=== PATIENT | male | born 1945 | race Caucasian/White ===

== ENCOUNTER → 2017-06-30 11:15 | Outpatient (CLI) | payer MEDICARE, SELFPAY ==
[2017-06-30 11:55] LABS: Absolute Lymphocyte Count 1.87 X10^3/ul (0.83-4.51); Absolute Neutrophil Count 5.7 X10^3/uL (2.0-7.7); Basophil# 0.01 X10^3/uL; Basophil% 0.1 % (0-1); Eosinophil# 0.14 X10^3/uL; Eosinophils% 1.7 % (0-5); Hematocrit 53.6 % (40-54); Lymphocyte # 1.87 X10^3/ul (4.0); Lymphocyte % 22.7 % (19-41); Mean Corp Hgb Conc 33.8 g/gl (32-36); Mean Corpuscular Hgb 33.3 pg (27.0-32.0); Mean Corpuscular Volume 98.7 fL (80-94); Mean Platelet Vol. 10.6 fl (6.2-12.0); Monocyte% 6.1 % (0-10); Neutrophil # 5.71 X10^3/uL (2.7-7.7); Neutrophil % 69.2 % (47-70); Platelet Count 126 K/mm3 (150-450); RBC Distribution Width CV 14.5 % (11.6-14.6); RBC Distribution Width SD 52.6 fl (35.1-43.9); Red Blood Count 5.43 M/mm3 (4.6-6.2); White Blood Count 8.3 K/mm3 (4.4-11.0)
[2017-06-30 11:57] LABS: POSITIVE COUNT NO; POSITIVE DIFFERENTIAL NO; POSITIVE MORPHOLOGY NO
[2017-06-30 11:58] LABS: Hemoglobin 18.1 g/dl (13.0-16.5)
[2017-06-30 12:37] LABS: ALB/GLOB Ratio 0.8 RATIO (0.9-2.4); AST(SGOT) 22 U/L (15-37); Alanine Aminotransfer ALT/SGPT 29 U/L (16-61); Albumin, Serum 3.2 g/dL (3.2-5.0); Alkaline Phosphatase 65 U/L (45-117); Anion Gap 7 (5-15); BUN 33 mg/dL (7-18); BUN/Creat Ratio 16.9 RATIO (10-20); Calcium,Total 8.4 mg/dL (8.5-10.1); Chloride 104 mmol/L (98-107); Cholesterol 112 mg/dL (200); Creatinine, Serum 1.95 mg/dL (0.70-1.30); EST Glomerular Filtration Rate 36 mL/min (>60); Est Glom Filt Rate - Afr Amer 44 mL/min (>60); Globulin 3.9 g/dL (2.2-4.2); Glucose 236 mg/dL (74-106); High Density Lipoprotein 37 mg/dL; Iron 81 ug/dL (65-175); PSA,Total - Annual Screen 0.87 ng/mL (0.00-4.00); Potassium 4.7 mmol/L (3.5-5.1); Protein, Total 7.1 g/dL (6.4-8.2); Sodium Level 138 mmol/L (136-145); Thyroid Stim Hormone (TSH) 3.93 uIU/mL (0.358-3.74); Triglycerides 117 mg/dL; Very Low Density Lipoprotein 23 mg/dL (5-40)
[2017-07-01 09:00] LABS: Vitamin D,25 Hydroxy 15.7 ng/mL (29.95-100.01)
== END ==
PROVIDERS: Family Medicine; Family Provider Family Medicine; PCP Family Medicine; Visit Provider Family Medicine
DX: E11.49 Type 2 diabetes mellitus with other diabetic neurological complication (principal); E11.65 Type 2 diabetes mellitus with hyperglycemia; I50.812 Chronic right heart failure; R39.12 Poor urinary stream; Z12.5 Encounter for screening for malignant neoplasm of prostate
CPT/HCPCS: 36415; 80053; 80061; 82306; 83540; 84153; 84443; 85025; G0103

== ENCOUNTER → 2017-08-11 09:40 | Outpatient (CLI) | payer MEDICARE, SELFPAY ==
[2017-08-12 08:42] LABS: Vitamin B12 576 pg/mL (211-911)
[2017-08-13 09:25] LABS: PSA, Free 0.17 ng/mL; PSA, Free % 24.3 % (.); PSA, Total Ultrasensitive 0.7 ng/mL (0.0-4.0)
== END ==
PROVIDERS: Family Provider Family Medicine; PCP Family Medicine; Visit Provider Family Medicine
DX: D53.1 Other megaloblastic anemias, not elsewhere classified (principal); R68.82 Decreased libido
CPT/HCPCS: 36415; 82607; 82746; 84153; 84154; 84403

== ENCOUNTER → 2017-09-18 07:10 | Outpatient (CLI) | payer MEDICARE, SELFPAY ==
--- NOTE | 2017-09-19 06:16 | PFTCOMP ---
COMPLETE PULMONARY FUNCTION TEST INTERPRETATION Brief HPI: Patient is a 71 year old male, currently under the care of Dr. Molina, who presents to [facility] for complete pulmonary function tests secondary to diagnosis of high-risk med use. Respiratory therapist reports good effort and reproducible results. Interpretation: Forced expiration spirometry shows no large airways obstructive ventilatory defect with an FEV1 of 75% predicted. There is no significant bronchodilator response by ATS criteria. Spirograms are of good quality and plateau slowly, indicating slowly emptying areas of the lungs. The respiratory flow volume loop shows decreased expiratory flow rates at high lung volumes consistent with small airways obstruction. Lung volumes by body plethysmography show a decreased total lung capacity at 5.88 L, 84% predicted. All other lung volumes are reduced symmetrically. Diffusion capacity by carbon monoxide is decreased at 59% predicted. The airway resistance is elevated. Compared to previous pulmonary function tests from 01/31/2016, there has been a significant reduction in DLCO by 23%. Impression: Mild restrictive ventilatory defect with a reduction diffusing capacity. There has been significant worsening in diffusing capacity compared to previous study. Consider high-resolution CT of the chest to evaluate for amiodarone toxicity versus possible fluid overload
== END ==
PROVIDERS: Family Provider Family Medicine; PCP Family Medicine; Visit Provider Internal Medicine Cardiovascular Disease
DX: I25.10 Atherosclerotic heart disease of native coronary artery without angina pectoris (principal); F17.200 Nicotine dependence, unspecified, uncomplicated; I25.5 Ischemic cardiomyopathy; I25.2 Old myocardial infarction; E78.5 Hyperlipidemia, unspecified; I10 Essential (primary) hypertension; E66.9 Obesity, unspecified; Z95.810 Presence of automatic (implantable) cardiac defibrillator
CPT/HCPCS: 94060; 94726; 94729

== ENCOUNTER 2018-01-02 07:40 | Emergency (ER) | payer MEDICARE, SELFPAY ==
[2018-01-02 07:41] VITALS: BP 137/76; PULSE 66; RESP 14; TEMP 36.8; O2SAT 95; BMI 32.3
--- NOTE | 2018-01-02 08:16 | VDLE_ITS ---
Reason For Study: LEG PAIN RIGHT LEFT GSV is normal. GSV is normal. CFV is compressible, spontaneous, phasic, CFV is compressible, spontaneous, phasic, competent and demonstrates normal competent, and demonstrates normal augmentation. augmentation. FV is compressible, spontaneous, phasic, FV is compressible, spontaneous, phasic, competent and demonstrates normal competent and demonstrates normal augmentation. augmentation. POP V is compressible, spontaneous, phasic, POP V is compressible, spontaneous, phasic, competent and demonstrates normal competent and demonstrates normal augmentation. augmentation. T/P Trunk is compressible. T/P Trunk is compressible. PTV is compressible. PTV is compressible. RT PerV is compressible. LT PerV is compressible. Procedure Exam performed portable in ED. A preliminary report was called and/or faxed to Dr. Christine. Interpretation Summary Deep veins of the lower extremities are bilaterally patent and compressible segmentally. There is no evidence of deep vein thrombosis on either side. Valvular competence appears intact within the proximal deep venous systems bilaterally. The greater saphenous veins appear bilaterally patent and compressible segmentally. Ordering Physician: Noris Christine Referring Physician: Nathen Chang MD Performed By: Mary Morrison RVT
--- NOTE | 2018-01-02 08:20 | ED.DCSUM_ITS ---
- ER Visit Summary Date of Service: 01/02/18 Chief Complaint: Bilateral lower extremity pain History of Present Illness: The patient is a 72 M with history of diabetic neuropathy who presents for worsening lower extremity pain. Patient states he was on his feet a lot yesterday. He got up during the night to use the bathroom and can barely put weight on his lower extremities secondary to pain. His normal diabetic neuropathy is just numbness on the bottom of his feet. Now he is having pain on the dorsum of the feet and up the calves to his knees, especially on the left. Patient denies any fever, chest pain, shortness of breath. No history of DVT or PE. No history of recent travel or surgery. Jovanna bennett has a pacemaker/defibrillator but is not on any blood thinners other than baby aspirin. Physical Examination: Vital signs: afebrile, hemodynamically stable, no hypoxia on room air General: well nourished, well developed, in no distress Skin: warm, dry, no rash, no pallor HEENT: normocephalic and atraumatic; PERRL, EOMI, moist mucous membranes Cardiovascular: regular rate and rhythm without murmurs, no peripheral edema, 2+ pulses all distal extremities Respiratory: No increased work of breathing, lungs are clear to auscultation bilaterally, no rales, rhonchi or wheezing Abdominal: Abdomen is soft, nontender with normoactive bowel sounds, no guarding or rebound, no masses MSK: Moves all extremities, no deformities, normal strength, tenderness to palpation of the dorsum of the feet, tenderness to palpation of the left posterior calf, no asymmetry or overt swelling to the calves, no palpable cords. Pain with flexion and extension of the left knee. Neuro: Awake and alert, oriented ?4. No facial droop, sensation and motor function intact and symmetric Test Results: Medications Given Discontinued Medications Hydrocodone Bitart/Acetaminophen ([place] 5mg-325mg) 1 tablet PO X1 ONE Stop: 01/02/18 08:17 Last Admin: 01/02/18 08:22 Dose: 1 tablet Emergency Department Course and Treatment: Patient was given a dose of [place] for his pain. He has a solitary kidney and thus cannot take NSAIDs. Patient specifically asked about Lyrica for his neuropathy, and we discussed that this is a medication best prescribed by his primary care doctor after weighing risks and benefits of the medication. Because of the acute change in patient's neuropathic pain, other causes of pain were considered in addition to worsening neuropathy. Patient's lower extremities are warm with good strong distal pulses, making vascular insufficiency unlikely. Ultrasound performed of bilateral lower extremities to rule out DVT. Ultrasound negative. Patient had no joint swelling or erythema, and had multiple joints involved, making septic joint unlikely. He has no fever or other systemic symptoms. Patient does have a history of gout in his left great toe, however his current complaint does not seem consistent with pain secondary to gout flare. On reevaluation, patient was feeling better after the pain medication. Patient was given a prescription for [place] to use for severe pain and was encouraged to use regular Tylenol for mild to moderate pain. He will not exceed 3000 mg of Tylenol in 24 hours. He will follow-up with his family doctor on Thursday, especially if he continues to have symptoms. Return precautions given. Patient discharged home in improved condition with his driving. Treatment Plan: [] Disposition: [] Impression: Bilateral lower extremity pain, history of diabetic neuropathy This note was generated with [employer] dictation software. It may contain incorrect words, spelling, and punctuation that were not noted in review of the chart prior to signing ED Disposition - Plan for ED Patient: Disposition: Home or Assisted Living Chief Complaint: Other, Pain/Inj Instructions: ED Joint Pain, ED Neuropathy Peripheral Prescriptions: Hydrocodone Bitart/Apap 5-325 [[place] 5MG-325MG] 1 tab PO Q6H PRN PRN 5 Days #15 tab PRN Reason: Pain Referrals: Nathen Chang MD [Primary Care Provider] - 3-5 Days Additional Instructions: Use Tylenol as needed for mild to moderate pain, and use the [place] for severe pain. Be very cautious when using the [place], as it may make you sleepy or make you feel loopy. Follow-up with your doctor on Thursday, especially if you are not having improvement. If at any time you have worsening of your condition, such as development of fever, severe worsening pain, or any other new symptoms, return immediately to the emergency department for another evaluation.
[2018-01-02] MEDS: HYDROcodone Bitartrate/Apap 5/325 Tablet PO (08:22)
[2018-01-02 10:05] VITALS: BP 151/70; PULSE 65; RESP 14; O2SAT 96
--- NOTE | 2018-01-02 10:18 | ED.DEP ---
ED Disposition - Plan for ED Patient: Disposition: Home or Assisted Living Chief Complaint: Other, Pain/Inj Instructions: ED Joint Pain, ED Neuropathy Peripheral Prescriptions: Hydrocodone Bitart/Apap 5-325 [[place] 5MG-325MG] 1 tab PO Q6H PRN PRN 5 Days #15 tab PRN Reason: Pain Referrals: Nathen Chang MD [Primary Care Provider] - 3-5 Days Additional Instructions: Use Tylenol as needed for mild to moderate pain, and use the [place] for severe pain. Be very cautious when using the [place], as it may make you sleepy or make you feel loopy. Follow-up with your doctor on Thursday, especially if you are not having improvement. If at any time you have worsening of your condition, such as development of fever, severe worsening pain, or any other new symptoms, return immediately to the emergency department for another evaluation.
== END 2018-01-02 10:27 | disposition home or self-care (01) ==
PROVIDERS: Emergency Provider Emergency Medicine; Family Provider Family Medicine; PCP Family Medicine
DX: M79.662 Pain in left lower leg (principal); M79.661 Pain in right lower leg; E11.42 Type 2 diabetes mellitus with diabetic polyneuropathy; I25.10 Atherosclerotic heart disease of native coronary artery without angina pectoris; I25.2 Old myocardial infarction; Z79.4 Long term (current) use of insulin; Z79.82 Long term (current) use of aspirin; Z79.899 Other long term (current) drug therapy; Z95.810 Presence of automatic (implantable) cardiac defibrillator
CPT/HCPCS: 93970; 99284

== ENCOUNTER → 2018-01-13 12:17 | Outpatient (CLI) | payer MEDICARE, SELFPAY ==
--- NOTE | 2018-01-13 12:21 | RAD_ITS ---
STUDY: X-RAY - LEFT FOOT CLINICAL: Male, 72 years old. Pain TECHNIQUE: 3 view(s) of the foot. COMPARISON: None. FINDINGS: Normal talus, calcaneus, and tarsal bones. Normal visualized subtalar, talonavicular, calcaneocuboid, tarsal and tarsometatarsal articulations. Normal metatarsi. There is degenerative arthrosis of the metatarsophalangeal joint of the hallux . Normal tibial and fibular sesamoid bones. Normal interphalangeal joint of the great toe. Normal phalanges of the great toe. Normal second through fifth metatarsophalangeal joints. Normal interphalangeal joints and phalanges of the lesser toes. The soft tissue structures are unremarkable. RAD/Foot min 3 Views IMPRESSION: There is NO fracture or malalignment. 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 Electronically Signed: Marty Bentley MD at 7:43 EDT , Service support ,
--- NOTE | 2018-01-13 12:28 | RAD_ITS ---
STUDY: X-RAY - RIGHT FOOT CLINICAL: Male, 72 years old. Bilateral foot pain TECHNIQUE: 3 view(s) of the foot. COMPARISON: None. FINDINGS: Normal talus, calcaneus, and tarsal bones. Normal visualized subtalar, talonavicular, calcaneocuboid, tarsal and tarsometatarsal articulations. Normal metatarsi. There is degenerative arthrosis of the metatarsophalangeal joint of the hallux . Normal tibial and fibular sesamoid bones. Normal interphalangeal joint of the great toe. Normal phalanges of the great toe. Normal second through fifth metatarsophalangeal joints. Normal interphalangeal joints and phalanges of the lesser toes. The soft tissue structures are unremarkable. 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 No erosive arthropathy. Electronically Signed: Judah Herrera MD at 8:12 EDT , Service support ,
== END ==
PROVIDERS: Family Provider Family Medicine; PCP Family Medicine; Referring Provider Family Medicine; Visit Provider Family Medicine
DX: M77.42 Metatarsalgia, left foot (principal)
CPT/HCPCS: 73630

== ENCOUNTER → 2018-02-22 14:42 | Outpatient (CLI) | payer MEDICARE, SELFPAY ==
[2018-02-22 16:14] LABS: Absolute Lymphocyte Count 1.82 X10^3/ul (0.83-4.51); Absolute Neutrophil Count 4.6 X10^3/uL (2.0-7.7); Basophil# 0.02 X10^3/uL; Basophil% 0.3 % (0-1); Eosinophils% 1.4 % (0-5); Hematocrit 48.7 % (40-54); Hemoglobin 16.8 g/dl (13.0-16.5); Lymphocyte # 1.82 X10^3/ul (4.0); Lymphocyte % 25.4 % (19-41); Mean Corp Hgb Conc 34.5 g/gl (32-36); Mean Corpuscular Hgb 33.4 pg (27.0-32.0); Mean Corpuscular Volume 96.8 fL (80-94); Monocyte# 0.58 X10^3/uL; Monocyte% 8.1 % (0-10); Neutrophil # 4.61 X10^3/uL (2.7-7.7); Neutrophil % 64.4 % (47-70); Platelet Count 152 K/mm3 (150-450); RBC Distribution Width CV 14.1 % (11.6-14.6); RBC Distribution Width SD 49.3 fl (35.1-43.9); Red Blood Count 5.03 M/mm3 (4.6-6.2); White Blood Count 7.2 K/mm3 (4.4-11.0)
[2018-02-22 16:23] LABS: POSITIVE COUNT NO; POSITIVE DIFFERENTIAL NO; POSITIVE MORPHOLOGY NO
[2018-02-22 16:25] LABS: Hemoglobin A1c 8.3 % (4.2-6.3)
[2018-02-22 16:36] LABS: AST(SGOT) 17 U/L (15-37); Alanine Aminotransfer ALT/SGPT 25 U/L (16-61); Albumin, Serum 3.4 g/dL (3.2-5.0); Alkaline Phosphatase 68 U/L (45-117); Anion Gap 9 (5-15); BUN 33 mg/dL (7-18); BUN/Creat Ratio 17.6 RATIO (10-20); Calcium,Total 8.8 mg/dL (8.5-10.1); Chloride 101 mmol/L (98-107); Creatinine, Serum 1.88 mg/dL (0.70-1.30); EST Glomerular Filtration Rate 38 mL/min (>60); Est Glom Filt Rate - Afr Amer 46 mL/min (>60); Globulin 3.4 g/dL (2.2-4.2); Glucose 310 mg/dL (74-106); Potassium 4.4 mmol/L (3.5-5.1); Protein, Total 6.8 g/dL (6.4-8.2); Sodium Level 139 mmol/L (136-145); Thyroid Stim Hormone (TSH) 0.86 uIU/mL (0.358-3.74)
[2018-02-22 17:12] LABS: Microalbumin:Creatinine Ratio 103.8 mg/g CRE (<30 mg/g CRE)
== END ==
PROVIDERS: Family Provider Family Medicine; PCP Family Medicine; Visit Provider Family Medicine
DX: J44.1 Chronic obstructive pulmonary disease with (acute) exacerbation (principal); E11.49 Type 2 diabetes mellitus with other diabetic neurological complication
CPT/HCPCS: 36415; 80053; 82043; 82570; 83036; 84443; 85025

== ENCOUNTER 2018-06-03 02:01 | Emergency (ER) | payer MEDICARE, SELFPAY ==
[2018-03-12 11:21] VITALS: BMI 32.3
[2018-06-03] VITALS (7 sets, daily range): BP systolic 95–138; BP diastolic 58–116; PULSE 153–155; RESP 19–25; TEMP 36.5; O2SAT 93–97; BMI 33.6
--- NOTE | 2018-06-03 02:20 | RAD_ITS ---
STUDY: X-RAY CHEST REASON FOR EXAM: Male, 72 years old. Heartburn and diaphoresis TECHNIQUE: Single AP portable view of the chest. COMPARISON: 07/03/2016 FINDINGS: Mild patchy airspace infiltration at bilateral medial lung bases, slightly more prominent compared to prior imaging . No pleural effusion or pneumothorax. Borderline cardiomegaly. Left subclavian pacemaker in place. Normal mediastinum and duke. Normal visualized pulmonary arteries. There is atherosclerotic calcification of the aortic arch. Normal visualized thoracic spine. Normal visualized ribs, clavicles, and shoulders. There is no demonstrated abnormality of the visualized soft tissue structures of the upper abdomen. RAD/Chest 1 View (Portable) IMPRESSION: Bilateral medial lung base atelectasis versus infiltrate Electronically Signed: Vineet Conley MD at 2:36 EST Tel , Service support ,
--- NOTE | 2018-06-03 02:20 | EKG12_ITS ---
Test Reason : CP Blood Pressure : / mmHG Vent. Rate : 154 BPM Atrial Rate : 122 BPM P-R Int : 000 ms QRS Dur : 120 ms QT Int : 326 ms P-R-T Axes : 000 250 056 degrees QTc Int : 522 ms Probably V Tachycardia Right bundle branch block Possible Lateral infarct , age undetermined Abnormal ECG Confirmed by RICK ARCE, VIKKI ([id number]), editor in chief GONZALO WEEKS ([id number] on 06/03/2018 3:38:22 PM Referred By: JOSE Confirmed By:VIKKI CABRERA MD
[2018-06-03 02:30] LABS: Absolute Lymphocyte Count 2.47 X10^3/ul (0.83-4.51); Absolute Neutrophil Count 6.2 X10^3/uL (2.0-7.7); Basophil# 0.02 X10^3/uL; Basophil% 0.2 % (0-1); Eosinophil# 0.24 X10^3/uL; Eosinophils% 2.4 % (0-5); Hematocrit 50.7 % (40-54); Hemoglobin 17.5 g/dl (13.0-16.5); Lymphocyte # 2.47 X10^3/ul (4.0); Lymphocyte % 24.9 % (19-41); Mean Corp Hgb Conc 34.5 g/gl (32-36); Mean Corpuscular Hgb 33.5 pg (27.0-32.0); Mean Corpuscular Volume 96.9 fL (80-94); Mean Platelet Vol. 10.4 fl (6.2-12.0); Monocyte# 0.97 X10^3/uL; Monocyte% 9.8 % (0-10); Neutrophil # 6.19 X10^3/uL (2.7-7.7); Neutrophil % 62.5 % (47-70); Platelet Count 156 K/mm3 (150-450); RBC Distribution Width CV 13.5 % (11.6-14.6); RBC Distribution Width SD 48.3 fl (35.1-43.9); Red Blood Count 5.23 M/mm3 (4.6-6.2); White Blood Count 9.9 K/mm3 (4.4-11.0)
[2018-06-03] MEDS: dilTIAZem 25 MG/5 ML Vial 15 MG IV BOLUS (02:31)
[2018-06-03] MEDS: Aspirin 81 MG TAB.CHEW 324 MG PO (02:31)
[2018-06-03] MEDS: 0.9% Normal Saline 1,000 ML 150 ML IV (02:34)
[2018-06-03 02:35] LABS: Partial Thromboplast Time 37.2 Seconds (24.1-36.2)
[2018-06-03 02:36] LABS: POSITIVE COUNT NO; POSITIVE DIFFERENTIAL NO; POSITIVE MORPHOLOGY NO
--- NOTE | 2018-06-03 02:36 | ED.VIS.GEN ---
History of Present Illness Chief Complaint: Chest Pain Informant: Patient, Cnp Onset: Hours - 1-2 Context: Sudden Onset - awoke him from sleep Timing: Intermittent, Lasts - several minutes Quality: burning Location: substernal. no radiation. Current Severity: gone Maximum Severity: Moderate Worsened by: nothing Relieved by: nothing Associated Symptoms: sweating. no palpitations, racing HB, sob, lightheadedness. Narrative: Other than feeling malaised/a little weak now, patient feels fine. EMS transmitted to prehospital EKGs, both the same, showing a wide complex tachycardia without acute injury. Patient states he woke up suddenly, covered in sweat. He states this happened the last time he was diagnosed with a heart attack. 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 He has not driven a truck since. He denies any recent long travel or hospitalizations or recent illnesses, no leg pain or swelling. 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 Paternal Family History: Reports: - - colon cancer. Review of Systems General: Reports: Malaise, Sweats. Denies: Chills, Fever Eyes: Denies: Visual changes - bilaterally, Diplopia ENT: Denies: Rhinorrhea, Sore throat Cardiovascular: Reports: Chest pain. Denies: Palpitations, Heart racing Respiratory: Denies: Dyspnea, Cough, Dyspnea on exertion Gastrointestinal: Denies: Abdominal pain, Nausea, Vomiting, Diarrhea, Melena, Hematochezia Genitourinary: Denies: Dysuria, Hematuria, Frequency Musculoskeletal: Denies: Back pain, Extremity Pain Skin: Denies: Rash, Wounds Neurological: Denies: Headache, Weakness, Numbness Physical Exam Vital Signs/Narrative: Vital Signs Temp Pulse Resp BP Pulse Ox 06/03/18 02:30 153 H 19 H 108/61 94 06/03/18 02:03 97.7 F L 154 H 24 H 138/77 H 95 Inital Vital Signs reviewed: Yes General: Well nourished, Well developed, No Acute Distress Head: Normocephalic, Atraumatic Eyes: Perrl, EOMI ENT: Moist mucous membranes, No rhinorrhea Neck: Supple, Nontender, No JVD Cardiovascular: Regular rate, Regular rhythm, No murmurs, Tachycardia Respiratory: No distress, Chest nontender, Wheezing - slight expiratory bilat Abdomen: Soft, Nontender, Nondistended, Normal bowel sounds Back: Nontender, Normal Inspection Extremities: Nontender, No edema. Negative for: Calf Tenderness Skin: Normal color, No rash Neurological: Alert, Oriented x3, Cranial nerves II-XII grossly intact, Normal Strength, Normal Sensation Psychological: Normal affect, Normal Mood Diagnostic/Tx/Re-eval Impressions Chest X-Ray 06/03/18 02:20 IMPRESSION: Bilateral medial lung base atelectasis versus infiltrate Electronically Signed: Vineet Conley MD at 2:36 EST Tel , Service support , 06/03/18 02:20 Chest 1 View (Portable) [RAD] Stat Laboratory Results 06/03/18 06/03/18 06/03/18 02:09 02:09 02:09 WBC 9.9 RBC 5.23 Hgb 17.5 H Hct 50.7 MCV 96.9 H MCH 33.5 H MCHC 34.5 RDW 13.5 RDW Differential 48.3 H Plt Count 156 MPV 10.4 Immature Gran % (Auto) 0.200 Neut % (Auto) 62.5 Lymph % (Auto) 24.9 Gilmer % (Auto) 9.8 Eos % (Auto) 2.4 Baso % (Auto) 0.2 Absolute Neuts (auto) 6.2 Absolute Lymphs (auto) 2.47 Total Counted Not Reportable APTT 37.2 H Sodium 136 Potassium 4.2 Chloride 104 Carbon Dioxide 25.0 Anion Gap 7 BUN 32 H Creatinine 1.79 H Estim Creat Clear Calc 40.94 Est GFR (MDRD) Af Amer 48 L Est GFR (MDRD) Non-Af 40 L BUN/Creatinine Ratio 17.9 Glucose 263 H Calcium 9.1 Troponin I < 0.015 - Rhythm Strip Rhythm Strip: tachycardia Rate: 150 Ectopy: None - EKG Initial EKG Interpretation: No Acute Injury Pattern, S-T Depression - V1-2, 1-2mm w/o recip chgs, - - wide complex tachycardia at around 150 Prior: Changed - Narrow complex rhythm - Medical Decision Making Patient initially was given IV fluids, aspirin, along with a dose of IV Cardizem. It did not change his rate or rhythm at all, it temporarily dropped his blood pressure, he then responded to some fluid bolusing, he was never symptomatic with that although he did develop some chest discomfort that was relatively mild. No dyspnea or lightheadedness. He has an allergy to amiodarone, he does not know what happened when he was on it, and it is not well documented except for the fact that he was removed from it because of his allergy. I discussed with cardiology Dr. Simms, given his history he recommends sedating him and performing cardioversion, indicating that if he is in ventricular tachycardia and it is slow because of his Coreg, it may not be fast enough to trigger his AICD, which has not got off this morning. We did this, and it did not break his rhythm. Dr. Simms also recommends transfer to a center that has electrophysical cardiology capability. I discussed this with the patient and he chooses [facility], since that was the EP frame expander Dr. Armijo that he saw before. Discussed with the defect cutter who advised that he be sent to the ER. Discussed with Dr. Ibarra in the emergency department who accepts him. - Critical Care Time Critical care time (excluding procedures): 30-74 minutes - 35 min, Including time spent:, Discussing w/Patient &/or Family/Return Checker, Discussing w/Consultants, Arranging Admission or Transfer, Performing Direct Patient Care at Bedside - not including procedures Procedures Procedure(s): Procedural sedation -- patient given fentanyl 50 mcg followed by etomidate 10 mg. No complications. Recovered uneventfully. Electric cardioversion -- under moderate sedation, patient initially shocked with 200 J biphasic, he had some pacemaker spikes during ventricular pause, but then continued with wide-complex tachycardia. This was repeated with 300 J and 360 J, all biphasic, with the same result. Blood pressure remained stable. ED Disposition - Plan for ED Patient: Disposition: [facility] Diagnosis: Chest pain, unspecified, Wide-complex tachycardia, History of coronary artery disease Referrals: Nathen Chang MD [Primary Care Provider] -
--- NOTE | 2018-06-03 02:40 | ED.DCSUM_ITS ---
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 no radiation. Current Severity: gone Maximum Severity: Moderate Worsened by: nothing Relieved by: nothing Associated Symptoms: sweating. no palpitations, racing HB, sob, lightheadedness. Narrative: Other than feeling malaised/a little weak now, patient feels fine. EMS transmitted to prehospital EKGs, both the same, showing a wide complex tachycardia without acute injury. Patient states he woke up suddenly, covered in sweat. He states this happened the last time he was diagnosed with a heart attack. 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 He has not driven a truck since. He denies any rece nt long travel or hospitalizations or recent illnesses, no leg pain or swelling. 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 Paternal Family History: Reports: - - colon cancer. Review of Systems General: Reports: Malaise, Sweats. Denies: Chills, Fever Eyes: Denies: Visual changes - bilaterally, Diplopia ENT: Denies: Rhinorrhea, Sore throat Cardiovascular: Reports: Chest pain. Denies: Palpitations, Heart racing Respiratory: Denies: Dyspnea, Cough, Dyspnea on exertion Gastrointestinal: Denies: Abdominal pain, Nausea, Vomiting, Diarrhea, Melena, Hematochezia Genitourinary: Denies: Dysuria, Hematuria, Frequency Musculoskeletal: Denies: Back pain, Extremity Pain Skin: Denies: Rash, Wounds Neurological: Denies: Headache, Weakness, Numbness Physical Exam Vital Signs/Narrative: Vital Signs Temp Pulse Resp BP Pulse Ox 06/03/18 02:30 153 H 19 H 108/61 94 06/03/18 02:03 97.7 F L 154 H 24 H 138/77 H 95 Inital Vital Signs reviewed: Yes General: Well nourished, Well developed, No Acute Distress Head: Normocephalic, Atraumatic Eyes: Perrl, EOMI ENT: Moist mucous membranes, No rhinorrhea Neck: Supple, Nontender, No JVD Cardiovascular: Regular rate, Regular rhythm, No murmurs, Tachycardia Respiratory: No distress, Chest nontender, Wheezing - slight expiratory bilat Abdomen: Soft, Nontender, Nondistended, Normal bowel sounds Back: Nontender, Normal Inspection Extremities: Nontender, No edema. Negative for: Calf Tenderness Skin: Normal color, No rash Neurological: Alert, Oriented x3, Cranial nerves II-XII grossly intact, Normal Strength, Normal Sensation Psychological: Normal affect, Normal Mood Diagnostic/Tx/Re-eval Impressions Chest X-Ray 06/03/18 02:20 IMPRESSION: Bilateral medial lung base atelectasis versus infiltrate Electronically Signed: Vineet Conley MD at 2:36 EST Tel , Service support , 06/03/18 02:20 Chest 1 View (Portable) [RAD] Stat Laboratory Results 06/03/18 06/03/18 06/03/18 02:09 02:09 02:09 WBC 9.9 RBC 5.23 Hgb 17.5 H Hct 50.7 MCV 96.9 H MCH 33.5 H MCHC 34.5 RDW 13.5 RDW Differential 48.3 H Plt Count 156 MPV 10.4 Immature Gran % (Auto) 0.200 Neut % (Auto) 62.5 Lymph % (Auto) 24.9 [place] % (Auto) 9.8 Eos % (Auto) 2.4 Baso % (Auto) 0.2 Absolute Neuts (auto) 6.2 Absolute Lymphs (auto) 2.47 Total Counted Not Reportable APTT 37.2 H Sodium 136 Potassium 4.2 Chloride 104 Carbon Dioxide 25.0 Anion Gap 7 BUN 32 H Creatinine 1.79 H Estim Creat Clear Calc 40.94 Est GFR (MDRD) Af Amer 48 L Est GFR (MDRD) Non-Af 40 L BUN/Creatinine Ratio 17.9 Glucose 263 H Calcium 9.1 Troponin I < 0.015 - Rhythm Strip Rhythm Strip: tachycardia Rate: 150 Ectopy: None - EKG Initial EKG Interpretation: No Acute Injury Pattern, S-T Depression - V1-2, 1-2mm w/o recip chgs, - - wide complex tachycardia at around 150 Prior: Changed - Narrow complex rhythm - Medical Decision Making Patient initially was given IV fluids, aspirin, along with a dose of IV Cardizem. It did not change his rate or rhythm at all, it temporarily dropped his blood pressure, he then responded to some fluid bolusing, he was never symptomatic with that although he did develop some chest discomfort that was relatively mild. No dyspnea or lightheadedness. He has an allergy to amiodarone, he does not know what happened when he was on it, and it is not well documented except for the fact that he was removed from it because of his allergy. I discussed with cardiology Dr. Simms, given his history he recommends sedating him and performing cardioversion, indicating that if he is in ventricular tachycardia and it is slow because of his Coreg, it may not be fast enough to trigger his AICD, which has not got off this morning. We did this, and it did not break his rhythm. Dr. Simms also recommends transfer to a center that has electrophysical cardiology capability. 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 Discussed with the form setter supervisor who advised that he be sent to the ER. Discussed with Dr. Ibarra in the emergency department who accepts him. - Critical Care Time Critical care time (excluding procedures): 30-74 minutes - 35 min, Including time spent:, Discussing w/Patient &/or Family/Dental Surgery Doctor, Discussing w/Consultants, Arranging Admission or Transfer, Performing Direct Patient Care at Bedside - not including procedures Procedures Procedure(s): Procedural sedation -- patient given fentanyl 50 mcg followed by etomidate 10 mg. No complications. Recovered uneventfully. Electric cardioversion -- under moderate sedation, patient initially shocked with 200 J biphasic, he had some pacemaker spikes during ventricular pause, but then continued with wide-complex tachycardia. This was repeated with 300 J and 360 J, all biphasic, with the same result. Blood pressure remained stable. ED Disposition - Plan for ED Patient: Disposition: [facility] Diagnosis: Chest pain, unspecified, Wide-complex tachycardia, History of coronary artery disease Referrals: Nathen Cahng MD [Primary Care Provider] -
[2018-06-03 02:44] LABS: Anion Gap 7 (5-15); BUN 32 mg/dL (7-18); BUN/Creat Ratio 17.9 RATIO (10-20); Calcium,Total 9.1 mg/dL (8.5-10.1); Chloride 104 mmol/L (98-107); Creatinine, Serum 1.79 mg/dL (0.70-1.30); EST Glomerular Filtration Rate 40 mL/min (>60); Est Glom Filt Rate - Afr Amer 48 mL/min (>60); Estimated Creatinine Clearance 40.94 ml/min; Glucose 263 mg/dL (74-106); Potassium 4.2 mmol/L (3.5-5.1); Sodium Level 136 mmol/L (136-145)
[2018-06-03] MEDS: fentaNYL 100 MCG/2 ML Ampul 50 MCG IV (03:39)
== END 2018-06-03 05:01 | disposition short-term general hospital (02) ==
PROVIDERS: Emergency Provider Emergency Medicine; Family Provider Family Medicine; PCP Family Medicine
DX: R07.9 Chest pain, unspecified (principal); R00.0 Tachycardia, unspecified; I25.10 Atherosclerotic heart disease of native coronary artery without angina pectoris; F17.200 Nicotine dependence, unspecified, uncomplicated; I10 Essential (primary) hypertension; E78.5 Hyperlipidemia, unspecified; I25.2 Old myocardial infarction; Z95.810 Presence of automatic (implantable) cardiac defibrillator; Z79.4 Long term (current) use of insulin; Z79.82 Long term (current) use of aspirin; Z79.899 Other long term (current) drug therapy
CPT/HCPCS: 71045; 80048; 84484; 85025; 85730; 92960; 93005; 96361; 96374; 96375; 99285; J7030; A4216

== ENCOUNTER → 2018-08-20 | Outpatient (CLI) | payer MEDICARE, SELFPAY ==
[2018-08-16 13:15] VITALS: BMI 31.7
[2018-08-20 09:50] LABS: AST(SGOT) 19 U/L (15-37); Alanine Aminotransfer ALT/SGPT 22 U/L (16-61); Albumin, Serum 3.3 g/dL (3.2-5.0); Alkaline Phosphatase 68 U/L (45-117); Bilirubin, Direct 0.15 mg/dL (0.00-0.30); Cholesterol 130 mg/dL (200); Globulin 3.9 g/dL (2.2-4.2); High Density Lipoprotein 29 mg/dL; Protein, Total 7.2 g/dL (6.4-8.2); Triglycerides 328 mg/dL; Very Low Density Lipoprotein 66 mg/dL (5-40)
== END | disposition home or self-care (01) ==
LOC: LAB 08:42
PROVIDERS: Family Provider Family Medicine; PCP Family Medicine; Referring Provider Internal Medicine Cardiovascular Disease; Visit Provider Internal Medicine Cardiovascular Disease
DX: E78.5 Hyperlipidemia, unspecified (principal); I25.10 Atherosclerotic heart disease of native coronary artery without angina pectoris
CPT/HCPCS: 36415; 80061; 80076

== ENCOUNTER 2018-09-12 12:39 | Emergency (ER) | payer MEDICARE, SELFPAY ==
[2018-08-27 10:01] VITALS: BMI 31.7
[2018-09-12 12:40] VITALS: BP 155/84; PULSE 66; RESP 18; TEMP 36.6; O2SAT 96; BMI 32.0
--- NOTE | 2018-09-12 13:08 | RAD_ITS ---
STUDY: X-RAY - ACUTE ABDOMINAL SERIES REASON FOR EXAM: Male, 72 years old. Abdominal pain TECHNIQUE: Single view of the chest. Supine, 4 view(s) of the abdomen were obtained. COMPARISON: None. FINDINGS: There is a left-sided pacemaker. The lungs are clear and expanded. Normal size heart. Normal mediastinum and duke. Normal visualized pulmonary arteries. Mildly calcified visualized aortic arch and descending thoracic aorta. There is a mild ileus pattern. The soft tissue structures of the abdomen and pelvis are unremarkable. Degenerative vertebral changes and slight scoliosis. RAD/Acute Abdomen Inc Chest IMPRESSION: Mild small bowel ileus. Electronically Signed: Yung Gabmle DO at 14:08 EDT Tel [phone], Service support ,
[2018-09-12] MEDS: 0.9% Normal Saline 1,000 ML 150 ML IV (13:20)
[2018-09-12 13:36] LABS: Absolute Lymphocyte Count 1.14 X10^3/ul (0.83-4.51); Absolute Neutrophil Count 7.4 X10^3/uL (2.0-7.7); Basophil# 0.01 X10^3/uL; Basophil% 0.1 % (0-1); Eosinophil# 0.07 X10^3/uL; Eosinophils% 0.7 % (0-5); Hematocrit 47.4 % (40-54); Hemoglobin 16.6 g/dl (13.0-16.5); Lymphocyte # 1.14 X10^3/ul (4.0); Lymphocyte % 11.9 % (19-41); Mean Corpuscular Hgb 32.2 pg (27.0-32.0); Mean Corpuscular Volume 91.9 fL (80-94); Mean Platelet Vol. 10.4 fl (6.2-12.0); Monocyte# 0.92 X10^3/uL; Monocyte% 9.6 % (0-10); Neutrophil # 7.44 X10^3/uL (2.7-7.7); Neutrophil % 77.4 % (47-70); Platelet Count 141 K/mm3 (150-450); RBC Distribution Width CV 13.9 % (11.6-14.6); Red Blood Count 5.16 M/mm3 (4.6-6.2); White Blood Count 9.6 K/mm3 (4.4-11.0)
[2018-09-12 13:44] LABS: AST(SGOT) 14 U/L (15-37); Alanine Aminotransfer ALT/SGPT 17 U/L (16-61); Albumin, Serum 3.4 g/dL (3.2-5.0); Alkaline Phosphatase 73 U/L (45-117); Anion Gap 9 (5-15); BUN 23 mg/dL (7-18); BUN/Creat Ratio 13.9 RATIO (10-20); Bilirubin, Direct 0.29 mg/dL (0.00-0.30); Calcium,Total 9.3 mg/dL (8.5-10.1); Chloride 98 mmol/L (98-107); Creatinine, Serum 1.65 mg/dL (0.70-1.30); EST Glomerular Filtration Rate 44 mL/min (>60); Est Glom Filt Rate - Afr Amer 53 mL/min (>60); Estimated Creatinine Clearance 44.42 ml/min; Glucose 364 mg/dL (74-106); Lipase 79 U/L (73-393); POSITIVE COUNT NO; POSITIVE DIFFERENTIAL NO; POSITIVE MORPHOLOGY NO; Potassium 4.7 mmol/L (3.5-5.1); Protein, Total 7.4 g/dL (6.4-8.2); Sodium Level 135 mmol/L (136-145)
--- NOTE | 2018-09-12 14:53 | ED.VISSUMM ---
- ER Visit Summary Date of Service: 09/12/18 Chief Complaint: Abdominal cramping History of Present Illness: The patient is a 72 M who is scheduled to have a colonoscopy tomorrow. He started his clear liquid diet yesterday. He developed severe abdominal cramping that kept him up all night. He denies any prior abdominal surgeries. He has had decreased flatus but did have passage of gas prior to arrival to the emergency room. Physical Examination: Vital signs unremarkable. Exam of the room patient is sleeping comfortably. I did physically shake his arm to wake him. Head neck examination is unremarkable. Heart is regular rate and rhythm. Lung sounds are clear. Abdomen is soft with very minimal mid abdominal tenderness. No guarding or rebound. Bowel sounds are present. Test Results: CBC was a hemoglobin of 16.6 which is consistent with his baseline. Platelet count is 141 which again is consistent with his previous. Chemistry studies reveal glucose of 364. BUN is 23 and creatinine is 1.65. This is consistent with his prior renal function. LFTs and lipase are normal. Acute abdominal series reveals a mild small bowel ileus. Emergency Department Course and Treatment: Patient was given IV fluids. I spoke with Dr. Earl, on-call for Dr. Cardona who is scheduled to do the patient's colonoscopy. She reviewed patient's imaging studies as well. At this time we will cancel his colonoscopy and reschedule when he is feeling better. He may resume diet, recommend starting with bland diet and advancing as tolerated. He is given Bentyl for abdominal cramping. Treatment Plan: [] Disposition: Discharge Impression: Mild ileus This note was generated with [employer] dictation software. It may contain incorrect words, spelling, and punctuation that were not noted in review of the chart prior to signing ED Disposition - Plan for ED Patient: Disposition: Home or Assisted Living Instructions: ED Abdominal Pain Unkn Cause Male Prescriptions: Dicyclomine HCl [Bentyl] 20 mg PO TIDAC #20 capsule Referrals: Nathen Chang MD [Primary Care Provider] - Christiano Cardona MD [STAFF PHYSICIAN] - 1-2 Weeks Additional Instructions: As discussed, your imaging studies revealed a mild ileus. Your colonoscopy for tomorrow has been cancelled and will be rescheduled when you are feeling better. Please follow a bland diet. Ambulate as possible. This will help your bowels move. Please be sure you are passing gas. Return for worsening symptoms or concerns.
[2018-09-12] MEDS: Dicyclomine 10 MG Capsule 20 MG PO (15:06)
[2018-09-12 15:14] VITALS: BP 147/82; PULSE 83; RESP 14; O2SAT 99
== END 2018-09-12 15:14 | disposition home or self-care (01) ==
PROVIDERS: Emergency Provider Emergency Medicine; Family Provider Family Medicine; PCP Family Medicine
DX: K56.7 Ileus, unspecified (principal); I25.10 Atherosclerotic heart disease of native coronary artery without angina pectoris; E11.9 Type 2 diabetes mellitus without complications; I10 Essential (primary) hypertension; Z72.0 Tobacco use
CPT/HCPCS: 74022; 80048; 80076; 83690; 85025; 96360; 96361; 99283

== ENCOUNTER → 2018-10-11 | Outpatient (CLI) | payer MEDICARE, SELFPAY ==
[2018-09-20 14:51] VITALS: BMI 32.0
[2018-10-11 17:27] LABS: Absolute Neutrophil Count 4.1 X10^3/uL (2.0-7.7); Basophil# 0.02 X10^3/uL; Basophil% 0.3 % (0-1); Eosinophil# 0.18 X10^3/uL; Eosinophils% 2.7 % (0-5); Hematocrit 47.3 % (40-54); Hemoglobin 15.8 g/dl (13.0-16.5); Lymphocyte % 26.7 % (19-41); Mean Corp Hgb Conc 33.4 g/gl (32-36); Mean Corpuscular Hgb 31.3 pg (27.0-32.0); Mean Corpuscular Volume 93.8 fL (80-94); Mean Platelet Vol. 10.5 fl (6.2-12.0); Monocyte# 0.59 X10^3/uL; Monocyte% 8.8 % (0-10); Neutrophil # 4.11 X10^3/uL (2.7-7.7); Neutrophil % 61.1 % (47-70); Platelet Count 152 K/mm3 (150-450); RBC Distribution Width CV 14.2 % (11.6-14.6); RBC Distribution Width SD 46.9 fl (35.1-43.9); Red Blood Count 5.04 M/mm3 (4.6-6.2); White Blood Count 6.7 K/mm3 (4.4-11.0)
[2018-10-11 17:33] LABS: POSITIVE COUNT NO; POSITIVE DIFFERENTIAL NO; POSITIVE MORPHOLOGY NO
[2018-10-11 17:53] LABS: Hemoglobin A1c 8.3 % (4.2-6.3)
[2018-10-11 18:02] LABS: ALB/GLOB Ratio 0.8 RATIO (0.9-2.4); AST(SGOT) 16 U/L (15-37); Alanine Aminotransfer ALT/SGPT 22 U/L (16-61); Albumin, Serum 3.3 g/dL (3.2-5.0); Alkaline Phosphatase 72 U/L (45-117); Anion Gap 7 (5-15); BUN 35 mg/dL (7-18); BUN/Creat Ratio 18.7 RATIO (10-20); Chloride 103 mmol/L (98-107); Creatinine, Serum 1.87 mg/dL (0.70-1.30); EST Glomerular Filtration Rate 38 mL/min (>60); Est Glom Filt Rate - Afr Amer 46 mL/min (>60); Globulin 4.1 g/dL (2.2-4.2); Glucose 335 mg/dL (74-106); Protein, Total 7.4 g/dL (6.4-8.2); Sodium Level 137 mmol/L (136-145); Thyroid Stim Hormone (TSH) 0.76 uIU/mL (0.358-3.74); Vitamin B12 380 pg/mL (211-911)
[2018-10-11 18:11] LABS: Uric Acid 9.2 mg/dL (3.5-7.2)
== END | disposition home or self-care (01) ==
LOC: MFPLAB 15:49
PROVIDERS: Nurse Practitioner Family; Family Provider Family Medicine; PCP Family Medicine; Visit Provider Family Medicine
DX: E11.49 Type 2 diabetes mellitus with other diabetic neurological complication (principal); M25.471 Effusion, right ankle
CPT/HCPCS: 36415; 80053; 82607; 82746; 83036; 84443; 84550; 85025

== ENCOUNTER → 2018-10-18 | Outpatient (CLI) | payer MEDICARE, SELFPAY ==
[2018-09-20 14:51] VITALS: BMI 32.0
--- NOTE | 2018-10-18 15:32 | RAD_ITS ---
STUDY: X-RAY - RIGHT FOOT CLINICAL: Male, 72 years old. Lateral foot pain TECHNIQUE: 3 view(s) of the foot. COMPARISON: None. FINDINGS: Normal talus, calcaneus, and tarsal bones. Normal visualized subtalar, talonavicular, calcaneocuboid, tarsal and tarsometatarsal articulations. Normal metatarsi. Normal metatarsophalangeal joint of the great toe. Normal tibial and fibular sesamoid bones. Normal interphalangeal joint of the great toe. Normal phalanges of the great toe. Normal second through fifth metatarsophalangeal joints. Normal interphalangeal joints and phalanges of the lesser toes. The soft tissue structures are unremarkable. RAD/Foot min 3 Views IMPRESSION: Normal x-ray examination of the foot. Electronically Signed: Guevara Crowder MD at 16:22 EDT , Service support ,
== END | disposition home or self-care (01) ==
LOC: MTRAD 15:31
PROVIDERS: Family Provider Family Medicine; PCP Family Medicine; Referring Provider Family Medicine; Visit Provider Family Medicine
DX: M79.671 Pain in right foot (principal)
CPT/HCPCS: 73630

== ENCOUNTER 2018-10-25 05:40 | Day surgery (SDC) | payer MEDICARE, SELFPAY ==
--- NOTE | 2018-08-16 01:52 | HP_ITS ---
HPI HPI History of Present Illness Surgical H&P: No Details: HPI Chief Complaint: Routine f/u Details: Mr. Sousa is a very pleasant 72-year-old diabetic gentleman with a history of hypertension, hypercholesterolemia, coronary artery disease status post previous inferior wall myocardial infarction. Patient had been seen at [facility] by Dr. Fagan for ventricular tachycardia and ventricular fibrillation in April 2012. That time he presented with cardiac arrest requiring several shocks. He was emergently transferred [facility] where he underwent emergent heart catheterization which demonstrated an occluded right coronary artery and a 50% stenosis of his left circumflex. That time his EF was found to be 35% and he underwent AICD placement. Patient underwent unsuccessful angioplasty of his occluded RCA. No attempts were made to correct his left circumflex. Patient had repeat presentation in August 2012 with recurrent AICD shocks. He was admitted to [facility] for sotalol loading, and was then subsequently taken off of sotalol. In October 2012 the patient had an EP study for recurrent ventricular tachycardia but this was noninducible. At that time his sotalol was discontinued. Patient was recently admitted to [facility] on 01/21/16 with symptomatic nonsustained ventricular tachycardia. He was started on amiodarone drip and underwent a repeat left heart catheterization by myself. This demonstrated previously noted occluded RCA with adequate left to right collaterals. He had nonobstructive disease of his LAD and left circumflex and no invention was recommended at that time. Patient was transitioned off of IV amiodarone and switched to by mouth amiodarone and is now here for follow-up. His EKG demonstrated normal sinus rhythm with old inferior/posterior wall myocardial infarction. He has had no subsequent V. tach or defibrillator discharges since his discharge. About a year ago the patient developed shortness of breath and worsening lower extremity edema. His PCP increase his Lasix from 20 mg a day to 40 mg by mouth twice a day. He did not provide supplementation for potassium and ordered a repeat his BMP according to the patient. Since then his edema has gotten better and his shortness of breath has completely resolved. In addition we have taken him off his amiodarone as he had an allergy to it. He is now here in follow-up. The notes to me, on 06/05/2018 the patient was brought to [facility] ER for tachycardia diaphoresis, numbness in his left arm. He was found to be in a wide-complex tachycardia at a rate around 156 bpm and unfortunately failed 3 DC cardioversions, immediately returning to monomorphic ventricular tachycardia. Patient was transferred [facility] where his V. tach was confirmed by pacemaker/defibrillator interrogation. He was given a single 100 mg bolus of lidocaine which terminated his wide-complex tachycardia. According to the patient he underwent another attempted ablation but they were unable to induce his ventricular tachycardia. His Coreg was increased, and he was subsequently sent home. An echocardiogram dated 06/03/2018 showed an EF of 47% with inferior basal posterior hypokinesis. According the patient he underwent a left heart catheterization as well however I do not have those reports. In any case no additional stents were performed. From a cardiac standpoint he denies any exertional angina, chest pain, shortness of breath or dyspnea on exertion. Unfortunately he continues to smoke about one pack cigarettes per day. He is taking and tolerating his medicines well. He denies any defibrillator discharges, lower extremity edema, chest pain or angina. He denies any palpitations or diaphoresis. In our office today his blood pressure is 124/60 and pulse is 68 and regular. Physical exam demonstrates clear lungs bilaterally, regular rate and rhythm, normal S1/S2. No S3 or S4. He has no edema. His lipids as of 01/21/16 showed an HDL of 34 and LDL of 52. Lipids from 06/30/17 showed LDL of 52 and HDL 37. EKG previously demonstrates normal sinus rhythm, old inferior/posterior wall myocardial infarction, QT corrected 430 milliseconds. Echocardiogram dated 01/21/16 demonstrates an EF of 50-55% with old inferior/posterior wall hypokinesis. PFTs dated 01/31/16 are essentially normal. TSH from 06/30/17 is 3.93 and free T4 is 1.03. His lipids from 06/30/17 show an LDL of 52 and HDL of 37. 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: No Is patient in pain?: No Allergies amiodarone Adverse Reaction (Severe, Verified 08/16/18 13:36) significant effect on lung function per PFT 09/19/17 Medications Aspirin [Adult Low Dose Aspirin EC] 81 mg PO DAILY 01/20/16 [History Confirmed 07/26/18] Losartan Potassium [Cozaar] 25 mg PO DAILY 01/20/16 [History Confirmed 07/26/18] Magnesium Oxide [Mag-Ox 400] 400 mg PO DAILY 01/20/16 [History Confirmed 07/26/18] P-Ephed HCl/Fexofenadine HCl [Jacquelin-D 24 Hour Tablet] 1 tab.sr PO DAILY 01/20/16 [History Confirmed 08/16/18] Pravastatin [Pravachol] 80 mg PO QHS 01/20/16 [History Confirmed 07/26/18] levothyroxine 100 mcg capsule 100 mcg PO QDAY 08/20/17 [History Confirmed 07/26/18] liraglutide 0.6 mg/0.1 mL (18 mg/3 mL) subcutaneous pen injector 1.8 mg SC QDAY 08/20/17 [History Confirmed 07/26/18] pioglitazone 15 mg tablet 15 mg PO QDAY 08/20/17 [History Confirmed 07/26/18] fluticasone propionate 50 mcg/actuation nasal spray,suspension 2 spray INTRANASAL DAILY 03/12/18 [History Confirmed 07/26/18] Insulin Aspart [Novolog Flexpen (BKC)] 50 units SUBCUT TIDCM 06/03/18 [History Confirmed 07/26/18] carvedilol 12.5 mg tablet 12.5 mg PO BID 07/26/18 [History Confirmed 07/26/18] furosemide 40 mg tablet 40 mg PO DAILY tab 07/26/18 [History Confirmed 07/26/18] insulin glargine (U- 100) 100 unit/mL subcutaneous solution 32 unit SC BID ml 07/26/18 [History Confirmed 07/26/18] [facility] Medical History Atherosclerosis of coronary artery of [place] heart without angina pectoris (Chronic) Nicotine dependence (Chronic) Ischemic cardiomyopathy (Chronic) Old myocardial infarction (Chronic) Hyperlipidemia (Chronic) Hypertension (Chronic) Obesity (Chronic) Hypothyroidism (Chronic) Left ventricular aneurysm (Chronic) Non-sustained ventricular tachycardia (Chronic) Solitary kidney (Chronic) Type 2 diabetes mellitus without complications (Chronic) Ventricular fibrillation (Resolved) Surgical History Presence of automatic implantable cardioverter-defibrillator (Chronic) History of electrophysiologic study (Chronic ~10/2012) History of left heart catheterization (Chronic ~01/21/16) Social History Smoking Status: Current every day smoker ROS Const Const: Positive for other (In flown to [place] for tachy, DCCV didn't work: had lidocaine. ); negative for fatigue, weakness, body ache, fever(s), headache(s), chills, frequent falls, night sweats, daytime sleepiness, difficulty sleeping, excessive sweating, weight gain, weight loss, increased appetite, poor appetite or anorexia Eyes Eyes: Negative for blind spots, loss of peripheral vision, transient loss of vision, blurry vision, change in vision, double vision, floaters, tunnel vision or other ENT ENT: Negative for headache(s), dizziness, hearing loss, tinnitus, Nosebleed/epistaxis, balance problems, post nasal drip, lip swelling, tongue swelling, bleeding gums, hoarseness, neck pain, dry mouth or other Cardio Chest Pain: No Palpitations: No (No tachycardia since hospitalized in May. Coreg was increased to 12.5 bid.) Edema: None Muscle aches with walking: None Resp Respiratory: Positive for Cough (productive yellow sputum.) and other (Has had a URI since out of hospital); negative for SOB with activity, SOB at rest, SOB orthopnea\SOB lying down, Coughing up blood/hemoptysis, chest congestion, pain on inspiration, snoring, stridor, wheezing, crackles or paroxysmal nocturnal dyspnea GI GI: Negative nausea, vomiting, heartburn, constipation, belching, bloating, cramping, vomiting blood/hematemesis, bright, red blood in stools, black,tarry stools, loose stools, Difficulty Swallowing or other : Negative for hematuria, frequent nighttime urination/ nocturia, erectile dysfunction or abnormal vaginal bleeding Musc Musc: Negative for muscle aches/ myalgia, muscle weakness, joint pain or balance problems Skin Skin: Negative redness, non-healing lesions, rash, unusual bruising, skin ulcer, wounds, jaundice or other Neuro Neuro: Negative for dizziness, lightheadedness, near syncope, syncope, orthostatic symptoms, frequent falls, headache(s), weakness, confusion, memory loss, restless legs, blurry vision, double vision, vertigo, seizures, lack of coordination or other Fran Hematologic/Lymphatic: Negative for easy bleeding, easy bruising, enlarged lymph nodes or other Endo Endo: Negative for fatigue, cold intolerance, heat intolerance, excessive sweating, flushing, increased thirst/drinking, increased hunger, hair loss, hair growth or other Psych Psych: Negative for anxiety, depression, thoughts of harming anyone, thoughts of harming yourself, visual hallucinations, panic attacks or audible hallucinations Allergy Allergy/Immunology: Negative for throat swelling, Negative for tongue swelling, Negative for hives, Negative for rash, Negative for lip swelling Cardiology Exam Const Appearance: cooperative, healthy appearing and no acute distress Nutritional Appearance: well nourished Orientation: alert, oriented x3 and oriented to person Head Head: normal to inspection, normocephalic and atraumatic Nose: external nose normal Face and Sinus: face symmetric Mouth: oral mucosae normal Eyes General: appearance normal, both eyes and all related structures Eyelids: eyelids normal Conjunctivae: conjunctivae normal Pupils: PERRL and normal by confrontation EOM: EOM intact bilaterally Neck Neck: normal visual inspection and full ROM Carotids: normal carotid upstroke Chest Chest inspection: normal inspection of the chest Auscultation: Bilateral: Clear to Auscultation Cardio Palpation: normal PMI Rate: regular rate Rhythm: regular rhythm Heart sounds: S1 normal and S2 normal GI GI: normal to inspection, no hepatosplenomegaly and bowel sounds present Neuro General: alert, awake, oriented x3, CN's II-XI intact bilaterally and moves all extremities Skin Skin: no rashes or lesions noted Extremities Pulses: Normal: Right Femoral Pulse, Left Femoral Pulse, Right Dorsalis Pedis Pulse, Left Dorsalis Pedis Pulse, Right Posterior Tibial Pulse, Left Posterior Tibial Pulse, Right Radial Pulse, Left Radial Pulse Lower Extremity Edema: None: Bilateral Psych Psychological: normal affect Assessment & Plan 1. Atherosclerosis of coronary artery of [place] heart without angina pectoris I25.10 Plan 1. Coronary artery disease: No exertional anginal symptoms at this time. Patient repeat hardly had a left heart catheterization in May 2018 followed by an attempted V. tach ablation by Dr. Herrera, but I do not have the results of of the catheterization report, if he indeed had one at all. We will request those records from [facility]. In the meantime he is asymptomatic and denies any chest pain or angina. He will continue baby aspirin, Coreg, Lasix, losartan. Orders Orders: Lipid Profile Today Liver Profile Today 2. Ischemic cardiomyopathy I25.5 Plan 2. Ischemic cardia myopathy: The patient is status post AICD placement. I had a long and thorough discussion regarding monitoring of his arrhythmias, and he wishes to proceed with returning back to for monitoring of his AICD. Should the patient have any recurrent arrhythmias that require more aggressive therapy, I would have a low threshold for referral back to Dr. Joseph or Dr. Mariee. 3. Nicotine dependence F17.200 Plan 3. Tobacco abuse: I had a long and thorough discussion regarding tobacco abuse, and strongly recommended that he discontinue all tobacco products. The patient is trying to cut down and has had some success since his last ablation procedure 4. Hyperlipidemia E78.5 Plan 4. Hyperlipidemia: His LDL and HDL cholesterol are at goal. Continue Pravachol. 5. Return office in 6 months. This note was generated using a voice recognition system and there may be incorrect words, spelling or punctuation that were not noted when reviewing the office note prior to saving. Orders Orders: Lipid Profile Today Liver Profile Today Plan Detail Follow Up 6M (Molina) Coding Level of Care Code Off vis,est,level 3 Diagnoses Atherosclerosis of coronary artery of [place] heart without angina pectoris I25.10 Ischemic cardiomyopathy I25.5 Nicotine dependence F17.200 Hyperlipidemia E78.5 Coding Level of Care Code Off vis,est,level 3 Diagnoses Atherosclerosis of coronary artery of [place] heart without angina pectoris I25.10 Ischemic cardiomyopathy I25.5 Nicotine dependence F17.200 Hyperlipidemia E78.5 Supplemental Info Supplemental Information Labs LDL Cholesterol 52 mg/dL (0-130) 06/30/17 HDL Cholesterol 37 mg/dL (40-) L 06/30/17 Triglycerides 117 mg/dL (-199) 06/30/17 VLDL Cholesterol 23 mg/dL (5-40) 06/30/17 Diagnostics Electrocardiogram 06/03/18 Echocardiogram 01/30/14 Pacemaker Check 06/02/18 Cardiac Catheterization 01/21/16 Chest X-Ray 06/03/18 Venous Doppler Study 01/02/18 Pulmonary Pulmonary Function Test 09/19/17 08/16/18 0412 <Electronically signed by Christiano Molina MD> Date Christiano Molina MD
[2018-08-27 10:01] VITALS: BMI 31.7
[2018-09-20 14:51] VITALS: BMI 32.0
[2018-10-25] VITALS (7 sets, daily range): BP systolic 71–121; BP diastolic 31–68; PULSE 65–70; RESP 14–16; TEMP 36.2–36.4; O2SAT 92–96; BMI 30.3
--- NOTE | 2018-10-25 07:00 | COLBX_PTH ---
PATIENT: PARK MARISCAL LOC: EN U#:[id number] AGE/SX: 72/M ROOM: RE10/25/[address]: Dr. Christiano Cardona MD : 1945 BED: DIS: 10/25/2018 SPEC #: [id number] RECD: 10/25/18 13:14 STATUS: ANDRÉS MARLON #: [id number] ADAM: 10/25/18 07:[address]: Christiano Cardona DEPT: SURGICAL PATHOLOGY RECD BY: Vipin Acuna ENTERED: 10/25/18 13:38 SP TYPE: COLON BX OTHR DR: Dr. Nathen Chang MD Tissues: Sigmoid colon biopsy Procedures: Surgery Specimen Level IV HEADER OPERATION: Colonoscopy PRE-OP DIAGNOSIS: Screening colonoscopy, family history of colon cancer TISSUE SUBMITTED: Sigmoid colon polyp MICROSCOPIC DIAGNOSIS Sigmoid colon polyp, polyp: Submucosal leiomyoma. SJ:marline 10/26/18 COMMENT Case has been reviewed in consultation with Dr. Gerber who concurs with the above diagnosis. IDC:AM MICROSCOPIC DESCRIPTION Slides are reviewed. GROSS DESCRIPTION Received in fixative is one container labeled with the patient's name and designated sigmoid colon polyp. The specimen consists of one irregular fragment of light multani soft tissue that measures 0.3 x 0.3 x 0.2 cm. The specimen is totally submitted in one cassette. / SJ:marline 10/25/18 TC:1 CPT: 13002
--- NOTE | 2018-10-25 07:39 | HP.PCM_ITS ---
History and Physical Date of Admission: 10/25/18 [facility] [address] [place] [address] OFFICE VISIT MR#: [id number] Acct: [id number] Name: PARK MARISCAL Rep #: [id number] : 1945 Provider: Christiano beauchamp MD Age/Sex: 72/M Location: [facility] Status: Signed Intake Vital Signs 09/20/18 Body Mass Index (BMI) 32.0 09/20/18 Height 6 ft 09/20/18 Weight: 235 lb 09/20/18 Body Mass Index (BMI) 31.8 09/20/18 Blood Pressure 119/76 09/20/18 Blood Pressure Location Rt brachial 09/20/18 Blood Pressure Position Sitting 09/20/18 Respiratory Rate 14 09/20/18 Pulse Rate 75 09/20/18 Pulse Source Monitor 09/20/18 Temperature 98.2 F 09/20/18 Temperature Source Oral 09/20/18 Pulse Ox 94 09/20/18 Oxygen Delivery Method room air Intake Visit Reasons: update H&P, discuss er visit prior to cscope Chief Complaint: Routine 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 Is patient in pain?: No Allergies amiodarone Adverse Reaction (Severe, Verified 09/20/18 14:50) significant effect on lung function per PFT 09/19/17 Medications Aspirin [Adult Low Dose Aspirin EC] 81 mg PO DAILY 01/20/16 [History Confirmed 09/20/18] Losartan Potassium [Cozaar] 25 mg PO DAILY 01/20/16 [History Confirmed 09/20/18] Magnesium Oxide [Mag-Ox 400] 400 mg PO DAILY 01/20/16 [History Confirmed 09/20/18] P-Ephed HCl/Fexofenadine HCl [Jacquelin-D 24 Hour Tablet] 1 tab.sr PO DAILY 01/20/16 [History Confirmed 09/20/18] Pravastatin [Pravachol] 80 mg PO QHS 01/20/16 [History Confirmed 09/20/18] levothyroxine 100 mcg capsule 100 mcg PO QDAY 08/20/17 [History Confirmed 09/20/18] liraglutide 0.6 mg/0.1 mL (18 mg/3 mL) subcutaneous pen injector 1.8 mg SC QDAY 08/20/17 [History Confirmed 09/20/18] pioglitazone 15 mg tablet 15 mg PO QDAY 08/20/17 [History Confirmed 09/20/18] Insulin Aspart [Novolog Flexpen (BKC)] 50 units SUBCUT TIDCM 06/03/18 [History Confirmed 09/20/18] carvedilol 12.5 mg tablet 12.5 mg PO BID 07/26/18 [History Confirmed 09/20/18] furosemide 40 mg tablet 40 mg PO DAILY tab 07/26/18 [History Confirmed 0 09/20/18] insulin glargine (U- 100) 100 unit/mL subcutaneous solution 32 unit SC BID ml 07/26/18 [History Confirmed 09/20/18] peg 3350-electrolytes 236 gram-22.74 gram-6.74 gram-5.86 gram solution 4,000 ml PO ONCE #4000 ml 09/20/18 [Rx Confirmed 09/20/18] PFSH Medical History Diabetes mellitus, type II (Chronic) Atherosclerosis of coronary artery of [place] heart without angina pectoris (Chronic) Nicotine dependence (Chronic) Ischemic cardiomyopathy (Chronic) Old myocardial infarction (Chronic) Hyperlipidemia (Chronic) Hypertension (Chronic) Obesity (Chronic) Hypothyroidism (Chronic) Left ventricular aneurysm (Chronic) Non-sustained ventricular tachycardia (Chronic) Solitary kidney (Chronic) Type 2 diabetes mellitus without complications (Chronic) Ventricular fibrillation (Resolved) Surgical History Presence of automatic implantable cardioverter-defibrillator (Chronic) History of electrophysiologic study (Chronic ~10/2012) History of left heart catheterization (Chronic ~01/21/16) Family History Father Colon cancer Social History (Updated 09/28/18 @ 12:45 by Christiano Cardona MD) Smoking Status: Current every day smoker HPI HPI HPI: PARK MARISCAL, is a 72 M who presents to the office today for HPI HPI Surgical H&P: Yes HPI: PARK MARISCAL, is a 72 M who presents to the office today for for follow- up from having his colonoscopy canceled secondary to severe abdominal cramping's. Was seen in the emergency department on 09/12/2018. He was actually scheduled to have his colonoscopy the next day and he was started on his clear liquids. He developed severe abdominal cramps that kept him up all night. He did not start his bowel prep secondary to the abdominal discomfort. He was given some Bentyl for his abdominal cramping and it subsequently went away without difficulty. X-rays show that he has small bowel ileus he was noted to have no white count his electrolytes are within normal order. He represents today for an H&P for his colonoscopy. ROS General General: No weight change, appetite, fatigue, colon cancer, breast cancer or weakness HEENT HEENT: No difficulty swallowing, eye injury, eye surgery, swollen glands or hoarseness Endo Endocrine: Yes diabetes mellitus; no thyroid disease, thyroid cancer, Hair loss, heat intolerance or cold intolerance Skin Skin: No rash or changing moles Breast Breast: No left breast lump, right breast lump, nipple discharge, breast pain, abnormal mammogram, abnormal US or breast enlargement Musc Musculoskeletal: No back problems, arthritis, rheumatoid arthritis, gout or joint pain Cardio Cardiovascular: Yes pacemaker, heart disease, high blood pressure and heart attack; no murmur, atrial fibrillation, heart stent, palpitations, shortness of breat with exertion or chest pain Psych Psychiatric: No depression, anxiety or hearing voices Resp Respiratory: No shortness of breath, No sleep apnea, Yes cough, No COPD, No asthma, No emphysema, No wheezing Gastro Gastrointestinal: No abdominal pain, No nausea or vomiting, No diarrhea, No constipation, No blood in stool, No acid reflux, Yes hemorrhoids, No ulcers, No gallbladder problem, No black,tarry stools Fran Hematologic: No blood thinners, No blood disorders, No bleeding, No anemia, No blood clots Neuro Neurologic: No weakness Exam Const General: no acute distress, well developed, well hydrated Orientation: oriented to person, oriented to place, oriented to time [facility] Head: normocephalic, atraumatic Ears: external ears normal Mouth: moist mucous membranes Eyes Sclera: sclerae normal Pupils: normal by confrontation Neck Neck: no lymphadenopathy noted Neck mass: No Thyroid: thyroid normal, symmetrical Chest Chest palpation & inspection: normal inspection of the chest Breast Palpation: No nipple discharge Resp Effort & Inspection: normal respiratory effort Auscultation: clear to auscultation bilaterally Percussion: percussion normal Cardio Rate: regular rate Rhythm: regular rhythm Heart Sounds: no murmurs GI Palpation: soft, no hepatosplenomegaly, no masses, nontender Rectal Exam: other Other: Rectal exam deferred. Extrem General: normal to inspection, no clubbing, cyanosis or edema Assessment & Plan Problems 1. Family history of colon cancer in father Z80.0 Plan I have discussed the above with the patient. I have offered the patient colonoscopy for evaluation. I have explained the risks/benefits of the procedure and described the procedure. I have discussed the risks with the patient, including but not limited to: infection, bleeding, perforation of the GI tract requiring emergency surgery, inability to complete the procedure, injury to any internal organs, complications of anesthesia, etc. - the patient understands and agrees to proceed. I have answered all the patient's questions to the patient's satisfaction and the patient has no further questions. The patient has been given instructions for the colon cleansing preparation. Medications New: peg 3350-electrolytes 236-22.74-6.74 -5.86 gram until fecal effluent is clear; do not exceed a total volume of 4000 mL 4,000 mL PO ONCE 4,000 mL 0RF Coding Level of Care Code Off vis,est,level 2 Diagnoses Family history of colon cancer in father Z80.0 09/28/18 [id number] <Electronically signed by Christiano brandt MD> Date _ Christiano Cardona MD Cosigner Signature: Date (if applicable) CC: ~
[2018-10-25 08:01] LABS: Bedside Glucose 261 mg/dL (70-110)
--- NOTE | 2018-10-25 08:02 | OP.ENDO_ITS ---
Patient Name: Tate Sousa Procedure Date: 10/25/2018 7:34 AM Date of : 1945 Age: 72 Procedure: Colonoscopy Indications: Screening in patient at increased risk: Family history of 1st-degree relative with colorectal cancer Providers: Christiano Cardona MD Medicines: See the Anesthesia note for documentation of the administered medications Patient Profile: This is a 72 year old male. Refer to note in patient chart for documentation of history and physical. Last Colonoscopy: 5 years ago. Complications: No immediate complications. Procedure: Pre-Anesthesia Assessment: - Prior to the procedure, a History and Physical was performed, and patient medications and allergies were reviewed. The patient's tolerance of previous anesthesia was also reviewed. The risks and benefits of the procedure and the sedation options and risks were discussed with the patient. All questions were answered, and informed consent was obtained. Prior Anticoagulants: The patient has taken aspirin, last dose was 7 days prior to procedure. ASA Grade Assessment: II - A patient with mild systemic disease. After reviewing the risks and benefits, the patient was deemed in satisfactory condition to undergo the procedure. After I obtained informed consent, the scope was passed under direct vision. Throughout the procedure, the patient's blood pressure, pulse, and oxygen saturations were monitored continuously. The colonoscope was introduced through the anus and advanced to the cecum, identified by appendiceal orifice and ileocecal valve. The colonoscopy was performed without difficulty. The patient tolerated the procedure well. The quality of the bowel preparation was good. Scope In: 7:42:49 AM Scope Withdrawal Time 0 hours 7 minutes 56 seconds Scope Out: 7:52:39 AM Total Procedure Duration Time 0 hours 9 minutes 50 seconds Findings: A 5 mm polyp was found in the sigmoid colon. The polyp was sessile. The polyp was removed with a hot snare. Resection and retrieval were complete. Verification of patient identification for the specimen was done by the nurse. A few small-mouthed diverticula were found in the sigmoid colon. Non-bleeding internal hemorrhoids were found during retroflexion. The hemorrhoids were mild and small. The exam was otherwise without abnormality. Impression: - One 5 mm polyp in the sigmoid colon, removed with a hot snare. Resected and retrieved. - Diverticulosis in the sigmoid colon. - Non-bleeding internal hemorrhoids. - The examination was otherwise normal. Recommendation: - Await pathology results. - Repeat colonoscopy in 3 years for surveillance. - Return to my office in 1 week. - Continue present medications. Procedure Code(s): --- Professional --- 38163, Colonoscopy, flexible; with removal of tumor(s), polyp(s), or other lesion(s) by snare technique Diagnosis Code(s): --- Professional --- Z80.0, Family history of malignant neoplasm of digestive organs D12.5, Benign neoplasm of sigmoid colon K64.8, Other hemorrhoids K57.30, Diverticulosis of large intestine without perforation or abscess without bleeding CPT copyright 2017 [employer]. All rights reserved. The codes documented in this report are preliminary and upon bowling alley floors installer review may be revised to meet current compliance requirements. MD Christiano Goetz MD 10/25/2018 8:01:35 AM This report has been signed electronically. Number of Addenda: 0 Note Initiated On: 10/25/2018 7:34 AM
== END 2018-10-25 08:52 | disposition home or self-care (01) ==
LOC: EN 05:41 → AC 05:42
PROVIDERS: Family Provider Family Medicine; PCP Family Medicine; Referring Provider Family Medicine; Visit Provider Surgery
PROC: 0DJD8ZZ Inspection of Lower Intestinal Tract, Via Natural or Artificial Opening Endoscopic (ICD-10-PCS; CPT 45378; principal; 2018-10-25 06:55)
DX: Z12.11 Encounter for screening for malignant neoplasm of colon (principal); D12.5 Benign neoplasm of sigmoid colon; K57.30 Diverticulosis of large intestine without perforation or abscess without bleeding; K64.8 Other hemorrhoids; E11.9 Type 2 diabetes mellitus without complications; I25.10 Atherosclerotic heart disease of native coronary artery without angina pectoris; I25.2 Old myocardial infarction; E78.5 Hyperlipidemia, unspecified; I10 Essential (primary) hypertension; E66.9 Obesity, unspecified; E03.9 Hypothyroidism, unspecified; F17.200 Nicotine dependence, unspecified, uncomplicated; Z68.32 Body mass index [BMI] 32.0-32.9, adult; Z80.0 Family history of malignant neoplasm of digestive organs; Z95.810 Presence of automatic (implantable) cardiac defibrillator; Z79.4 Long term (current) use of insulin; Z79.82 Long term (current) use of aspirin; Z79.899 Other long term (current) drug therapy
CPT/HCPCS: 45380; 82962; 88305; J7120

== ENCOUNTER → 2019-03-11 13:53 | Outpatient (CLI) | payer MEDICARE, SELFPAY ==
[2019-03-11 13:23] VITALS: BMI 30.6
[2019-03-11 16:33] LABS: AST(SGOT) 36 U/L (15-37); Alanine Aminotransfer ALT/SGPT 48 U/L (16-61); Albumin, Serum 3.4 g/dL (3.2-5.0); Alkaline Phosphatase 68 U/L (45-117); Bilirubin, Direct 0.14 mg/dL (0.00-0.30); Cholesterol 129 mg/dL (200); Globulin 3.9 g/dL (2.2-4.2); High Density Lipoprotein 20 mg/dL; Protein, Total 7.3 g/dL (6.4-8.2); Triglycerides 326 mg/dL; Very Low Density Lipoprotein 65 mg/dL (5-40)
== END ==
PROVIDERS: Family Provider Family Medicine; PCP Family Medicine; Referring Provider Internal Medicine Cardiovascular Disease; Visit Provider Internal Medicine Cardiovascular Disease
DX: E78.5 Hyperlipidemia, unspecified (principal); I25.10 Atherosclerotic heart disease of native coronary artery without angina pectoris
CPT/HCPCS: 36415; 80061; 80076

== ENCOUNTER → 2019-05-09 | Outpatient (CLI) | payer MEDICARE, SELFPAY ==
[2019-03-11 13:23] VITALS: BMI 30.6
[2019-05-09 12:35] LABS: Vitamin D,25 Hydroxy 11.9 ng/mL (29.95-100.01)
[2019-05-09 12:42] LABS: ALB/GLOB Ratio 0.9 RATIO (0.9-2.4); AST(SGOT) 20 U/L (15-37); Alanine Aminotransfer ALT/SGPT 23 U/L (16-61); Albumin, Serum 3.5 g/dL (3.2-5.0); Alkaline Phosphatase 63 U/L (45-117); Anion Gap 2 (5-15); BUN 30 mg/dL (7-18); BUN/Creat Ratio 16.1 RATIO (10-20); Calcium,Total 9.1 mg/dL (8.5-10.1); Chloride 107 mmol/L (98-107); Creatinine, Serum 1.86 mg/dL (0.70-1.30); EST Glomerular Filtration Rate 38 mL/min (>60); Est Glom Filt Rate - Afr Amer 46 mL/min (>60); Globulin 3.8 g/dL (2.2-4.2); Glucose 241 mg/dL (74-106); Potassium 4.6 mmol/L (3.5-5.1); Protein, Total 7.3 g/dL (6.4-8.2); Sodium Level 137 mmol/L (136-145); Thyroid Stim Hormone (TSH) 1.02 uIU/mL (0.358-3.74); Uric Acid 10.2 mg/dL (3.5-7.2)
== END | disposition home or self-care (01) ==
LOC: MFPLAB 10:11
PROVIDERS: PCP Family Medicine; Referring Provider Family Medicine; Visit Provider Family Medicine
DX: E11.49 Type 2 diabetes mellitus with other diabetic neurological complication (principal); E11.22 Type 2 diabetes mellitus with diabetic chronic kidney disease; N18.3 Chronic kidney disease, stage 3 (moderate); E79.0 Hyperuricemia without signs of inflammatory arthritis and tophaceous disease
CPT/HCPCS: 36415; 80053; 82306; 84443; 84550

== ENCOUNTER → 2019-08-15 | Outpatient (CLI) | payer MEDICARE, SELFPAY ==
[2019-03-11 13:23] VITALS: BMI 30.6
[2019-08-15 12:14] LABS: Absolute Lymphocyte Count 1.78 X10^3/uL (0.83-4.51); Absolute Neutrophil Count 5.9 X10^3/uL (2.0-7.7); Basophil# 0.04 X10^3/uL; Basophil% 0.5 % (0-1); Eosinophil# 0.18 X10^3/uL; Eosinophils% 2.1 % (0-5); Hematocrit 48.4 % (40-54); Hemoglobin 16.4 g/dL (13.0-16.5); Lymphocyte # 1.78 X10^3/ul (4.0); Lymphocyte % 20.6 % (19-41); Mean Corp Hgb Conc 33.9 g/dL (32-36); Mean Corpuscular Hgb 32.2 pg (27.0-32.0); Mean Corpuscular Volume 95.1 fL (80-94); Mean Platelet Vol. 10.7 fl (6.2-12.0); Monocyte# 0.66 X10^3/uL; Monocyte% 7.6 % (0-10); NRBC Flagged by Analyzer 0 % (0-5); Neutrophil # 5.91 X10^3/uL (2.7-7.7); Neutrophil % 68.5 % (47-70); Platelet Count 153 K/mm3 (150-450); RBC Distribution Width CV 13.6 % (11.6-14.6); RBC Distribution Width SD 47.8 fl (35.1-43.9); Red Blood Count 5.09 M/mm3 (4.6-6.2); White Blood Count 8.6 K/mm3 (4.4-11.0)
[2019-08-15 12:33] LABS: Vitamin D,25 Hydroxy 41.3 ng/mL
[2019-08-15 12:36] LABS: ALB/GLOB Ratio 0.9 RATIO (0.9-2.4); AST(SGOT) 16 U/L (15-37); Alanine Aminotransfer ALT/SGPT 23 U/L (16-61); Albumin, Serum 3.3 g/dL (3.2-5.0); Alkaline Phosphatase 71 U/L (45-117); Anion Gap 6 (5-15); BUN 38 mg/dL (7-18); BUN/Creat Ratio 20.7 RATIO (10-20); Calcium,Total 9.2 mg/dL (8.5-10.1); Chloride 106 mmol/L (98-107); Creatinine, Serum 1.84 mg/dL (0.70-1.30); EST Glomerular Filtration Rate 38 mL/min (>60); Est Glom Filt Rate - Afr Amer 47 mL/min (>60); Globulin 3.8 g/dL (2.2-4.2); Glucose 277 mg/dL (74-106); Potassium 4.3 mmol/L (3.5-5.1); Protein, Total 7.1 g/dL (6.4-8.2); Sodium Level 136 mmol/L (136-145); Thyroid Stim Hormone (TSH) 0.71 uIU/mL (0.358-3.74)
[2019-08-16 21:28] LABS: C-Peptide 2.8 ng/mL (1.1-4.4)
== END | disposition home or self-care (01) ==
LOC: MFPLAB 10:29
PROVIDERS: PCP Family Medicine; Visit Provider Family Medicine
DX: D53.1 Other megaloblastic anemias, not elsewhere classified (principal); E11.49 Type 2 diabetes mellitus with other diabetic neurological complication; E11.22 Type 2 diabetes mellitus with diabetic chronic kidney disease; N18.3 Chronic kidney disease, stage 3 (moderate)
CPT/HCPCS: 36415; 80053; 82306; 84443; 84681; 85025

== ENCOUNTER → 2019-11-14 10:33 | Outpatient (CLI) | payer MEDICARE, SELFPAY ==
[2019-03-11 13:23] VITALS: BMI 30.6
[2019-11-14 12:55] LABS: Absolute Neutrophil Count 5.2 X10^3/uL (2.0-7.7); Basophil# 0.03 X10^3/uL; Basophil% 0.4 % (0-1); Eosinophil# 0.14 X10^3/uL; Eosinophils% 1.8 % (0-5); Hematocrit 49.7 % (40-54); Hemoglobin 16.5 g/dL (13.0-16.5); Lymphocyte % 22.1 % (19-41); Mean Corp Hgb Conc 33.2 g/dL (32-36); Mean Corpuscular Hgb 32.2 pg (27.0-32.0); Mean Corpuscular Volume 96.9 fL (80-94); Mean Platelet Vol. 10.8 fl (6.2-12.0); Monocyte% 7.8 % (0-10); NRBC Flagged by Analyzer 0 % (0-5); Neutrophil # 5.17 X10^3/uL (2.7-7.7); Neutrophil % 67.2 % (47-70); Platelet Count 146 K/mm3 (150-450); RBC Distribution Width CV 13.7 % (11.6-14.6); RBC Distribution Width SD 49.9 fl (35.1-43.9); Red Blood Count 5.13 M/mm3 (4.6-6.2); White Blood Count 7.7 K/mm3 (4.4-11.0)
[2019-11-14 13:12] LABS: ALB/GLOB Ratio 0.9 RATIO (0.9-2.4); AST(SGOT) 16 U/L (15-37); Alanine Aminotransfer ALT/SGPT 22 U/L (16-61); Albumin, Serum 3.3 g/dL (3.2-5.0); Alkaline Phosphatase 71 U/L (45-117); Anion Gap 6 (5-15); BUN 43 mg/dL (7-18); BUN/Creat Ratio 22.1 RATIO (10-20); Calcium,Total 9.1 mg/dL (8.5-10.1); Chloride 99 mmol/L (98-107); Cholesterol 144 mg/dL (200); Creatinine, Serum 1.95 mg/dL (0.70-1.30); EST Glomerular Filtration Rate 36 mL/min (>60); Est Glom Filt Rate - Afr Amer 44 mL/min (>60); Globulin 3.8 g/dL (2.2-4.2); Glucose 426 mg/dL (74-106); High Density Lipoprotein 39 mg/dL; Potassium 5.1 mmol/L (3.5-5.1); Protein, Total 7.1 g/dL (6.4-8.2); Sodium Level 133 mmol/L (136-145); Thyroid Stim Hormone (TSH) 0.92 uIU/mL (0.358-3.74); Triglycerides 195 mg/dL; Very Low Density Lipoprotein 39 mg/dL (5-40); Vitamin D,25 Hydroxy 44.6 ng/mL
== END ==
PROVIDERS: PCP Family Medicine; Visit Provider Family Medicine
DX: E03.9 Hypothyroidism, unspecified (principal); J44.9 Chronic obstructive pulmonary disease, unspecified; D53.1 Other megaloblastic anemias, not elsewhere classified; E11.65 Type 2 diabetes mellitus with hyperglycemia; E11.49 Type 2 diabetes mellitus with other diabetic neurological complication
CPT/HCPCS: 36415; 80053; 80061; 82306; 82746; 84443; 85025

== ENCOUNTER → 2019-12-14 | Outpatient (CLI) | payer MEDICARE, SELFPAY ==
[2019-12-06 10:18] VITALS: BMI 31.7
== END | disposition home or self-care (01) ==
LOC: MTDU 11:06
PROVIDERS: PCP Family Medicine; Referring Provider Nurse Practitioner Family; Visit Provider Nurse Practitioner Family
DX: Z45.02 Encounter for adjustment and management of automatic implantable cardiac defibrillator (principal); I25.5 Ischemic cardiomyopathy; I47.2 Ventricular tachycardia; I49.01 Ventricular fibrillation; Z95.810 Presence of automatic (implantable) cardiac defibrillator
CPT/HCPCS: 87635; C9803; U0003

== ENCOUNTER 2019-12-22 09:12 | Day surgery (SDC) | payer MEDICARE, SELFPAY ==
[2019-03-11 13:23] VITALS: BMI 30.6
[2019-12-06 10:18] VITALS: BMI 31.7
[2019-12-06 11:09] LABS: Bacteria 0 SEEN /hpf (None Seen); Mucous, Urine 0 SEEN /hpf (<or=2+); Red Blood Cells-Urine 0 SEEN /hpf (0-5); Squamous Epithelial Cells - UA 0 SEEN /hpf (0-5); White Blood Cells 0 SEEN /hpf (0-5)
--- NOTE | 2019-12-06 11:15 | HP_ITS ---
HPI HPI History of Present Illness Surgical H&P: Yes Details: This is a 73-year-old male who presents to the office today for a cardiovascular outpatient follow-up. He has a history of ventricular tachycardia and ventricular fibrillation in April 2012, status post AICD placement in April 2012, hypertension, hyperlipidemia, coronary artery disease status post inferior wall myocardial infarction with unsuccessful angioplasty of his occluded RCA in April 2012. He has continued to have multiple ventricular tachycardia episodes since ICD placement. Patient presents today for an updated H&P as he will be undergoing generator change with Dr. Gillespie on 12/22/2019. Pt denies chest, arm, jaw, or neck discomfort. His exercise tolerance is stable. Pt denies symptoms of CHF, palpitations, lightheadedness, dizziness, near syncopal or syncopal episodes. Pt denies edema or claudication issues. Pt. denies orthopnea, PND, fever, chills, chronic cough, blood in urine, blood in stool, myalgia, or unexplainable fatigue. He denies urinary symptoms to suggest UTI. Intake Vital Signs 12/06/19 Height 6 ft 12/06/19 Weight: 234 lb 12/06/19 BMI 31.7 12/06/19 BP 111/70 12/06/19 Blood Pressure Location Lt brachial 12/06/19 Position Sitting 12/06/19 Respiration 18 12/06/19 Pulse 70 12/06/19 Pulse Source Monitor 12/06/19 Pulse Oximetry (%) 93 Intake Visit Reasons: UPDATE H&P, TITO 12-21 (WAQAS 10:00) Home Security Alarm Installer Required: No Accompanied by: none Is patient in pain?: No Allergies amiodarone Adverse Reaction (Severe, Verified 12/06/19 10:19) significant effect on lung function per PFT 09/19/17 Medications Aspirin [Adult Low Dose Aspirin EC] 81 mg PO DAILY 01/20/16 [History Confirmed 12/06/19] Losartan Potassium [Cozaar] 25 mg PO DAILY 01/20/16 [History Confirmed 12/06/19] Magnesium Oxide [Mag-Ox 400] 400 mg PO DAILY 01/20/16 [History Confirmed 12/06/19] P-Ephed HCl/Fexofenadine HCl [Jacquelin-D 24 Hour Tablet] 1 tab.sr PO DAILY 01/20/16 [History Confirmed 12/06/19] Pravastatin [Pravachol] 80 mg PO QHS 01/20/16 [History Confirmed 12/06/19] levothyroxine 100 mcg capsule 100 mcg PO QDAY 08/20/17 [History Confirmed 12/06/19] liraglutide 0.6 mg/0.1 mL (18 mg/3 mL) subcutaneous pen injector 1.8 mg SC QDAY 08/20/17 [History Confirmed 12/06/19] pioglitazone 15 mg tablet 15 mg PO QDAY 08/20/17 [History Confirmed 12/06/19] Insulin Aspart [Novolog Flexpen ([facility])] 50 units SUBCUT TIDCM 06/03/18 [History Confirmed 12/06/19] carvedilol 12.5 mg tablet 12.5 mg PO BID 07/26/18 [History Confirmed 12/06/19] furosemide 40 mg tablet 40 mg PO DAILY tab 07/26/18 [History Confirmed 12/06/19] Insulin Glargine [Lantus ([facility])] 26 units SUBCUT BID 10/20/18 [History Confirmed 12/06/19] [facility] Medical History (Updated 12/06/19 @ 11:14 by NP. Dequan Nettles, [employer]-C) Implantable cardioverter-defibrillator (ICD) at end of battery life (Chronic) Non-sustained ventricular tachycardia (Chronic) Left ventricular aneurysm (Chronic) Ventricular fibrillation (Resolved) Type 2 diabetes mellitus without complications (Chronic) Hypothyroidism (Chronic) Solitary kidney (Chronic) Diabetes mellitus, type II (Chronic) Atherosclerosis of coronary artery of [place] heart without angina pectoris (Chronic) Nicotine dependence (Chronic) Ischemic cardiomyopathy (Chronic) Old myocardial infarction (Chronic) Hyperlipidemia (Chronic) Hypertension (Chronic) Obesity (Chronic) Surgical History Hx of colonoscopy (Acute) History of left heart catheterization (Chronic ~01/21/16) History of electrophysiologic study (Chronic ~10/2012) Presence of automatic implantable cardioverter-defibrillator (Chronic) Social History (Updated 12/06/19 @ 11:15 by NP. Dequan Nettles, CHILO-C) Smoking Status: Current every day smoker ROS Const Const: Negative for fatigue, weakness, body ache, fever(s) or chills ENT ENT: Negative for dizziness Cardio Chest Pain: No Palpitations: No Edema: None Muscle aches with walking: None Resp Respiratory: Negative for SOB with activity, SOB at rest, SOB orthopnea\SOB lying down or paroxysmal nocturnal dyspnea GI GI: Negative nausea, vomiting blood/hematemesis, bright, red blood in stools or black,tarry stools : Negative for hematuria or frequent nighttime urination/ nocturia Musc Musc: Negative for muscle aches/ myalgia Skin Skin: Negative non-healing lesions or rash Neuro Neuro: Negative for dizziness, lightheadedness, near syncope, syncope, orthostatic symptoms or weakness Endo Endo: Negative for fatigue Allergy Allergy/Immunology: Negative for rash Cardiology Exam Const Appearance: cooperative, healthy appearing, comfortable and no acute distress Nutritional Appearance: well nourished and obese Orientation: alert, awake and oriented x3 Head Head: normal to inspection Ears: hearing grossly normal bilaterally Nose: external nose normal Face and Sinus: face symmetric Mouth: oral mucosae normal Eyes General: appearance normal, both eyes and all related structures Eyelids: eyelids normal EOM: EOM intact bilaterally Neck Neck: normal visual inspection and no JVD Carotids: normal carotid upstroke Chest Chest inspection: normal inspection of the chest, symmetric chest movement and normal respiratory effort; negative cough Auscultation: Bilateral: Clear to Auscultation Cardio Palpation: normal PMI Rate: regular rate Rhythm: regular rhythm Heart sounds: S1 normal and S2 normal; negative rub, gallop or murmur GI GI: normal to inspection and obese Neuro General: alert, awake, oriented x3 and CN's II-XI intact bilaterally Skin Skin: no rashes or lesions noted Extremities Pulses: Normal: Right Posterior Tibial Pulse, Left Posterior Tibial Pulse, Right Radial Pulse, Left Radial Pulse Lower Extremity Edema: None: Bilateral Psych Psychological: normal affect Assessment & Plan 1. Implantable cardioverter-defibrillator (ICD) at end of battery life Z45.02 Plan Remote dual-chamber ICD evaluation from 10/26/2019 showed no VT/VF episodes and no AT/AF episodes since 06/29/2019. Ventricular paced less than 1%. Atrial paced 25%. Estimate battery life 3.4 months. Patient was asked undergo laboratory and microbiology evaluation. He will proceed with generator change with Dr. An. He will present to pacemaker clinic on 01/03/2020 to evaluate further. Orders Orders: 12 Lead EKG performed by [facility] Today Basic Metabolic Profile (BMP) Today CBC-Complete Blood Cnt No Diff Today CORONAVIRUS 19, LEANNE SENDOUT Today Urinalysis, Complete Today 2. Non-sustained ventricular tachycardia I47.2 Plan His most recent pacemaker evaluation from October did not reveal any VT or VF episodes. He denies any defibrillator discharges. At this time, he will continue current medical therapy, which includes carvedilol. We will continue to monitor. Orders Orders: Basic Metabolic Profile (BMP) Today CBC-Complete Blood Cnt No Diff Today CORONAVIRUS 19, LEANNE SENDOUT Today Prothrombin Time w/INR Today Urinalysis, Complete Today 3. Atherosclerosis of [place] coronary artery of [place] heart without angina pectoris I25.10 Plan As noted above, patient did have unsuccessful treatment to occluded RCA in 2012. His last stress test in 2016 was negative for ischemia. It was recommended after last office visit to repeat echocardiogram and stress echocardiogram. However, due to financial concerns, he did not proceed with such test. He denies any exertional symptoms today. At this time, he will continue current medical therapy and we will continue to monitor. He will continue risk factor and lifestyle modification. 4. Ischemic cardiomyopathy I25.5 Plan His most recent echocardiogram on 06/03/2018 showed an ejection fraction of 47%. He appears to be in [place] Heart Association functional class I. He denies any symptoms of congestive heart failure. He has not appear to be in an overt fluid volume overload state. He will continue current medical therapy which includes carvedilol, Lasix, and losartan. We will continue to monitor. Orders Orders: Basic Metabolic Profile (BMP) Today CBC-Complete Blood Cnt No Diff Today CORONAVIRUS 19, LEANNE SENDOUT Today Prothrombin Time w/INR Today Urinalysis, Complete Today 5. Essential hypertension I10 Plan Patient's blood pressure is well-controlled. We will continue to monitor. We will not make any medication regimen changes. 6. Hyperlipidemia, unspecified hyperlipidemia type E78.5 Plan Lipid panel from 11/14/2019 showed cholesterol: 144, HDL: 39, LDL: 66, and triglycerides: 195. He will continue current statin medication. Plan Detail Other Orders Orders: Basic Metabolic Profile (BMP) Today I49.01, Z95.810, Z98.890 CBC-Complete Blood Cnt No Diff Today I49.01, Z95.810, Z98.890 CORONAVIRUS 19, LEANNE SENDOUT Today I49.01, Z95.810 Prothrombin Time w/INR Today I49.01, Z95.810, Z98.890 Urinalysis, Complete Today I49.01, Z95.810, Z98.890 Additional Comments Thank you for allowing us to participate in the patients plan of care, if you have any questions please do not hesitate to call. This note was generated using a voice recognition system and there may be incorrect words, spelling or punctuation that were not noted when reviewing the office note prior to saving. Follow Up 6 Months ([employer]/PA) 12 Months (MEDICAL TRANSCRIPTION RADIOLOGY ([facility] Pt)) Coding Level of Care Code Off vis,est,level 3 Diagnoses Implantable cardioverter-defibrillator (ICD) at end of battery life Z45.02 Non-sustained ventricular tachycardia I47.2 Atherosclerosis of [place] coronary artery of [place] heart without angina pectoris I25.10 ??Coronary Disease-Associated Artery/Lesion type: [place] artery Ischemic cardiomyopathy I25.5 Essential hypertension I10 ??Hypertension type: essential hypertension Hyperlipidemia, unspecified hyperlipidemia type E78.5 ??Hyperlipidemia type: unspecified Coding Level of Care Code Off vis,est,level 3 Diagnoses Implantable cardioverter-defibrillator (ICD) at end of battery life Z45.02 Non-sustained ventricular tachycardia I47.2 Atherosclerosis of [place] coronary artery of [place] heart without angina pectoris I25.10 ??Coronary Disease-Associated Artery/Lesion type: [place] artery Ischemic cardiomyopathy I25.5 Essential hypertension I10 ??Hypertension type: essential hypertension Hyperlipidemia, unspecified hyperlipidemia type E78.5 ??Hyperlipidemia type: unspecified Supplemental Info Supplemental Information Echocardiogram from 06/03/2018: Conclusions Summary: 1. Left ventricle: The cavity size is near upper normal. Wall thickness is moderately increased. Systolic function is mildly decreased by the biplane method of disks. The estimated ejection fraction is 47%. Akinesis with wall thinning of the basal inferolateral (posterior) myocardium; appears aneurysmal. Akinesis and thinning of the basal inferior myocardium; appears aneurysmal. Doppler parameters are consistent with abnormal left ventricular relaxation (grade 1 diastolic dysfunction). 2. No significant valve disease. Stress echocardiogram from 03/04/2017: Interpretation The estimated ejection fraction is 50%. Normal adequate dobutamine echocardiogram. Negative for ischemia by EKG and echocardiographic criteria. Rare PVC noted during infusion. No anginal symptoms noted during infusion. Patient had baseline inferior posterior aneurysm but had excellent contractility of all other jenkins during infusion. Patient telemetry procedure well. Appropriate blood pressure response to infusion of dobutamine. Decrease sensitivity due to poor echo windows and need for Definity contrast. Labs LDL Cholesterol 66 mg/dL (0-130) 11/14/19 HDL Cholesterol 39 mg/dL (40-) L 11/14/19 Triglycerides 195 mg/dL (-199) 11/14/19 VLDL Cholesterol 39 mg/dL (5-40) 11/14/19 Diagnostics Electrocardiogram 12/06/19 Echocardiogram 01/30/14 Pacemaker Check 12/01/19 Cardiac Catheterization 01/21/16 Chest X-Ray 06/03/18 Venous Doppler Study 01/02/18 Pulmonary Pulmonary Function Test 09/19/17 COVID (Procedure Consent) Procedure Criteria Procedure Criteria: Yes Elective The surgeon/proceduralist and patient have discussed in detail the risk of exposure to and/or potential harm posed by the COVID-19 virus with having a surgery/procedure at this time versus the risk of? delaying the surgery/procedure. It is not possible to know either the risk of delaying the surgery or procedure or chance of getting an infection with perfect accuracy, but a joint decision was made between the patient and the surgeon/proceduralist ?to proceed at this time with the scheduled surgery/procedure as indicated on the consent form. 12/06/19 1115 <Electronically signed by Dequan King> Date _ Dequan PARRA
[2019-12-06 11:37] LABS: Color, Urine Yellow (Yellow); Glucose, Dipstick 250 mg/dl (Normal); Hematocrit 51.4 % (40-54); Hemoglobin 16.9 g/dL (13.0-16.5); Ketone-Dipstick Negative (Negative); Leukocyte Esterase-Dipstick Negative /ul (Negative); Mean Corp Hgb Conc 32.9 g/dL (32-36); Mean Corpuscular Hgb 32.1 pg (27.0-32.0); Mean Corpuscular Volume 97.5 fL (80-94); Mean Platelet Vol. 10.7 fl (6.2-12.0); Nitrite-Dipstick Negative (Negative); Occult Blood-Urine Negative /ul (Negative); Platelet Count 155 K/mm3 (150-450); Protein-Dipstick 15 mg/dl (Negative); RBC Distribution Width CV 13.8 % (11.6-14.6); RBC Distribution Width SD 50.1 fl (35.1-43.9); Red Blood Count 5.27 M/mm3 (4.6-6.2); Specific Gravity, Urine 1.015 (1.002-1.030); Urine Bilirubin Dipstick Negative (Negative); Urine Clarity Clear (Clear); Urine Urobilinogen Normal (Normal); White Blood Count 7.4 K/mm3 (4.4-11.0)
[2019-12-06 11:48] LABS: Prothrombin Time (Protime)PT. 12.5 SECONDS (11.7-14.9)
[2019-12-06 12:31] LABS: Anion Gap 6 (5-15); BUN 44 mg/dL (7-18); BUN/Creat Ratio 20.2 RATIO (10-20); Chloride 99 mmol/L (98-107); Creatinine, Serum 2.18 mg/dL (0.70-1.30); EST Glomerular Filtration Rate 32 mL/min (>60); Est Glom Filt Rate - Afr Amer 38 mL/min (>60); Glucose 371 mg/dL (74-106); Potassium 4.9 mmol/L (3.5-5.1); Sodium Level 133 mmol/L (136-145)
--- NOTE | 2019-12-20 08:45 | HP.PCM_ITS ---
History and Physical Date of Admission: 12/22/19 Details: This is a 73-year-old male who presents to the [employer] [facility] today for an ICD Generator change. He has a history of ventricular tachycardia and ventricular fibrillation in April 2012, status post AICD placement in April 2012, hypertension, hyperlipidemia, coronary artery disease status post inferior wall myocardial infarction with unsuccessful angioplasty of his occluded RCA in April 2012. He has continued to have multiple ventricular tachycardia episodes since ICD placement. Patient presents today for generator change with Dr. Gillespie. Pt denies chest, arm, jaw, or neck discomfort. His exercise tolerance is stable. Pt denies symptoms of CHF, palpitations, lightheadedness, dizziness, near syncopal or syncopal episodes. Pt denies edema or claudication issues. Pt. denies orthopnea, PND, fever, chills, chronic cough, blood in urine, blood in stool, myalgia, or unexplainable fatigue. Intake Vital Signs: See EMR Intake Visit Reasons: ICD Generator change Interactive Media Marketing Strategist Required: No Accompanied by: none Is patient in pain?: No Allergies amiodarone Adverse Reaction (Severe, Verified 12/06/19 10:19) significant effect on lung function per PFT 09/19/17 Medications Aspirin [Adult Low Dose Aspirin EC] 81 mg PO DAILY 01/20/16 [History Confirmed 12/06/19] Losartan Potassium [Cozaar] 25 mg PO DAILY 01/20/16 [History Confirmed 12/06/19] Magnesium Oxide [Mag-Ox 400] 400 mg PO DAILY 01/20/16 [History Confirmed 12/06/19] P-Ephed HCl/Fexofenadine HCl [Jacquelin-D 24 Hour Tablet] 1 tab.sr PO DAILY 01/20/16 [History Confirmed 12/06/19] Pravastatin [Pravachol] 80 mg PO QHS 01/20/16 [History Confirmed 12/06/19] levothyroxine 100 mcg capsule 100 mcg PO QDAY 08/20/17 [History Confirmed 12/06/19] liraglutide 0.6 mg/0.1 mL (18 mg/3 mL) subcutaneous pen injector 1.8 mg SC QDAY 08/20/17 [History Confirmed 12/06/19] pioglitazone 15 mg tablet 15 mg PO QDAY 08/20/17 [History Confirmed 12/06/19] Insulin Aspart [Novolog Flexpen ([facility])] 50 units SUBCUT TIDCM 06/03/18 [History Confirmed 12/06/19] carvedilol 12.5 mg tablet 12.5 mg PO BID 07/26/18 [History Confirmed 12/06/19] furosemide 40 mg tablet 40 mg PO DAILY tab 07/26/18 [History Confirmed 12/06/19] Insulin Glargine [Lantus ([facility])] 26 units SUBCUT BID 10/20/18 [History Confirmed 12/06/19] [facility] Medical History (Updated 12/06/19 @ 11:14 by NP. Dequan Nettles, JOSE EC) Implantable cardioverter-defibrillator (ICD) at end of battery life (Chronic) Non-sustained ventricular tachycardia (Chronic) Left ventricular aneurysm (Chronic) Ventricular fibrillation (Resolved) Type 2 diabetes mellitus without complications (Chronic) Hypothyroidism (Chronic) Solitary kidney (Chronic) Diabetes mellitus, type II (Chronic) Atherosclerosis of coronary artery of [place] heart without angina pectoris (Chronic) Nicotine dependence (Chronic) Ischemic cardiomyopathy (Chronic) Old myocardial infarction (Chronic) Hyperlipidemia (Chronic) Hypertension (Chronic) Obesity (Chronic) Surgical History Hx of colonoscopy (Acute) History of left heart catheterization (Chronic ~01/21/16) History of electrophysiologic study (Chronic ~10/2012) Presence of automatic implantable cardioverter-defibrillator (Chronic) Social History (Updated 12/06/19 @ 11:15 by NP. Dequan Nettles, JOSE EC) Smoking Status: Current every day smoker ROS Const Const: Negative for fatigue, weakness, body ache, fever(s) or chills ENT ENT: Negative for dizziness Cardio Chest Pain: No Palpitations: No Edema: None Muscle aches with walking: None Resp Respiratory: Negative for SOB with activity, SOB at rest, SOB orthopnea\SOB lying down or paroxysmal nocturnal dyspnea GI GI: Negative nausea, vomiting blood/hematemesis, bright, red blood in stools or black,tarry stools : Negative for hematuria or frequent nighttime urination/ nocturia Musc Musc: Negative for muscle aches/ myalgia Skin Skin: Negative non-healing lesions or rash Neuro Neuro: Negative for dizziness, lightheadedness, near syncope, syncope, orthostatic symptoms or weakness Endo Endo: Negative for fatigue Allergy Allergy/Immunology: Negative for rash Cardiology Exam Const Appearance: cooperative, healthy appearing, comfortable and no acute distress Nutritional Appearance: well nourished and obese Orientation: alert, awake and oriented x3 Head Head: normal to inspection Ears: hearing grossly normal bilaterally Nose: external nose normal Face and Sinus: face symmetric Mouth: oral mucosae normal Eyes General: appearance normal, both eyes and all related structures Eyelids: eyelids normal EOM: EOM intact bilaterally Neck Neck: normal visual inspection and no JVD Carotids: normal carotid upstroke Chest Chest inspection: normal inspection of the chest, symmetric chest movement and normal respiratory effort; negative cough Auscultation: Bilateral: Clear to Auscultation Cardio Palpation: normal PMI Rate: regular rate Rhythm: regular rhythm Heart sounds: S1 normal and S2 normal; negative rub, gallop or murmur GI GI: normal to inspection and obese Neuro General: alert, awake, oriented x3 and CN's II-XI intact bilaterally Skin Skin: no rashes or lesions noted Extremities Pulses: Normal: Right Posterior Tibial Pulse, Left Posterior Tibial Pulse, Right Radial Pulse, Left Radial Pulse Lower Extremity Edema: None: Bilateral Psych Psychological: normal affect Assessment & Plan 1. Implantable cardioverter-defibrillator (ICD) at end of battery life Z45.02 Plan Remote dual-chamber ICD evaluation from 10/26/2019 showed no VT/VF episodes and no AT/AF episodes since 06/29/2019. Ventricular paced less than 1%. Atrial paced 25%. Estimate battery life 3.4 months. He underwent remote dual-chamber ICD evaluation on 12/01/2019 that showed no VT/VF episodes and no AT/AF episodes since 10/26/2019. Ventricular paced 1%. Atrial paced 38%. Estimated battery life 2.7 months. He underwent laboratory and microbiology evaluation. There were no noted concerns. He does have history of chronic kidney disease. He will proceed with ICD generator change with Dr. Gillespie. 2. Non-sustained ventricular tachycardia I47.2 Plan His most recent pacemaker evaluation from November 2019 did not reveal any VT or VF episodes. He denies any defibrillator discharges. At this time, he will continue current medical therapy, which includes carvedilol. We will continue to monitor. 3. Atherosclerosis of [place] coronary artery of [place] heart without angina pectoris I25.10 Plan As noted above, patient did have unsuccessful treatment to occluded RCA in 2012. His last stress test in 2017 was negative for ischemia. It was recommended after last office visit to repeat echocardiogram and stress echocardiogram. However, due to financial concerns, he did not proceed with such test. He denies any exertional symptoms today. At this time, he will continue current medical therapy and we will continue to monitor. He will continue risk factor and lifestyle modification. 4. Ischemic cardiomyopathy I25.5 Plan His most recent echocardiogram on 06/03/2018 showed an ejection fraction of 47%. He appears to be in [place] [employer] functional class I. He denies any symptoms of congestive heart failure. He has not appear to be in an overt fluid volume overload state. He will continue current medical therapy which includes carvedilol, Lasix, and losartan. We will continue to monitor. 5. Essential hypertension I10 Plan Patient's blood pressure is well-controlled. We will continue to monitor. We will not make any medication regimen changes. 6. Hyperlipidemia, unspecified hyperlipidemia type E78.5 Plan Lipid panel from 11/14/2019 showed cholesterol: 144, HDL: 39, LDL: 66, and triglycerides: 195. He will continue current statin medication. Additional Comments Thank you for allowing us to participate in the patients plan of care, if you have any questions please do not hesitate to call. This note was generated using a voice recognition system and there may be incorrect words, spelling or punctuation that were not noted when reviewing the office note prior to saving. Supplemental Info Supplemental Information Echocardiogram from 06/03/2018: Conclusions Summary: 1. Left ventricle: The cavity size is near upper normal. Wall thickness is moderately increased. Systolic function is mildly decreased by the biplane method of disks. The estimated ejection fraction is 47%. Akinesis with wall thinning of the basal inferolateral (posterior) myocardium; appears aneurysmal. Akinesis and thinning of the basal inferior myocardium; appears aneurysmal. Doppler parameters are consistent with abnormal left ventricular relaxation (grade 1 diastolic dysfunction). 2. No significant valve disease. Stress echocardiogram from 03/04/2017: Interpretation The estimated ejection fraction is 50%. Normal adequate dobutamine echocardiogram. Negative for ischemia by EKG and echocardiographic criteria. Rare PVC noted during infusion. No anginal symptoms noted during infusion. Patient had baseline inferior posterior aneurysm but had excellent contractility of all other jenkins during infusion. Patient telemetry procedure well. Appropriate blood pressure response to infusion of dobutamine. Decrease sensitivity due to poor echo windows and need for Definity contrast. Labs LDL Cholesterol 66 mg/dL (0-130) 11/14/19 HDL Cholesterol 39 mg/dL (40-) L 11/14/19 Triglycerides 195 mg/dL (-199) 11/14/19 VLDL Cholesterol 39 mg/dL (5-40) 11/14/19 Diagnostics Electrocardiogram 12/06/19 Echocardiogram 01/30/14 Pacemaker Check 12/01/19 Cardiac Catheterization 01/21/16 Chest X-Ray 06/03/18 Venous Doppler Study 01/02/18 Pulmonary Pulmonary Function Test 09/19/17 COVID (Procedure Consent) Procedure Criteria Procedure Criteria: Yes Elective The surgeon/proceduralist and patient have discussed in detail the risk of exposure to and/or potential harm posed by the COVID-19 virus with having a surgery/procedure at this time versus the risk of delaying the surgery/procedure. It is not possible to know either the risk of delaying the surgery or procedure or chance of getting an infection with perfect accuracy, but a joint decision was made between the patient and the surgeo n/proceduralist to proceed at this time with the scheduled surgery/procedure as indicated on the consent form. Addendum 12/22/2019: Patient seen prior procedure there were no changes noted compared to office visit. He will proceed as planned.
[2019-12-21 09:39] VITALS: BMI 31.7
--- NOTE | 2019-12-22 11:39 | OP.PCM_ITS ---
Report of Operation Date of Procedure: 12/22/19 Description of Procedure: Diagnosis: ischemic Cardiomyopathy with NYHA Class ii. ICD for secondaRY prevention. Device generator replacement for normal battery depletion Preoperative diagnosis is device at end of life for normal battery depletion. Postoperative diagnosis same as above. After informed consent and IV antibiotics the patient was brought to the [place] [facility] laboratory and the skin over the device was prepped and draped in the usual sterile manner. Intermittent boluses of Versed, and fentanyl were used for sedation and analgesia as well as 1% subcutaneous lidocaine. An incision was made over the pre-existing device. Using blunt and Bovie dissection the pocket was opened and the device was removed. Careful attention was paid not to injure the pre-existing leads. The leads were removed from the device header and they were interrogated. There is normal lead function. Hemostasis was obtained. The pocket was flushed with antibiotic solution. The sponge and needle count were correct. The new device was brought to the field. The leads were placed in the appropriate position in the header and secured by the set screw. The leads and the device were then placed in the pocket. The pocket was closed with a deep layer of running 2-0 Vicryl, a superficial layer of running 4-0 Vicryl, skin with Steri-Strips which were covered with a rolled 4 x 4 and Tegaderm. Patient left the room with the device programmed to proper pa rameters and there were no complications. The device is a DUAL CHAMBER chamber ICD GUARDADO generator. All lead parameters were tested and found to be functionally normal. Lead and device serial and model numbers are available in the chart documents provided by the device company financial services representative procedure summary.
== END 2019-12-22 12:45 | disposition home or self-care (01) ==
LOC: CLSP 09:14
PROVIDERS: Nurse Practitioner Family; PCP Family Medicine; Referring Provider Internal Medicine Cardiovascular Disease; Visit Provider Internal Medicine Cardiovascular Disease
DX: I47.2 Ventricular tachycardia (principal); Z45.02 Encounter for adjustment and management of automatic implantable cardiac defibrillator; E78.5 Hyperlipidemia, unspecified; I25.10 Atherosclerotic heart disease of native coronary artery without angina pectoris; I25.2 Old myocardial infarction; E03.9 Hypothyroidism, unspecified; I25.5 Ischemic cardiomyopathy; F17.200 Nicotine dependence, unspecified, uncomplicated; I12.9 Hypertensive chronic kidney disease with stage 1 through stage 4 chronic kidney disease, or unspecified chronic kidney disease; E11.22 Type 2 diabetes mellitus with diabetic chronic kidney disease; N18.9 Chronic kidney disease, unspecified; Z95.810 Presence of automatic (implantable) cardiac defibrillator; Z79.82 Long term (current) use of aspirin; Z79.4 Long term (current) use of insulin; Z79.899 Other long term (current) drug therapy
CPT/HCPCS: 33263; 36415; 80048; 81001; 85027; 85610; 93641; 99152; 99153; J7040; J7050

== ENCOUNTER → 2020-02-14 10:09 | Outpatient (CLI) | payer MEDICARE, SELFPAY ==
[2019-12-21 09:39] VITALS: BMI 31.7
[2020-02-14 12:23] LABS: Absolute Lymphocyte Count 1.48 X10^3/uL (0.83-4.51); Absolute Neutrophil Count 5.1 X10^3/uL (2.0-7.7); Basophil# 0.03 X10^3/uL; Basophil% 0.4 % (0-1); Eosinophil# 0.13 X10^3/uL; Eosinophils% 1.8 % (0-5); Hematocrit 47.9 % (40-54); Hemoglobin 15.8 g/dL (13.0-16.5); Lymphocyte # 1.48 X10^3/ul (4.0); Lymphocyte % 20.1 % (19-41); Mean Corpuscular Hgb 31.9 pg (27.0-32.0); Mean Corpuscular Volume 96.6 fL (80-94); Mean Platelet Vol. 11.1 fl (6.2-12.0); Monocyte# 0.58 X10^3/uL; Monocyte% 7.9 % (0-10); NRBC Flagged by Analyzer 0 % (0-5); Platelet Count 144 K/mm3 (150-450); RBC Distribution Width CV 13.9 % (11.6-14.6); RBC Distribution Width SD 49.3 fl (35.1-43.9); Red Blood Count 4.96 M/mm3 (4.6-6.2); White Blood Count 7.4 K/mm3 (4.4-11.0)
[2020-02-14 12:44] LABS: Hemoglobin A1c 11.2 % (3.8-5.6)
[2020-02-14 12:45] LABS: Vitamin D,25 Hydroxy 34.9 ng/mL
[2020-02-14 12:59] LABS: ALB/GLOB Ratio 0.8 RATIO (0.9-2.4); AST(SGOT) 21 U/L (15-37); Alanine Aminotransfer ALT/SGPT 28 U/L (16-61); Albumin, Serum 3.2 g/dL (3.2-5.0); Alkaline Phosphatase 72 U/L (45-117); Anion Gap 7 (5-15); BUN 43 mg/dL (7-18); BUN/Creat Ratio 19.4 RATIO (10-20); Calcium,Total 8.5 mg/dL (8.5-10.1); Chloride 98 mmol/L (98-107); Creatinine, Serum 2.22 mg/dL (0.70-1.30); EST Glomerular Filtration Rate 31 mL/min (>60); Est Glom Filt Rate - Afr Amer 37 mL/min (>60); Globulin 3.8 g/dL (2.2-4.2); Glucose 533 mg/dL (74-106); Potassium 5.1 mmol/L (3.5-5.1); Sodium Level 131 mmol/L (136-145); Thyroid Stim Hormone (TSH) 1.07 uIU/mL (0.358-3.74)
[2020-02-16 08:06] LABS: SARS-COV-2 TOTAL ABS Nonreactive (Nonreactive)
== END ==
PROVIDERS: PCP Family Medicine; Referring Provider Family Medicine; Visit Provider Family Medicine
DX: E11.49 Type 2 diabetes mellitus with other diabetic neurological complication (principal); J44.9 Chronic obstructive pulmonary disease, unspecified; Z20.828 Contact with and (suspected) exposure to other viral communicable diseases; E11.22 Type 2 diabetes mellitus with diabetic chronic kidney disease; N18.30 Chronic kidney disease, stage 3 unspecified
CPT/HCPCS: 36415; 80053; 82306; 83036; 84443; 85025; 86769

== ENCOUNTER → 2020-05-11 08:34 | Outpatient (CLI) | payer MEDICARE, SELFPAY ==
[2020-02-24 08:08] VITALS: BMI 31.6
--- NOTE | 2020-05-11 10:51 | NEURO_ITS ---
NCS and/or EMG Patient Report Ordering Doctor: Nathen Chang DATE OF SERVICE: 05/11/20 Indication: Numbness and tingling of both feet. Coldness in both lower extremities. History of diabetes mellitus (HbA1c 11%). No significant low back or radicular pain. Evaluate for peripheral polyneuropathy. Findings: Nerve conduction studies were performed in the right lower extremity. Examination of the other limbs was deferred at the request of the patient. The right peroneal motor study recording the extensor digitorum brevis showed a reduced amplitude, normal distal latency and slowed conduction velocity. No conduction block or focal slowing was present across the fibular neck. The right tibial motor study recording the abductor hallucis brevis showed a reduced amplitude, normal distal latency and mildly slowed conduction velocity. Right sural sensory response showed a normal amplitude and borderline conduction velocity. Right superficial peroneal sensory response was absent. Right medial plantar sensory response showed a normal amplitude and mildly slowed conduction velocity. Right lateral plantar sensory response showed a normal amplitude and mildly slowed conduction velocity. Needle EMG of the right lower extremity muscles was performed. Examination of the other limbs was deferred at the request of the patient. No denervation was present in any muscle. Motor units in the tibialis anterior were slightly large amplitude and long duration. Motor units in the extensor hallucis longus were large amplitude, long duration and polyphasic with reduced recruitment. Motor unit sin the tensor fascia latae were large amplitude, long duration and polyphasic with normal recruitment. Other examined muscles demonstrated normal motor unit morphology, activation, and recruitment patterns. Impression: This is an abnormal, but limited study (see explanation above). There is electrophysiologic evidence of a chronic L5 radiculopathy. This may also account for the absent superficial peroneal sensory response being absent. In some cases the dorsal root ganglion is intraspinal at this level resulting in Wallerian degeneration following mechanical impingement. There is no active denervation to suggest ongoing motor axonal loss. In addition, there is no definitive electrophysiologic evidence of peripheral n europathy. Though, the diffusely slowed conduction velocities are suggestive. Please note: routine nerve conduction studies and needle EMG assess the larger, myelinated motor and sensory fibers. Thus, routine electrodiagnostic studies may be insensitive in detecting a peripheral neuropathy restricted to small fibers alone (i.e., pain, temperature and autonomic fibers). However, most peripheral neuropathies with predominantly small fiber large dysfunction will also involve large fibers to a lesser extent, and will demonstrate abnormalities on electrodiagnostic studies. Thus, clinical correlation is required in the interpretation of this negative electrodiagnostic study if an isolated small fiber neuropathy is considered. Pepe Sinha D.O.
== END ==
PROVIDERS: PCP Family Medicine; Referring Provider Family Medicine; Visit Provider Family Medicine
DX: R20.0 Anesthesia of skin (principal); R20.2 Paresthesia of skin; R60.0 Localized edema
CPT/HCPCS: 95886; 95909

== ENCOUNTER → 2020-06-05 09:00 | Outpatient (CLI) | payer MEDICARE, SELFPAY ==
[2020-02-24 08:08] VITALS: BMI 31.6
[2020-06-05 10:06] LABS: Absolute Neutrophil Count 6.2 X10^3/uL (2.0-7.7); Basophil# 0.05 X10^3/uL; Basophil% 0.6 % (0-1); Eosinophil# 0.16 X10^3/uL; Eosinophils% 1.9 % (0-5); Hematocrit 51.2 % (40-54); Hemoglobin 17.5 g/dL (13.0-16.5); Lymphocyte % 17.4 % (19-41); Mean Corp Hgb Conc 34.2 g/dL (32-36); Mean Corpuscular Hgb 32.4 pg (27.0-32.0); Mean Corpuscular Volume 94.8 fL (80-94); Mean Platelet Vol. 10.7 fl (6.2-12.0); Monocyte# 0.72 X10^3/uL; Monocyte% 8.3 % (0-10); NRBC Flagged by Analyzer 0 % (0-5); Neutrophil # 6.15 X10^3/uL (2.7-7.7); Neutrophil % 71.2 % (47-70); Platelet Count 154 K/mm3 (150-450); RBC Distribution Width CV 13.3 % (11.6-14.6); White Blood Count 8.6 K/mm3 (4.4-11.0)
[2020-06-05 10:35] LABS: Hemoglobin A1c 11.5 % (3.8-5.6)
[2020-06-05 10:49] LABS: ALB/GLOB Ratio 0.9 RATIO (0.9-2.4); AST(SGOT) 22 U/L (15-37); Alanine Aminotransfer ALT/SGPT 29 U/L (16-61); Albumin, Serum 3.3 g/dL (3.2-5.0); Alkaline Phosphatase 75 U/L (45-117); Anion Gap 9 (5-15); BUN 34 mg/dL (7-18); BUN/Creat Ratio 17.5 RATIO (10-20); Calcium,Total 9.4 mg/dL (8.5-10.1); Chloride 98 mmol/L (98-107); Creatinine, Serum 1.94 mg/dL (0.70-1.30); EST Glomerular Filtration Rate 36 mL/min (>60); Est Glom Filt Rate - Afr Amer 44 mL/min (>60); Globulin 3.7 g/dL (2.2-4.2); Glucose 388 mg/dL (74-106); Potassium 4.5 mmol/L (3.5-5.1); Sodium Level 134 mmol/L (136-145); Thyroid Stim Hormone (TSH) 1.27 uIU/mL (0.358-3.74)
== END ==
PROVIDERS: PCP Family Medicine; Referring Provider Family Medicine; Visit Provider Family Medicine
DX: I50.812 Chronic right heart failure (principal); E11.39 Type 2 diabetes mellitus with other diabetic ophthalmic complication
CPT/HCPCS: 36415; 80053; 82043; 82570; 83036; 84443; 85025

== ENCOUNTER → 2020-08-13 08:45 | Outpatient (CLI) | payer MEDICARE, SELFPAY ==
[2020-06-18 09:56] VITALS: BMI 31.7
[2020-08-13 10:04] LABS: Absolute Lymphocyte Count 1.56 X10^3/uL (0.83-4.51); Absolute Neutrophil Count 5.3 X10^3/uL (2.0-7.7); Basophil# 0.03 X10^3/uL; Basophil% 0.4 % (0-1); Eosinophil# 0.15 X10^3/uL; Hematocrit 50.9 % (40-54); Hemoglobin 17.3 g/dL (13.0-16.5); Lymphocyte # 1.56 X10^3/ul (0.83-4.51); Lymphocyte % 20.4 % (19-41); Mean Corpuscular Hgb 32.1 pg (27.0-32.0); Mean Corpuscular Volume 94.4 fL (80-94); Mean Platelet Vol. 10.7 fl (6.2-12.0); Monocyte# 0.59 X10^3/uL; Monocyte% 7.7 % (0-10); NRBC Flagged by Analyzer 0 % (0-5); Neutrophil # 5.25 X10^3/uL (2.7-7.7); Neutrophil % 68.8 % (47-70); Platelet Count 143 K/mm3 (150-450); RBC Distribution Width CV 13.9 % (11.6-14.6); RBC Distribution Width SD 48.8 fl (35.1-43.9); Red Blood Count 5.39 M/mm3 (4.6-6.2); White Blood Count 7.6 K/mm3 (4.4-11.0)
[2020-08-13 10:23] LABS: ALB/GLOB Ratio 0.8 RATIO (0.9-2.4); AST(SGOT) 30 U/L (15-37); Alanine Aminotransfer ALT/SGPT 35 U/L (16-61); Albumin, Serum 3.2 g/dL (3.2-5.0); Alkaline Phosphatase 67 U/L (45-117); Anion Gap 6 (5-15); BUN 47 mg/dL (7-18); BUN/Creat Ratio 23.6 RATIO (10-20); Calcium,Total 9.3 mg/dL (8.5-10.1); Chloride 101 mmol/L (98-107); Creatinine, Serum 1.99 mg/dL (0.70-1.30); EST Glomerular Filtration Rate 35 mL/min (>60); Est Glom Filt Rate - Afr Amer 42 mL/min (>60); Globulin 3.8 g/dL (2.2-4.2); Glucose 309 mg/dL (74-106); Potassium 5.2 mmol/L (3.5-5.1); Sodium Level 131 mmol/L (136-145)
[2020-08-13 10:58] LABS: Hepatitis C Antibody Non-Reactive (Nonreactive); Vitamin B12 499 pg/mL (211-911)
== END ==
PROVIDERS: PCP Family Medicine; Referring Provider Family Medicine; Visit Provider Family Medicine
DX: J44.9 Chronic obstructive pulmonary disease, unspecified (principal); E11.39 Type 2 diabetes mellitus with other diabetic ophthalmic complication; D53.1 Other megaloblastic anemias, not elsewhere classified; Z11.59 Encounter for screening for other viral diseases
CPT/HCPCS: 36415; 80053; 82607; 85025; 86803

== ENCOUNTER 2021-05-21 10:43 | Outpatient (CLI) | payer MEDICARE, SELFPAY ==
[2021-05-21 12:22] LABS: Absolute Lymphocyte Count 1.41 X10^3/uL (0.83-4.51); Basophil# 0.05 X10^3/uL; Basophil% 0.7 % (0-1); Eosinophil# 0.19 X10^3/uL; Eosinophils% 2.6 % (0-5); Hematocrit 42.7 % (40-54); Hemoglobin 14.3 g/dL (13.0-16.5); Lymphocyte # 1.41 X10^3/ul (0.83-4.51); Mean Corp Hgb Conc 33.5 g/dL (32-36); Mean Corpuscular Hgb 30.7 pg (27.0-32.0); Mean Corpuscular Volume 91.6 fL (80-94); Mean Platelet Vol. 10.6 fl (6.2-12.0); Monocyte# 0.66 X10^3/uL; Monocyte% 8.9 % (0-10); NRBC Flagged by Analyzer 0 % (0-5); Neutrophil # 5.04 X10^3/uL (2.7-7.7); Platelet Count 162 K/mm3 (150-450); RBC Distribution Width CV 13.5 % (11.6-14.6); Red Blood Count 4.66 M/mm3 (4.6-6.2); White Blood Count 7.4 K/mm3 (4.4-11.0)
[2021-05-21 12:45] LABS: Hemoglobin A1c 13.1 % (3.8-5.6)
[2021-05-21 12:54] LABS: Microalbumin,Random Urine 92.4 mg/L (NO RANGE EST.); Microalbumin:Creatinine Ratio 238.1 mg/g CRE (<30 mg/g CRE)
[2021-05-21 12:56] LABS: ALB/GLOB Ratio 0.9 RATIO (0.9-2.4); AST(SGOT) 25 U/L (15-37); Alanine Aminotransfer ALT/SGPT 33 U/L (16-61); Albumin, Serum 3.2 g/dL (3.2-5.0); Alkaline Phosphatase 69 U/L (45-117); Anion Gap 6 (5-15); BUN 42 mg/dL (7-18); BUN/Creat Ratio 19.4 RATIO (10-20); Calcium,Total 9.5 mg/dL (8.5-10.1); Chloride 95 mmol/L (98-107); Creatinine, Serum 2.16 mg/dL (0.70-1.30); EST Glomerular Filtration Rate 32 mL/min (>60); Est Glom Filt Rate - Afr Amer 39 mL/min (>60); Globulin 3.6 g/dL (2.2-4.2); Glucose 686 mg/dL (74-106); Potassium 5.8 mmol/L (3.5-5.1); Protein, Total 6.8 g/dL (6.4-8.2); Sodium Level 127 mmol/L (136-145)
[2021-05-21 13:12] LABS: Vitamin B12 615 pg/mL (211-911)
== END 2021-05-21 23:59 | disposition home or self-care (01) ==
LOC: MFPLAB 10:44
PROVIDERS: PCP Family Medicine; Referring Provider Family Medicine; Visit Provider Family Medicine
DX: D51.9 Vitamin B12 deficiency anemia, unspecified (principal); E11.39 Type 2 diabetes mellitus with other diabetic ophthalmic complication; F17.201 Nicotine dependence, unspecified, in remission
CPT/HCPCS: 36415; 80053; 82043; 82570; 82607; 82746; 83036; 85025

== ENCOUNTER 2021-05-28 12:23 | Outpatient (CLI) | payer MEDICARE, SELFPAY ==
[2021-05-28 15:54] LABS: Anion Gap 7 (5-15); BUN 27 mg/dL (7-18); BUN/Creat Ratio 16.9 RATIO (10-20); Calcium,Total 9.4 mg/dL (8.5-10.1); Chloride 104 mmol/L (98-107); EST Glomerular Filtration Rate 45 mL/min (>60); Est Glom Filt Rate - Afr Amer 54 mL/min (>60); Glucose 129 mg/dL (74-106); Potassium 4.4 mmol/L (3.5-5.1); Sodium Level 138 mmol/L (136-145)
== END 2021-05-28 23:59 | disposition home or self-care (01) ==
LOC: MFPLAB 12:24
PROVIDERS: PCP Family Medicine; Referring Provider Family Medicine; Visit Provider Family Medicine
DX: E11.39 Type 2 diabetes mellitus with other diabetic ophthalmic complication (principal)
CPT/HCPCS: 36415; 80048

== ENCOUNTER → 2021-09-05 | Outpatient (CLI) | payer MEDICARE, SELFPAY ==
[2021-09-05 12:26] LABS: Absolute Lymphocyte Count 1.34 X10^3/uL (0.83-4.51); Absolute Neutrophil Count 5.4 X10^3/uL (2.0-7.7); Basophil# 0.05 X10^3/uL; Basophil% 0.7 % (0-1); Eosinophil# 0.16 X10^3/uL; Eosinophils% 2.1 % (0-5); Hematocrit 42.7 % (40-54); Hemoglobin 14.3 g/dL (13.0-16.5); Lymphocyte # 1.34 X10^3/ul (0.83-4.51); Lymphocyte % 17.6 % (19-41); Mean Corp Hgb Conc 33.5 g/dL (32-36); Mean Corpuscular Hgb 30.7 pg (27.0-32.0); Mean Corpuscular Volume 91.6 fL (80-94); Mean Platelet Vol. 10.7 fl (6.2-12.0); Monocyte# 0.61 X10^3/uL; NRBC Flagged by Analyzer 0 % (0-5); Neutrophil # 5.39 X10^3/uL (2.7-7.7); Neutrophil % 70.9 % (47-70); Platelet Count 150 K/mm3 (150-450); RBC Distribution Width SD 43.6 fl (35.1-43.9); Red Blood Count 4.66 M/mm3 (4.6-6.2); White Blood Count 7.6 K/mm3 (4.4-11.0)
[2021-09-05 14:03] LABS: Hemoglobin A1c 11.6 % (3.8-5.6)
[2021-09-05 14:17] LABS: ALB/GLOB Ratio 0.8 RATIO (0.9-2.4); AST(SGOT) 20 U/L (15-37); Alanine Aminotransfer ALT/SGPT 27 U/L (16-61); Albumin, Serum 3.3 g/dL (3.2-5.0); Alkaline Phosphatase 71 U/L (45-117); Anion Gap 7 (5-15); BUN 52 mg/dL (7-18); BUN/Creat Ratio 22.4 RATIO (10-20); Calcium,Total 9.3 mg/dL (8.5-10.1); Chloride 98 mmol/L (98-107); Creatinine, Serum 2.32 mg/dL (0.70-1.30); EST Glomerular Filtration Rate 29 mL/min (>60); Est Glom Filt Rate - Afr Amer 35 mL/min (>60); Globulin 3.9 g/dL (2.2-4.2); Glucose 455 mg/dL (74-106); Potassium 5.9 mmol/L (3.5-5.1); Protein, Total 7.2 g/dL (6.4-8.2); Sodium Level 130 mmol/L (136-145); Thyroid Stim Hormone (TSH) 0.71 uIU/mL (0.358-3.74)
== END | disposition home or self-care (01) ==
LOC: MFPLAB 09:39
PROVIDERS: PCP Family Medicine; Visit Provider Family Medicine
DX: E11.39 Type 2 diabetes mellitus with other diabetic ophthalmic complication (principal); E03.9 Hypothyroidism, unspecified
CPT/HCPCS: 36415; 80053; 83036; 84443; 85025

== ENCOUNTER 2021-10-22 18:25 | Emergency (ER) | payer MEDICARE, SELFPAY ==
[2021-10-22 18:25] VITALS: BP 81/68; PULSE 73; RESP 18; TEMP 36.6; O2SAT 93; BMI 31.2
--- NOTE | 2021-10-22 18:47 | EKG12_ITS ---
Test Reason : pain Blood Pressure : / mmHG Vent. Rate : 071 BPM Atrial Rate : 071 BPM P-R Int : 176 ms QRS Dur : 114 ms QT Int : 422 ms P-R-T Axes : 041 -25 008 degrees QTc Int : 458 ms Normal sinus rhythm Right bundle branch block Inferior infarct , age undetermined Abnormal ECG Confirmed by RICK ARCE, VIKKI ([id number]), art editor SO CARDENAS ([id number]) on 10/24/2021 2:13:36 PM Referred By: Suasn Confirmed By:VIKKI CABRERA MD
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
[2021-10-22] MEDS: 0.9% Normal Saline 1,000 ML 1000 ML IV (18:57)
[2021-10-22 18:58] LABS: Absolute Lymphocyte Count 2.16 X10^3/uL (0.83-4.51); Absolute Neutrophil Count 4.2 X10^3/uL (2.0-7.7); Basophil# 0.04 X10^3/uL; Basophil% 0.5 % (0-1); Eosinophil# 0.17 X10^3/uL; Eosinophils% 2.3 % (0-5); Hematocrit 42.5 % (40-54); Hemoglobin 14.5 g/dL (13.0-16.5); Lymphocyte # 2.16 X10^3/ul (0.83-4.51); Mean Corp Hgb Conc 34.1 g/dL (32-36); Mean Corpuscular Hgb 30.5 pg (27.0-32.0); Mean Corpuscular Volume 89.5 fL (80-94); Mean Platelet Vol. 10.4 fl (6.2-12.0); Monocyte% 10.8 % (0-10); NRBC Flagged by Analyzer 0 % (0-5); Neutrophil # 4.22 X10^3/uL (2.7-7.7); Neutrophil % 56.7 % (47-70); Platelet Count 185 K/mm3 (150-450); RBC Distribution Width CV 13.1 % (11.6-14.6); RBC Distribution Width SD 42.7 fl (35.1-43.9); Red Blood Count 4.75 M/mm3 (4.6-6.2); White Blood Count 7.4 K/mm3 (4.4-11.0)
[2021-10-22] MEDS: 0.9% Normal Saline 1,000 ML 150 ML IV (19:05)
[2021-10-22 19:10] LABS: Anion Gap 11 (5-15); BUN 60 mg/dL (7-18); BUN/Creat Ratio 19.1 RATIO (10-20); Calcium,Total 10.1 mg/dL (8.5-10.1); Chloride 95 mmol/L (98-107); Creatinine, Serum 3.14 mg/dL (0.70-1.30); EST Glomerular Filtration Rate 21 mL/min (>60); Est Glom Filt Rate - Afr Amer 25 mL/min (>60); Estimated Creatinine Clearance 22.31 ml/min; Glucose 108 mg/dL (74-106); Magnesium 3.1 mg/dL (1.6-2.6); Potassium 3.8 mmol/L (3.5-5.1); Sodium Level 136 mmol/L (136-145)
[2021-10-22 19:35] VITALS: BP 127/61; PULSE 66; RESP 16; O2SAT 92
[2021-10-22 20:30] VITALS: BP 137/71; PULSE 67; RESP 25; O2SAT 94
[2021-10-22] MEDS: fentaNYL 100 MCG/2 ML Ampul 25 MCG IV (20:32)
[2021-10-22 21:23] VITALS: BP 124/64; PULSE 74; RESP 16; O2SAT 94
[2021-10-22 23:02] VITALS: BP 127/71; PULSE 78; RESP 16; O2SAT 94
== END 2021-10-22 23:52 | disposition home or self-care (01) ==
PROVIDERS: Emergency Provider Emergency Medicine; PCP Family Medicine; Visit Provider Emergency Medicine
DX: E86.0 Dehydration (principal); M62.838 Other muscle spasm; I25.10 Atherosclerotic heart disease of native coronary artery without angina pectoris; I95.9 Hypotension, unspecified; M25.572 Pain in left ankle and joints of left foot; M25.571 Pain in right ankle and joints of right foot; I10 Essential (primary) hypertension; E78.5 Hyperlipidemia, unspecified; Z79.82 Long term (current) use of aspirin; Z79.899 Other long term (current) drug therapy; Z87.891 Personal history of nicotine dependence
CPT/HCPCS: 80048; 83735; 85025; 93005; 96361; 96374; 99285; J7030

== ENCOUNTER → 2021-10-25 | Outpatient (CLI) | payer MEDICARE, SELFPAY ==
[2021-10-25 10:31] LABS: Anion Gap 5 (5-15); BUN 47 mg/dL (7-18); BUN/Creat Ratio 18.6 RATIO (10-20); Calcium,Total 10.1 mg/dL (8.5-10.1); Chloride 94 mmol/L (98-107); Creatinine, Serum 2.53 mg/dL (0.70-1.30); EST Glomerular Filtration Rate 27 mL/min (>60); Est Glom Filt Rate - Afr Amer 32 mL/min (>60); Glucose 555 mg/dL (74-106); Magnesium 2.5 mg/dL (1.6-2.6); Potassium 4.8 mmol/L (3.5-5.1); Sodium Level 130 mmol/L (136-145)
== END | disposition home or self-care (01) ==
LOC: MFPLAB 08:27
PROVIDERS: PCP Family Medicine; Referring Provider Family Medicine; Visit Provider Family Medicine
DX: N28.9 Disorder of kidney and ureter, unspecified (principal)
CPT/HCPCS: 36415; 80048; 83735

== ENCOUNTER 2021-11-06 22:48 | Emergency (ER) | payer MEDICARE, SELFPAY ==
[2021-11-06 22:49] VITALS: BP 155/82; PULSE 63; RESP 22; TEMP 36.2; O2SAT 94; BMI 32.8
[2021-11-06 23:15] LABS: Bedside Glucose 67 mg/dL (74-106)
[2021-11-06 23:30] LABS: Absolute Lymphocyte Count 1.11 X10^3/uL (0.83-4.51); Absolute Neutrophil Count 6.5 X10^3/uL (2.0-7.7); Basophil# 0.02 X10^3/uL; Basophil% 0.2 % (0-1); Eosinophil# 0.15 X10^3/uL; Eosinophils% 1.7 % (0-5); Hematocrit 39.1 % (40-54); Hemoglobin 13.4 g/dL (13.0-16.5); Lymphocyte # 1.11 X10^3/ul (0.83-4.51); Lymphocyte % 12.6 % (19-41); Mean Corp Hgb Conc 34.3 g/dL (32-36); Mean Corpuscular Hgb 31.3 pg (27.0-32.0); Mean Corpuscular Volume 91.4 fL (80-94); Mean Platelet Vol. 9.8 fl (6.2-12.0); Monocyte# 0.97 X10^3/uL; NRBC Flagged by Analyzer 0 % (0-5); Neutrophil # 6.45 X10^3/uL (2.7-7.7); Neutrophil % 73.3 % (47-70); Platelet Count 158 K/mm3 (150-450); RBC Distribution Width CV 14.2 % (11.6-14.6); RBC Distribution Width SD 47.9 fl (35.1-43.9); Red Blood Count 4.28 M/mm3 (4.6-6.2); White Blood Count 8.8 K/mm3 (4.4-11.0)
[2021-11-06 23:38] LABS: AST(SGOT) 36 U/L (15-37); Alanine Aminotransfer ALT/SGPT 32 U/L (16-61); Albumin, Serum 3.1 g/dL (3.2-5.0); Alkaline Phosphatase 52 U/L (45-117); Anion Gap 5 (5-15); BUN 32 mg/dL (7-18); BUN/Creat Ratio 22.1 RATIO (10-20); Bilirubin, Direct 0.12 mg/dL (0.00-0.30); Calcium,Total 9.1 mg/dL (8.5-10.1); Chloride 114 mmol/L (98-107); Creatinine, Serum 1.45 mg/dL (0.70-1.30); EST Glomerular Filtration Rate 50 mL/min (>60); Est Glom Filt Rate - Afr Amer 61 mL/min (>60); Estimated Creatinine Clearance 48.31 ml/min; Globulin 3.4 g/dL (2.2-4.2); Glucose 67 mg/dL (74-106); Magnesium 1.9 mg/dL (1.6-2.6); Potassium 4.1 mmol/L (3.5-5.1); Protein, Total 6.5 g/dL (6.4-8.2); Sodium Level 143 mmol/L (136-145)
[2021-11-07 00:11] LABS: Bedside Glucose 124 mg/dL (74-106)
--- NOTE | 2021-11-07 00:56 | EDS_ITS ---
HPI History of Present Illness Chief Complaint: Hypoglycemia Narrative Narrative: Patient is a 75-year-old male with past medical history of hypertension hyperlipidemia chronic kidney disease and status post pacemaker/ICD placement. Patient is to take Lantus NovoLog and insulin aspartate. Reported this evening after taking his insulin he then began to have depressed mental status and secondary to his called EMS. EMS states when they arrived to check his blood sugar and it was low and therefore they started him on D10. On arrival to the ER he is awake alert and oriented and his blood sugar is approximately 65. The patient states that he believes he took his normal medication without a accidental overdose or injection of the wrong drug. 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) Solitary kidney Sustained ventricular tachycardia Ventricular fibrillation Home Medications aspirin 81 mg tablet,delayed release 81 mg PO DAILY 01/20/16 [History Last Taken Unknown] fexofenadine-pseudoephedrine ER 180 mg-240 mg tablet,ext.release 24 hr 1 tab.sr PO DAILY 01/20/16 [History Last Taken Unknown] pravastatin 80 mg tablet 80 mg PO QHS 01/20/16 [History Last Taken Unknown] levothyroxine 100 mcg capsule 100 mcg PO QDAY 08/20/17 [History Last Taken 12/22/19] insulin aspart U-100 100 unit/mL (3 mL) subcutaneous pen See Rx Instructions subcut TIDCM 02/24/20 [History Last Taken Unknown] insulin glargine 100 unit/mL (3 mL) subcutaneous pen 36 unit subcut DAILY 02/24/20 [History Last Taken Unknown] carvedilol 25 mg tablet 25 mg PO BID #180 tabs 01/15/21 [Rx Last Taken Unknown] cholecalciferol (vitamin D3) 125 mcg (5,000 unit) capsule 125 mcg PO DAILY 01/15/21 [History Last Taken Unknown] acetaminophen 500 mg tablet (Tylenol Extra Strength) 1,000 mg PO Q6H PRN pain #20 tabs 10/22/21 [Rx Last Taken Unknown] insulin glargine 100 unit/mL (3 mL) subcutaneous pen 36 unit subcut QPM 10/22/21 [History Last Taken Unknown] Allergy/AdvReac Type Severity Reaction Status Date / Time amiodarone AdvReac Severe significant Verified 10/22/21 18:28 effect on lung function per PFT 09/19/17 Family History Father Colon cancer Surgical History History of electrophysiologic study (10/21/12) History of implantable cardiac defibrillator (ICD) (04/12/12) History of left heart catheterization (01/21/16) Hx of colonoscopy Social History Smoking Status: Former smoker ROS ROS ED Constitutional Constitutional ED: Denies chills or fever(s) ENT ENT ED: Denies sore throat Cardiovascular Cardiovascular: Denies chest pain Respiratory/Chest Respiratory/Chest: Denies cough or dyspnea Gastrointestinal Gastrointestinal: Reports diarrhea; Denies abdominal pain, nausea or vomiting Genitourinary Genitourinary ED: Denies dysuria Musculoskeletal Musculoskeletal: Denies myalgias Integumentary Denies rash Neurologic Neurologic: Reports weakness; Denies headache(s) Hematologic/Lymphatic Hematologic/Lymphatic: Denies easy bleeding or easy bruising EXAM Physical Exam Const Vital Signs: 11/06/21 22:49 11/06/21 22:54 11/07/21 01:13 Temperature 97.2 F L Temperature Source Temporal Pulse Rate 63 74 Respiratory Rate 22 H 16 Respiratory Effort Normal Non-Labored Respiratory Pattern Normal Blood Pressure 155/82 H 148/72 H Blood Pressure Mean 106 97 Pulse Ox 94 95 Oxygen Delivery Method Room Air 11/07/21 01:13 Temperature Temperature Source Pulse Rate 74 Respiratory Rate 16 Respiratory Effort Respiratory Pattern Blood Pressure 148/72 H Blood Pressure Mean Pulse Ox 95 Oxygen Delivery Method Positive well nourished, well developed and obese General Appearance ED: well developed Nutritional Appearance: obese HEENT Reports moist mucous membranes Eyes PERRL and EOMs intact bilaterally Neck supple Resp normal respiratory effort and clear to auscultation bilaterally Cardio regular rate and regular rhythm Rate: other Other Details: Radial pulses are plus 2 out of 4 bilaterally are equal and symmetric GI normal to inspection, nondistended, normoactive bowel sounds, non-tender and non-distended GI Narrative: No voluntary guarding or rigidity no pulsatile mass Auscultation: normoactive bowel sounds Palpation: soft Extremity normal to inspection Neuro oriented x3 and CN's II-XII intact bilaterally Sensorium / Orientation: alert Psych mental status grossly normal Skin no rashes or lesions noted MDM MDM MDM Narrative Medical decision making narrative: Patient presented to the ER awake and alert with a nonfocal exam. He is unsure if he took a different type of insulin other than his long-acting nighttime or an inadvertent overdose. Secondary to this I did elect to perform basic laboratory studies. Blood work revealed no clinically significant findings with an improvement of his creatinine from his last visit and no severe electrolyte derangement changes. After the D10 patient's blood sugar did improve to approximately 125. He was watched in the ER for a little over 2 hours and with concern this could be fast acting NovoLog or insulin aspartate which would have a peak duration of 1 to 3-hour his total evaluation from injection time to ER visit does overlap this 3-hour window. As his blood sugar has maintained its stability and his work-up is negative and his abdomen remains soft and nonsurgical I do not feel there is need for further work-up and patient is otherwise safe for discharge. Lab Data Attestation: I reviewed the patient's lab results. Labs: Laboratory Results - last 24 hr 11/06/21 11/06/21 11/06/21 22:52 22:54 22:54 WBC 8.8 RBC 4.28 L Hgb 13.4 Hct 39.1 L MCV 91.4 MCH 31.3 MCHC 34.3 RDW Std Deviation 47.9 H RDW Coeff of Peggy 14.2 Plt Count 158 MPV 9.8 Immature Gran % (Auto) 1.200 H Neut % (Auto) 73.3 H Lymph % (Auto) 12.6 L [place] % (Auto) 11.0 H Eos % (Auto) 1.7 Baso % (Auto) 0.2 Absolute Neuts (auto) 6.5 Absolute Lymphs (auto) 1.11 Nucleated RBC % 0 Sodium 143 Potassium 4.1 Chloride 114 H Carbon Dioxide 24.0 Anion Gap 5 BUN 32 H Creatinine 1.45 H Estim Creat Clear Calc 48.31 Est GFR (MDRD) Af Amer 61 Est GFR (MDRD) Non-Af 50 L BUN/Creatinine Ratio 22.1 H Glucose 67 L Calcium 9.1 Magnesium 1.9 Total Bilirubin 0.30 Direct Bilirubin 0.12 AST 36 ALT 32 Alkaline Phosphatase 52 Total Protein 6.5 Albumin 3.1 L Globulin 3.4 POC Glucose 67 L 11/06/21 11/07/21 23:48 00:47 WBC RBC Hgb Hct MCV MCH MCHC RDW Std Deviation RDW Coeff of Peggy Plt Count MPV Immature Gran % (Auto) Neut % (Auto) Lymph % (Auto) [place] % (Auto) Eos % (Auto) Baso % (Auto) Absolute Neuts (auto) Absolute Lymphs (auto) Nucleated RBC % Sodium Potassium Chloride Carbon Dioxide Anion Gap BUN Creatinine Estim Creat Clear Calc Est GFR (MDRD) Af Amer Est GFR (MDRD) Non-Af BUN/Creatinine Ratio Glucose Calcium Magnesium Total Bilirubin Direct Bilirubin AST ALT Alkaline Phosphatase Total Protein Albumin Globulin POC Glucose 124 H 172 H Discharge Plan Triage Chief Complaint: Hypoglycemia ED Provider: Yassine Lopez Dx/Rx/DC Orders Clinical Impression: Hypoglycemia, Diabetes, Essential hypertension Instructions: Hypoglycemia (Low Blood Sugar), ED Diabetic Insulin Reaction Prescriptions: No Action levothyroxine 100 mcg capsule 100 mcg capsule 100 mcg PO QDAY insulin glargine 100 unit/mL (3 mL) insulin pen 36 unit SC DAILY insulin aspart U-100 100 unit/mL (3 mL) insulin pen See Rx Instructions SC TIDCM Rx Instructions: 30 units with meal plus SSI subcut 3 times daily with meals; cholecalciferol (vitamin D3) 125 mcg (5,000 unit) capsule 125 mcg PO DAILY carvedilol 25 mg tablet 25 mg PO BID Qty: 180 3RF aspirin 81 MG tablet,delayed release (DR/EC) 81 mg PO DAILY Label Comments: BLOOD THINNER pravastatin 80 MG tablet 80 mg PO QHS Label Comments: CHOLESTEROL fexofenadine-pseudoephedrine 1 TAB.SR tablet extended release 24 hr 1 tab.sr PO DAILY Label Comments: DIRECTED insulin glargine 100 unit/mL (3 mL) Insulin Pen 36 unit SUBCUT QPM acetaminophen [Tylenol Extra Strength] 500 mg tablet 1,000 mg PO Q6H PRN (Reason: pain) Qty: 20 0RF Primary Care Provider: Nathen Chang Referrals: Nathen Chang MD [Primary Care Provider] - Activity Restrictions/Additional Instructions: Please return to the ER should he have any further concerns Disposition Disposition: Home, Self Care Discharge Date/Time: 11/07/21 01:15
[2021-11-07 01:06] LABS: Bedside Glucose 172 mg/dL (74-106)
[2021-11-07 01:13] VITALS: BP 148/72; PULSE 74; RESP 16; O2SAT 95
== END 2021-11-07 01:15 | disposition home or self-care (01) ==
PROVIDERS: Emergency Provider Emergency Medicine; PCP Family Medicine; Visit Provider Emergency Medicine
DX: E11.649 Type 2 diabetes mellitus with hypoglycemia without coma (principal); E11.22 Type 2 diabetes mellitus with diabetic chronic kidney disease; Z79.4 Long term (current) use of insulin; E78.5 Hyperlipidemia, unspecified; I12.9 Hypertensive chronic kidney disease with stage 1 through stage 4 chronic kidney disease, or unspecified chronic kidney disease; F32.A Depression, unspecified; E66.9 Obesity, unspecified; I25.10 Atherosclerotic heart disease of native coronary artery without angina pectoris; N18.9 Chronic kidney disease, unspecified; Z79.82 Long term (current) use of aspirin; Z79.899 Other long term (current) drug therapy; Z87.891 Personal history of nicotine dependence; Z95.0 Presence of cardiac pacemaker
CPT/HCPCS: 80048; 80076; 82962; 83735; 85025; 87428; 99284; A4216

== ENCOUNTER 2022-02-02 22:30 | Observation (INO) | payer MEDICARE, SELFPAY ==
[2022-02-02] VITALS (7 sets, daily range): BP systolic 147–177; BP diastolic 79–107; PULSE 63–83; RESP 16–21; TEMP 36.6–36.8; O2SAT 93–95; BMI 31.0; BMI 24.0
--- NOTE | 2022-02-02 22:31 | CT_ITS ---
EXAM: CT brain without IV contrast. HISTORY: Neuro deficit, acute, stroke suspected TECHNIQUE: No intravenous contrast. A radiation dose optimization technique was used for this scan. COMPARISON: None. LIMITATIONS: None. BRAIN: Mild involutional change. Moderate low attenuation bilaterally within the deep white matter, likely secondary to chronic microvascular ischemia. VENTRICLES: No hydrocephalus. EXTRA-AXIAL SPACES: No acute hemorrhage. CALVARIUM/SKULL BASE: No acute fracture. FACE/SINUSES: The left maxillary sinus is opacified. SOFT TISSUES: Normal. OTHER: None. CONCLUSION: No acute intracranial abnormality. N.B. : The above Results were Read Back by Haresh Forbes MD to Fernandez Dukes MD, and understanding confirmed on 02/02/2022 22:46:22 (ET). Electronically Signed: Haresh Forbes MD at 22:46 EDT , CT/STROKE Brain/Head without Cont IMPRESSION: undefined
--- NOTE | 2022-02-02 22:31 | EKG12_ITS ---
Test Reason : STROKE Blood Pressure : / mmHG Vent. Rate : 064 BPM Atrial Rate : 064 BPM P-R Int : 148 ms QRS Dur : 118 ms QT Int : 456 ms P-R-T Axes : -04 -53 -18 degrees QTc Int : 470 ms Normal sinus rhythm Right bundle branch block Left anterior fascicular block Bifascicular block Inferior infarct , age undetermined Abnormal ECG Confirmed by JUANCHO ARCE, JAMES ([id number]), editor at large ADÁN CHANCE ([id number]) on 02/04/2022 1:08:25 PM Referred By: TAVARES Confirmed By:JAMES DAWKINS MD
--- NOTE | 2022-02-02 22:31 | RAD_ITS ---
INDICATION: Neuro deficit, acute, stroke suspected EXAMINATION: Frontal view of the chest COMPARISON: Chest x-ray from September 22, 2018. FINDINGS: Frontal view of the chest was obtained. Suboptimal inspiration. A pacing device projects over the left hemithorax. The cardiac silhouette is not enlarged. No confluent airspace disease. No pneumothorax. RAD/Chest 1 View IMPRESSION: No acute pulmonary disease. Electronically Signed: Haresh Forbes MD at 0:01 EDT ,
--- NOTE | 2022-02-02 22:32 | CT_ITS ---
EXAM: CT angiogram brain. HISTORY: Neuro deficit, acute, stroke suspected TECHNIQUE: CTA Head and Neck W/ Contrast Injection (and W/O Contrast Images if performed). Multiplanar reconstructions were obtained. A radiation dose optimization technique was used for this scan. COMPARISON: None. LIMITATIONS: None. DISTAL CAROTID ARTERIES: No significant stenosis. ANTERIOR CEREBRAL ARTERIES: No significant stenosis. MIDDLE CEREBRAL ARTERIES: No significant stenosis. POSTERIOR CEREBRAL ARTERIES: No significant stenosis. BASILAR ARTERY: No significant stenosis. OTHER: None. CONCLUSION: No aneurysm or significant stenosis. EXAM: CT angiogram neck. HISTORY: Neuro deficit, acute, stroke suspected TECHNIQUE: CTA Head and Neck W/ Contrast Injection (and W/O Contrast Images if performed). Multiplanar reconstructions were obtained. A radiation dose optimization technique was used for this scan. COMPARISON: None. LIMITATIONS: Motion artifact. CAROTID ARTERIES: Atherosclerotic calcification of the carotid bulbs bilaterally. No significant stenosis. VERTEBRAL ARTERIES: No significant stenosis. BONES/SOFT TISSUES: No acute fracture. OTHER: None. CONCLUSION: No significant stenosis. N.B. : The above Results were Read Back by Haresh Forbes MD to Fernandez Dukes MD, and understanding confirmed on 02/02/2022 23:10:07 (ET). Electronically Signed: Haresh Forbes MD at 23:10 EDT , CT/STROKE CTA Head AND Neck W/Con IMPRESSION: undefined
--- NOTE | 2022-02-02 22:32 | EDS_ITS ---
HPI History of Present Illness Chief Complaint: Neuro S/Sx Detail of Chief Complaint: Mental status change and difficulty with speech Informant: patient, family and EMS Narrative Narrative: Patient presents the emergency department via EMS with complaints of possible stroke. Approximately 45 minutes prior to arrival in the emergency department significant other noted that patient was confused and could not speak. Per EMS patient could not repeat phrases and did not know the year or the president and as they were coming to the ER he became more alert. Patient denies recent illness. He denies headache. He denies chest pain. Patient denies focal weakness currently. He denies paresthesias. 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) Solitary kidney Sustained ventricular tachycardia Ventricular fibrillation Home Medications aspirin 81 mg tablet,delayed release 81 mg PO DAILY 01/20/16 [History Last Taken Unknown] fexofenadine-pseudoephedrine ER 180 mg-240 mg tablet,ext.release 24 hr 1 tab.sr PO DAILY 01/20/16 [History Last Taken Unknown] pravastatin 80 mg tablet 80 mg PO QHS 01/20/16 [History Last Taken Unknown] levothyroxine 100 mcg capsule 100 mcg PO QDAY 08/20/17 [History Last Taken 12/22/19] insulin aspart U-100 100 unit/mL (3 mL) subcutaneous pen See Rx Instructions subcut TIDCM 02/24/20 [History Last Taken Unknown] insulin glargine 100 unit/mL (3 mL) subcutaneous pen 36 unit subcut DAILY 02/24/20 [History Last Taken Unknown] cholecalciferol (vitamin D3) 125 mcg (5,000 unit) capsule 125 mcg PO DAILY 01/15/21 [History Last Taken Unknown] acetaminophen 500 mg tablet (Tylenol Extra Strength) 1,000 mg PO Q6H PRN pain #20 tabs 10/22/21 [Rx Last Taken Unknown] insulin glargine 100 unit/mL (3 mL) subcutaneous pen 36 unit subcut QPM 10/22/21 [History Last Taken Unknown] carvedilol 25 mg tablet 25 mg PO BID #180 tabs 11/27/21 [Rx Last Taken Unknown] Allergy/AdvReac Type Severity Reaction Status Date / Time amiodarone AdvReac Severe significant Verified 10/22/21 18:28 effect on lung function per PFT 09/19/17 Family History Father Colon cancer Surgical History History of electrophysiologic study (10/21/12) History of implantable cardiac defibrillator (ICD) (04/12/12) History of left heart catheterization (01/21/16) Hx of colonoscopy Social History Smoking Status: Former smoker ROS ROS ED Review of Systems ROS Unobtainable: other Constitutional Constitutional ED: Reports lethargy; Denies chills, fever(s), sweats or weight loss Eyes Eyes: Denies blurry vision, change in vision or diplopia ENT ENT ED: Denies rhinorrhea or sore throat Cardiovascular Cardiovascular: Denies chest pain, orthopnea or racing heartbeat Respiratory/Chest Respiratory/Chest: Denies cough, dyspnea, dyspnea on exertion, orthopnea or sputum Gastrointestinal Gastrointestinal: Denies abdominal pain, diarrhea, nausea or vomiting Genitourinary Genitourinary ED: Denies dysuria, hematuria or urinary frequency Musculoskeletal Musculoskeletal: Denies arthralgias, back pain, myalgias or neck pain Integumentary Denies abscess, Abrasions or rash Neurologic Neurologic: Reports other Details: Confusion, difficulty with speech ; Denies headache(s) or weakness Psychiatric Psychiatric: Denies anxiety, depression or suicidal thoughts Endocrine Endocrinology: Denies polydipsia, polyphagia or polyuria Hematologic/Lymphatic Hematologic/Lymphatic: Denies easy bleeding, easy bruising or lymphadenopathy Allergic/Immunologic Allergic/Immunologic ED: Denies mouth swelling, tongue swelling or urticaria EXAM Physical Exam Const Vital Signs: 02/02/22 22:43 02/02/22 22:51 02/02/22 22:51 Temperature 97.8 F 97.8 F Temperature Source Temporal Temporal Pulse Rate 70 63 Respiratory Rate 16 18 Blood Pressure 177/106 H 170/79 H Blood Pressure Mean 129 109 Pulse Ox 95 95 Oxygen Delivery Method Room Air Room Air Room Air 02/02/22 22:30 02/02/22 23:01 Temperature 97.8 F Temperature Source Temporal Pulse Rate 79 83 Respiratory Rate 16 19 H Blood Pressure 177/107 H 157/83 H Blood Pressure Mean 130 107 Pulse Ox 93 93 Oxygen Delivery Method Room Air Room Air Positive well nourished and well developed General Appearance ED: well developed and NAD HEENT Reports TM's clear and moist mucous membranes normocephalic and atraumatic; Negative for trauma or tenderness Tympanic Membrane ED: Yes TM's clear Eyes PERRL and EOMs intact bilaterally General Eye ED: Negative for pale conjunctiva or scleral icterus Neck no lymphadenopathy, supple and no JVD General: Negative for tenderness Chest Wall inspection of chest normal and palpation of chest normal Chest: Negative for tenderness Resp normal respiratory effort and clear to auscultation bilaterally Effort and Inspection: Negative for respiratory distress or pain with movement Auscultation: Negative for rhonchi, wheezes or diminished lung sounds Cardio regular rate, regular rhythm, S1 normal heart sound, S2 normal heart sound and no murmurs Peripheral Pulses: pulses 2+ throughout GI normal to inspection, nondistended, normoactive bowel sounds, soft to palpation, non-tender, non-distended and no masses Back/Spine no CVA tenderness and no thoracic nor lumbar tenderness Extremity normal to inspection General Extremety ED: Negative for edema General Extremity: Negative for edema Neuro oriented x3, CN's II-XII intact bilaterally, no sensory deficits noted and gait normal Neuro Narrative: NIH stroke scale on arrival 0. No obvious focal deficits noted. Sensorium / Orientation: awake, alert, oriented to person, oriented to place and oriented to time Motor Exam: strength 5/5 throughout and strength abnormal Psych mental status grossly normal Skin no rashes or lesions noted and no wounds MDM MDM MDM Narrative Medical decision making narrative: Patient had a stroke team called prior to arrival in the emergency department. Patient was initially evaluated on the cot and sent to the CT scanner. On arrival most of his symptoms resolved and his NIH was 0. Patient was seen by the stroke neurologist and I was asked to treat patient as a TIA work-up. CT brain was unremarkable and CTA head and neck essentially unremarkable. Lab work-up was unremarkable. Case discussed with hospitalist will evaluate patient for admission. Lab Data Labs: Laboratory Results - last 24 hr 02/02/22 02/02/22 02/02/22 22:25 22:25 22:25 WBC 7.5 RBC 5.30 Hgb 16.1 Hct 46.2 MCV 87.2 MCH 30.4 MCHC 34.8 RDW Std Deviation 39.6 RDW Coeff of Peggy 12.5 Plt Count 176 MPV 10.3 Immature Gran % (Auto) 0.500 Neut % (Auto) 57.2 Lymph % (Auto) 28.6 [place] % (Auto) 10.9 H Eos % (Auto) 2.0 Baso % (Auto) 0.8 Absolute Neuts (auto) 4.3 Absolute Lymphs (auto) 2.14 Nucleated RBC % 0 PT 13.6 INR 1.1 APTT 32.2 Sodium 137 Potassium 3.9 Chloride 100 Carbon Dioxide 28.0 Anion Gap 9 BUN 30 H Creatinine 2.19 H Estim Creat Clear Calc 31.50 Est GFR (MDRD) Af Amer 38 L Est GFR (MDRD) Non-Af 31 L BUN/Creatinine Ratio 13.7 Glucose 131 H Calcium 10.4 H Troponin I High Sens 35 Radiography Diagnostic Testing: Clinical Impression(s) from Imaging Studies Brain CT 02/02/22 22:31 IMPRESSION: undefined ADDENDUM: 02/02/22 2253 IMPRESSION: undefined Head/Neck CTA 02/02/22 22:32 IMPRESSION: undefined ADDENDUM: 02/02/227 IMPRESSION: undefined EKG Initial EKG: Attestation: I personally reviewed and interpreted this EKG as follows: Comments: Sinus rhythm with rate 64 bpm with right bundle branch block and left anterior fascicular block. Patient also with old inferior infarct noted. Discharge Plan Triage Chief Complaint: Neuro S/Sx ED Provider: Fernandez Dukes Dx/Rx/DC Orders Clinical Impression: Brain TIA, History of hypertension, Chronic kidney disease, History of diabetes mellitus Prescriptions: No Action levothyroxine 100 mcg capsule 100 mcg capsule 100 mcg PO QDAY insulin glargine 100 unit/mL (3 mL) insulin pen 36 unit SC DAILY insulin aspart U-100 100 unit/mL (3 mL) insulin pen See Rx Instructions SC TIDCM Rx Instructions: 30 units with meal plus SSI subcut 3 times daily with meals; cholecalciferol (vitamin D3) 125 mcg (5,000 unit) capsule 125 mcg PO DAILY aspirin 81 MG tablet,delayed release (DR/EC) 81 mg PO DAILY Label Comments: BLOOD THINNER pravastatin 80 MG tablet 80 mg PO QHS Label Comments: CHOLESTEROL fexofenadine-pseudoephedrine 1 TAB.SR tablet extended release 24 hr 1 tab.sr PO DAILY Label Comments: DIRECTED insulin glargine 100 unit/mL (3 mL) Insulin Pen 36 unit SUBCUT QPM acetaminophen [Tylenol Extra Strength] 500 mg tablet 1,000 mg PO Q6H PRN (Reason: pain) Qty: 20 0RF carvedilol 25 mg tablet 25 mg PO BID Qty: 180 3RF Primary Care Provider: Nathen Chang Referrals: Nathen Chang MD [Primary Care Provider] - Disposition Disposition: Acute Care Hospital [facility]
[2022-02-02 22:45] LABS: Absolute Lymphocyte Count 2.14 X10^3/uL (0.83-4.51); Absolute Neutrophil Count 4.3 X10^3/uL (2.0-7.7); Basophil# 0.06 X10^3/uL; Basophil% 0.8 % (0-1); Eosinophil# 0.15 X10^3/uL; Hematocrit 46.2 % (40-54); Hemoglobin 16.1 g/dL (13.0-16.5); Lymphocyte # 2.14 X10^3/ul (0.83-4.51); Lymphocyte % 28.6 % (19-41); Mean Corp Hgb Conc 34.8 g/dL (32-36); Mean Corpuscular Hgb 30.4 pg (27.0-32.0); Mean Corpuscular Volume 87.2 fL (80-94); Mean Platelet Vol. 10.3 fl (6.2-12.0); Monocyte# 0.82 X10^3/uL; Monocyte% 10.9 % (0-10); NRBC Flagged by Analyzer 0 % (0-5); Neutrophil # 4.28 X10^3/uL (2.7-7.7); Neutrophil % 57.2 % (47-70); Platelet Count 176 K/mm3 (150-450); RBC Distribution Width CV 12.5 % (11.6-14.6); RBC Distribution Width SD 39.6 fl (35.1-43.9); White Blood Count 7.5 K/mm3 (4.4-11.0)
[2022-02-02 22:58] LABS: International Normalized Ratio 1.1; Prothrombin Time (Protime)PT. 13.6 SECONDS (11.7-14.9)
[2022-02-02 22:59] LABS: Partial Thromboplast Time 32.2 Seconds (24.1-36.2)
[2022-02-02 23:03] LABS: Anion Gap 9 (5-15); BUN 30 mg/dL (7-18); BUN/Creat Ratio 13.7 RATIO (10-20); Calcium,Total 10.4 mg/dL (8.5-10.1); Chloride 100 mmol/L (98-107); Creatinine, Serum 2.19 mg/dL (0.70-1.30); EST Glomerular Filtration Rate 31 mL/min (>60); Est Glom Filt Rate - Afr Amer 38 mL/min (>60); Glucose 131 mg/dL (74-106); Potassium 3.9 mmol/L (3.5-5.1); Sodium Level 137 mmol/L (136-145); Troponin-I HS 35 pg/mL (3.0-78.0)
--- NOTE | 2022-02-02 23:30 | HP.PCM.HOS_ITS ---
HPI - General General Date of Service: 02/02/22 Chief Complaint: confusion HPI Narrative PARK MARISCAL, is a 76 M who presents with confusion and difficulty speaking. Patient did not know the year and the president was but once he got to the emergency room he became more coherent. Patient had a head CT and CTA of the head neck and was evaluated by [facility] teleneurology, they recommended an MRI of his pacemaker defibrillator is compatible and a TTE.'s in the prior he was having a cramping in his legs but that is since resolved. Patient is no longer had any further confusion or difficulty speaking. 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) Solitary kidney Sustained ventricular tachycardia Ventricular fibrillation Home Medications aspirin 81 mg tablet,delayed release 81 mg PO DAILY 01/20/16 [History Last Taken Unknown] fexofenadine-pseudoephedrine ER 180 mg-240 mg tablet,ext.release 24 hr 1 tab.sr PO DAILY 01/20/16 [History Last Taken Unknown] pravastatin 80 mg tablet 80 mg PO QHS 01/20/16 [History Last Taken Unknown] levothyroxine 100 mcg capsule 100 mcg PO QDAY 08/20/17 [History Last Taken 12/22/19] insulin aspart U-100 100 unit/mL (3 mL) subcutaneous pen See Rx Instructions subcut TIDCM 02/24/20 [History Last Taken Unknown] insulin glargine 100 unit/mL (3 mL) subcutaneous pen 36 unit subcut DAILY 02/24/20 [History Last Taken Unknown] cholecalciferol (vitamin D3) 125 mcg (5,000 unit) capsule 125 mcg PO DAILY 01/15/21 [History Last Taken Unknown] acetaminophen 500 mg tablet (Tylenol Extra Strength) 1,000 mg PO Q6H PRN pain #20 tabs 10/22/21 [Rx Last Taken Unknown] insulin glargine 100 unit/mL (3 mL) subcutaneous pen 36 unit subcut QPM 10/22/21 [History Last Taken Unknown] carvedilol 25 mg tablet 25 mg PO BID #180 tabs 11/27/21 [Rx Last Taken Unknown] Allergy/AdvReac Type Severity Reaction Status Date / Time amiodarone AdvReac Severe significant Verified 10/22/21 18:28 effect on lung function per PFT 09/19/17 Family History Father Colon cancer Surgical History History of electrophysiologic study (10/21/12) History of implantable cardiac defibrillator (ICD) (04/12/12) History of left heart catheterization (01/21/16) Hx of colonoscopy Social History Smoking Status: Former smoker ROS ROS Narrative All review of systems were negative except as mentioned above in the history of present illness and the other review of systems. Vital Signs Vital Signs Vital Signs: 02/02/22 22:43 02/02/22 22:51 02/02/22 22:51 Temperature 36.6 C 36.6 C Temperature Source Temporal Temporal Pulse Rate 70 63 Respiratory Rate 16 18 Blood Pressure 177/106 H 170/79 H Blood Pressure Mean 129 109 Pulse Ox 95 95 Oxygen Delivery Method Room Air Room Air Room Air 02/02/22 22:30 02/02/22 23:01 02/02/22 23:25 Temperature 36.6 C 36.8 C Temperature Source Temporal Temporal Pulse Rate 79 83 64 Respiratory Rate 16 19 H 17 Blood Pressure 177/107 H 157/83 H 147/89 H Blood Pressure Mean 130 107 108 Pulse Ox 93 93 93 Oxygen Delivery Method Room Air Room Air Room Air Weight Weight: 103.8 kg Body Mass Index (BMI) 31.0 Physical Exam Const alert, no apparent distress and average body habitus HEENT normocephalic, head/scalp atraumatic, hearing grossly normal bilaterally and moist oral mucous membranes Eyes PERRL and EOMs intact bilaterally Neck no lymphadenopathy and supple Resp normal respiratory effort, no retractions, no use of accessory muscles and clear to auscultation bilaterally Cardio regular rate, regular rhythm, S1 normal heart sound and S2 normal heart sound GI normal to inspection, nondistended, normoactive bowel sounds, soft to palpation, non-tender and non-distended Extremity normal to inspection and no clubbing, cyanosis or edema Neuro oriented x3, CN's II-XII intact bilaterally, moves all extremities and no focal motor deficits Sensorium / Orientation: awake, alert, oriented to person, oriented to place and oriented to time Coordination / Balance: [id number] test normal Speech: speech normal Psych affect normal Results Lab / Micro Data Attestation: I reviewed the patient's lab results. Result Diagrams: 02/02/22 22:25 02/02/22 22:25 Labs: Laboratory Results - last 24 hr 02/02/22 22:25: WBC 7.5, RBC 5.30, Hgb 16.1, Hct 46.2, MCV 87.2, MCH 30.4, MCHC 34.8, RDW Std Deviation 39.6, RDW Coeff of Peggy 12.5, Plt Count 176, MPV 10.3, Immature Gran % (Auto) 0.500, Neut % (Auto) 57.2, Lymph % (Auto) 28.6, [place] % (Auto) 10.9 H, Eos % (Auto) 2.0, Baso % (Auto) 0.8, Absolute Neuts (auto) 4.3, Absolute Lymphs (auto) 2.14, Nucleated RBC % 0 02/02/22 22:25: PT 13.6, INR 1.1, APTT 32.2 02/02/22 22:25: Sodium 137, Potassium 3.9, Chloride 100, Carbon Dioxide 28.0, Anion Gap 9, BUN 30 H, Creatinine 2.19 H, Estim Creat Clear Calc 31.50, Est GFR (MDRD) Af Amer 38 L, Est GFR (MDRD) Non-Af 31 L, BUN/Creatinine Ratio 13.7, Glucose 131 H, Calcium 10.4 H, Troponin I High Sens 35 EKG Initial EKG: Attestation: I personally reviewed and interpreted this EKG as follows: Prior EKG tracings: available for review EKG Rhythm Intrepretation: Sinus Rhythm (Right bundle branch block. No change from October 2021.) Radiology Impression Brain CT 02/02/22 22:31 IMPRESSION: undefined ADDENDUM: 02/02/222252 IMPRESSION: undefined Head/Neck CTA 02/02/22 22:32 IMPRESSION: undefined ADDENDUM: 02/02/227 IMPRESSION: undefined Assessment & Plan Assessment/Plan (1) Brain TIA: PLAN: Symptoms adequately resolved. Patient already on aspirin and will continue. Patient has a pacemaker/defibrillator placed in 2012. He has not had an MRI since then but it is unclear if this is an MRI compatible device. He does not have his card on him. I advised the patient to have someone bring that in to see if it is a device that is compatible with MRI. If not then the plan would be to have a follow-up CAT scan. Check echocardiogram PLAN: Plan Chronic conditions * Cardiomyopathy: EF of 47% from 2D echocardiogram from June 03, 2018. Continue with carvedilol * Hypothyroidism: Continue levothyroxine * Hyperlipidemia: Continue with pravastatin * Diabetes mellitus type 2: Insulin-dependent. Continue with insulin glargine, scheduled log and sliding scale insulin. VTE prophylaxis: Not indicated given current observation status. CODE STATUS: Addressed with the patient. Patient wishes to be DNR Comfort Care arrest. Charges/Coding Visit Charges OBSV E&M: 88189 Initial observation care L3
--- NOTE | 2022-02-02 23:53 | ECHOD_ITS ---
Version 2 Reason For Study: TIA/CVA Procedure This was a 2D Doppler, Color Flow transthoracic echocardiogram. Exam performed portable in patient room. Left Ventricle Normal LV size. The estimated ejection fraction is 55 %. Mild segmental systolic dysfunction (see wall motion). Infero-Basal: Aneurysmal. Posterior-Basal: Aneurysmal. Mid-Posterior: Hypokinetic. Mid-Inferior: Hypokinetic. The rest of the wall segments are normal. Right Ventricle Normal RV size. ICD or pacer leads identified within the right ventricle. Normal systolic function. Atria The left atrium is mildly enlarged. Normal right atrium. Bubble contrast study negative for right to left interatrial shunt. Mitral Valve Normal mitral valve. Tricuspid Valve Normal tricuspid valve. Aortic Valve Normal aortic valve. Trisinus/trileaflet aortic valve. Pulmonic Valve Normal pulmonic valve. Great Vessels Normal aortic root. The pulmonary artery is normal size. Normal inferior vena cava. Pericardium/Pleural No pericardial effusion. Medication Performed a rapid injection of agitated mix of 9 cc saline and 1cc air to assess for atrial septal defect. MMode/2D Measurements & Calculations LVIDd: 5.6 cm IVSd: 1.6 cm Ao root diam: 3.8 cm LVIDs: 4.7 cm LVPWd: 0.65 cm FS: 15.5 % LAV(MOD-bp): 77.0 ml LA A4 area: 25.8 cm2 LA dimension(2D): 4.7 cm LAV(MOD-bp) Indexed: 38.1 ml/m2 LAV(MOD-sp2): 63.8 ml LAV(MOD-sp4): 91.5 ml Time Measurements MV dec time: 0.42 sec Doppler Measurements & Calculations MV E max tony: 41.4 cm/sec Lat Peak E' Tony: 4.0 cm/sec Med Peak E' Tony: 5.0 cm/sec MV A max tony: 103.6 cm/sec E/E' lat: 10.4 E/E' med: 8.2 MV E/A: 0.40 MV dec slope: 158.9 cm/sec2 Ao V2 max: 127.6 cm/sec LV V1 max: 101.0 cm/sec Ao max P.6 mmHg LV V1 max P.1 mmHg Ao V2 mean: 92.2 cm/sec Ao mean P.9 mmHg Ao V2 VTI: 29.1 cm PA V2 max: 123.4 cm/sec ECHO/Echo Complete Interpretation Summary Normal LV size. The estimated ejection fraction is 55 %. Mild segmental systolic dysfunction (see wall motion). The left atrium is mildly enlarged. Trisinus/trileaflet aortic valve. Bubble contrast study negative for right to left interatrial shunt. Compared to previous study, the left ventricular systolic function is the same. . Ordering Physician: Nathen Yen Referring Physician: Nathen Chang Performed By: Megha Interiano, VENUS, RVT
[2022-02-03] VITALS (12 sets, daily range): BP systolic 149–160; BP diastolic 73–78; PULSE 61–79; RESP 15–18; TEMP 36.2–37.1; O2SAT 92–96; BMI 24.0
[2022-02-03] LABS: Troponin-I HS 34 pg/mL (3.0-78.0)
[2022-02-03] MEDS: Levothyroxine 100 MCG Tablet PO (05:44)
[2022-02-03 07:18] LABS: Anion Gap 9 (5-15); BUN 30 mg/dL (7-18); BUN/Creat Ratio 15.9 RATIO (10-20); Calcium,Total 9.2 mg/dL (8.5-10.1); Chloride 98 mmol/L (98-107); Cholesterol 135 mg/dL (200); Creatinine, Serum 1.89 mg/dL (0.70-1.30); EST Glomerular Filtration Rate 37 mL/min (>60); Est Glom Filt Rate - Afr Amer 45 mL/min (>60); Glucose 354 mg/dL (74-106); High Density Lipoprotein 39 mg/dL; Potassium 4.2 mmol/L (3.5-5.1); Sodium Level 132 mmol/L (136-145); Thyroid Stim Hormone (TSH) 0.74 uIU/mL (0.358-3.74); Triglycerides 247 mg/dL; Very Low Density Lipoprotein 49 mg/dL (5-40)
--- NOTE | 2022-02-03 08:46 | PN.HOSP_ITS ---
Objective Data Objective Data Vital Signs: Vital Signs Temp Pulse Resp BP Pulse Ox O2 Del Method 97.4 F L 62 18 157/77 H 96 Room Air 02/03/22 08:15 02/03/22 08:15 02/03/22 08:15 02/03/22 08:15 02/03/22 08:15 02/03/22 08:39 Oxygen Delivery Method Room Air Weight: 177 lb Body Mass Index (BMI) 24.0 Intake & Output: Intake and Output for Last 24 Hours 02/01/22 02/02/22 02/03/22 23:59 23:59 23:59 Output Total 0 / 0 Balance 0 / 0 Lab / Micro Data Result Diagrams: 02/02/22 22:25 02/03/22 04:44 Labs: Laboratory Results - last 24 hr 02/02/22 22:25: WBC 7.5, RBC 5.30, Hgb 16.1, Hct 46.2, MCV 87.2, MCH 30.4, MCHC 34.8, RDW Std Deviation 39.6, RDW Coeff of Peggy 12.5, Plt Count 176, MPV 10.3, Immature Gran % (Auto) 0.500, Neut % (Auto) 57.2, Lymph % (Auto) 28.6, [place] % (Auto) 10.9 H, Eos % (Auto) 2.0, Baso % (Auto) 0.8, Absolute Neuts (auto) 4.3, Absolute Lymphs (auto) 2.14, Nucleated RBC % 0 02/02/22 22:25: PT 13.6, INR 1.1, APTT 32.2 02/02/22 22:25: Sodium 137, Potassium 3.9, Chloride 100, Carbon Dioxide 28.0, Anion Gap 9, BUN 30 H, Creatinine 2.19 H, Estim Creat Clear Calc 31.50, Est GFR (MDRD) Af Amer 38 L, Est GFR (MDRD) Non-Af 31 L, BUN/Creatinine Ratio 13.7, Glucose 131 H, Calcium 10.4 H, Troponin I High Sens 35 02/02/22 23:34: Troponin I High Sens 34 02/03/22 04:44: Sodium 132 L, Potassium 4.2, Chloride 98, Carbon Dioxide 25.0, Anion Gap 9, BUN 30 H, Creatinine 1.89 H, Estim Creat Clear Calc 36.50, Est GFR (MDRD) Af Amer 45 L, Est GFR (MDRD) Non-Af 37 L, BUN/Creatinine Ratio 15.9, Glucose 354 H, Calcium 9.2, Triglycerides 247 H, Cholesterol 135, LDL Cholesterol 47, VLDL Cholesterol 49 H, HDL Cholesterol 39 L, TSH 0.74 Radiography Diagnostic Testing: Radiology Impression Brain CT 02/02/22 22:31 IMPRESSION: undefined ADDENDUM: 02/02/223 IMPRESSION: undefined Chest X-Ray 02/02/22 22:31 IMPRESSION: No acute pulmonary disease. Electronically Signed: Haresh Forbes MD at 0:01 EDT , Head/Neck CTA 02/02/22 22:32 IMPRESSION: undefined ADDENDUM: 02/02/222316 IMPRESSION: undefined Physical Exam Narrative Patient was admitted with confusion and difficulty speaking. Patient did not know the year and the president. Followed by the time patient came to ED. CT and CTA head was evaluated by [facility] neurologist recommended MRI brain if compatible with pacemaker defibrillator and TTE. Assessment & Plan Assessment/Plan (1) Brain TIA: PLAN: Symptoms adequately resolved. Patient already on aspirin and will continue. Patient has a pacemaker/defibrillator placed in 2012. He has not had an MRI s jessica then but it is unclear if this is an MRI compatible device. He does not have his card on him. I advised the patient to have someone bring that in to see if it is a device that is compatible with MRI. If not then the plan would be to have a follow-up CAT scan. Check echocardiogram PLAN: Plan Chronic conditions * Coronary artery disease, ischemic cardiomyopathy: EF of 47% from 2D echocardiogram from June 03, 2018. Continue with carvedilol * Hypothyroidism: Continue levothyroxine * Hyperlipidemia: Continue with pravastatin * Diabetes mellitus type 2: Insulin-dependent. Continue with insulin glargine, scheduled log and sliding scale insulin. VTE prophylaxis: Not indicated given current observation status. CODE STATUS: Addressed with the patient. Patient wishes to be DNR Comfort Care arrest.
[2022-02-03 09:00] LABS: Bedside Glucose 386 mg/dL (74-106)
[2022-02-03] MEDS: Insulin Lispro 100 UNIT/ML INSULN.PEN 30 UNIT SC ×2 (09:46→12:29)
[2022-02-03] MEDS: Insulin Lispro 100 UNIT/ML INSULN.PEN SC ×2 (09:46→12:30)
[2022-02-03] MEDS: Carvedilol 25 MG Tablet PO (09:48)
[2022-02-03] MEDS: Cholecalciferol (Vit D3) 125 MCG CAPSULE (5,000 UNITS) PO (09:48)
[2022-02-03] MEDS: Aspirin E.C. 81 MG Tablet PO (09:48)
[2022-02-03] MEDS: Insulin Glargine-YFGN 100 UNIT/ML Pen 36 UNIT SC (09:49)
--- NOTE | 2022-02-03 11:42 | DCINST_ITS ---
Discharge Instructions Diet Discharge Diet: Low fat / Low cholesterol, 1800 Calorie Control Diet and 2000 mg Sodium Diet Activity Discharge Activity: Return to Normal Activity Weight Bearing Status: Weight bearing as tolerated Dressing / Incision Call your doctor if you observe: Fever of 101 or Higher, Coldness, Increased Pain, Numbness or Tingling, Change in Color, Inability to urinate, Inability to have a bowel movement, Shortness of breath, Dizziness, Fainting spells, Swelling in the ankles, Chest pain, Prolonged hiccupping, Increased palpitations (irregular heartbeat), Calf discomfort and Uncontrolled pain Follow Up Care Test Results: Test results from this visit will be discussed in further detail at your follow- up appointment, if applicable. Discharge Plan Admission Admit Date/Time: 02/02/22 23:25 Primary Reason for Your Visit: TIA like symtoms, mild language deficit Attending Provider: Eren Mendez Primary Care Provider: Nathen Chang Consulting Providers: Nathen Yen Discharge Orders/Prescriptions Prescriptions: New insulin lispro [Humalog KwikPen Insulin] 100 unit/mL Insulin Pen 30 unit subcut TIDAC Qty: 0 0RF rosuvastatin 20 mg tablet 20 mg PO DAILY Qty: 30 2RF Continued levothyroxine 100 mcg capsule 100 mcg capsule 100 mcg PO QDAY insulin aspart U-100 100 unit/mL (3 mL) insulin pen See Rx Instructions SC TIDCM Rx Instructions: 30 units with meal plus SSI subcut 3 times daily with meals; cholecalciferol (vitamin D3) 125 mcg (5,000 unit) capsule 125 mcg PO DAILY aspirin 81 MG tablet,delayed release (DR/EC) 81 mg PO DAILY Label Comments: BLOOD THINNER insulin glargine 100 unit/mL (3 mL) Insulin Pen 36 unit SUBCUT QPM acetaminophen [Tylenol Extra Strength] 500 mg tablet 1,000 mg PO Q6H PRN (Reason: pain) Qty: 20 0RF carvedilol 25 mg tablet 25 mg PO BID Qty: 180 3RF Changed insulin glargine 100 unit/mL (3 mL) insulin pen 45 unit SC DAILY Qty: 15 0RF Held fexofenadine-pseudoephedrine 1 TAB.SR tablet extended release 24 hr 1 tab.sr PO DAILY Hold Instructions: Advised to take it as needed for nasal congestion, cold symptoms/allergic rhinitis Label Comments: DIRECTED Discontinued pravastatin 80 MG tablet 80 mg PO QHS Label Comments: CHOLESTEROL Referrals / Follow Up: Nathen Chang MD [Primary Care Provider] - Disposition Disposition (needs filled in before D/C Order can be placed): Home, Self Care
[2022-02-03 12:05] LABS: Bedside Glucose 486 mg/dL (74-106)
--- NOTE | 2022-02-03 13:13 | CT_ITS ---
STUDY: CT BRAIN WITHOUT CONTRAST REASON FOR EXAM: Male, 76 years old. stroke RADIATION DOSAGE (If Supplied By Facility): CTDIvol = ( 44.99 ) mGy, DLP = ( 796.11 ) mGycm TECHNIQUE: Transaxial CT imaging of the brain was performed without administration of intravenous contrast material. Individualized dose optimization techniques were used for this CT. COMPARISON: 02/03/2020 FINDINGS: Normal soft tissue structures. Normal calvarium. There is mild cerebral atrophy with widening of the extra-axial spaces and ventricular dilatation. There are areas of decreased attenuation within the white matter tracts of the supratentorial brain, consistent with microvascular disease changes. Normal basal ganglia and thalami. Normal brainstem. Normal cerebellum. There is no intracranial hemorrhage. There are no findings of an acute ischemic infarction. Complete opacification of the left maxillary sinus consistent with sinusitis. CT/Brain/Head without Contrast IMPRESSION: Chronic involutional changes of the brain. Electronically Signed: Tate Chand MD at 14:10 EDT ,
--- NOTE | 2022-02-03 14:50 | DS.PCM_ITS ---
Providers Date of Admission: 02/02/22 Date of Discharge: 02/03/22 Primary Care Physician: Dr. Nathen Chang MD Reason For Visit: TIA Diagnosis Discharge Diagnosis (1) Brain TIA: Status: Acute Code(s): G45.9 - Transient cerebral ischemic attack, unspecified Medications at Discharge Home Medications aspirin 81 mg tablet,delayed release 81 mg PO DAILY heart health 01/20/16 fexofenadine-pseudoephedrine ER 180 mg-240 mg tablet,ext.release 24 hr 1 tab.sr PO DAILY allergies 01/20/16 levothyroxine 100 mcg capsule 100 mcg PO QDAY thyroid 08/20/17 insulin aspart U-100 100 unit/mL (3 mL) subcutaneous pen See Rx Instructions subcut TIDCM diabetes 02/24/20 cholecalciferol (vitamin D3) 125 mcg (5,000 unit) capsule 125 mcg PO DAILY vitamin 01/15/21 acetaminophen 500 mg tablet (Tylenol Extra Strength) 1,000 mg PO Q6H PRN pain #20 tabs 10/22/21 insulin glargine 100 unit/mL (3 mL) subcutaneous pen 36 unit subcut QPM diabetes 10/22/21 carvedilol 25 mg tablet 25 mg PO BID #180 tabs 11/27/21 insulin glargine 100 unit/mL (3 mL) subcutaneous pen 45 unit (0.45 mL) subcut DAILY #15 mL 02/03/22 insulin lispro 100 unit/mL subcutaneous pen (Humalog KwikPen (U-100) Insulin) 30 unit (0.3 mL) subcut TIDAC #0 mL 02/03/22 rosuvastatin 20 mg tablet 20 mg PO DAILY #30 tabs 02/03/22 Hospital Course Summary of Care Provided Hospital Course: 76-year-old male was admitted with confusion and difficulty finding words to explain himself. As per the , he just speech and sentences did not make sense. His verbal output was good. [facility] consult was done at that time of admission and advised MRI. CT head and neck does not show LVO or hemodynamically significant lesion. 1. Suspected brain TIA: Patient was admitted in PCU. Symptoms got resolved. Patient back to baseline. Patient on aspirin and pravastatin at home. Fasting profile shows increased triglyceride 247, VLDL 49, low HDL but LDL normal 47. Pravastatin 80 mg changed to rosuvastatin 20 mg daily. Patient has a pacemaker/defibrillator placed in 2012. cathodic protection technician did not find compatible with AICD wire/lead. Repeat CT head was done which did not show acute stroke. Patient performed normal on physical strength, 5/5 at major joints. No sensory deficit. No acute visual field deficit. Speech normal. Echo 55% with bubble contrast study negative. At time of discharge, patient had mild confusion and some trouble with word as reported by nurse. As patient cannot have MRI and CT head twice was negative, recommended outpatient follow-up with neurologist. Patient is on aspirin and high intensity statin as mentioned above. Wide fluctuation in glucose may be cause for confusion or trouble finding words. * Coronary artery disease, ischemic cardiomyopathy: EF of 47% from 2D echocardiogram from June 03, 2018. Continue with carvedilol. Repeat echo EF 55%. * Hypothyroidism: Continue levothyroxine * Hyperlipidemia: Changed to rosuvastatin * Diabetes mellitus type 2: Insulin-dependent. Patient blood sugar fluctuations as mentioned by . Glucose profile shows high and low glucose. Dose of long-acting insulin changed. Advised follow-up PCP CODE STATUS: Addressed with the patient. Patient wishes to be DNR Comfort Care arrest. Discharge medication reconciliation done. Discharge follow-up instructions completed. Discharge process discussed with the patient and all questions were answered to patient's satisfaction. Total time spent, exact 35 minutes on discharge meds reconciliation, examinat ion, coordination of care with nurses and ancillary staff, review of imaging and blood test and discussion with the patient on follow-up instructions. Clinical Impression(s) from Imaging Studies Brain CT 02/02/22 22:31 IMPRESSION: undefined ADDENDUM: 02/02/22 2253 IMPRESSION: undefined Chest X-Ray 02/02/22 22:31 IMPRESSION: No acute pulmonary disease. Head/Neck CTA 02/02/22 22:32 IMPRESSION: undefined ADDENDUM: 02/02/22 2317 IMPRESSION: undefined Echocardiogram 02/02/22 23:53 Interpretation Summary Normal LV size. The estimated ejection fraction is 55 %. Mild segmental systolic dysfunction (see wall motion). The left atrium is mildly enlarged. Trisinus/trileaflet aortic valve. Bubble contrast study negative for right to left interatrial shunt. Compared to previous study, the left ventricular systolic function is the same.. Ordering Physician: Nathen Yen Referring Physician: Nathen Chang Performed By: Megha Interiano, VENUS, RVT Brain CT 02/03/22 13:13 IMPRESSION: Chronic involutional changes of the brain. Electronically Signed: Tate Chand MD at 14:10 EDT , Weight / BMI Weight Weight: 177 lb Body Mass Index (BMI) 24.0 ABG / Lab / Microbiology Data Result Diagrams: 02/02/22 22:25 02/03/22 04:44 Laboratory: Laboratory Results - last 24 hr 02/02/22 22:25: WBC 7.5, RBC 5.30, Hgb 16.1, Hct 46.2, MCV 87.2, MCH 30.4, MCHC 34.8, RDW Std Deviation 39.6, RDW Coeff of Peggy 12.5, Plt Count 176, MPV 10.3, Immature Gran % (Auto) 0.500, Neut % (Auto) 57.2, Lymph % (Auto) 28.6, Owen % (Auto) 10.9 H, Eos % (Auto) 2.0, Baso % (Auto) 0.8, Absolute Neuts (auto) 4.3, Absolute Lymphs (auto) 2.14, Nucleated RBC % 0 02/02/22 22:25: PT 13.6, INR 1.1, APTT 32.2 02/02/22 22:25: Sodium 137, Potassium 3.9, Chloride 100, Carbon Dioxide 28.0, Anion Gap 9, BUN 30 H, Creatinine 2.19 H, Estim Creat Clear Calc 31.50, Est GFR (MDRD) Af Amer 38 L, Est GFR (MDRD) Non-Af 31 L, BUN/Creatinine Ratio 13.7, Glucose 131 H, Calcium 10.4 H, Troponin I High Sens 35 02/02/22 23:34: Troponin I High Sens 34 02/03/22 04:44: Sodium 132 L, Potassium 4.2, Chloride 98, Carbon Dioxide 25.0, Anion Gap 9, BUN 30 H, Creatinine 1.89 H, Estim Creat Clear Calc 36.50, Est GFR (MDRD) Af Amer 45 L, Est GFR (MDRD) Non-Af 37 L, BUN/Creatinine Ratio 15.9, Glucose 354 H, Calcium 9.2, Triglycerides 247 H, Cholesterol 135, LDL Cholesterol 47, VLDL Cholesterol 49 H, HDL Cholesterol 39 L, TSH 0.74 02/03/22 08:35: POC Glucose 386 H 02/03/22 11:15: POC Glucose 486 H* Radiography Diagnostic Testing: Radiology Impression Brain CT 02/02/22 22:31 IMPRESSION: undefined ADDENDUM: 02/02/222252 IMPRESSION: undefined Chest X-Ray 02/02/22 22:31 IMPRESSION: No acute pulmonary disease. Electronically Signed: Haresh Forbes MD at 0:01 EDT , Head/Neck CTA 02/02/22 22:32 IMPRESSION: undefined ADDENDUM: 02/02/222316 IMPRESSION: undefined Echocardiogram 02/02/22 23:53 Interpretation Summary Normal LV size. The estimated ejection fraction is 55 %. Mild segmental systolic dysfunction (see wall motion). The left atrium is mildly enlarged. Trisinus/trileaflet aortic valve. Bubble contrast study negative for right to left interatrial shunt. Compared to previous study, the left ventricular systolic function is the same.. Ordering Physician: Nathen Yen Referring Physician: Nathen Chang Performed By: Megha Interiano, RDCS, RVT Brain CT 02/03/22 13:13 IMPRESSION: Chronic involutional changes of the brain. Electronically Signed: Tate Chand MD at 14:10 EDT , D/C Instructions Discharge Diet: Low fat / Low cholesterol, 1800 Calorie Control Diet and 2000 mg Sodium Diet Weight Bearing Status: Weight bearing as tolerated Call your doctor if you observe: Fever of 101 or Higher, Coldness, Increased Willis n, Numbness or Tingling, Change in Color, Inability to urinate, Inability to have a bowel movement, Shortness of breath, Dizziness, Fainting spells, Swelling in the ankles, Chest pain, Prolonged hiccupping, Increased palpitations (irregular heartbeat), Calf discomfort and Uncontrolled pain Meaningful Use Info Meaningful Use Diagnoses (Choose all that apply): None applicable Discharge Plan Admission Admit Date/Time: 02/02/22 23:25 Primary Reason for Your Visit: TIA like symtoms, mild language deficit Attending Provider: Eren Mendez Primary Care Provider: Nathen Chang Consulting Providers: Nathen Yen Discharge Orders/Prescriptions Prescriptions: New insulin lispro [Humalog KwikPen Insulin] 100 unit/mL Insulin Pen 30 unit subcut TIDAC Qty: 0 0RF rosuvastatin 20 mg tablet 20 mg PO DAILY Qty: 30 2RF Continued levothyroxine 100 mcg capsule 100 mcg capsule 100 mcg PO QDAY insulin aspart U-100 100 unit/mL (3 mL) insulin pen See Rx Instructions SC TIDCM Rx Instructions: 30 units with meal plus SSI subcut 3 times daily with meals; cholecalciferol (vitamin D3) 125 mcg (5,000 unit) capsule 125 mcg PO DAILY aspirin 81 MG tablet,delayed release (DR/EC) 81 mg PO DAILY Label Comments: BLOOD THINNER insulin glargine 100 unit/mL (3 mL) Insulin Pen 36 unit SUBCUT QPM acetaminophen [Tylenol Extra Strength] 500 mg tablet 1,000 mg PO Q6H PRN (Reason: pain) Qty: 20 0RF carvedilol 25 mg tablet 25 mg PO BID Qty: 180 3RF Changed insulin glargine 100 unit/mL (3 mL) insulin pen 45 unit SC DAILY Qty: 15 0RF Held fexofenadine-pseudoephedrine 1 TAB.SR tablet extended release 24 hr 1 tab.sr PO DAILY Hold Instructions: Advised to take it as needed for nasal congestion, cold symptoms/allergic rhinitis Label Comments: DIRECTED Discontinued pravastatin 80 MG tablet 80 mg PO QHS Label Comments: CHOLESTEROL Referrals / Follow Up: Nathen Chang MD [Primary Care Provider] - Burak Hunt MD [Non-Staff -Ordering Privileges] - Within 1 Month (concern of TIA, Confusion) Disposition Disposition (needs filled in before D/C Order can be placed): Home, Self Care Charges/Coding Visit Charges OBSV E&M: 95563 Observation care discharge
--- NOTE | 2022-02-03 15:23 | CASEMGMT ---
Addendum entered by Payal Hess 02/03/22 16:14: Pt provided a WW by [facility] for discharge. Heather KENYON CM Addendum entered by Payal Hess 02/03/22 15:46: Speech therapy is recommending OP speech and pt provided with script for same. Pt voices no further questions/concerns/needs. Heather KENYON CM Original Note: Per therapy, pt would benefit from a WW and therapy at discharge. Pt is agreeable to WW and states no preference for DME but declines further therapy at discharge. WW order obtained and sent to [facility] via [employer]. Serina, [facility] rep, aware of order. Heather KENYON CM
--- NOTE | 2022-02-03 15:49 | CASEMGMT ---
Social Work Consult: PHQ-9 assessment due to possible stroke, likely due to Dr. Mendez. Referral source: Self referral See attached assessment for completed details. Patient with PHQ-9 score. Patient reports no concerns on returning to home at time of discharge. No further services requested or indicated. Marcy JOHNSON, GLORIA
[2022-02-04 08:10] LABS: Bedside Glucose 195 mg/dL (74-106)
== END 2022-02-03 14:49 | disposition home or self-care (01) ==
LOC: ED 23:28 → PCU 23:38
PROVIDERS: Emergency Provider Emergency Medicine; PCP Family Medicine; Visit Provider Internal Medicine
DX: G45.9 Transient cerebral ischemic attack, unspecified (principal); E11.22 Type 2 diabetes mellitus with diabetic chronic kidney disease; Z79.4 Long term (current) use of insulin; N18.9 Chronic kidney disease, unspecified; I12.9 Hypertensive chronic kidney disease with stage 1 through stage 4 chronic kidney disease, or unspecified chronic kidney disease; Z87.891 Personal history of nicotine dependence; Z95.810 Presence of automatic (implantable) cardiac defibrillator; R47.9 Unspecified speech disturbances; I25.5 Ischemic cardiomyopathy; I25.10 Atherosclerotic heart disease of native coronary artery without angina pectoris; E78.5 Hyperlipidemia, unspecified; Z79.82 Long term (current) use of aspirin; Z79.899 Other long term (current) drug therapy; I25.2 Old myocardial infarction; E03.9 Hypothyroidism, unspecified; Z79.890 Hormone replacement therapy; Z86.74 Personal history of sudden cardiac arrest; I45.2 Bifascicular block; R47.81 Slurred speech; E66.9 Obesity, unspecified; Z68.31 Body mass index [BMI] 31.0-31.9, adult; Z66 Do not resuscitate
CPT/HCPCS: 36415; 70450; 70496; 70498; 71045; 80048; 80061; 82962; 84443; 84484; 85025; 85610; 85730; 92526; 93005; 93306; 94762; 97162; 97166; 99218; 99285; 99406; Q9967; A4216; G0378

== ENCOUNTER → 2022-02-24 | Outpatient (CLI) | payer MEDICARE, SELFPAY ==
--- NOTE | 2022-02-24 09:52 | CDU_ITS ---
Reason For Study: TIA Rt. Velocities/BP Lt. Velocities/BP Prox CCA 62/8 cm/sec. Prox CCA 64/13 cm/sec. Mid CCA 64/8 cm/sec. Mid CCA 64/11 cm/sec. Dist CCA 56/10 cm/sec. Dist CCA 70/11 cm/sec. Prox ICA 44/12 cm/sec. Prox ICA 89/18 cm/sec. Mid ICA 55/16 cm/sec. Mid ICA 81/26 cm/sec. Dist ICA 62/20 cm/sec. Dist ICA 75/20 cm/sec. Rt. ICA/CCA = 1.0. Lt. ICA/CCA = 1.4. Prox ECA 90/6 cm/sec. Prox ECA 56/5 cm/sec. Rt. Vert. 42/10 cm/sec. Lt. Vert. 30/7 cm/sec. Right Extracranial There is heterogeneous, irregular atherosclerotic plaque noted in the right common carotid artery. There is heterogeneous, irregular atherosclerotic plaque noted in the right internal carotid artery. There is heterogeneous, irregular atherosclerotic plaque noted in the right external carotid artery. Antegrade flow is noted in the right vertebral artery. Left Extracranial There is heterogeneous, irregular atherosclerotic plaque noted in the left common carotid artery. There is heterogeneous, irregular atherosclerotic plaque noted in the left internal carotid artery. There is heterogeneous, irregular atherosclerotic plaque noted in the left external carotid artery. Antegrade flow is noted in the left vertebral artery. Procedure Carotid Duplex [id number]. This is a Carotid Duplex examination using B-mode, color flow and specral Doppler. Exam performed in department. VL/Carotid Duplex Ultrasound Interpretation Summary Irregular calcific plaque with shadowing at the proximal right internal carotid artery with less than 50% stenosis. Less than 50% stenosis right external carotid artery Irregular calcific plaque with shadowing at the proximal left internal carotid artery with less than 50% stenosis Less than 50% stenosis left external carotid artery Patent antegrade vertebral arteries bilaterally Ordering Physician: Nathen Chang Referring Physician: Nathen Chang Performed By: Alexsandra Nettles RDCS, RVT
== END | disposition home or self-care (01) ==
LOC: CVS 09:52
PROVIDERS: PCP Family Medicine; Referring Provider Family Medicine; Visit Provider Family Medicine
DX: I65.23 Occlusion and stenosis of bilateral carotid arteries (principal); G45.8 Other transient cerebral ischemic attacks and related syndromes
CPT/HCPCS: 93880

== ENCOUNTER → 2022-04-29 | Outpatient (CLI) | payer MEDICARE, SELFPAY ==
[2022-04-29 18:55] LABS: Albumin, Serum 3.2 g/dL (3.2-5.0); BUN 19 mg/dL (7-18); BUN/Creat Ratio 11.1 RATIO (10-20); Calcium,Total 9.2 mg/dL (8.5-10.1); Chloride 105 mmol/L (98-107); Creatinine, Serum 1.71 mg/dL (0.70-1.30); EST Glomerular Filtration Rate 42 mL/min (>60); Est Glom Filt Rate - Afr Amer 50 mL/min (>60); Glucose 205 mg/dL (74-106); Phosphorus 3.3 mg/dL (2.5-4.9); Potassium 5.1 mmol/L (3.5-5.1); Sodium Level 139 mmol/L (136-145)
[2022-04-29 19:00] LABS: Vitamin D,25 Hydroxy 38.6 ng/mL
[2022-04-30 08:28] LABS: PTHIN 43.1 pg/mL (18.4-80.1)
== END | disposition home or self-care (01) ==
LOC: MFPLAB 15:19
PROVIDERS: PCP Family Medicine; Referring Provider Family Medicine; Visit Provider Family Medicine
DX: N18.30 Chronic kidney disease, stage 3 unspecified (principal)
CPT/HCPCS: 36415; 80069; 82306; 83970

== ENCOUNTER → 2022-07-08 | Outpatient (CLI) | payer MEDICARE, SELFPAY ==
--- NOTE | 2022-07-08 14:47 | ART_ITS ---
Reason For Study: decreased pedal pulses Procedure A bilateral lower extremity continuous wave Doppler with analog waveform analysis,segmental pressures,and ankle brachial indexes without exercise. Unable to exercise PT due to arrival in a wheel chair and ambulating from chair to exam bed with a cane. Left Segmental Pressures Left brachial= 160mmHg. Left posterior tibial artery = 205mmHg. Left dorsalis pedis artery = 196mmHg. Left digit = 179 mmHg. The left posterior tibial artery waveforms are triphasic. The left dorsalis pedis waveforms are triphasic. Right Segmental Pressures Right brachial= 176mmHg. Right posterior tibial artery = 206mmHg. Right dorsalis pedis artery = 185mmHg. Right digit = 167 mmHg. The right posterior tibial artery waveforms are triphasic. The right dorsalis pedis waveforms are triphasic. Indices The right resting ankle brachial index is 1.17. The right ankle brachial index by the posterior tibial artery is 1.17. The right ankle brachial index by the dorsalis pedis is 1.05. The right digital-brachial index is 0.95. The left resting ankle brachial index is 1.16. The left ankle brachial index by the posterior tibial artery is 1.16. The left ankle brachial index by the dorsalis pedis is 1.11. The left digital-brachial index is 1.16. VL/Lower Ext Art Exam w/o Exercis Interpretation Summary Right GARRETT 1.17, normal. TBI and Doppler/PVR waveforms of the right leg normal a t rest. Left GARRETT 1.16, normal. TBI and Doppler/PVR waveforms of the left leg normal at rest. Ordering Physician: Nathen Chang Referring Physician: NATHEN CHANG MD Performed By: Megha Interiano RVT, RDCS
== END | disposition home or self-care (01) ==
LOC: CVS 14:47
PROVIDERS: PCP Family Medicine; Visit Provider Family Medicine
DX: I73.9 Peripheral vascular disease, unspecified (principal)
CPT/HCPCS: 93923

== ENCOUNTER 2022-07-20 01:01 | Emergency (ER) | payer MEDICARE, SELFPAY ==
[2022-07-20] VITALS (7 sets, daily range): BP systolic 123–156; BP diastolic 65–79; PULSE 65–72; RESP 16–23; TEMP 36.4–36.8; O2SAT 92–93; BMI 31.4
[2022-07-20 01:21] LABS: Absolute Neutrophil Count 4.4 X10^3/uL (2.0-7.7); Basophil# 0.02 X10^3/uL; Basophil% 0.4 % (0-1); Eosinophil# 0.05 X10^3/uL; Eosinophils% 0.9 % (0-5); Hematocrit 41.8 % (40-54); Hemoglobin 14.5 g/dL (13.0-16.5); Lymphocyte % 9.1 % (19-41); Mean Corp Hgb Conc 34.7 g/dL (32-36); Mean Corpuscular Hgb 30.2 pg (27.0-32.0); Mean Corpuscular Volume 87.1 fL (80-94); Mean Platelet Vol. 10.3 fl (6.2-12.0); Monocyte# 0.45 X10^3/uL; Monocyte% 8.2 % (0-10); NRBC Flagged by Analyzer 0 % (0-5); Neutrophil # 4.39 X10^3/uL (2.7-7.7); Neutrophil % 80.3 % (47-70); POSITIVE DIFFERENTIAL YES; Platelet Count 146 K/mm3 (150-450); RBC Distribution Width CV 13.3 % (11.6-14.6); RBC Distribution Width SD 41.8 fl (35.1-43.9); White Blood Count 5.5 K/mm3 (4.4-11.0)
[2022-07-20 01:23] LABS: Differential Indicated SCAN CRITERIA MET
[2022-07-20 01:40] LABS: Bedside Glucose 382 mg/dL (74-106)
[2022-07-20 01:47] LABS: Differential Comment SCANNED
[2022-07-20 01:52] LABS: Anion Gap 8 (5-15); BUN 40 mg/dL (7-18); BUN/Creat Ratio 16.6 RATIO (10-20); Chloride 102 mmol/L (98-107); Creatinine, Serum 2.41 mg/dL (0.70-1.30); EST Glomerular Filtration Rate 28 mL/min (>60); Est Glom Filt Rate - Afr Amer 34 mL/min (>60); Estimated Creatinine Clearance 28.62 ml/min; Glucose 354 mg/dL (74-106); Potassium 4.4 mmol/L (3.5-5.1); Sodium Level 132 mmol/L (136-145)
--- NOTE | 2022-07-20 03:05 | EKG12_ITS ---
Test Reason : Blood Pressure : / mmHG Vent. 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
[2022-07-20] MEDS: 0.9% Normal Saline 1,000 ML 999 ML IV (03:17)
--- NOTE | 2022-07-20 03:18 | CT_ITS ---
EXAM: CT HEAD WITHOUT INTRAVENOUS CONTRAST CLINICAL INDICATION: weakness TECHNIQUE: Multiple axial images were obtained of the head without intravenous contrast. This CT exam was performed using one or more of the following dose reduction techniques: automated exposure control, adjustment of the mA and/or kV according to patient size, and/or use of iterative reconstruction technique. This report was created using [employer] report generation technology. COMPARISON: 02/03/2022 FINDINGS: BRAIN AND EXTRA-AXIAL SPACES: Diffuse cerebral volume loss. Periventricular small vessel ischemic changes. No intra- or extra-axial hemorrhage. No intracranial mass or mass effect. Posterior fossa structures are unremarkable. No hydrocephalus. Basal cisterns are patent. BONES/JOINTS: Unremarkable. No discrete lytic or blastic abnormalities. VASCULATURE: Vascular calcifications. SINUSES: Chronic left maxillary sinus disease. MASTOID AIR CELLS: Unremarkable. Clear. ORBITS: Visualized globes, extraocular muscles, optic nerves and retrobulbar fat appear unremarkable. CT/Brain/Head without Contrast IMPRESSION: 1. No acute intracranial abnormalities. 2. Age-related changes. 3. Chronic left maxillary sinus disease. Electronically Signed: Haroldo Parmar MD at 4:00 EDT ,
[2022-07-20 03:39] LABS: Bacteria 0 SEEN /hpf (None Seen); Mucous, Urine 0 SEEN /hpf (<or=2+); Squamous Epithelial Cells - UA 0 SEEN /hpf (0-5); White Blood Cells 0 SEEN /hpf (0-5)
[2022-07-20 03:41] LABS: Color, Urine Yellow (Yellow); Glucose, Dipstick 1000 mg/dl (Normal); Ketone-Dipstick 5 mg/dl (Negative); Leukocyte Esterase-Dipstick Negative /ul (Negative); Nitrite-Dipstick Negative (Negative); Occult Blood-Urine 10 /ul (Negative); Protein-Dipstick 500 mg/dl (Negative); Specific Gravity, Urine 1.025 (1.002-1.030); Urine Bilirubin Dipstick Negative (Negative); Urine Clarity Clear (Clear); Urine Urobilinogen Normal (Normal)
[2022-07-20 03:48] LABS: Hyaline Cast 0-5 SEEN /lpf (0-5); Red Blood Cells-Urine 0-5 SEEN /hpf (0-5)
[2022-07-20 05:36] LABS: Bedside Glucose 386 mg/dL (74-106)
--- NOTE | 2022-07-20 06:00 | EX.ED.DYSGE1 ---
HPI History of Present Illness Chief Complaint: Hyperglycemia Informant: patient Narrative Narrative: Patient is a 76-year-old male with history of type 1 diabetes mellitus with neuropathy, CKD 3, hypothyroid, hypertension and ischemic cardiomyopathy presenting with generalized weakness. Family states he is really been weak today. He laid in bed. He had nausea and an episode of diarrhea. Patient denies any abdominal pain. Family states has not been taking his Lantus and did take 42 units of NovoLog this afternoon after eating lunch. At home his blood sugars in the 500s. Patient states he had a mild cough but this is not abnormal for him. Family brought him in for further evaluation. Patient denies any recent falls or head injuries. He did have a fall about 3 to 4 weeks ago. Is not on any blood thinners but is on Plavix and aspirin. Patient is no other complaints at this time. Patient ambulates with walker or cane at baseline. 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) Solitary kidney Sustained ventricular tachycardia Ventricular fibrillation Home Medications aspirin 81 mg tablet,delayed release 81 mg PO DAILY heart health 01/20/16 [History Last Taken Unknown] fexofenadine-pseudoephedrine ER 180 mg-240 mg tablet,ext.release 24 hr 1 tab.sr PO DAILY allergies 01/20/16 [History Last Taken Unknown] levothyroxine 100 mcg capsule 100 mcg PO QDAY thyroid 08/20/17 [History Last Taken 12/22/19] cholecalciferol (vitamin D3) 125 mcg (5,000 unit) capsule 125 mcg PO DAILY vitamin 01/15/21 [History Last Taken Unknown] acetaminophen 500 mg tablet (Tylenol Extra Strength) 1,000 mg PO Q6H PRN pain #20 tabs 10/22/21 [Rx Last Taken Unknown] insulin glargine 100 unit/mL (3 mL) subcutaneous pen 63 unit subcut QPM diabetes 10/22/21 [History Last Taken Unknown] carvedilol 25 mg tablet 25 mg PO BID #180 tabs 11/27/21 [Rx Last Taken Unknown] rosuvastatin 20 mg tablet 20 mg PO DAILY #30 tabs 02/03/22 [Rx Last Taken Unknown] clopidogrel 75 mg tablet 75 mg PO DAILY 07/20/22 [History Last Taken Unknown] insulin lispro 100 unit/mL subcutaneous pen (Humalog KwikPen (U-100) Insulin) 50 unit subcut TIDAC 07/20/22 [History Last Taken Unknown] Allergy/AdvReac Type Severity Reaction Status Date / Time amiodarone AdvReac Severe significant Verified 10/22/21 18:28 effect on lung function per PFT 09/19/17 Family History Father Colon cancer Surgical History History of electrophysiologic study (10/21/12) History of implantable cardiac defibrillator (ICD) (04/12/12) History of left heart catheterization (01/21/16) Hx of colonoscopy Social History Smoking Status: Former smoker ROS ROS ED Constitutional Constitutional ED: Reports other Details: fatigue ; Denies chills or fever(s) Eyes Eyes: Denies blurry vision or change in vision ENT ENT ED: Denies sore throat Cardiovascular Cardiovascular: Denies chest pain or palpitations Respiratory/Chest Respiratory/Chest: Reports cough; Denies dyspnea or dyspnea on exertion Gastrointestinal Gastrointestinal: Reports diarrhea and nausea; Denies abdominal pain or vomiting Genitourinary Genitourinary ED: Denies dysuria or hematuria Musculoskeletal Musculoskeletal: Denies arthralgias or myalgias Integumentary Denies rash Neurologic Neurologic: Reports weakness; Denies headache(s) Hematologic/Lymphatic Hematologic/Lymphatic: Denies easy bleeding or easy bruising EXAM Physical Exam Const Vital Signs: 07/20/22 01:02 07/20/22 02:34 07/20/22 03:15 Temperature 98.3 F 98.1 F 97.9 F Temperature Source Oral Oral Temporal Pulse Rate 72 68 69 Respiratory Rate 16 23 H 18 Blood Pressure 123/65 H 137/68 H 132/68 H Blood Pressure Mean 84 91 89 Pulse Ox 92 92 Oxygen Delivery Method Room Air Room Air Room Air 07/20/22 04:00 07/20/22 05:00 07/20/22 05:59 Temperature 97.8 F 97.8 F 97.6 F L Temperature Source Temporal Temporal Pulse Rate 67 66 65 Respiratory Rate 18 16 16 Blood Pressure 141/79 H 156/76 H 156/76 H Blood Pressure Mean 99 102 Pulse Ox 93 93 93 Oxygen Delivery Method Room Air Room Air Positive well nourished and well developed General Appearance ED: well developed and NAD HEENT Reports TM's clear and dry mucous membranes Negative for trauma or tenderness Tympanic Membrane ED: Yes TM's clear Mouth ED: Yes dry mucous membranes Mouth: dry mucous membranes Eyes PERRL and EOMs intact bilaterally Neck supple and no JVD Chest Wall inspection of chest normal and palpation of chest normal Resp normal respiratory effort and clear to auscultation bilaterally Cardio regular rate and regular rhythm GI normal to inspection, nondistended, normoactive bowel sounds and non-tender Extremity normal to inspection General Extremety ED: Negative for edema or tenderness General Extremity: Negative for edema Neuro oriented x3 Neuro Narrative: No focal deficits appreciated Sensorium / Orientation: alert Motor Exam: general weakness Psych mental status grossly normal Skin no rashes or lesions noted and no wounds MDM MDM MDM Narrative Medical decision making narrative: Patient evaluate for generalized weakness and hyperglycemia. Patient is resting comfortably on my evaluation. Appears nontoxic in no acute distress. Work-up looking for cause of weakness including infection as well as cardiac and electrolyte abnormalities is performed. Patient's EKG does not show any acute ischemic changes. He denies any chest pain I do not think troponins are indicated at this time. Patient has a normal CBC with no signs of anemia or leukocytosis. His CMP does show hyperglycemia with a glucose of 354 and relative hyponatremia of 132. Kidney function is near his baseline with a BUN of 40 and a creatinine of 2.41. Suspect patient is mildly dehydrated is given IV fluids in the ER. Chart review shows that patient's kidney function oscillates between 1.7 and 2.5 as I do not think he meets criteria for [place]. Urinalysis is not consistent with infection. After IV fluids patient's blood sugar is 382. Patient is ambulated on room air and family feels that he is at his baseline with his ambulation. He does not desaturate. He is asymptomatic at this time. Is given 8 units of subcu insulin and will be discharged home. Patient and family agreeable this plan of care. He is given return precautions. Patient feels comfortable going home and does not think he requires admission. Admission is considered given the patient's age and generalized weakness but he feels that he would be fine at home. History & Record Review Discussion w/independent historian: Patient and Family Additional record(s) reviewed:: Prior labs Lab Data Labs: Laboratory Results - last 24 hr 07/20/22 07/20/22 07/20/22 00:45 00:45 01:19 WBC 5.5 RBC 4.80 Hgb 14.5 Hct 41.8 MCV 87.1 MCH 30.2 MCHC 34.7 RDW Std Deviation 41.8 RDW Coeff of Peggy 13.3 Plt Count 146 L MPV 10.3 Immature Gran % (Auto) 1.100 H Neut % (Auto) 80.3 H Lymph % (Auto) 9.1 L [place] % (Auto) 8.2 Eos % (Auto) 0.9 Baso % (Auto) 0.4 Absolute Neuts (auto) 4.4 Absolute Lymphs (auto) 0.50 L Nucleated RBC % 0 Differential Comment SCANNED Sodium 132 L Potassium 4.4 Chloride 102 Carbon Dioxide 22.0 Anion Gap 8 BUN 40 H Creatinine 2.41 H Estim Creat Clear Calc 28.62 Est GFR (MDRD) Af Amer 34 L Est GFR (MDRD) Non-Af 28 L BUN/Creatinine Ratio 16.6 Glucose 354 H Calcium 9.0 Urine Color Urine Clarity Urine pH Ur Specific [place] Urine Protein Urine Glucose (UA) Urine Ketones Urine Occult Blood Urine Nitrite Urine Bilirubin Urine Urobilinogen Ur Leukocyte Esterase Urine RBC Urine WBC Ur Squamous Epith Cells Urine Bacteria Hyaline Casts Urine Mucus POC Glucose 382 H 07/20/22 07/20/22 03:30 05:08 WBC RBC Hgb Hct MCV MCH MCHC RDW Std Deviation RDW Coeff of Peggy Plt Count MPV Immature Gran % (Auto) Neut % (Auto) Lymph % (Auto) [place] % (Auto) Eos % (Auto) Baso % (Auto) Absolute Neuts (auto) Absolute Lymphs (auto) Nucleated RBC % Differential Comment Sodium Potassium Chloride Carbon Dioxide Anion Gap BUN Creatinine Estim Creat Clear Calc Est GFR (MDRD) Af Amer Est GFR (MDRD) Non-Af BUN/Creatinine Ratio Glucose Calcium Urine Color Yellow Urine Clarity Clear Urine pH 5.0 Ur Specific [place] 1.025 Urine Protein 500 H Urine Glucose (UA) 1000 H Urine Ketones 5 H Urine Occult Blood 10 H Urine Nitrite Negative Urine Bilirubin Negative Urine Urobilinogen Normal Ur Leukocyte Esterase Negative Urine RBC 0-5 SEEN Urine WBC 0 SEEN Ur Squamous Epith Cells 0 SEEN Urine Bacteria 0 SEEN Hyaline Casts 0-5 SEEN Urine Mucus 0 SEEN POC Glucose 386 H Radiography Diagnostic Testing: Clinical Impression(s) from Imaging Studies Brain CT 07/20/22 03:18 IMPRESSION: 1. No acute intracranial abnormalities. 2. Age-related changes. 3. Chronic left maxillary sinus disease. Electronically Signed: Haroldo Parmar MD at 4:00 EDT , Rhythm Strip Rhythm Strip: Sinus Rhythm Rate: 65 Ectopy: None EKG Initial EKG: Attestation: I personally reviewed and interpreted this EKG as follows: Interpretation: Sinus Rhythm Comments: Normal sinus rhythm rate of 65 bpm Right bundle branch block with left anterior fascicular block T wave inversions in inferior leads as well as V4 through V6 Compared to prior EKG on 02/02/2022, no acute changes Discharge Plan Triage Chief Complaint: Hyperglycemia ED Provider: Candelaria Salazar Dx/Rx/DC Orders Clinical Impression: Hyperglycemia due to diabetes mellitus, Stage 3 chronic kidney disease due to type 1 diabetes mellitus, Generalized weakness Instructions: ED Diabetic Hyperglycemia, ED Weakness (Uncertain Cause) Prescriptions: No Action levothyroxine 100 mcg capsule 100 mcg capsule 100 mcg PO QDAY cholecalciferol (vitamin D3) 125 mcg (5,000 unit) capsule 125 mcg PO DAILY aspirin 81 MG tablet,delayed release (DR/EC) 81 mg PO DAILY Label Comments: BLOOD THINNER fexofenadine-pseudoephedrine 1 TAB.SR tablet extended release 24 hr 1 tab.sr PO DAILY Hold Instructions: Advised to take it as needed for nasal congestion, cold symptoms/allergic rhinitis Label Comments: DIRECTED insulin glargine 100 unit/mL (3 mL) Insulin Pen 63 unit SUBCUT QPM acetaminophen [Tylenol Extra Strength] 500 mg tablet 1,000 mg PO Q6H PRN (Reason: pain) Qty: 20 0RF rosuvastatin 20 mg tablet 20 mg PO DAILY Qty: 30 2RF clopidogrel 75 mg tablet 75 mg PO DAILY insulin lispro [Humalog KwikPen Insulin] 100 unit/mL insulin pen 50 unit subcut TIDAC carvedilol 25 mg tablet 25 mg PO BID Qty: 180 3RF Primary Care Provider: Nathen Chang Referrals: Nathen Chang MD [Primary Care Provider] - Activity Restrictions/Additional Instructions: His lab work and imaging did not show any severe abnormalities. He has renal insufficiency which appears to be chronic. I do encourage him to drink more fluids. His blood sugar is elevated but does not meet criteria for DKA or other diabetic crisis. It is important that he takes his insulin as prescribed. There is no sign of infection on his work-up today. I would recommend return to the ER if he has any further weakness, falls or progression of his symptoms. Otherwise he should be fine to follow-up with his primary care doctor. Disposition Disposition: Home, Self Care Discharge Date/Time: 07/20/22 06:26
[2022-07-20] MEDS: Insulin Lispro 100 UNIT/ML INSULN.PEN 8 UNIT SC (06:07)
== END 2022-07-20 06:26 | disposition home or self-care (01) ==
PROVIDERS: Emergency Provider Emergency Medicine; PCP Family Medicine; Visit Provider Emergency Medicine
DX: E10.65 Type 1 diabetes mellitus with hyperglycemia (principal); I50.9 Heart failure, unspecified; I13.0 Hypertensive heart and chronic kidney disease with heart failure and stage 1 through stage 4 chronic kidney disease, or unspecified chronic kidney disease; E10.22 Type 1 diabetes mellitus with diabetic chronic kidney disease; N18.30 Chronic kidney disease, stage 3 unspecified; E78.5 Hyperlipidemia, unspecified; Z87.891 Personal history of nicotine dependence; E87.1 Hypo-osmolality and hyponatremia; I25.10 Atherosclerotic heart disease of native coronary artery without angina pectoris
CPT/HCPCS: 70450; 80048; 81001; 82962; 85025; 93005; 96360; 99284; J7030

== ENCOUNTER → 2022-08-01 | Outpatient (CLI) | payer MEDICARE, SELFPAY ==
[2022-08-01 17:57] LABS: Absolute Lymphocyte Count 1.28 X10^3/uL (0.83-4.51); Absolute Neutrophil Count 5.9 X10^3/uL (2.0-7.7); Basophil# 0.06 X10^3/uL; Basophil% 0.7 % (0-1); Eosinophil# 0.15 X10^3/uL; Eosinophils% 1.8 % (0-5); Hematocrit 44.7 % (40-54); Lymphocyte # 1.28 X10^3/ul (0.83-4.51); Lymphocyte % 15.3 % (19-41); Mean Corp Hgb Conc 31.3 g/dL (32-36); Mean Corpuscular Hgb 29.4 pg (27.0-32.0); Mean Corpuscular Volume 93.9 fL (80-94); Mean Platelet Vol. 9.9 fl (6.2-12.0); Monocyte# 0.96 X10^3/uL; Monocyte% 11.4 % (0-10); NRBC Flagged by Analyzer 0 % (0-5); Neutrophil % 70.3 % (47-70); Platelet Count 185 K/mm3 (150-450); RBC Distribution Width CV 13.8 % (11.6-14.6); RBC Distribution Width SD 48.1 fl (35.1-43.9); Red Blood Count 4.76 M/mm3 (4.6-6.2); White Blood Count 8.4 K/mm3 (4.4-11.0)
[2022-08-01 18:10] LABS: Vitamin B12 253 pg/mL (211-911)
[2022-08-01 18:28] LABS: ALB/GLOB Ratio 0.7 RATIO (0.9-2.4); AST(SGOT) 26 U/L (15-37); Alanine Aminotransfer ALT/SGPT 30 U/L (16-61); Albumin, Serum 2.9 g/dL (3.2-5.0); Alkaline Phosphatase 62 U/L (45-117); Anion Gap 4 (5-15); BUN 25 mg/dL (7-18); BUN/Creat Ratio 13.2 RATIO (10-20); Calcium,Total 9.5 mg/dL (8.5-10.1); Chloride 106 mmol/L (98-107); EST Glomerular Filtration Rate 37 mL/min (>60); Est Glom Filt Rate - Afr Amer 45 mL/min (>60); Globulin 4.1 g/dL (2.2-4.2); Glucose 174 mg/dL (74-106); Potassium 4.6 mmol/L (3.5-5.1); Sodium Level 137 mmol/L (136-145); Thyroid Stim Hormone (TSH) 1.62 uIU/mL (0.358-3.74)
== END | disposition home or self-care (01) ==
LOC: MFPLAB 14:42
PROVIDERS: PCP Family Medicine; Visit Provider Family Medicine
DX: R20.2 Paresthesia of skin (principal)
CPT/HCPCS: 36415; 80053; 82607; 82746; 84443; 85025

== ENCOUNTER → 2022-10-21 | Outpatient (CLI) | payer MEDICARE, SELFPAY ==
--- NOTE | 2022-10-22 16:45 | STRESSREP ---
Stress Test Report Pharmacologic myocardial perfusion stress test. 76-year-old man with a history of nonsustained ventricular tachycardia previous ID Resting EKG demonstrates sinus rhythm with a rate of 62 bpm. Resting blood pressure is 158/82 mmHg. 0.4 mg of regadenoson was infused per usual protocol followed by rapid intravenous saline flush injection. Continuous EKG monitoring was performed. The maximum heart rate was 72 bpm which was 50% of max impacted heart rate the maximum workload was 1 metabolic equivalent. At rest there were no ST or T wave changes noted to suggest ischemia and at peak infusion nonspecific ST changes were noted which did not meet the criteria for ischemia. No clinical angina is noted. The final blood pressure was 122/74 mmHg. Myocardial perfusion protocol. 14.8 mCi of technetium 99m sestamibi was injected at rest. 0.4 mg of regadenoson was infused per usual protocol. At peak infusion 44.5 mCi of technetium 99m sestamibi was injected stress images were obtained stress and rest images were reconstructed and compared in the short axis vertical long and horizontal long axis. Gated images were also obtained. Perfusion SPECT analysis: Review of the stress images demonstrate normal uptake of tracer noted in all areas of the myocardium except for a medium size portion demonstrating a defect in the mid inferior and inferior basal wall extending to the basal lateral wall.. The resting images similar demonstrated normal uptake of tracer noted in all areas of the myocardium except for the aforementioned areas. The above is suggestive of a previous infarct involving the basal, mid, and basal inferolateral jenkins. No reversibility is noted. Gated SPECT analysis: The gated ejection fraction is 44%. Conclusion: Abnormal pharmacologic myocardial perfusion stress test. Reduce ejection fraction. Basal inferior, mid inferior and basal inferolateral infarct. No ischemia noted.
== END | disposition home or self-care (01) ==
LOC: CVS 06:13
PROVIDERS: PCP Family Medicine; Referring Provider Nurse Practitioner Family; Visit Provider Nurse Practitioner Family
DX: I47.29 Other ventricular tachycardia (principal); E10.65 Type 1 diabetes mellitus with hyperglycemia; I25.10 Atherosclerotic heart disease of native coronary artery without angina pectoris; I25.5 Ischemic cardiomyopathy; I10 Essential (primary) hypertension; E78.5 Hyperlipidemia, unspecified; Z95.810 Presence of automatic (implantable) cardiac defibrillator
CPT/HCPCS: 78452; 93017; A9500; A4216; J2785

== ENCOUNTER → 2022-10-27 | Outpatient (CLI) | payer MEDICARE, SELFPAY ==
[2022-10-27 17:47] LABS: Absolute Lymphocyte Count 1.65 X10^3/uL (0.83-4.51); Absolute Neutrophil Count 3.8 X10^3/uL (2.0-7.7); Basophil# 0.06 X10^3/uL; Eosinophil# 0.17 X10^3/uL; Eosinophils% 2.7 % (0-5); Hematocrit 44.5 % (40-54); Hemoglobin 14.4 g/dL (13.0-16.5); Lymphocyte # 1.65 X10^3/ul (0.83-4.51); Lymphocyte % 26.4 % (19-41); Mean Corp Hgb Conc 32.4 g/dL (32-36); Mean Corpuscular Hgb 29.7 pg (27.0-32.0); Mean Corpuscular Volume 91.8 fL (80-94); Mean Platelet Vol. 10.4 fl (6.2-12.0); Monocyte# 0.59 X10^3/uL; Monocyte% 9.4 % (0-10); NRBC Flagged by Analyzer 0 % (0-5); Neutrophil # 3.76 X10^3/uL (2.7-7.7); Platelet Count 165 K/mm3 (150-450); RBC Distribution Width CV 13.7 % (11.6-14.6); RBC Distribution Width SD 46.3 fl (35.1-43.9); Red Blood Count 4.85 M/mm3 (4.6-6.2); White Blood Count 6.3 K/mm3 (4.4-11.0)
[2022-10-27 18:12] LABS: ALB/GLOB Ratio 0.8 RATIO (0.9-2.4); AST(SGOT) 25 U/L (15-37); Alanine Aminotransfer ALT/SGPT 40 U/L (16-61); Alkaline Phosphatase 61 U/L (45-117); Anion Gap 5 (5-15); BUN 27 mg/dL (7-18); BUN/Creat Ratio 13.7 RATIO (10-20); Calcium,Total 8.9 mg/dL (8.5-10.1); Chloride 106 mmol/L (98-107); Creatinine, Serum 1.97 mg/dL (0.70-1.30); EST Glomerular Filtration Rate 35 mL/min (>60); Est Glom Filt Rate - Afr Amer 43 mL/min (>60); Globulin 3.8 g/dL (2.2-4.2); Glucose 181 mg/dL (74-106); Potassium 3.9 mmol/L (3.5-5.1); Protein, Total 6.8 g/dL (6.4-8.2); Sodium Level 139 mmol/L (136-145)
[2022-10-27 18:45] LABS: Hepatitis C Antibody Non-Reactive (Nonreactive)
[2022-10-28 08:09] LABS: PTHIN 50.5 pg/mL (18.4-80.1)
== END | disposition home or self-care (01) ==
LOC: MFPLAB 15:08
PROVIDERS: PCP Family Medicine; Visit Provider Family Medicine
DX: D53.1 Other megaloblastic anemias, not elsewhere classified (principal); E11.39 Type 2 diabetes mellitus with other diabetic ophthalmic complication; E66.01 Morbid (severe) obesity due to excess calories; Z68.35 Body mass index [BMI] 35.0-35.9, adult; Z11.59 Encounter for screening for other viral diseases
CPT/HCPCS: 36415; 80053; 83970; 84443; 85025; 86803

== ENCOUNTER 2022-12-27 16:51 | Inpatient (IN) | payer MEDICARE, SELFPAY ==
[2022-12-27] VITALS (10 sets, daily range): BP systolic 145–221; BP diastolic 67–100; PULSE 75–85; RESP 19–21; TEMP 36.9–38.2; O2SAT 91–96; BMI 31.8; BMI 32.3
--- NOTE | 2022-12-27 16:59 | EKG12_ITS ---
Test Reason : SOB Blood Pressure : / mmHG Vent. Rate : 080 BPM Atrial Rate : 080 BPM P-R Int : 138 ms QRS Dur : 112 ms QT Int : 406 ms P-R-T Axes : 005 -74 060 degrees QTc Int : 468 ms Normal sinus rhythm Possible Left atrial enlargement Left anterior fascicular block Abnormal ECG Confirmed by JENIFER ARCE, DOMO ([id number]), pictures editor SO CARDENAS ([id number]) on 12/30/2022 10:38:17 AM Referred By: Confirmed By:RIO BURGESS MD
--- NOTE | 2022-12-27 17:04 | RAD_ITS ---
STUDY: X-RAY CHEST REASON FOR EXAM: Male, 77 years old. COVID +, cough, general illness x 3 days TECHNIQUE: AP COMPARISON: None. FINDINGS: Two lead cardiac conduction device is seen via the left subclavian vein with lead tips projecting over the right atrium and right ventricle, respectively. EKG leads project over the chest. The lungs are clear and expanded. There is no demonstrated pleural abnormality. Normal size heart. Normal mediastinum and duke. Normal visualized pulmonary arteries. There is atherosclerotic calcification of the aortic arch with tortuosity. Normal visualized thoracic spine. Normal visualized ribs, clavicles, and shoulders. There is no demonstrated abnormality of the visualized soft tissue structures of the upper abdomen. RAD/Chest 1 View (Portable) IMPRESSION: Nonacute portable x-ray examination of the chest. Electronically Signed: Judah Herrera MD ([place]) at 18:12 EDT ,
--- NOTE | 2022-12-27 17:05 | EX.ED.DYSGE1 ---
HPI <AIDA Kuhn - Last Filed: 12/27/22 19:01> History of Present Illness Chief Complaint: Shortness of Breath Narrative Narrative: Patient is a 77-year-old male with history of diabetes, CAD, PA with a pacemaker, obesity hypothyroidism who presents to the emergency department for 3 days of generalized fatigue, difficulty performing daily activities, more short of breath. Patient took an at home COVID test on Thursday of this last week, it was positive. Patient was hypoxic for the squad at 88%. Patient states he also has had diarrhea and feels very weak. Fever and chills at home. 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) Solitary kidney Sustained ventricular tachycardia Ventricular fibrillation Home Medications aspirin 81 mg tablet,delayed release 81 mg PO DAILY heart health 01/20/16 [History Last Taken Unknown] fexofenadine-pseudoephedrine ER 180 mg-240 mg tablet,ext.release 24 hr 1 tab.sr PO DAILY allergies 01/20/16 [History Last Taken Unknown] levothyroxine 100 mcg capsule 100 mcg PO QDAY thyroid 08/20/17 [History Last Taken 12/22/19] cholecalciferol (vitamin D3) 125 mcg (5,000 unit) capsule 125 mcg PO DAILY vitamin 01/15/21 [History Last Taken Unknown] acetaminophen 500 mg tablet (Tylenol Extra Strength) 1,000 mg (2 x 500 mg) PO Q6H PRN pain #20 tabs 10/22/21 [Rx Last Taken Unknown] insulin glargine 100 unit/mL (3 mL) subcutaneous pen 63 unit subcut QPM diabetes 10/22/21 [History Last Taken Unknown] carvedilol 25 mg tablet 25 mg PO BID #180 tabs 11/27/21 [Rx Last Taken Unknown] rosuvastatin 20 mg tablet 20 mg PO DAILY #30 tabs 02/03/22 [Rx Last Taken Unknown] clopidogrel 75 mg tablet 75 mg PO DAILY 07/20/22 [History Last Taken Unknown] insulin lispro 100 unit/mL subcutaneous pen (Humalog KwikPen (U-100) Insulin) 50 unit subcut TIDAC 07/20/22 [History Last Taken Unknown] magnesium oxide 400 mg PO QHS 12/27/22 [History Last Taken Unknown] pyridoxine (vitamin B6) 50 mg tablet 50 mg PO TID 12/27/22 [History Last Taken Unknown] Allergy/AdvReac Type Severity Reaction Status Date / Time amiodarone AdvReac Severe significant Verified 12/27/22 16:52 effect on lung function per PFT 09/19/17 Family History (Updated 12/27/22 @ 17:[address] Gela Salinas MD) Father Colon cancer Mother No problems noted. Surgical History History of electrophysiologic study (10/21/12) History of implantable cardiac defibrillator (ICD) (04/12/12) History of left heart catheterization (01/21/16) Hx of colonoscopy Social History (Updated 12/27/22 @ 17:[address] Gela Salinas MD) household members: significant other Smoking Status: Former smoker alcohol intake: never substance use type: does not use ROS <AIDA Kuhn - Last Filed: 12/27/22 19:01> ROS ED ROS Narrative Constitutional: Negative for weight loss, weakness. Positive for fever and chills Eyes: Negative for vision loss, vision change, double vision ENT: Negative for any sore throat, ear pain, congestion Cardiovascular: Negative for any chest pain, tightness, palpitations Respiratory: Negative for any sputum production, hemoptysis, orthopnea. Positive dyspnea, dyspnea on exertion, cough Gastrointestinal: Negative for any abdominal pain, nausea, vomiting, diarrhea, constipation, blood in stool, blood in vomit : Negative for any urinary frequency, dysuria, retention, blood in urine Muscle skeletal: Negative for any muscle joint pain, stiffness, arthralgias, neck pain, back pain. Positive for muscle aches Neurological: Negative for any headache, syncope, numbness or tingling, dizziness Skin: Negative for any rashes, lumps, itching, abrasions, lacerations Psychiatric: Negative for any depression, anxiety, stress, suicidal ideation, homicidal ideation Hematologic: Negative for any easy bruising, excessive bruising, easy bleeding Allergies: Negative for any eczema, hives, rash EXAM <Elmo SchreiberAIDA - Last Filed: 12/27/22 19:01> Physical Exam Narrative Exam Narrative: Vital signs reviewed. Patient is slight lethargic on initial examination. Patient pulse oxygenation on my examination at rest was 90 to 91%. Patient was febrile here at 100.8. HEET: Head normocephalic atraumatic, TMs clear bilaterally. Posterior pharynx is clear, dry mucous membranes. Nares clear bilaterally. Neck: Supple with no lymphadenopathy or tenderness. No signs of meningismus, negative jolt sign. Cardiac: Regular rate and rhythm no murmurs gallops or rubs, equal peripheral pulses bilaterally. Respiratory: Diminished lung sounds to the lower bases.. No chest tenderness. Abdomen: Soft, nontender, nondistended. No abdominal bruit or pulsatile masses. No hepatosplenomegaly Extremities: No peripheral edema, no signs of gross trauma or deformity. Active full range of motion of all extremities. Neuro: Cranial nerves II through XII intact, no focal neurological deficits. Skin: Clean dry and intact with no rash, purpura, petechiae, vesicles or pustules. Backs/flank: No CVA tenderness, no midline spinal tenderness, no deformity. Psych: Normal mood and affect. No SI, HI or acute psychosis. Const Vital Signs: 12/27/22 16:52 12/27/22 16:56 12/27/22 17:33 Temperature 98.5 F 100.8 F H Temperature Source Temporal Oral Pulse Rate 79 Respiratory Rate 19 H Respiratory Effort Short of Breath Respiratory Depth Deep Respiratory Pattern Tachypnea Blood Pressure 211/89 H Blood Pressure Mean 129 Pulse Ox 93 Oxygen Delivery Method Room Air Room Air 12/27/22 17:34 12/27/22 17:56 12/27/22 18:00 Temperature 100.3 F H 100.3 F H Temperature Source Oral Oral Pulse Rate 76 75 77 Respiratory Rate 21 H 20 H 21 H Respiratory Effort Respiratory Depth Respiratory Pattern Blood Pressure 204/100 H 221/95 H 221/95 H Blood Pressure Mean 134 137 137 Pulse Ox 92 92 92 Oxygen Delivery Method Room Air Room Air Room Air Positive well nourished and well developed General Appearance ED: well developed <Dr. Solomon Griffiths MD - Last Filed: 12/27/22 18:31> Physical Exam Const Vital Signs: 12/27/22 16:52 12/27/22 16:56 12/27/22 17:33 Temperature 98.5 F 100.8 F H Temperature Source Temporal Oral Pulse Rate 79 Respiratory Rate 19 H Respiratory Effort Short of Breath Respiratory Depth Deep Respiratory Pattern Tachypnea Blood Pressure 211/89 H Blood Pressure Mean 129 Pulse Ox 93 Oxygen Delivery Method Room Air Room Air 12/27/22 17:34 12/27/22 17:56 12/27/22 18:00 Temperature 100.3 F H 100.3 F H Temperature Source Oral Oral Pulse Rate 76 75 77 Respiratory Rate 21 H 20 H 21 H Respiratory Effort Respiratory Depth Respiratory Pattern Blood Pressure 204/100 H 221/95 H 221/95 H Blood Pressure Mean 134 137 137 Pulse Ox 92 92 92 Oxygen Delivery Method Room Air Room Air Room Air MDM <AIDA Kuhn - Last Filed: 12/27/22 19:01> MDM Lab Data Labs: Laboratory Results - last 24 hr 12/27/22 17:08 WBC 5.3 RBC 5.00 Hgb 14.9 Hct 45.6 MCV 91.2 MCH 29.8 MCHC 32.7 RDW Std Deviation 45.7 H RDW Coeff of Peggy 13.6 Plt Count 123 L MPV 10.7 Immature Gran % (Auto) 0.400 Neut % (Auto) 72.4 H Lymph % (Auto) 12.7 L [place] % (Auto) 13.1 H Eos % (Auto) 0.8 Baso % (Auto) 0.6 Absolute Neuts (auto) 3.8 Absolute Lymphs (auto) 0.67 L Nucleated RBC % 0 Sodium 132 L Potassium 4.5 Chloride 99 Carbon Dioxide 26.0 Anion Gap 7 BUN 26 H Creatinine 2.25 H Estim Creat Clear Calc 30.18 Est GFR (MDRD) Af Amer 37 L Est GFR (MDRD) Non-Af 30 L BUN/Creatinine Ratio 11.6 Glucose 414 H Calcium 9.0 Radiography Diagnostic Testing: Clinical Impression(s) from Imaging Studies Chest X-Ray 12/27/22 17:04 IMPRESSION: Nonacute portable x-ray examination of the chest. Electronically Signed: Judah Herrera MD ([place]) at 18:12 EDT , EKG Initial EKG: Attestation: I personally reviewed and interpreted this EKG as follows: Comments: EKG shows a normal sinus rhythm, rate of 80 bpm, VA 138 ms, QRS duration of 12 ms, no acute ST elevation, no acute infarct noted. Treatment and Re-Evaluation :: Patient on initial evaluation was febrile, patient pulse oxygenation was between 90 and 91%. Patient did have an 88% pulse ox with the squad. Patient has positive for COVID-19 since Thursday which was 3 days ago. Patient is having trouble maintaining at home secondary to weakness, patient also has diarrhea. Patient received basic laboratory values, as well as IV fluids. After speak with the patient, I do believe the patient might need to be admitted to the hospital secondary to COVID-19, failure to thrive, weakness. On reassessment, patient's blood pressure remained elevated, I did give him his carvedilol dose is what he takes at home. Patient given 2 L of normal saline as well as insulin. Spoke with hospitalist, he will be admitted to the hospital. Patient will be admitted for failure to thrive, COVID-19, hypoxia, hyperglycemia, weakness. <Dr. Solomon Griffiths MD - Last Filed: 12/27/22 18:31> [facility] Narrative Medical decision making narrative: I have personally performed a face to face assessment of the patient and have reviewed the MAHAD Note. I performed a substantive portion of the visit including all aspects of the following. My hurtado findings include: History is 70-year-old diabetic male with cardiac history. Has not felt well for last several days. He tested COVID-positive at home. He said he is so weak he is having difficulty getting around the house. He has had fever and chills. Shortness of breath. Exam is [seven 77-year-old male vital signs stable blood pressure elevated 221/95. Temperature 100.3. Pulse ox 93% on room air no hypoxia. HEENT exam atraumatic. Dry mucous membranes. Neck nontender. Lungs clear to auscultation. Heart regular rhythm rate about 75. Chest wall nontender. Abdomen soft nontender. Moving all 4 extremities. Generally he looks weak. Patient is awake and alert. Answering questions and following commands.] Medical Decision Making [70-year-old male with significant past medical history is COVID-positive plan generalized weakness. Screening labs are obtained. Show chronic renal insufficiency. Diabetic hyperglycemia with a blood sugar 414. We treated with IV fluids. Subcu insulin. We will speak to the hospitalist about admission.] Other additions or changes: [None] Lab Data Labs: Laboratory Results - last 24 hr 12/27/22 17:08 WBC 5.3 RBC 5.00 Hgb 14.9 Hct 45.6 MCV 91.2 MCH 29.8 MCHC 32.7 RDW Std Deviation 45.7 H RDW Coeff of Peggy 13.6 Plt Count 123 L MPV 10.7 Immature Gran % (Auto) 0.400 Neut % (Auto) 72.4 H Lymph % (Auto) 12.7 L [place] % (Auto) 13.1 H Eos % (Auto) 0.8 Baso % (Auto) 0.6 Absolute Neuts (auto) 3.8 Absolute Lymphs (auto) 0.67 L Nucleated RBC % 0 Sodium 132 L Potassium 4.5 Chloride 99 Carbon Dioxide 26.0 Anion Gap 7 BUN 26 H Creatinine 2.25 H Estim Creat Clear Calc 30.18 Est GFR (MDRD) Af Amer 37 L Est GFR (MDRD) Non-Af 30 L BUN/Creatinine Ratio 11.6 Glucose 414 H Calcium 9.0 Radiography Diagnostic Testing: Clinical Impression(s) from Imaging Studies Chest X-Ray 12/27/22 17:04 IMPRESSION: Nonacute portable x-ray examination of the chest. Electronically Signed: Judah Herrera MD ([place]) at 18:12 EDT , Discharge Plan Dx/Rx/DC Orders Clinical Impression: COVID-19, Weakness, Acute dehydration, Hyperglycemia due to diabetes mellitus, Chronic hypertension, Adult failure to thrive Disposition Disposition: [facility]
[2022-12-27 17:14] LABS: Absolute Lymphocyte Count 0.67 X10^3/uL (0.83-4.51); Absolute Neutrophil Count 3.8 X10^3/uL (2.0-7.7); Basophil# 0.03 X10^3/uL; Basophil% 0.6 % (0-1); Eosinophil# 0.04 X10^3/uL; Eosinophils% 0.8 % (0-5); Hematocrit 45.6 % (40-54); Hemoglobin 14.9 g/dL (13.0-16.5); Lymphocyte # 0.67 X10^3/ul (0.83-4.51); Lymphocyte % 12.7 % (19-41); Mean Corp Hgb Conc 32.7 g/dL (32-36); Mean Corpuscular Hgb 29.8 pg (27.0-32.0); Mean Corpuscular Volume 91.2 fL (80-94); Mean Platelet Vol. 10.7 fl (6.2-12.0); Monocyte# 0.69 X10^3/uL; Monocyte% 13.1 % (0-10); NRBC Flagged by Analyzer 0 % (0-5); Neutrophil # 3.81 X10^3/uL (2.7-7.7); Neutrophil % 72.4 % (47-70); Platelet Count 123 K/mm3 (150-450); RBC Distribution Width CV 13.6 % (11.6-14.6); RBC Distribution Width SD 45.7 fl (35.1-43.9); White Blood Count 5.3 K/mm3 (4.4-11.0)
[2022-12-27 17:32] LABS: Anion Gap 7 (5-15); BUN 26 mg/dL (7-18); BUN/Creat Ratio 11.6 RATIO (10-20); Chloride 99 mmol/L (98-107); Creatinine, Serum 2.25 mg/dL (0.70-1.30); EST Glomerular Filtration Rate 30 mL/min (>60); Est Glom Filt Rate - Afr Amer 37 mL/min (>60); Estimated Creatinine Clearance 30.18 ml/min; Glucose 414 mg/dL (74-106); Potassium 4.5 mmol/L (3.5-5.1); Sodium Level 132 mmol/L (136-145)
[2022-12-27] MEDS: 0.9% Normal Saline (1000mL) 1,000 ML 1000 ML IV (17:34)
--- NOTE | 2022-12-27 18:30 | HP.PCM.HOS_ITS ---
HPI - General General Date of Admission: 12/27/22 Date of Service: 12/27/22 Chief Complaint: Dyspnea, cough, diarrhea, fatigued, + outside COVID testing. HPI Narrative The patient is a 77 y/o M w/ PMHx: CKD stage III unclear subtype, CAD, Hx VF Cardiac arrest s/p pacer/AICD, HFpEF/Ischemic cardiomyopathy, Obesity, Tobacco use, HTN, HLD, Hypothyroidism, Allergic rhintis who presents to the [facility] ED on 12/27/22 with history of several days of increased fatigue, malaise, difficulty even performing tasks with dyspnea worse with exertion with poor appetite, nausea, emesis, diarrhea, body aches, congestion, sore throat with home COVID test on Thursday noted to be positive when patient worsened with concurrent fevers and chills at home prompting eventual EMS call with noted hypoxia for squad of 88% on room air prompting transition to the ED for evaluation. Patient significant is present and she has had similar symptoms and did a home test that was negative but discussed if he is truly COVID-positive she certainly has COVID as well. From discussion with patient significant and him he was vaccinated with Murphy and Pfizer only. Work-up in the ED included Tmax in the ED 100.8, heart rate 79, BP initially 211/89, respiratory rate 19, 93% on room air, CBC with WBC 5.3, hemoglobin 14.9, MCV 91.2, platelet 123 with lymphopenia, BMP with sodium 132, BUN/creatinine 26/2.25, glucose 414, chest x-ray with no acute cardiopulmonary findings, EKG with sinus rhythm with no acute evidence of ischemia. In the ED patient administered 1 L normal saline. Ordered confirmatory COVID, PCR given timeline to be cautious and will administer hyd ralazine 20 mg IV x 1 as well as IV decadron 6 mg x 1 given lengthy weight times for transition to in-house bed. 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) Solitary kidney Sustained ventricular tachycardia Ventricular fibrillation Home Medications aspirin 81 mg tablet,delayed release 81 mg PO DAILY heart health 01/20/16 [History Last Taken Unknown] fexofenadine-pseudoephedrine ER 180 mg-240 mg tablet,ext.release 24 hr 1 tab.sr PO DAILY allergies 01/20/16 [History Last Taken Unknown] levothyroxine 100 mcg capsule 100 mcg PO QDAY thyroid 08/20/17 [History Last [place] 12/22/19] cholecalciferol (vitamin D3) 125 mcg (5,000 unit) capsule 125 mcg PO DAILY vitamin 01/15/21 [History Last Taken Unknown] acetaminophen 500 mg tablet (Tylenol Extra Strength) 1,000 mg (2 x 500 mg) PO Q6H PRN pain #20 tabs 10/22/21 [Rx Last Taken Unknown] insulin glargine 100 unit/mL (3 mL) subcutaneous pen 63 unit subcut QPM diabetes 10/22/21 [History Last Taken Unknown] carvedilol 25 mg tablet 25 mg PO BID #180 tabs 11/27/21 [Rx Last Taken Unknown] rosuvastatin 20 mg tablet 20 mg PO DAILY #30 tabs 02/03/22 [Rx Last Taken Unknown] clopidogrel 75 mg tablet 75 mg PO DAILY 07/20/22 [History Last Taken Unknown] insulin lispro 100 unit/mL subcutaneous pen (Humalog KwikPen (U-100) Insulin) 50 unit subcut TIDAC 07/20/22 [History Last Taken Unknown] magnesium oxide 400 mg PO QHS 12/27/22 [History Last Taken Unknown] pyridoxine (vitamin B6) 50 mg tablet 50 mg PO TID 12/27/22 [History Last Taken Unknown] Allergy/AdvReac Type Severity Reaction Status Date / Time amiodarone AdvReac Severe significant Verified 12/27/22 16:52 effect on lung function per PFT 09/19/17 Family History (Updated 12/27/22 @ 17:[address] Gela Salinas MD) Father Colon cancer Mother No problems noted. Surgical History History of electrophysiologic study (10/21/12) History of implantable cardiac defibrillator (ICD) (04/12/12) History of left heart catheterization (01/21/16) Hx of colonoscopy Social History (Updated 12/27/22 @ 18:[address] Gela Salinas MD) household members: significant other Smoking Status: Former smoker alcohol intake: never substance use type: does not use ROS ROS Narrative Admission Review of Systems: CONSTITUTIONAL: No weight loss, + fever, chills, weakness or fatigue. HEENT: + Congestion, sore throat. Eyes: No visual loss, blurred vision, double vision or yellow sclerae. Ears, Nose, Throat: No hearing loss, sneezing. SKIN: No rash or itching, lesions, wounds except + occasional staged ecchymoses. CARDIOVASCULAR: No chest pain, chest pressure or chest discomfort, palpitations, edema, orthopnea, syncopal events. RESPIRATORY: + shortness of breath, cough without marked sputum, worse with exertion. No wheezing, hemoptysis. GASTROINTESTINAL: + anorexia, nausea, vomiting, diarrhea. No abdominal pain, melena, BRBPR. GENITOURINARY: No dysuria, frequency, urgency or retention. NEUROLOGICAL: No headache, dizziness, syncope, paralysis, ataxia, numbness or tingling in the extremities, focal weakness, change in bowel or bladder control, seizure. MUSCULOSKELETAL: + muscle, back pain, joint pain or stiffness. HEMATOLOGIC: + Easy bleeding or bruising. LYMPHATICS: No enlarged nodes. No history of splenectomy. PSYCHIATRIC: No history of depression or anxiety. ENDOCRINOLOGIC: + reports of sweating, cold or heat intolerance. No polyuria or polydipsia. ALLERGIES: + history of rhinitis. Vital Signs Vital Signs Vital Signs: 12/27/22 16:52 12/27/22 16:56 12/27/22 17:33 Temperature 98.5 F 100.8 F H Temperature Source Temporal Oral Pulse Rate 79 Respiratory Rate 19 H Respiratory Effort Short of Breath Respiratory Depth Deep Respiratory Pattern Tachypnea Blood Pressure 211/89 H Blood Pressure Mean 129 Pulse Ox 93 Oxygen Delivery Method Room Air Room Air 12/27/22 17:34 12/27/22 17:56 12/27/22 18:00 Temperature 100.3 F H 100.3 F H Temperature Source Oral Oral Pulse Rate 76 75 77 Respiratory Rate 21 H 20 H 21 H Respiratory Effort Respiratory Depth Respiratory Pattern Blood Pressure 204/100 H 221/95 H 221/95 H Blood Pressure Mean 134 137 137 Pulse Ox 92 92 92 Oxygen Delivery Method Room Air Room Air Room Air Weight Weight: 234 lb 9.149 oz Body Mass Index (BMI) 31.8 Physical Exam Narrative Physical Examination: General: Awake, alert, oriented x 3 and cooperative, seated upright in the ED b ed, fatigued and ill-appearing, congested, mildly hoarse voice from coughing. Skin: Normal color, normal turgor, no icterus, no cyanosis except occasional staged ecchymoses. HEENT: AT/NC, EOMI, PERRLA, dry MM, no carotid bruits or JVD noted. Lungs: Diffusely diminished, greater bases, proper effort, no evidence of any distress, no rales, ronchi or wheezing. Heart: Currently regular rate and rhythm; no gallop, rub audible. Abdomen: Soft, obese, NTTP, mildly hyperactive BS, difficult to discern d istention and HSM given habitus. Extremities: No cyanosis, no clubbing, mild ankle not markedly pitting edema. Neurological: Patient awake, alert, oriented as noted, cognitive function intact; pupils equally reactive to light and accommodation, cranial nerves II- XII grossly normal, moving all 4 extremities, no focal deficits, strength severely global decrease secondary to acute presentation. Psychiatric: Affect appears flat, fatigued, ill-appearing, no acute evidence of depressive or anxiety feelings. Results Lab / Micro Data 12/27/22 17:08 12/27/22 17:08 Labs: Laboratory Results - last 24 hr 12/27/22 17:08: WBC 5.3, RBC 5.00, Hgb 14.9, Hct 45.6, MCV 91.2, MCH 29.8, MCHC 32.7, RDW Std Deviation 45.7 H, RDW Coeff of Peggy 13.6, Plt Count 123 L, MPV 10.7, Immature Gran % (Auto) 0.400, Neut % (Auto) 72.4 H, Lymph % (Auto) 12.7 L, [place] % (Auto) 13.1 H, Eos % (Auto) 0.8, Baso % (Auto) 0.6, Absolute Neuts (auto) 3.8, Absolute Lymphs (auto) 0.67 L, Nucleated RBC % 0, Sodium 132 L, Potassium 4.5, Chloride 99, Carbon Dioxide 26.0, Anion Gap 7, BUN 26 H, Creatinine 2.25 H, Estim Creat Clear Calc 30.18, Est GFR (MDRD) Af Amer 37 L, Est GFR (MDRD) Non-Af 30 L, BUN/Creatinine Ratio 11.6, Glucose 414 H, Calcium 9.0 Radiology Impression Chest X-Ray 12/27/22 17:04 IMPRESSION: Nonacute portable x-ray examination of the chest. Electronically Signed: Judah Herrera MD (Brooks) at 18:12 EDT , Assessment & Plan Assessment/Plan (1) COVID-19: PLAN: Plan The patient is a 77 y/o M w/ PMHx: CKD stage III unclear subtype, CAD, Hx VF Cardiac arrest s/p pacer/AICD, HFpEF/Ischemic cardiomyopathy, Obesity, Tobacco use, HTN, HLD, Hypothyroidism, Allergic rhintis who presents to the [facility] ED on 12/27/22 with history of several days of increased fatigue, malaise, difficulty even performing tasks with dyspnea worse with exertion with poor appetite and diarrhea with home COVID test on Thursday noted to be positive when patient worsened with concurrent fevers and chills at home prompting eventual EMS call with noted hypoxia for squad of 88% on room air prompting transition to the ED for evaluation. #1. Acute Hypoxia (decreased to 88%on RA, improved with rest) secondary to Acute Viral Syndrome, COVID-19 with resulting Adult Failure to Thrive: Will admit to the [facility] telemetry, maintain on COVID precautions, will maintain on oxygen with wean as tolerated to room air, PRN albuterol, HOB, IS parameters w/ pending sputum cultures, respiratory viral panel and urine antigens, will obtain liver profile, D-dimer, procalcitonin, CRP, CPK, Ferritin, LDH, trop and BNP, continue supportive, will initiate and continue IV decadron x 10 doses, currently presentation with oxygenation </= 94% and not requiring oxygen supplementation but clinically would be high risk given medical history, thus will continue with administration of given IV remdesivir with currently CrCl >/= 30 but will closely monitor CMP daily to assure creatinine clearance remains >/= 30, PT/OT/CM consultations for discharge planning. #2. CAD with history of V-fib cardiac arrest: Status post pacer/AICD placement, will continue aspirin, Plavix, statin, Coreg home regimen, not on GRETCHEN inhibitors or ARB per review of current list. Of note recent 10/22/2022 stress testing noted to be abnormal with reduced EF with basal inferior, mid inferior and basal inferior lateral infarct but no ischemia noted suspected likely with prior insults with arrest. Last interrogation noted 10/10/2022. Will continue aspirin, Plavix, Coreg, statin therapy, not on GRETCHEN inhibitor/ARB nor diuretic therapy. #3. HFpEF/Ischemic cardiomyopathy: 02/02/2022 echocardiogram with normal LV size, EF 55%, mild segmental systolic dysfunction, LA mildly enlarged, try sinus/trileaflet aortic valve, but bubble contrast study negative compared to previous ventricular function similar. Given history we will very cautiously hy drate as needed, continue aspirin, Plavix, Coreg, statin therapy, not on GRETCHEN inhibitor/ARB nor diuretic therapy. Given COVID certainly could pulse dose IV Lasix if necessary if becomes fluid overloaded. #4. Chronic Kidney Disease Stage III, unclear subtype with solitary kidney: Admission BUN/Cr 26/2.25, baseline renal function primarily 1.8-2.4 although most recently 10/27/2022 creatinine 1.97, repeat CMP in AM. #5. Diabetes mellitus type II with hyperglycemia, poorly controlled: Hold oral home regimen, continue home insulin regimen, ADA diet if able to tolerate otherwise with acute presentation may de-escalate to clears and advance slowly as tolerated, may need to adjust insulin regimen given planned steroid usage as noted #1, maintain on overlapping accu checks w/ ISS. Most recently reviewed HgbA1c 09/05/21 11.6%, will repeat at this time as expect notable hyperglycemia with steroid usage also. #6. Hypertension, uncontrolled: BP significantly elevated upon ED arrival, potentially related with acute presentation as noted #1, will for now continue home regimen including Coreg with additional oral regimen pending response to treatment of acute presentation but in the interim we will have PRN hydralazine with dose x1 to be administered in the ED now. #7. Hyperlipidemia: We will continue patient on statin therapy. #8. Hypothyroidism: Continue home synthroid regimen. #9. Obesity: Weight loss and lifestyle changes encouraged. #10. Tobacco Abuse: Encouraged continued tobacco cessation. #11. Allergic rhinitis: We will verify patient allergy regimen as from current list taking fexofenadine with pseudoephedrine and would prefer avoidance of taking this frequently. #12. DVT prophylaxis: Lovenox 30 mg SC BID per COVID order set based on BMI and renal function. #13. CODE status: Patient HCPMELLO is his significant who is present and also his son and living will is reportedly in place. Discussed CODE status at length including difference between FULL code, DNR-CCA and DNR-CC status. Following discussions about the differences in these status, requested Full Code status. Amenable to BIPAP/airvo/antiviral regimen per discussions. Advanced Care Planning Face to Face Time: 16 minutes. Charges/Coding Visit Charges Inpatient E&M: 58584 Init Hosp L3 Procedures Hospitalists Procedures: 26351 Advncd Care Plan 30 Min
[2022-12-27] MEDS: Carvedilol 25 MG Tablet PO ×2 (18:38→23:05)
[2022-12-27] MEDS: 0.9% Normal Saline (1000mL) 1,000 ML 999 ML IV (18:40)
[2022-12-27] MEDS: Insulin Lispro 100 UNIT/ML INSULN.PEN 12 UNIT SC (18:41)
[2022-12-27] MEDS: dexAMETHasone 10 MG/ML Vial 6 MG IV (18:55)
[2022-12-27] MEDS: hydrALAZINE 20 MG/ML Vial IV (18:56)
[2022-12-27 19:04] LABS: D-Dimer Quantitative (DVT/PE) 0.99 FEU/ug/m (0.27-0.49)
[2022-12-27 19:10] LABS: AST(SGOT) 32 U/L (15-37); Alanine Aminotransfer ALT/SGPT 38 U/L (16-61); Alkaline Phosphatase 66 U/L (45-117); Bilirubin, Direct 0.14 mg/dL (0.00-0.30); CPK Total, Creatine Kinase 170 U/L (39-308); Ferritin 328 ng/mL (26-388); Globulin 4.3 g/dL (2.2-4.2); LDH 272 U/L (87-241); Protein, Total 7.3 g/dL (6.4-8.2); Troponin-I HS 46 pg/mL (3.0-78.0)
[2022-12-27 19:21] LABS: BNP,B-Type NATRIURETIC PEPTIDE 365.7 pg/mL (0-100)
[2022-12-27 19:51] LABS: Procalcitonin 0.24 ng/mL (0.00-0.09)
[2022-12-27] MEDS: Insulin Lispro 100 UNIT/ML INSULN.PEN SC (22:38)
[2022-12-27 23:02] LABS: Bedside Glucose 415 mg/dL (74-106)
[2022-12-27] MEDS: Magnesium Chloride 64 MG Delay Rel.Tablet 128 MG PO (23:05)
[2022-12-27] MEDS: Atorvastatin Calcium 40 MG Tablet PO (23:05)
[2022-12-27] MEDS: 0.9% Normal Saline (1000mL) 1,000 ML 100 ML IV (23:05)
[2022-12-27] MEDS: Menthol/Lanolin/Calamine/Znox 113 GM Tube 1 APPLIC TOPICAL (23:06)
[2022-12-27] MEDS: Pyridoxine HCl 50 MG Tablet PO (23:06)
[2022-12-27] MEDS: Enoxaparin 30 MG/0.3 ML Syringe SC (23:06)
[2022-12-27] MEDS: Remdesivir 200 MG in 0.9% Normal Saline (250mL Bag) 210 ML 250 MG IV (23:07)
[2022-12-28] VITALS (8 sets, daily range): BP systolic 144–164; BP diastolic 72–83; PULSE 64–69; RESP 18–20; TEMP 36.4–37.2; O2SAT 91–96
[2022-12-28] MEDS: Pyridoxine HCl 50 MG Tablet PO ×3 (06:00→22:39)
[2022-12-28] MEDS: Levothyroxine 100 MCG Tablet PO ×3 (06:00→11:30)
[2022-12-28] MEDS: Insulin Lispro 100 UNIT/ML INSULN.PEN SC ×4 (06:01→22:43)
[2022-12-28 06:23] LABS: Bedside Glucose 364 mg/dL (74-106)
[2022-12-28 06:27] LABS: Absolute Lymphocyte Count 0.66 X10^3/uL (0.83-4.51); Absolute Neutrophil Count 5.8 X10^3/uL (2.0-7.7); Basophil# 0.01 X10^3/uL; Basophil% 0.1 % (0-1); Hematocrit 41.6 % (40-54); Hemoglobin 13.5 g/dL (13.0-16.5); Lymphocyte # 0.66 X10^3/ul (0.83-4.51); Lymphocyte % 9.7 % (19-41); Mean Corp Hgb Conc 32.5 g/dL (32-36); Mean Corpuscular Hgb 29.9 pg (27.0-32.0); Mean Platelet Vol. 10.5 fl (6.2-12.0); Monocyte# 0.37 X10^3/uL; Monocyte% 5.4 % (0-10); NRBC Flagged by Analyzer 0 % (0-5); Neutrophil # 5.77 X10^3/uL (2.7-7.7); Neutrophil % 84.7 % (47-70); Platelet Count 113 K/mm3 (150-450); RBC Distribution Width CV 13.4 % (11.6-14.6); RBC Distribution Width SD 45.5 fl (35.1-43.9); Red Blood Count 4.52 M/mm3 (4.6-6.2); White Blood Count 6.8 K/mm3 (4.4-11.0)
[2022-12-28 07:00] LABS: ALB/GLOB Ratio 0.6 RATIO (0.9-2.4); AST(SGOT) 22 U/L (15-37); Alanine Aminotransfer ALT/SGPT 27 U/L (16-61); Albumin, Serum 2.3 g/dL (3.2-5.0); Alkaline Phosphatase 55 U/L (45-117); Anion Gap 8 (5-15); BUN 27 mg/dL (7-18); BUN/Creat Ratio 14.1 RATIO (10-20); Calcium,Total 8.5 mg/dL (8.5-10.1); Chloride 103 mmol/L (98-107); Creatinine, Serum 1.91 mg/dL (0.70-1.30); EST Glomerular Filtration Rate 37 mL/min (>60); Est Glom Filt Rate - Afr Amer 44 mL/min (>60); Estimated Creatinine Clearance 35.55 ml/min; Glucose 405 mg/dL (74-106); Potassium 4.6 mmol/L (3.5-5.1); Protein, Total 6.3 g/dL (6.4-8.2); Sodium Level 132 mmol/L (136-145)
[2022-12-28] MEDS: Carvedilol 25 MG Tablet PO ×2 (08:11→17:02)
[2022-12-28] MEDS: Insulin Lispro 100 UNIT/ML INSULN.PEN 50 UNIT SC ×3 (08:11→16:57)
[2022-12-28 08:49] LABS: Hemoglobin A1c 11.5 % (3.8-5.6)
--- NOTE | 2022-12-28 09:55 | VDLE_ITS ---
Reason For Study: Elevated D Dimer RIGHT LEFT GSV is normal. GSV is normal. CFV is patent and compressible. CFV is patent and compressible. FV is patent and compressible FV is patent and compressible POP V is patent and compressible. POP V is patent and compressible. T/P Trunk is compressible. T/P Trunk is compressible. PTV is compressible. PTV is compressible. RT PerV is compressible. LT PerV is compressible. Procedure This is a venous duplex using B-mode, color flow and spectral Doppler. Exam performed portable in patient room. The exam was abbreviated due to the COVID 19 protocol. The exam was diagnostic. A preliminary report was called and/or faxed to M/S 3 RN. VL/Venous Duplex US - [place] Extrem Interpretation Summary Deep veins of the bilateral lower extremities are patent and compressible segme ntally. There is no evidence of bilateral lower extremity deep vein thrombosis. The bilateral great saphenous veins appear patent and compressible segmentally. Ordering Physician: Amanda Wick Referring Physician: Nathen Chang MD Performed By: Xu Bose RVT
[2022-12-28] MEDS: 0.9% Saline Lock 10 ML Syringe IV (11:28)
[2022-12-28] MEDS: dexAMETHasone 4 MG/ML Vial 6 MG IV (11:28)
[2022-12-28] MEDS: Enoxaparin 30 MG/0.3 ML Syringe SC ×2 (11:28→22:39)
[2022-12-28] MEDS: Clopidogrel Bisulfate 75 MG Tablet PO (11:33)
[2022-12-28] MEDS: Aspirin E.C. 81 MG Tablet PO (11:33)
[2022-12-28 12:05] LABS: Bedside Glucose 287 mg/dL (74-106)
[2022-12-28] MEDS: Menthol/Lanolin/Calamine/Znox 113 GM Tube 1 APPLIC TOPICAL ×3 (13:35→22:46)
--- NOTE | 2022-12-28 13:52 | PN_ITS ---
Subjective Subjective Patient seen and examined. He had no active complaints and feels much better. He is on room air. He denies any fever, chills, cough, chest pain, palpitations, dizziness, nausea, vomiting or any other complaints. Review of systems is otherwise negative. He has remained hemodynamically stable. Objective Data Objective Data Vital Signs: Vital Signs Temp Pulse Resp BP Pulse Ox O2 Del Method 98.2 F 65 20 H 150/81 H 96 Room Air 12/28/22 08:13 12/28/22 08:13 12/28/22 10:00 12/28/22 08:13 12/28/22 08:25 12/28/22 10:00 Oxygen Delivery Method Room Air Weight: 238 lb 8.642 oz Body Mass Index (BMI) 32.3 Intake & Output: Intake and Output for Last 24 Hours 12/26/22 12/27/22 12/28/22 23:59 23:59 23:59 Intake Total 1999 1510 / 1510 Output Total 870 / 870 Balance 1999 640 / 640 Lab / Micro Data 12/28/22 06:19 12/28/22 06:19 Labs: Laboratory Results - last 24 hr 12/27/22 17:08: WBC 5.3, RBC 5.00, Hgb 14.9, Hct 45.6, MCV 91.2, MCH 29.8, MCHC 32.7, RDW Std Deviation 45.7 H, RDW Coeff of Peggy 13.6, Plt Count 123 L, MPV 10.7, Immature Gran % (Auto) 0.400, Neut % (Auto) 72.4 H, Lymph % (Auto) 12.7 L, [place] % (Auto) 13.1 H, Eos % (Auto) 0.8, Baso % (Auto) 0.6, Absolute Neuts (auto) 3.8, Absolute Lymphs (auto) 0.67 L, Nucleated RBC % 0, D-Dimer Quant (PE/DVT) 0.99 H*, Sodium 132 L, Potassium 4.5, Chloride 99, Carbon Dioxide 26.0, Anion Gap 7, BUN 26 H, Creatinine 2.25 H, Estim Creat Clear Calc 30.18, Est GFR (MDRD) Af Amer 37 L, Est GFR (MDRD) Non-Af 30 L, BUN/Creatinine Ratio 11.6, Glucose 414 H, Calcium 9.0, Ferritin 328, Total Bilirubin 0.40, Direct Bilirubin 0.14, AST 32, ALT 38, Alkaline Phosphatase 66, Lactate Dehydrogenase 272 H, Total Creatine Kinase 170, Troponin I High Sens 46, C-React Prot Ext Range 70.20 H, B- Natriuretic Peptide 365.7 H, Total Protein 7.3, Albumin 3.0 L, Globulin 4.3 H 12/27/22 18:59: Procalcitonin 0.24 H 12/27/22 22:37: POC Glucose 415 H 12/28/22 05:59: POC Glucose 364 H 12/28/22 06:19: WBC 6.8, RBC 4.52 L, Hgb 13.5, Hct 41.6, MCV 92.0, MCH 29.9, MCHC 32.5, RDW Std Deviation 45.5 H, RDW Coeff of Peggy 13.4, Plt Count 113 L, MPV 10.5, Immature Gran % (Auto) 0.100, Neut % (Auto) 84.7 H, Lymph % (Auto) 9.7 L, [place] % (Auto) 5.4, Eos % (Auto) 0.0, Baso % (Auto) 0.1, Absolute Neuts (auto) 5.8, Absolute Lymphs (auto) 0.66 L, Nucleated RBC % 0, Sodium 132 L, Potassium 4.6, Chloride 103, Carbon Dioxide 21.0, Anion Gap 8, BUN 27 H, Creatinine 1.91 H , Estim Creat Clear Calc 35.55, Est GFR (MDRD) Af Amer 44 L, Est GFR (MDRD) Non- Af 37 L, BUN/Creatinine Ratio 14.1, Glucose 405 H, Hemoglobin A1c 11.5 H, Calcium 8.5, Total Bilirubin 0.40, AST 22, ALT 27, Alkaline Phosphatase 55, Total Protein 6.3 L, Albumin 2.3 L, Globulin 4.0, Albumin/Globulin Ratio 0.6 L 12/28/22 11:26: POC Glucose 287 H Micro: Microbiology 12/27/22 18:38 Mucosa - Nasopharyngeal Coronavirus COVID-19 PCR - Final SARS-CoV-2 (COVID 19) 12/28/22 03:30 Urine, Clean Catch Streptococcus pneumoniae Antigen (M - Final 12/28/22 03:30 Urine, Clean Catch Legionella Antigen - Final 12/27/22 14:00 Mucosa - Nasopharyngeal Respiratory Panel (PCR) - Final Radiography Diagnostic Testing: Radiology Impression Chest X-Ray 12/27/22 17:04 IMPRESSION: Nonacute portable x-ray examination of the chest. Electronically Signed: Judah Herrera MD (Brooks) at 18:12 EDT Reading Location ID and State: [facility] / [place] , Service support , Physical Exam Const alert, oriented x3 and no apparent distress HEENT normocephalic and head/scalp atraumatic Mouth: dry mucous membranes Neck no lymphadenopathy and supple Lymph Lymphatic: no lymphadenopathy noted and no lymphedema noted Resp Resp Narrative: mildly diminished breath sounds bibasally, no wheezes or crackles. On room air. Cardio regular rate, regular rhythm, S1 normal heart sound and S2 normal heart sound GI normal to inspection, nondistended, normoactive bowel sounds, soft to palpation, non-tender and non-distended Extremity normal capillary refill, no clubbing, cyanosis or edema and no calf tenderness General Extremity: no tenderness to palpation of joints or extremities Skin General Skin Exam: no breakdown Neuro CN's II-XII intact bilaterally, no focal motor deficits and no sensory deficits noted Motor Exam: strength 5/5 throughout and general weakness Psych thought process normal, cooperative and affect normal Appearance: appropriate Assessment & Plan Assessment/Plan (1) Adult failure to thrive: (2) COVID-19: PLAN: Plan #Hypoxia due to COVID 19 infection * now on room air * covid test was positive * on IV remdesivir * breathing treatment with bronchodilators * give oxygen as needed and titrate to maintain sats >90% * on remdesivir and decadron. * #CAD * has a history of ventricular fibrillation and is s/p ICD insertion. * had abnormal stress test in October 2022 which showed reduced EF with basal and mid inferior as well as laeral infarct, but no ischemia. * on aspirin, plavix, coreg, statin. Not on GRETCHEN or ARB. * #HFpEF: has known EF of 55% On aspirin, plaix and coreg #CKD III: creatinine is at baseline. Will monitor #TYpe 2 diabetes mellitus * on lantus. ISS. Accuchecks ACHS * #Hyprtension; was elevated on admission. on carvedilol #Hyperlipidemia: on statin #Hypothyroidism: on synthroid #Obesity: complicates acute care, expected recovery adn prognosis #Nicotine dependence: counseled to quit. DVT prophylaxis: lovenox Charges/Coding Visit Charges Inpatient E&M: 76749 Subs Hosp L2
[2022-12-28 17:35] LABS: Bedside Glucose 277 mg/dL (74-106)
[2022-12-28] MEDS: Remdesivir 100 MG in 0.9% Normal Saline (250mL Bag) 230 ML 250 MG IV (22:38)
[2022-12-28] MEDS: Atorvastatin Calcium 40 MG Tablet PO (22:39)
[2022-12-28] MEDS: Magnesium Chloride 64 MG Delay Rel.Tablet 128 MG PO (22:39)
[2022-12-28] MEDS: Insulin Glargine-YFGN 100 UNIT/ML Pen 63 UNIT SC (22:48)
--- NOTE | 2022-12-28 23:00 | NURSING ---
Patient refused 63 units of glargine insulin at hs. only would take 20units. Made Aware.Blood sugar 163
[2022-12-28 23:17] LABS: Bedside Glucose 163 mg/dL (74-106)
[2022-12-29 03:30] VITALS: BP 158/81; PULSE 62; RESP 18; TEMP 36.5; O2SAT 95
[2022-12-29 05:42] VITALS: BMI 32.8
[2022-12-29 06:00] VITALS: BMI 32.8
[2022-12-29 07:10] VITALS: O2SAT 95
[2022-12-29] MEDS: Pyridoxine HCl 50 MG Tablet PO ×2 (08:23→15:27)
[2022-12-29] MEDS: Carvedilol 25 MG Tablet PO (08:23)
[2022-12-29] MEDS: Clopidogrel Bisulfate 75 MG Tablet PO (08:23)
[2022-12-29] MEDS: Aspirin E.C. 81 MG Tablet PO (08:23)
[2022-12-29] MEDS: Insulin Lispro 100 UNIT/ML INSULN.PEN SC ×3 (08:24→12:16)
[2022-12-29] MEDS: Insulin Lispro 100 UNIT/ML INSULN.PEN 50 UNIT SC ×2 (08:24→11:39)
[2022-12-29 08:49] LABS: Bedside Glucose 436 mg/dL (74-106)
[2022-12-29 09:00] VITALS: BP 144/78; PULSE 72; RESP 18; TEMP 36.7; O2SAT 93
[2022-12-29] MEDS: Enoxaparin 30 MG/0.3 ML Syringe SC (11:37)
[2022-12-29] MEDS: Menthol/Lanolin/Calamine/Znox 113 GM Tube 1 APPLIC TOPICAL (11:38)
[2022-12-29 12:04] LABS: Bedside Glucose 492 mg/dL (74-106)
--- NOTE | 2022-12-29 12:04 | NURSING ---
pt blood glucose 492, scheduled insulin given, paged about sliding scale
--- NOTE | 2022-12-29 13:30 | CASEMGMT ---
KOSTAS NEELY Face to Face with patient for initial transition planning/care coordination assessment. RN CHIN introduced self and role at [facility]. Patient lying in bed, alert and oriented on RA. Patient willing to participate in assessment and is able to answer all questions appropriately. Care providers, pharmacy, and demographics verified. Patient wishes to discharge home, denies need for home health at this time. Patient states he has no further needs or concerns at this time. CM to follow for discharge planning needs that may arise. PCP:Bernardo Specialists:GWEN, cardio Preferred Pharmacy:[facility] Insurance:[employer] [facility] Prescription Benefit: yes LNOK:Clark Sousa, son; Mabel Pate, sig other Living Arrangements:Pt lives in a single story home with 3-4 steps to enter with a rail with his sig other. He reports being I in ADL's and denies concerns at home. Pt states he is stronger now than when he first came in. Transportation: Pt drives self and denies concerns with transportation. DME:Pt has a cane that he mostly uses, FWW, BGM with sufficient supplies of strips and lancets. Pt has insulin and sufficient supplies. HHC:None SNF:None Disposition Plan:Home
--- NOTE | 2022-12-29 14:28 | DCINST_ITS ---
Discharge Instructions Diet Discharge Diet: 1800 Calorie Control Diet and - (Carbohydrate consistent) Activity Discharge Activity: Return to Normal Activity Follow Up Care Test Results: Test results from this visit will be discussed in further detail at your follow- up appointment, if applicable. Discharge Plan Admission Admit Date/Time: 12/27/22 18:32 Primary Reason for Your Visit: Shortness of breath and COVID Attending Provider: Cecy Antunez Primary Care Provider: Nathen Chang Consulting Providers: Gela Salinas; Amanda Wick Instructions Patient Instructions: Disinfecting Your Home of COVID-19, How COVID-19 Spreads Additional Instructions / Restrictions: DISCHARGE INSTRUCTIONS PLEASE READ *Please take this with you to your next doctors appointment* -You will take 7 additional doses of Decadron with next dose 12/30 -You will need to isolate for 5 days after your positive for COVID and then mask for an additional 5 days -It will be important that you monitor your glucose closely as steroids are known to increase blood sugars and your hemoglobin A1c was 11.5, would recommend following up closely with your physician for further monitoring and management of this -Please call your primary care provider's office upon discharge to schedule a hospital follow up within 1 week. -For any concerning signs or symptoms please call 911 or proceed to the nearest emergency department Discharge Orders/Prescriptions Prescriptions: New dexamethasone 6 mg tablet 6 mg PO DAILY 7 Days Qty: 7 0RF Continued levothyroxine 100 mcg capsule 100 mcg capsule 100 mcg PO QDAY cholecalciferol (vitamin D3) 125 mcg (5,000 unit) capsule 125 mcg PO DAILY aspirin 81 MG tablet,delayed release (DR/EC) 81 mg PO DAILY Patient Comments: BLOOD THINNER fexofenadine-pseudoephedrine 1 TAB.SR tablet extended release 24 hr 1 tab.sr PO DAILY Hold Instructions: Advised to take it as needed for nasal congestion, cold symptoms/allergic rhinitis Patient Comments: DIRECTED insulin glargine 100 unit/mL (3 mL) Insulin Pen 63 unit SUBCUT QPM acetaminophen [Tylenol Extra Strength] 500 mg tablet 1,000 mg PO Q6H PRN (Reason: pain) Qty: 20 0RF rosuvastatin 20 mg tablet 20 mg PO DAILY Qty: 30 2RF clopidogrel 75 mg tablet 75 mg PO DAILY insulin lispro [Humalog KwikPen Insulin] 100 unit/mL insulin pen 50 unit subcut TIDAC pyridoxine (vitamin B6) 50 mg tablet 50 mg PO TID Patient Comments: 1 (one) Tablet three times daily with meals magnesium oxide 400 mg magnesium tablet 400 mg PO QHS Patient Comments: TAKE 1 TABLET BY MOUTH AT BEDTIME carvedilol 25 mg tablet 25 mg PO BID Qty: 180 3RF Referrals / Follow Up: Nathen Chang MD [Primary Care Provider] - Within 1 Week Disposition Disposition (needs filled in before D/C Order can be placed): Home, Self Care
[2022-12-29 14:30] VITALS: O2SAT 92; O2SAT 95
--- NOTE | 2022-12-29 14:33 | PCM.DC.SUM ---
Providers Date of Admission: 12/27/22 Date of Discharge: 12/29/22 Primary Care Physician: Dr. Nathen Chang MD Reason For Visit: HYPOXIA, COVID-19 Diagnosis Discharge Diagnosis (1) Adult failure to thrive: Status: Acute Code(s): R62.7 - Adult failure to thrive (2) COVID-19: Status: Acute Code(s): U07.1 - COVID-19 Plan #COVID 19 #DMII #Hx AICD #Hypothyroid #HTN #CKDIII and solitary kidney Medications at Discharge Home Medications aspirin 81 mg tablet,delayed release 81 mg PO DAILY heart health 01/20/16 fexofenadine-pseudoephedrine ER 180 mg-240 mg tablet,ext.release 24 hr 1 tab.sr PO DAILY allergies 01/20/16 levothyroxine 100 mcg capsule 100 mcg PO QDAY thyroid 08/20/17 cholecalciferol (vitamin D3) 125 mcg (5,000 unit) capsule 125 mcg PO DAILY vitamin 01/15/21 acetaminophen 500 mg tablet (Tylenol Extra Strength) 1,000 mg (2 x 500 mg) PO Q6H PRN pain #20 tabs 10/22/21 insulin glargine 100 unit/mL (3 mL) subcutaneous pen 63 unit subcut QPM diabetes 10/22/21 carvedilol 25 mg tablet 25 mg PO BID #180 tabs 11/27/21 rosuvastatin 20 mg tablet 20 mg PO DAILY #30 tabs 02/03/22 clopidogrel 75 mg tablet 75 mg PO DAILY 07/20/22 insulin lispro 100 unit/mL subcutaneous pen (Humalog KwikPen (U-100) Insulin) 50 unit subcut TIDAC 07/20/22 magnesium oxide 400 mg PO QHS 12/27/22 pyridoxine (vitamin B6) 50 mg tablet 50 mg PO TID 12/27/22 dexamethasone 6 mg tablet 6 mg PO DAILY 7 days #7 tabs 12/29/22 Hospital Course Summary of Care Provided Minutes Spent on Discharge: 36 Hospital Course: The patient is a 77 y/o M w/ PMHx: CKD stage III unclear subtype, CAD, Hx VF Cardiac arrest s/p pacer/AICD, HFpEF/Ischemic cardiomyopathy, Obesity, Tobacco use, HTN, HLD, Hypothyroidism, Allergic rhintis who presents to the [facility] ED on 12/27/22 with history of several days of increased fatigue, malaise, sore throat, dyspnea on exertion and positive home COVID test on Thursday. Given worsening EMS was called and patient was 88% on room air and transition to the ED. He was admitted and started on dexamethasone and remdesivir. Patient improved significantly, given he is on room air and respiratory status improving did not think patient needed to remain in house for continued remdesivir and patient stable for discharge outpatient with continuation of dexamethasone. Of note patient had elevated glucoses- the night prior to discharge patient refused to 63 units of glargine and only took 20 and patient had elevated glucoses the next day, A1c indicates uncontrolled glucose with an A1c of 11.3, strongly advise close monitoring of his diabetes and close follow-up with physician, advised patient continue his home regimen, suspect glucose significantly elevated due to patient refusing full doses of insulin, continue to encourage compliance. On day of discharge patient reports still feeling overall not very well but better than presentation. He did not qualify for home O2. Physical Exam Narrative General: Alert, oriented, no apparent distress HEENT: Atraumatic, normocephalic Eyes: Anicteric, normal conjunctiva, extraocular movements grossly intact Neck: Supple Respiratory: Somewhat diminished at the bases, will cough when taking deep breaths so difficult to fully assess his breath sounds, normal respiratory effort Cardiovascular: Regular rate and rhythm GI: Soft, nontender, nondistended Extremities: No edema Musculoskeletal: Moving all extremities Neuro: No overt focal neurological deficits Skin: No rashes appreciated Psych: Cooperative Weight / BMI Weight Weight: 109.8 kg Body Mass Index (BMI) 32.8 ABG / Lab / Microbiology Data 12/28/22 06:19 12/28/22 06:19 Laboratory: Laboratory Results - last 24 hr 12/28/22 16:52: POC Glucose 277 H 12/28/22 22:41: POC Glucose 163 H 12/29/22 08:20: POC Glucose 436 H 12/29/22 11:36: POC Glucose 492 H* Microbiology: Microbiology 12/27/22 18:38 Mucosa - Nasopharyngeal Coronavirus COVID-19 PCR - Final SARS-CoV-2 (COVID 19) 12/28/22 03:30 Urine, Clean Catch Streptococcus pneumoniae Antigen (M - Final 12/28/22 03:30 Urine, Clean Catch Legionella Antigen - Final 12/27/22 14:00 Mucosa - Nasopharyngeal Respiratory Panel (PCR) - Final Radiography Diagnostic Testing: Radiology Impression Venous Doppler Study 12/28/22 09:55 Interpretation Summary Deep veins of the bilateral lower extremities are patent and compressible segmentally. There is no evidence of bilateral lower extremity deep vein thrombosis. The bilateral great saphenous veins appear patent and compressible segmentally. Ordering Physician: Amanda Wick Referring Physician: Nathen Chang MD Performed By: Xu Bose RVT D/C Instructions Discharge Diet: 1800 Calorie Control Diet and - (Carbohydrate consistent) Meaningful Use Info Meaningful Use Diagnoses (Choose all that apply): None applicable Discharge Plan Admission Admit Date/Time: 12/27/22 18:32 Primary Reason for Your Visit: Shortness of breath and COVID Attending Provider: Cecy Antunez Primary Care Provider: Nathen Chang Consulting Providers: Gela Salinas; Amanda Wick Instructions Patient Instructions: Disinfecting Your Home of COVID-19, How COVID-19 Spreads Additional Instructions / Restrictions: DISCHARGE INSTRUCTIONS PLEASE READ *Please take this with you to your next doctors appointment* -You will take 7 additional doses of Decadron with next dose 12/30 -You will need to isolate for 5 days after your positive for COVID and then mask for an additional 5 days -It will be important that you monitor your glucose closely as steroids are known to increase blood sugars and your hemoglobin A1c was 11.5, would recommend following up closely with your physician for further monitoring and management of this -Please call your primary care provider's office upon discharge to schedule a hospital follow up within 1 week. -For any concerning signs or symptoms please call 911 or proceed to the nearest emergency department Discharge Orders/Prescriptions Prescriptions: New dexamethasone 6 mg tablet 6 mg PO DAILY 7 Days Qty: 7 0RF Continued levothyroxine 100 mcg capsule 100 mcg capsule 100 mcg PO QDAY cholecalciferol (vitamin D3) 125 mcg (5,000 unit) capsule 125 mcg PO DAILY aspirin 81 MG tablet,delayed release (DR/EC) 81 mg PO DAILY Patient Comments: BLOOD THINNER fexofenadine-pseudoephedrine 1 TAB.SR tablet extended release 24 hr 1 tab.sr PO DAILY Hold Instructions: Advised to take it as needed for nasal congestion, cold symptoms/allergic rhinitis Patient Comments: DIRECTED insulin glargine 100 unit/mL (3 mL) Insulin Pen 63 unit SUBCUT QPM acetaminophen [Tylenol Extra Strength] 500 mg tablet 1,000 mg PO Q6H PRN (Reason: pain) Qty: 20 0RF rosuvastatin 20 mg tablet 20 mg PO DAILY Qty: 30 2RF clopidogrel 75 mg tablet 75 mg PO DAILY insulin lispro [Humalog KwikPen Insulin] 100 unit/mL insulin pen 50 unit subcut TIDAC pyridoxine (vitamin B6) 50 mg tablet 50 mg PO TID Patient Comments: 1 (one) Tablet three times daily with meals magnesium oxide 400 mg magnesium tablet 400 mg PO QHS Patient Comments: TAKE 1 TABLET BY MOUTH AT BEDTIME carvedilol 25 mg tablet 25 mg PO BID Qty: 180 3RF Referrals / Follow Up: Nathen Chang MD [Primary Care Provider] - Within 1 Week Disposition Disposition (needs filled in before D/C Order can be placed): Home, Self Care Charges/Coding Visit Charges Inpatient E&M: 16182 Disch Hosp >30min
--- NOTE | 2022-12-29 14:57 | PHA.DC.MR.R ---
Pharmacy [place] Med Reconciliation Pharmacy Service has performed discharge medication reconciliation for this patient. The patient's discharge medication list was reviewed for discrepancies and discrepancies were resolved. Medications at Discharge Home Medications aspirin 81 mg tablet,delayed release 81 mg PO DAILY heart health 01/20/16 fexofenadine-pseudoephedrine ER 180 mg-240 mg tablet,ext.release 24 hr 1 tab.sr PO DAILY allergies 01/20/16 levothyroxine 100 mcg capsule 100 mcg PO QDAY thyroid 08/20/17 cholecalciferol (vitamin D3) 125 mcg (5,000 unit) capsule 125 mcg PO DAILY vitamin 01/15/21 acetaminophen 500 mg tablet (Tylenol Extra Strength) 1,000 mg (2 x 500 mg) PO Q6H PRN pain #20 tabs 10/22/21 insulin glargine 100 unit/mL (3 mL) subcutaneous pen 63 unit subcut QPM diabetes 10/22/21 carvedilol 25 mg tablet 25 mg PO BID #180 tabs 11/27/21 rosuvastatin 20 mg tablet 20 mg PO DAILY #30 tabs 02/03/22 clopidogrel 75 mg tablet 75 mg PO DAILY 07/20/22 insulin lispro 100 unit/mL subcutaneous pen (Humalog KwikPen (U-100) Insulin) 50 unit subcut TIDAC 07/20/22 magnesium oxide 400 mg PO QHS 12/27/22 pyridoxine (vitamin B6) 50 mg tablet 50 mg PO TID 12/27/22 dexamethasone 6 mg tablet 6 mg PO DAILY 7 days #7 tabs 12/29/22
[2022-12-29 15:00] VITALS: BP 150/80; PULSE 76; RESP 18; TEMP 36.7; O2SAT 95
--- NOTE | 2022-12-29 15:21 | CASEMGMT ---
Pt does not qualify for home oxygen.
== END 2022-12-29 16:27 | disposition home or self-care (01) | DRG 178 ==
LOC: ED 18:42 → MS3 19:31
PROVIDERS: Nurse Practitioner; Student in an Organized Health Care Education/Training Program; Admitting Provider Family Medicine; Emergency Provider Emergency Medicine; PCP Family Medicine; Visit Provider Internal Medicine
DX: U07.1 COVID-19 (principal); I13.0 Hypertensive heart and chronic kidney disease with heart failure and stage 1 through stage 4 chronic kidney disease, or unspecified chronic kidney disease; I50.32 Chronic diastolic (congestive) heart failure; Q60.0 Renal agenesis, unilateral; E11.22 Type 2 diabetes mellitus with diabetic chronic kidney disease; N18.30 Chronic kidney disease, stage 3 unspecified; E11.65 Type 2 diabetes mellitus with hyperglycemia; Z79.4 Long term (current) use of insulin; E03.9 Hypothyroidism, unspecified; E78.5 Hyperlipidemia, unspecified; I25.10 Atherosclerotic heart disease of native coronary artery without angina pectoris; I25.5 Ischemic cardiomyopathy; J30.9 Allergic rhinitis, unspecified; E86.0 Dehydration; I25.2 Old myocardial infarction; R19.7 Diarrhea, unspecified; E66.9 Obesity, unspecified; R62.7 Adult failure to thrive; R09.02 Hypoxemia; T38.3X6A Underdosing of insulin and oral hypoglycemic [antidiabetic] drugs, initial encounter; Y63.6 Underdosing and nonadministration of necessary drug, medicament or biological substance; Z91.128 Patient's intentional underdosing of medication regimen for other reason; Y92.239 Unspecified place in hospital as the place of occurrence of the external cause; Z79.02 Long term (current) use of antithrombotics/antiplatelets; Z79.82 Long term (current) use of aspirin; Z87.891 Personal history of nicotine dependence; Z79.899 Other long term (current) drug therapy; Z95.810 Presence of automatic (implantable) cardiac defibrillator; Z68.32 Body mass index [BMI] 32.0-32.9, adult
CPT/HCPCS: 36415; 71045; 80048; 80053; 80076; 82550; 82728; 82962; 83036; 83615; 83880; 84145; 84484; 85025; 85379; 86140; 87449; 87633; 87635; 93005; 93970; 94668; 99285; J7030; J7050; A4216; J0248

== ENCOUNTER → 2023-01-05 | Outpatient (CLI) | payer MEDICARE, SELFPAY ==
[2023-01-05 15:20] LABS: Hemoglobin 15.5 g/dL (13.0-16.5); Mean Corp Hgb Conc 32.3 g/dL (32-36); Mean Corpuscular Hgb 29.9 pg (27.0-32.0); Mean Corpuscular Volume 92.7 fL (80-94); Mean Platelet Vol. 10.7 fl (6.2-12.0); POSITIVE COUNT YES; POSITIVE MORPHOLOGY YES; Platelet Count 193 K/mm3 (150-450); RBC Distribution Width CV 13.7 % (11.6-14.6); RBC Distribution Width SD 46.8 fl (35.1-43.9); Red Blood Count 5.18 M/mm3 (4.6-6.2); White Blood Count 12.4 K/mm3 (4.4-11.0)
[2023-01-05 15:37] LABS: Differential Indicated MANUAL DIFF
[2023-01-05 16:04] LABS: Lymphocyte 12 % (19-41); Monocyte 2 % (0-10); Myelocyte 2 % (0-0); Neutrophil-Band 1 % (0-5); Neutrophil-Segmented 83 % (47-70); Platelet Estimate ADEQUATE (ADEQ); Red Cell Morphology NORM C+C NORMAL (NORM C&C); Total Cells Counted 100 (MANUAL DIFF)
[2023-01-05 16:05] LABS: Absolute Lymphocyte Count 1.49 X10^3/uL (0.83-4.51); Absolute Neutrophil Count 10.4 X10^3/uL (2.0-7.7)
[2023-01-05 16:16] LABS: ALB/GLOB Ratio 0.7 RATIO (0.9-2.4); AST(SGOT) 71 U/L (15-37); Alanine Aminotransfer ALT/SGPT 112 U/L (16-61); Albumin, Serum 2.5 g/dL (3.2-5.0); Alkaline Phosphatase 54 U/L (45-117); Anion Gap 2 (5-15); BUN 37 mg/dL (7-18); BUN/Creat Ratio 19.8 RATIO (10-20); CRP < 2.90 mg/L (0.0-3.0); Calcium,Total 8.7 mg/dL (8.5-10.1); Chloride 101 mmol/L (98-107); Creatinine, Serum 1.87 mg/dL (0.70-1.30); EST Glomerular Filtration Rate 37 mL/min (>60); Est Glom Filt Rate - Afr Amer 45 mL/min (>60); Globulin 3.4 g/dL (2.2-4.2); Glucose 211 mg/dL (74-106); Potassium 5.1 mmol/L (3.5-5.1); Protein, Total 5.9 g/dL (6.4-8.2); Sodium Level 134 mmol/L (136-145)
[2023-01-05 18:36] LABS: Osmolality, Serum 302 mOsm/KG (280-301)
[2023-01-06 13:26] LABS: Pathologist Review Reviewed
== END | disposition home or self-care (01) ==
LOC: MFPLAB 12:11
PROVIDERS: PCP Family Medicine; Visit Provider Family Medicine
DX: U07.1 COVID-19 (principal); E11.39 Type 2 diabetes mellitus with other diabetic ophthalmic complication; E87.1 Hypo-osmolality and hyponatremia
CPT/HCPCS: 36415; 80053; 83036; 83930; 85025; 86140

== ENCOUNTER → 2023-05-29 | Outpatient (CLI) | payer MEDICARE, SELFPAY ==
--- OUTSIDE RECORDS SUMMARY | 2023-05-29 08:20 | XMS RPT_ITS | CCD ---
Author Name Unknown Address [address] [place] [address] Organization [facility] Care Team Providers Care Kettle Chipper Name Role Phone Roof SOLAR PV INSTALLER, Dequan Choe Unavailable Priscilla KENYON, Oralia Baltazar Unavailable Unavailable Nathen Chang Referring Unavailable Nathen Chang Primary Care Unavailable Kannan Da Silva Attending Unavailable Allergies Allergy Classification Reported Allergen(s) Allergy Type Date of Onset Reaction(s) Facility (2 sources) clopidogrel Drug Allergy 01-24-2016 low platelets [facility] Work Phone: [phone] (4 sources) NKDA; Translations: [NKDA] allergy to substance 01-24-2016 [facility] Work Phone: Medications Completed/Discontinued Medications Medication Drug Class(es) Dates Sig (Normalized) Sig (Original) amiodarone hydrochloride 200 mg oral tablet (2 sources) Antiarrhythmic Start: 01-24-2016 take 1 tablet by mouth once daily AMIODARONE HCL 200 MG TABS One tablet by mouth daily AMIODARONE HCL [id number] Christiano Molina MD aspirin 81 mg delayed release oral tablet (2 sources) Nonsteroidal Anti-inflammatory Drug Start: 01-24-2016 take 1 tablet by mouth once daily ASPIRIN EC 81 MG TBEC One tablet by mouth daily ASPIRIN [id number] Gretchen Marshall RN carvedilol 6.25 mg oral tablet (2 sources) alpha-Adrenergic Carol, beta-Adrenergic Carol Start: 01-24-2016 take 1 tablet by mouth twice daily COREG 6.25 MG TABS One tablet by mouth twice daily CARVEDILOL [id number] Gretchen Marshall RN fexofenadine hydrochloride 180 mg oral tablet (2 sources) Histamine-1 Receptor Antagonist Start: 02-11-2016 take 1 tablet by mouth once daily STACEY 180 MG TABS One tablet by mouth daily FEXOFENADINE HCL Christiano Molina MD furosemide 40 mg oral tablet (2 sources) Loop Diuretic Start: 08-11-2016 take 1 tablet by mouth twice daily LASIX 40 MG TABS One tablet by mouth twice daily FUROSEMIDE [id number] Christiano Molina MD insulin glargine 100 unt/ml injectable solution (2 sources) Insulin Analogue Start: 01-24-2016 LANTUS 100 UNIT/ML SOLN as directed INSULIN GLARGINE [id number] Gretchen Marshall RN insulin lispro 100 unt/ml injectable solution (2 sources) Insulin Analogue Start: 01-24-2016 HUMALOG 100 UNIT/ML SOLN as directed INSULIN LISPRO (HUMAN) [id number] Gretchen Marshall RN losartan potassium 25 mg oral tablet (2 sources) Angiotensin 2 Receptor Carol Start: 01-24-2016 take 1 tablet by mouth once daily COZAAR 25 MG TABS One tablet by mouth daily LOSARTAN POTASSIUM [id number] Gretchen Marshall RN magnesium oxide 400 mg oral capsule (2 sources) Start: 01-24-2016 take 1 tablet by mouth once daily MAGNESIUM OXIDE 400 MG CAPS One tablet by mouth daily MAGNESIUM OXIDE [id number] Gretchen Marshall RN pravastatin sodium 80 mg oral tablet (2 sources) HMG-CoA Reductase Inhibitor Start: 01-24-2016 take 1 tablet by mouth at bedtime PRAVACHOL 80 MG TABS One tablet by mouth at bedtime. 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] Onset: 01-24-2016 01-24-2016 Chronic Cardiac dysrhythmias (6 sources) Ventricular tachycardia; Translations: [Nonsustained ventricular tachycardia ] Onset: 01-24-2016 01-24-2016 Chronic Conduction disorders (4 sources) Presence of automatic (implantable) cardiac defibrillator; Translations: [Presence of automatic (implantable) cardiac defibrillator] Onset: 01-24-2016 01-24-2016 Chronic Congestive heart failure; nonhypertensive (2 sources) Unspecified systolic (congestive) heart failure; Translations: [Unspecified systolic (congestive) heart failure] Onset: 06-03-2018 Chronic Coronary atherosclerosis and other heart disease (12 sources) Atherosclerotic heart disease of [place] coronary artery without angina pectoris; Translations: [Generalized ischemic myocardial dysfunction] Onset: 01-24-2016 01-24-2016 Chronic Diabetes mellitus without complication (2 sources) Type 2 diabetes mellitus without complications; Translations: [Type 2 diabetes mellitus without complications] Onset: 06-03-2018 Chronic Disorders of lipid metabolism (4 sources) Hyperlipidemia; Translations: [Hyperlipidemia, unspecified] Onset: 01-24-2016 01-24-2016 Chronic Essential hypertension (4 sources) Hypertensive disorder; Translations: [Essential (primary) hypertension] Onset: 01-24-2016 01-24-2016 Chronic Other aftercare (2 sources) FDC (current) use of insulin; Translations: [termite exterminator helper (current) use of insulin] Onset: 06-03-2018 Episodic Other aftercare (2 sources) FDC (current) use of aspirin; Translations: [FDC (current) use of aspirin] Onset: 06-03-2018 Episodic Other and ill-defined heart disease (2 sources) Aneurysm of heart; Translations: [Aneurysm of heart] Onset: 01-24-2016 01-24-2016 Chronic Other nutritional; endocrine; and metabolic disorders (2 sources) Obesity, unspecified; Translations: [Obesity, unspecified] Onset: 06-03-2018 Chronic Other nutritional; endocrine; and metabolic disorders (2 sources) Body mass index (BMI) 32.0-32.9, adult; Translations: [Body mass index (BMI) 32.0-32.9, adult] Onset: 06-03-2018 Chronic Substance-related disorders (4 sources) Nicotine dependence; Translations: [Nicotine dependence, cigarettes, uncomplicated] Onset: 01-24-2016 01-24-2016 Chronic Thyroid disorders (2 sources) Hypothyroidism, unspecified; Translations: [Hypothyroidism, unspecified] Onset: 06-03-2018 Chronic Unclassified (4 sources) Body mass index (BMI) 34.0-34.9, adult; Translations: [Body mass index (BMI) 33.0-33.9, adult] Onset: 01-24-2016 02-11-2016 Chronic Unclassified (2 sources) Long-term drug therapy; Translations: [Other usp (current) drug therapy] Onset: 01-24-2016 01-24-2016 Past or Other Problems Problem Classification Problem Date Documented Da te Episodic/Chronic Unclassified (2 sources) Raised TSH level; Translations: [Abnormal results of thyroid function studies] Onset: 08-12-2016 08-12-2016 Episodic Results Test Name Value Interpretation Reference Range Facil ity Vital Signs Date Time Vital Sign Value Performing Clinician Chalo frazier 08-11-2016 12:34-0400 BMI (Body Mass Index) 35.53 kg/m2 [facility] Work Phone: 08-11-2016 12:34-0400 BP Diastolic 60 mm[Hg] [facility] Work Phone: 08-11-2016 12:34-0400 BP Systolic 118 mm[Hg] Oralia Wells RN [facility] Work Phone: 08-11-2016 12:34-0400 Height 182.88 cm Oralia Wells RN [facility] Work Phone: 08-11-2016 12:34-0400 Pulse (Heart Rate) 70 /min Oralia Wells RN [facility] Work Phone: 08-11-2016 12:34-0400 Respiratory Rate 18 /min [facility] Work Phone: 08-11-2016 12:34-0400 Weight 118.84 kg Oralia Wells RN [facility] Work Phone: 02-11-2016 09:03-0500 BSA (Body Surface Area) 2.35 m2 [facility] Work Phone: Encounters Encounter Date Encounter Type Care Provider Facility Start: 06-03-2018 Evaluation and manag ement of inpatient [facility] Procedures Date Procedure Procedure Detail Performing Clinician Start: 02-11-2017 End: 02-11-2017 *Hepatic Function Panel Christiano Molina MD Work Phone: Start: 12-09-2016 End: 02-04-2017 Follow Up Appt 3 months Christiano Molina MD Work Phone: Start: 12-09-2016 End: 12-12-2016 Interrogation eval remote 90 d 1/2/semi conductor assembler ld dfb Christiano Molina MD Work Phone: Start: 12-09-2016 End: 02-04-2017 Pac[facility] Clinic Christiano Molina MD Work Phone: Start: 08-29-2016 End: 02-04-2017 Follow Up Appt 3 months Elmo Maloney MD Start: 08-29-2016 End: 08-29-2016 Interrogation eval remote 90 d 1/2/semi conductor assembler ld dfb Elmo Maloney MD Start: 08-29-2016 End: 02-04-2017 Pacer Clinic Elmo Maloney MD Start: 08-11-2016 End: 08-12-2016 *BMP Christiano Molina MD Work Phone: Start: 08-11-2016 End: 08-12-2016 *Hepatic Function Panel Christiano Molina MD Work Phone: Start: 08-11-2016 End: 02-04-2017 DJN Christiano Molina MD Work Phone: Start: 08-11-2016 End: 02-04-2017 Follow Up Appt 6 months Christiano Molina MD Work Phone: Start: 08-11-2016 End: 08-12-2016 Lipid 1996 panel - Serum or Plasma Christiano Molina MD Work Phone: Start: 08-11-2016 End: 08-12-2016 Magnesium [Mass/volume] in Serum or Plasma Christiano Molina MD Work Phone: Start: 08-11-2016 End: 08-12-2016 Thyrotropin [Units/volume] in Serum or Plasma Christiano Molina MD Work Phone: Start: 08-11-2016 End: 08-12-2016 Thyroxine (T4) [Mass/volume] in Serum or Plasma Christiano Molina MD Work Phone: Start: 05-21-2016 End: 08-04-2016 Follow Up Appt 3 months Stefany dunham PA-C Work Phone: Start: 05-21-2016 End: 08-04-2016 Pacer Clinic Stefany West PA-C Work Phone: Start: 05-21-2016 End: 05-21-2016 Prgrmg eval implantable in prsn dual lead dfb Stefany West PA-C Work Phone: Start: 03-24-2016 End: 08-12-2016 *Hepatic Function Panel Christiano Molina MD Work Phone: Start: 03-24-2016 End: 08-12-2016 Lipid 1996 panel - Serum or Plasma Christiano Molina MD Work Phone: Start: 03-24-2016 End: 08-12-2016 Thyrotropin [Units/volume] in Serum or Plasma Christiano Molina MD Work Phone: Start: 03-24-2016 End: 08-12-2016 Thyroxine (T4) [Mass/volume] in Serum or Plasma Christiano Molina MD Work Phone: Start: 02-11-2016 End: 02-11-2016 DJN Christiano Molina MD Work Phone: Start: 02-11-2016 End: 02-11-2016 Ecg routine ecg w/least 12 lds w/i&r Christiano Molina MD Work Phone: Start: 02-11-2016 End: 02-11-2016 Follow Up Appt 6 months Christiano Molina MD Work Phone: Plan of Treatment Date Care Activity Detail Author Start: 03-17-2017 End: 03-17-2017 Appointment Appointment [facility] Work Phone: Start: 02-12-2017 End: 02-12-2017 Appointment Appointment [facility] Work Phone: Start: 02-11-2017 End: 02-11-2017 *Hepatic Function Panel *Hepatic Function Panel [facility] Work Phone: Start: 02-11-2017 End: 08-23-2016 Lipid panel [AGGREGATE] *Lipid Profile CC PCP [facility] Work Phone: Start: 12-09-2016 End: 02-04-2017 Follow Up Appt 3 months Follow Up Appt 3 months [facility] Work Phone: Start: 12-09-2016 End: 02-04-2017 Pacer Clinic [facility] Work Phone: Start: 08-29-2016 End: 02-04-2017 Follow Up Appt 3 months Follow Up Appt 3 months [facility] Work Phone: Start: 08-29-2016 End: 02-04-2017 Pacer Clinic [facility] Work Phone: Start: 08-11-2016 End: 08-12-2016 *BMP *BMP [facility] Work Phone: Start: 08-11-2016 End: 08-12-2016 *Hepatic Function Panel *Hepatic Function Panel [facility] Work Phone: Start: 08-11-2016 End: 02-04-2017 DJN DJN [facility] Work Phone: Start: 08-11-2016 End: 02-04-2017 Follow Up Appt 6 months Follow Up Appt 6 months [facility] Work Phone: Start: 08-11-2016 End: 08-12-2016 Lipid panel [AGGREGATE] *Lipid Profile CC PCP [facility] Work Phone: Start: 08-11-2016 End: 08-12-2016 Magnesium *Magnesium [facility] Work Phone: Start: 08-11-2016 End: 08-11-2016 Pulmonary Function Test - complete Pulmonary Function Test - complete [facility] Work Phone: Start: 08-11-2016 End: 08-12-2016 Thyroid stimulating hormone (TSH) *TSH [facility] Work Phone: Start: 08-11-2016 End: 08-12-2016 Thyroxine (T4) *T4 (Total) [facility] Work Phone: Start: 05-21-2016 End: 08-04-2016 Follow Up Appt 3 months Follow Up Appt 3 months [facility] Work Phone: Start: 05-21-2016 End: 08-04-2016 Pacer Clinic [facility] Work Phone: Start: 03-24-2016 End: 08-12-2016 *Hepatic Function Panel *Hepatic Function Panel [facility] Work Phone: Start: 03-24-2016 End: 08-12-2016 Lipid panel [AGGREGATE] *Lipid Profile CC PCP [facility] Work Phone: Start: 03-24-2016 End: 08-12-2016 Thyroid stimulating hormone (TSH) *TSH [facility] Work Phone: Start: 03-24-2016 End: 08-12-2016 Thyroxine (T4) *T4 (Total) [facility] Work Phone: Start: 02-11-2016 End: 02-11-2016 DJN DJN [facility] Work Phone: Start: 02-11-2016 End: 02-11-2016 Ecg routine ecg w/least 12 lds w/i&r EKG (In office) [facility] Work Phone: Start: 02-11-2016 End: 02-11-2016 Follow Up Appt 6 months Follow Up Appt 6 months [facility] Work Phone: Patient Education [id number] [facility] Work Phone: Payers Date Payer Category Payer Unknown [id number] Medicare Private Health Insurance Summary Purpose Family History No Family History Records FoundNo Family History Records Found Advance Directives No Advanced Directives Records FoundNo Advanced Directives Records Found Additional Source Comments (unrecognized sect ion and content) No Status Records FoundNo Status Records Found INFORMATION SOURCE (unrecogn ized section and content) DATE CREATED AUTHOR AUTHOR'S ORGANIZ ATION 06/15/2018 [facility] FOR RECORDS PERTAINING TO PATIENTS WHO ARE OR HAVE BEEN ENROLLED IN A CHEMICAL DEPENDENCY/SUBSTANCEABUSE PROGRAM, SOME INFORMATION MAY BE OMITTED. This clinical summary was aggregated from multiple sources. Caution should be exercised in using it in the provision of clinical care. This summary normalizes information from multiple sources, and as a consequence, information in this document may materially change the coding, format and clinical context of patient data. In addition, data may be omitted in some cases. CLINICAL DECISIONS SHOULD BE BASED ON THE PRIMARY CLINICAL RECORDS. [facility]. provides no warranty or guarantee of the accuracy or completeness of information in this document.
== END | disposition home or self-care (01) ==
LOC: MFPLAB 08:15
PROVIDERS: PCP Family Medicine; Visit Provider Family Medicine
DX: Z00.00 Encounter for general adult medical examination without abnormal findings (principal)

== ENCOUNTER 2023-08-06 20:25 | Observation (INO) | payer MEDICARE, SELFPAY ==
[2023-08-06] VITALS (7 sets, daily range): BP systolic 167–186; BP diastolic 76–121; PULSE 69–74; RESP 22–32; TEMP 36.4–36.8; O2SAT 92–98; BMI 33.4; BMI 33.0
--- NOTE | 2023-08-06 20:45 | EX.ED.DYSGE1 ---
HPI <RUTH ANN Fritz - Last Filed: 08/06/23 21:57> History of Present Illness Chief Complaint: Cough Narrative Narrative: Patient presenting today with cold-like symptoms that started 3 days ago. He reports that he has had headache, chills, nonproductive cough, and sneezing. His girlfriend is sick with similar symptoms. He laid down to rest and was unable to get out of bed due to feeling weak, prompting his girlfriend to call EMS. EMS noticed that his blood glucose was 500. Patient reports that he does have a history of T1DM, it is not unusual for him to have hyperglycemia and is working with his doctor to get this under control. He does take insulin daily and has had all of his normal doses today. He has not had much to eat today due to not feeling well. He denies any fevers, abdominal pain, nausea, vomiting, chest pain, and shortness of breath. 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) Solitary kidney Sustained ventricular tachycardia Ventricular fibrillation Home Medications fexofenadine-pseudoephedrine ER 180 mg-240 mg tablet,ext.release 24 hr 1 tab.sr PO DAILY allergies 01/20/16 [History Last Taken Unknown] levothyroxine 100 mcg capsule 100 mcg PO QDAY thyroid 08/20/17 [History Last Taken 12/22/19] cholecalciferol (vitamin D3) 125 mcg (5,000 unit) capsule 125 mcg PO DAILY vitamin 01/15/21 [History Last Taken Unknown] acetaminophen 500 mg tablet (Tylenol Extra Strength) 1,000 mg (2 x 500 mg) PO Q6H PRN pain #20 tabs 10/22/21 [Rx Last Taken Unknown] insulin glargine 100 unit/mL (3 mL) subcutaneous pen 63 unit subcut QPM diabetes 10/22/21 [History Last Taken Unknown] rosuvastatin 20 mg tablet 20 mg PO DAILY #30 tabs 02/03/22 [Rx Last Taken Unknown] insulin lispro 100 unit/mL subcutaneous pen (Humalog KwikPen (U-100) Insulin) 50 unit subcut TIDAC 07/20/22 [History Last Taken Unknown] magnesium oxide 400 mg PO QHS 12/27/22 [History Last Taken Unknown] pyridoxine (vitamin B6) 50 mg tablet 50 mg PO TID 12/27/22 [History Last Taken Unknown] dexamethasone 6 mg tablet 6 mg PO DAILY 7 days #7 tabs 12/29/22 [Rx Last Taken Unknown] carvedilol 25 mg tablet 25 mg PO BID #180 tabs 01/13/23 [Rx Last Taken Unknown] apixaban 5 mg tablet (Eliquis) 5 mg PO BID #180 tabs 04/09/23 [Rx Last Taken Unknown] Allergy/AdvReac Type Severity Reaction Status Date / Time amiodarone AdvReac Severe significant Verified 12/27/22 16:52 effect on lung function per PFT 09/19/17 Family History Father Colon cancer Mother No problems noted. Surgical History History of electrophysiologic study (10/21/12) History of implantable cardiac defibrillator (ICD) (04/12/12) History of left heart catheterization (01/21/16) Hx of colonoscopy Social History household members: significant other Smoking Status: Former smoker alcohol intake: never substance use type: does not use ROS <RUTH ANN Fritz - Last Filed: 08/06/23 21:57> ROS ED Constitutional Constitutional ED: Reports chills; Denies fever(s) Cardiovascular Cardiovascular: Denies chest pain or palpitations Respiratory/Chest Respiratory/Chest: Reports cough; Denies dyspnea Gastrointestinal Gastrointestinal: Denies abdominal pain, diarrhea, nausea or vomiting Musculoskeletal Musculoskeletal: Denies arthralgias or myalgias Integumentary Denies rash Neurologic Neurologic: Reports weakness EXAM <RUTH ANN Fritz - Last Filed: 08/06/23 21:57> Physical Exam Const Vital Signs: 08/06/23 20:27 08/06/23 20:27 08/06/23 20:31 Temperature 97.5 F L 97.9 F Temperature Source Temporal Temporal Pulse Rate 70 73 Respiratory Rate 32 H 30 H Respiratory Effort Short of Breath Respiratory Depth Normal Respiratory Pattern Tachypnea Blood Pressure 167/76 H 167/76 H Blood Pressure Mean 106 106 Pulse Ox 93 93 Oxygen Delivery Method Room Air Room Air Room Air 08/06/23 21:31 Temperature 98.2 F Temperature Source Temporal Pulse Rate 69 Respiratory Rate 26 H Respiratory Effort Respiratory Depth Respiratory Pattern Blood Pressure 180/121 H Blood Pressure Mean 140 Pulse Ox 98 Oxygen Delivery Method Room Air Positive well nourished, well developed and no apparent distress General Appearance ED: well developed HEENT Reports normocephalic and head/scalp atraumatic Mouth ED: Yes moist mucous membranes normal Eyes PERRL and EOMs intact bilaterally Neck full ROM and supple Chest Wall inspection of chest normal Resp normal respiratory effort Resp Narrative: Faint expiratory wheezes at the lung bases bilaterally Cardio regular rate and regular rhythm GI soft to palpation, non-tender, non-distended and no masses Back/Spine normal ROM and normal to inspection Extremity normal to inspection and full ROM Neuro oriented x3, CN's II-XII intact bilaterally, moves all extremities, no focal motor deficits and no sensory deficits noted Sensorium / Orientation: awake and alert Psych mental status grossly normal and thought process normal Skin no rashes or lesions noted and no wounds <Dr. Solomon Griffiths MD - Last Filed: 08/06/23 22:03> Physical Exam Const Vital Signs: 08/06/23 20:27 08/06/23 20:27 08/06/23 20:31 Temperature 97.5 F L 97.9 F Temperature Source Temporal Temporal Pulse Rate 70 73 Respiratory Rate 32 H 30 H Respiratory Effort Short of Breath Respiratory Depth Normal Respiratory Pattern Tachypnea Blood Pressure 167/76 H 167/76 H Blood Pressure Mean 106 106 Pulse Ox 93 93 Oxygen Delivery Method Room Air Room Air Room Air 08/06/23 21:31 Temperature 98.2 F Temperature Source Temporal Pulse Rate 69 Respiratory Rate 26 H Respiratory Effort Respiratory Depth Respiratory Pattern Blood Pressure 180/121 H Blood Pressure Mean 140 Pulse Ox 98 Oxygen Delivery Method Room Air MDM <RUTH ANN Fritz - Last Filed: 08/06/23 21:57> MDM MDM Narrative Medical decision making narrative: Patient presenting with cold-like symptoms that started 3 days ago. He is well-appearing and in no acute distress. He denies any chest pain or shortness of breath. EMS noticed he was hyperglycemic at 500, he will be given IV fluids. He does have a history of type 1 diabetes mellitus and does take insulin at home. Labs to be obtained to rule out DKA, COVID, influenza, and RSV swabs will be obtained. Chest x-ray will be obtained to rule out pneumonia and is negative for acute findings. He will be given breathing treatments. COVID and influenza negative. Patient is not in DKA, hyperglycemia is improving. Patient feels that he is too weak to go home, he was unable to get out of his bed which is why EMS was called. I do think he would benefit from admission to the hospital. Will speak with the hospitalist. I have personally performed a face to face assessment of the patient and have reviewed the MAHAD Note. I performed a substantive portion of the visit including all aspects of the following. My hurtado findings include: History is 77-year-old male URI symptoms last 3 to 4 days. has been sick for about a week with similar symptoms. He denies any vomiting or diarrhea. No fever. Nonproductive cough. He has been having some wheezing. She states he is generally weak he could not even get around the house today he was so weak. Had trouble walking due to generalized weakness. No fall. No trauma. No chest pain. He is on both Eliquis and Plavix. Exam is [77-year-old male vital signs stable afebrile. Pulse ox 93% on room air no signs hypoxia. HEENT exam mild dry mucous membranes. Neck nontender no lymphadenopathy. Lungs currently are clear to auscultation bilaterally. Initially physician's respiratory care assistant said he was wheezing and has had aerosols as wheezing is resolved. Heart regular rhythm rate about 70 no murmur. Abdomen soft nontender. Moving all 4 extremities. Nontender no edema. Neurologically is awake and alert. No focal motor deficits.] Medical Decision Making [77-year-old male URI symptoms. Differential would include pneumonia versus COVID versus flu versus other viral syndromes. Chest x-ray and labs and respiratory panel be obtained. Will be treated with DuoNeb and albuterol aerosols for his bronchospasm. He will need to be admitted for his generalized weakness.] Other additions or changes: [None] Lab Data Attestation: I reviewed the patient's lab results. Lab results narrative: Platelet count 125, BUN 27, creatinine 2.28, glucose 344 Labs: Laboratory Results - last 24 hr 08/06/23 08/06/23 20:30 20:50 WBC 5.5 RBC 4.52 L Hgb 13.4 Hct 40.5 MCV 89.6 MCH 29.6 MCHC 33.1 RDW Std Deviation 45.4 H RDW Coeff of Peggy 14.1 Plt Count 125 L MPV 10.8 Immature Gran % (Auto) 0.500 Neut % (Auto) 67.9 Lymph % (Auto) 14.8 L Bee % (Auto) 13.7 H Eos % (Auto) 2.6 Baso % (Auto) 0.5 Absolute Neuts (auto) 3.7 Absolute Lymphs (auto) 0.81 L Nucleated RBC % 0 Sodium 137 Potassium 4.3 Chloride 104 Carbon Dioxide 27.0 Anion Gap 6 BUN 27 H Creatinine 2.28 H Estim Creat Clear Calc 35.02 Est GFR (MDRD) Af Amer 36 L Est GFR (MDRD) Non-Af 30 L BUN/Creatinine Ratio 11.8 Glucose 344 H Calcium 8.7 Acetone Level NEGATIVE Radiography X-Ray: Read by ED Physician Diagnostic Testing: Clinical Impression(s) from Imaging Studies Chest X-Ray 08/06/23 21:05 IMPRESSION: Mild nonspecific bibasilar interstitial thickening of uncertain chronicity more pronounced on the left. Cannot exclude inflammatory changes. Clinical correlation is recommended as well as comparison with prior studies when available assessed for interval changes Electronically Signed: Guevara Crowder MD at 21:31 EDT , <Dr. Solomon Griffiths MD - Last Filed: 08/06/23 22:03> [facility] Narrative Medical decision making narrative: Patient presenting with cold-like symptoms that started 3 days ago. He is well-appearing and in no acute distress. He denies any chest pain or shortness of breath. EMS noticed he was hyperglycemic at 500, he will be given IV fluids. He does have a history of type 1 diabetes mellitus and does take insulin at home. Labs to be obtained to rule out DKA, COVID, influenza, and RSV swabs will be obtained. Chest x-ray will be obtained to rule out pneumonia. He will be given breathing treatments. I have personally performed a face to face assessment of the patient and have reviewed the MAHAD Note. I performed a substantive portion of the visit including all aspects of the following. My hurtado findings include: History is 77-year-old male URI symptoms last 3 to 4 days. has been sick for about a week with similar symptoms. He denies any vomiting or diarrhea. No fever. Nonproductive cough. He has been having some wheezing. She states he is generally weak he could not even get around the house today he was so weak. Had trouble walking due to generalized weakness. No fall. No trauma. No chest pain. He is on both Eliquis and Plavix. Exam is [77-year-old male vital signs stable afebrile. Pulse ox 93% on room air no signs hypoxia. HEENT exam mild dry mucous membranes. Neck nontender no lymphadenopathy. Lungs currently are clear to auscultation bilaterally. Initially physician's respiratory care assistant said he was wheezing and has had aerosols as wheezing is resolved. Heart regular rhythm rate about 70 no murmur. Abdomen soft nontender. Moving all 4 extremities. Nontender no edema. Neurologically is awake and alert. No focal motor deficits.] Medical Decision Making [77-year-old male URI symptoms. Differential would include pneumonia versus COVID versus flu versus other viral syndromes. Chest x-ray and labs and respiratory panel be obtained. Will be treated with DuoNeb and albuterol aerosols for his bronchospasm. He will need to be admitted for his generalized weakness.] Other additions or changes: [None] History & Record Review Discussion w/independent historian: Patient Additional record(s) reviewed:: Prior inpatient record, Prior outpatient record, Prior ED visit, Prior labs and No prior records Lab Data Attestation: I reviewed the patient's lab results. Lab results narrative: CBC white count of 5. H&H 13 and 40. Platelets 125,000. Electrolytes show gap of 6. BUN 27 creatinine 2.28 which is consistent with his baseline renal insufficiency and chronic kidney disease. Glucose 344 he is diabetic but is not in DKA. His acetone is negative and his gap is normal. Chest x-ray shows chronic changes. No obvious pneumonia. There is some bibasilar atelectasis. COVID, flu and RSV are negative. Labs: Laboratory Results - last 24 hr 08/06/23 08/06/23 20:30 20:50 WBC 5.5 RBC 4.52 L Hgb 13.4 Hct 40.5 MCV 89.6 MCH 29.6 MCHC 33.1 RDW Std Deviation 45.4 H RDW Coeff of Peggy 14.1 Plt Count 125 L MPV 10.8 Immature Gran % (Auto) 0.500 Neut % (Auto) 67.9 Lymph % (Auto) 14.8 L Bee % (Auto) 13.7 H Eos % (Auto) 2.6 Baso % (Auto) 0.5 Absolute Neuts (auto) 3.7 Absolute Lymphs (auto) 0.81 L Nucleated RBC % 0 Sodium 137 Potassium 4.3 Chloride 104 Carbon Dioxide 27.0 Anion Gap 6 BUN 27 H Creatinine 2.28 H Estim Creat Clear Calc 35.02 Est GFR (MDRD) Af Amer 36 L Est GFR (MDRD) Non-Af 30 L BUN/Creatinine Ratio 11.8 Glucose 344 H Calcium 8.7 Acetone Level NEGATIVE Radiography Chest X-Ray - ED: 1 View, Read by ED Physician, Read by Radiologist, Normal, Heart, Lungs, Mediastinum, Bony Structures, No Acute Disease and Chronic Changes Diagnostic Testing: Clinical Impression(s) from Imaging Studies Chest X-Ray 08/06/23 21:05 IMPRESSION: Mild nonspecific bibasilar interstitial thickening of uncertain chronicity more pronounced on the left. Cannot exclude inflammatory changes. Clinical correlation is recommended as well as comparison with prior studies when available assessed for interval changes Electronically Signed: Guevara Crowder MD at 21:31 EDT , Chest x-ray, 2 views, AP and lateral, interpreted both by myself and the radiologist. There is chronic changes. Bibasilar atelectasis. No obvious pneumonia. No effusion. Left-sided pacemaker. Discharge Plan Dx/Rx/DC Orders Clinical Impression: Viral syndrome, Hyperglycemia due to diabetes mellitus, Generalized weakness, Unable to ambulate, Chronic kidney disease, Chronic anticoagulation Disposition Disposition: Acute Care Hospital [facility]
[2023-08-06] MEDS: 0.9% Normal Saline (1000mL) 1,000 ML 999 ML IV (20:54)
[2023-08-06 20:57] LABS: Absolute Lymphocyte Count 0.81 X10^3/uL (0.83-4.51); Absolute Neutrophil Count 3.7 X10^3/uL (2.0-7.7); Basophil# 0.03 X10^3/uL; Basophil% 0.5 % (0-1); Eosinophil# 0.14 X10^3/uL; Eosinophils% 2.6 % (0-5); Hematocrit 40.5 % (40-54); Hemoglobin 13.4 g/dL (13.0-16.5); Lymphocyte # 0.81 X10^3/ul (0.83-4.51); Lymphocyte % 14.8 % (19-41); Mean Corp Hgb Conc 33.1 g/dL (32-36); Mean Corpuscular Hgb 29.6 pg (27.0-32.0); Mean Corpuscular Volume 89.6 fL (80-94); Mean Platelet Vol. 10.8 fl (6.2-12.0); Monocyte# 0.75 X10^3/uL; Monocyte% 13.7 % (0-10); NRBC Flagged by Analyzer 0 % (0-5); Neutrophil # 3.73 X10^3/uL (2.7-7.7); Neutrophil % 67.9 % (47-70); Platelet Count 125 K/mm3 (150-450); RBC Distribution Width CV 14.1 % (11.6-14.6); RBC Distribution Width SD 45.4 fl (35.1-43.9); Red Blood Count 4.52 M/mm3 (4.6-6.2); White Blood Count 5.5 K/mm3 (4.4-11.0)
--- NOTE | 2023-08-06 21:05 | RAD_ITS ---
STUDY: X-RAY CHEST REASON FOR EXAM: Male, 77 years old. cough TECHNIQUE: PA and lateral COMPARISON: None. FINDINGS: Mild nonspecific interstitial thickening in the lower lobes of uncertain chronicity more pronounced on the left. Possibility of inflammatory disease not excluded. There is no demonstrated pleural abnormality. Normal size heart. Normal mediastinum and duke. Normal visualized pulmonary arteries. Normal visualized aortic arch and descending thoracic aorta. Pacemaker is noted on the left with electrodes in satisfactory position Normal visualized thoracic spine. Normal visualized ribs, clavicles, and shoulders. There is no demonstrated abnormality of the visualized soft tissue structures of the upper abdomen. RAD/Chest PA and Lateral IMPRESSION: Mild nonspecific bibasilar interstitial thickening of uncertain chronicity more pronounced on the left. Cannot exclude inflammatory changes. Clinical correlation is recommended as well as comparison with prior studies when available assessed for interval changes Electronically Signed: Guevara Crowder MD at 21:31 EDT Reading Location ID and State: [id number] / RUTH ANN Tel , Service support ,
[2023-08-06 21:13] LABS: Anion Gap 6 (5-15); BUN 27 mg/dL (7-18); BUN/Creat Ratio 11.8 RATIO (10-20); Calcium,Total 8.7 mg/dL (8.5-10.1); Chloride 104 mmol/L (98-107); Creatinine, Serum 2.28 mg/dL (0.70-1.30); EST Glomerular Filtration Rate 30 mL/min (>60); Est Glom Filt Rate - Afr Amer 36 mL/min (>60); Estimated Creatinine Clearance 35.02 ml/min; Glucose 344 mg/dL (74-106); Potassium 4.3 mmol/L (3.5-5.1); Sodium Level 137 mmol/L (136-145)
[2023-08-06] MEDS: Ipratropium/Albuterol Sulfate 3 ML AMPUL.NEB INHALATION (21:28)
[2023-08-06] MEDS: Albuterol 2.5 MG/3 ML VIAL.NEB. INHALATION (21:28)
--- NOTE | 2023-08-06 22:04 | CPS ---
x1 Albuterol given to pt. in ER as well
--- NOTE | 2023-08-06 22:27 | HP.PCM.HOS_ITS ---
HPI - General General Date of Admission: 08/06/23 Date of Service: 08/06/23 Chief Complaint: Cough, congestion, dyspnea, worsening. HPI Narrative The patient is a 77 y/o M w/ PMHx: Suspected PAF, Obesity, Presumed HFpEF, CAD/Ischemic cardiomyopathy s/p AICD/pacemaker, HTN, HLD, Diabetes mellitus type II, Hx VF Cardiac arrest, Former tobacco use, CKD stage III unclear subtype with solitary kidney, Hypothyroidism who presents to the [facility] ED on 08/06/23 with history of cold-like symptoms starting over the last 3 days with mild headache, congestion, rhinorrhea, sore throat, chills, nonproductive cough, increased sneezing with mild dyspnea worse with exertion not improving with his girlfriend having similar symptoms although she seems to have improved but on day of presentation he had significant increased weakness and debility having di fficulty even getting up prompting EMS call. He has noted that he is been having elevated blood sugars with poor oral intake recently. Workup in the ED included T97.5, heart rate 70, BP 167/76, respiratory rate 32, 93% on room air, CBC with WBC 5.5, hemoglobin 13.4, platelet 125 with lymphopenia, BMP with BUN/creatinine 27/2.28, glucose 344, acetone negative, chest x-ray with nonspecific mild bibasilar interstitial thickening of uncertain chronicity more pronounced on the left possibly inflammatory changes, rapid SARS COVID/influenza/RSV negative. In the ED patient ministered 1 L normal saline as well as albuterol and DuoNeb therapy. 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) Solitary kidney Sustained ventricular tachycardia Ventricular fibrillation Home Medications fexofenadine-pseudoephedrine ER 180 mg-240 mg tablet,ext.release 24 hr 1 tab.sr PO DAILY allergies 01/20/16 [History Last Taken Unknown] levothyroxine 100 mcg capsule 100 mcg PO QDAY thyroid 08/20/17 [History Last Taken 12/22/19] cholecalciferol (vitamin D3) 125 mcg (5,000 unit) capsule 125 mcg PO DAILY vitamin 01/15/21 [History Last Taken Unknown] acetaminophen 500 mg tablet (Tylenol Extra Strength) 1,000 mg (2 x 500 mg) PO Q6H PRN pain #20 tabs 10/22/21 [Rx Last Taken Unknown] insulin glargine 100 unit/mL (3 mL) subcutaneous pen 63 unit subcut QPM diabetes 10/22/21 [History Last Taken Unknown] rosuvastatin 20 mg tablet 20 mg PO DAILY #30 tabs 02/03/22 [Rx Last Taken Unknown] insulin lispro 100 unit/mL subcutaneous pen (Humalog KwikPen (U-100) Insulin) 50 unit subcut TIDAC 07/20/22 [History Last Taken Unknown] magnesium oxide 400 mg PO QHS 12/27/22 [History Last Taken Unknown] pyridoxine (vitamin B6) 50 mg tablet 50 mg PO TID 12/27/22 [History Last Taken Unknown] dexamethasone 6 mg tablet 6 mg PO DAILY 7 days #7 tabs 12/29/22 [Rx Last Taken Unknown] carvedilol 25 mg tablet 25 mg PO BID #180 tabs 01/13/23 [Rx Last Taken Unknown] apixaban 5 mg tablet (Eliquis) 5 mg PO BID #180 tabs 04/09/23 [Rx Last Taken Unknown] clopidogrel 75 mg tablet 75 mg PO DAILY 08/06/23 [History Last Taken Unknown] Allergy/AdvReac Type Severity Reaction Status Date / Time amiodarone AdvReac Severe significant Verified 12/27/22 16:52 effect on lung function per PFT 09/19/17 Family History Father Colon cancer Mother No problems noted. Surgical History History of electrophysiologic study (10/21/12) History of implantable cardiac defibrillator (ICD) (04/12/12) History of left heart catheterization (01/21/16) Hx of colonoscopy Social History household members: significant other Smoking Status: Former smoker alcohol intake: never substance use type: does not use ROS ROS Narrative Admission Review of Systems: CONSTITUTIONAL: No weight loss, fever, chills, +weakness or fatigue. HEENT: + Congestion, rhinorrhea, sore throat, sneezing, headache. Eyes: No visual loss, blurred vision, double vision or yellow sclerae. Ears, Nose, Throat: No hearing loss. SKIN: No rash or itching, lesions, wounds except + occasional staged ecchymoses. CARDIOVASCULAR: No chest pain, chest pressure or chest discomfort, palpitations, edema, orthopnea, syncopal events. RESPIRATORY: + shortness of breath, cough without marked sputum, worse with exertion. No wheezing, hemoptysis. GASTROINTESTINAL: + anorexia. No nausea, vomiting, diarrhea, abdominal pain, melena, BRBPR. GENITOURINARY: No dysuria, frequency, urgency or retention. NEUROLOGICAL: + Headache. No dizziness, syncope, paralysis, ataxia, numbness or tingling in the extremities, focal weakness, change in bowel or bladder control, seizure. MUSCULOSKELETAL: + muscle, back pain, joint pain or stiffness. HEMATOLOGIC: + Easy bleeding or bruising. LYMPHATICS: No enlarged nodes. No history of splenectomy. PSYCHIATRIC: No history of depression or anxiety. ENDOCRINOLOGIC: + reports of sweating, cold or heat intolerance. No polyuria or polydipsia. ALLERGIES: + history of rhinitis. Vital Signs Vital Signs Vital Signs: 08/06/23 20:27 08/06/23 20:27 08/06/23 20:31 Temperature 97.5 F L 97.9 F Temperature Source Temporal Temporal Pulse Rate 70 73 Respiratory Rate 32 H 30 H Respiratory Effort Short of Breath Respiratory Depth Normal Respiratory Pattern Tachypnea Blood Pressure 167/76 H 167/76 H Blood Pressure Mean 106 106 Pulse Ox 93 93 Oxygen Delivery Method Room Air Room Air Room Air 08/06/23 21:31 08/06/23 21:28 08/06/23 22:00 Temperature 98.2 F 97.8 F Temperature Source Temporal Temporal Pulse Rate 69 71 69 Respiratory Rate 26 H 22 H 26 H Respiratory Effort Respiratory Depth Respiratory Pattern Tachypnea Blood Pressure 180/121 H 170/101 H Blood Pressure Mean 140 124 Pulse Ox 98 94 Oxygen Delivery Method Room Air Room Air Weight Weight: 246 lb 4.101 oz Body Mass Index (BMI) 33.4 Physical Exam Narrative Physical Examination: General: Awake, alert, oriented x 3 and cooperative, seated upright in the ED bed, fatigued, congested, mildly hoarse voice from coughing, coughing during evaluation but appears dry/non-moist in nature. Skin: Normal color, normal turgor, no icterus, no cyanosis except occasional staged ecchymoses. HEENT: AT/NC, EOMI, PERRLA, dry MM, no carotid bruits, difficult to assess JVD given thickened neck. Lungs: Diffusely diminished, greater bases, proper effort, no evidence of any distress, occasional end expiratory wheeze. No rales, ronchi. Heart: Currently regular rate and rhythm; no gallop, rub audible. Abdomen: Soft, obese, NTTP, mildly hyperactive BS, difficult to discern distention and HSM given habitus. Extremities: No cyanosis, no clubbing, mild ankle not markedly pitting edema. Neurological: Patient awake, alert, oriented as noted, cognitive function intact; pupils equally reactive to light and accommodation, cranial nerves II- XII grossly normal, moving all 4 extremities, no focal deficits, strength moderately to severely global decrease secondary to acute presentation. Psychiatric: Affect appears fatigued, no acute evidence of depressive or anxiety feelings. Results Lab / Micro Data 08/06/23 20:30 08/06/23 20:30 Labs: Laboratory Results - last 24 hr 08/06/23 20:30: WBC 5.5, RBC 4.52 L, Hgb 13.4, Hct 40.5, MCV 89.6, MCH 29.6, MCHC 33.1, RDW Std Deviation 45.4 H, RDW Coeff of Peggy 14.1, Plt Count 125 L, MPV 10.8, Immature Gran % (Auto) 0.500, Neut % (Auto) 67.9, Lymph % (Auto) 14.8 L, [place] % (Auto) 13.7 H, Eos % (Auto) 2.6, Baso % (Auto) 0.5, Absolute Neuts (auto) 3.7, Absolute Lymphs (auto) 0.81 L, Nucleated RBC % 0, Sodium 137, Potassium 4.3, Chloride 104, Carbon Dioxide 27.0, Anion Gap 6, BUN 27 H, Creatinine 2.28 H , Estim Creat Clear Calc 35.02, Est GFR (MDRD) Af Amer 36 L, Est GFR (MDRD) Non- Af 30 L, BUN/Creatinine Ratio 11.8, Glucose 344 H, Calcium 8.7 08/06/23 20:50: Acetone Level NEGATIVE Micro: Microbiology 08/06/23 20:50 Mucosa - Nose SARS-CoV-2, Influenza & RSV (PCR) - Final Imaging Radiology Impression Chest X-Ray 08/06/23 21:05 IMPRESSION: Mild nonspecific bibasilar interstitial thickening of uncertain chronicity more pronounced on the left. Cannot exclude inflammatory changes. Clinical correlation is recommended as well as comparison with prior studies when available assessed for interval changes Electronically Signed: Guevara Crowder MD at 21:31 EDT , Assessment & Plan Assessment/Plan (1) Viral syndrome: (2) Adult failure to thrive: PLAN: Plan The patient is a 77 y/o M w/ PMHx: Suspected PAF, Obesity, Presumed HFpEF, CAD/Ischemic cardiomyopathy s/p AICD/pacemaker, HTN, HLD, Diabetes mellitus type II, Hx VF Cardiac arrest, Former tobacco use, CKD stage III unclear subtype with solitary kidney, Hypothyroidism who presents to the [facility] ED on 08/06/23 with history of cold-like symptoms starting over the last 3 days with mild headache, congestion, rhinorrhea, sore throat, chills, nonproductive cough, increased sneezing with mild dyspnea worse with exertion not improving with his girlfriend having similar symptoms although she seems to have improved but on day of presentation he had significant increased weakness and debility having difficulty even getting up prompting EMS call. He has noted that he is been having elevated blood sugars with poor oral intake recently. #1. Adult FTT, Debility secondary to Suspected Acute Viral Syndrome: Given significant debility will admit to medical surgical floor, maintain on fall precautions, maintain on ATC budesonide therapy, PRN albuterol, HOB, IS parameters, if able obtain sputum Cx, obtain full respiratory viral panel, procalcitonin, monitor for development of super imposed bacterial pneumonia, IVFs overnight with repeat AM CXR, encourage OOB, PT/OT/CM consultation for discharge planning. #2. Acute thrombocytopenia: Suspect reactive given acute viral syndrome, admission platelet 125, baseline previously primarily normal range but has occasionally been thrombocytopenic in the past but unclear circumstances, continue to closely trend CBC. #3. Suspected PAF: Patient is uncertain why he has been started on Eliquis, will continue Coreg and although uncertain suspect likely underlying A-fib as he denies any clot including DVT or PE history. #4. Diabetes mellitus type II with hyperglycemia: Will continue home insulin regimen, ADA diet, accu checks w/ ISS. #5. Presumed HFpEF/Ischemic cardiomyopathy: 02/02/2022 echocardiogram with normal LV size, EF 55%, mild segmental systolic dysfunction, mildly enlarged LA, try sinus/trileaflet aortic valve, bubble contrast AT negative for shunt but patient is status post AICD placement thus EF could have certainly been reduced previously, continue patient Plavix, Eliquis, Coreg and statin therapy. #6. CAD with history of V-fib cardiac arrest: We will continue patient apixaban and Plavix, continue Coreg and statin therapy, not on GRETCHEN or/ARB possibly secondary to renal disease. #7. Chronic Kidney Disease Stage III, unclear subtype with solitary kidney: Admission BUN/Cr 27/2.28, GFR upon current presentation 30, baseline renal function primarily 1.7-2.4 with GFR primarily 30-40 range, repeat BMP in AM. #8. Hypertension: Continue home regimen including Coreg, PRN hydralazine. #9. Diabetes mellitus type II: Hold oral home regimen, continue home insulin regimen, ADA diet, accu checks w/ ISS. #10. Hypothyroidism: We will can patient home levothyroxine regimen. #11. Hyperlipidemia: We will continue patient home statin therapy. #12. Allergic rhinitis: Patient on chronic fexofenadine hydrochloride however it appears he also takes pseudoephedrine combination, strongly encourage this to be avoided chronically if able. #13. Obesity: Weight loss and lifestyle changes encouraged. #14. Former tobacco use: Encourage continued tobacco cessation. #15. DVT prophylaxis: We will continue patient on Eliquis regimen. #16. CODE status: Patient HCPOA and living will are not in place but he notes his significant other would be his decision-maker if necessary. Discussed CODE status at length including difference between FULL code, DNR-CCA and DNR-CC status. Following discussions about the differences in these status, requested Full Code status. Advanced Care Planning Face to Face Time: 16 minutes. Charges/Coding Visit Charges Inpatient E&M: 53058 Init Hosp L2 Procedures Hospitalists Procedures: 04419 Advncd Care Plan 30 Min
[2023-08-06] MEDS: 0.9% Normal Saline (1000mL) 1,000 ML 100 ML IV (23:50)
[2023-08-07] VITALS (14 sets, daily range): BP systolic 147–188; BP diastolic 54–88; PULSE 68–86; RESP 16–26; TEMP 36.5–37.7; O2SAT 92–98; BMI 33.0
[2023-08-07 00:34] LABS: Bedside Glucose 160 mg/dL (74-106)
[2023-08-07] MEDS: MELATONIN 3 MG TABLET PO (01:23)
[2023-08-07] MEDS: hydrALAZINE 20 MG/ML Vial 10 MG IV ×2 (01:23→06:13)
[2023-08-07] MEDS: guaiFENesin 10 ML UDC (200MG/10ML) 20 ML PO (01:24)
--- NOTE | 2023-08-07 02:51 | EKG12_ITS ---
Test Reason : CP Blood Pressure : / mmHG Vent. Rate : 077 BPM Atrial Rate : 077 BPM P-R Int : 150 ms QRS Dur : 118 ms QT Int : 426 ms P-R-T Axes : 004 -66 060 degrees QTc Int : 482 ms Sinus rhythm with occasional Premature ventricular complexes Right bundle branch block Left anterior fascicular block Bifascicular block Abnormal ECG When compared with ECG of 27-DEC-2022 17:06, Premature ventricular complexes are now Present Right bundle branch block is now Present Confirmed by RICK ARCE, VIKKI ([id number]), makeup editor SO CARDENAS ([id number]) on 08/10/2023 7:44:07 AM Referred By: Confirmed By:VIKKI CABRERA MD
[2023-08-07] MEDS: Albuterol 2.5 MG/3 ML VIAL.NEB. INHALATION (04:19)
--- NOTE | 2023-08-07 05:55 | RAD_ITS ---
STUDY: X-RAY CHEST REASON FOR EXAM: Male, 77 years old. Dyspnea, cough TECHNIQUE: Single AP portable view of the chest. COMPARISON: Comparison is made with prior examination August 06, 2023. FINDINGS: The lungs are clear and expanded. There is no demonstrated pleural abnormality. Normal size heart. A left-sided dual-chamber pacemaker is seen. Normal mediastinum and duke. Normal visualized pulmonary arteries. There is atherosclerotic calcification of the aortic arch with tortuosity. Normal visualized thoracic spine. Normal visualized ribs, clavicles, and shoulders. There is no demonstrated abnormality of the visualized soft tissue structures of the upper abdomen. RAD/Chest 1 View (Portable) IMPRESSION: No acute abnormality is seen. Electronically Signed: Juan Ramon Jack MD at 13:21 EDT ,
[2023-08-07] MEDS: Pyridoxine HCl 50 MG Tablet PO ×3 (06:13→21:40)
[2023-08-07] MEDS: Levothyroxine 100 MCG Tablet PO (06:13)
[2023-08-07] MEDS: Insulin Lispro 100 UNIT/ML INSULN.PEN SC ×4 (06:21→21:31)
[2023-08-07 06:48] LABS: Bedside Glucose 297 mg/dL (74-106)
[2023-08-07] MEDS: Budesonide Respules 0.5 MG/2 ML AMPUL.NEB. INHALATION ×2 (07:03→19:37)
[2023-08-07 07:11] LABS: Absolute Lymphocyte Count 0.79 X10^3/uL (0.83-4.51); Absolute Neutrophil Count 4.2 X10^3/uL (2.0-7.7); Basophil# 0.03 X10^3/uL; Basophil% 0.5 % (0-1); Eosinophil# 0.13 X10^3/uL; Eosinophils% 2.2 % (0-5); Hematocrit 40.2 % (40-54); Hemoglobin 12.9 g/dL (13.0-16.5); Lymphocyte # 0.79 X10^3/ul (0.83-4.51); Lymphocyte % 13.3 % (19-41); Mean Corp Hgb Conc 32.1 g/dL (32-36); Mean Corpuscular Hgb 29.1 pg (27.0-32.0); Mean Corpuscular Volume 90.5 fL (80-94); Mean Platelet Vol. 11.3 fl (6.2-12.0); Monocyte# 0.76 X10^3/uL; Monocyte% 12.8 % (0-10); NRBC Flagged by Analyzer 0 % (0-5); Neutrophil # 4.23 X10^3/uL (2.7-7.7); Neutrophil % 70.9 % (47-70); Platelet Count 110 K/mm3 (150-450); RBC Distribution Width CV 14.2 % (11.6-14.6); RBC Distribution Width SD 47.4 fl (35.1-43.9); Red Blood Count 4.44 M/mm3 (4.6-6.2)
[2023-08-07 08:22] LABS: ALB/GLOB Ratio 0.7 RATIO (0.9-2.4); AST(SGOT) 20 U/L (15-37); Alanine Aminotransfer ALT/SGPT 17 U/L (16-61); Albumin, Serum 2.5 g/dL (3.2-5.0); Alkaline Phosphatase 50 U/L (45-117); Anion Gap 9 (5-15); BUN 24 mg/dL (7-18); BUN/Creat Ratio 11.8 RATIO (10-20); Calcium,Total 8.5 mg/dL (8.5-10.1); Chloride 104 mmol/L (98-107); Creatinine, Serum 2.04 mg/dL (0.70-1.30); EST Glomerular Filtration Rate 34 mL/min (>60); Est Glom Filt Rate - Afr Amer 41 mL/min (>60); Estimated Creatinine Clearance 38.95 ml/min; Globulin 3.4 g/dL (2.2-4.2); Glucose 296 mg/dL (74-106); Potassium 4.4 mmol/L (3.5-5.1); Protein, Total 5.9 g/dL (6.4-8.2); Sodium Level 135 mmol/L (136-145)
[2023-08-07] MEDS: Clopidogrel Bisulfate 75 MG Tablet PO (10:01)
[2023-08-07] MEDS: Carvedilol 25 MG Tablet PO ×2 (10:01→16:33)
[2023-08-07] MEDS: APIXABAN 5 MG TABLET PO ×2 (10:01→21:29)
[2023-08-07] MEDS: Acetaminophen 325 MG Tablet 650 MG PO (11:21)
[2023-08-07 11:37] LABS: Bedside Glucose 351 mg/dL (74-106)
--- NOTE | 2023-08-07 13:55 | PN_ITS ---
Subjective Subjective Patient seen and examined. He still complained of feeling short of breath and complained of generalized malaise. He denied any fever or chills. He admitted to coughing and occasional shortness of breath as well as wheezing.. He denied any nausea or vomiting. Review of systems otherwise negative. Objective Data Objective Data Vital Signs: Vital Signs Temp Pulse Resp BP Pulse Ox O2 Del Method 97.7 F L 85 18 179/88 H 94 Room Air 08/07/23 10:16 08/07/23 10:16 08/07/23 10:16 08/07/23 10:16 08/07/23 10:16 08/07/23 10:16 Oxygen Delivery Method Room Air Weight: 243 lb 13.3 oz Body Mass Index (BMI) 33.0 Intake & Output: Intake and Output for Last 24 Hours 08/05/23 08/06/23 08/07/23 23:59 23:59 23:59 Intake Total 1400 / 1400 1000 / 1000 Output Total 250 / 250 Balance 1400 / 1150 750 / 750 Lab / Micro Data 08/07/23 05:30 08/07/23 05:30 Labs: Laboratory Results - last 24 hr 08/06/23 20:30: WBC 5.5, RBC 4.52 L, Hgb 13.4, Hct 40.5, MCV 89.6, MCH 29.6, MCHC 33.1, RDW Std Deviation 45.4 H, RDW Coeff of Peggy 14.1, Plt Count 125 L, MPV 10.8, Immature Gran % (Auto) 0.500, Neut % (Auto) 67.9, Lymph % (Auto) 14.8 L, [place] % (Auto) 13.7 H, Eos % (Auto) 2.6, Baso % (Auto) 0.5, Absolute Neuts (auto) 3.7, Absolute Lymphs (auto) 0.81 L, Nucleated RBC % 0, Sodium 137, Potassium 4.3, Chloride 104, Carbon Dioxide 27.0, Anion Gap 6, BUN 27 H, Creatinine 2.28 H , Estim Creat Clear Calc 35.02, Est GFR (MDRD) Af Amer 36 L, Est GFR (MDRD) Non- Af 30 L, BUN/Creatinine Ratio 11.8, Glucose 344 H, Calcium 8.7 08/06/23 20:50: Acetone Level NEGATIVE 08/06/23 23:58: POC Glucose 160 H 08/07/23 05:30: WBC 6.0, RBC 4.44 L, Hgb 12.9 L, Hct 40.2, MCV 90.5, MCH 29.1, MCHC 32.1, RDW Std Deviation 47.4 H, RDW Coeff of Peggy 14.2, Plt Count 110 L, MPV 11.3, Immature Gran % (Auto) 0.300, Neut % (Auto) 70.9 H, Lymph % (Auto) 13.3 L, [place] % (Auto) 12.8 H, Eos % (Auto) 2.2, Baso % (Auto) 0.5, Absolute Neuts (auto) 4.2, Absolute Lymphs (auto) 0.79 L, Nucleated RBC % 0, Sodium 135 L, Potassium 4.4, Chloride 104, Carbon Dioxide 22.0, Anion Gap 9, BUN 24 H, Creatinine 2.04 H , Estim Creat Clear Calc 38.95, Est GFR (MDRD) Af Amer 41 L, Est GFR (MDRD) Non- Af 34 L, BUN/Creatinine Ratio 11.8, Glucose 296 H, Calcium 8.5, Total Bilirubin 0.70, AST 20, ALT 17, Alkaline Phosphatase 50, Total Protein 5.9 L, Albumin 2.5 L, Globulin 3.4, Albumin/Globulin Ratio 0.7 L 08/07/23 06:11: POC Glucose 297 H 08/07/23 11:15: POC Glucose 351 H Micro: Microbiology 08/06/23 23:40 Mucosa - Nasopharyngeal Respiratory Panel (PCR) - Final Rhinovirus 08/06/23 23:58 Urine, Random Streptococcus pneumoniae Antigen (M - Final 08/06/23 23:58 Urine, Random Legionella Antigen - Final 08/06/23 20:50 Mucosa - Nose SARS-CoV-2, Influenza & RSV (PCR) - Final Radiography Diagnostic Testing: Radiology Impression Chest X-Ray 08/06/23 21:05 IMPRESSION: Mild nonspecific bibasilar interstitial thickening of uncertain chronicity more pronounced on the left. Cannot exclude inflammatory changes. Clinical correlation is recommended as well as comparison with prior studies when available assessed for interval changes Electronically Signed: Guevara Crowder MD at 21:31 EDT , Chest X-Ray 08/07/23 05:55 IMPRESSION: No acute abnormality is seen. Electronically Signed: Juan Ramon Jack MD at 13:21 EDT , Physical Exam Const alert, oriented x3 and no apparent distress HEENT normocephalic and head/scalp atraumatic Mouth: dry mucous membranes Eyes PERRL and EOMs intact bilaterally Neck no lymphadenopathy and supple Lymph Lymphatic: no lymphadenopathy noted and no lymphedema noted Resp Resp Narrative: Moderately diminished breath sounds bibasilarly, no wheezes or crackles. On room air. Cardio regular rate, regular rhythm, S1 normal heart sound, S2 normal heart sound and no murmurs GI normal to inspection, nondistended, normoactive bowel sounds, soft to palpation, non-tender and non-distended Extremity normal capillary refill, no clubbing, cyanosis or edema and no calf tenderness General Extremity: no tenderness to palpation of joints or extremities Skin General Skin Exam: no breakdown Neuro CN's II-XII intact bilaterally and no focal motor deficits Motor Exam: strength 5/5 throughout and general weakness Psych thought process normal and cooperative Appearance: appropriate Assessment & Plan Assessment/Plan (1) Viral syndrome: PLAN: Plan #Hypoxia due to acute viral URTI from rhinovirus infection * Patient now on room air. Still complains of wheezing and coughing. He had family members who have similar symptoms. Chest x-ray showed no evidence of superimposed pneumonia. Breathing treatments bronchodilators. Titrate oxygen to maintain saturation above 90%. * Respiratory panel positive for rhinovirus * Hydrate gently with IV fluids. * #Thrombocytopenia: Platelets at 110 today. Was 125 yesterday. May be due to acute viral infection. Will continue to monitor. #Paroxysmal A-fib: On Eliquis and Coreg. #Type 2 diabetes mellitus: On Lantus. Insulin sliding scale. Accu-Cheks ACHS. #Heart failure preserved ejection fraction: S/p ICD insertion. #History of CAD: Has history of cardiac arrest and is s/p ICD. On Plavix as well as Coreg and statin. #CKD stage III: Has a solitary kidney. Creatinine is 2.04 today, from 2.28 on admission. Baseline is around 1.7. Will monitor. #Hypertension: On Coreg. IV hydralazine as needed #Type 2 diabetes mellitus: On Lantus. Insulin sliding scale. Tactics ACHS. #Hypothyroidism: On Synthroid #Hyperlipidemia: On statin #DVT prophylaxis: on eliquis. Charges/Coding Visit Charges Inpatient E&M: 74141 Subs Hosp L2
--- NOTE | 2023-08-07 14:58 | CASEMGMT ---
KOSTAS NEELY into pt room, pt lying in bed on RA. Pt states he lives with his fiance and he is I at home. Pt does not typically use AD but has a walker available. Pt has a BGM with sufficient supply of strips and lancets. Pt does not feel he will need any services upon going home. KOSTAS NEELY to follow.
--- NOTE | 2023-08-07 15:11 | CASEMGMT ---
Met with?patient to complete FORBES form. FORBES form explained to patient who voiced understanding and signed form. Original form placed in pt?s chart and copy provided to?patient. Oralia Copeland, Discharge Planning Asst
[2023-08-07 16:51] LABS: Bedside Glucose 305 mg/dL (74-106)
[2023-08-07] MEDS: Magnesium Chloride 64 MG Delay Rel.Tablet 128 MG PO (21:29)
[2023-08-07] MEDS: Atorvastatin Calcium 40 MG Tablet PO (21:29)
[2023-08-07] MEDS: Insulin Glargine-YFGN 100 UNIT/ML Pen 63 UNIT SC (21:30)
[2023-08-07 22:04] LABS: Bedside Glucose 384 mg/dL (74-106)
[2023-08-07] MEDS: 0.9% Saline Lock 10 ML Syringe IV (23:08)
[2023-08-08] VITALS (10 sets, daily range): BP systolic 112–171; BP diastolic 70–82; PULSE 65–79; RESP 16–22; TEMP 36.6–37.5; O2SAT 77–97; BMI 33.0
[2023-08-08 06:25] LABS: Absolute Neutrophil Count 3.4 X10^3/uL (2.0-7.7); Basophil# 0.03 X10^3/uL; Basophil% 0.5 % (0-1); Eosinophil# 0.11 X10^3/uL; Eosinophils% 1.9 % (0-5); Hematocrit 38.4 % (40-54); Hemoglobin 12.2 g/dL (13.0-16.5); Lymphocyte % 22.6 % (19-41); Mean Corp Hgb Conc 31.8 g/dL (32-36); Mean Corpuscular Hgb 28.8 pg (27.0-32.0); Mean Corpuscular Volume 90.6 fL (80-94); Mean Platelet Vol. 10.5 fl (6.2-12.0); Monocyte# 0.93 X10^3/uL; Monocyte% 16.2 % (0-10); NRBC Flagged by Analyzer 0 % (0-5); Neutrophil # 3.35 X10^3/uL (2.7-7.7); Neutrophil % 58.5 % (47-70); Platelet Count 112 K/mm3 (150-450); RBC Distribution Width CV 14.2 % (11.6-14.6); Red Blood Count 4.24 M/mm3 (4.6-6.2); White Blood Count 5.7 K/mm3 (4.4-11.0)
[2023-08-08] MEDS: Levothyroxine 100 MCG Tablet PO (06:44)
[2023-08-08] MEDS: hydrALAZINE 20 MG/ML Vial 10 MG IV (06:44)
[2023-08-08] MEDS: Pyridoxine HCl 50 MG Tablet PO (06:44)
[2023-08-08] MEDS: Insulin Lispro 100 UNIT/ML INSULN.PEN SC ×2 (06:46→12:58)
[2023-08-08] MEDS: 0.9% Saline Lock 10 ML Syringe IV (06:51)
[2023-08-08 06:52] LABS: Anion Gap 5 (5-15); BUN 25 mg/dL (7-18); BUN/Creat Ratio 12.4 RATIO (10-20); Calcium,Total 8.8 mg/dL (8.5-10.1); Chloride 105 mmol/L (98-107); Creatinine, Serum 2.01 mg/dL (0.70-1.30); EST Glomerular Filtration Rate 34 mL/min (>60); Est Glom Filt Rate - Afr Amer 42 mL/min (>60); Estimated Creatinine Clearance 39.53 ml/min; Glucose 260 mg/dL (74-106); Potassium 3.8 mmol/L (3.5-5.1); Sodium Level 136 mmol/L (136-145)
[2023-08-08] MEDS: Budesonide Respules 0.5 MG/2 ML AMPUL.NEB. INHALATION (07:10)
[2023-08-08 07:14] LABS: Bedside Glucose 221 mg/dL (74-106)
[2023-08-08] MEDS: Carvedilol 25 MG Tablet PO (09:29)
[2023-08-08] MEDS: Clopidogrel Bisulfate 75 MG Tablet PO (09:36)
[2023-08-08] MEDS: APIXABAN 5 MG TABLET PO (09:36)
--- NOTE | 2023-08-08 12:18 | DCINST_ITS ---
Discharge Instructions Diet Discharge Diet: Low fat / Low cholesterol Activity Discharge Activity: Return to Normal Activity Weight Bearing Status: Weight bearing as tolerated Dressing / Incision Call your doctor if you observe: Fever of 101 or Higher, Shortness of breath, Dizziness and Chest pain Follow Up Care Test Results: Test results from this visit will be discussed in further detail at your follow- up appointment, if applicable. Discharge Plan Admission Admit Date/Time: 08/06/23 22:27 Primary Reason for Your Visit: URTI, rhinovirus Attending Provider: Amanda Wick Primary Care Provider: Nathen Chang Consulting Providers: Gela Salinas Instructions Patient Instructions: Understanding the Cold Virus Discharge Orders/Prescriptions Prescriptions: Continued levothyroxine 100 mcg capsule 100 mcg capsule 100 mcg PO QDAY cholecalciferol (vitamin D3) 125 mcg (5,000 unit) capsule 125 mcg PO DAILY fexofenadine-pseudoephedrine 1 TAB.SR tablet extended release 24 hr 1 tab.sr PO DAILY Hold Instructions: Advised to take it as needed for nasal congestion, cold symptoms/allergic rhinitis Patient Comments: DIRECTED insulin glargine 100 unit/mL (3 mL) Insulin Pen 63 unit SUBCUT QPM acetaminophen [Tylenol Extra Strength] 500 mg tablet 1,000 mg PO Q6H PRN (Reason: pain) Qty: 20 0RF rosuvastatin 20 mg tablet 20 mg PO DAILY Qty: 30 2RF insulin lispro [Humalog KwikPen Insulin] 100 unit/mL insulin pen 50 unit subcut TIDAC pyridoxine (vitamin B6) 50 mg tablet 50 mg PO TID Patient Comments: 1 (one) Tablet three times daily with meals magnesium oxide 400 mg magnesium tablet 400 mg PO QHS Patient Comments: TAKE 1 TABLET BY MOUTH AT BEDTIME clopidogrel 75 mg tablet 75 mg PO DAILY carvedilol 25 mg tablet 25 mg PO BID Qty: 180 3RF Eliquis 5 mg tablet 5 mg PO BID Qty: 180 3RF Discontinued dexamethasone 6 mg tablet 6 mg PO DAILY 7 Days Qty: 7 0RF Referrals / Follow Up: Nathen Chang MD [Primary Care Provider] - Within 2 Weeks Disposition Disposition (needs filled in before D/C Order can be placed): Home, Self Care
--- NOTE | 2023-08-08 12:22 | DS.PCM_ITS ---
Providers Date of Admission: 08/06/23 Date of Discharge: 08/08/23 Primary Care Physician: Dr. Nathen Chang MD Reason For Visit: VIRAL SYNDROME, ADULT FTT Diagnosis Discharge Diagnosis (1) Viral syndrome: Status: Acute Code(s): B34.9 - Viral infection, unspecified Plan #Hypoxia due to acute viral URTI from rhinovirus infection * Patient now on room air. Still complains of wheezing and coughing. He had family members who have similar symptoms. Chest x-ray showed no evidence of superimposed pneumonia. Breathing treatments bronchodilators. Titrate oxygen to maintain saturation above 90%. * Respiratory panel positive for rhinovirus * Hydrate gently with IV fluids. * #Thrombocytopenia: Platelets at 110 today. Was 125 yesterday. May be due to acute viral infection. Will continue to monitor. #Paroxysmal A-fib: On Eliquis and Coreg. #Type 2 diabetes mellitus: On Lantus. Insulin sliding scale. Accu-Cheks ACHS. #Heart failure preserved ejection fraction: S/p ICD insertion. #History of CAD: Has history of cardiac arrest and is s/p ICD. On Plavix as well as Coreg and statin. #CKD stage III: Has a solitary kidney. Creatinine is 2.04 today, from 2.28 on admission. Baseline is around 1.7. Will monitor. #Hypertension: On Coreg. IV hydralazine as needed #Type 2 diabetes mellitus: On Lantus. Insulin sliding scale. Tactics ACHS. #Hypothyroidism: On Synthroid #Hyperlipidemia: On statin #DVT prophylaxis: on eliquis. Medications at Discharge Home Medications fexofenadine-pseudoephedrine ER 180 mg-240 mg tablet,ext.release 24 hr 1 tab.sr PO DAILY allergies 01/20/16 levothyroxine 100 mcg capsule 100 mcg PO QDAY thyroid 08/20/17 cholecalciferol (vitamin D3) 125 mcg (5,000 unit) capsule 125 mcg PO DAILY vitamin 01/15/21 acetaminophen 500 mg tablet (Tylenol Extra Strength) 1,000 mg (2 x 500 mg) PO Q6H PRN pain #20 tabs 10/22/21 insulin glargine 100 unit/mL (3 mL) subcutaneous pen 63 unit subcut QPM diabetes 10/22/21 rosuvastatin 20 mg tablet 20 mg PO DAILY #30 tabs 02/03/22 insulin lispro 100 unit/mL subcutaneous pen (Humalog KwikPen (U-100) Insulin) 50 unit subcut TIDAC 07/20/22 magnesium oxide 400 mg PO QHS 12/27/22 pyridoxine (vitamin B6) 50 mg tablet 50 mg PO TID 12/27/22 carvedilol 25 mg tablet 25 mg PO BID #180 tabs 01/13/23 apixaban 5 mg tablet (Eliquis) 5 mg PO BID #180 tabs 04/09/23 clopidogrel 75 mg tablet 75 mg PO DAILY 08/06/23 Hospital Course Operations None Procedures None Summary of Care Provided Minutes Spent on Discharge: 45 Hospital Course: Patient is a 77-year-old male with a past medical history as outlined was admitted through the ED on 08/06/2023 with a complaint of cough, congestion and shortness of breath. His symptoms had started a few days prior to his coming and and he had assisted headache and rhinorrhea as well. His girlfriend and grandchildren had had similar complaints. His symptoms were not improving so he decided to come into the ED. He said he had not been eating and drinking well at home also. Chest x-ray showed nonspecific mild bibasilar interstitial thickening of uncertain chronicity. Respiratory panel was positive for rhinovirus and COVID as well as influenza and RSV screens were negative. He was admitted and managed for hypoxia due to upper respiratory tract infection from rhinovirus infection. Patient was hydrated with IV fluids and work with physical therapy. His symptoms did improve and he felt better. He was weaned off of oxygen. He remained stable and was discharged home on 08/08/2023. He had walking pulse ox which showed that he did not require any oxygen. Patient seen and examined prior to discharge. He had no complaints and had an uneventful review of systems otherwise negative. Labs and vitals reviewed. Home medication reviewed and reconciled. Physical Exam Const alert, oriented x3 and no apparent distress General Appearance: cooperative, comfortable and well kempt HEENT normocephalic, head/scalp atraumatic, hearing grossly normal bilaterally and moist oral mucous membranes Mouth: oral and palatal mucosa normal Eyes PERRL, EOMs intact bilaterally and conjunctivae normal Neck no lymphadenopathy and supple Lymph Lymphatic: no lymphadenopathy noted and no lymphedema noted Resp Resp Narrative: Moderately diminished breath sounds bibasilarly, no wheezes or crackles. On room air. Cardio regular rate, regular rhythm, S1 normal heart sound, S2 normal heart sound and no murmurs GI normal to inspection, nondistended, normoactive bowel sounds, soft to palpation, non-tender and non-distended Extremity normal to inspection, full ROM, normal capillary refill, no clubbing, cyanosis or edema and no calf tenderness General Extremity: no tenderness to palpation of joints or extremities Skin no rashes or lesions noted General Skin Exam: no breakdown Neuro oriented x3, CN's II-XII intact bilaterally, moves all extremities and no focal motor deficits Sensorium / Orientation: awake and alert Motor Exam: strength 5/5 throughout and general weakness Psych thought process normal and cooperative Appearance: appropriate Weight / BMI Weight Weight: 243 lb 13.3 oz Body Mass Index (BMI) 33.0 ABG / Lab / Microbiology Data 08/08/23 06:02 08/08/23 06:02 Laboratory: Laboratory Results - last 24 hr 08/07/23 16:29: POC Glucose 305 H 08/07/23 21:28: POC Glucose 384 H 08/08/23 06:02: WBC 5.7, RBC 4.24 L, Hgb 12.2 L, Hct 38.4 L, MCV 90.6, MCH 28.8, MCHC 31.8 L, RDW Std Deviation 47.0 H, RDW Coeff of Peggy 14.2, Plt Count 112 L, MPV 10.5, Immature Gran % (Auto) 0.300, Neut % (Auto) 58.5, Lymph % (Auto) 22.6, [place] % (Auto) 16.2 H, Eos % (Auto) 1.9, Baso % (Auto) 0.5, Absolute Neuts (auto) 3.4, Absolute Lymphs (auto) 1.30, Nucleated RBC % 0, Sodium 136, Potassium 3.8, Chloride 105, Carbon Dioxide 26.0, Anion Gap 5, BUN 25 H, Creatinine 2.01 H, Estim Creat Clear Calc 39.53, Est GFR (MDRD) Af Amer 42 L, Est GFR (MDRD) Non-Af 34 L, BUN/Creatinine Ratio 12.4, Glucose 260 H, Calcium 8.8 08/08/23 06:38: POC Glucose 221 H Microbiology: Microbiology 08/06/23 23:40 Mucosa - Nasopharyngeal Respiratory Panel (PCR) - Final Rhinovirus 08/06/23 23:58 Urine, Random Streptococcus pneumoniae Antigen (M - Final 08/06/23 23:58 Urine, Random Legionella Antigen - Final 08/06/23 20:50 Mucosa - Nose SARS-CoV-2, Influenza & RSV (PCR) - Final Radiography Diagnostic Testing: Radiology Impression Chest X-Ray 08/07/23 05:55 IMPRESSION: No acute abnormality is seen. Electronically Signed: Juan Ramon Jack MD at 13:21 EDT , D/C Instructions Discharge Diet: Low fat / Low cholesterol Discharge Activity: Return to Normal Activity Weight Bearing Status: Weight bearing as tolerated Call your doctor if you observe: Fever of 101 or Higher, Shortness of breath, Dizziness and Chest pain Meaningful Use Info Meaningful Use Meaningful Use Diagnoses (Choose all that apply): None applicable Ischemic Stroke Statin Dosing Therapy Reference: STATIN DOSE THERAPY REFERENCE: * Patients > 75 years receive moderate or high dose statin therapy. * Patients 75 years or YOUNGER should receive HIGH intensity statin dose unless contraindicated. You will be required to document reason for non-treatment if statin daily dose does not meet guidelines. HIGH DOSE STATIN THERAPY DAILY Atorvastatin > than or = to 40 mg Rosuvastatin > than or = to 20 mg Amlodipine + Atorvastatin > than or = to 2.5/40 mg Ezetimibe + Simvastatin 10/80 mg Simvastatin 80mg Discharge Plan Admission Admit Date/Time: 08/06/23 22:27 Primary Reason for Your Visit: URTI, rhinovirus Attending Provider: Amanda Wick Primary Care Provider: Nathen Chang Consulting Providers: Gela Salinas Instructions Patient Instructions: Understanding the Cold Virus Discharge Orders/Prescriptions Prescriptions: Continued levothyroxine 100 mcg capsule 100 mcg capsule 100 mcg PO QDAY cholecalciferol (vitamin D3) 125 mcg (5,000 unit) capsule 125 mcg PO DAILY fexofenadine-pseudoephedrine 1 TAB.SR tablet extended release 24 hr 1 tab.sr PO DAILY Hold Instructions: Advised to take it as needed for nasal congestion, cold symptoms/allergic rhinitis Patient Comments: DIRECTED insulin glargine 100 unit/mL (3 mL) Insulin Pen 63 unit SUBCUT QPM acetaminophen [Tylenol Extra Strength] 500 mg tablet 1,000 mg PO Q6H PRN (Reason: pain) Qty: 20 0RF rosuvastatin 20 mg tablet 20 mg PO DAILY Qty: 30 2RF insulin lispro [Humalog KwikPen Insulin] 100 unit/mL insulin pen 50 unit subcut TIDAC pyridoxine (vitamin B6) 50 mg tablet 50 mg PO TID Patient Comments: 1 (one) Tablet three times daily with meals magnesium oxide 400 mg magnesium tablet 400 mg PO QHS Patient Comments: TAKE 1 TABLET BY MOUTH AT BEDTIME clopidogrel 75 mg tablet 75 mg PO DAILY carvedilol 25 mg tablet 25 mg PO BID Qty: 180 3RF Eliquis 5 mg tablet 5 mg PO BID Qty: 180 3RF Discontinued dexamethasone 6 mg tablet 6 mg PO DAILY 7 Days Qty: 7 0RF Referrals / Follow Up: Nathen Chang MD [Primary Care Provider] - Within 2 Weeks Disposition Disposition (needs filled in before D/C Order can be placed): Home, Self Care Charges/Coding Visit Charges Inpatient E&M: 11930 Disch Hosp >30min
[2023-08-08 13:19] LABS: Bedside Glucose 314 mg/dL (74-106)
== END 2023-08-08 13:55 | disposition home or self-care (01) ==
LOC: ED 22:07 → MS3 22:54
PROVIDERS: Physician Assistant; Admitting Provider Family Medicine; Emergency Provider Emergency Medicine; PCP Family Medicine; Visit Provider Student in an Organized Health Care Education/Training Program
DX: J06.9 Acute upper respiratory infection, unspecified (principal); I50.32 Chronic diastolic (congestive) heart failure; I13.0 Hypertensive heart and chronic kidney disease with heart failure and stage 1 through stage 4 chronic kidney disease, or unspecified chronic kidney disease; I48.0 Paroxysmal atrial fibrillation; E10.65 Type 1 diabetes mellitus with hyperglycemia; E10.22 Type 1 diabetes mellitus with diabetic chronic kidney disease; Z79.4 Long term (current) use of insulin; N18.30 Chronic kidney disease, stage 3 unspecified; R09.02 Hypoxemia; R53.81 Other malaise; R62.7 Adult failure to thrive; Z87.891 Personal history of nicotine dependence; Z79.01 Long term (current) use of anticoagulants; I25.5 Ischemic cardiomyopathy; I25.10 Atherosclerotic heart disease of native coronary artery without angina pectoris; E78.5 Hyperlipidemia, unspecified; Z95.810 Presence of automatic (implantable) cardiac defibrillator; Z79.899 Other long term (current) drug therapy; Z86.74 Personal history of sudden cardiac arrest; E03.9 Hypothyroidism, unspecified; Z79.890 Hormone replacement therapy; E66.9 Obesity, unspecified; Z68.33 Body mass index [BMI] 33.0-33.9, adult; D69.6 Thrombocytopenia, unspecified; B97.89 Other viral agents as the cause of diseases classified elsewhere
CPT/HCPCS: 36415; 71045; 71046; 80048; 80053; 82009; 82962; 85025; 87449; 87631; 87633; 93005; 94640; 94668; 94762; 96361; 96374; 96376; 97162; 97165; 97530; 99221; 99283; J7030; A4216; G0378

== ENCOUNTER 2023-08-12 07:29 | Emergency (ER) | payer MEDICARE, SELFPAY ==
[2023-08-12] VITALS (9 sets, daily range): BP systolic 172–192; BP diastolic 77–90; PULSE 64–74; RESP 17–22; TEMP 36.4–36.7; O2SAT 88–96; BMI 34.2
--- NOTE | 2023-08-12 07:37 | EKG12_ITS ---
Test Reason : Blood Pressure : / mmHG Vent. Rate : 072 BPM Atrial Rate : 072 BPM P-R Int : 166 ms QRS Dur : 116 ms QT Int : 438 ms P-R-T Axes : 018 -69 055 degrees QTc Int : 479 ms Normal sinus rhythm Right bundle branch block Left anterior fascicular block Bifascicular block Abnormal ECG Confirmed by VIKKI CABRERA MD ([id number]), photography editor SO CARDENAS ([id number]) on 08/13/2023 10:13:14 AM Referred By: Confirmed By:VIKKI CABRERA MD
--- NOTE | 2023-08-12 07:38 | ED.VIS.DYS ---
HPI History of Present Illness Chief Complaint: Shortness of Breath Informant: patient Onset/Context/Timing Onset: Days Context: gradual Timing: Continuous Quality: Positive for Dyspnea on exertion Current Severity: Mild Maximum Severity: Mild Worsened by: Exertion and Coughing Associated Symptoms cough Chest Pain: Positive for None Narrative Narrative: 77-year-old male extensive past medical history including diabetes, CAD, pacemaker defibrillator, COPD without home O2, chronic kidney disease, cardiomyopathy with CHF. Patient is on the blood thinner Eliquis. States that he was hospitalized over a week ago for rhinovirus. She has not felt well since has been home. He has been coughing short of breath. He denies any vomiting or rectal bleeding. No fever. No chest pain or hemoptysis. Said he has chronic leg swelling is no worse. He denies any significant wheezing. PE Risk Factors: Negative for Cancer, OCP + Smoking + > 35, Prior DVT or PE, Recent surgery or Recent travel Prior similar symptoms: Yes Recent Illness/Hospitalization: Yes PFSH PFS Medical History Atherosclerosis of coronary artery of [place] heart without angina pectoris Cardiac arrest with ventricular fibrillation (04/07/12) Chronic kidney disease Congestive heart failure (CHF) COPD (chronic obstructive pulmonary disease) Essential hypertension Former smoker History of diabetes mellitus History of hypertension Hyperlipidemia Hypothyroidism ICD (implantable cardioverter-defibrillator) in place Ischemic cardiomyopathy Left ventricular aneurysm Myocardial infarct Nicotine dependence Obesity 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) Pacemaker Solitary kidney Sustained ventricular tachycardia Ventricular fibrillation Home Medications fexofenadine-pseudoephedrine ER 180 mg-240 mg tablet,ext.release 24 hr 1 tab PO DAILY PRN ALLERGIES 01/20/16 [History Last Taken Unknown] acetaminophen 500 mg tablet (Tylenol Extra Strength) 1,000 mg (2 x 500 mg) PO Q6H PRN PAIN #20 tabs 10/22/21 [Rx Last Taken Unknown] insulin glargine 100 unit/mL (3 mL) subcutaneous pen 63 unit subcut QPM DIABETES 10/22/21 [History Last Taken Unknown] rosuvastatin 20 mg tablet 20 mg PO DAILY CHOLESTEROL #30 tabs 02/03/22 [Rx Last Taken Unknown] insulin lispro 100 unit/mL subcutaneous pen (Humalog KwikPen (U-100) Insulin) 50 unit subcut TIDAC DIABETES 07/20/22 [History Last Taken Unknown] magnesium oxide 400 mg PO QHS SUPPLEMENT 12/27/22 [History Last Taken Unknown] pyridoxine (vitamin B6) 50 mg tablet 50 mg PO TIDCM SUPPLEMENT 12/27/22 [History Last Taken Unknown] carvedilol 25 mg tablet 25 mg PO BID HEART #180 tabs 01/13/23 [Rx Last Taken Unknown] apixaban 5 mg tablet (Eliquis) 5 mg PO BID BLOOD THINNER #180 tabs 04/09/23 [Rx Last Taken Unknown] clopidogrel 75 mg tablet 75 mg PO DAILY BLOOD THINNER 08/06/23 [History Last Taken Unknown] cholecalciferol (vitamin D3) 125 mcg (5,000 unit) tablet 125 mcg PO DAILY SUPPLEMENT 08/12/23 [History Last Taken Unknown] furosemide 20 mg tablet (Lasix) 20 mg PO DAILY 7 days #7 tabs 08/12/23 [Rx Last Taken Unknown] levothyroxine 100 mcg tablet 100 mcg PO DAILY THYROID 08/12/23 [History Last Taken Unknown] Allergy/AdvReac Type Severity Reaction Status Date / Time amiodarone AdvReac Severe significant Verified 12/27/22 16:52 effect on lung function per PFT 09/19/17 Family History Father Colon cancer Mother No problems noted. Surgical History History of electrophysiologic study (10/21/12) History of implantable cardiac defibrillator (ICD) (04/12/12) History of left heart catheterization (01/21/16) Hx of colonoscopy Social History household members: significant other Smoking Status: Former smoker alcohol intake: never substance use type: does not use ROS ROS ED ROS Narrative Shortness of breath. Coughing. Review of Systems ROS Unobtainable: Denies due to encephalopathy Constitutional Constitutional ED: Denies chills or fever(s) Eyes Eyes: Denies blurry vision ENT ENT ED: Denies ear pain Cardiovascular Cardiovascular: Denies chest pain Respiratory/Chest Respiratory/Chest: Reports cough, dyspnea and dyspnea on exertion; Denies sputum Gastrointestinal Gastrointestinal: Denies abdominal pain, diarrhea, nausea or vomiting Genitourinary Genitourinary ED: Denies dysuria or hematuria Musculoskeletal Musculoskeletal: Denies arthralgias Integumentary Denies abscess Neurologic Neurologic: Denies headache(s) Psychiatric Psychiatric: Denies anxiety Endocrine Endocrinology: Denies cold intolerance Hematologic/Lymphatic Hematologic/Lymphatic: Denies lymphadenopathy Allergic/Immunologic Allergic/Immunologic ED: Denies mouth swelling, tongue swelling or urticaria EXAM Physical Exam Narrative Exam Narrative: 77-year-old male no acute distress sitting upright in bed. Pulse ox 90% on room air no hypoxia. H EENT exam dry mucous membranes. Pupils round reactive light. Neck nontender no JVD. No lymphadenopathy. Lungs prolonged expiratory phase. Coarse breath sounds. No rhonchi nor wheezing. Heart regular rate in the 70s. No murmur. Chest wall ribs nontender. Abdomen soft nontender. Moving all 4 extremities. 5 out of 5 fundraising director strength. Dorsi and plantarflexion intact. 1+ pitting edema bilaterally which patient states is his baseline. Neurologically is awake and alert. Answering questions and following commands. No focal motor deficits. Const Vital Signs: 08/12/23 07:29 08/12/23 07:32 08/12/23 07:35 Temperature 98.1 F Temperature Source Temporal Pulse Rate 72 Respiratory Rate 22 H Respiratory Effort Respiratory Depth Respiratory Pattern Blood Pressure 192/90 H Blood Pressure Mean 124 Pulse Ox 92 88 92 Oxygen Delivery Method Room Air Nasal Cannula Oxygen Flow Rate (L/min) 2 08/12/23 07:43 08/12/23 07:44 08/12/23 07:56 Temperature Temperature Source Pulse Rate 74 Respiratory Rate 18 Respiratory Effort Short of Breath Respiratory Depth Shallow Respiratory Pattern Normal Blood Pressure Blood Pressure Mean Pulse Ox 96 Oxygen Delivery Method Nasal Cannula Oxygen Flow Rate (L/min) 2 08/12/23 09:29 08/12/23 10:44 Temperature Temperature Source Pulse Rate 67 64 Respiratory Rate 18 Respiratory Effort Respiratory Depth Respiratory Pattern Blood Pressure 182/77 H 182/77 H Blood Pressure Mean 112 112 Pulse Ox 92 Oxygen Delivery Method Room Air Oxygen Flow Rate (L/min) Positive well nourished and well developed; Negative for cachectic, contractures or unkempt General Appearance ED: well developed and NAD; Negative for unkempt, cachectic, contractures or pallor Nutritional Appearance: Negative for cachectic HEENT Reports dry mucous membranes; Denies moist mucous membranes atraumatic; Negative for trauma or tenderness Mouth ED: Yes dry mucous membranes Mouth: dry mucous membranes Eyes PERRL and EOMs intact bilaterally General Eye ED: Negative for pale conjunctiva or scleral icterus Neck no lymphadenopathy, supple, no meningeal signs and no JVD Lymph Lymphatic: Negative for other Chest Wall Chest: Negative for other Resp No normal respiratory effort and No clear to auscultation bilaterally Resp Narrative: Prolonged expiratory phase bilaterally. Auscultation: Negative for rales, rhonchi or wheezes Cardio regular rate, regular rhythm, S1 normal heart sound, S2 normal heart sound and no murmurs Rate: Negative for bradycardia or tachycardic Rhythm: Negative for abnormal rhythm GI non-tender, non-distended and no masses Inspection: Negative for other Auscultation: normoactive bowel sounds Palpation: soft; Negative for tender, guarding or rebound tenderness present Back/Spine no CVA tenderness and normal to inspection General Back: Negative for CVA tenderness or tenderness Extremity Negative for normal to inspection Extremity Narrative: 1+ pitting edema bilaterally. Baseline for patient. General Extremety ED: Yes edema; Negative for tenderness General Extremity: edema Neuro oriented x3 and CN's II-XII intact bilaterally Sensorium / Orientation: alert, oriented to person, oriented to place and oriented to time; Negative for orientation impaired, confused, lethargic or stuporous Speech: speech normal Motor Exam: strength 5/5 throughout Psych mental status grossly normal Appearance: Negative for unkempt Attitude: No agitated Mood & Affect: Negative for depressed, anxious or tearful Thought Process: normal thought process Skin no wounds and skin turgor normal General Skin Exam: Negative for jaundice or pallor Lesions: no lesions Rashes: no rashes Trauma: Negative for abrasion or laceration MDM MDM MDM Narrative Medical decision making narrative: 77-year-old male complicated past medical history was generalized fatigue, weakness and shortness of breath. Recent hospitalization for rhinovirus. This could be secondary to infection viral versus bacterial. Could be secondary to COPD. Versus CHF. Versus other etiologies. IV steroids. DuoNeb and albuterol aerosols. Repeat exam patient is doing well at 8:50 AM. I turned off his oxygen nurses again to walk him and check his pulse ox and little bit. His labs are not significantly remarkable other than his chronic renal insufficiency. His elevated BNP. Chest x-ray is unremarkable. I discussed all that with the patient. Patient doing well he walked well. At times his pulse ox dropped to 89-90% but he said he felt like urinating. He does not want to be admitted. Sitting in bed his pulse ox is in the 92-95 range. I believe this may be secondary to pulmonary edema. Patient will place on Lasix 20 mg a day for the next week. I spoke to his primary care physician Dr. Nathen Chang and seen him recently. He will ensure close follow-up. We need to watch the patient's kidney function because he has chronic kidney disease also. Patient is comfortable with the plan. To be given his first dose of Lasix p.o. here. Lab Data Attestation: I reviewed the patient's lab results. Lab results narrative: CBC normal. White count of 10. H&H 13 and 41. Platelets 171. Electrolytes show sodium 135 gap 4. BUN 26 creatinine 1.97 with a history of chronic kidney disease. Glucose 284. Troponin is normal at 36. BNP elevated at 552. COVID, flu and RSV negative. Labs: Laboratory Results - last 24 hr 08/12/23 07:41 WBC 10.0 RBC 4.59 L Hgb 13.4 Hct 41.4 MCV 90.2 MCH 29.2 MCHC 32.4 RDW Std Deviation 44.4 H RDW Coeff of Peggy 13.5 Plt Count 171 MPV 10.5 Immature Gran % (Auto) 0.400 Neut % (Auto) 79.6 H Lymph % (Auto) 9.0 L [place] % (Auto) 8.8 Eos % (Auto) 1.7 Baso % (Auto) 0.5 Absolute Neuts (auto) 8.0 H Absolute Lymphs (auto) 0.90 Nucleated RBC % 0 Sodium 135 L Potassium 4.5 Chloride 102 Carbon Dioxide 29.0 Anion Gap 4 L BUN 26 H Creatinine 1.97 H Estim Creat Clear Calc 41.02 Est GFR (MDRD) Af Amer 43 L Est GFR (MDRD) Non-Af 35 L BUN/Creatinine Ratio 13.2 Glucose 284 H Calcium 9.2 Troponin I High Sens 36 B-Natriuretic Peptide 552.0 H Radiography Chest X-Ray - ED: 2 View, Read by ED Physician, Heart, Lungs, Mediastinum, Bony Structures, No Acute Disease and Chronic Changes Diagnostic Testing: Clinical Impression(s) from Imaging Studies Chest X-Ray 08/12/23 08:15 IMPRESSION: Mild degree of increased markings at the lung bases slightly more prominent on the left side suggestive of bibasilar scarring. Electronically Signed: Juan Ramon Jack MD at 8:39 EDT , Chest x-ray, 2 views, AP and lateral, interpreted by myself shows no acute process. Normal cardiac silhouette. Left-sided defibrillator. No significant effusion. No pneumonia. Rhythm Strip Rhythm Strip: Sinus Rhythm Rate: 72 Ectopy: None EKG Initial EKG: Attestation: I personally reviewed and interpreted this EKG as follows: Interpretation: Sinus Rhythm and No Acute Injury Pattern Comments: Normal sinus rhythm rate of 72 no acute signs of AR or ischemia. Right bundle branch block. No acute signs of AR or ischemia. Discharge Plan Triage Chief Complaint: Shortness of Breath ED Provider: Solomon Griffiths Dx/Rx/DC Orders Clinical Impression: History of COPD, History of chronic kidney disease, Acute dyspnea, CHF (congestive heart failure), Peripheral edema Instructions: ED Dyspnea, ED Peripheral Edema, Bilateral Prescriptions: New furosemide [Lasix] 20 mg tablet 20 mg PO DAILY 7 Days Qty: 7 0RF No Action fexofenadine-pseudoephedrine 1 TAB.SR tablet extended release 24 hr 1 tab PO DAILY PRN (Reason: ALLERGIES ) Hold Instructions: Advised to take it as needed for nasal congestion, cold symptoms/allergic rhinitis insulin glargine 100 unit/mL (3 mL) Insulin Pen 63 unit SUBCUT QPM acetaminophen [Tylenol Extra Strength] 500 mg tablet 1,000 mg PO Q6H PRN (Reason: PAIN ) Qty: 20 0RF rosuvastatin 20 mg tablet 20 mg PO DAILY Qty: 30 2RF insulin lispro [Humalog KwikPen Insulin] 100 unit/mL insulin pen 50 unit subcut TIDAC pyridoxine (vitamin B6) 50 mg tablet 50 mg PO TIDCM magnesium oxide 400 mg magnesium tablet 400 mg PO QHS clopidogrel 75 mg tablet 75 mg PO DAILY levothyroxine 100 mcg tablet 100 mcg PO DAILY cholecalciferol (vitamin D3) 125 mcg (5,000 unit) tablet 125 mcg PO DAILY carvedilol 25 mg tablet 25 mg PO BID Qty: 180 3RF Eliquis 5 mg tablet 5 mg PO BID Qty: 180 3RF Primary Care Provider: Nathen Chang Referrals: Nathen Chang MD [Primary Care Provider] - As soon as possible Activity Restrictions/Additional Instructions: I think your shortness of breath is secondary to fluid buildup. You will be placed on Lasix 1 pill 20 mg once a day taken between breakfast and lunch every morning. It can make you pee a lot. Do not take it at night because you will be up all night urinating. This should help your shortness of breath. You need to have close follow-up with Dr. Nathen Chang who I spoke with today to make sure that you are doing well this is improving you are not affecting your kidney function. Return if feeling worse. Disposition Disposition: Home, Self Care
[2023-08-12 07:50] LABS: Basophil# 0.05 X10^3/uL; Basophil% 0.5 % (0-1); Eosinophil# 0.17 X10^3/uL; Eosinophils% 1.7 % (0-5); Hematocrit 41.4 % (40-54); Hemoglobin 13.4 g/dL (13.0-16.5); Mean Corp Hgb Conc 32.4 g/dL (32-36); Mean Corpuscular Hgb 29.2 pg (27.0-32.0); Mean Corpuscular Volume 90.2 fL (80-94); Mean Platelet Vol. 10.5 fl (6.2-12.0); Monocyte# 0.88 X10^3/uL; Monocyte% 8.8 % (0-10); NRBC Flagged by Analyzer 0 % (0-5); Neutrophil # 7.97 X10^3/uL (2.7-7.7); Neutrophil % 79.6 % (47-70); Platelet Count 171 K/mm3 (150-450); RBC Distribution Width CV 13.5 % (11.6-14.6); RBC Distribution Width SD 44.4 fl (35.1-43.9); Red Blood Count 4.59 M/mm3 (4.6-6.2)
[2023-08-12] MEDS: Albuterol 2.5 MG/3 ML VIAL.NEB. INHALATION (07:55)
[2023-08-12] MEDS: Ipratropium/Albuterol Sulfate 3 ML AMPUL.NEB INHALATION (07:55)
[2023-08-12 08:06] LABS: Anion Gap 4 (5-15); BUN 26 mg/dL (7-18); BUN/Creat Ratio 13.2 RATIO (10-20); Calcium,Total 9.2 mg/dL (8.5-10.1); Chloride 102 mmol/L (98-107); Creatinine, Serum 1.97 mg/dL (0.70-1.30); EST Glomerular Filtration Rate 35 mL/min (>60); Est Glom Filt Rate - Afr Amer 43 mL/min (>60); Estimated Creatinine Clearance 41.02 ml/min; Glucose 284 mg/dL (74-106); Potassium 4.5 mmol/L (3.5-5.1); Sodium Level 135 mmol/L (136-145); Troponin-I HS 36 pg/mL (3.0-78.0)
--- NOTE | 2023-08-12 08:15 | RAD_ITS ---
STUDY: X-RAY CHEST REASON FOR EXAM: Male, 77 years old. Dyspnea TECHNIQUE: PA and lateral views of the chest. COMPARISON: Comparison is made with prior study dated August 07, 2023. FINDINGS: Minimal increased markings at the lung bases suggestive of bibasilar scarring. Stable examination. Scattered calcified granulomas. There is no demonstrated pleural abnormality. Normal size heart. A left-sided dual-chamber pacemaker is seen. Normal mediastinum and duke. Normal visualized pulmonary arteries. There is atherosclerotic calcification of the aortic arch with tortuosity. There is demineralization of the osseous structures. Normal visualized ribs, clavicles, and shoulders. There is no demonstrated abnormality of the visualized soft tissue structures of the upper abdomen. RAD/Chest PA and Lateral IMPRESSION: Mild degree of increased markings at the lung bases slightly more prominent on the left side suggestive of bibasilar scarring. Electronically Signed: Juan Ramon Jcak MD at 8:39 EDT ,
[2023-08-12] MEDS: MethylPREDNISolone 125 MG/2 ML Vial IV (08:35)
[2023-08-12] MEDS: Furosemide 20 MG Tablet PO (12:12)
== END 2023-08-12 12:13 | disposition home or self-care (01) ==
PROVIDERS: Emergency Provider Emergency Medicine; PCP Family Medicine; Visit Provider Emergency Medicine
DX: R06.02 Shortness of breath (principal); I50.9 Heart failure, unspecified; I13.0 Hypertensive heart and chronic kidney disease with heart failure and stage 1 through stage 4 chronic kidney disease, or unspecified chronic kidney disease; J44.9 Chronic obstructive pulmonary disease, unspecified; E11.22 Type 2 diabetes mellitus with diabetic chronic kidney disease; N18.9 Chronic kidney disease, unspecified; Z87.891 Personal history of nicotine dependence; I25.10 Atherosclerotic heart disease of native coronary artery without angina pectoris; Z95.810 Presence of automatic (implantable) cardiac defibrillator; Z79.01 Long term (current) use of anticoagulants; E03.9 Hypothyroidism, unspecified; Z79.890 Hormone replacement therapy; R60.0 Localized edema
CPT/HCPCS: 96374; 99284; 71046; 80048; 83880; 84484; 85025; 87631; 93005; 94640; A4216

== ENCOUNTER 2023-08-13 23:41 | Inpatient (IN) | payer MEDICARE, SELFPAY ==
[2023-08-13 23:42] VITALS: BP 120/57; RESP 84; TEMP 36.4; O2SAT 90; BMI 33.7
[2023-08-13 23:50] VITALS: O2SAT 90
[2023-08-14] VITALS (13 sets, daily range): BP systolic 106–149; BP diastolic 50–103; PULSE 66–79; RESP 16–34; TEMP 36.3–36.9; O2SAT 90–94; BMI 32.7
[2023-08-14 00:11] LABS: Allen Test Positive; Base Excess -3 mmol/L (-2 to +2); Bicarbonate 22.5 mmol/L (22-26); Blood Gas Specimen Type ART; Mode Not entered; O2 Delivery Device Cannula; PO2 64 mmHG (75-100); SITE R Radial; SO2 92 % (95-99); Total Carbon Dioxide 24 mmol/L; pCO2 38.9 mmHg (35-45); pH 7.37 (7.35-7.45)
--- NOTE | 2023-08-14 00:12 | CT_ITS ---
INDICATION: ? pneumonia EXAMINATION: CT CHEST WITHOUT CONTRAST - CT Chest W/O Contrast Injection TECHNIQUE: Helically acquired images were obtained of the chest. A radiation dose optimization technique was used for this scan. IV Contrast dosage and agent: None. RADIATION DOSAGE (If Supplied By Facility): CTDIvol = ( 19.33 ) mGy, DLP = ( 653.25 ) mGycm COMPARISON: Chest x-ray 08/12/2023. FINDINGS: LUNGS: Large extensive area of consolidation essentially entire right lower lobe, with a more confluent rounded opacity posteriorly approximately 6 cm. Patchy groundglass opacity in the right upper lobe. LARGE AIRWAYS: Unremarkable. PLEURA: Small right pleural effusion. No pneumothorax. MEDIASTINUM: There are a few prominent lymph nodes in the mediastinum and hilar regions. HEART: Not enlarged. Pacemaker leads. CORONARY ARTERIES: Coronary artery calcification is seen. AORTA/VESSELS: No aortic aneurysm. ESOPHAGUS: Unremarkable. with UPPER ABDOMEN: No acute findings. BONES/SOFT TISSUES: No acute abnormality. OTHER/LINES: None. CT/Chest without Contrast IMPRESSION: Extensive consolidation right lower lobe and patchy airspace disease right upper lobe, with small right pleural effusion, most consistent with pneumonia. Masslike area in the right lower lobe is likely more confluent pneumonia. Recommend CT chest follow-up in 4-6 weeks after treatment to confirm resolution and rule out mass. Electronically Signed: Estefania Stern MD at 2:34 EDT ,
[2023-08-14] MEDS: Albuterol 2.5 MG/3 ML VIAL.NEB. INHALATION (00:22)
[2023-08-14] MEDS: Ipratropium/Albuterol Sulfate 3 ML AMPUL.NEB INHALATION (00:22)
[2023-08-14 01:10] LABS: Absolute Lymphocyte Count 0.75 X10^3/uL (0.83-4.51); Absolute Neutrophil Count 11.2 X10^3/uL (2.0-7.7); Basophil# 0.01 X10^3/uL; Basophil% 0.1 % (0-1); Eosinophil# 0.04 X10^3/uL; Eosinophils% 0.3 % (0-5); Hematocrit 45.2 % (40-54); Hemoglobin 14.8 g/dL (13.0-16.5); Lymphocyte # 0.75 X10^3/ul (0.83-4.51); Lymphocyte % 5.8 % (19-41); Mean Corp Hgb Conc 32.7 g/dL (32-36); Mean Corpuscular Hgb 29.6 pg (27.0-32.0); Mean Corpuscular Volume 90.4 fL (80-94); Monocyte# 0.57 X10^3/uL; Monocyte% 4.4 % (0-10); NRBC Flagged by Analyzer 0 % (0-5); Neutrophil % 86.6 % (47-70); POSITIVE MORPHOLOGY YES; Platelet Count 181 K/mm3 (150-450); White Blood Count 12.9 K/mm3 (4.4-11.0)
[2023-08-14] MEDS: MethylPREDNISolone 125 MG/2 ML Vial IV (01:14)
[2023-08-14 01:29] LABS: Anion Gap 6 (5-15); BUN 44 mg/dL (7-18); BUN/Creat Ratio 17.2 RATIO (10-20); Calcium,Total 8.9 mg/dL (8.5-10.1); Chloride 101 mmol/L (98-107); Creatinine, Serum 2.56 mg/dL (0.70-1.30); EST Glomerular Filtration Rate 26 mL/min (>60); Est Glom Filt Rate - Afr Amer 31 mL/min (>60); Estimated Creatinine Clearance 31.34 ml/min; Glucose 271 mg/dL (74-106); Magnesium 2.2 mg/dL (1.6-2.6); Sodium Level 133 mmol/L (136-145)
[2023-08-14 02:10] LABS: BNP,B-Type NATRIURETIC PEPTIDE 468.7 pg/mL (0-100)
[2023-08-14 02:24] LABS: Differential Indicated SCAN CRITERIA MET
[2023-08-14 02:25] LABS: Differential Comment SCANNED
--- NOTE | 2023-08-14 02:45 | HP.PCM.HOS_ITS ---
[facility] - General General Date of Admission: 08/14/23 Date of Service: 08/14/23 Chief Complaint: Worsening SOB. HPI Narrative PARK MARISCAL, is a 77 M with a past medical history of essential hypertension, hyperlipidemia, hypothyroidism, obesity; with BMI of 33.7 this admission, DM-1; of unknown control, diabetic polyneuropathy, CAD; s/p inferoposterior PR (2012), history of CHF, history of ischemic cardiomyopathy, history of VF cardiac arr est; s/p PPM/AICD (2012), history of LV aneurysm, history of SVT, history of PAF; on Eliquis and Coreg (with listed intolerance to amiodarone), history of CVA, solitary kidney; with CKD stage III, history of COVID-19 and recent admission here from August 06, 2023 to August 08, 2023 for Rhinovirus and Thromb ocytopenia with Adult [id number] who re-presents to [facility] ER complaining of worsening SOB. Mr. Mariscal reports he has continued to decline in spite of recent aggressive t reatment with wheezing and cough causing dyspnea on exertion that has now progressed to shortness of breath at rest. There was no report of fever, chills, nausea, vomiting, diarrhea or constipation at his ECF but he had multiple breathing treatments and supplemental oxygen without improvement so [facility] finally decided to activate EMS and have him sent in for further evaluation and treatment. In the ER he was noted to have CT scan of the chest positive for extensive consolidation of the right lower lobe and patchy airspace disease in the right upper lobe with a small right pleural effusion consistent with multifocal pneumonia of nosocomial origin likely representing bacterial superinfection after recent severe viral syndrome with a questionable 'masslike' area in the right lower lobe with corresponding leukocytosis of 12.9 present on admission complicated by clinical evidence of acute hypoxic respiratory insufficiency and laboratory evidence of elevated BNP of 468.7 pg/mL suggestive of superimposed acute exacerbation of chronic CHF and he was then admitted to the PCU for ongoing care for stay that is expected to be greater than 2 midnights. 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) Pacemaker Solitary kidney Sustained ventricular tachycardia Ventricular fibrillation Home Medications fexofenadine-pseudoephedrine ER 180 mg-240 mg tablet,ext.release 24 hr 1 tab PO DAILY PRN ALLERGIES 01/20/16 [History Last Taken Unknown] acetaminophen 500 mg tablet (Tylenol Extra Strength) 1,000 mg (2 x 500 mg) PO Q6H PRN PAIN #20 tabs 10/22/21 [Rx Last Taken Unknown] insulin glargine 100 unit/mL (3 mL) subcutaneous pen 63 unit subcut QPM DIABETES 10/22/21 [History Last Taken Unknown] rosuvastatin 20 mg tablet 20 mg PO DAILY CHOLESTEROL #30 tabs 02/03/22 [Rx Last Taken Unknown] insulin lispro 100 unit/mL subcutaneous pen (Humalog KwikPen (U-100) Insulin) 50 unit subcut TIDAC DIABETES 07/20/22 [History Last Taken Unknown] magnesium oxide 400 mg PO QHS SUPPLEMENT 12/27/22 [History Last Taken Unknown] pyridoxine (vitamin B6) 50 mg tablet 50 mg PO TIDCM SUPPLEMENT 12/27/22 [History Last Taken Unknown] carvedilol 25 mg tablet 25 mg PO BID HEART #180 tabs 01/13/23 [Rx Last Taken Unknown] apixaban 5 mg tablet (Eliquis) 5 mg PO BID BLOOD THINNER #180 tabs 04/09/23 [Rx Last Taken Unknown] clopidogrel 75 mg tablet 75 mg PO DAILY BLOOD THINNER 08/06/23 [History Last Taken Unknown] cholecalciferol (vitamin D3) 125 mcg (5,000 unit) tablet 125 mcg PO DAILY SUPPLEMENT 08/12/23 [History Last Taken Unknown] furosemide 20 mg tablet (Lasix) 20 mg PO DAILY 7 days #7 tabs 08/12/23 [Rx Last Taken Unknown] levothyroxine 100 mcg tablet 100 mcg PO DAILY THYROID 08/12/23 [History Last Taken Unknown] Allergy/AdvReac Type Severity Reaction Status Date / Time amiodarone AdvReac Severe significant Verified 08/13/23 23:50 effect on lung function per PFT 09/19/17 Family History Father Colon cancer Mother No problems noted. Surgical History History of electrophysiologic study (10/21/12) History of implantable cardiac defibrillator (ICD) (04/12/12) History of left heart catheterization (01/21/16) Hx of colonoscopy Social History household members: significant other Smoking Status: Former smoker alcohol intake: never substance use type: does not use ROS ROS Narrative Review of systems: General: Patient denies fever or chills HENT: Denies headache, denies stuffy nose, denies sore throat EYES: Denies changes in vision or discharge from eyes. Resp: Patient admits to severe shortness of breath wheezing or rhonchi in spite of aggressive treatment and frequent nebulizers. Cardiac: Denies chest pain, palpitations or heart racing. GI: Denies abdominal pain, denies changes in bowel, denies nausea or vomiting. : Denies changes in urination Extremity: Denies swelling Musculoskeletal: Feels somewhat generally weak and unwell but denies arthralgias or myalgias. Neuro: Patient denies headache, paresthesias or focal neurologic weakness. Heme: Denies any bleeding or bruising Skin: Denies rashes Psychiatric: No complaints voiced related to uncontrolled depression or anxiety. Endocrine: No polyuria, polydipsia or polyphagia. The rest of the 14 point ROS was negative except for positives in HPI. Vital Signs Vital Signs Vital Signs: 08/13/23 23:42 08/13/23 23:50 08/14/23 00:23 Temperature 97.5 F L Temperature Source Temporal Pulse Rate 78 Respiratory Rate 84 H 19 H Respiratory Effort Short of Breath Respiratory Pattern Tachypnea Blood Pressure 120/57 L Blood Pressure Mean 78 Pulse Ox 90 Oxygen Delivery Method Nasal Cannula Nasal Cannula Oxygen Flow Rate (L/min) 4 4 08/14/23 00:42 08/14/23 01:00 08/14/23 02:00 Temperature 98.2 F Temperature Source Oral Pulse Rate 79 79 78 Respiratory Rate 22 H 22 H 30 H Respiratory Effort Respiratory Pattern Blood Pressure 121/77 H 106/50 L 122/57 H Blood Pressure Mean 91 68 78 Pulse Ox 90 91 90 Oxygen Delivery Method Nasal Cannula Nasal Cannula Nasal Cannula Oxygen Flow Rate (L/min) 5 5 6 Weight Weight: 248 lb 10.903 oz Body Mass Index (BMI) 33.7 Physical Exam Const alert and oriented x3 Constitutional Narrative: Moderate respiratory distress noted with patient appearing acutely ill. General Appearance: cooperative Orientation / Consciousness: lethargic HEENT normocephalic, head/scalp atraumatic and hearing grossly normal bilaterally HEENT Narrative: Mucous membranes dry. Eyes PERRL and EOMs intact bilaterally Neck no lymphadenopathy and supple Resp Resp Narrative: Diminished breath sounds throughout with scattered rhonchi and faint wheezes. Auscultation: rhonchi and wheezes Cardio regular rate and regular rhythm GI normal to inspection, nondistended, normoactive bowel sounds, soft to palpation, non-tender and non-distended GI Narrative: Obese. Extremity normal to inspection, full ROM and no clubbing, cyanosis or edema Skin Skin Narrative: Patient has no evidence of jaundice, abscess or rash. Neuro oriented x3, CN's II-XII intact bilaterally, moves all extremities and no focal motor deficits Sensorium / Orientation: awake, alert, oriented to person, oriented to place and oriented to time Speech: speech normal Psych affect normal Psych Narrative: Patient is very fatigued. Results Medical Records Data Attestation: I reviewed the patient's medical records Lab / Micro Data Attestation: I reviewed the patient's lab results. 08/13/23 23:57 08/13/23 23:57 Labs: Laboratory Results - last 24 hr 08/13/23 23:57: WBC 12.9 H, RBC 5.00, Hgb 14.8, Hct 45.2, MCV 90.4, MCH 29.6, MCHC 32.7, RDW Std Deviation 46.0 H, RDW Coeff of Peggy 14.0, Plt Count 181, MPV 11.0, Immature Gran % (Auto) 2.800 H, Neut % (Auto) 86.6 H, Lymph % (Auto) 5.8 L , Prentiss % (Auto) 4.4, Eos % (Auto) 0.3, Baso % (Auto) 0.1, Absolute Neuts (auto) 11.2 H, Absolute Lymphs (auto) 0.75 L, Nucleated RBC % 0, Differential Comment SCANNED, Sodium 133 L, Potassium 5.0, Chloride 101, Carbon Dioxide 26.0, Anion Gap 6, BUN 44 H, Creatinine 2.56 H, Estim Creat Clear Calc 31.34, Est GFR (MDRD) Af Amer 31 L, Est GFR (MDRD) Non-Af 26 L, BUN/Creatinine Ratio 17.2, Glucose 271 H, Calcium 8.9, Magnesium 2.2, B-Natriuretic Peptide 468.7 H ABG Data ABG results: ABG 08/14/23 00:08 Specimen Type ART Sample Site R Radial pH 7.37 Bicarbonate Actual 22.5 Total CO2 24 Base Excess -3 L O2 Saturation 92 L O2 % 5.0 ABG pCO2 38.9 ABG pO2 64 L Zachary Test Positive O2 Delivery Device Cannula Vent Mode Not entered Imaging Radiology Impression Chest CT 08/14/23 00:12 IMPRESSION: Extensive consolidation right lower lobe and patchy airspace disease right upper lobe, with small right pleural effusion, most consistent with pneumonia. Masslike area in the right lower lobe is likely more confluent pneumonia. Recommend CT chest follow-up in 4-6 weeks after treatment to confirm resolution and rule out mass. Electronically Signed: Estefania Stern MD at 2:34 EDT , Assessment & Plan Assessment/Plan (1) Pneumonia: QUALIFIERS: Laterality: right Lung location: unspecified part of lung Pneumonia type: due to unspecified organism Qualified Code(s): J18.9 - Pneumonia, unspecified organism (2) Acute CHF (congestive heart failure): QUALIFIERS: Heart failure type: unspecified Qualified Code(s): I50.9 - Heart failure, unspecified (3) Acute respiratory insufficiency: (4) Viral syndrome: (5) Adult failure to thrive: (6) Weakness: PLAN: Plan 1. CT scan of the chest positive for extensive consolidation of the Right lower lobe and patchy airspace disease in the Right upper lobe with a small Right pleural effusion consistent with multifocal pneumonia of nosocomial origin likely representing bacterial superinfection after recent severe viral syndrome with a questionable 'masslike' area in the Right lower lobe with corresponding leukocytosis of 12.9 present on admission - Admit to PCU. Continue broad- spectrum antibiotics with IV Zyvox and IV Zosyn and await culture and sensitivity data. Continue IV Solu-Medrol plus give scheduled and as needed nebulizers. Start Mucinex 1200 mg p.o. twice daily. Give Tylenol as needed pain or fever. We will also initiate chest vest percussion therapy per protocol to help mobilize significant secretions evident on CT. Patient did not fulfill enough criteria to qualify for being diagnosed with sepsis on admission. 2. Elevated BNP of 468.7 pg/mL present on admission suggestive of superimposed acute exacerbation of chronic systolic CHF complicating #1 - Give Lasix IV plus supplemental potassium and magnesium. Recheck chest x-ray and BNP in the a.m. to follow trend and monitor response to treatment. Check echocardiogram to evaluate LVEF. 3. Acute hypoxic respiratory insufficiency arising from #1 & #2 - Wean supplemental oxygen as tolerated. 4. Recent admission here from August 06, 2023 to August 08, 2023 for Rhinovirus and Thrombocytopenia with Adult [id number] and subsequent failure to improve in spite of appropriate treatment - Noted. 5. History of PAF; on Eliquis and Coreg (with listed intolerance to amiodarone) - Continue Eliquis but hold Coreg at this time. 6. Essential hypertension - Hold scheduled antihypertensives until infection outlined #1 is controlled. Give IV hydralazine as needed for systolic blood pressure greater than 160 mmHg. 7. Hyperlipidemia - Resume statin. 8. Hypothyroidism - Continue Synthroid and check TSH in light of #4. 9. Obesity; with BMI of 33.7 this admission - Weight loss will be recommended. 10. DM-1; of unknown control with diabetic polyneuropathy - ADA diet. Fingerstick blood sugars before every meal and at bedtime plus lowest intensity sliding scale insulin. Check hemoglobin A1c to objectively evaluate quality of diabetic control. 11. CAD; s/p inferoposterior PR (2012) - Noted. 12. History of ischemic cardiomyopathy - Noted. 13. History of VF cardiac arrest; s/p PPM/AICD (2013) - Noted. 14. History of LV aneurysm - Noted. 15. History of SVT - Stable with no evidence of recurrence. 16. History of CVA - Noted. 17. Solitary kidney; with CKD stage III - Stable. Check daily BMP to ensure continued stability. 18. History of COVID-19 - Noted. 19. DVT prophylaxis - Patient is on Eliquis for #5 which will be continued. Total time: Approximately 85 minutes. Charges/Coding Visit Charges Inpatient E&M: 02103 Init Hosp L3
--- NOTE | 2023-08-14 02:51 | EDS_ITS ---
HPI History of Present Illness Chief Complaint: Shortness of Breath Informant: patient and EMS Narrative Narrative: Patient is a 77-year-old male with past medical history of hypertension and hyperlipidemia as well as congestive heart failure and chronic kidney disease. He also has a history of COPD but does not need supplemental oxygen at baseline. Patient was recently admitted to the hospital on August 05 secondary to failure to thrive and was found to have rhinovirus. He was in the hospital for multiple days and discharged home. After returning home he began to have increased shortness of breath and weakness and was seen in the ER on August 11. Initially he was mildly hypoxic at a value of 88 but after treatments his oxygen status improved and he could ambulate without any hypoxia. He was discharged home and states that in the last 24 hours his symptoms have returned and worsened. EMS states when they arrived his pulse ox was in the low 80s on room air. Patient denies any fevers or chills but states that he has generalized weakness and fatigue and with the persistent shortness of breath and worsening symptoms he has concern for infection and he was brought back in for evaluation 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) Pacemaker Solitary kidney Sustained ventricular tachycardia Ventricular fibrillation Home Medications fexofenadine-pseudoephedrine ER 180 mg-240 mg tablet,ext.release 24 hr 1 tab PO DAILY PRN ALLERGIES 01/20/16 [History Last Taken Unknown] acetaminophen 500 mg tablet (Tylenol Extra Strength) 1,000 mg (2 x 500 mg) PO Q6H PRN PAIN #20 tabs 10/22/21 [Rx Last Taken Unknown] insulin glargine 100 unit/mL (3 mL) subcutaneous pen 63 unit subcut QPM DIABETES 10/22/21 [History Last Taken Unknown] rosuvastatin 20 mg tablet 20 mg PO DAILY CHOLESTEROL #30 tabs 02/03/22 [Rx Last Taken Unknown] insulin lispro 100 unit/mL subcutaneous pen (Humalog KwikPen (U-100) Insulin) 50 unit subcut TIDAC DIABETES 07/20/22 [History Last Taken Unknown] magnesium oxide 400 mg PO QHS SUPPLEMENT 12/27/22 [History Last Taken Unknown] pyridoxine (vitamin B6) 50 mg tablet 50 mg PO TIDCM SUPPLEMENT 12/27/22 [History Last Taken Unknown] carvedilol 25 mg tablet 25 mg PO BID HEART #180 tabs 01/13/23 [Rx Last Taken Unknown] apixaban 5 mg tablet (Eliquis) 5 mg PO BID BLOOD THINNER #180 tabs 04/09/23 [Rx Last Taken Unknown] clopidogrel 75 mg tablet 75 mg PO DAILY BLOOD THINNER 08/06/23 [History Last Taken Unknown] cholecalciferol (vitamin D3) 125 mcg (5,000 unit) tablet 125 mcg PO DAILY SUPPLEMENT 08/12/23 [History Last Taken Unknown] furosemide 20 mg tablet (Lasix) 20 mg PO DAILY 7 days #7 tabs 08/12/23 [Rx Last Taken Unknown] levothyroxine 100 mcg tablet 100 mcg PO DAILY THYROID 08/12/23 [History Last Taken Unknown] Allergy/AdvReac Type Severity Reaction Status Date / Time amiodarone AdvReac Severe significant Verified 08/13/23 23:50 effect on lung function per PFT 09/19/17 Family History Father Colon cancer Mother No problems noted. Surgical History History of electrophysiologic study (10/21/12) History of implantable cardiac defibrillator (ICD) (04/12/12) History of left heart catheterization (01/21/16) Hx of colonoscopy Social History household members: significant other Smoking Status: Former smoker alcohol intake: never substance use type: does not use ROS ROS ED Constitutional Constitutional ED: Reports chills, fever(s) and subjective Eyes Eyes: Denies change in vision or diplopia ENT ENT ED: Reports rhinorrhea; Denies sore throat Cardiovascular Cardiovascular: Denies chest pain Respiratory/Chest Respiratory/Chest: Reports cough and dyspnea Gastrointestinal Gastrointestinal: Denies abdominal pain, diarrhea, nausea or vomiting Genitourinary Genitourinary ED: Denies dysuria Musculoskeletal Musculoskeletal: Reports myalgias Integumentary Denies rash Neurologic Neurologic: Reports weakness; Denies headache(s) Hematologic/Lymphatic Hematologic/Lymphatic: Denies easy bleeding or easy bruising EXAM Physical Exam Const Vital Signs: 08/13/23 23:42 08/13/23 23:50 08/14/23 00:23 Temperature 97.5 F L Temperature Source Temporal Pulse Rate 78 Respiratory Rate 84 H 19 H Respiratory Effort Short of Breath Respiratory Pattern Tachypnea Blood Pressure 120/57 L Blood Pressure Mean 78 Pulse Ox 90 Oxygen Delivery Method Nasal Cannula Nasal Cannula Oxygen Flow Rate (L/min) 4 4 08/14/23 00:42 08/14/23 01:00 08/14/23 02:00 Temperature 98.2 F Temperature Source Oral Pulse Rate 79 79 78 Respiratory Rate 22 H 22 H 30 H Respiratory Effort Respiratory Pattern Blood Pressure 121/77 H 106/50 L 122/57 H Blood Pressure Mean 91 68 78 Pulse Ox 90 91 90 Oxygen Delivery Method Nasal Cannula Nasal Cannula Nasal Cannula Oxygen Flow Rate (L/min) 5 5 6 08/14/23 03:00 08/14/23 03:07 Temperature 98.0 F 98.1 F Temperature Source Oral Pulse Rate 78 76 Respiratory Rate 34 H 19 H Respiratory Effort Respiratory Pattern Blood Pressure 125/55 H 125/55 H Blood Pressure Mean 78 78 Pulse Ox 92 92 Oxygen Delivery Method Nasal Cannula Oxygen Flow Rate (L/min) 6 Positive well nourished, well developed and obese General Appearance ED: well developed and pallor Nutritional Appearance: obese HEENT Reports dry mucous membranes HEENT Narrative: Mucous membranes are dry and tacky There is cobblestoning noted in the posterior pharynx consistent with sinus drainage without airway edema or compromise No secondary changes to suggest infection Mouth ED: Yes dry mucous membranes Mouth: dry mucous membranes Eyes PERRL and EOMs intact bilaterally General Eye ED: Negative for scleral icterus Neck supple and no JVD Neck Narrative: No nuchal rigidity or meningeal signs Chest Wall palpation of chest normal Resp Resp Narrative: Patient is tachypneic with diminished breath sounds throughout and diffuse rhonchi and faint expiratory wheeze in the bilateral lower lobes slightly greater on the right Cardio regular rate and regular rhythm GI non-tender, non-distended and no masses GI Narrative: Abdomen is soft nontender nondistended with hypoactive bowel sounds. No voluntary guarding or rigidity or pulsatile mass No fluid wave noted Auscultation: hypoactive bowel sounds Palpation: soft Extremity Extremity Narrative: +1 pitting edema to the bilateral lower extremities that is equal and symmetric Negative Homans' sign bilaterally Neuro oriented x3 and CN's II-XII intact bilaterally Neuro Narrative: Patient has generalized weakness without focal neurologic deficit Sensorium / Orientation: alert Psych mental status grossly normal Skin no rashes or lesions noted and No skin turgor normal Skin Narrative: Skin is pale in color but capillary refills less than 3 seconds Skin turgor is increased General Skin Exam: pallor; Negative for jaundice MDM MDM MDM Narrative Medical decision making narrative: Patient presented to the ER afebrile but was requiring 6 L of nasal cannula oxygen to keep his pulse ox at approximately 90%. He does not require supplemental oxygen at baseline and therefore there is concern for potential infection or CHF exacerbation causing his symptoms. The patient is on Eliquis and therefore concern for PE is low and I do not feel need for a CTA. As patient has recently had a chest x-ray 24 hours ago that did not show any obvious signs of fluid or infection I did elect to perform a noncontrast CT for more accurate picture. This showed a right upper and lower lobe pneumonia and small pleural effusion. This does correlate with the fact he is now hypoxic and requiring supplemental oxygen. He was recently diagnosed with rhinovirus but he does have a mild elevation to his white count and there is concern that he has a secondary bacterial infection so he had blood cultures obtained and was started on vancomycin and Zosyn because of his recent hospitalization. At this time he requires supplemental oxygen which he does not have available at home and therefore is not safe for discharge so medicine was contacted to admit the patient at this time History & Record Review Discussion w/independent historian: EMS personnel and Patient Lab Data Attestation: I reviewed the patient's lab results. Labs: Laboratory Results - last 24 hr 08/13/23 23:57 WBC 12.9 H RBC 5.00 Hgb 14.8 Hct 45.2 MCV 90.4 MCH 29.6 MCHC 32.7 RDW Std Deviation 46.0 H RDW Coeff of Peggy 14.0 Plt Count 181 MPV 11.0 Immature Gran % (Auto) 2.800 H Neut % (Auto) 86.6 H Lymph % (Auto) 5.8 L [place] % (Auto) 4.4 Eos % (Auto) 0.3 Baso % (Auto) 0.1 Absolute Neuts (auto) 11.2 H Absolute Lymphs (auto) 0.75 L Nucleated RBC % 0 Differential Comment SCANNED Sodium 133 L Potassium 5.0 Chloride 101 Carbon Dioxide 26.0 Anion Gap 6 BUN 44 H Creatinine 2.56 H Estim Creat Clear Calc 31.34 Est GFR (MDRD) Af Amer 31 L Est GFR (MDRD) Non-Af 26 L BUN/Creatinine Ratio 17.2 Glucose 271 H Calcium 8.9 Magnesium 2.2 B-Natriuretic Peptide 468.7 H ABG Data ABG results: ABG 08/14/23 00:08 Specimen Type ART Sample Site R Radial pH 7.37 Bicarbonate Actual 22.5 Total CO2 24 Base Excess -3 L O2 Saturation 92 L O2 % 5.0 ABG pCO2 38.9 ABG pO2 64 L Zachary Test Positive O2 Delivery Device Cannula Vent Mode Not entered Radiography Diagnostic Testing: Clinical Impression(s) from Imaging Studies Chest CT 08/14/23 00:12 IMPRESSION: Extensive consolidation right lower lobe and patchy airspace disease right upper lobe, with small right pleural effusion, most consistent with pneumonia. Masslike area in the right lower lobe is likely more confluent pneumonia. Recommend CT chest follow-up in 4-6 weeks after treatment to confirm resolution and rule out mass. Electronically Signed: Estefania Stern MD at 2:34 EDT Reading Location ID and State: [facility] / [place] Tel , Service support , Management Discussion w/another healthcare provider: Hospitalist Discharge Plan Dx/Rx/DC Orders Clinical Impression: Acute on chronic hypoxic respiratory failure, Chronic kidney disease, Congestive heart failure, Pneumonia, COPD (chronic obstructive pulmonary disease) Disposition Disposition: Acute Care Hospital [facility] Discharge Date/Time: 08/14/23 03:58
[2023-08-14] MEDS: Piperacil/Tazobactam 3.375 GM in 0.9% Normal Saline (50mL MB+) 50 ML IV ×3 (03:01→23:46)
[2023-08-14] MEDS: 0.9% Normal Saline (1000mL) 1,000 ML 30 ML IV (04:30)
[2023-08-14] MEDS: Vancomycin HCl 1,750 MG in 0.9% Normal Saline (500mL Bag) 500 ML 250 MG IV (04:30)
[2023-08-14] MEDS: Levothyroxine 100 MCG Tablet PO (04:31)
[2023-08-14] MEDS: Albumin Human 25% (50 mL) 12.5 GM/50 ML IV.SOLN IV (04:49)
[2023-08-14 06:16] LABS: Basophil# 0.05 X10^3/uL; Hematocrit 38.6 % (40-54); Hemoglobin 12.6 g/dL (13.0-16.5); Mean Corp Hgb Conc 32.6 g/dL (32-36); Mean Corpuscular Hgb 29.6 pg (27.0-32.0); Mean Corpuscular Volume 90.6 fL (80-94); Mean Platelet Vol. 10.5 fl (6.2-12.0); Monocyte# 0.59 X10^3/uL; NRBC Flagged by Analyzer 0 % (0-5); POSITIVE DIFFERENTIAL YES; POSITIVE MORPHOLOGY YES; Platelet Count 164 K/mm3 (150-450); RBC Distribution Width CV 13.9 % (11.6-14.6); RBC Distribution Width SD 45.9 fl (35.1-43.9); Red Blood Count 4.26 M/mm3 (4.6-6.2); White Blood Count 12.8 K/mm3 (4.4-11.0)
[2023-08-14 06:33] LABS: Bedside Glucose 319 mg/dL (74-106)
[2023-08-14 06:43] LABS: Differential Indicated SCAN CRITERIA MET
[2023-08-14 06:50] LABS: ALB/GLOB Ratio 0.6 RATIO (0.9-2.4); AST(SGOT) 14 U/L (15-37); Alanine Aminotransfer ALT/SGPT 15 U/L (16-61); Albumin, Serum 2.1 g/dL (3.2-5.0); Alkaline Phosphatase 48 U/L (45-117); Anion Gap 10 (5-15); BUN 45 mg/dL (7-18); BUN/Creat Ratio 17.9 RATIO (10-20); Calcium,Total 8.5 mg/dL (8.5-10.1); Chloride 100 mmol/L (98-107); Creatinine, Serum 2.52 mg/dL (0.70-1.30); EST Glomerular Filtration Rate 27 mL/min (>60); Est Glom Filt Rate - Afr Amer 32 mL/min (>60); Estimated Creatinine Clearance 31.36 ml/min; Globulin 3.5 g/dL (2.2-4.2); Glucose 336 mg/dL (74-106); Magnesium 1.9 mg/dL (1.6-2.6); Phosphorus 3.4 mg/dL (2.5-4.9); Potassium 4.7 mmol/L (3.5-5.1); Protein, Total 5.6 g/dL (6.4-8.2); Sodium Level 132 mmol/L (136-145); Thyroid Stim Hormone (TSH) 0.48 uIU/mL (0.358-3.74)
[2023-08-14 08:00] LABS: BNP,B-Type NATRIURETIC PEPTIDE 512.6 pg/mL (0-100)
[2023-08-14 08:09] LABS: Lymphocyte 8 % (19-41); Metamyelocyte 2 % (0-1); Monocyte 5 % (0-10); Myelocyte 1 % (0-0); Neutrophil-Band 23 % (0-5); Neutrophil-Segmented 60 % (47-70); Other WBC Type 1 %; Total Cells Counted 100 (MANUAL DIFF)
[2023-08-14 08:10] LABS: Platelet Estimate ADEQUATE (ADEQ); Red Cell Morphology NORM C+C NORMAL (NORM C&C); Scan Smear per Review Criteria MANUAL DIFF
[2023-08-14 08:13] LABS: Absolute Neutrophil Count 10.6 X10^3/uL (2.0-7.7); Neutrophil # 10.59 X10^3/uL (2.7-7.7)
[2023-08-14 08:14] LABS: Absolute Lymphocyte Count 1.02 X10^3/uL (0.83-4.51); Lymphocyte # 1.02 X10^3/ul (0.83-4.51)
--- NOTE | 2023-08-14 08:46 | PN.HOSP_ITS ---
Reason for Visit Reason for Visit: Diagnoses Viral infection, unspecified (08/14/23) Heart failure, unspecified (08/14/23) Pneumonia, unspecified organism (08/14/23) Other abnormalities of breathing (08/14/23) Weakness (08/14/23) Adult failure to thrive (08/14/23) Subjective Subjective Feeling somewhat better but still pretty wiped out. Stated has been sick for weeks. Cause been dry for the most part but did cough up some brown phlegm. Objective Data Objective Data Vital Signs: Vital Signs Temp Pulse Resp BP Pulse Ox O2 Del Method O2 Flow Rate 36.4 C L 75 19 H 128/53 H 93 High Flow 7 08/14/23 04:59 08/14/23 04:59 08/14/23 04:59 08/14/23 04:59 08/14/23 05:33 08/14/23 05:33 08/14/23 05:33 Oxygen Flow Rate (L/min) 7 Oxygen Delivery Method High Flow Weight: 109.4 kg Body Mass Index (BMI) 32.7 Intake & Output: Intake and Output for Last 24 Hours 08/12/23 08/13/23 08/14/23 23:59 23:59 23:59 Intake Total 635 / 635 Balance 635 / 635 Lab / Micro Data 08/14/23 05:14 08/14/23 05:14 Labs: Laboratory Results - last 24 hr 08/13/23 23:57: WBC 12.9 H, RBC 5.00, Hgb 14.8, Hct 45.2, MCV 90.4, MCH 29.6, MCHC 32.7, RDW Std Deviation 46.0 H, RDW Coeff of Peggy 14.0, Plt Count 181, MPV 11.0, Immature Gran % (Auto) 2.800 H, Neut % (Auto) 86.6 H, Lymph % (Auto) 5.8 L , [place] % (Auto) 4.4, Eos % (Auto) 0.3, Baso % (Auto) 0.1, Absolute Neuts (auto) 11.2 H, Absolute Lymphs (auto) 0.75 L, Nucleated RBC % 0, Differential Comment SCANNED, Sodium 133 L, Potassium 5.0, Chloride 101, Carbon Dioxide 26.0, Anion Gap 6, BUN 44 H, Creatinine 2.56 H, Estim Creat Clear Calc 31.34, Est GFR (MDRD) Af Amer 31 L, Est GFR (MDRD) Non-Af 26 L, BUN/Creatinine Ratio 17.2, Glucose 271 H, Calcium 8.9, Magnesium 2.2, B-Natriuretic Peptide 468.7 H 08/14/23 05:14: WBC 12.8 H, RBC 4.26 L, Hgb 12.6 L, Hct 38.6 L, MCV 90.6, MCH 29.6, MCHC 32.6, RDW Std Deviation 45.9 H, RDW Coeff of Peggy 13.9, Plt Count 164, MPV 10.5, Immature Gran % (Auto) STAFF RESEARCH ASSOCIATE, Neut % (Auto) STAFF RESEARCH ASSOCIATE, Lymph % (Auto) STAFF RESEARCH ASSOCIATE, [place] % (Auto) STAFF RESEARCH ASSOCIATE, Eos % (Auto) STAFF RESEARCH ASSOCIATE, Baso % (Auto) STAFF RESEARCH ASSOCIATE, Absolute Neuts (auto) 10.6 H, Absolute Lymphs (auto) 1.02, Total Counted 100, Neutrophils % (Manual) 60, Band Neutrophils % 23 H, Lymphocytes % (Manual) 8 L, Monocytes % (Manual) 5, Me tamyelocytes % 2 H, Myelocytes % 1 H, Other Cells % 1, Nucleated RBC % 0, Diff Path Review May foll, Platelet Estimate ADEQUATE, RBC Morphology NORM C+C, Sodium 132 L, Potassium 4.7, Chloride 100, Carbon Dioxide 22.0, Anion Gap 10, BUN 45 H, Creatinine 2.52 H, Estim Creat Clear Calc 31.36, Est GFR (MDRD) Af Amer 32 L, Est GFR (MDRD) Non-Af 27 L, BUN/Creatinine Ratio 17.9, Glucose 336 H, Calcium 8.5, Phosphorus 3.4, Magnesium 1.9, Total Bilirubin 0.70, AST 14 L, ALT 15 L, Alkaline Phosphatase 48, B-Natriuretic Peptide 512.6 H, Total Protein 5.6 L, Albumin 2.1 L, Globulin 3.5, Albumin/Globulin Ratio 0.6 L, TSH 0.48 08/14/23 05:53: POC Glucose 319 H Micro: Microbiology 08/14/23 01:05 Mucosa - Nose SARS-CoV-2, Influenza & RSV (PCR) - Final ABG Data ABG results: ABG 08/14/23 00:08 Specimen Type ART Sample Site R Radial pH 7.37 Bicarbonate Actual 22.5 Total CO2 24 Base Excess -3 L O2 Saturation 92 L O2 % 5.0 ABG pCO2 38.9 ABG pO2 64 L Zachary Test Positive O2 Delivery Device Cannula Vent Mode Not entered Radiography Diagnostic Testing: Radiology Impression Chest CT 08/14/23 00:12 IMPRESSION: Extensive consolidation right lower lobe and patchy airspace disease right upper lobe, with small right pleural effusion, most consistent with pneumonia. Masslike area in the right lower lobe is likely more confluent pneumonia. Recommend CT chest follow-up in 4-6 weeks after treatment to confirm resolution and rule out mass. Electronically Signed: Estefania Stern MD at 2:34 EDT , Physical Exam Const alert and no apparent distress Constitutional Narrative: Up in chair. No respiratory distress. No conversational dyspnea. Did cough up some brown phlegm. Resp normal respiratory effort and no retractions Resp Narrative: Crackles and diminished breath sounds in right lower lobe. Cardio regular rate, regular rhythm, S1 normal heart sound and S2 normal heart sound Extremity normal to inspection and full ROM Neuro Sensorium / Orientation: awake and alert Psych affect normal Assessment & Plan Assessment/Plan (1) Pneumonia: QUALIFIERS: Laterality: right Lung location: unspecified part of lung Pneumonia type: due to unspecified organism Qualified Code(s): J18.9 - Pneumonia, unspecified organism (2) Acute CHF (congestive heart failure): QUALIFIERS: Heart failure type: unspecified Qualified Code(s): I50.9 - Heart failure, unspecified (3) Acute respiratory insufficiency: (4) Viral syndrome: (5) Adult failure to thrive: (6) Weakness: PLAN: Plan Suspected gram negative pneumonia * RLL pneumonia with likely consolidation and pleural effusion. * Continue abx with pip/tazo and add linezolid * COVID 19, influenza and RSV negative. * Check sputum culture. Check antigens for Streptococcus Legionella. * Pulmonary toilet. Add guaifenesin. Pep therapy encouraged. * Consider vest therapy. If no improvement or certainly gets worse, consult pulmonary to see if bronchoscopy would indicated. Acute hypoxic respiratory failure * Present on admission, currently improving. * secondary to pneumonia * patient had low pO2 on ABG. Respiratory rate was up to 34 at 1 point. 84 this document I suspect was an accurate. Secondary to pneumonia. Currently on high flow oxygen. Wean as tolerated. Diabetes mellitus type 1 * A1c 10.2 * Suboptimal control * Continue with glargine 63 units at night and then lispro 50 units with meals. Add SSI. * Unclear what and if changes would be necessary. Monitor Chronic conditions * History of PAF: Continue apixaban and carvedilol * Essential hypertension -stable * Hyperlipidemia -continue statin. * Hypothyroidism - Continue levothyroxine Synthroid. TSH within normal limits. * Obesity class II: Complicates management and long-term care. * CAD; s/p inferoposterior [place] (2012) -stable * History of ischemic cardiomyopathy -monitor closely * History of VF cardiac arrest; s/p PPM/AICD (2013) * History of CVA -anticoagulated on apixaban VTE prophylaxis -not indicated as patient is anticoagulated Charges/Coding Procedures Hospitalists Procedures: Other Procedure - See Report (Nonbillable rounding as patient was admitted after midnight.)
[2023-08-14] MEDS: Insulin Lispro 100 UNIT/ML INSULN.PEN 50 UNIT SC ×3 (08:48→16:24)
[2023-08-14] MEDS: Ascorbic Acid 500 MG Tablet 1000 MG PO ×2 (08:49→16:26)
[2023-08-14] MEDS: Pyridoxine HCl 50 MG Tablet PO ×3 (08:49→16:26)
[2023-08-14] MEDS: Linezolid 600 MG 600 MG/300 ML BAG 200 MG IV ×2 (08:50→21:30)
[2023-08-14] MEDS: Famotidine 200 MG/20 ML MDV 20 MG in 0.9% Normal Saline (Pres. free 8 ML 300 MG IV (10:09)
[2023-08-14 10:10] LABS: Hemoglobin A1c 10.2 % (3.8-5.6)
[2023-08-14] MEDS: Carvedilol 25 MG Tablet PO ×2 (10:10→16:26)
[2023-08-14] MEDS: guaiFENesin 600 MG Tablet PO ×2 (10:10→21:30)
[2023-08-14 10:41] LABS: Bedside Glucose 448 mg/dL (74-106)
--- NOTE | 2023-08-14 11:15 | CASEMGMT ---
KOSTAS NEELY Face to Face with patient for initial transition planning/care coordination assessment. RN CM introduced self and role at [facility]. Patient lying in bed, alert and oriented. Patient willing to participate in assessment and is able to answer all questions appropriately. Care providers, pharmacy, and demographics verified. PCP: Bernardo Specialists: none Preferred Pharmacy: [facility] Insurance: [employer] [facility] Prescription Benefit: yes Living Will/HPOA: none LNOK: son, significant other Living Arrangements: Patient lives with significant other in a single story home with 3-4 steps and railing to enter the home. Patient states he is independent at home. Transportation: self, significant other DME/HHC: Patient has shower chair, cane, walker, and glucometer with supplies at home. Will monitor for home oxygen, prefers [employer]. No previous HHC or SNF Patient wishes to discharge home, will monitor progress with therapy for possible HHC vs SNF. Patient states he has no further needs or concerns at this time. CM to follow for discharge planning needs that may arise. Disposition Plan: TBD, anticipate HHC vs SNF pending progress with therapy, CM to follow Payal COUCH, RN, CM
[2023-08-14] MEDS: APIXABAN 5 MG TABLET PO ×2 (12:30→21:30)
[2023-08-14] MEDS: Furosemide 40 MG/4 ML Vial IV (12:31)
[2023-08-14] MEDS: Clopidogrel Bisulfate 75 MG Tablet PO (12:31)
[2023-08-14] MEDS: Lactobacillis Acidophilus 2 CAP PO (12:32)
[2023-08-14] MEDS: Zinc Sulfate 50 mg zinc (220 mg) ORAL capsule PO (12:32)
[2023-08-14] MEDS: Cholecalciferol (Vit D3) 125 MCG CAPSULE (5,000 UNITS) PO (12:32)
[2023-08-14] MEDS: Atorvastatin Calcium 40 MG Tablet PO (12:32)
[2023-08-14 12:56] LABS: Bedside Glucose 362 mg/dL (74-106)
--- NOTE | 2023-08-14 14:31 | CASEMGMT ---
Discharge Planning A list of?HH providers including quality and resource use data and consistent with the patient's preferred geographic region, medical needs, and insurance network was created in [employer] Guide.? This list was provided to the RN CHIN. Oralia Copeland, Discharge Planning Asst.
--- NOTE | 2023-08-14 15:13 | CASEMGMT ---
RN CM reviewed progress with therapy. Patient ambulated 130 contact guard. RN CM in to discuss HHC at discharge and list provided to patient. Patient to review list and provide preferences. CM will continue to follow this patient and plan for a safe discharge.
[2023-08-14] MEDS: Insulin Lispro 100 UNIT/ML INSULN.PEN SC (16:25)
[2023-08-14 16:44] LABS: Bedside Glucose 395 mg/dL (74-106)
[2023-08-14 21:22] LABS: Bedside Glucose 412 mg/dL (74-106)
[2023-08-14] MEDS: Insulin Glargine-YFGN 100 UNIT/ML Pen 63 UNIT SC (21:28)
[2023-08-14] MEDS: 0.9% Saline Lock 10 ML Syringe IV (21:30)
[2023-08-14] MEDS: Magnesium Chloride 64 MG Delay Rel.Tablet 128 MG PO (21:30)
[2023-08-15] VITALS (7 sets, daily range): BP systolic 119–156; BP diastolic 74–85; PULSE 64–94; RESP 18; TEMP 36–36.6; O2SAT 91–98; BMI 33.3
[2023-08-15] MEDS: Piperacil/Tazobactam 3.375 GM in 0.9% Normal Saline (50mL MB+) 50 ML IV ×3 (05:02→20:56)
[2023-08-15] MEDS: 0.9% Saline Lock 10 ML Syringe IV ×2 (05:03→09:12)
[2023-08-15] MEDS: Levothyroxine 100 MCG Tablet PO (05:03)
[2023-08-15 08:06] LABS: Absolute Neutrophil Count 17.4 X10^3/uL (2.0-7.7); Basophil# 0.12 X10^3/uL; Basophil% 0.6 % (0-1); Hematocrit 38.8 % (40-54); Hemoglobin 12.8 g/dL (13.0-16.5); Lymphocyte % 3.7 % (19-41); Mean Corpuscular Hgb 29.4 pg (27.0-32.0); Mean Platelet Vol. 10.5 fl (6.2-12.0); Monocyte# 0.73 X10^3/uL; Monocyte% 3.8 % (0-10); NRBC Flagged by Analyzer 0 % (0-5); Neutrophil % 91.2 % (47-70); POSITIVE MORPHOLOGY YES; Platelet Count 169 K/mm3 (150-450); RBC Distribution Width CV 13.7 % (11.6-14.6); RBC Distribution Width SD 44.8 fl (35.1-43.9); Red Blood Count 4.36 M/mm3 (4.6-6.2); White Blood Count 19.1 K/mm3 (4.4-11.0)
--- NOTE | 2023-08-15 08:17 | PN.HOSP_ITS ---
Reason for Visit Reason for Visit: Diagnoses Viral infection, unspecified (08/14/23) Heart failure, unspecified (08/14/23) Pneumonia, unspecified organism (08/14/23) Other abnormalities of breathing (08/14/23) Weakness (08/14/23) Adult failure to thrive (08/14/23) Subjective Subjective Still coughing up phlegm. Objective Data Objective Data Vital Signs: Vital Signs Temp Pulse Resp BP Pulse Ox O2 Del Method O2 Flow Rate 36.0 C L 64 18 156/74 H 94 Nasal Cannula 3 08/15/23 03:10 08/15/23 03:10 08/15/23 03:10 08/15/23 03:10 08/15/23 03:10 08/15/23 07:30 08/15/23 07:30 Oxygen Flow Rate (L/min) 3 Oxygen Delivery Method Nasal Cannula Weight: 111.6 kg Body Mass Index (BMI) 33.3 Intake & Output: Intake and Output for Last 24 Hours 08/13/23 08/14/23 08/15/23 23:59 23:59 23:59 Intake Total 2768.5 / 2768.5 383.5 / 383.5 Balance 2768.5 / 2768.5 383.5 / 383.5 Lab / Micro Data 08/15/23 07:06 08/15/23 07:06 Labs: Laboratory Results - last 24 hr 08/14/23 05:14: Hemoglobin A1c 10.2 H 08/14/23 10:05: POC Glucose 448 H 08/14/23 12:38: POC Glucose 362 H 08/14/23 16:22: POC Glucose 395 H 08/14/23 21:02: POC Glucose 412 H Micro: Microbiology 08/15/23 03:31 Urine, Clean Catch Legionella Antigen - Final 08/15/23 03:31 Urine, Clean Catch Streptococcus pneumoniae Antigen (M - Final 08/14/23 01:05 Mucosa - Nose SARS-CoV-2, Influenza & RSV (PCR) - Final Physical Exam Const alert and no apparent distress HEENT head/scalp atraumatic and moist oral mucous membranes Resp normal respiratory effort, no retractions, no use of accessory muscles and clear to auscultation bilaterally Cardio regular rate, regular rhythm, S1 normal heart sound and S2 normal heart sound GI normal to inspection, nondistended, normoactive bowel sounds, soft to palpation, non-tender and non-distended Extremity normal to inspection Neuro Sensorium / Orientation: awake and oriented to person Assessment & Plan Assessment/Plan (1) Pneumonia: QUALIFIERS: Laterality: right Lung location: unspecified part of lung Pneumonia type: due to unspecified organism Qualified Code(s): J18.9 - Pneumonia, unspecified organism (2) Acute CHF (congestive heart failure): QUALIFIERS: Heart failure type: unspecified Qualified Code(s): I50.9 - Heart failure, unspecified (3) Acute respiratory insufficiency: (4) Viral syndrome: (5) Adult failure to thrive: (6) Weakness: PLAN: Plan Suspected gram negative pneumonia * RLL pneumonia with likely consolidation and pleural effusion. * Continue abx with pip/tazo and add linezolid * COVID 19, influenza and RSV negative. * Check sputum culture. Antigens for Streptococcus Legionella negative * Pulmonary toilet. Guaifenesin. Pep therapy * Add vest therapy. If no improvement or certainly gets worse, consult pulmonary to see if bronchoscopy would indicated. Acute hypoxic respiratory failure * Present on admission, currently improving. * secondary to pneumonia * patient had low pO2 on ABG. Respiratory rate was up to 34 at 1 point. 84 this document I suspect was an accurate. Secondary to pneumonia. Currently on high flow oxygen. Wean as tolerated. Diabetes mellitus type 1 * A1c 10.2 * Uncontrolled * Change glargine from 63 units at night to 35 units BID (since pt received 63 units last night, will start this evening, but will given 20 units this AM). Continue lispro 50 units with meals. On SSI. * Unclear what and if changes would be necessary. Monitor Chronic conditions * History of PAF: Continue apixaban and carvedilol * Essential hypertension -stable * Hyperlipidemia -continue statin. * Hypothyroidism - Continue levothyroxine Synthroid. TSH within normal limits. * Obesity class II: Complicates management and long-term care. * CAD; s/p inferoposterior [place] (2012) -stable * History of ischemic cardiomyopathy -monitor closely * History of VF cardiac arrest; s/p PPM/AICD (2012) * History of CVA -anticoagulated on apixaban VTE prophylaxis -not indicated as patient is anticoagulated Charges/Coding Visit Charges Inpatient E&M: 79376 Subs Hosp L2
[2023-08-15 08:45] LABS: ALB/GLOB Ratio 0.5 RATIO (0.9-2.4); AST(SGOT) 18 U/L (15-37); Alanine Aminotransfer ALT/SGPT 15 U/L (16-61); Albumin, Serum 1.9 g/dL (3.2-5.0); Alkaline Phosphatase 55 U/L (45-117); Anion Gap 6 (5-15); BUN 52 mg/dL (7-18); BUN/Creat Ratio 21.5 RATIO (10-20); Calcium,Total 8.6 mg/dL (8.5-10.1); Chloride 103 mmol/L (98-107); Creatinine, Serum 2.42 mg/dL (0.70-1.30); EST Glomerular Filtration Rate 28 mL/min (>60); Est Glom Filt Rate - Afr Amer 34 mL/min (>60); Estimated Creatinine Clearance 32.98 ml/min; Globulin 4.1 g/dL (2.2-4.2); Glucose 185 mg/dL (74-106); Potassium 4.2 mmol/L (3.5-5.1); Sodium Level 132 mmol/L (136-145)
[2023-08-15] MEDS: Ascorbic Acid 500 MG Tablet 1000 MG PO ×2 (08:52→16:31)
[2023-08-15] MEDS: Pyridoxine HCl 50 MG Tablet PO ×3 (08:52→16:31)
[2023-08-15 08:58] LABS: Differential Indicated SCAN CRITERIA MET
[2023-08-15] MEDS: Insulin Lispro 100 UNIT/ML INSULN.PEN 50 UNIT SC ×3 (08:59→17:02)
[2023-08-15] MEDS: Insulin Lispro 100 UNIT/ML INSULN.PEN SC ×3 (09:00→17:03)
[2023-08-15] MEDS: Zinc Sulfate 50 mg zinc (220 mg) ORAL capsule PO (09:01)
[2023-08-15] MEDS: guaiFENesin 600 MG Tablet PO ×2 (09:01→20:55)
[2023-08-15] MEDS: Atorvastatin Calcium 40 MG Tablet PO (09:01)
[2023-08-15] MEDS: Clopidogrel Bisulfate 75 MG Tablet PO (09:01)
[2023-08-15] MEDS: APIXABAN 5 MG TABLET PO ×2 (09:01→20:56)
[2023-08-15] MEDS: Insulin Glargine-YFGN 100 UNIT/ML Pen 20 UNIT SC (09:02)
[2023-08-15] MEDS: Furosemide 40 MG/4 ML Vial IV (09:11)
[2023-08-15] MEDS: Linezolid 600 MG 600 MG/300 ML BAG 200 MG IV ×2 (09:13→20:56)
[2023-08-15] MEDS: Famotidine 200 MG/20 ML MDV 20 MG in 0.9% Normal Saline (Pres. free 8 ML 300 MG IV (09:13)
[2023-08-15] MEDS: Lactobacillis Acidophilus 2 CAP PO ×2 (09:16→20:56)
[2023-08-15] MEDS: Carvedilol 25 MG Tablet PO ×2 (09:16→16:31)
[2023-08-15] MEDS: Cholecalciferol (Vit D3) 125 MCG CAPSULE (5,000 UNITS) PO (09:16)
[2023-08-15 10:00] LABS: Differential Comment SCANNED
[2023-08-15 11:52] LABS: Bedside Glucose 286 mg/dL (74-106)
[2023-08-15 16:54] LABS: Bedside Glucose 226 mg/dL (74-106)
[2023-08-15] MEDS: 0.9% Normal Saline (1000mL) 1,000 ML 30 ML IV (18:51)
[2023-08-15] MEDS: Magnesium Chloride 64 MG Delay Rel.Tablet 128 MG PO (20:55)
[2023-08-15] MEDS: Insulin Glargine-YFGN 100 UNIT/ML Pen 35 UNIT SC (20:57)
[2023-08-15 21:46] LABS: Bedside Glucose 208 mg/dL (74-106)
[2023-08-16] VITALS (8 sets, daily range): BP systolic 135–149; BP diastolic 76–100; PULSE 76–96; RESP 16–24; TEMP 36.4–36.6; O2SAT 95–97; BMI 33.6
[2023-08-16] MEDS: Levothyroxine 100 MCG Tablet PO (05:46)
[2023-08-16] MEDS: Piperacil/Tazobactam 3.375 GM in 0.9% Normal Saline (50mL MB+) 50 ML IV ×3 (05:46→21:15)
[2023-08-16 06:06] LABS: Absolute Lymphocyte Count 0.53 X10^3/uL (0.83-4.51); Absolute Neutrophil Count 15.4 X10^3/uL (2.0-7.7); Basophil# 0.04 X10^3/uL; Basophil% 0.2 % (0-1); Hemoglobin 12.4 g/dL (13.0-16.5); Lymphocyte # 0.53 X10^3/ul (0.83-4.51); Lymphocyte % 3.2 % (19-41); Mean Corp Hgb Conc 32.6 g/dL (32-36); Mean Corpuscular Hgb 29.1 pg (27.0-32.0); Mean Corpuscular Volume 89.2 fL (80-94); Mean Platelet Vol. 10.6 fl (6.2-12.0); Monocyte# 0.52 X10^3/uL; Monocyte% 3.1 % (0-10); NRBC Flagged by Analyzer 0.1 % (0-5); Neutrophil % 92.4 % (47-70); POSITIVE DIFFERENTIAL YES; Platelet Count 197 K/mm3 (150-450); RBC Distribution Width CV 13.9 % (11.6-14.6); RBC Distribution Width SD 45.2 fl (35.1-43.9); Red Blood Count 4.26 M/mm3 (4.6-6.2); White Blood Count 16.7 K/mm3 (4.4-11.0)
[2023-08-16 06:27] LABS: Anion Gap 9 (5-15); BUN 60 mg/dL (7-18); BUN/Creat Ratio 24.6 RATIO (10-20); Calcium,Total 8.5 mg/dL (8.5-10.1); Chloride 103 mmol/L (98-107); Creatinine, Serum 2.44 mg/dL (0.70-1.30); EST Glomerular Filtration Rate 28 mL/min (>60); Est Glom Filt Rate - Afr Amer 33 mL/min (>60); Glucose 149 mg/dL (74-106); Sodium Level 135 mmol/L (136-145)
--- NOTE | 2023-08-16 08:21 | PN.HOSP_ITS ---
Reason for Visit Reason for Visit: Diagnoses Viral infection, unspecified (08/14/23) Heart failure, unspecified (08/14/23) Pneumonia, unspecified organism (08/14/23) Other abnormalities of breathing (08/14/23) Weakness (08/14/23) Adult failure to thrive (08/14/23) Objective Data Objective Data Vital Signs: Vital Signs Temp Pulse Resp BP Pulse Ox O2 Del Method O2 Flow Rate 97.6 F L 88 20 H 148/100 H 95 Nasal Cannula 2 08/16/23 04:02 08/16/23 04:02 08/16/23 04:02 08/16/23 04:02 08/16/23 04:02 08/16/23 04:02 08/16/23 04:02 Oxygen Flow Rate (L/min) 2 Oxygen Delivery Method Nasal Cannula Weight: 247 lb 12.793 oz Body Mass Index (BMI) 33.6 Intake & Output: Intake and Output for Last 24 Hours 08/14/23 08/15/23 08/16/23 23:59 23:59 23:59 Intake Total 2768.5 / 2768.5 1337.0 / 1577.0 410 / 410 Balance 2768.5 / 2768.5 1337.0 / 1577.0 410 / 410 Lab / Micro Data 08/16/23 05:33 08/16/23 05:33 Labs: Laboratory Results - last 24 hr 08/15/23 07:06: WBC 19.1 H, RBC 4.36 L, Hgb 12.8 L, Hct 38.8 L, MCV 89.0, MCH 29.4, MCHC 33.0, RDW Std Deviation 44.8 H, RDW Coeff of Peggy 13.7, Plt Count 169, MPV 10.5, Immature Gran % (Auto) 0.700, Neut % (Auto) 91.2 H, Lymph % (Auto) 3.7 L, [place] % (Auto) 3.8, Eos % (Auto) 0.0, Baso % (Auto) 0.6, Absolute Neuts (auto) 17.4 H, Absolute Lymphs (auto) 0.70 L, Nucleated RBC % 0, Differential Comment SCANNED, Sodium 132 L, Potassium 4.2, Chloride 103, Carbon Dioxide 23.0, Anion Gap 6, BUN 52 H, Creatinine 2.42 H, Estim Creat Clear Calc 32.98, Est GFR (MDRD) Af Amer 34 L, Est GFR (MDRD) Non-Af 28 L, BUN/Creatinine Ratio 21.5 H, Glucose 185 H, Calcium 8.6, Total Bilirubin 0.40, AST 18, ALT 15 L, Alkaline Phosphatase 55, Total Protein 6.0 L, Albumin 1.9 L, Globulin 4.1, Albumin/Globulin Ratio 0.5 L 08/15/23 11:26: POC Glucose 286 H 08/15/23 16:37: POC Glucose 226 H 08/15/23 20:54: POC Glucose 208 H 08/16/23 05:33: WBC 16.7 H, RBC 4.26 L, Hgb 12.4 L, Hct 38.0 L, MCV 89.2, MCH 29.1, MCHC 32.6, RDW Std Deviation 45.2 H, RDW Coeff of Peggy 13.9, Plt Count 197, MPV 10.6, Immature Gran % (Auto) 1.100 H, Neut % (Auto) 92.4 H, Lymph % (Auto) 3.2 L, [place] % (Auto) 3.1, Eos % (Auto) 0.0, Baso % (Auto) 0.2, Absolute Neuts (auto) 15.4 H, Absolute Lymphs (auto) 0.53 L, Nucleated RBC % 0.1, Sodium 135 L, Potassium 4.0, Chloride 103, Carbon Dioxide 23.0, Anion Gap 9, BUN 60 H, Creatinine 2.44 H, Estim Creat Clear Calc 32.70, Est GFR (MDRD) Af Amer 33 L, Est GFR (MDRD) Non-Af 28 L, BUN/Creatinine Ratio 24.6 H, Glucose 149 H, Calcium 8.5 Micro: Microbiology 08/15/23 03:31 Urine, Clean Catch Legionella Antigen - Final 08/15/23 03:31 Urine, Clean Catch Streptococcus pneumoniae Antigen (M - Final 08/14/23 01:05 Mucosa - Nose SARS-CoV-2, Influenza & RSV (PCR) - Final Physical Exam Narrative Seen and examined. Although hypoxia is improved but patient denies any improvement in shortness of breath/dyspnea. Dyspnea on mild exertion. On IV antibiotic for pneumonia. No fever. Complain of diarrhea 3-4 times even prior to admission. Physical exam General: Alert, Oriented x3, Cooperative. Obesity grade 1 BMI 33.6 kg/m? HEENT: Atraumatic, PERRLA, EOMI, Normocephalic Oral: Oral mucosa moist. No Gingival or Mucosal Lesions/ Ulcerations Neck: Supple, No JVD, Negative Carotid Bruits Chest wall/Lungs: Air entry diminished in bilateral lung bases. Mild lung base crepitation present Cardiovascular: AICD. Paced rhythm. Systolic murmur present. Abdomen: Bowel Sounds Present, Soft, Non Tender, Non-Distended : No dysuria. No renal angle tenderness. No suprapubic tenderness. Extremities: Mild subtle edema. Edema, Capillary Refill Less than 3 Seconds Skin: No rashes, No breakdown Musculoskeletal: No Tenderness to Palpation of Joints or Extremities. ROM restricted. Neurological: Cranial nerves II-XII grossly intact, DTR 2+/4. No acute focal neurological deficit. Psych/Mental Status: Normal Affect, Appropriate. Assessment & Plan Assessment/Plan (1) Pneumonia: QUALIFIERS: Laterality: right Lung location: unspecified part of lung Pneumonia type: due to unspecified organism Qualified Code(s): J18.9 - Pneumonia, unspecified organism (2) Acute CHF (congestive heart failure): QUALIFIERS: Heart failure type: unspecified Qualified Code(s): I50.9 - Heart failure, unspecified (3) Acute respiratory insufficiency: (4) Viral syndrome: (5) Adult failure to thrive: (6) Weakness: PLAN: Plan Acute multifocal, multilobular viral rhinovirus pneumonia with suspected secondary bacterial infection * RLL pneumonia with likely consolidation and pleural effusion. * Continue abx with pip/tazo and add linezolid * COVID 19, influenza and RSV negative. * Preliminary sputum culture does not show organisms but 2+ WBC. Antigens for Streptococcus Legionella negative * Pulmonary toilet. Guaifenesin. Pep therapy * Add vest therapy. If no improvement or certainly gets worse, consult pulmonary to see if bronchoscopy would indicated. 08/15: Patient is still has cough, not able to bring up phlegm. On incentive spirometry and chest physiotherapy. Pulmonary consulted as patient did not feel improvement in shortness of breath though hypoxia improved. Acute hypoxic respiratory failure * Present on admission, currently improving. * secondary to pneumonia * patient had low pO2 on ABG. Respiratory rate was up to 34 at 1 point. 84 this document I suspect was an accurate. Secondary to pneumonia. Currently on high flow oxygen. Wean as tolerated. 08/15 currently on 3 L of oxygen. Tachypnea has improved. Diabetes mellitus type 1 * A1c 10.2 * Uncontrolled * Change glargine from 63 units at night to 35 units BID (since pt received 63 u nits last night, will start this evening, but will given 20 units this AM). Continue lispro 50 units with meals. On SSI. * Glucose fasting 124. Premeal glucose is high in the range of 200 250. Chronic conditions * History of PAF: Continue apixaban and carvedilol * Essential hypertension -stable * Hyperlipidemia -continue statin. * Hypothyroidism - Continue levothyroxine Synthroid. TSH within normal limits. * Obesity class II: Complicates management and long-term care. * CAD; s/p inferoposterior [place] (2012) -stable * History of ischemic cardiomyopathy -monitor closely * History of VF cardiac arrest; s/p PPM/AICD (2012) * History of CVA -anticoagulated on apixaban VTE prophylaxis -not indicated as patient is anticoagulated Charges/Coding Visit Charges Inpatient E&M: 98861 Subs Hosp L2
--- NOTE | 2023-08-16 08:23 | CPS ---
ATTEMPTED TO DO PEP WITH PT BUT, PT SLEEPING. PEP THERAPY HELD
[2023-08-16] MEDS: Insulin Lispro 100 UNIT/ML INSULN.PEN 50 UNIT SC ×3 (08:40→18:09)
[2023-08-16] MEDS: Ascorbic Acid 500 MG Tablet 1000 MG PO ×2 (08:57→18:09)
[2023-08-16] MEDS: Carvedilol 25 MG Tablet PO ×2 (08:57→18:09)
[2023-08-16] MEDS: Pyridoxine HCl 50 MG Tablet PO ×3 (08:57→18:09)
[2023-08-16] MEDS: Insulin Glargine-YFGN 100 UNIT/ML Pen 35 UNIT SC ×2 (09:00→21:20)
[2023-08-16] MEDS: Clopidogrel Bisulfate 75 MG Tablet PO (09:01)
[2023-08-16] MEDS: Lactobacillis Acidophilus 2 CAP PO ×2 (09:01→21:16)
[2023-08-16 09:02] LABS: Bedside Glucose 124 mg/dL (74-106)
[2023-08-16] MEDS: Cholecalciferol (Vit D3) 125 MCG CAPSULE (5,000 UNITS) PO (09:02)
[2023-08-16] MEDS: APIXABAN 5 MG TABLET PO ×2 (09:02→21:15)
[2023-08-16] MEDS: guaiFENesin 600 MG Tablet PO ×2 (09:02→21:16)
[2023-08-16] MEDS: Zinc Sulfate 50 mg zinc (220 mg) ORAL capsule PO (09:02)
[2023-08-16] MEDS: Atorvastatin Calcium 40 MG Tablet PO (09:02)
[2023-08-16] MEDS: Famotidine 200 MG/20 ML MDV 20 MG in 0.9% Normal Saline (Pres. free 8 ML 300 MG IV (09:03)
[2023-08-16] MEDS: Furosemide 40 MG/4 ML Vial IV (09:03)
[2023-08-16] MEDS: Linezolid 600 MG 600 MG/300 ML BAG 200 MG IV ×2 (09:04→21:16)
--- NOTE | 2023-08-16 11:13 | CPS ---
Attempted to do Pep with pt but, therapy was held at this time. Pt was on phone.
[2023-08-16 11:28] LABS: Bedside Glucose 208 mg/dL (74-106)
--- NOTE | 2023-08-16 14:27 | PCMCONS.TICU ---
HPI Consult Data Date of Consult: 08/16/23 HPI Narrative Reason for Consultation: COPD exac HPI Narrative: 77M PMH including but not limited to COPD with extensive former smoking Hx (quit 2 years ago, 60 pack year Hx), HTN, DLD, hypothyroidism, obesity, DM with diabetic polyneuropathy, CAD s/p inferoposterior [place] (2012), history of CHF, history of ischemic cardiomyopathy, history of VF cardiac arrest; s/p PPM/AICD (2012), history of LV aneurysm, history of SVT, history of PAF; on Eliquis and Coreg (with listed intolerance to amiodarone), history of CVA, solitary kidney; with CKD stage III, history of COVID-19 and recent admission from August 06, 2023 to August 08, 2023 for Rhinovirus who was admitted on 08/13 with progressively worsening SOB. In the ER he was noted to have RLL PNA along with patchy airspace disease in the RUL plus with a small right pleural effusion consistent with multifocal pneumonia. He was admitted for treatment of PNA & COPD exacerbation but remains very dyspneic prompting pulmonary consult today. On my examination patient reports feeling better overall. Endorses chronic dyspnea worse with exertion and denies chronic cough. At present he feels nearly back to normal re: SOB and states he has an intermittently productive cough. No fevers/chills/chest pain/unintended weight loss. ROS + occasional choking/coughing while eating. He is on 2L for comfort but otherwise sats well on room air. He has no prior pulmonary evaluation and is not on home inhalers or oxygen. He also does not regularly have follow up with cardiology (patient is unsure why not). He has had multiple recent admissions for breathing issues. [facility] Medical History Atherosclerosis of coronary artery of [place] heart without angina pectoris Cardiac arrest with ventricular fibrillation (04/07/12) Chronic kidney disease Congestive heart failure (CHF) COPD (chronic obstructive pulmonary disease) Essential hypertension Former smoker History of diabetes mellitus History of hypertension Hyperlipidemia Hypothyroidism ICD (implantable cardioverter-defibrillator) in place Ischemic cardiomyopathy Left ventricular aneurysm Myocardial infarct Nicotine dependence Obesity 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) Pacemaker Solitary kidney Sustained ventricular tachycardia Ventricular fibrillation Home Medications fexofenadine-pseudoephedrine ER 180 mg-240 mg tablet,ext.release 24 hr 1 tab PO DAILY PRN ALLERGIES 01/20/16 [History Last Taken Unknown] acetaminophen 500 mg tablet (Tylenol Extra Strength) 1,000 mg (2 x 500 mg) PO Q6H PRN PAIN #20 tabs 10/22/21 [Rx Last Taken Unknown] insulin glargine 100 unit/mL (3 mL) subcutaneous pen 63 unit subcut QPM DIABETES 10/22/21 [History Last Taken Unknown] rosuvastatin 20 mg tablet 20 mg PO DAILY CHOLESTEROL #30 tabs 02/03/22 [Rx Last Taken Unknown] insulin lispro 100 unit/mL subcutaneous pen (Humalog KwikPen (U-100) Insulin) 50 unit subcut TIDAC DIABETES 07/20/22 [History Last Taken Unknown] magnesium oxide 400 mg PO QHS SUPPLEMENT 12/27/22 [History Last Taken Unknown] pyridoxine (vitamin B6) 50 mg tablet 50 mg PO TIDCM SUPPLEMENT 12/27/22 [History Last Taken Unknown] carvedilol 25 mg tablet 25 mg PO BID HEART #180 tabs 01/13/23 [Rx Last Taken Unknown] apixaban 5 mg tablet (Eliquis) 5 mg PO BID BLOOD THINNER #180 tabs 04/09/23 [Rx Last Taken Unknown] clopidogrel 75 mg tablet 75 mg PO DAILY BLOOD THINNER 08/06/23 [History Last Taken Unknown] cholecalciferol (vitamin D3) 125 mcg (5,000 unit) tablet 125 mcg PO DAILY SUPPLEMENT 08/12/23 [History Last Taken Unknown] furosemide 20 mg tablet (Lasix) 20 mg PO DAILY 7 days #7 tabs 08/12/23 [Rx Last Taken Unknown] levothyroxine 100 mcg tablet 100 mcg PO DAILY THYROID 08/12/23 [History Last Taken Unknown] Allergy/AdvReac Type Severity Reaction Status Date / Time amiodarone AdvReac Severe significant Verified 08/13/23 23:50 effect on lung function per PFT 09/19/17 Family History Father Colon cancer Mother No problems noted. Surgical History History of electrophysiologic study (10/21/12) History of implantable cardiac defibrillator (ICD) (04/12/12) History of left heart catheterization (01/21/16) Hx of colonoscopy Social History household members: significant other Smoking Status: Former smoker alcohol intake: never substance use type: does not use ROS ROS Narrative Full 12 point ROS completed and neg unless stated in HPI above Objective Data Objective Data Vital Signs: Vital Signs Last response Temperature 36.4 C L 08/16/23 09:30 Temperature Source Oral 08/16/23 09:30 Pulse Rate 96 08/16/23 09:30 Pulse Strength Normal (2+) 08/15/23 21:45 Respiratory Rate 18 08/16/23 09:30 Respiratory Effort Short of Breath 08/16/23 03:45 Respiratory Depth Normal 08/16/23 03:45 Respiratory Pattern Tachypnea 08/16/23 03:45 Blood Pressure 139/86 H 08/16/23 09:30 Blood Pressure Mean 103 08/16/23 09:30 Blood Pressure Source Monitor 08/16/23 09:30 Blood Pressure Position Supine 08/16/23 09:30 Blood Pressure Location Left Arm 08/16/23 09:30 Pulse Ox 97 08/16/23 12:26 Oxygen Delivery Method Nasal Cannula 08/16/23 10:00 Oxygen Flow Rate (L/min) 3 08/16/23 12:26 I&O: I&O Last 24 Hours 08/15/23 08/16/23 08/16/23 23:59 11:59 23:59 Intake Total 593.5 / 1577.0 770 / 770 Balance 593.5 / 1577.0 770 / 770 I&O: Total Stay 08/13/23 23:41 thru 08/16/23 10:34 Intake Total 4875.5 Balance 4875.5 Current Meds Ordered / Administered: Current meds ordered / Administered Generic Name Dose Route Start Last Admin Trade Name Freq PRN Reason Stop Dose Admin Acetaminophen 1,000 mg 08/14/23 04:11 Acetaminophen 500 Mg Tablet PO Q6H PRN Pain 1-10 or Fever Albuterol Sulfate 2.5 mg 08/14/23 04:11 Albuterol 2.5 Mg/3 Ml Vial.Neb. INHALATION Q2H PRN PRN SOB &/OR WHEEZING Apixaban 5 mg 08/14/23 10:00 08/16/23 09:02 Apixaban 5 Mg Tablet PO 5 mg BID CARMINE Administration Ascorbic Acid 1,000 mg 08/14/23 08:00 08/16/23 08:57 Ascorbic Acid 500 Mg Tablet PO 1,000 mg BID CARMINE Administration Atorvastatin Calcium 40 mg 08/14/23 10:00 08/16/23 09:02 Atorvastatin Calcium 40 Mg Tablet PO 40 mg DAILY CARMINE Administration Carvedilol 25 mg 08/14/23 10:00 08/16/23 08:57 Carvedilol 25 Mg Tablet PO 25 mg BIDCM CARMINE Administration Protocol Cholecalciferol 125 mcg 08/14/23 10:00 08/16/23 09:02 Cholecalciferol (Vit D3) 125 Mcg Capsule (5,000 Units) PO 125 mcg DAILY CARMINE Administration Clopidogrel Bisulfate 75 mg 08/14/23 10:00 08/16/23 09:01 Clopidogrel Bisulfate 75 Mg Tablet PO 75 mg DAILY CARMINE Administration Dextrose 0 gm 08/14/23 12:38 Dextrose 50%-Water 25 Gm/50 Ml Disp.Syrin IV X1 PRN Hypoglycemia Protocol Furosemide 40 mg 08/14/23 10:00 08/16/23 09:03 Furosemide 40 Mg/4 Ml Vial IV 40 mg DAILY CARMINE Administration Protocol Glucagon 1 mg 08/14/23 04:11 Glucagon 1 Mg/Ml Syringe IM X1 PRN HYPOGLYCEMIA Guaifenesin 600 mg 08/14/23 10:00 08/16/23 09:02 Guaifenesin 600 Mg Tablet PO 600 mg BID CARMINE Administration Piperacillin Sod/Tazobactam 50 mls @ 12.5 mls/hr 08/14/23 14:00 08/16/23 09:46 Sod 3.375 gm/ Sodium Chloride IV Infused Q8 [facility] Infusion Linezolid 600 mg in 300 mls @ 200 mls/hr 08/14/23 10:00 08/16/23 10:34 Zyvox 600mg IV Infused Q12 [facility] Infusion Famotidine 20 mg/ Sodium 10 mls @ 300 mls/hr 08/14/23 10:00 08/16/23 09:05 Chloride IV Infused Q24 [facility] Infusion Sodium Chloride 1,000 mls @ 30 mls/hr 08/14/23 04:11 08/16/23 02:51 IV Not Given .[id number] CARMINE Sodium Chloride 250 mls @ 15 mls/hr 08/14/23 04:15 IV .[id number] PRN Additional IVPB Infusion Sodium Chloride 250 mls @ 15 mls/hr 08/14/23 04:15 IV .[id number] PRN Saline Flush Insulin Glargine 35 unit 08/15/23 22:00 08/16/23 09:00 Insulin Glargine-Yfgn 100 Unit/Ml Pen SC 35 unit BID CARMINE Administration Insulin Human Lispro 50 unit 08/14/23 07:00 08/16/23 08:40 Insulin Lispro 100 Unit/Ml Insuln.Pen SC 50 u TIDAC [facility] Administration Insulin Human Lispro 0 unit 08/14/23 16:00 08/16/23 08:41 Insulin Lispro 100 Unit/Ml Insuln.Pen SC Not Given TIDAC [facility] Protocol Levothyroxine Sodium 100 mcg 08/14/23 06:00 08/16/23 05:46 Levothyroxine 100 Mcg Tablet PO 100 mcg DAILY@0600 CARMINE Administration Loratadine 10 mg 08/14/23 10:00 Loratadine 10 Mg Tablet PO DAILY PRN ALLERGIES Magnesium Chloride 128 mg 08/14/23 22:00 08/15/23 20:55 Magnesium Chloride 64 Mg Delay Rel.Tablet PO 128 mg QHS CARMINE Administration Melatonin 3 mg 08/14/23 04:11 Melatonin 3 Mg Tablet PO QHS PRN PRN INSOMNIA Methylprednisolone 40 mg 08/14/23 06:00 08/16/23 05:46 Methylprednisolone 40 Mg/Ml Vial IV 40 mg Q8 [facility]MINE Administration Ondansetron HCl 4 mg 08/14/23 04:11 Ondansetron 4 Mg/2 Ml Vial IV Q8H PRN PRN NAUSEA/VOMITING Pseudoephedrine HCl 60 mg 08/14/23 10:00 Pseudoephedrine 60 Mg Tablet PO 4X/DAY PRN ALLERGIES Pyridoxine HCl 50 mg 08/14/23 08:00 08/16/23 08:57 Pyridoxine Hcl 50 Mg Tablet PO 50 mg TIDCM CARMINE Administration Sodium Chloride 10 - 40 ml 08/14/23 04:15 08/15/23 09:12 0.9% Saline Lock 10 Ml Syringe IV 10 ml UD PRN Administration SALINE FLUSH Zinc Sulfate 50 mg 08/14/23 10:00 08/16/23 09:02 Zinc Sulfate 50 Mg Zinc (220 Mg) Oral Capsule PO 50 mg DAILY CARMINE Administration Lab / Micro Data 08/16/23 05:33 08/16/23 05:33 Labs: Laboratory Results - last 24 hr 08/15/23 16:37: POC Glucose 226 H 08/15/23 20:54: POC Glucose 208 H 08/16/23 05:33: WBC 16.7 H, RBC 4.26 L, Hgb 12.4 L, Hct 38.0 L, MCV 89.2, MCH 29.1, MCHC 32.6, RDW Std Deviation 45.2 H, RDW Coeff of Peggy 13.9, Plt Count 197, MPV 10.6, Immature Gran % (Auto) 1.100 H, Neut % (Auto) 92.4 H, Lymph % (Auto) 3.2 L, [place] % (Auto) 3.1, Eos % (Auto) 0.0, Baso % (Auto) 0.2, Absolute Neuts (auto) 15.4 H, Absolute Lymphs (auto) 0.53 L, Nucleated RBC % 0.1, Sodium 135 L, Potassium 4.0, Chloride 103, Carbon Dioxide 23.0, Anion Gap 9, BUN 60 H, Creatinine 2.44 H, Estim Creat Clear Calc 32.70, Est GFR (MDRD) Af Amer 33 L, Est GFR (MDRD) Non-Af 28 L, BUN/Creatinine Ratio 24.6 H, Glucose 149 H, Calcium 8.5 08/16/23 08:22: POC Glucose 124 H 08/16/23 11:09: POC Glucose 208 H Micro: Microbiology 08/13/23 23:57 Blood Culture (Wb) - Right Forearm Blood Culture - Preliminary No growth in 48 hours. 08/14/23 03:00 Blood Culture (Wb) - Right Forearm Blood Culture - Preliminary No growth in 48 hours. 08/15/23 12:33 Sputum, Expectorated/Coughed Gram Stain - Final Assessment and Plan . Assessment and plan: PE: General: Well developed, in no distress HEENT: anicteric Sclera, nl nose; supple neck, no masses Cardiovascular: S1/S2; No rubs, gallops; no displaced PM Respiratory: diminished; no crackles, wheezes, or rhonchi Abdominal: Non-tender; Non distended; hypoBS x 4; No Hepatosplenomegaly Extremities: Warm, well perfused; No clubbing, cyanosis; capillary refill < 2 sec Skin: intact, no rashes Neurological: no gross deficits appreciated A/P: #Acute on chronic respiratory failure #Multilobar PNA #AECOPD #CHF #CAD sp [place] #PAF on Eliquis #Ischemic cardiomyopathy sp AICD/PPM #Former heavy tobacco abuse #DM #Obesity #Hypertension -Pt is nearly at baseline per subjective report; he is also oxygenating well on room air but finds the flow improves his air hunger so remains on O2 for comfort -At this time I would add scheduled Duonebs to treat his underlying COPD & cont steroids but can wean quickly down to PO prednisone and complete a longer 2-3 week tapering course just due to recent recurrent admissions -Cont Zosyn, F/U Cx, can transition to oral meds to complete course as indicated -Given significant RLL involvement and Hx dysphagia would ask ST to eval further -Cont PT/OT given underlying deconditioning -On-going CHF management and diuresis given this is contributing as well He ultimately needs appropriate follow-up with outpatient pulmonary medicine to evaluate/treat underlying COPD, on discharge can go home on LAMA/LABA inhaler and I recommend referral to formal pulmonary rehab course within 3 weeks of discharge, he will also need F/U CT chest in 4-6 weeks to document clearance of PNA Will sign off but thank you for this consultation. The entirety of this encounter was done via Telemedicine
[2023-08-16] MEDS: Insulin Lispro 100 UNIT/ML INSULN.PEN SC ×2 (14:46→18:10)
[2023-08-16 16:32] LABS: Bedside Glucose 166 mg/dL (74-106)
[2023-08-16] MEDS: Ipratropium/Albuterol Sulfate 3 ML AMPUL.NEB INHALATION (19:50)
[2023-08-16] MEDS: Magnesium Chloride 64 MG Delay Rel.Tablet 128 MG PO (21:16)
[2023-08-16 21:53] LABS: Bedside Glucose 170 mg/dL (74-106)
[2023-08-17] MEDS: Dextrose 50%-Water 25 GM/50 ML DISP.SYRIN IV (03:01)
[2023-08-17 03:10] VITALS: BP 138/91; PULSE 80; RESP 18; TEMP 36.4; O2SAT 94
[2023-08-17 03:43] LABS: Bedside Glucose 136 mg/dL (74-106)
[2023-08-17 03:43] LABS: Bedside Glucose 49 mg/dL (74-106)
[2023-08-17 05:16] LABS: Bedside Glucose 94 mg/dL (74-106)
[2023-08-17] MEDS: 0.9% Normal Saline (1000mL) 1,000 ML 30 ML IV (05:18)
[2023-08-17] MEDS: Levothyroxine 100 MCG Tablet PO (05:26)
[2023-08-17] MEDS: Piperacil/Tazobactam 3.375 GM in 0.9% Normal Saline (50mL MB+) 50 ML IV ×3 (05:27→23:22)
[2023-08-17 05:59] VITALS: BMI 32.7
[2023-08-17 06:41] LABS: Absolute Lymphocyte Count 0.92 X10^3/uL (0.83-4.51); Absolute Neutrophil Count 14.7 X10^3/uL (2.0-7.7); Basophil# 0.08 X10^3/uL; Basophil% 0.5 % (0-1); Eosinophil# 0.06 X10^3/uL; Eosinophils% 0.4 % (0-5); Hematocrit 42.7 % (40-54); Hemoglobin 13.9 g/dL (13.0-16.5); Lymphocyte # 0.92 X10^3/ul (0.83-4.51); Lymphocyte % 5.5 % (19-41); Mean Corp Hgb Conc 32.6 g/dL (32-36); Mean Corpuscular Hgb 29.6 pg (27.0-32.0); Mean Platelet Vol. 10.3 fl (6.2-12.0); Monocyte# 0.47 X10^3/uL; Monocyte% 2.8 % (0-10); NRBC Flagged by Analyzer 0 % (0-5); Neutrophil % 87.9 % (47-70); Platelet Count 221 K/mm3 (150-450); RBC Distribution Width CV 14.2 % (11.6-14.6); RBC Distribution Width SD 47.6 fl (35.1-43.9); Red Blood Count 4.69 M/mm3 (4.6-6.2); White Blood Count 16.7 K/mm3 (4.4-11.0)
[2023-08-17 07:09] LABS: Anion Gap 9 (5-15); BUN 59 mg/dL (7-18); BUN/Creat Ratio 23.9 RATIO (10-20); Calcium,Total 8.6 mg/dL (8.5-10.1); Chloride 106 mmol/L (98-107); Creatinine, Serum 2.47 mg/dL (0.70-1.30); EST Glomerular Filtration Rate 27 mL/min (>60); Est Glom Filt Rate - Afr Amer 33 mL/min (>60); Glucose 96 mg/dL (74-106); Potassium 3.9 mmol/L (3.5-5.1); Sodium Level 136 mmol/L (136-145)
[2023-08-17 07:35] VITALS: PULSE 85; RESP 20; O2SAT 97
[2023-08-17] MEDS: Ipratropium/Albuterol Sulfate 3 ML AMPUL.NEB INHALATION ×2 (07:35→15:07)
[2023-08-17 08:42] VITALS: BP 148/83; PULSE 84; RESP 16; TEMP 36.4; O2SAT 97
[2023-08-17] MEDS: Linezolid 600 MG 600 MG/300 ML BAG 200 MG IV ×2 (09:02→23:06)
[2023-08-17] MEDS: Carvedilol 25 MG Tablet PO ×2 (09:03→18:52)
[2023-08-17] MEDS: Famotidine 200 MG/20 ML MDV 20 MG in 0.9% Normal Saline (Pres. free 8 ML 300 MG IV (09:03)
[2023-08-17] MEDS: Ascorbic Acid 500 MG Tablet 1000 MG PO ×2 (09:03→18:52)
[2023-08-17] MEDS: Cholecalciferol (Vit D3) 125 MCG CAPSULE (5,000 UNITS) PO (09:03)
[2023-08-17] MEDS: Pyridoxine HCl 50 MG Tablet PO ×3 (09:04→18:53)
[2023-08-17] MEDS: Atorvastatin Calcium 40 MG Tablet PO (09:04)
[2023-08-17] MEDS: Furosemide 40 MG/4 ML Vial IV (09:04)
[2023-08-17] MEDS: APIXABAN 5 MG TABLET PO ×2 (09:04→22:52)
[2023-08-17] MEDS: Lactobacillis Acidophilus 2 CAP PO ×2 (09:04→22:52)
[2023-08-17] MEDS: Clopidogrel Bisulfate 75 MG Tablet PO (09:04)
[2023-08-17 09:05] LABS: Bedside Glucose 115 mg/dL (74-106)
[2023-08-17] MEDS: Insulin Lispro 100 UNIT/ML INSULN.PEN SC ×2 (12:10→18:51)
[2023-08-17] MEDS: guaiFENesin/D-Methorphan TAB.SR.12H 2 TABLET PO ×2 (12:11→22:52)
[2023-08-17 12:15] LABS: Bedside Glucose 157 mg/dL (74-106)
[2023-08-17] MEDS: 0.9% Saline Lock 10 ML Syringe IV ×2 (13:53→22:57)
[2023-08-17 14:00] VITALS: BP 138/69; PULSE 88; RESP 18; TEMP 36.6; O2SAT 98
[2023-08-17 16:49] LABS: Bedside Glucose 363 mg/dL (74-106)
--- NOTE | 2023-08-17 17:19 | PCM.PN.HOSP ---
Reason for Visit Reason for Visit: Diagnoses Viral infection, unspecified (08/14/23) Heart failure, unspecified (08/14/23) Pneumonia, unspecified organism (08/14/23) Other abnormalities of breathing (08/14/23) Weakness (08/14/23) Adult failure to thrive (08/14/23) Objective Data Objective Data Vital Signs: Vital Signs Temp Pulse Resp BP Pulse Ox O2 Del Method O2 Flow Rate 97.8 F 88 18 138/69 H 98 Nasal Cannula 2 08/17/23 14:00 08/17/23 14:00 08/17/23 14:00 08/17/23 14:00 08/17/23 14:00 08/17/23 14:00 08/17/23 14:00 Oxygen Flow Rate (L/min) 2 Oxygen Delivery Method Nasal Cannula Weight: 241 lb 2.971 oz Body Mass Index (BMI) 32.7 Intake & Output: Intake and Output for Last 24 Hours 08/15/23 08/16/23 08/17/23 23:59 23:59 23:59 Intake Total 1337.0 / 1577.0 820 / 1060 2430 / 2430 Balance 1337.0 / 1577.0 820 / 1060 2430 / 2430 Lab / Micro Data 08/17/23 05:45 08/17/23 05:45 Labs: Laboratory Results - last 24 hr 08/16/23 21:20: POC Glucose 170 H 08/17/23 02:58: POC Glucose 49 L 08/17/23 03:22: POC Glucose 136 H 08/17/23 04:58: POC Glucose 94 08/17/23 05:45: WBC 16.7 H, RBC 4.69, Hgb 13.9, Hct 42.7, MCV 91.0, MCH 29.6, MCHC 32.6, RDW Std Deviation 47.6 H, RDW Coeff of Peggy 14.2, Plt Count 221, MPV 10.3, Immature Gran % (Auto) 2.900 H, Neut % (Auto) 87.9 H, Lymph % (Auto) 5.5 L, Jenkins % (Auto) 2.8, Eos % (Auto) 0.4, Baso % (Auto) 0.5, Absolute Neuts (auto) 14.7 H, Absolute Lymphs (auto) 0.92, Nucleated RBC % 0, Sodium 136, Potassium 3.9, Chloride 106, Carbon Dioxide 21.0, Anion Gap 9, BUN 59 H, Creatinine 2.47 H, Estim Creat Clear Calc 32.00, Est GFR (MDRD) Af Amer 33 L, Est GFR (MDRD) Non-Af 27 L, BUN/Creatinine Ratio 23.9 H, Glucose 96, Calcium 8.6 08/17/23 08:45: POC Glucose 115 H 08/17/23 11:58: POC Glucose 157 H 08/17/23 16:32: POC Glucose 363 H Micro: Microbiology 08/15/23 12:33 Sputum, Expectorated/Coughed Gram Stain - Final 08/15/23 12:33 Sputum, Expectorated/Coughed Respiratory Culture - Preliminary Yeast Like Organism 08/16/23 20:25 Stool Enteric Bacteriology - Final 08/16/23 14:27 Stool Clostridioides difficile (PCR) - Final 08/16/23 14:27 Stool Stool Lactoferrin - Final 08/16/23 14:27 Stool Stool Occult Blood (MALLORY) - Final 08/13/23 23:57 Blood Culture (Wb) - Right Forearm Blood Culture - Preliminary No growth in 48 hours. 08/14/23 03:00 Blood Culture (Wb) - Right Forearm Blood Culture - Preliminary No growth in 48 hours. 08/15/23 03:31 Urine, Clean Catch Legionella Antigen - Final 08/15/23 03:31 Urine, Clean Catch Streptococcus pneumoniae Antigen (M - Final 08/14/23 01:05 Mucosa - Nose SARS-CoV-2, Influenza & RSV (PCR) - Final Physical Exam Narrative Seen and examined. Patient on 2 L of oxygen. Patient was evaluated by tele senior data integration developer and recommended to continue bronchodilator and IV Solu-Medrol. No need for bronchoscopy. Although hypoxia is improved but patient denies any improvement in shortness of breath/dyspnea. Dyspnea on mild exertion. On IV antibiotic for pneumonia. No fever. Complain of diarrhea loose bowel movement. Physical exam General: Alert, Oriented x3, Cooperative. Obesity grade 1 BMI 33.6 kg/m? HEENT: Atraumatic, PERRLA, EOMI, Normocephalic Oral: Oral mucosa moist. No Gingival or Mucosal Lesions/ Ulcerations Neck: Supple, No JVD, Negative Carotid Bruits Chest wall/Lungs: Air entry diminished in bilateral lung bases. Mild crepitations Cardiovascular: AICD. Paced rhythm. Systolic murmur present. Abdomen: Bowel Sounds Present, Soft, Non Tender, Non-Distended : No dysuria. No renal angle tenderness. No suprapubic tenderness. Extremities: Mild subtle edema. Edema, Capillary Refill Less than 3 Seconds Skin: No rashes, No breakdown Musculoskeletal: No Tenderness to Palpation of Joints or Extremities. ROM restricted. Neurological: Cranial nerves II-XII grossly intact, DTR 2+/4. No acute focal neurological deficit. Psych/Mental Status: Normal Affect, Appropriate. Assessment & Plan Assessment/Plan (1) Pneumonia: QUALIFIERS: Pneumonia type: due to unspecified organism Laterality: right Lung location: unspecified part of lung Qualified Code(s): J18.9 - Pneumonia, unspecified organism (2) Acute CHF (congestive heart failure): QUALIFIERS: Heart failure type: unspecified Qualified Code(s): I50.9 - Heart failure, unspecified (3) Acute respiratory insufficiency: (4) Viral syndrome: (5) Adult failure to thrive: (6) Weakness: PLAN: Plan Acute multifocal, multilobular viral rhinovirus pneumonia with suspected secondary bacterial infection RLL pneumonia with likely consolidation and pleural effusion. Continue abx with pip/tazo and add linezolid COVID 19, influenza and RSV negative. Preliminary sputum culture does not show organisms but 2+ WBC. Antigens for Streptococcus Legionella negative Pulmonary toilet. Guaifenesin. Pep therapy Add vest therapy. If no improvement or certainly gets worse, consult pulmonary to see if bronchoscopy would indicated. 08/15: Patient is still has cough, not able to bring up phlegm. On incentive spirometry and chest physiotherapy. Pulmonary consulted as patient did not feel improvement in shortness of breath though hypoxia improved. 09/03 patient was evaluated by senior data integration developer. Recommended continue Zosyn. Speech therapy to evaluate for dysphagia/aspiration. Continue DuoNeb and Solu-Medrol and with long prednisone taper about 2 to 3 weeks. Continue diuresis. Acute hypoxic respiratory failure Present on admission, currently improving. secondary to pneumonia patient had low pO2 on ABG. Respiratory rate was up to 34 at 1 point. 84 this document I suspect was an accurate. Secondary to pneumonia. Currently on high flow oxygen. Wean as tolerated. 08/15 currently on 3 L of oxygen. Tachypnea has improved. Diabetes mellitus type 1 A1c 10.2 Uncontrolled Change glargine from 63 units at night to 35 units BID (since pt received 63 units last night, will start this evening, but will given 20 units this AM). Continue lispro 50 units with meals. On SSI. Glucose fasting 124. Premeal glucose is high in the range of 200 250. 08/16: Patient had hypoglycemic episode, glucose 49 and any BMP also glucose was 96. Scheduled insulin Humalog discontinued. Patient was on high dose of glargine insulin at home which is decreased with holding parameters. Patient had hypoglycemia protocol. Diarrhea most likely antibiotic associated: Stool for C. difficile and enteric bacteriology panel negative. Stool for leukocytes positive but occult blood negative. Probiotic added. Chronic conditions History of PAF: Continue apixaban and carvedilol Essential hypertension -stable Hyperlipidemia -continue statin. Hypothyroidism - Continue levothyroxine Synthroid. TSH within normal limits. Obesity class II: Complicates management and long-term care. CAD; s/p inferoposterior LA (2012) -stable History of ischemic cardiomyopathy -monitor closely History of VF cardiac arrest; s/p PPM/AICD (2012) History of CVA -anticoagulated on apixaban VTE prophylaxis -not indicated as patient is anticoagulated Charges/Coding Visit Charges Inpatient E&M: 90259 [facility] Hosp L2
[2023-08-17 22:28] VITALS: BP 144/90; PULSE 93; RESP 18; TEMP 36.7; O2SAT 95
[2023-08-17] MEDS: Magnesium Chloride 64 MG Delay Rel.Tablet 128 MG PO (22:52)
[2023-08-17] MEDS: MELATONIN 3 MG TABLET PO (22:53)
[2023-08-17] MEDS: Insulin Glargine-YFGN 100 UNIT/ML Pen 10 UNIT SC (23:07)
[2023-08-18 00:42] LABS: Bedside Glucose 419 mg/dL (74-106)
[2023-08-18 04:03] VITALS: BP 134/89; PULSE 88; RESP 18; TEMP 36.2; O2SAT 96
[2023-08-18 06:00] VITALS: BMI 32.5
[2023-08-18] MEDS: Levothyroxine 100 MCG Tablet PO (06:21)
[2023-08-18] MEDS: Piperacil/Tazobactam 3.375 GM in 0.9% Normal Saline (50mL MB+) 50 ML IV (06:26)
[2023-08-18] MEDS: Insulin Lispro 100 UNIT/ML INSULN.PEN SC ×2 (06:27→11:46)
[2023-08-18 06:59] LABS: Bedside Glucose 291 mg/dL (74-106)
[2023-08-18 07:20] VITALS: O2SAT 98
[2023-08-18 08:55] LABS: Absolute Lymphocyte Count 0.53 X10^3/uL (0.83-4.51); Absolute Neutrophil Count 10.5 X10^3/uL (2.0-7.7); Basophil# 0.09 X10^3/uL; Basophil% 0.8 % (0-1); Hematocrit 40.5 % (40-54); Hemoglobin 13.2 g/dL (13.0-16.5); Lymphocyte # 0.53 X10^3/ul (0.83-4.51); Lymphocyte % 4.4 % (19-41); Mean Corp Hgb Conc 32.6 g/dL (32-36); Mean Corpuscular Hgb 28.9 pg (27.0-32.0); Mean Corpuscular Volume 88.8 fL (80-94); Mean Platelet Vol. 9.7 fl (6.2-12.0); Monocyte# 0.34 X10^3/uL; Monocyte% 2.8 % (0-10); NRBC Flagged by Analyzer 0 % (0-5); Neutrophil # 10.49 X10^3/uL (2.7-7.7); Neutrophil % 87.7 % (47-70); POSITIVE DIFFERENTIAL YES; Platelet Count 201 K/mm3 (150-450); RBC Distribution Width CV 13.9 % (11.6-14.6); Red Blood Count 4.56 M/mm3 (4.6-6.2)
[2023-08-18 09:10] LABS: Anion Gap 8 (5-15); BUN 60 mg/dL (7-18); BUN/Creat Ratio 23.9 RATIO (10-20); Calcium,Total 7.8 mg/dL (8.5-10.1); Chloride 104 mmol/L (98-107); Creatinine, Serum 2.51 mg/dL (0.70-1.30); EST Glomerular Filtration Rate 27 mL/min (>60); Est Glom Filt Rate - Afr Amer 32 mL/min (>60); Glucose 300 mg/dL (74-106); Potassium 4.5 mmol/L (3.5-5.1); Sodium Level 134 mmol/L (136-145)
[2023-08-18 09:48] VITALS: BP 145/92; PULSE 92; RESP 18; TEMP 36.5; O2SAT 93
[2023-08-18] MEDS: Famotidine 200 MG/20 ML MDV 20 MG in 0.9% Normal Saline (Pres. free 8 ML 300 MG IV (10:05)
[2023-08-18] MEDS: Carvedilol 25 MG Tablet PO (10:06)
[2023-08-18] MEDS: 0.9% Saline Lock 10 ML Syringe IV (10:06)
[2023-08-18] MEDS: Zinc Sulfate 50 mg zinc (220 mg) ORAL capsule PO (10:06)
[2023-08-18] MEDS: Lactobacillis Acidophilus 2 CAP PO (10:07)
[2023-08-18] MEDS: guaiFENesin/D-Methorphan TAB.SR.12H 2 TABLET PO (10:07)
[2023-08-18] MEDS: Clopidogrel Bisulfate 75 MG Tablet PO (10:07)
[2023-08-18] MEDS: Pyridoxine HCl 50 MG Tablet PO (10:07)
[2023-08-18] MEDS: Ascorbic Acid 500 MG Tablet 1000 MG PO (10:07)
[2023-08-18] MEDS: APIXABAN 5 MG TABLET PO (10:07)
[2023-08-18] MEDS: Atorvastatin Calcium 40 MG Tablet PO (10:07)
[2023-08-18] MEDS: Cholecalciferol (Vit D3) 125 MCG CAPSULE (5,000 UNITS) PO (10:08)
[2023-08-18] MEDS: Furosemide 40 MG/4 ML Vial IV (10:11)
[2023-08-18] MEDS: Insulin Glargine-YFGN 100 UNIT/ML Pen 20 UNIT SC (10:14)
[2023-08-18] MEDS: Linezolid 600 MG 600 MG/300 ML BAG 200 MG IV (10:16)
[2023-08-18 10:34] LABS: Pathologist Review Reviewed
[2023-08-18] MEDS: Ipratropium/Albuterol Sulfate 3 ML AMPUL.NEB INHALATION (11:07)
[2023-08-18 11:09] VITALS: PULSE 90; RESP 16
[2023-08-18 11:49] VITALS: O2SAT 86; O2SAT 89; O2SAT 92
--- NOTE | 2023-08-18 11:59 | DCINST_ITS ---
Discharge Instructions Diet Discharge Diet: Low fat / Low cholesterol and 2000 mg Sodium Diet Activity Discharge Activity: Return to Normal Activity Weight Bearing Status: Weight bearing as tolerated Dressing / Incision Call your doctor if you observe: Fever of 101 or Higher, Coldness, Increased Pain, Numbness or Tingling, Change in Color, Inability to urinate, Inability to have a bowel movement, Shortness of breath, Dizziness, Fainting spells, Swelling in the ankles, Chest pain, Prolonged hiccupping, Increased palpitations (irregular heartbeat) and Calf discomfort Follow Up Care When: IN 2 WEEKS Test Results: Test results from this visit will be discussed in further detail at your follow- up appointment, if applicable. Discharge Plan Admission Admit Date/Time: 08/14/23 03:18 Primary Reason for Your Visit: Right lower lobe pneumonia Attending Provider: Eren Mendez Primary Care Provider: Nathen Chang Consulting Providers: Cedrick Valdez; Nathen Yen Discharge Orders/Prescriptions Prescriptions: No Action fexofenadine-pseudoephedrine 1 TAB.SR tablet extended release 24 hr 1 tab PO DAILY PRN (Reason: ALLERGIES ) insulin glargine 100 unit/mL (3 mL) Insulin Pen 63 unit SUBCUT QPM acetaminophen [Tylenol Extra Strength] 500 mg tablet 1,000 mg PO Q6H PRN (Reason: PAIN ) Qty: 20 0RF rosuvastatin 20 mg tablet 20 mg PO DAILY Qty: 30 2RF insulin lispro [Humalog KwikPen Insulin] 100 unit/mL insulin pen 50 unit subcut TIDAC pyridoxine (vitamin B6) 50 mg tablet 50 mg PO TIDCM magnesium oxide 400 mg magnesium tablet 400 mg PO QHS clopidogrel 75 mg tablet 75 mg PO DAILY levothyroxine 100 mcg tablet 100 mcg PO DAILY cholecalciferol (vitamin D3) 125 mcg (5,000 unit) tablet 125 mcg PO DAILY furosemide [Lasix] 20 mg tablet 20 mg PO DAILY 7 Days Qty: 7 0RF carvedilol 25 mg tablet 25 mg PO BID Qty: 180 3RF Eliquis 5 mg tablet 5 mg PO BID Qty: 180 3RF Referrals / Follow Up: Nathen Chang MD [Primary Care Provider] -
--- NOTE | 2023-08-18 11:59 | PCM.DC ---
Discharge Instructions Diet Discharge Diet: Low fat / Low cholesterol and 2000 mg Sodium Diet Activity Discharge Activity: Return to Normal Activity Weight Bearing Status: Weight bearing as tolerated Dressing / Incision Call your doctor if you observe: Fever of 101 or Higher, Coldness, Increased Pain, Numbness or Tingling, Change in Color, Inability to urinate, Inability to have a bowel movement, Shortness of breath, Dizziness, Fainting spells, Swelling in the ankles, Chest pain, Prolonged hiccupping, Increased palpitations (irregular heartbeat) and Calf discomfort Follow Up Care When: IN 2 WEEKS Test Results: Test results from this visit will be discussed in further detail at your follow-up appointment, if applicable. Discharge Plan Admission Admit Date/Time: 08/14/23 03:18 Primary Reason for Your Visit: Right lower lobe pneumonia Attending Provider: Eren Mendez Primary Care Provider: Nathen Chang Consulting Providers: Cedrick Valdez; Nathen Yen Instructions Additional Instructions / Restrictions: Follow-up CT chest in consultation with PCP in 6 weeks to document clearance of pneumonia. Discharge Orders/Prescriptions Prescriptions: [place],saliva-B.bif-S.therm 175 mg Capsule 1 cap PO BID Qty: 0 0RF Rx Instructions: Probiotic advised with [id number] Mucinex DM 30-600 mg Tablet Extended Release 12 Hr 2 tab PO BID 7 Days Qty: 28 0RF Combivent Respimat 20-100 mcg/actuation mist 2 puff inhalation Q6H PRN (Reason: shortness of breath or wheezing) Qty: 4 0RF amoxicillin-pot clavulanate [Augmentin] 500-125 mg tablet 1 tab PO BID 7 Days Qty: 14 0RF furosemide [Lasix] 40 mg tablet 40 mg PO DAILY 30 Days Qty: 30 0RF prednisone 10 mg tablet See Taper PO DAILY Qty: 30 0RF Taper: Prednisone Taper 50 mg WITH BREAKFAST for 5 Days and 0 Hour 40 mg WITH BREAKFAST for 5 Days and 0 Hour 30 mg WITH BREAKFAST for 5 Days and 0 Hour 20 mg WITH BREAKFAST for 5 Days and 0 Hour 10 mg WITH BREAKFAST for 5 Days and 0 Hour pantoprazole [Protonix] 40 mg tablet,delayed release (DR/EC) 40 mg PO DAILY 30 Days Qty: 30 0RF Continued fexofenadine-pseudoephedrine 1 TAB.SR tablet extended release 24 hr 1 tab PO DAILY PRN (Reason: ALLERGIES ) acetaminophen [Tylenol Extra Strength] 500 mg tablet 1,000 mg PO Q6H PRN (Reason: PAIN ) Qty: 20 0RF rosuvastatin 20 mg tablet 20 mg PO DAILY Qty: 30 2RF pyridoxine (vitamin B6) 50 mg tablet 50 mg PO TIDCM magnesium oxide 400 mg magnesium tablet 400 mg PO QHS clopidogrel 75 mg tablet 75 mg PO DAILY levothyroxine 100 mcg tablet 100 mcg PO DAILY cholecalciferol (vitamin D3) 125 mcg (5,000 unit) tablet 125 mcg PO DAILY carvedilol 25 mg tablet 25 mg PO BID Qty: 180 3RF Eliquis 5 mg tablet 5 mg PO BID Qty: 180 3RF Changed insulin glargine 100 unit/mL (3 mL) Insulin Pen 50 unit SUBCUT QPM 30 Days Qty: 0 0RF insulin lispro [Humalog KwikPen Insulin] 100 unit/mL insulin pen 30 unit subcut TIDAC 30 Days Qty: 0 0RF Rx Instructions: Hold if glucose less than 130 mg/dl Discontinued furosemide [Lasix] 20 mg tablet 20 mg PO DAILY 7 Days Qty: 7 0RF Referrals / Follow Up: Noble Pugh DO [Med Staff - Active Staff] - Within 1 Month Nathen Chang MD [Primary Care Provider] - Within 2 Weeks Disposition Disposition (needs filled in before D/C Order can be placed): Home, Self Care
[2023-08-18 12:06] LABS: Bedside Glucose 345 mg/dL (74-106)
--- NOTE | 2023-08-18 12:27 | DS.PCM_ITS ---
Providers Date of Admission: 08/14/23 Date of Discharge: 08/18/23 Primary Care Physician: Dr. Nathen Chang MD Consultations 08/16/23 10:21 Consult: Online Marketer / Pulmonary Medicine Routine Consulting Provider: Intensivists/Pulmonary Med Reason for Consult: SOB/RLL Pneumonia, not improving EMERGENT Consult: No MD Notified: Yes Date Notified: 08/16/23 Time Notified: 10:22 Method of Notification: Verbal Reason For Visit: MULTIFOCAL NOSOCOMIAL PNEUMONIA AFTER RECENT Diagnosis Discharge Diagnosis (1) Pneumonia: Status: Acute Code(s): J18.9 - Pneumonia, unspecified organism Qualifiers: Pneumonia type: due to unspecified organism Laterality: right Lung location: unspecified part of lung Qualified Code(s): J18.9 - Pneumonia, unspecified organism (2) Acute CHF (congestive heart failure): Status: Acute Code(s): I50.9 - Heart failure, unspecified Qualifiers: Heart failure type: unspecified Qualified Code(s): I50.9 - Heart failure, unspecified (3) Acute respiratory insufficiency: Status: Acute Code(s): R06.89 - Other abnormalities of breathing (4) Viral syndrome: Status: Inactive Code(s): B34.9 - Viral infection, unspecified (5) Adult failure to thrive: Status: Inactive Code(s): R62.7 - Adult failure to thrive (6) Weakness: Status: Acute Code(s): R53.1 - Weakness Plan Acute multifocal, multilobular viral rhinovirus pneumonia with suspected secondary bacterial infection * RLL pneumonia with likely consolidation and pleural effusion. * Continue abx with pip/tazo and add linezolid * COVID 19, influenza and RSV negative. * Preliminary sputum culture does not show organisms but 2+ WBC. Antigens for Streptococcus Legionella negative * Pulmonary toilet. Guaifenesin. Pep therapy * Add vest therapy. If no improvement or certainly gets worse, consult pulmonary to see if bronchoscopy would indicated. 08/15: Patient is still has cough, not able to bring up phlegm. On incentive spirometry and chest physiotherapy. Pulmonary consulted as patient did not feel improvement in shortness of breath though hypoxia improved. 08/16: Patient was evaluated by search strategist. Recommended continue Zosyn. Speech therapy to evaluate for dysphagia/aspiration. Continue DuoNeb and Solu- Medrol and with long prednisone taper about 2 to 3 weeks. Continue diuresis. 08/17: Prescription given for long taper of prednisone over 20 days, Combivent inhaler, prescription Augmentin, Mucinex DM and furosemide. Follow-up in pulmonary clinic in 1 week. Patient will need CT chest without contrast in 6 weeks to document clearance of pneumonia. Acute hypoxic respiratory failure * Present on admission, currently improving. * secondary to pneumonia * patient had low pO2 on ABG. Respiratory rate was up to 34 at 1 point. 84 this document I suspect was an accurate. Secondary to pneumonia. Currently on high flow oxygen. Wean as tolerated. 08/15 currently on 3 L of oxygen. Tachypnea has improved. 08/17: Patient 92% on room air, 86% ambulating on room air, 89% on 2 L of oxygen. I have reviewed the oxygen testing, and this patient qualifies for the home equipment and portability. The patient is mobile in the home and the community. Diabetes mellitus type 1 * A1c 10.2 * Uncontrolled * Change glargine from 63 units at night to 35 units BID (since pt received 63 units last night, will start this evening, but will given 20 units this AM). Continue lispro 50 units with meals. On SSI. * Glucose fasting 124. Premeal glucose is high in the range of 200 250. 08/16: Patient had hypoglycemic episode, glucose 49 and any BMP also glucose was 96. Scheduled insulin Humalog discontinued. Patient was on high dose of glargine insulin at home which is decreased with holding parameters. Patient had hypoglycemia protocol. Diarrhea most likely antibiotic associated: Stool for C. difficile and enteric bacteriology panel negative. Stool for leukocytes positive but occult blood negative. Probiotic added. Chronic conditions * History of PAF: Continue apixaban and carvedilol * Essential hypertension -stable * Hyperlipidemia -continue statin. * Hypothyroidism - Continue levothyroxine Synthroid. TSH within normal limits. * Obesity class II: Complicates management and long-term care. * CAD; s/p inferoposterior [place] (2012) -stable * History of ischemic cardiomyopathy -monitor closely * History of VF cardiac arrest; s/p PPM/AICD (2012) * History of CVA -anticoagulated on apixaban VTE prophylaxis -not indicated as patient is anticoagulated Medications at Discharge Home Medications fexofenadine-pseudoephedrine ER 180 mg-240 mg tablet,ext.release 24 hr 1 tab PO DAILY PRN ALLERGIES 01/20/16 acetaminophen 500 mg tablet (Tylenol Extra Strength) 1,000 mg (2 x 500 mg) PO Q6H PRN PAIN #20 tabs 10/22/21 rosuvastatin 20 mg tablet 20 mg PO DAILY CHOLESTEROL #30 tabs 02/03/22 magnesium oxide 400 mg PO QHS SUPPLEMENT 12/27/22 pyridoxine (vitamin B6) 50 mg tablet 50 mg PO TIDCM SUPPLEMENT 12/27/22 carvedilol 25 mg tablet 25 mg PO BID HEART #180 tabs 01/13/23 apixaban 5 mg tablet (Eliquis) 5 mg PO BID BLOOD THINNER #180 tabs 04/09/23 clopidogrel 75 mg tablet 75 mg PO DAILY BLOOD THINNER 08/06/23 cholecalciferol (vitamin D3) 125 mcg (5,000 unit) tablet 125 mcg PO DAILY SUPPLEMENT 08/12/23 levothyroxine 100 mcg tablet 100 mcg PO DAILY THYROID 08/12/23 L.acidophil,salivari-Bifido bifidum-Strep thermoph 175 mg capsule 1 cap PO BID #0 caps 08/18/23 amoxicillin 500 mg-potassium clavulanate 125 mg tablet (Augmentin) 1 tab PO BID 7 days #14 tabs 08/18/23 dextromethorphan-guaifenesin 30 mg-600 mg tablet extended [id number] hr (Mucinex DM) 2 tab PO BID 7 days #28 tabs 08/18/23 furosemide 40 mg tablet (Lasix) 40 mg PO DAILY 1 month #30 tabs 08/18/23 insulin glargine 100 unit/mL (3 mL) subcutaneous pen 50 unit (0.5 mL) subcut QPM DIABETES 30 days #0 mL 08/18/23 insulin lispro 100 unit/mL subcutaneous pen (Humalog KwikPen (U-100) Insulin) 30 unit (0.3 mL) subcut TIDAC DIABETES 30 days #0 mL 08/18/23 ipratropium 20 mcg-albuterol 100 mcg/actuation mist for inhalation (Combivent Respimat) 2 puff inhalation Q6H PRN shortness of breath or wheezing #4 grams 08/18/23 pantoprazole 40 mg tablet,delayed release (Protonix) 40 mg PO DAILY 1 month #30 tabs 08/18/23 prednisone 10 mg tablet See Taper PO DAILY #30 tabs 08/18/23 Physical Exam Narrative Seen and examined. Patient on room air. Requires oxygen on ambulation. Cough is better. Physical exam General: Alert, Oriented x3, Cooperative. Obesity grade 1 BMI 33.6 kg/m? HEENT: Atraumatic, PERRLA, EOMI, Normocephalic Oral: Oral mucosa moist. No Gingival or Mucosal Lesions/ Ulcerations Neck: Supple, No JVD, Negative Carotid Bruits Chest wall/Lungs: Air entry diminished in bilateral lung bases. No crepitations. Cardiovascular: AICD. Paced rhythm. Systolic murmur present. Abdomen: Bowel Sounds Present, Soft, Non Tender, Non-Distended : No dysuria. No renal angle tenderness. No suprapubic tenderness. Extremities: Mild subtle edema. Edema, Capillary Refill Less than 3 Seconds Skin: No rashes, No breakdown Musculoskeletal: No Tenderness to Palpation of Joints or Extremities. ROM restricted. Neurological: Cranial nerves II-XII grossly intact, DTR 2+/4. No acute focal neurological deficit. Psych/Mental Status: Normal Affect, Appropriate. Weight / BMI Weight Weight: 239 lb 13.807 oz Body Mass Index (BMI) 32.5 ABG / Lab / Microbiology Data 08/18/23 08:40 08/18/23 08:40 Laboratory: Laboratory Results - last 24 hr 08/14/23 05:14: Diff Path Review Reviewed 08/17/23 16:32: POC Glucose 363 H 08/17/23 22:34: POC Glucose 419 H 08/18/23 06:25: POC Glucose 291 H 08/18/23 08:40: WBC 12.0 H, RBC 4.56 L, Hgb 13.2, Hct 40.5, MCV 88.8, MCH 28.9, MCHC 32.6, RDW Std Deviation 45.0 H, RDW Coeff of Peggy 13.9, Plt Count 201, MPV 9.7, Immature Gran % (Auto) 4.300 H, Neut % (Auto) 87.7 H, Lymph % (Auto) 4.4 L, Taylor % (Auto) 2.8, Eos % (Auto) 0.0, Baso % (Auto) 0.8, Absolute Neuts (auto) 10.5 H, Absolute Lymphs (auto) 0.53 L, Nucleated RBC % 0, Sodium 134 L, Potassium 4.5, Chloride 104, Carbon Dioxide 22.0, Anion Gap 8, BUN 60 H, C reatinine 2.51 H, Estim Creat Clear Calc 31.40, Est GFR (MDRD) Af Amer 32 L, Est GFR (MDRD) Non-Af 27 L, BUN/Creatinine Ratio 23.9 H, Glucose 300 H, Calcium 7.8 L 08/18/23 11:45: POC Glucose 345 H Microbiology: Microbiology 08/15/23 12:33 Sputum, Expectorated/Coughed Gram Stain - Final 08/15/23 12:33 Sputum, Expectorated/Coughed Respiratory Culture - Preliminary Yeast Like Organism 08/16/23 20:25 Stool Enteric Bacteriology - Final 08/16/23 14:27 Stool Clostridioides difficile (PCR) - Final 08/16/23 14:27 Stool Stool Lactoferrin - Final 08/16/23 14:27 Stool Stool Occult Blood (MALLORY) - Final 08/13/23 23:57 Blood Culture (Wb) - Right Forearm Blood Culture - Preliminary No growth in 48 hours. 08/14/23 03:00 Blood Culture (Wb) - Right Forearm Blood Culture - Preliminary No growth in 48 hours. 08/15/23 03:31 Urine, Clean Catch Legionella Antigen - Final 08/15/23 03:31 Urine, Clean Catch Streptococcus pneumoniae Antigen (M - Final 08/14/23 01:05 Mucosa - Nose SARS-CoV-2, Influenza & RSV (PCR) - Final D/C Instructions Discharge Diet: Low fat / Low cholesterol and 2000 mg Sodium Diet Weight Bearing Status: Weight bearing as tolerated Call your doctor if you observe: Fever of 101 or Higher, Coldness, Increased Pain, Numbness or Tingling, Change in Color, Inability to urinate, Inability to have a bowel movement, Shortness of breath, Dizziness, Fainting spells, Swelling in the ankles, Chest pain, Prolonged hiccupping, Increased palpitations (irregular heartbeat) and Calf discomfort When: IN 2 WEEKS Meaningful Use Info Meaningful Use Meaningful Use Diagnoses (Choose all that apply): None applicable Ischemic Stroke Statin Dosing Therapy Reference: STATIN DOSE THERAPY REFERENCE: * Patients > 75 years receive moderate or high dose statin therapy. * Patients 75 years or YOUNGER should receive HIGH intensity statin dose unless contraindicated. You will be required to document reason for non-treatment if statin daily dose does not meet guidelines. HIGH DOSE STATIN THERAPY DAILY Atorvastatin > than or = to 40 mg Rosuvastatin > than or = to 20 mg Amlodipine + Atorvastatin > than or = to 2.5/40 mg Ezetimibe + Simvastatin 10/80 mg Simvastatin 80mg Discharge Plan Admission Admit Date/Time: 08/14/23 03:18 Primary Reason for Your Visit: Right lower lobe pneumonia Attending Provider: Eren Mendez Primary Care Provider: Nathen Chang Consulting Providers: Cedrick Valdez; Nathen Yen Instructions Additional Instructions / Restrictions: Follow-up CT chest in consultation with PCP in 6 weeks to document clearance of pneumonia. Discharge Orders/Prescriptions Prescriptions: Angelique Weberbif-S.therm 175 mg Capsule 1 cap PO BID Qty: 0 0RF Rx Instructions: Probiotic advised with [id number]-rbaxgbs Mucinex DM 30-600 mg Tablet Extended Release 12 Hr 2 tab PO BID 7 Days Qty: 28 0RF Combivent Respimat 20-100 mcg/actuation mist 2 puff inhalation Q6H PRN (Reason: shortness of breath or wheezing) Qty: 4 0RF amoxicillin-pot clavulanate [Augmentin] 500-125 mg tablet 1 tab PO BID 7 Days Qty: 14 0RF furosemide [Lasix] 40 mg tablet 40 mg PO DAILY 30 Days Qty: 30 0RF prednisone 10 mg tablet See Taper PO DAILY Qty: 30 0RF Taper: Prednisone Taper 50 mg WITH BREAKFAST for 5 Days and 0 Hour 40 mg WITH BREAKFAST for 5 Days and 0 Hour 30 mg WITH BREAKFAST for 5 Days and 0 Hour 20 mg WITH BREAKFAST for 5 Days and 0 Hour 10 mg WITH BREAKFAST for 5 Days and 0 Hour pantoprazole [Protonix] 40 mg tablet,delayed release (DR/EC) 40 mg PO DAILY 30 Days Qty: 30 0RF Continued fexofenadine-pseudoephedrine 1 TAB.SR tablet extended release 24 hr 1 tab PO DAILY PRN (Reason: ALLERGIES ) acetaminophen [Tylenol Extra Strength] 500 mg tablet 1,000 mg PO Q6H PRN (Reason: PAIN ) Qty: 20 0RF rosuvastatin 20 mg tablet 20 mg PO DAILY Qty: 30 2RF pyridoxine (vitamin B6) 50 mg tablet 50 mg PO TIDCM magnesium oxide 400 mg magnesium tablet 400 mg PO QHS clopidogrel 75 mg tablet 75 mg PO DAILY levothyroxine 100 mcg tablet 100 mcg PO DAILY cholecalciferol (vitamin D3) 125 mcg (5,000 unit) tablet 125 mcg PO DAILY carvedilol 25 mg tablet 25 mg PO BID Qty: 180 3RF Eliquis 5 mg tablet 5 mg PO BID Qty: 180 3RF Changed insulin glargine 100 unit/mL (3 mL) Insulin Pen 50 unit SUBCUT QPM 30 Days Qty: 0 0RF insulin lispro [Humalog KwikPen Insulin] 100 unit/mL insulin pen 30 unit subcut TIDAC 30 Days Qty: 0 0RF Rx Instructions: Hold if glucose less than 130 mg/dl Discontinued furosemide [Lasix] 20 mg tablet 20 mg PO DAILY 7 Days Qty: 7 0RF Referrals / Follow Up: Noble Pugh DO [Med Staff - Active Staff] - Within 1 Month Nathen Chang MD [Primary Care Provider] - Within 2 Weeks Disposition Disposition (needs filled in before D/C Order can be placed): Home, Self Care Charges/Coding Visit Charges Inpatient E&M: 44348 Disch Hosp >30min
--- NOTE | 2023-08-18 14:00 | CASEMGMT ---
Patient has order for discharge. Patient will need home oxygen at discharge. KOSTAS NEELY in to discuss needs at discharge. Patient states he would like [facility] at discharge. KOSTAS NEELY reviewed DME agencies with patient and would like [facility]. Patient denied further needs at discharge. KOSTAS NEELY received script for oxygen and referral sent to [facility] via [employer], tank provided from [facility] [employer]. KOSTAS NEELY called and made referral to [facility]. Patient accepted with start of care for tomorrow. KOSTAS NEELY updated discharge plan. KOSTAS NEELY updated patient regarding HHC acceptance. Patient had no further questions or concerns.
[2023-08-18 14:56] VITALS: BP 130/78; PULSE 99; RESP 16; TEMP 36.7; O2SAT 94
--- NOTE | 2023-08-18 16:32 | ST.MBS ---
Modified Barium Swallow Patient Information Study Date: 08/18/23 Study Time: 14:00 Direct Billable Minutes: 62 Total Minutes procedure & reportin Diagnosis: PNA J18.9, COPD J44.9 Referring Physician: Eren Mendez Reason for Referral: Objectively assess swallow function, assess risk for aspiration, and determine recommendations for least restrictive diet textures and compensatory strategies to improve safety of swallow. Medical History: Patient had recent admission from 08/06/23 to 08/08/23 for Rhinovirus. He re-presented to [facility] ED on 08/14/23 with progressively worsening SOB. In the ER he was noted to have RLL PNA along with patchy airspace disease in the RUL plus with a small right pleural effusion consistent with multifocal pneumonia. He was admitted for treatment of PNA & COPD exacerbation. He reported occasional choking/coughing while eating. He has had multiple recent admissions for breathing issues. He was referred for ST consult due to concerns for aspiration. During BSE 08/17/23, he was recommended for regular textures / thin liquids with plans for MBSS to further assess risk for aspiration given current RLL PNA and recurrent admissions for breathing difficulty. 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 Current Diet Ordered: Regular textures / Thin liquids Mental Status: WNL Respiratory Status: Oxygenating on Room Air Penetration-Aspiration Scale Penetration-Aspiration Scale: OBJECTIVE ASSESSMENT OF SWALLOW FUNCTION (QUANTITATIVE ? PER TRIAL): PENETRATION / ASPIRATION SCALE (LUU): 1 = does not enter airway 2 = enters airway/above vocal folds/ejected 3 = enters airway/above vocal folds/not ejected 4 = enters airway/contacts vocal folds/ejected 5 = enters airway/contacts vocal folds/not ejected 6 = enters airway/below vocal folds/ejected 7 = enters airway/below vocal folds/not ejected despite effort 8 = enters airway/below vocal folds/no effort VIDEOFLOROSCOPIC SCALE SCORE (LUU): Grade I = aspiration of material that has penetrated into the laryngeal vestibule, intact cough reflex Grade II = aspiration < 10 % of the bolus, intact cough reflex Grade III = aspiration of < 10 % of the bolus, reduced cough reflex or aspiration of > 10 % of the bolus, intact cough reflex Grade IV = aspiration of > 10 % of the bolus, reduced cough reflex Penetration-Aspiration Scale Score Thin Liquid via teaspoon: Result: 2= enter airway/above vocal folds/ejected Thin Liquid via teaspoon Trial 2: Result: 2= enter airway/above vocal folds/ejected Thin Liquid via large single sip: cup: Result: 1= does not enter airway [place] Thick Liquid via large single sip: cup: Result: 1= does not enter airway Pudding via teaspoon: Result: 1= does not enter airway Comment: Esophageal screen - mild retention of pudding in the mid esophagus. 1/2 Cookie: Result: 1= does not enter airway Thin Liquid via sequential sips:straw: Result: 2= enter airway/above vocal folds/ejected Comment: Esophageal screen - minimal retention in the lower esophagus. Oral Phase Labial Seal: Interlabial escape, no progression to anterior lip Tongue Control During Bolus Hold: Posterior escape of greater than half of bolus Bolus Preparation/Mastication: Slow prolonged chewing/mashing with complete recollection Bolus Transport/Lingual Motion: Slowed tongue motion Oral Residue: Trace residue lining oral structures Pharyngeal Phase Initiation of Pharyngeal Swallow: Bolus head in pyriforms Soft Palate Elevation: Trace column of contrast/air between soft palate and pharyngeal wall Laryngeal Elevation: Comp. Superior move thyroid cart w/comp. apprx arytenoid cart-epig pet Anterior Hyoid Excursion: Partial anterior movement Epiglottic Movement: Complete inversion Laryngeal Vestibule Closure at Height of Swallow: Incomplete; narrow column of air/contrast in laryngeal vestibule Pharyngoesophageal Segment Opening: Complete distension and complete duration; no obstruction of flow Tongue Base Retraction: Trace column of contrast between tongue base & post. pharyngeal wall Pharyngeal Residue: Trace residue within or on pharyngeal structures Esophageal Phase Esophageal Clearance: Esophageal retention Diagnosis/Impression Diagnosis: Mild oropharyngeal dysphagia R13.12 Impression: The oral phase is primarily marked by... -Decreased bolus control with premature posterior loss of >1/2 of thin liquid bolus prior to swallow onset, most notable with thin liquids via straw. -Slowed, but complete mastication. The pharyngeal phase is primarily marked by... -Delayed swallow onset. -Trace laryngeal penetration of thin liquids with full ejection after the swallow. No aspiration observed; however, cannot definitively rule out aspiration due to patient's body habitus. The esophageal phase is primarily marked by.. -Mild retention of barium pudding in the mid esophagus, which appeared to fully clear with thin liquid wash following pudding and cookie. Minimal retention of barium liquids in the lower esophagus. Recommendations Diet: Regular Textures and Thin Liquids Compensatory Strategies: Small Bites, Small Sips, Slow Rate, Alternate bites/solids and sips/liquids, Sitting upright and Remain sitting upright for 30 minutes after PO intake Recommend Repeat Modified Barium Swallow: No Need for Skilled Speech Therapy Services: Yes Comment: -Train the patient in use of strategies to decrease risk for aspiration. -Ongoing assessment of diet tolerance of recommended textures. -Train the patient oropharyngeal exercise program to improve bolus control and swallow onset (lingual resistance, Mirtha). Education Completed: 1. Described result of evaluation. and 2. Pt understands evaluation & agrees with goals and treatment plan. Status Active ST Patient: Active Contact Information [facility] Speech Therapy:: Ramya Ochoa M.A. CCC-CORPORATE EVENT PLANNER? Speech-Language Pathologist?? [facility] [address]?? [place] [address]?? [email or web address]?? [phone]
== END 2023-08-18 15:59 | disposition home health service (06) | DRG 177 ==
LOC: ED 08-14 02:56 → PCU 08-14 03:36
PROVIDERS: Admitting Provider Internal Medicine; Emergency Provider Emergency Medicine; PCP Family Medicine; Visit Provider Internal Medicine
DX: J15.69 Pneumonia due to other Gram-negative bacteria (principal); J96.21 Acute and chronic respiratory failure with hypoxia; I50.33 Acute on chronic diastolic (congestive) heart failure; K52.1 Toxic gastroenteritis and colitis; Q60.0 Renal agenesis, unilateral; J44.0 Chronic obstructive pulmonary disease with (acute) lower respiratory infection; I13.0 Hypertensive heart and chronic kidney disease with heart failure and stage 1 through stage 4 chronic kidney disease, or unspecified chronic kidney disease; R62.7 Adult failure to thrive; E10.22 Type 1 diabetes mellitus with diabetic chronic kidney disease; N18.30 Chronic kidney disease, stage 3 unspecified; Z79.4 Long term (current) use of insulin; I48.0 Paroxysmal atrial fibrillation; E03.9 Hypothyroidism, unspecified; J12.89 Other viral pneumonia; I25.10 Atherosclerotic heart disease of native coronary artery without angina pectoris; E78.5 Hyperlipidemia, unspecified; I25.5 Ischemic cardiomyopathy; Z68.33 Body mass index [BMI] 33.0-33.9, adult; Z87.891 Personal history of nicotine dependence; E66.9 Obesity, unspecified; R06.02 Shortness of breath; R60.0 Localized edema; Z79.890 Hormone replacement therapy; Z79.01 Long term (current) use of anticoagulants; Z95.810 Presence of automatic (implantable) cardiac defibrillator; Z79.899 Other long term (current) drug therapy; Z86.74 Personal history of sudden cardiac arrest; T36.95XA Adverse effect of unspecified systemic antibiotic, initial encounter
CPT/HCPCS: 36415; 36600; 71046; 71250; 74230; 80048; 80053; 82274; 82803; 82962; 83036; 83630; 83735; 83880; 84100; 84443; 84484; 85025; 87040; 87070; 87205; 87449; 87493; 87506; 87631; 92610; 92611; 93005; 94640; 94668; 96374; 97116; 97161; 97166; 97530; 97535; 99252; 99283; 99284; J2020; J7030; J7040; J7050; P9047; A4216; G0463; J1940; J3490

== ENCOUNTER → 2023-08-27 | Outpatient (CLI) | payer MEDICARE, SELFPAY ==
[2023-08-27 16:08] LABS: Anion Gap 7 (5-15); BUN 61 mg/dL (7-18); BUN/Creat Ratio 24.8 RATIO (10-20); Calcium,Total 9.5 mg/dL (8.5-10.1); Chloride 101 mmol/L (98-107); Creatinine, Serum 2.46 mg/dL (0.70-1.30); EST Glomerular Filtration Rate 27 mL/min (>60); Est Glom Filt Rate - Afr Amer 33 mL/min (>60); Glucose 172 mg/dL (74-106); Potassium 5.2 mmol/L (3.5-5.1); Sodium Level 136 mmol/L (136-145)
== END | disposition home or self-care (01) ==
LOC: MFPLAB 12:07
PROVIDERS: Nurse Practitioner Family; PCP Family Medicine; Visit Provider Family Medicine
DX: I50.812 Chronic right heart failure (principal)
CPT/HCPCS: 36415; 80048

== ENCOUNTER → 2023-09-08 | Outpatient (CLI) | payer MEDICARE, SELFPAY ==
[2023-09-08 12:29] LABS: Anion Gap 5 (5-15); BUN 48 mg/dL (7-18); BUN/Creat Ratio 20.7 RATIO (10-20); Calcium,Total 8.6 mg/dL (8.5-10.1); Chloride 104 mmol/L (98-107); Creatinine, Serum 2.32 mg/dL (0.70-1.30); EST Glomerular Filtration Rate 29 mL/min (>60); Est Glom Filt Rate - Afr Amer 35 mL/min (>60); Glucose 320 mg/dL (74-106); Potassium 5.2 mmol/L (3.5-5.1); Sodium Level 137 mmol/L (136-145)
== END | disposition home or self-care (01) ==
LOC: MFPLAB 09:40
PROVIDERS: Nurse Practitioner Family; PCP Family Medicine; Visit Provider Family Medicine
DX: E11.22 Type 2 diabetes mellitus with diabetic chronic kidney disease (principal); N18.9 Chronic kidney disease, unspecified
CPT/HCPCS: 36415; 80048

== ENCOUNTER → 2023-09-17 | Outpatient (CLI) | payer MEDICARE, SELFPAY ==
[2023-09-17 18:15] LABS: BNP,B-Type NATRIURETIC PEPTIDE 438.1 pg/mL (0-100)
[2023-09-17 18:36] LABS: ALB/GLOB Ratio 0.7 RATIO (0.9-2.4); AST(SGOT) 34 U/L (15-37); Alanine Aminotransfer ALT/SGPT 48 U/L (16-61); Albumin, Serum 2.6 g/dL (3.2-5.0); Alkaline Phosphatase 62 U/L (45-117); Anion Gap 6 (5-15); BUN 44 mg/dL (7-18); BUN/Creat Ratio 17.3 RATIO (10-20); Chloride 107 mmol/L (98-107); Creatinine, Serum 2.55 mg/dL (0.70-1.30); EST Glomerular Filtration Rate 26 mL/min (>60); Est Glom Filt Rate - Afr Amer 32 mL/min (>60); Globulin 3.5 g/dL (2.2-4.2); Glucose 138 mg/dL (74-106); Potassium 4.9 mmol/L (3.5-5.1); Protein, Total 6.1 g/dL (6.4-8.2); Sodium Level 141 mmol/L (136-145); Thyroid Stim Hormone (TSH) 2.69 uIU/mL (0.358-3.74)
== END | disposition home or self-care (01) ==
LOC: MFPLAB 16:40
PROVIDERS: PCP Family Medicine; Visit Provider Family Medicine
DX: L03.115 Cellulitis of right lower limb (principal); I50.812 Chronic right heart failure; E11.39 Type 2 diabetes mellitus with other diabetic ophthalmic complication
CPT/HCPCS: 36415; 80053; 83036; 83880; 84443; 86140

== ENCOUNTER 2023-10-06 09:43 | Outpatient (RCR) | payer MEDICARE, MEDICAID, SELFPAY ==
--- NOTE | 2024-04-14 11:42 | HP.OTEVAL_ITS ---
Patient's Visit Information Visit Information Visit Information: PARK MARISCAL is a 78 year old M, referred to Occupational Therapy by Dr. Nathen Chang MD, with a diagnosis of LE edema. Date of Evaluation: 10/06/23 Occupational Therapist: Stefany Currie, MICHELAR/Jaimie, CHT Subjective Subjective: This 77 year old male was seen for OT eval with dx of BLE lymphedema. pt also has hx of CHF, PVD. pt states DM among all other issues from pneumonia- Hospitalized 5 days about 6-8 or more weeks ago due to pneumonia. pt did go home with O2. as well as home health. pt using O2 at night for 2-3 hours- pts states she feels she has noticed swelling but with water pills does decrease edema- pt and pts states she does have a pair compression socks but they both can not get them on. ( copper fit) Lymphedema (Circumferential Measure) Mid-foot: right 22cm left 23cm Ankle: right 28cm left 30cm Lower calf: right 30cm left 31cm Largest calf: right 40cm left 40cm Below knee: right 37cm left 37cm Lower Limb Functional Index Lower Extremity Functional Score: 25 Goals Goal: Patient will demonstrate a 20% reduction in edema by discharge: Yes Goal: Patient will demonstrate adequate knowledge of self-massage by the end of the second week.: Yes Goal: Patient will demonstrate adequate knowledge of skin care and precautions by the end of the first week.: Yes Goal: Patient will demonstrate adequate knowledge of therapeutic exercises by discharge.: Yes Goal: Patient will select an appropriate compression garment and demonstrate adequate knowledge of correct donning technique, care and wearing schedule by discharge.: Yes Goal: Patient will voice understanding of need to replace compression garment e very four to six months by discharge.: Yes Rehabilitation General Assessment: pt dem with bilateral LE edema that limits pts with ambulation and driving. Pt would benefit from skilled OT services 3-4 visits to ed. pt on mtg. of LE edema/lymphedema. Pt with today and both were ed. on lymph stimulation ex. initiation at neck and working down to legs- pt and demo understand- therapist also ed, pt on skin care- avoiding sitting for long periods of time ( ed. to get up and move every hour for 15 min) pt and pts receptive- did bring shay compression socks with them- therapist did ed. them on using thick rubber gloves to assist in donning the socks- was receptive and feels she will be able to get them on. Therapist ed. pt and on compression class of 20-30mmHg for medical grade and insurance to possibly cover garment- ( therapist also ed. pt and insurance does not always pay for compression socks) pt and demo understanding. therapist ed. on skin care and precautions. Rehabilitation Potential: Questionable Anticipated Interventions Anticipated Interventions: Education re assistive Equipment, Education re Diagnosis, Education re Life-long lymphedema Management, Education re Skin Care and Precautions, Education re Self Massage Techniques, Education re Correct Donning Tech,Care&Wearing Sched Comp Garments, Caregiver Training and Home Program Other Interventions: velcro closure compression alternatives Visit Plan TEXT: Thank you for the opportunity to evaluate your patient. For Medicare and Medicare HMO plans, please review the plan of care and approve it. It will need to be FAXED BACK to us at [phone] for Medicare purposes. Please let me know if there are questions or concerns regarding this plan of care. Physician Signature: Date:
--- NOTE | 2024-04-14 11:43 | HP.OT.NRP ---
Patient Information Patient Information: PARK MARISCAL was seen in my office for initial evaluation on 10/06/23. The following Plan of Care was established for this patient: Anticipated Interventions Anticipated Interventions: Education re assistive Equipment, Education re Diagnosis, Education re Life-long lymphedema Management, Education re Skin Care and Precautions, Education re Self Massage Techniques, Education re Correct Donning Tech,Care&Wearing Sched Comp Garments, Caregiver Training and Home Program Other Interventions: velcro closure compression alternatives Last Seen Last Seen: This patient was last seen in our office for inital eval on 10/06/23 . Pertinent comments regarding their Occupational therapy will appear below: no further apts scheduled and due to time lapse in services pt is d/c At this point I will be discontinuing this patient from occupational therapy. I would be happy to see this patient again in the future if found appropriate by the physician. Thank you! Stefany Currie, OTR/L, CHT
== END 2023-10-06 19:00 | disposition home or self-care (01) ==
LOC: OT 09:43
PROVIDERS: PCP Family Medicine; Referring Provider Family Medicine; Visit Provider Family Medicine
DX: I89.0 Lymphedema, not elsewhere classified (principal); I50.9 Heart failure, unspecified; I73.9 Peripheral vascular disease, unspecified; G62.9 Polyneuropathy, unspecified
CPT/HCPCS: 97166

== ENCOUNTER → 2023-10-15 | Outpatient (CLI) | payer MEDICARE, MEDICAID, SELFPAY ==
[2023-10-15 15:24] LABS: Absolute Lymphocyte Count 1.34 X10^3/uL (0.83-4.51); Absolute Neutrophil Count 4.7 X10^3/uL (2.0-7.7); Basophil# 0.04 X10^3/uL; Basophil% 0.6 % (0-1); Eosinophil# 0.24 X10^3/uL; Eosinophils% 3.4 % (0-5); Hematocrit 43.1 % (40-54); Hemoglobin 13.7 g/dL (13.0-16.5); Lymphocyte # 1.34 X10^3/ul (0.83-4.51); Lymphocyte % 18.8 % (19-41); Mean Corp Hgb Conc 31.8 g/dL (32-36); Mean Corpuscular Hgb 28.9 pg (27.0-32.0); Mean Corpuscular Volume 90.9 fL (80-94); Monocyte# 0.78 X10^3/uL; NRBC Flagged by Analyzer 0 % (0-5); Neutrophil # 4.67 X10^3/uL (2.7-7.7); Neutrophil % 65.6 % (47-70); Platelet Count 182 K/mm3 (150-450); RBC Distribution Width CV 14.4 % (11.6-14.6); RBC Distribution Width SD 47.9 fl (35.1-43.9); Red Blood Count 4.74 M/mm3 (4.6-6.2); White Blood Count 7.1 K/mm3 (4.4-11.0)
[2023-10-15 15:46] LABS: ALB/GLOB Ratio 0.8 RATIO (0.9-2.4); AST(SGOT) 25 U/L (15-37); Alanine Aminotransfer ALT/SGPT 21 U/L (16-61); Alkaline Phosphatase 62 U/L (45-117); Anion Gap 6 (5-15); BUN 44 mg/dL (7-18); Calcium,Total 9.6 mg/dL (8.5-10.1); Chloride 100 mmol/L (98-107); Creatinine, Serum 2.45 mg/dL (0.70-1.30); EST Glomerular Filtration Rate 27 mL/min (>60); Est Glom Filt Rate - Afr Amer 33 mL/min (>60); Glucose 240 mg/dL (74-106); Potassium 4.5 mmol/L (3.5-5.1); Sodium Level 135 mmol/L (136-145)
== END | disposition home or self-care (01) ==
LOC: MFPLAB 11:58
PROVIDERS: PCP Family Medicine; Visit Provider Family Medicine
DX: I50.30 Unspecified diastolic (congestive) heart failure (principal); E11.22 Type 2 diabetes mellitus with diabetic chronic kidney disease; E11.39 Type 2 diabetes mellitus with other diabetic ophthalmic complication; N18.30 Chronic kidney disease, stage 3 unspecified
CPT/HCPCS: 36415; 80053; 82306; 83036; 85025

== ENCOUNTER → 2024-02-16 | Outpatient (CLI) | payer MEDICARE, MEDICAID, SELFPAY ==
--- NOTE | 2024-02-16 11:45 | RAD_ITS ---
INDICATION: Injury EXAMINATION/TECHNIQUE: X-RAY - RIGHT FOOT XR Toes 3 VIEWS COMPARISON: FINDINGS: SOFT TISSUES: No soft tissue swelling or gas. No radiopaque foreign body. BONES/JOINTS: Probable nondisplaced fracture of the base of the distal phalanx of the first toe. Normal alignment. Preservation of the joint space.. No sclerotic or destructive changes observed. RAD/Toe(s) Min 2 Views IMPRESSION: Probable nondisplaced fracture of the base of the distal phalanx of the first toe. Electronically Signed: Yung Gamble DO at 9:48 EST Reading Location ID and State: [facility] / [place] Tel [phone], Service support ,
== END | disposition home or self-care (01) ==
PROVIDERS: PCP Family Medicine; Referring Provider Family Medicine; Visit Provider Family Medicine
DX: M79.676 Pain in unspecified toe(s) (principal)
CPT/HCPCS: 73660

== ENCOUNTER → 2024-06-06 | Outpatient (CLI) | payer MEDICARE, MEDICAID, SELFPAY ==
[2024-06-06 08:45] LABS: Absolute Lymphocyte Count 1.23 X10^3/uL (0.83-4.51); Basophil# 0.04 X10^3/uL; Basophil% 0.4 % (0-1); Eosinophil# 0.04 X10^3/uL; Eosinophils% 0.4 % (0-5); Hematocrit 42.6 % (40-54); Hemoglobin 13.9 g/dL (13.0-16.5); Lymphocyte # 1.23 X10^3/ul (0.83-4.51); Lymphocyte % 11.5 % (19-41); Mean Corp Hgb Conc 32.6 g/dL (32-36); Mean Corpuscular Volume 88.9 fL (80-94); Monocyte# 0.35 X10^3/uL; Monocyte% 3.3 % (0-10); NRBC Flagged by Analyzer 0 % (0-5); Neutrophil # 8.98 X10^3/uL (2.7-7.7); Neutrophil % 83.6 % (47-70); Platelet Count 232 K/mm3 (150-450); RBC Distribution Width CV 12.8 % (11.6-14.6); RBC Distribution Width SD 41.2 fl (35.1-43.9); Red Blood Count 4.79 M/mm3 (4.6-6.2); White Blood Count 10.7 K/mm3 (4.4-11.0)
[2024-06-06 09:37] LABS: CORTISOL AM 1.84 ug/dL (6.02-18.40)
[2024-06-06 10:24] LABS: ALB/GLOB Ratio 1.1 RATIO (0.9-2.4); AST(SGOT) 28 U/L (<=37); Alanine Aminotransfer ALT/SGPT 18 U/L (<=46); Albumin, Serum 3.5 g/dL (3.4-4.8); Alkaline Phosphatase 63 U/L (40-129); Anion Gap 14 (5-15); BUN 50 mg/dL (4-19); Calcium 9.3 mg/dL (7.6-11.0); Carbon Dioxide 21.4 mmol/L (22.0-29.0); Chloride 99 mmol/L (96-108); Creatinine, Serum 2.79 mg/dL (0.70-1.20); EST Glomerular Filtration Rate 22 (>60); Globulin 3.2 g/dL (2.2-4.2); Potassium 6.4 mmol/L (3.3-5.1); Protein, Total 6.6 g/dL (5.9-8.4); Sodium Level 134 mmol/L (133-145); Total Bilirubin 0.24 mg/dL (0.00-1.30)
[2024-06-06 10:31] LABS: Microalbumin:Creatinine Ratio 24475.3 mg/g CRE
[2024-06-07 05:33] LABS: Glucose 505 mg/dL (70-99)
[2024-06-07 15:08] LABS: Adrenocorticotropic Hormone 10.9 pg/mL (7.2-63.3)
== END | disposition home or self-care (01) ==
PROVIDERS: PCP Family Medicine; Referring Provider Family Medicine; Visit Provider Family Medicine
DX: J44.9 Chronic obstructive pulmonary disease, unspecified (principal); E11.39 Type 2 diabetes mellitus with other diabetic ophthalmic complication
CPT/HCPCS: 36415; 80053; 82024; 82043; 82533; 82570; 85025

== ENCOUNTER → 2024-06-08 | Outpatient (CLI) | payer MEDICARE, MEDICAID, SELFPAY ==
[2024-06-08 10:09] LABS: Absolute Lymphocyte Count 1.39 X10^3/uL (0.83-4.51); Absolute Neutrophil Count 5.2 X10^3/uL (2.0-7.7); Basophil# 0.06 X10^3/uL; Basophil% 0.8 % (0-1); Eosinophils% 2.7 % (0-5); Hematocrit 41.6 % (40-54); Hemoglobin 13.6 g/dL (13.0-16.5); Lymphocyte # 1.39 X10^3/ul (0.83-4.51); Lymphocyte % 18.7 % (19-41); Mean Corp Hgb Conc 32.7 g/dL (32-36); Mean Corpuscular Hgb 29.4 pg (27.0-32.0); Mean Corpuscular Volume 89.8 fL (80-94); Mean Platelet Vol. 10.4 fl (6.2-12.0); Monocyte# 0.58 X10^3/uL; Monocyte% 7.8 % (0-10); NRBC Flagged by Analyzer 0 % (0-5); Neutrophil # 5.16 X10^3/uL (2.7-7.7); Neutrophil % 69.3 % (47-70); Platelet Count 242 K/mm3 (150-450); RBC Distribution Width CV 13.2 % (11.6-14.6); RBC Distribution Width SD 42.7 fl (35.1-43.9); Red Blood Count 4.63 M/mm3 (4.6-6.2); White Blood Count 7.4 K/mm3 (4.4-11.0)
[2024-06-08 11:59] LABS: ALB/GLOB Ratio 1.9 RATIO (0.9-2.4); AST(SGOT) 22 U/L (<=37); Alanine Aminotransfer ALT/SGPT 17 U/L (<=46); Albumin, Serum 3.1 g/dL (3.4-4.8); Alkaline Phosphatase 56 U/L (40-129); Anion Gap 14 (5-15); BUN 41 mg/dL (4-19); BUN/Creat Ratio 14.8 RATIO (10-20); Calcium,Total 8.8 mg/dL (7.6-11.0); Carbon Dioxide 23.1 mmol/L (21.0-32.0); Chloride 97 mmol/L (98-108); Creatinine, Serum 2.77 mg/dL (0.70-1.20); EST Glomerular Filtration Rate 23 (>60); Globulin 1.6 g/dL (2.2-4.2); Glucose 384 mg/dL (70-99); Potassium 5.4 mmol/L (3.3-5.1); Protein, Total 4.8 g/dL (5.9-8.4); Sodium Level 134 mmol/L (133-145); Total Bilirubin 0.25 mg/dL (0.00-1.30)
[2024-06-09 14:08] LABS: Adrenocorticotropic Hormone 39.5 pg/mL (7.2-63.3)
== END | disposition home or self-care (01) ==
LOC: MFPLAB 08:48
PROVIDERS: PCP Family Medicine; Referring Provider Family Medicine; Visit Provider Family Medicine
DX: E24.9 Cushing's syndrome, unspecified (principal)
CPT/HCPCS: 36415; 80053; 82024; 82533; 85025

== ENCOUNTER → 2024-06-13 | Outpatient (CLI) | payer MEDICARE, MEDICAID, SELFPAY ==
[2024-06-13 13:56] LABS: Anion Gap 11 (5-15); BUN 42 mg/dL (4-19); BUN/Creat Ratio 17.4 RATIO (10-20); Calcium,Total 9.5 mg/dL (7.6-11.0); Carbon Dioxide 25.6 mmol/L (21.0-32.0); Chloride 101 mmol/L (98-108); Creatinine, Serum 2.44 mg/dL (0.70-1.20); EST Glomerular Filtration Rate 26 (>60); Glucose 336 mg/dL (70-99); Potassium 5.3 mmol/L (3.3-5.1); Sodium Level 137 mmol/L (133-145)
== END | disposition home or self-care (01) ==
LOC: MFPLAB 08:51
PROVIDERS: PCP Family Medicine; Visit Provider Family Medicine
DX: E87.6 Hypokalemia (principal)
CPT/HCPCS: 36415; 80048

== ENCOUNTER → 2024-07-05 | Outpatient (CLI) | payer MEDICAID, MEDICARE, SELFPAY ==
[2024-07-05 12:46] LABS: ALB/GLOB Ratio 1.3 RATIO (0.9-2.4); AST(SGOT) 36 U/L (<=37); Alanine Aminotransfer ALT/SGPT 24 U/L (<=46); Albumin, Serum 3.8 g/dL (3.4-4.8); Alkaline Phosphatase 65 U/L (40-129); Anion Gap 11 (5-15); BUN 40 mg/dL (4-19); BUN/Creat Ratio 14.6 RATIO (10-20); Calcium,Total 9.4 mg/dL (7.6-11.0); Carbon Dioxide 26.3 mmol/L (21.0-32.0); Chloride 100 mmol/L (98-108); Creatinine, Serum 2.77 mg/dL (0.70-1.20); EST Glomerular Filtration Rate 23 (>60); Globulin 3.1 g/dL (2.2-4.2); Glucose 348 mg/dL (70-99); Magnesium 2.3 mg/dL (1.5-2.2); Potassium 5.5 mmol/L (3.3-5.1); Protein, Total 6.9 g/dL (5.9-8.4); Sodium Level 137 mmol/L (133-145); Total Bilirubin 0.31 mg/dL (0.00-1.30)
== END | disposition home or self-care (01) ==
LOC: MTLAB 10:52
PROVIDERS: PCP Family Medicine; Referring Provider Family Medicine; Visit Provider Family Medicine
DX: E11.40 Type 2 diabetes mellitus with diabetic neuropathy, unspecified (principal)
CPT/HCPCS: 36415; 80053; 83735

== ENCOUNTER → 2024-08-05 | Outpatient (CLI) | payer MEDICARE, MEDICAID, SELFPAY ==
--- NOTE | 2024-08-05 10:10 | RAD_ITS ---
PROCEDURE: CHEST PA AND LATERAL 08/05/2024 REASON FOR EXAM: BRONCHITIS TECHNIQUE: Frontal and lateral views of the chest. COMPARISON: 08/12/2023 FINDINGS: The lungs appear clear. Pulmonary vascularity appears within limits. No pleural effusion. The cardiac and mediastinal contours appear within limits. Atherosclerotic change at the aortic arch again noted. lead level designer AICD again noted. The visualized osseous structures appear within limits. RAD/Chest PA and Lateral IMPRESSION: No evidence of acute disease. Reading Location: [id number]
== END | disposition home or self-care (01) ==
LOC: MTRAD 10:08
PROVIDERS: PCP Family Medicine
DX: J40 Bronchitis, not specified as acute or chronic (principal)
CPT/HCPCS: 71046

== ENCOUNTER → 2024-08-30 | Outpatient (CLI) | payer MEDICARE, MEDICAID, SELFPAY ==
[2024-08-30 12:48] LABS: ALB/GLOB Ratio 1.2 RATIO (0.9-2.4); AST(SGOT) 28 U/L (<=37); Alanine Aminotransfer ALT/SGPT 24 U/L (<=46); Albumin, Serum 3.4 g/dL (3.4-4.8); Alkaline Phosphatase 51 U/L (40-129); Anion Gap 11 (5-15); BUN 34 mg/dL (4-19); BUN/Creat Ratio 13.5 RATIO (10-20); Calcium,Total 9.3 mg/dL (7.6-11.0); Chloride 101 mmol/L (98-108); Creatinine, Serum 2.49 mg/dL (0.70-1.20); EST Glomerular Filtration Rate 26 (>60); Globulin 2.9 g/dL (2.2-4.2); Glucose 318 mg/dL (70-99); Magnesium 2.3 mg/dL (1.5-2.2); Potassium 5.1 mmol/L (3.3-5.1); Protein, Total 6.4 g/dL (5.9-8.4); Sodium Level 136 mmol/L (133-145); Total Bilirubin 0.29 mg/dL (0.00-1.30)
== END | disposition home or self-care (01) ==
LOC: MFPLAB 10:46
PROVIDERS: PCP Family Medicine; Referring Provider Family Medicine; Visit Provider Family Medicine
DX: E24.9 Cushing's syndrome, unspecified (principal)
CPT/HCPCS: 36415; 80053; 83735

== ENCOUNTER → 2024-09-09 | Outpatient (CLI) | payer MEDICARE, MEDICAID, SELFPAY ==
[2024-09-09 13:06] LABS: Anion Gap 12 (5-15); BUN 36 mg/dL (4-19); BUN/Creat Ratio 13.8 RATIO (10-20); Calcium,Total 9.5 mg/dL (7.6-11.0); Carbon Dioxide 23.8 mmol/L (21.0-32.0); Chloride 102 mmol/L (98-108); Creatinine, Serum 2.61 mg/dL (0.70-1.20); EST Glomerular Filtration Rate 24 (>60); Glucose 268 mg/dL (70-99); Potassium 4.4 mmol/L (3.3-5.1); Sodium Level 138 mmol/L (133-145)
== END | disposition home or self-care (01) ==
LOC: MFPLAB 09:42
PROVIDERS: PCP Family Medicine; Referring Provider Family Medicine; Visit Provider Family Medicine
DX: E24.9 Cushing's syndrome, unspecified (principal)
CPT/HCPCS: 36415; 80048

== ENCOUNTER → 2024-09-12 | Outpatient (CLI) | payer MEDICARE, MEDICAID, SELFPAY ==
[2024-09-12 15:54] LABS: Anion Gap 13 (5-15); BUN 36 mg/dL (4-19); Calcium,Total 9.6 mg/dL (7.6-11.0); Carbon Dioxide 25.3 mmol/L (21.0-32.0); Chloride 102 mmol/L (98-108); Creatinine, Serum 2.96 mg/dL (0.70-1.20); EST Glomerular Filtration Rate 21 (>60); Glucose 285 mg/dL (70-99); Potassium 4.6 mmol/L (3.3-5.1); Sodium Level 140 mmol/L (133-145)
== END | disposition home or self-care (01) ==
LOC: MFPLAB 13:36
PROVIDERS: PCP Family Medicine; Referring Provider Family Medicine; Visit Provider Family Medicine
DX: E11.9 Type 2 diabetes mellitus without complications (principal)
CPT/HCPCS: 36415; 80048

== ENCOUNTER → 2024-09-19 | Outpatient (CLI) | payer MEDICARE, MEDICAID, SELFPAY ==
--- OUTSIDE RECORDS SUMMARY | 2024-09-19 22:21 | XMS RPT_ITS | CCD ---
Author Organization [facility] Care Team Providers Care Core Dropper Name Role Phone Roof WIRELESS SALES EXPERT, Dequan Choe Unavailable Priscilla RN, Oralia Baltazar Unavailable Unavailable Nathen Chang Referring Unavailable Nathen Chang Primary Care Unavailable Kannan Da Silva Attending Unavailable Dr. Nathen Chang Primary Care Provider Dr. Nathen Chang Referring Provider Ashlee Harper Attending Provider Unavailable Dr. Nathen Chang Primary Care Provider Dr. Nathen Chang Referring Provider Dr. Chano Simms Attending Provider Dr. Fernandez Dukes Emergency Provider Dr. Nathen Yen Admit Provider Dr. Nathen Yen Attending Provider Dr. Nathen Yen Other Provider Dr. Nathen Chang Primary Care Provider Dr. Nathen Chang Referring Provider [phone] Dr. Chano Simms Attending Provider Dr. Fernandez Dukes Emergency Provider Dr. Nathen Yen Admit Provider Dr. Nathen Yen Attending Provider Dr. Nathen Yen Other Provider Dr. Eren Mendez Attending Provider Dr. Eren Mendez Other Provider Ashlee Harper Attending Provider Unavailable Dr. Alexys Sharif Attending Provider Dr. Nathen Chang Primary Care Provider Dr. Chano Simms Attending Provider [phone] Chano Simms Referring Provider 1([facility])-[phone] Nathen Del Castillo Attending Provider Dr. Nathen Chang Referring Provider 1([facility])[phone] Ashlee Harper Attending Provider Unavailable Dr. Nathen Chang Primary Care Provider 1([facility])[phone] Dr. Nathen Chang Referring Provider Dr. Chano Simms Attending Provider 1([facility])-[phone] Chano Simms Referring Provider 1([facility])-[phone] Roof WIRELESS SALES EXPERT, WIRELESS SALES EXPERT-C Dequan H Referring Provider Roof WIRELESS SALES EXPERT, WIRELESS SALES EXPERT-C Dequan H Other Provider Roof WIRELESS SALES EXPERT, WIRELESS SALES EXPERT-C Dequan H Attending Provider 1([facility])[phone] Dr. Nathen Chang Primary Care Provider 1([facility])[phone] Dr. Solomon Griffiths Emergency Provider 1([facility])[phone] Gela Salinas Attending Provider 1([facility])[phone] Dr. Nathen Chang Primary Care Provider 1([facility])[phone] Dr. Chano Simms Attending Provider 1([facility])-[phone] Chano Simms Referring Provider 1([facility])-[phone]. Nathen Chang Primary Care Provider 1([facility])[phone] Dr. Chano Simms Attending Provider 1([facility])-[phone] Chano Simms Referring Provider 1([facility])-[phone]. Nathen Chang Primary Care Provider Dr. Chano Simms Attending Provider 1([facility])[phone] Solomon Griffiths Emergency Provider 1([facility])[phone] Gela Salinas Admit Provider Dr. Gela Salinas Other Provider Dr. Amanda Wick Attending Provider 1([facility])[phone] Dr. Amanda Wick Other Provider 1([facility])[phone] Bernardo ARCE, Dr. Sena Primary Care Provider [phone] Demi ARCE, Dr. Madden Attending Provider Demi ARCE, Dr. Madden Referring Provider Bernardo ARCE, Dr. Sena Attending Provider [phone] Bernardo ARCE, Dr. Sena Referring Provider [facility] WIRELESS SALES EXPERT-C, Parvez Attending Provider [facility] WIRELESS SALES EXPERT-C, Parvez Referring Provider Bernardo ARCE, Dr. Sena Primary Care Provider Chang, Nathen Primary Care Unavailable Chang, Nathen Referring Unavailable Chang, Nathen Attending Unavailable Chang, Nathen Primary Care Unavailable Hcang, Nathen Attending Unavailable Chang, Nathen Referring Unavailable Chang, Nathen Primary Care Unavailable Chang, Nathen Attending Unavailable [place] WIRELESS SALES EXPERT, Parvez Referring Unavailable [place] WIRELESS SALES EXPERT, Parvez Attending Unavailable Chang, Nathen Primary Care Unavailable Chang, Nathen Referring Unavailable Chang, Nathen Primary Care Unavailable Chang, Nathen Attending Unavailable Chang, Nathen Attending Unavailable Chang, Nathen Referring Unavailable Chang, Nathen Primary Care Unavailable Chang, Nathen Attending Unavailable Chang, Nathen Primary Care Unavailable Chang, Nathen Referring Unavailable Chang, Nathen Primary Care Unavailable Demi, [place] Attending Unavailable Demi, Chano Referring Unavailable Chang, Nathen Primary Care Unavailable Demi, [place] Referring Unavailable Demi, Chano Attending Unavailable Chang, Nathen Primary Care Unavailable Chang, Nathen Referring Unavailable Chang, Nathen Attending Unavailable Chang, Nathen Primary Care Unavailable Ryan, Chalon Referring Unavailable Ryan, Chalon Attending Unavailable Chang, Nathen Primary Care Unavailable Chang, Nathen Referring Unavailable Chang, Nathen Attending Unavailable Chang, Nathen Primary Care Unavailable Demi, [place] Referring Unavailable Demi, [place] Attending Unavailable Chang, Nathen Primary Care Unavailable Chang, Nathen Referring Unavailable Andrea Farris Attending Unavailable Chang, Nathen Primary Care Unavailable Chang, Nathen Attending Unavailable Allergies Allergy Classification Reported Allergen(s) Allergy Type Date of Onset Reaction(s) Facility (2 sources) clopidogrel Drug Allergy 6 low platelets [facility] Work Phone: (4 sources) NKDA; Translations: [NKDA] allergy to substance 6 [facility] Work Phone: (20 sources) Amiodarone Drug Allergy 2 significant effect on lung function per PFT 09/19/17 [facility] (1 source) Amiodarone Drug Allergy 4 [facility] Repository Medications Current Medications Medication Drug Class(es) Dates Sig (Normalized) Sig (Original) acetaminophen 500 mg oral tablet (20 sources) Start: 10-22-2021 take 2 tablets by mouth every six hours as needed for pain Acetaminophen (Tylenol Extra Strength) 500 mg tablet Active 1000 mg PO EVERY 6 HOURS as needed for PAIN October 22, 2021 12:00am 120 actuat albuterol 0.1 mg/actuat / ipratropium bromide 0.02 mg/actuat inhalation spray (8 sources) Anticholinergic, beta2-Adrenergic Agonist Start: 08-18-2023 take 20-100 ug by inhalation every six hours as needed Ipratropium-Albute rol (Combivent Respimat) 20-100 mcg/actuation mist Active 2 NMA INHALATION EVERY 6 HOURS as needed for shortness of breath or wheezing August 18, 2023 12:12pm allopurinol 100 mg oral tablet (2 sources) Xanthine Oxidase Inhibitor Start: 01-15-2021 take 100 mg by mouth twice daily Allopurinol Active 100 MG PO TWICE A DAY January 15, 2021 12:00am amoxicillin 500 mg / clavulanate 125 mg oral tablet (20 sources) Penicillin-class Antibacterial Start: 08-18-2023 Amoxicillin-Pot Clavulanate (Augmentin) 500-125 mg tablet Active 1 {tbl} PO TWICE A DAY 17 10August 18, 2023 12:00am Start: 09-03-2020 End: 09-13-2020 Amoxicillin-Pot Clavulanate (Augmentin) 875-125 mg tablet Discontinued 1 {tbl} PO Q12H 23 01September 03, 2020 12:00am September 12, 2020 12:00am September 13, 2020 12:01am apixaban 2.5 mg oral tablet (20 sources) Factor Xa Inhibitor Start: 07-29-2024 End: 08-02-2024 take 1 tablet by mouth twice daily Apixaban (Eliquis) 2.5 mg tablet Active 2.5 mg PO TWICE A DAY 180 August 02, 2024 11:42am Start: 04-09-2023 End: 07-29-2024 take 1 tablet by mouth twice daily Apixaban (Eliquis) 5 mg tablet Discontinued 5 mg PO TWICE A DAY 180 April 28, 2024 9:05am July 29, 2024 6:27pm cholecalciferol 0.125 mg oral tablet (20 sources) Vitamin D Start: 08-12-2023 take 1 tablet by mouth once daily Cholecalciferol (Vitamin D3) 125 mcg (5,000 unit) tablet Active 125 ug PO DAILY August 12, 2023 12:00am Start: 01-15-2021 End: 08-12-2023 take 1 capsule by mouth once daily Cholecalciferol (Vitamin D3) 125 mcg (5,000 unit) capsule Discontinued 125 ug PO DAILY January 15, 2021 12:00am August 12, 2023 10:41am clopidogrel 75 mg oral tablet (20 sources) [id number] Platelet Inhibitor Start: 08-06-2023 take 1 tablet by mouth once daily Clopidogrel 75 mg tablet Active 75 mg PO DAILY August 06, 2023 12:00am Start: 07-20-2022 End: 04-09-2023 take 1 tablet by mouth once daily Clopidogrel 75 mg tablet Discontinued 75 mg PO DAILY July 20, 2022 12:00am April 09, 2023 5:46pm 12 hr dextromethorphan hydrobromide 30 mg / guaiFENesin 600 mg extended release oral tablet (8 sources) Uncompetitive X-oxgchq-Z-aspartate Receptor Antagonist, Sigma-1 Agonist Start: 08-18-2023 Dextromethorphan-Guaifenesin (Mucinex Dm) 30-600 mg Tablet Extended Release 12 Hr Active 2 {tbl} PO TWICE A DAY 28 August 18, 2023 12:00am fexofenadine / Pseudoephedrine (16 sources) alpha-Adrenergic Agonist, Histamine-1 Receptor Antagonist Start: 01-20-2016 take 1 tablet by mouth once daily Fexofenadine-Pseudoephedrine Active 1 TABLET PO DAILY January 20, 2016 12:00am Start: 01-20-2016 take 1 tablet by love once daily Fexofenadine-Pseudoephedrine Active 1 TA B.SR PO DAILY January 19, 2016 11:00pm Start: 01-20-2016 take 1 tablet by love th once daily Fexofenadine-Pseudoephedrine Active 1 TA B.SR PO DAILY January 20, 2016 12:00am Fexofenadine-Pseudoephedrine 1 TAB.SR tablet extended release 24 hr (8 sources) Start: 01-20-2016 take 1 tablet by mouth every twenty-four hours as needed Fexofenadine-Pseudoephedrine 1 TAB.SR tablet extended release 24 hr Active 1 {tbl} PO DAILY as needed for ALLERGIES January 20, 2016 12:00am furosemide 40 mg oral tablet (20 sources) Loop Diur etic Start: 08-18-2023 take 1 tablet by mouth once daily Furosemide (Lasix) 40 mg tablet Active 40 mg PO DAILY August 18, 2023 12:00am Start: 08-12-2023 End: 08-18-2023 take 1 tablet by mouth once daily Furosemide (Lasix) 20 mg tablet Discontinued 20 mg PO DAILY 10 10August 12, 2023 12:00am August 18, 2023 12:10pm Start: 10-22-2021 take 40 mg by mouth twice gustavo y Furosemide Active 40 MG PO TWICE A DAY October 22, 2021 7:34pm Start: 01-15-2021 End: 01-15-2021 take 1 tablet by mouth twice daily Furosemide 40 mg tablet Discontinued 40 mg PO TWICE A DAY January 15, 2021 3:49pm January 15, 2021 3:59pm Start: 07-26-2018 End: 10-22-2021 take 1 tablet by mouth once daily Furosemide 40 mg tablet Discontinued 40 mg PO DAILY January 15, 2021 3:59pm October 22, 2021 7:35pm Start: 08-19-2017 End: 07-26-2018 take 1 tablet by mouth twice daily Furosemide 40 mg tablet Discontinued 40 mg PO TWICE A DAY August 19, 2017 12:00am July 26, 2018 2:42pm Start: 08-11-2016 take 1 tablet by love th twice daily LASIX 40 MG TABS One tablet by mouth twice daily FUROSEMIDE [id number] Christiano Molina MD Start: 01-20-2016 End: 08-19-2017 take 1 tablet by mouth once daily Furosemide 20 MG tablet Discontinued 20 mg PO DAILY January 20, 2016 12:00am August 19, 2017 8:10pm 3 ml insulin aspart, human 100 unt/ml pen injector (20 sources) Insulin Analog Start: 02-24-2020 inject 30 [IU] by subcutaneous injection three times daily at mealtime Insulin Aspart U-100 Active 0 SC 3 TIMES DAILY WITH MEALS February 24, 2020 9:46am 30 units with meal plus SSI subcut 3 times daily with meals; Start: 06-03-2018 End: 02-24-2020 Insulin Aspart U-100 100 UNI TS/ML insulin pen Discontinued 50 U SC 3 TIMES DAILY WITH MEALS June 03, 2018 1:00am February 24, 2020 9:47am Start: 06-03-2018 End: 02-24-2020 Insulin Aspart U-100 Discont inued 50 UNITS SC 3 TIMES DAILY WITH MEALS June 03, 2018 1:00am February 24, 2020 9:47am 3 ml insulin glargine 100 unt/ml pen injector (20 sources) Insulin Analogue Start: 08-18-2023 Insulin Glarg ine 100 unit/mL (3 mL) Insulin Pen Active 50 U SC EVERY EVENING 0 30 August 18, 2023 12:17pm Start: 02-03-2022 Insulin Glargi ne Active 45 UNIT SC DAILY February 03, 2022 2:48pm Start: 10-22-2021 End: 08-18-2023 Insulin Glargine 100 unit/mL (3 mL) Insulin Pen Discontinued 63 U SC EVERY EVENING October 22, 2021 12:00am August 18, 2023 12:17pm Start: 02-24-2020 End: 02-03-2022 Insulin Glargine 100 unit/mL (3 mL) insulin pen Discontinued 36 U SC DAILY February 24, 2020 9:45am February 03, 2022 2:49pm Start: 02-24-2020 End: 02-24-2020 Insulin Glargine 100 unit/mL (3 mL) insulin pen Discontinued 46 U SC TWICE A DAY February 24, 2020 9:12am February 24, 2020 9:47am Start: 10-20-2018 End: 02-24-2020 Insulin Glargine 100 UNITS/M L insulin pen Discontinued 26 U SC TWICE A DAY October 20, 2018 12:00am February 24, 2020 9:13am Start: 10-20-2018 End: 02-24-2020 Insulin Glargine Discontinue d 26 UNITS SC TWICE A DAY October 20, 2018 12:00am February 24, 2020 9:13am Start: 03-12-2018 End: 07-26-2018 Insulin Glargine 100 unit/mL solution Discontinued 26 U SC TWICE A DAY March 12, 2018 12:25pm July 26, 2018 2:42pm Start: 01-24-2016 LANTUS 100 UNI T/ML SOLN as directed INSULIN GLARGINE [id number] Gretchen Marshall RN Start: 01-20-2016 End: 03-12-2018 inject 52 [IU] by subcutaneous injection at bedtime Insulin Glargine 100 UNIT/ML solution Discontinued 52 U SQ AT BEDTIME January 20, 2016 12:00am March 12, 2018 12:27pm 3 ml insulin lispro 100 unt/ml pen injector (20 sources) Insulin Analogue Start: 08-18-2023 Insulin Lispr o (Humalog Kwikpen Insulin) 100 unit/mL insulin pen Active 30 U SC THREE TIMES DAILY BEFORE MEALS 0 August 18, 2023 12:24pm Hold if glucose less than 130 mg/dl Start: 07-20-2022 End: 08-18-2023 Insulin Lispro (Humalog Kwik pen Insulin) 100 unit/mL insulin pen Discontinued 50 U SC THREE TIMES DAILY BEFORE MEALS July 20, 2022 1:13am August 18, 2023 12:24pm Start: 02-03-2022 End: 07-20-2022 Insulin Lispro (Humalog Kwik pen Insulin) 100 unit/mL Insulin Pen Discontinued 30 U SC THREE TIMES DAILY BEFORE MEALS 0 February 03, 2022 12:00am July 20, 2022 1:13am Start: 01-24-2016 HUMALOG 100 UN IT/ML SOLN as directed INSULIN LISPRO (HUMAN) [id number] KOSTAS ResendizSaliva-B.Bif-S.The rm 175 mg Capsule (8 sources) Start: 08-18-2023 take 1 capsule by mouth twice daily SaadSaliva-B.Bif-S.Therm 175 mg Capsule Active 1 NMA PO TWICE A DAY 0 May 14th, 2024 12:00am Probiotic advised with jpfr-yll-siloiej losartan potassium 25 mg ora l tablet (4 sources) Ofelia oten sin 2 Rece ptor Bloc ker Start: 01-20-2016 take 25 mg by mouth once daily Losartan Active 25 MG PO DAILY January 20, 2016 12:00am magnesium oxide 400 mg oral tablet (18 sources) Start: 12-27-2022 take 1 tablet by mouth at bedtime Magnesium Oxide 400 mg magnesium tablet Active 400 mg PO AT BEDTIME December 27, 2022 12:00am Start: 01-24-2016 take 1 tablet by love th once daily MAGNESIUM OXIDE 400 MG CAPS One tablet by mouth daily MAGNESIUM OXIDE [id number] Gretchen Marshall RN Start: 01-20-2016 take 400 mg by mouth once gustavo y Magnesium Oxide Active 400 MG PO DAILY January 20, 2016 12:00am pantoprazole 40 mg delayed release oral tablet (8 sources) Proton Pump Inhibitor Start: 08-18-2023 take 1 tablet by mouth once daily Pantoprazole (Protonix) 40 mg tablet,delayed release (DR/EC) Active 40 mg PO DAILY August 18, 2023 12:00am predniSONE 10 mg oral tablet (8 sources) Start: 08-18-2023 Prednisone 10 mg tablet Active 0 mg PO DAILY August 18, 2023 12:00am Please contact the information source for Taper Schedule details. pyridoxine (11 sources) Start: 12-27-2022 take 1 tablet by mouth three times daily at mealtime Pyridoxine (Vitamin B6) 50 mg tablet Active 50 mg PO 3 TIMES DAILY WITH MEALS December 27, 2022 12:00am Start: 12-27-2022 take 50 mg by mouth three times daily at mealtime Pyridoxine (Vitamin B6) Active 50 MG PO 3 TIMES DAILY WITH MEALS December 27, 2022 12:00am Start: 12-27-2022 take 50 mg by mouth three times daily Pyridoxine (Vitamin B6) Active 50 MG PO THREE TIMES A DAY December 27, 2022 12:00am rosuvastatin calcium 20 mg oral tablet (20 sources) HMG-CoA Reductase Inhibitor Start: 02-03-2022 take 1 tablet by mouth once daily Rosuvastatin 20 mg tablet Active 20 mg PO DAILY February 03, 2022 12:00am levothyroxine sodium 0.1 mg oral tablet (20 sources) l-Thyroxine Start: 08-12-2023 take 1 tablet by mouth once daily Levothyroxine 100 mcg tablet Active 100 ug PO DAILY August 12, 2023 12:00am Start: 08-20-2017 End: 08-12-2023 take 1 capsule by mouth once daily Levothyroxine 100 mcg capsule Discontinued 100 ug PO daily August 20, 2017 12:00am August 12, 2023 10:41am Start: 01-20-2016 End: 08-20-2017 take 1 tablet by mouth once daily Levothyroxine 50 MCG tablet Discontinued 50 ug PO DAILY January 20, 2016 12:00am August 20, 2017 2:57pm vitamin b6 50 mg oral tablet (3 sources) Start: 12-27-2022 take 50 mg by mouth three times daily Pyridoxine (Vitamin B6) Active 50 MG PO THREE TIMES A DAY December 27, 2022 12:00am Completed/Discontinued Medications Medication Drug Class(es) Dates Sig (Normalized) Sig (Original) acetaminophen 325 mg / HYDROcodone bitartrate 5 mg oral tablet (20 sources) Opioid Agonist Start: 01-02-2018 End: 01-07-2018 Hydrocodone-Acetami nophen 1 TABLET tablet Discontinued 1 {tbl} PO EVERY 6 HOURS NEEDED as needed for Pain 18 08January 02, 2018 12:00am January 06, 2018 12:00am January 07, 2018 12:07am Start: 01-02-2018 End: 01-07-2018 take 1 tablet by mouth every six hours as needed Hydrocodone-Acetaminophen Discontinued 1 TABLET PO EVERY 6 HOURS NEEDED 15 January 02, 2018 12:00am January 07, 2018 12:07am amiodarone hydrochloride 200 mg oral tablet (20 sources) Antiarrhythmic Start: 01-22-2016 End: 09-28-2017 take 1 tablet by mouth once daily Amiodarone 200 MG tablet Discontinued 200 mg PO DAILY January 22, 2016 12:00am September 28, 2017 6:29pm aspirin 81 mg delayed release oral tablet (20 sources) Nonsteroidal Anti-inflammatory Drug Start: 01-20-2016 End: 05-04-2023 take 1 tablet by mouth once daily Aspirin 81 MG tablet,delayed release (DR/EC) Discontinued 81 mg PO DAILY January 20, 2016 12:00am May 04, 2023 3:36pm carvedilol 25 mg oral tablet (20 sources) alpha-Adrenergic Carol, beta-Adrenergic Carol Start: 01-15-2021 End: 02-08-2024 take 1 tablet by mouth twice daily Carvedilol 25 mg tablet Discontinued 25 mg PO TWICE A DAY 180 January 28, 2024 12:01pm February 08, 2024 10:55am Start: 07-26-2018 End: 01-15-2021 take 1 tablet by mouth twice daily Carvedilol 12.5 mg tablet Discontinued 12.5 mg PO TWICE A DAY July 26, 2018 12:00am January 15, 2021 3:59pm Start: 01-20-2016 End: 07-26-2018 take 1 tablet by mouth twice daily Carvedilol 6.25 MG tablet Discontinued 6.25 mg PO TWICE A DAY January 20, 2016 12:00am July 26, 2018 2:40pm dexamethasone 6 mg oral tablet (13 sources) Corticosteroid Start: 12-29-2022 End: 08-08-2023 take 1 tablet by mouth once daily Dexamethasone 6 mg tablet Discontinued 6 mg PO DAILY 7 December 29, 2022 12:00am August 08, 2023 12:15pm dicyclomine hydrochloride 10 mg oral capsule (20 sources) Anticholinergic Start: 09-12-2018 End: 09-20-2018 take 2 capsules by mouth three times daily before mealtime Dicyclomine 10 MG capsule Discontinued 20 mg PO THREE TIMES DAILY BEFORE MEALS September 12, 2018 12:00am September 20, 2018 2:51pm Start: 09-12-2018 End: 09-20-2018 take 20 mg by mouth three times daily before mealtime Dicyclomine Discontinued 20 MG PO THREE TIMES DAILY BEFORE MEALS September 12, 2018 12:00am September 20, 2018 2:51pm empagliflozin 10 mg oral tablet (20 sources) Sodium-Glucose Cotransporter 2 Inhibitor Start: 03-13-2017 End: 08-20-2017 take 1 tablet by mouth once daily Empagliflozin (Jardiance) 10 mg tablet Discontinued 10 mg PO daily March 13, 2017 1:00am August 20, 2017 2:54pm fexofenadine hydrochloride 180 mg oral tablet (2 sources) Histamine-1 Receptor Antagonist Start: 02-11-2016 take 1 tablet by mouth once daily STACEY 180 MG TABS One tablet by mouth daily FEXOFENADINE HCL Christiano Molina MD hydrocortisone 10 mg/ml / neomycin 3.5 mg/ml / polymyxin b [id number] unt/ml otic suspension (20 sources) Aminoglycoside Antibacterial, Polymyxin-class Antibacterial, Corticosteroid Start: 09-03-2020 End: 09-13-2020 Neomycin-Polymyxin -Hc 3.5-10,000-1 mg/mL-unit/mL-% drops,suspension Discontinued 3 NMA OTIC Q4H 10 September 03, 2020 12:00am September 12, 2020 12:00am September 13, 2020 12:01am apply to (cotton) wick; replace wick every 24 hours Start: 09-03-2020 End: 09-13-2020 Lyosxsid-Yeobdaorh-Hq Discon tinued 3 DRP OTIC Q4H 10 September 03, 2020 12:00am September 13, 2020 12:01am apply to (cotton) wick; replace wick every 24 hours 3 ml liraglutide 6 mg/ml pen injector (20 sources) GLP-1 Receptor Agonist Start: 08-20-2017 End: 02-24-2020 Liraglutide (Victoza 2-Ryan) 0.6 mg/0.1 mL (18 mg/3 mL) pen injector Discontinued 1.8 mg SC daily August 20, 2017 12:00am February 24, 2020 9:46am pioglitazone 15 mg oral tablet (20 sources) Peroxisome Proliferator Receptor alpha Agonist, Peroxisome Proliferator Receptor gamma Agonist, Thiazolidinedione Start: 08-20-2017 End: 02-24-2020 take 1 tablet by mouth once daily Pioglitazone 15 mg tablet Discontinued 15 mg PO daily August 20, 2017 12:00am February 24, 2020 9:46am polyethylene glycol [id number] [id number] mg / potassium chloride 2970 mg / sodium bicarbonate 6740 mg / sodium chloride 5860 mg / sodium sulfate 27348 mg powder for oral solution (20 sources) Osmotic Laxative Start: 09-02-2018 End: 09-02-2018 take 4000 mL by mouth once Peg 3350-Electrolytes 236-22.74-6.74 -5.86 gram recon soln Discontinued 4000 mL PO ONCE 4000 September 02, 2018 12:00am September 02, 2018 5:01pm until fecal effluent is clear; do not exceed a total volume of 4000 mL Start: 09-02-2018 End: 09-02-2018 take 4000 mL by mouth once Peg 3350-Electrolytes Disco ntinued 4000 ML PO ONCE 4000 September 02, 2018 12:00am September 02, 2018 5:01pm until fecal effluent is clear; do not exceed a total volume of 4000 mL pravastatin sodium 80 mg oral tablet (20 sources) HMG-CoA Reductase Inhibitor Start: 01-20-2016 End: 02-03-2022 take 1 tablet by mouth at bedtime Pravastatin 80 MG tablet Discontinued 80 mg PO AT BEDTIME January 20, 2016 12:00am February 03, 2022 2:47pm Problems Active Problems Problem Classification Problem Date Documented Date Episodic/Chronic Cardiac arrest and ventricular fibrillation (20 sources) Ventricular fibrillation; Translations: [Ventricular fibrillation] Onset: 01-24-2016 01-24-2016 Chronic Cardiac dysrhythmias (20 sources) Ventricular tachycardia; Translations: [Nonsustained ventricular tachycardia ] Onset: 01-24-2016 01-24-2016 Chronic Comment on above: 10/2012, 2015, 2018 Cardiac dysrhythmias (20 sources) Tachycardia; Translations: [Tachycardia, unspecified] 06-04-2018 Episodic Chronic kidney disease (20 sources) Chronic kidney disease; Translations: [Chronic kidney disease, unspecified] Chronic Chronic obstructive pulmonary disease and bronchiectasis (9 sources) Chronic obstructive lung disease; Translations: [Chronic obstructive pulmonary disease, unspecified] Onset: 07-12-2024 08-14-2023 Chronic Chronic obstructive pulmonary disease and bronchiectasis (1 source) Bronchitis, not specified as acute or chronic; Translations: [Bronchitis, not specified as acute or chronic] Onset: 08-11-2024 Episodic Conduction disorders (20 sources) Presence of automatic (implantable) cardiac defibrillator; Translations: [Implantable cardioverter battery end of life] Onset: 04-12-2012 01-24-2016 Chronic Comment on above: [facility] prevention Congestive heart failure; nonhypertensive (20 sources) Unspecified systolic (congestive) heart failure; Translations: [Congestive heart failure] Onset: 06-03-2018 08-12-2023 Chronic Coronary atherosclerosis and other heart disease (20 sources) Atherosclerotic heart disease of [place] coronary artery without angina pectoris; Translations: [Generalized ischemic myocardial dysfunction] Onset: 04-07-2012 01-24-2016 Chronic Diabetes mellitus with complications (20 sources) Polyneuropathy due to type 1 diabetes mellitus; Translations: [Type 1 diabetes mellitus with diabetic polyneuropathy] Onset: 07-11-2024 02-24-2020 Chronic Diabetes mellitus without complication (20 sources) Type 2 diabetes mellitus without complications; Translations: [Diabetes mellitus] Onset: 06-03-2018 11-07-2021 Chronic Disorders of lipid metabolism (20 sources) Hyperlipidemia; Translations: [Hyperlipidemia, unspecified] Onset: 01-24-2016 01-24-2016 Chronic Essential hypertension (20 sources) Hypertensive disorder; Translations: [Essential (primary) hypertension] Onset: 01-24-2016 01-24-2016 Chronic Fluid and electrolyte disorders (20 sources) Dehydration; Translations: [Dehydration] Onset: 06-23-2024 10-30-2021 Episodic Genitourinary congenital anomalies (20 sources) Renal agenesis; 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, 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 Genitourinary symptoms and ill-defined conditions (10 sources) History of chronic renal impairment; Translations: [Personal history of other diseases of urinary system] 08-12-2023 Episodic Malaise and fatigue (20 sources) Asthenia; Translations: [Weakness] 07-20-2022 Episodic Nonspecific chest pain (20 sources) Chest pain; Translations: [Chest pain, unspecified] 06-04-2018 Episodic Other aftercare (2 sources) prison (current) use of insulin; Translations: [intermodal dispatcher (current) use of insulin] Onset: 06-03-2018 Episodic Other aftercare (2 sources) intermodal dispatcher (current) use of aspirin; Translations: [intermodal dispatcher (current) use of aspirin] Onset: 06-03-2018 Episodic Other aftercare (12 sources) Long-term current use of anticoagulant; Translations: [intermodal dispatcher (current) use of anticoagulants] 08-06-2023 Episodic Other aftercare (4 sources) intermodal dispatcher (current) use of anticoagulants; Translations: [Long-term (current) use of anticoagulants] 08-06-2023 Episodic Other and ill-defined heart disease (20 sources) Aneurysm of heart; 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] Onset: 01-24-2016 01-24-2016 Chronic Other circulatory disease (20 sources) H/O: heart disorder; Translations: [Personal history of other diseases of the circulatory system] 06-04-2018 Episodic Other circulatory disease (20 sources) H/O: hypertension; Translations: [Personal history of other diseases of the circulatory system] 02-11-2022 Episodic Other circulatory disease (1 source) Personal history of other diseases of the circulatory system; Translations: [Personal history of other diseases of circulatory system] Episodic Other connective tissue disease (20 sources) Spasm; Translations: [Other muscle spasm] 10-30-2021 Episodic Other diseases of veins and lymphatics (1 source) Lymphedema, not elsewhere classified; Translations: [Lymphedema, not elsewhere classified] Onset: 04-14-2024 Chronic Other ear and sense organ disorders (20 sources) Acute actinic otitis externa; Translations: [Acute actinic otitis externa, left ear] 01-10-2021 Episodic Other ear and sense organ disorders (8 sources) Impacted cerumen; Translations: [Impacted cerumen, bilateral] 01-16-2024 Episodic Other endocrine disorders (20 sources) Hypoglycemia; Translations: [Hypoglycemia, unspecified] 11-15-2021 Chronic Other endocrine disorders (1 source) Denison's syndrome, unspecified; 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, unspecified] Onset: 09-15-2024 Chronic Other lower respiratory disease (10 sources) History of chronic obstructive airway disease; Translations: [Personal history of other diseases of the respiratory system] 08-12-2023 Episodic Other lower respiratory disease (10 sources) Dyspnea; Translations: [Dyspnea, unspecified] 08-12-2023 Episodic Other lower respiratory disease (9 sources) Respiratory insufficiency; Translations: [Other abnormalities of breathing] 08-14-2023 Episodic Other lower respiratory disease (1 source) Other abnormalities of breathing; Translations: [Other pulmonary insufficiency, not elsewhere classified] 08-14-2023 Episodic Other nervous system disorders (12 sources) Unable to walk; Translations: [Difficulty in walking, not elsewhere classified] 08-06-2023 Chronic Other nervous system disorders (4 sources) Difficulty in walking, not elsewhere classified; Translations: [Difficulty in walking] 08-06-2023 Chronic Other nutritional; endocrine; and metabolic disorders (2 sources) Obesity, unspecified; Translations: [Obesity, unspecified] Onset: 06-03-2018 Chronic Other nutritional; endocrine; and metabolic disorders (2 sources) Body mass index (BMI) 32.0-32.9, adult; Translations: [Body mass index (BMI) 32.0-32.9, adult] Onset: 06-03-2018 Chronic Other nutritional; endocrine; and metabolic disorders (20 sources) Fat hypertrophy; Translations: [Localized adiposity] 02-24-2020 Chronic Other nutritional; endocrine; and metabolic disorders (20 sources) Obesity; Translations: [Obesity, unspecified] 02-24-2020 Chronic Other nutritional; endocrine; and metabolic disorders (20 sources) H/O: diabetes mellitus; Translations: [Personal history of other endocrine, nutritional and metabolic disease] 02-11-2022 Episodic Other nutritional; endocrine; and metabolic disorders (1 source) Personal history of other endocrine, nutritional and metabolic disease; Translations: [Personal history of other endocrine, metabolic, and immunity disorders] Episodic Other nutritional; endocrine; and metabolic disorders (13 sources) Adult failure to thrive syndrome; Translations: [Adult failure to thrive] 12-27-2022 Episodic Other nutritional; endocrine; and metabolic disorders (6 sources) Adult failure to thrive; Translations: [Adult failure to thrive] 12-27-2022 Episodic Pneumonia (except that caused by tuberculosis or sexually transmitted disease) (18 sources) Pneumonia; Translations: [Pneumonia, unspecified organism] 08-14-2023 Episodic Residual codes; unclassified (20 sources) History of colonoscopy; Translations: [Other specified postprocedural states] 01-10-2021 Episodic Comment on above: 10/25/18 Residual codes; unclassified (10 sources) Peripheral edema; Translations: [Localized edema] 08-12-2023 Episodic Respiratory failure; insufficiency; arrest (adult) (8 sources) Bdesc-bv-ijzodct respiratory failure; Translations: [Acute and chronic respiratory failure with hypoxia] 08-20-2023 Chronic Substance-related disorders (20 sources) Nicotine dependence; Translations: [Nicotine dependence, cigarettes, uncomplicated] Onset: 01-24-2016 01-24-2016 Chronic Thyroid disorders (20 sources) Hypothyroidism, unspecified; Translations: [Hypothyroidism] Onset: 06-03-2018 02-24-2020 Chronic Transient cerebral ischemia (20 sources) Transient cerebral ischemia; Translations: [Transient cerebral ischemic attack, unspecified] Chronic Unclassified (4 sources) Body mass index (BMI) 34.0-34.9, adult; Translations: [Body mass index (BMI) 33.0-33.9, adult] Onset: 01-24-2016 02-11-2016 Chronic Unclassified (2 sources) Long-term drug therapy; Translations: [Other joint terminal attack controller (current) drug therapy] Onset: 01-24-2016 01-24-2016 Viral infection (20 sources) Disease caused by 2019-nCoV; Translations: [COVID-19] 12-27-2022 Episodic Past or Other Problems Problem Classification Problem Date Documented Date Episodic/Chronic Other connective tissue disease (1 source) Pain in unspecified toe(s); Translations: [Pain in unspecified toe(s)] Onset: 03-15-2024 Episodic Residual codes; unclassified (20 sources) Past history of procedure; Translations: [Other specified postprocedural states] Onset: 10-21-2012 01-10-2021 Episodic Residual codes; unclassified (20 sources) History of cardiac catheterization; Translations: [Other specified postprocedural states] Onset: 01-21-2016 01-10-2021 Episodic Comment on above: Failed PCI-RCA // 013, 01/21/2016 Unclassified (2 sources) Raised TSH level; Translations: [Abnormal results of thyroid function studies] Onset: 08-12-2016 08-12-2016 Episodic Results Test Name Value Interpretation Reference Range Facility Anion gap in Serum or Plasma Ordered By: Nathen Chang on 09-12-2024 Anion gap [Moles/Vol] 13 mmol/L 08-18 [facility] BUN/creatinine ratioOrdered By: Nathen Chang on 09-12-2024 Urea nitrogen/Creatinine [Mass ratio] 12.0 mg/mg 01-23 [facility] Basic Metabolic Profile (BMP )on 09-12-2024 BUN/CRE 12.0 RATIO Normal 01-23 [facility] Comment on above: Order Comment: Order Date: 06/07/24 Order Info: 0667-1 - BMP Order Date: 05/31/24 Order Info: 0786-1 - CMP Performed By: #### L [id number], L3300.1000 #### [facility] [address] [place], [address] Calcium [Mass/Vol] 9.6 mg/dL Normal 7.6-11.0 [facility] Comment on above: Order Comment: Order Date: 06/07/24 Order Info: 0667-1 - BMP Order Date: 05/31/24 Order Info: 0786-1 - CMP Performed By: #### L [id number], [id number] #### [facility] [address] [place], [address] Chloride [Moles/Vol] 102 mmol/L Normal 98-108 [facility] Comment on above: Order Comment: Order Date: 06/07/24 Order Info: 0667- - BMP Order Date: 05/31/24 Order Info: 0786-1 - CMP Performed By: #### L [id number], [id number] #### [facility] [address] [place], [address] CO2 [Moles/Vol] 25.3 mmol/L Normal 21.0-32.0 [facility] Comment on above: Order Comment: Order Date: 06/07/24 Order Info: 0667-1 - BMP Order Date: 05/31/24 Order Info: 0786-1 - CMP Performed By: #### L [id number], [id number] #### [facility] [address] [place], [address] Creatinine [Mass/Vol] 2.96 mg/dL High 0.70-1.20 [facility] Comment on above: Order Comment: Order Date: 06/07/24 Order Info: 0667-1 - BMP Order Date: 05/31/24 Order Info: 0786-1 - CMP Performed By: #### L [id number], [id number] #### [facility] [address] [place], [address] GAP 13 Normal 5-15 [facility] Comment on above: Order Comment: Order Date: 06/07/24 Order Info: 0667-1 - BMP Order Date: 05/31/24 Order Info: 0786-1 - CMP Performed By: #### L [id number], [id number] #### [facility] [address] [place], [address] GFR/1.73 sq M.predicted among non-blacks MDRD (S/P/Bld) [Vol rate/Area] 21 mL/min/{1.73_m2} Low >60 [facility] Comment on above: Order Comment: Order Date: 06/07/24 Order Info: 0667-1 - BMP Order Date: 05/31/24 Order Info: 0786-1 - CMP Result Comment: mL/m in/1.73m2 CKD-EPI Creatinine Equation (2020) Performed By: #### L [id number], [id number] #### [facility] [address] [place], [address] Glucose [Mass/Vol] 285 mg/dL High 70-99 [facility] Comment on above: Order Comment: Order Date: 06/07/24 Order Info: 0667-1 - BMP Order Date: 05/31/24 Order Info: 0786-1 - CMP Performed By: #### L [id number], [id number] #### [facility] [address] [place], [address] Potassium [Moles/Vol] 4.6 mmol/L Normal 3.3-5.1 [facility] Comment on above: Order Comment: Order Date: 06/07/24 Order Info: 0667-1 - BMP Order Date: 05/31/24 Order Info: 0786-1 - CMP Performed By: #### L [id number], [id number] #### [facility] [address] [place], [address] Sodium [Moles/Vol] 140 mmol/L Normal 133-145 [facility] Comment on above: Order Comment: Order Date: 06/07/24 Order Info: 0667-1 - BMP Order Date: 05/31/24 Order Info: 0786-1 - CMP Performed By: #### L [id number], [id number] #### [facility] [address] [place], [place], [address] Urea nitrogen [Mass/Vol] 36 mg/dL High 4-19 [facility] Comment on above: Order Comment: Order Date: 06/07/24 Order Info: 0667-1 - BMP Order Date: 05/31/24 Order Info: 0786-1 - CMP Performed By: #### L [id number], [id number] #### [facility] [address] [place], [address] Carbon dioxide, total [Moles /volume] in Central venous bloodOrdered By: Nathen Chang on 09-12-2024 CO2 [Moles/Vol] 25.3 mmol/L 21.0-32.0 [facility] Chloride assayOrdered By: Rusty Chang on 09-12-2024 Chloride [Moles/Vol] 102 mmol/L 98-108 [facility] Glomerular filtration rate ( GFR) estimation/1.73 sq m using serum, plasma, or whole bOrdered By: Nathen Chang on 09-12-2024 GFR/1.73 sq M.predicted among non-blacks MDRD (S/P/Bld) [Vol rate/Area] 21 mL/min/{1.73_m2} Low >60 [facility] Comment on above: mL/min/1.73m2 CKD-EP I Creatinine Equation (2020) Potassium measurement (mass/ volume)Ordered By: Nathen Chang on 09-12-2024 Potassium (Unsp spec) [Mass/Vol] 4.6 mmol/L 3.3-5.1 [facility] Serum creatinine measurement (mass/volume)Ordered By: Nathen Chang on 09-12-2024 Creatinine [Mass/Vol] 2.96 mg/dL High 0.70-1.20 [facility] Serum glucose measurement (m ass/volume)Ordered By: Nathen Chang on 09-12-2024 Glucose [Mass/Vol] 285 mg/dL High 70-99 [facility] Serum or plasma calcium amadou urement (mass/volume)Ordered By: Nathen Chang on 09-12-2024 Calcium [Mass/Vol] 9.6 mg/dL 7.6-11.0 [facility] Serum or plasma urea nitroge n measurement (mass/volume)Ordered By: Nathen Chang on 09-12-2024 Urea nitrogen [Mass/Vol] 36 mg/dL High 4-19 [facility] Sodium levelOrdered By: Nathen Chang on 09-12-2024 Sodium [Moles/Vol] 140 mmol/L 133-145 [facility] Anion gap in Serum or Plasma Ordered By: Nathen Chang on 09-09-2024 Anion gap [Moles/Vol] 12 mmol/L - [facility] BUN/creatinine ratioOrdered By: Nathen Chang on 09-09-2024 Urea nitrogen/Creatinine [Mass ratio] 13.8 mg/mg 01-23 [facility] Basic Metabolic Profile (BMP )on 09-09-2024 BUN/CRE 13.8 RATIO Normal 01-23 [facility] Comment on above: Order Comment: Inter face Comments: standing order Order Date: 08/09/24 Order Info: 666-04 - BMP standing order Performed By: #### L 500.2500 #### [facility] [address] [facility] [address] (678) Calcium [Mass/Vol] 9.5 mg/dL Normal 7.6-11.0 [facility] Comment on above: Order Comment: Inter face Comments: standing order Order Date: 08/09/24 Order Info: 666-04 - BMP standing order Performed By: #### L 500.2500 #### [facility] [address] [place], [address] Chloride [Moles/Vol] 102 mmol/L Normal 98-108 [facility] Comment on above: Order Comment: Inter face Comments: standing order Order Date: 08/09/24 Order Info: 666-04 - BMP standing order Performed By: #### L 500.2500 #### [facility] [address] [place], [place], [address] CO2 [Moles/Vol] 23.8 mmol/L Normal 21.0-32.0 [facility] Comment on above: Order Comment: Inter face Comments: standing order Order Date: 08/09/24 Order Info: 0667- - BMP standing order Performed By: #### L 500.2500 #### [facility] [address] [place], [address] Creatinine [Mass/Vol] 2.61 mg/dL High 0.70-1.20 [facility] Comment on above: Order Comment: Inter face Comments: standing order Order Date: 08/09/24 Order Info: 666-04 - BMP standing order Performed By: #### L 500.2500 #### [facility] [address] [place], [place], [address] GAP 12 Normal 5-15 [facility] Comment on above: Order Comment: Inter face Comments: standing order Order Date: 08/09/24 Order Info: 666-04 - BMP standing order Performed By: #### L 500.2500 #### [facility] [address] [place], [address] GFR/1.73 sq M.predicted among non-blacks MDRD (S/P/Bld) [Vol rate/Area] 24 mL/min/{1.73_m2} Low >60 [facility] Comment on above: Order Comment: Inter face Comments: standing order Order Date: 08/09/24 Order Info: 0667- - BMP standing order Result Comment: mL/m in/1.73m2 CKD-EPI Creatinine Equation (2020) Performed By: #### L 500.2500 #### [facility] [address] [place], [place], [address] ([phone] Glucose [Mass/Vol] 268 mg/dL High 70-99 [facility] Comment on above: Order Comment: Inter face Comments: standing order Order Date: 08/09/24 Order Info: 06- - BMP standing order Performed By: #### L 500.2500 #### [facility] [address] [place], [place], [address] Potassium [Moles/Vol] 4.4 mmol/L Normal 3.3-5.1 [facility] Comment on above: Order Comment: Inter face Comments: standing order Order Date: 08/09/24 Order Info: 666-04 - [facility] standing order Performed By: #### L 500.2500 #### [facility] [address] [place], [place], [address] Sodium [Moles/Vol] 138 mmol/L Normal 133-145 [facility] Comment on above: Order Comment: Inter face Comments: standing order Order Date: 08/09/24 Order Info: 666-04 [facility] standing order Performed By: #### L 500.2500 #### [facility] [address] [place], [place], [address] Urea nitrogen [Mass/Vol] 36 mg/dL High 4-19 [facility] Comment on above: Order Comment: Inter face Comments: standing order Order Date: 08/09/24 Order Info: 666-04 [facility] standing order Performed By: #### L 500.2500 #### [facility] [address] [place], [place], [address] Carbon dioxide, total [Moles /volume] in Central venous bloodOrdered By: Nathen Chang on 09-09-2024 CO2 [Moles/Vol] 23.8 mmol/L 21.0-32.0 [facility] Chloride assayOrdered By: Rusty Chang on 09-09-2024 Chloride [Moles/Vol] 102 mmol/L 98-108 [facility] Glomerular filtration rate ( GFR) estimation/1.73 sq m using serum, plasma, or whole bOrdered By: Nathen Chang on 09-09-2024 GFR/1.73 sq M.predicted among non-blacks MDRD (S/P/Bld) [Vol rate/Area] 24 mL/min/{1.73_m2} Low >60 [facility] Comment on above: mL/min/1.73m2 CKD-EP I Creatinine Equation (2020) Potassium measurement (mass/ volume)Ordered By: Nathen Chang on 09-09-2024 Potassium (Unsp spec) [Mass/Vol] 4.4 mmol/L 3.3-5.1 [facility] Serum creatinine measurement (mass/volume)Ordered By: Nathen Chang on 09-09-2024 Creatinine [Mass/Vol] 2.61 mg/dL High 0.70-1.20 [facility] Serum glucose measurement (m ass/volume)Ordered By: Nathen Chang on 09-09-2024 Glucose [Mass/Vol] 268 mg/dL High 70-99 [facility] Serum or plasma calcium amadou urement (mass/volume)Ordered By: Nathen Chang on 09-09-2024 Calcium [Mass/Vol] 9.5 mg/dL 7.6-11.0 [facility] Serum or plasma urea nitroge n measurement (mass/volume)Ordered By: Nathen Chang on 09-09-2024 Urea nitrogen [Mass/Vol] 36 mg/dL High 4-19 [facility] Sodium levelOrdered By: Nathen Chang on 09-09-2024 Sodium [Moles/Vol] 138 mmol/L 133-145 [facility] Anion gap in Serum or Plasma Ordered By: Nathen Chang on 08-30-2024 Anion gap [Moles/Vol] 11 mmol/L 5-15 [facility] BUN/creatinine ratioOrdered By: Nathen Chang on 08-30-2024 Urea nitrogen/Creatinine [Mass ratio] 13.5 mg/mg 10-20 [facility] Bilirubin, totalOrdered By: Nathen Chang on 08-30-2024 Bilirubin [Mass/Vol] 0.29 mg/dL 0.00-1.30 [facility] Carbon dioxide, total [Moles /volume] in Central venous bloodOrdered By: Nathen Chang on 08-30-2024 CO2 [Moles/Vol] 24.0 mmol/L 21.0-32.0 [facility] Chloride assayOrdered By: Rusty Chang on 08-30-2024 Chloride [Moles/Vol] 101 mmol/L 98-108 [facility] Comprehensive Metabolic Prof ilon 08-30-2024 Albumin [Mass/Vol] 3.4 g/dL Normal 3.4-4.8 [facility] Comment on above: Performed By: #### L 500.4050, [id number] #### [facility] [address] [place], [address] Albumin/Globulin [Mass ratio] 1.2 {ratio} Normal 0.9-2.4 [facility] Comment on above: Performed By: #### L 500.4050, [id number] #### [facility] [address] [place], [address] ALK PHOS 51 U/L Normal 40-129 [facility] Comment on above: Performed By: #### L 500.4050, [id number] #### [facility] [address] [place], [address] ALT [Catalytic activity/Vol] 24 U/L Normal <=46 [facility] Comment on above: Performed By: #### L 500.4050, [id number] #### [facility] [address] [place], [address] AST [Catalytic activity/Vol] 28 U/L Normal <=37 [facility] Comment on above: Performed By: #### L 500.4050, [id number] #### [facility] [address] [place], [address] Bilirubin [Mass/Vol] 0.29 mg/dL Normal 0.00-1.30 [facility] Comment on above: Performed By: #### L 500.4050, [id number] #### [facility] [address] [place], [address] BUN/CRE 13.5 RATIO Normal 10-20 [facility] Comment on above: Performed By: #### L 500.4050, [id number] #### [facility] [address] [place], [address] Calcium [Mass/Vol] 9.3 mg/dL Normal 7.6-11.0 [facility] Comment on above: Performed By: #### L 500.4050, [id number] #### [facility] [address] [place], [address] Chloride [Moles/Vol] 101 mmol/L Normal 98-108 [facility] Comment on above: Performed By: #### L 500.4050, [id number] #### [facility] [address] [place], [address] CO2 [Moles/Vol] 24.0 mmol/L Normal 21.0-32.0 [facility] Comment on above: Performed By: #### L 500.4050, [id number] #### [facility] [address] [place], [address] Creatinine [Mass/Vol] 2.49 mg/dL High 0.70-1.20 [facility] Comment on above: Performed By: #### L 500.4050, [id number] #### [facility] [address] [place], [address] GAP 11 Normal 5-15 [facility] Comment on above: Performed By: #### L 500.4050, [id number] #### [facility] [address] [place], [address] GFR/1.73 sq M.predicted among non-blacks MDRD (S/P/Bld) [Vol rate/Area] 26 mL/min/{1.73_m2} Low >60 [facility] Comment on above: Result Comment: mL/m in/1.73m2 CKD-EPI Creatinine Equation (2020) Performed By: #### L 500.4050, [id number] #### [facility] [address] [place], [address] Globulin (S) [Mass/Vol] 2.9 g/dL Normal 2.2-4.2 [facility] Comment on above: Performed By: #### L 500.4050, [id number] #### [facility] [address] [place], [address] Glucose [Mass/Vol] 318 mg/dL High 70-99 [facility] Comment on above: Performed By: #### L 500.4050, [id number] #### [facility] [address] [place], [address] Potassium [Moles/Vol] 5.1 mmol/L Normal 3.3-5.1 [facility] Comment on above: Performed By: #### L 500.4050, [id number] #### [facility] [address] [place], [address] Sodium [Moles/Vol] 136 mmol/L Normal 133-145 [facility] Comment on above: Performed By: #### L 500.4050, [id number] #### [facility] [facility] [address] [place], [address] T PROT 6.4 g/dL Normal 5.9-8.4 [facility] Comment on above: Performed By: #### L 500.4050, L501.5200 #### [facility] [address] [place], [address] Urea nitrogen [Mass/Vol] 34 mg/dL High 4-19 [facility] Comment on above: Performed By: #### L 500.4050, L501.5200 #### [facility] [address] [place], [address] Glomerular filtration rate ( GFR) estimation/1.73 sq m using serum, plasma, or whole bOrdered By: Nathen Chang on 08-30-2024 GFR/1.73 sq M.predicted among non-blacks MDRD (S/P/Bld) [Vol rate/Area] 26 mL/min/{1.73_m2} Low >60 [facility] Comment on above: mL/min/1.73m2 CKD-EP I Creatinine Equation (2020) Laboratory - Chemistry and C hemistry - challengeOrdered By: Nathen Chang on 08-30-2024 AST [Catalytic activity/Vol] 28 U/L <38 [facility] Magnesiumon 08-30-2024 Magnesium [Mass/Vol] 2.3 mg/dL High 1.5-2.2 [facility] Comment on above: Performed By: #### L 500.4050, L501.5200 #### [facility] [place], [place], [address] Magnesium measurement (mass/ volume)Ordered By: Nathen Chang on 08-30-2024 Magnesium (Unsp spec) [Mass/Vol] 2.3 mg/dL High 1.5-2.2 [facility] Potassium measurement (mass/ volume)Ordered By: Nathen Chang on 08-30-2024 Potassium (Unsp spec) [Mass/Vol] 5.1 mmol/L 3.3-5.1 [facility] Serum creatinine measurement (mass/volume)Ordered By: Nathen Chang on 08-30-2024 Creatinine [Mass/Vol] 2.49 mg/dL High 0.70-1.20 [facility] Serum globulin measurementOr dered By: Nathen Chang on 08-30-2024 Globulin (S) [Mass/Vol] 2.9 g/dL 2.2-4.2 [facility] Serum glucose measurement (m ass/volume)Ordered By: Nathen Chang on 08-30-2024 Glucose [Mass/Vol] 318 mg/dL High 70-99 [facility] Serum or plasma alanine diaz otransferase (ALT) measurementOrdered By: Nathen Chang on 08-30-2024 ALT [Catalytic activity/Vol] 24 U/L <47 [facility] Serum or plasma albumin amadou urement (mass/volume)Ordered By: Nathen Chang on 08-30-2024 Albumin [Mass/Vol] 3.4 g/dL 3.4-4.8 [facility] Serum or plasma albumin/glob ulin mass ratioOrdered By: Nathen Chang on 08-30-2024 Albumin/Globulin [Mass ratio] 1.2 {ratio} 0.9-2.4 [facility] Serum or plasma alkaline esther sphatase measurementOrdered By: Nathen Chang on 08-30-2024 ALP [Catalytic activity/Vol] 51 U/L 40-129 [facility] Serum or plasma calcium amadou urement (mass/volume)Ordered By: Nathen Chang on 08-30-2024 Calcium [Mass/Vol] 9.3 mg/dL 7.6-11.0 [facility] Serum or plasma urea nitroge n measurement (mass/volume)Ordered By: Nathen Chang on 08-30-2024 Urea nitrogen [Mass/Vol] 34 mg/dL High 4-19 [facility] Sodium levelOrdered By: Nathen Chang on 08-30-2024 Sodium [Moles/Vol] 136 mmol/L 133-145 [facility] Total proteinOrdered By: Shani Chang on 08-30-2024 Protein [Mass/Vol] 6.4 g/dL 5.9-8.4 [facility] Chest PA and Lateralon 08-05 Chest PA and Lateral [facility] Services [address] [place] [address] [id number] Chest PA and Lateral MR#: [id number] Acct: [id number] Name: PARK [place]OUSA Rep #: [id number] : 1945 M 78 From: Alexys Miranda MD PCP: Dr. Nathen Chang MD Status: [facility] CLI Study: Chest PA and Lateral Date of Exam: 08/05/24 Exam# [id number] Ordering Dr: Parvez Biggs WIRELESS SALES EXPERT WIRELESS SALES EXPERT -C PROCEDURE: CHEST PA AND LATERAL 08/05/2024 REASON FOR EXAM: BRONCHITIS TECHNIQUE: Frontal and lateral views of the chest. COMPARISON: 08/12/2023 FINDINGS: The lungs appear clear. Pulmonary vascularity appears within limits. No pleural effusion. The cardiac and mediastinal contours appear within limits. Atherosclerotic change at the aortic arch again noted. lead principal technical architect AICD again noted. The visualized osseous structures appear within limits. RAD/Chest PA and Lateral IMPRESSION: No evidence of acute disease. Reading Location: [id number] CC: Parvez PARRA McMorrow; Dr. Nathen Chang MD [employer] Operator: Signed Normal [facility] Anion gap in Serum or Plasma Ordered By: Nathen Chang on 07-05-2024 Anion gap [Moles/Vol] 11 mmol/L 5-15 [facility] BUN/creatinine ratioOrdered By: Nathen Chang on 07-05-2024 Urea nitrogen/Creatinine [Mass ratio] 14.6 mg/mg 10-20 [facility] Bilirubin, totalOrdered By: Nathen Chang on 07-05-2024 Bilirubin [Mass/Vol] 0.31 mg/dL 0.00-1.30 [facility] Carbon dioxide, total [Moles /volume] in Central venous bloodOrdered By: Nathen Chang on 07-05-2024 CO2 [Moles/Vol] 26.3 mmol/L 21.0-32.0 [facility] Chloride assayOrdered By: Rusty Chang on 07-05-2024 Chloride [Moles/Vol] 100 mmol/L 98-108 [facility] Comprehensive Metabolic Prof ilon 07-05-2024 Albumin [Mass/Vol] 3.8 g/dL Normal 3.4-4.8 [facility] Comment on above: Order Comment: Order Date: 07/05/24 Order Info: 0786-1 - CMP Order Info: [id number] - MG Performed By: #### L 500.4050, L504.2020 #### [facility] [address] [place], [place], [address] Albumin/Globulin [Mass ratio] 1.3 {ratio} Normal 0.9-2.4 [facility] Comment on above: Order Comment: Order Date: 07/05/24 Order Info: 0786-1 - CMP Order Info: [id number] - MG Performed By: #### L 500.4050, [id number] #### [facility] [address] [place], [address] ALK PHOS 65 U/L Normal 40-129 [facility] Comment on above: Order Comment: Order Date: 07/05/24 Order Info: 0786-1 - CMP Order Info: [id number] - MG Performed By: #### L 500.4050, L501.5200 #### [facility] [address] [place], [address] ALT [Catalytic activity/Vol] 24 U/L Normal <=46 [facility] Comment on above: Order Comment: Order Date: 07/05/24 Order Info: 0786-1 - CMP Order Info: [id number] - MG Performed By: #### L 500.4050, L501.5200 #### [facility] [address] [place], [address] AST [Catalytic activity/Vol] 36 U/L Normal <=37 [facility] Comment on above: Order Comment: Order Date: 07/05/24 Order Info: 0786-1 - CMP Order Info: [id number] - MG Performed By: #### L 500.4050, L501.5200 #### [facility] [address] [place], [address] Bilirubin [Mass/Vol] 0.31 mg/dL Normal 0.00-1.30 [facility] Comment on above: Order Comment: Order Date: 07/05/24 Order Info: 0786-1 - CMP Order Info: [id number] - MG Performed By: #### L 500.4050, L501.5200 #### [facility] [address] [place], [address] BUN/CRE 14.6 RATIO Normal 10-20 [facility] Comment on above: Order Comment: Order Date: 07/05/24 Order Info: 0786-1 - CMP Order Info: [id number] - MG Performed By: #### L 500.4050, L501.5200 #### [facility] [address] [place], [address] Calcium [Mass/Vol] 9.4 mg/dL Normal 7.6-11.0 [facility] Comment on above: Order Comment: Order Date: 07/05/24 Order Info: 0786-1 - CMP Order Info: [id number] - MG Performed By: #### L 500.4050, L501.5200 #### [facility] [address] [place], [address] Chloride [Moles/Vol] 100 mmol/L Normal 98-108 [facility] Comment on above: Order Comment: Order Date: 07/05/24 Order Info: 0786-1 - CMP Order Info: [id number] - MG Performed By: #### L 500.4050, L501.5200 #### [facility] [address] [place], [address] CO2 [Moles/Vol] 26.3 mmol/L Normal 21.0-32.0 [facility] Comment on above: Order Comment: Order Date: 07/05/24 Order Info: 0786-1 - CMP Order Info: [id number] - MG Performed By: #### L 500.4050, L501.5200 #### [facility] [address] [place], [address] Creatinine [Mass/Vol] 2.77 mg/dL High 0.70-1.20 [facility] Comment on above: Order Comment: Order Date: 07/05/24 Order Info: 0786-1 - CMP Order Info: [id number] - MG Performed By: #### L 500.4050, L501.5200 #### [facility] [address] [place], [address] GAP 11 Normal 5-15 [facility] Comment on above: Order Comment: Order Date: 07/05/24 Order Info: 0786-1 - CMP Order Info: [id number] - MG Performed By: #### L 500.4050, L501.5200 #### [facility] [address] [place], [address] GFR/1.73 sq M.predicted among non-blacks MDRD (S/P/Bld) [Vol rate/Area] 23 mL/min/{1.73_m2} Low >60 [facility] Comment on above: Order Comment: Order Date: 07/05/24 Order Info: 0786-1 - CMP Order Info: [id number] - MG Result Comment: mL/m in/1.73m2 CKD-EPI Creatinine Equation (2020) Performed By: #### L 500.4050, L501.5200 #### [facility] [address] [place], [address] Globulin (S) [Mass/Vol] 3.1 g/dL Normal 2.2-4.2 [facility] Comment on above: Order Comment: Order Date: 07/05/24 Order Info: 0786-1 - CMP Order Info: [id number] - MG Performed By: #### L 500.4050, L501.5200 #### [facility] [address] [place], [address] Glucose [Mass/Vol] 348 mg/dL High 70-99 [facility] Comment on above: Order Comment: Order Date: 07/05/24 Order Info: 0786-1 - CMP Order Info: [id number] - MG Performed By: #### L 500.4050, L501.5200 #### [facility] [address] [place], [address] Potassium [Moles/Vol] 5.5 mmol/L High 3.3-5.1 [facility] Comment on above: Order Comment: Order Date: 07/05/24 Order Info: 0786-1 - CMP Order Info: [id number] - MG Performed By: #### L 500.4050, L501.5200 #### [facility] [address] [place], [address] Sodium [Moles/Vol] 137 mmol/L Normal 133-145 [facility] Comment on above: Order Comment: Order Date: 07/05/24 Order Info: 0786-1 - CMP Order Info: [id number] - MG Performed By: #### L 500.4050, L501.5200 #### [facility] [address] [place], [address] T PROT 6.9 g/dL Normal 5.9-8.4 [facility] Comment on above: Order Comment: Order Date: 07/05/24 Order Info: 0786-1 - CMP Order Info: [id number] - MG Performed By: #### L 500.4050, L501.5200 #### [facility] [address] [place], [address] Urea nitrogen [Mass/Vol] 40 mg/dL High 4-19 [facility] Comment on above: Order Comment: Order Date: 07/05/24 Order Info: 0786-1 - CMP Order Info: [id number] - MG Performed By: #### L 500.4050, L501.5200 #### [facility] [address] [place], [address] GFR/1.73 sq M.predicted gunnar g non-blacks MDRD (S/P/Bld) [Vol rate/Area]Ordered By: Nathen Chang on 07-05-2024 Estimated GFR (MDRD) Non-Af Amer 23 Low >60 [facility] Comment on above: mL/min/1.73m2 CKD-EP I Creatinine Equation (2020) Glomerular filtration rate ( GFR) estimation/1.73 sq m using serum, plasma, or whole bOrdered By: Nathen Chang on 07-05-2024 GFR/1.73 sq M.predicted among non-blacks MDRD (S/P/Bld) [Vol rate/Area] 23 mL/min/{1.73_m2} Low >60 [facility] Comment on above: mL/min/1.73m2 CKD-EP I Creatinine Equation (2020) Laboratory - Chemistry and C hemistry - challengeOrdered By: Nathen Chang on 07-05-2024 AST [Catalytic activity/Vol] 36 U/L <38 [facility] Magnesiumon 07-05-2024 Magnesium [Mass/Vol] 2.3 mg/dL High 1.5-2.2 [facility] Comment on above: Order Comment: Order Date: 07/05/24 Order Info: 0786-1 - CMP Order Info: [id number] - MG Performed By: #### L 500.4050, L501.5200 #### [facility] [address] [place], [address] Magnesium (Unsp spec) [Mass/ Vol]Ordered By: Nathen Chang on 07-05-2024 Magnesium [Mass/Vol] 2.3 mg/dL High 1.5-2.2 [facility] Magnesium measurement (mass/ volume)Ordered By: Nathen Chang on 07-05-2024 Magnesium (Unsp spec) [Mass/Vol] 2.3 mg/dL High 1.5-2.2 [facility] Potassium (Unsp spec) [Mass/ Vol]Ordered By: Nathen Chang on 07-05-2024 Potassium [Moles/Vol] 5.5 mmol/L High 3.3-5.1 [facility] Potassium measurement (mass/ volume)Ordered By: Nathen Chang on 07-05-2024 Potassium (Unsp spec) [Mass/Vol] 5.5 mmol/L High 3.3-5.1 [facility] Serum creatinine measurement (mass/volume)Ordered By: Nathen Chang on 07-05-2024 Creatinine [Mass/Vol] 2.77 mg/dL High 0.70-1.20 [facility] Serum globulin measurementOr dered By: Nathen Chang on 07-05-2024 Globulin (S) [Mass/Vol] 3.1 g/dL 2.2-4.2 [facility] Serum glucose measurement (m ass/volume)Ordered By: Nathen Chang on 07-05-2024 Glucose [Mass/Vol] 348 mg/dL High 70-99 [facility] Serum or plasma alanine diaz otransferase (ALT) measurementOrdered By: Nathen Chang on 07-05-2024 ALT [Catalytic activity/Vol] 24 U/L <47 [facility] Serum or plasma albumin amadou urement (mass/volume)Ordered By: Nathen Chang on 07-05-2024 Albumin [Mass/Vol] 3.8 g/dL 3.4-4.8 [facility] Serum or plasma albumin/glob ulin mass ratioOrdered By: Nathen Chang on 07-05-2024 Albumin/Globulin [Mass ratio] 1.3 {ratio} 0.9-2.4 [facility] Serum or plasma alkaline esther sphatase measurementOrdered By: Nathen Chang on 07-05-2024 ALP [Catalytic activity/Vol] 65 U/L 40-129 [facility] Serum or plasma calcium amadou urement (mass/volume)Ordered By: Nathen Chang on 07-05-2024 Calcium [Mass/Vol] 9.4 mg/dL 7.6-11.0 [facility] Serum or plasma urea nitroge n measurement (mass/volume)Ordered By: Nathen Chang on 07-05-2024 Urea nitrogen [Mass/Vol] 40 mg/dL High 4-19 [facility] Sodium levelOrdered By: Nathen Chang on 07-05-2024 Sodium [Moles/Vol] 137 mmol/L 133-145 [facility] Total proteinOrdered By: Shani Chang on 07-05-2024 Protein [Mass/Vol] 6.9 g/dL 5.9-8.4 [facility] L3410.9998on 06-24-2024 [facility] . [facility] Comment on above: Order Comment: Order Date: 06/07/24 Order Info: [id number] - BMP Order Date: 05/31/24 Order Info: 0786-1 - CMP Result Comment: Test Ordered: [id number] Cortisol Dexamethasone Reflex Cortisol, Serum LCMS 2.0 [H ] ug/dL ES Reference Range: . A serum cortisol level greater than 1.8 ug/dL after the single-dose overnight dexamethasone is considered a positive test. Refer to the [facility] Endocrinology Syllabus for more detail. This test was developed and its performance characteristics determined by [facility]. It has not been cleared or approved by the Food and Drug Administration. Reference Range: <1.8 Dexamethasone Reflex Comment ES Reference Range: . Dexamethasone testing added Dexamethasone, Serum 430 ng/dL ES Reference Range: . This test was developed and its performance characteristics determined by [facility]. It has not been cleared or approved by the Food and Drug Administration. Reference Range: Adults baseline: <30 8:00 AM following 1 mg dexamethasone previous evenin - 295 8:00 AM following 8 mg dexamethasone (4 x 2 mg doses) previous day: 1600 - 2850 Performed at: [facility] [address] [place] [id number] Pilates Coordinator: Sarabjit Kapadia MD, Phone: [phone] Performed at: [address] [id number] Pilates Coordinator: Mati Culp PhD, Phone: [phone] Performed By: #### L 500.4050, L3300.1000 #### [facility] [address] [place], [address] Anion gap in Serum or Plasma Ordered By: Nathen Chang on 06-13-2024 Anion gap [Moles/Vol] 11 mmol/L 08-18 [facility] BUN/creatinine ratioOrdered By: Nathen Chang on 06-13-2024 Urea nitrogen/Creatinine [Mass ratio] 17.4 mg/mg 01-23 [facility] Basic Metabolic Profile (BMP )on 06-13-2024 BUN/CRE 17.4 RATIO Normal 01-23 [facility] Comment on above: Order Comment: Order Date: 05/31/24 Order Info: 2140-0 - ACTH N Performed By: #### L 500.4050, L3300.1000 #### [facility] [address] [place], [address] Calcium [Mass/Vol] 9.5 mg/dL Normal 7.6-11.0 [facility] Comment on above: Order Comment: Order Date: 05/31/24 Order Info: 214-0 - ACTH N Performed By: #### L 500.4050, L3300.1000 #### [facility] [address] [place], [address] Chloride [Moles/Vol] 101 mmol/L Normal 98-108 [facility] Comment on above: Order Comment: Order Date: 05/31/24 Order Info: 2140-0 - ACTH N Performed By: #### L 500.4050, L3300.1000 #### [facility] [address] [place], [address] CO2 [Moles/Vol] 25.6 mmol/L Normal 21.0-32.0 [facility] Comment on above: Order Comment: Order Date: 05/31/24 Order Info: 2140-0 - ACTH N Performed By: #### L 500.4050, L3300.1000 #### [facility] [address] [place], [address] Creatinine [Mass/Vol] 2.44 mg/dL High 0.70-1.20 [facility] Comment on above: Order Comment: Order Date: 05/31/24 Order Info: 2140-0 - ACTH N Performed By: #### L 500.4050, L3300.1000 #### [facility] [address] [place], [address] GAP 11 Normal 5-15 [facility] Comment on above: Order Comment: Order Date: 05/31/24 Order Info: 2140-0 - ACTH N Performed By: #### L 500.4050, L3300.1000 #### [facility] [address] [place], [address] GFR/1.73 sq M.predicted among non-blacks MDRD (S/P/Bld) [Vol rate/Area] 26 mL/min/{1.73_m2} Low >60 [facility] Comment on above: Order Comment: Order Date: 05/31/24 Order Info: 214-0 - ACTH N Result Comment: mL/m in/1.73m2 CKD-EPI Creatinine Equation (2020) Performed By: #### L 500.4050, L3300.1000 #### [facility] [address] [place], [address] Glucose [Mass/Vol] 336 mg/dL High 70-99 [facility] Comment on above: Order Comment: Order Date: 05/31/24 Order Info: 2140-0 - ACTH N Performed By: #### L 500.4050, L3300.1000 #### [facility] [address] [place], [address] Potassium [Moles/Vol] 5.3 mmol/L High 3.3-5.1 [facility] Comment on above: Order Comment: Order Date: 05/31/24 Order Info: 2140-0 - ACTH N Performed By: #### L 500.4050, L3300.1000 #### [facility] [address] [place], [address] Sodium [Moles/Vol] 137 mmol/L Normal 133-145 [facility] Comment on above: Order Comment: Order Date: 05/31/24 Order Info: 2140-0 - ACTH N Performed By: #### L 500.4050, L3300.1000 #### [facility] [address] [place], [address] Urea nitrogen [Mass/Vol] 42 mg/dL High 4-19 [facility] Comment on above: Order Comment: Order Date: 05/31/24 Order Info: 2140-0 - ACTH N Performed By: #### L 500.4050, L3300.1000 #### [facility] [address] [place], [address] Carbon dioxide, total [Moles /volume] in Central venous bloodOrdered By: Nathen Chang on 06-13-2024 CO2 [Moles/Vol] 25.6 mmol/L 21.0-32.0 [facility] Chloride assayOrdered By: Rusty Chang on 06-13-2024 Chloride [Moles/Vol] 101 mmol/L 98-108 [facility] GFR/1.73 sq M.predicted gunnar g non-blacks MDRD (S/P/Bld) [Vol rate/Area]Ordered By: Nathen Chang on 06-13-2024 Estimated GFR (MDRD) Non-Af Amer 26 Low >60 [facility] Comment on above: mL/min/1.73m2 CKD-EP I Creatinine Equation (2020) Glomerular filtration rate ( GFR) estimation/1.73 sq m using serum, plasma, or whole bOrdered By: Nathen Chang on 06-13-2024 GFR/1.73 sq M.predicted among non-blacks MDRD (S/P/Bld) [Vol rate/Area] 26 mL/min/{1.73_m2} Low >60 [facility] Comment on above: mL/min/1.73m2 CKD-EP I Creatinine Equation (2020) Potassium (Unsp spec) [Mass/ Vol]Ordered By: Nathen Chang on 06-13-2024 Potassium [Moles/Vol] 5.3 mmol/L High 3.3-5.1 [facility] Potassium measurement (mass/ volume)Ordered By: Nathen Chang on 06-13-2024 Potassium (Unsp spec) [Mass/Vol] 5.3 mmol/L High 3.3-5.1 [facility] Serum creatinine measurement (mass/volume)Ordered By: Nathen Chang on 06-13-2024 Creatinine [Mass/Vol] 2.44 mg/dL High 0.70-1.20 [facility] Serum glucose measurement (m ass/volume)Ordered By: Nathen Chang on 06-13-2024 Glucose [Mass/Vol] 336 mg/dL High 70-99 [facility] Serum or plasma calcium amadou urement (mass/volume)Ordered By: Nathen Chang on 06-13-2024 Calcium [Mass/Vol] 9.5 mg/dL 7.6-11.0 [facility] Serum or plasma urea nitroge n measurement (mass/volume)Ordered By: Nathen Chang on 06-13-2024 Urea nitrogen [Mass/Vol] 42 mg/dL High 4-19 [facility] Sodium levelOrdered By: Nathen Chang on 06-13-2024 Sodium [Moles/Vol] 137 mmol/L 133-145 [facility] Adrenocorticotropic Hormoneo n 06-09-2024 ACTH 39.5 pg/mL Normal 7.2-63.3 [facility] Comment on above: Order Comment: Order Date: 05/31/24 Order Info: 2141-0 - ACTH N Result Comment: ACTH reference interval for samples collected between 7 and 10 AM. Performed at: [facility] [address] [place], [place] [id number] Pilates Coordinator: Mati Culp PhD, Phone: [phone] Performed By: #### L 500.4050, L3300.1000 #### [facility] [address] [place], [address] Absolute lymphocyte countOrd ered By: Nathen Chang on 06-08-2024 Lymphocytes Auto (Unsp spec) [#/Vol] 1.39 10*3/uL 0.83-4.51 [facility] Absolute neutrophil countOrd ered By: Nathen Chang on 06-08-2024 Neutrophils (Bld) [#/Vol] 5.2 10*3/uL 2.0-7.7 [facility] Adrenocorticotropic hormone (ACTH) measurementOrdered By: Nathen Chang on 06-08-2024 Adrenocorticotropic Hormone 39.5 pg/mL 7.2-63.3 [facility] Comment on above: ACTH reference inter miguel angel for samples collected between 7 and10 AM.Performed at: [facility] [place], [place] [id number] Director: Mati Culp PhD, Phone: [phone] Anion gap in Serum or Plasma Ordered By: Nathen Chang on 06-08-2024 Anion gap [Moles/Vol] 14 mmol/L 5-15 [facility] Automated lymphocyte count a s percentage of total leukocytesOrdered By: Nathen Chang on 06-08-2024 Lymphocytes/100 WBC Auto (Unsp spec) 18.7 % Low 19-41 [facility] BUN/creatinine ratioOrdered By: Nathen Chang on 06-08-2024 Urea nitrogen/Creatinine [Mass ratio] 14.8 mg/mg 10-20 [facility] Basophil percentageOrdered B y: Nathen Chang on 06-08-2024 Basophils/100 WBC (Bld) 0.8 % 0-1 [facility] Bilirubin, totalOrdered By: Nathen Chang on 06-08-2024 Bilirubin [Mass/Vol] 0.25 mg/dL 0.00-1.30 [facility] CBC W/Diff, Automatedon Absolute Lymph 1.39 X10 3/uL Normal 0.83-4.51 [facility] Comment on above: Performed By: #### L 100.0100, L509.6001 #### [facility] [address] [place], [address] Absolute Neut 5.2 X10 3/uL Normal 2.0-7.7 [facility] Comment on above: Performed By: #### L 100.0100, L509.6001 #### [facility] [address] [place], [address] Basophils/100 WBC (Bld) 0.8 % Normal 0-1 [facility] Comment on above: Performed By: #### L 100.0100, L509.6001 #### [facility] [address] [place], [address] Eosinophils/100 WBC (Bld) 2.7 % Normal 0-5 [facility] Comment on above: Performed By: #### L 100.0100, L509.6001 #### [facility] [address] [place], [address] Erythrocyte distribution width (RBC) [Ratio] 13.2 % Normal 11.6-14.6 [facility] Comment on above: Performed By: #### L 100.0100, L509.6001 #### [facility] [address] [place], [address] Hematocrit (Bld) [Volume fraction] 41.6 % Normal 40-54 [facility] Comment on above: Performed By: #### L 100.0100, L509.6001 #### [facility] [address] [place], [address] Hemoglobin (Bld) [Mass/Vol] 13.6 g/dL Normal 13.0-16.5 [facility] Comment on above: Performed By: #### L 100.0100, L509.6001 #### [facility] [address] [place], [address] IG% 0.700 Normal 0.0-0.9 [facility] Comment on above: Result Comment: IG% - Immature Granulocytes (promyelocytes, myelocytes and metamyelocytes) > 1% indicates that a LEFT SHIFT is Present. Performed By: #### L 100.0100, L509.6001 #### [facility] [address] [place], [address] Lymphocytes/100 WBC (Bld) 18.7 % Low 19-41 [facility] Comment on above: Performed By: #### L 100.0100, L509.6001 #### [facility] [address] [place], [address] MCH (RBC) [Entitic mass] 29.4 pg Normal 27.0-32.0 [facility] Comment on above: Performed By: #### L 100.0100, L509.6001 #### [facility] [address] [place], [address] MCHC (RBC) [Mass/Vol] 32.7 g/dL Normal 32-36 [facility] Comment on above: Performed By: #### L 100.0100, L509.6001 #### [facility] [address] [place], [address] MCV (RBC) [Entitic vol] 89.8 fL Normal 80-94 [facility] Comment on above: Performed By: #### L 100.0100, L509.6001 #### [facility] [address] [place], [address] Monocytes/100 WBC (Bld) 7.8 % Normal 0-10 [facility] Comment on above: Performed By: #### L 100.0100, L509.6001 #### [facility] [address] [place], [address] Neutrophils/100 WBC (Bld) 69.3 % Normal 47-70 [facility] Comment on above: Performed By: #### L 100.0100, L509.6001 #### [facility] [address] [place], [address] Nucleated RBC (Bld) [#/Vol] 0 10*3/uL Normal 0-5 [facility] Comment on above: Performed By: #### L 100.0100, L509.6001 #### [facility] [address] [place], [address] Platelet mean volume (Bld) [Entitic vol] 10.4 fL Normal 6.2-12.0 [facility] Comment on above: Performed By: #### L 100.0100, L509.6001 #### [facility] [address] [place], [address] Platelets (Bld) [#/Vol] 242 10*3/uL Normal 150-450 [facility] Comment on above: Performed By: #### L 100.0100, L509.6001 #### [facility] [address] [place], [address] RBC (Bld) [#/Vol] 4.63 10*6/uL Normal 4.6-6.2 [facility] Comment on above: Performed By: #### L 100.0100, L509.6001 #### [facility] [address] [place], [address] RDW SD 42.7 fl Normal 35.1-43.9 [facility] Comment on above: Performed By: #### L 100.0100, L509.6001 #### [facility] [address] [place], [address] WBC (Bld) [#/Vol] 7.4 10*3/uL Normal 4.4-11.0 [facility] Comment on above: Performed By: #### L 100.0100, L509.6001 #### [facility] [address] [place], [address] Carbon dioxide, total [Moles /volume] in Central venous bloodOrdered By: Nathen Chang on 06-08-2024 CO2 [Moles/Vol] 23.1 mmol/L 21.0-32.0 [facility] Chloride assayOrdered By: Rusty Chang on 06-08-2024 Chloride [Moles/Vol] 97 mmol/L Low 98-108 [facility] Comprehensive Metabolic Prof ilon 06-08-2024 Albumin [Mass/Vol] 3.1 g/dL Low 3.4-4.8 [facility] Comment on above: Order Comment: Order Date: 06/07/24 Order Info: 0667-1 - BMP Order Date: 05/31/24 Order Info: 0786-1 - CMP Performed By: #### L 500.4050, L3300.1000 #### [facility] [address] [place], [address] Albumin/Globulin [Mass ratio] 1.9 {ratio} Normal 0.9-2.4 [facility] Comment on above: Order Comment: Order Date: 06/07/24 Order Info: 0667-1 - BMP Order Date: 05/31/24 Order Info: 0786-1 - CMP Performed By: #### L 500.4050, [id number] #### [facility] [address] [place], [address] ALK PHOS 56 U/L Normal 40-129 [facility] Comment on above: Order Comment: Order Date: 06/07/24 Order Info: 0667-1 - BMP Order Date: 05/31/24 Order Info: 0786-1 - CMP Performed By: #### L 500.4050, L3300.1000 #### [place] [facility] [address] [place], [address] ALT [Catalytic activity/Vol] 17 U/L Normal <=46 [facility] Comment on above: Order Comment: Order Date: 06/07/24 Order Info: 0667-1 - BMP Order Date: 05/31/24 Order Info: 0786-1 - CMP Performed By: #### L 500.4050, [id number] #### [facility] [address] [place], [address] AST [Catalytic activity/Vol] 22 U/L Normal <=37 [facility] Comment on above: Order Comment: Order Date: 06/07/24 Order Info: 0667- - BMP Order Date: 05/31/24 Order Info: 0786-1 - CMP Performed By: #### L 500.4050, L3300.1000 #### [facility] [address] [place], [address] Bilirubin [Mass/Vol] 0.25 mg/dL Normal 0.00-1.30 [facility] Comment on above: Order Comment: Order Date: 06/07/24 Order Info: 0667- - BMP Order Date: 05/31/24 Order Info: 0786-1 - CMP Performed By: #### L 500.4050, L3300.1000 #### [facility] [address] [place], [address] BUN/CRE 14.8 RATIO Normal 10-20 [facility] Comment on above: Order Comment: Order Date: 06/07/24 Order Info: 0667-1 - BMP Order Date: 05/31/24 Order Info: 0786-1 - CMP Performed By: #### L 500.4050, L3300.1000 #### [facility] [address] [place], [address] Calcium [Mass/Vol] 8.8 mg/dL Normal 7.6-11.0 [facility] Comment on above: Order Comment: Order Date: 06/07/24 Order Info: 0667-1 - BMP Order Date: 05/31/24 Order Info: 0786-1 - CMP Performed By: #### L 500.4050, L3300.1000 #### [facility] [address] [place], [address] Chloride [Moles/Vol] 97 mmol/L Low 98-108 [facility] Comment on above: Order Comment: Order Date: 06/07/24 Order Info: 67- - BMP Order Date: 05/31/24 Order Info: 0786-1 - CMP Performed By: #### L 500.4050, L3300.1000 #### [facility] [address] [place], [address] CO2 [Moles/Vol] 23.1 mmol/L Normal 21.0-32.0 [facility] Comment on above: Order Comment: Order Date: 06/07/24 Order Info: 67- - BMP Order Date: 05/31/24 Order Info: 0786- - CMP Performed By: #### L 500.4050, L3300.1000 #### [facility] [address] [place], [address] Creatinine [Mass/Vol] 2.77 mg/dL High 0.70-1.20 [facility] Comment on above: Order Comment: Order Date: 06/07/24 Order Info: 0667- - BMP Order Date: 05/31/24 Order Info: 0786-1 - CMP Performed By: #### L 500.4050, [id number] #### [facility] [address] [place], [address] GAP 14 Normal 5-15 [facility] Comment on above: Order Comment: Order Date: 06/07/24 Order Info: 0667-1 - BMP Order Date: 05/31/24 Order Info: 0786-1 - CMP Performed By: #### L 500.4050, L3300.1000 #### [facility] [address] [place], [address] GFR/1.73 sq M.predicted among non-blacks MDRD (S/P/Bld) [Vol rate/Area] 23 mL/min/{1.73_m2} Low >60 [facility] Comment on above: Order Comment: Order Date: 06/07/24 Order Info: 0667-1 - BMP Order Date: 05/31/24 Order Info: 0786-1 - CMP Result Comment: mL/m in/1.73m2 CKD-EPI Creatinine Equation (2020) Performed By: #### L 500.4050, L3300.1000 #### [facility] [address] [place], [address] Globulin (S) [Mass/Vol] 1.6 g/dL Low 2.2-4.2 [facility] Comment on above: Order Comment: Order Date: 06/07/24 Order Info: 0667-1 - BMP Order Date: 05/31/24 Order Info: 0786- - CMP Performed By: #### L 500.4050, L3300.1000 #### [facility] [address] [place], [address] Glucose [Mass/Vol] 384 mg/dL High 70-99 [facility] Comment on above: Order Comment: Order Date: 06/07/24 Order Info: 0667-1 - BMP Order Date: 05/31/24 Order Info: 0786-1 - CMP Performed By: #### L 500.4050, L3300.1000 #### [facility] [address] [place], [address] Potassium [Moles/Vol] 5.4 mmol/L High 3.3-5.1 [facility] Comment on above: Order Comment: Order Date: 06/07/24 Order Info: 0667-1 - BMP Order Date: 05/31/24 Order Info: 0786-1 - CMP Performed By: #### L 500.4050, L3300.1000 #### [facility] [address] [place], [address] Sodium [Moles/Vol] 134 mmol/L Normal 133-145 [facility] Comment on above: Order Comment: Order Date: 06/07/24 Order Info: 0667-1 - BMP Order Date: 05/31/24 Order Info: 0786-1 - CMP Performed By: #### L 500.4050, L3300.1000 #### [facility] [address] [place], [address] T PROT 4.8 g/dL Low 5.9-8.4 [facility] Comment on above: Order Comment: Order Date: 06/07/24 Order Info: 0667-1 - BMP Order Date: 05/31/24 Order Info: 0786-1 - CMP Performed By: #### L 500.4050, L3300.1000 #### [facility] [address] [place], [address] Urea nitrogen [Mass/Vol] 41 mg/dL High 4-19 [facility] Comment on above: Order Comment: Order Date: 06/07/24 Order Info: 0667-1 - BMP Order Date: 05/31/24 Order Info: 0786-1 - CMP Performed By: #### L 500.4050, L3300.1000 #### [facility] [address] [place], [address] Eosinophil percentageOrdered By: Nathen Chang on 06-08-2024 Eosinophils/100 WBC (Bld) 2.7 % 0-5 [facility] Erythrocyte distribution wid th ratioOrdered By: Nathen Chang on 06-08-2024 Erythrocyte distribution width (RBC) [Ratio] 13.2 % 11.6-14.6 [facility] Erythrocyte distribution wid th standard deviationOrdered By: Nathen Chang on 06-08-2024 Erythrocyte distribution width (RBC) [Entitic vol] 42.7 fL 35.1-43.9 [facility] Erythrocyte distribution width (RBC) [Ratio] 42.7 fl 35.1-43.9 [facility] GFR/1.73 sq M.predicted gunnar g non-blacks MDRD (S/P/Bld) [Vol rate/Area]Ordered By: Nathen Chang on 06-08-2024 Estimated GFR (MDRD) Non-Af Amer 23 Low >60 [facility] Comment on above: mL/min/1.73m2 CKD-EP I Creatinine Equation (2020) Glomerular filtration rate ( GFR) estimation/1.73 sq m using serum, plasma, or whole bOrdered By: Nathen Chang on 06-08-2024 GFR/1.73 sq M.predicted among non-blacks MDRD (S/P/Bld) [Vol rate/Area] 23 mL/min/{1.73_m2} Low >60 [facility] Comment on above: mL/min/1.73m2 CKD-EP I Creatinine Equation (2020) Hematocrit Auto (Bld) [Volum e fraction]Ordered By: Nathen Chang on 06-08-2024 Hematocrit (Bld) [Volume fraction] 41.6 % 40-54 [facility] Hemoglobin measurementOrdere d By: Nathen Chang on 06-08-2024 Hemoglobin (Bld) [Mass/Vol] 13.6 g/dL 13.0-16.5 [facility] Immature granulocytes/100 WB C Auto (Bld)Ordered By: Nathen Chang on 06-08-2024 Immature granulocytes/100 WBC (Bld) 0.700 % 0.0-0.9 [facility] Comment on above: IG% - Immature Granu locytes (promyelocytes, myelocytes and metamyelocytes) > 1% indicates that a LEFT SHIFT is Present. L509.6001on 06-08-2024 CORTISOL 13.50 ug/dL Normal 6.02-18.40 [facility] Comment on above: Order Comment: Order Date: 06/07/24 Order Info: 0667-1 - BMP Order Date: 05/31/24 Order Info: 0786-1 - CMP Performed By: #### L 100.0100, L509.6001 #### [facility] [address] [place], [address] Laboratory - Chemistry and C hemistry - challengeOrdered By: Nathen Chang on 06-08-2024 AST [Catalytic activity/Vol] 22 U/L <38 [facility] Lymphocytes Auto (Unsp spec) [#/Vol]Ordered By: Nathen Chang on 06-08-2024 Lymphocytes (Bld) [#/Vol] 1.39 10*3/uL 0.83-4.51 [facility] Lymphocytes/100 WBC Auto (Un sp spec)Ordered By: Nathen Chang on 06-08-2024 Lymphocytes/100 WBC (Bld) 18.7 % Low 19-41 [facility] MCV (mean corpuscular volume ) determinationOrdered By: Nathen Chang on 06-08-2024 MCV (RBC) [Entitic vol] 89.8 fL 80-94 [facility] Mean corpuscular hemoglobin (MCH) determinationOrdered By: Nathen Chang on 06-08-2024 MCH (RBC) [Entitic mass] 29.4 pg 27.0-32.0 [facility] Mean corpuscular hemoglobin concentration (MCHC) determinationOrdered By: Nathen Chang on 06-08-2024 MCHC (RBC) [Mass/Vol] 32.7 g/dL 32-36 [facility] Mean platelet volume determi nationOrdered By: Nathen Chang on 06-08-2024 Platelet mean volume (Bld) [Entitic vol] 10.4 fL 6.2-12.0 [facility] Monocyte percentageOrdered B y: Nathen Chang on 06-08-2024 Monocytes/100 WBC (Bld) 7.8 % 0-10 [facility] Neutrophil percentageOrdered By: Nathen Chang on 06-08-2024 Neutrophils/100 WBC (Bld) 69.3 % 47-70 [facility] No Panel InformationOrdered By: Nathen Chang on 06-08-2024 Cortisol AM Sample 13.50 ug/dL 6.02-18.40 [facility] Nucleated red blood cell per centageOrdered By: Nathen Chang on 06-08-2024 Nucleated RBC/100 WBC (Bld) [Ratio] 0 % 0-5 [facility] Platelet countOrdered By: Rusty Chang on 06-08-2024 Platelets (Bld) [#/Vol] 242 10*3/uL 150-450 [facility] Potassium (Unsp spec) [Mass/ Vol]Ordered By: Nathen Chang on 06-08-2024 Potassium [Moles/Vol] 5.4 mmol/L High 3.3-5.1 [facility] Potassium measurement (mass/ volume)Ordered By: Nathen Chang on 06-08-2024 Potassium (Unsp spec) [Mass/Vol] 5.4 mmol/L High 3.3-5.1 [facility] RBC Auto (Bld) [#/Vol]Ordere d By: Nathen Chang on 06-08-2024 RBC (Bld) [#/Vol] 4.63 10*6/uL 4.6-6.2 [facility] Serum creatinine measurement (mass/volume)Ordered By: Nathen Chang on 06-08-2024 Creatinine [Mass/Vol] 2.77 mg/dL High 0.70-1.20 [facility] Serum globulin measurementOr dered By: Nathen Chang on 06-08-2024 Globulin (S) [Mass/Vol] 1.6 g/dL Low 2.2-4.2 [facility] Serum glucose measurement (m ass/volume)Ordered By: Nathen Chang on 06-08-2024 Glucose [Mass/Vol] 384 mg/dL High 70-99 [facility] Serum or plasma alanine diaz otransferase (ALT) measurementOrdered By: Nathen Chang on 06-08-2024 ALT [Catalytic activity/Vol] 17 U/L <47 [facility] Serum or plasma albumin amadou urement (mass/volume)Ordered By: Nathen Chang on 06-08-2024 Albumin [Mass/Vol] 3.1 g/dL Low 3.4-4.8 [facility] Serum or plasma albumin/glob ulin mass ratioOrdered By: Nathen Chang on 06-08-2024 Albumin/Globulin [Mass ratio] 1.9 {ratio} 0.9-2.4 [facility] Serum or plasma alkaline esther sphatase measurementOrdered By: Nathen Chang on 06-08-2024 ALP [Catalytic activity/Vol] 56 U/L 40-129 [facility] Serum or plasma calcium amadou urement (mass/volume)Ordered By: Nathen Chang on 06-08-2024 Calcium [Mass/Vol] 8.8 mg/dL 7.6-11.0 [facility] Serum or plasma urea nitroge n measurement (mass/volume)Ordered By: Nathen Chang on 06-08-2024 Urea nitrogen [Mass/Vol] 41 mg/dL High 4-19 [facility] Sodium levelOrdered By: Nathen Chang on 06-08-2024 Sodium [Moles/Vol] 134 mmol/L 133-145 [facility] Total proteinOrdered By: Shani Chang on 06-08-2024 Protein [Mass/Vol] 4.8 g/dL Low 5.9-8.4 [facility] White blood cell (WBC) count Ordered By: Nathen Chang on 06-08-2024 WBC (Bld) [#/Vol] 7.4 10*3/uL 4.4-11.0 [facility] Adrenocorticotropic Hormoneo n 06-07-2024 ACTH 10.9 pg/mL Normal 7.2-63.3 [facility] Comment on above: Order Comment: Order Date: 06/07/24 Order Info: 0667-1 - BMP Order Date: 05/31/24 Order Info: 0786-1 - CMP Result Comment: ACTH reference interval for samples collected between 7 and 10 AM. Performed at: [facility] [address] [id number] [employer] Coordinator: Mati Culp PhD, Phone: [phone] Performed By: #### L 500.4050, L3300.1000 #### [facility] [address] [place] [address], [address] Comprehensive Metabolic Prof ilon 06-07-2024 Glucose [Mass/Vol] 505 mg/dL Invalid Interpretation Code 70-99 [facility] Comment on above: Result Comment: Crit ical Result(s) Called at: by:??Results read back by same. Critical Result(s) Called at: by:??Results read back by same. Critical Result(s) Called at 1024: by: Nadia Riley. ?Results read back by same. AMENDED REPORT 06/07/24 0533 GLU previously reported as: 505 *H mg/dL Critical Result(s) Called at: by:??Results read back by same. Performed By: #### L 500.4050, L3300.1000 #### [facility] [place], [address] Absolute lymphocyte countOrd ered By: Nathen Chang on 06-06-2024 Lymphocytes Auto (Unsp spec) [#/Vol] 1.23 10*3/uL 0.83-4.51 [facility] Absolute neutrophil countOrd ered By: Nathen Chang on 06-06-2024 Neutrophils (Bld) [#/Vol] 9.0 10*3/uL High 2.0-7.7 [facility] Adrenocorticotropic hormone (ACTH) measurementOrdered By: Nathen Chang on 06-06-2024 Adrenocorticotropic Hormone 10.9 pg/mL 7.2-63.3 [facility] Comment on above: ACTH reference inter miguel angel for samples collected between 7 and10 AM.Performed at: [facility] [address] [id number] Director: Mati Culp PhD, Phone: [phone] Albumin DL <= 20 mg/L (U) [M ass/Vol]Ordered By: Nathen Chang on 06-06-2024 Urine Random Microalbumin 1936.0 mg/L NO RANGE EST. [facility] Automated lymphocyte count a s percentage of total leukocytesOrdered By: Nathen Chang on 06-06-2024 Lymphocytes/100 WBC Auto (Unsp spec) 11.5 % Low 19-41 [facility] BUN/creatinine ratioOrdered By: Nathen Chang on 06-06-2024 Urea nitrogen/Creatinine [Mass ratio] 18.0 mg/mg 10-20 [facility] Basophil percentageOrdered B y: Nathen Chang on 06-06-2024 Basophils/100 WBC (Bld) 0.4 % 0-1 [facility] Bilirubin, totalOrdered By: Nathen Chang on 06-06-2024 Bilirubin [Mass/Vol] 0.24 mg/dL 0.00-1.30 [facility] CBC W/Diff, Automatedon Absolute Lymph 1.23 X10 3/uL Normal 0.83-4.51 [facility] Comment on above: Performed By: #### L 500.4050, L3300.1000 #### [facility] [address] [place], [address] Absolute Neut 9.0 X10 3/uL High 2.0-7.7 [facility] Comment on above: Performed By: #### L 500.4050, L3300.1000 #### [facility] [address] [place], [address] Basophils/100 WBC (Bld) 0.4 % Normal 0-1 [facility] Comment on above: Performed By: #### L 500.4050, L3300.1000 #### [facility] [address] [place], [address] Eosinophils/100 WBC (Bld) 0.4 % Normal 0-5 [facility] Comment on above: Performed By: #### L 500.4050, L3300.1000 #### [facility] [address] [place], [address] Erythrocyte distribution width (RBC) [Ratio] 12.8 % Normal 11.6-14.6 [facility] Comment on above: Performed By: #### L 500.4050, L3300.1000 #### [facility] [address] [place], [address] Hematocrit (Bld) [Volume fraction] 42.6 % Normal 40-54 [facility] Comment on above: Performed By: #### L 500.4050, [id number] #### [facility] [address] [place], [address] Hemoglobin (Bld) [Mass/Vol] 13.9 g/dL Normal 13.0-16.5 [facility] Comment on above: Performed By: #### L 500.4050, L3300.1000 #### [facility] [address] [place], [address] IG% 0.800 Normal 0.0-0.9 [facility] Comment on above: Result Comment: IG% - Immature Granulocytes (promyelocytes, myelocytes and metamyelocytes) > 1% indicates that a LEFT SHIFT is Present. Performed By: #### L 500.4050, L3300.1000 #### [facility] [address] [place], [address] Lymphocytes/100 WBC (Bld) 11.5 % Low 19-41 [facility] Comment on above: Performed By: #### L 500.4050, L3300.1000 #### [facility] [address] [place], [address] MCH (RBC) [Entitic mass] 29.0 pg Normal 27.0-32.0 [facility] Comment on above: Performed By: #### L 500.4050, L3300.1000 #### [facility] [address] [place], [address] MCHC (RBC) [Mass/Vol] 32.6 g/dL Normal 32-36 [facility] Comment on above: Performed By: #### L 500.4050, L3300.1000 #### [facility] [address] [place], [address] MCV (RBC) [Entitic vol] 88.9 fL Normal 80-94 [facility] Comment on above: Performed By: #### L 500.4050, L3300.1000 #### [facility] [address] [place], [address] Monocytes/100 WBC (Bld) 3.3 % Normal 0-10 [facility] Comment on above: Performed By: #### L 500.4050, L3300.1000 #### [facility] [address] [place], [address] Neutrophils/100 WBC (Bld) 83.6 % High 47-70 [facility] Comment on above: Performed By: #### L 500.4050, L3300.1000 #### [facility] [address] [place], [address] Nucleated RBC (Bld) [#/Vol] 0 10*3/uL Normal 0-5 [facility] Comment on above: Performed By: #### L 500.4050, L3300.1000 #### [facility] [address] [place], [address] Platelet mean volume (Bld) [Entitic vol] 10.0 fL Normal 6.2-12.0 [facility] Comment on above: Performed By: #### L 500.4050, L3300.1000 #### [facility] [address] [place], [address] Platelets (Bld) [#/Vol] 232 10*3/uL Normal 150-450 [facility] Comment on above: Performed By: #### L 500.4050, L3300.1000 #### [facility] [address] [place], [address] RBC (Bld) [#/Vol] 4.79 10*6/uL Normal 4.6-6.2 [facility] Comment on above: Performed By: #### L 500.4050, L3300.1000 #### [facility] [address] [place], [address] RDW SD 41.2 fl Normal 35.1-43.9 [facility] Comment on above: Performed By: #### L 500.4050, L3300.1000 #### [facility] [address] [place], [address] WBC (Bld) [#/Vol] 10.7 10*3/uL Normal 4.4-11.0 [facility] Comment on above: Performed By: #### L 500.4050, L3300.1000 #### [facility] [address] [place], [address] Carbon dioxide measurementOr dered By: Nathen Chang on 06-06-2024 CO2 [Moles/Vol] 21.4 mmol/L Low 22.0-29.0 [facility] Chloride measurementOrdered By: Nathen Chang on 06-06-2024 Chloride [Moles/Vol] 99 mmol/L 96-108 [facility] Creatinine Unsp time (U) [Ma ss/Vol]Ordered By: Nathen Chang on 06-06-2024 Creatinine (U) [Mass/Vol] 79.10 mg/dL 39-259 [facility] Eosinophil percentageOrdered By: Nathen Chang on 06-06-2024 Eosinophils/100 WBC (Bld) 0.4 % 0-5 [facility] Erythrocyte distribution wid th ratioOrdered By: Nathen Chang on 06-06-2024 Erythrocyte distribution width (RBC) [Ratio] 12.8 % 11.6-14.6 [facility] Erythrocyte distribution wid th standard deviationOrdered By: Nathen Chang on 06-06-2024 Erythrocyte distribution width (RBC) [Entitic vol] 41.2 fL 35.1-43.9 [facility] Erythrocyte distribution width (RBC) [Ratio] 41.2 fl 35.1-43.9 [facility] GFR/1.73 sq M.predicted gunnar g non-blacks MDRD (S/P/Bld) [Vol rate/Area]Ordered By: Nathen Chang on 06-06-2024 Estimated GFR (MDRD) Non-Af Amer 22 Low >60 [facility] Comment on above: mL/min/1.73m2 CKD-EP I Creatinine Equation (2020) Glomerular filtration rate ( GFR) estimation/1.73 sq m using serum, plasma, or whole bOrdered By: Nathen Chang on 06-06-2024 GFR/1.73 sq M.predicted among non-blacks MDRD (S/P/Bld) [Vol rate/Area] 22 mL/min/{1.73_m2} Low >60 [facility] Comment on above: mL/min/1.73m2 CKD-EP I Creatinine Equation (2020) Hematocrit Auto (Bld) [Volum e fraction]Ordered By: Nathen Chang on 06-06-2024 Hematocrit (Bld) [Volume fraction] 42.6 % 40-54 [facility] Hemoglobin measurementOrdere d By: Nathen Chang on 06-06-2024 Hemoglobin (Bld) [Mass/Vol] 13.9 g/dL 13.0-16.5 [facility] Immature granulocytes/100 WB C Auto (Bld)Ordered By: Nathen Chang on 06-06-2024 Immature granulocytes/100 WBC (Bld) 0.800 % 0.0-0.9 [facility] Comment on above: IG% - Immature Granu locytes (promyelocytes, myelocytes and metamyelocytes) > 1% indicates that a LEFT SHIFT is Present. L509.6001on 06-06-2024 CORTISOL 1.84 ug/dL Low 6.02-18.40 [facility] Comment on above: Order Comment: Order Date: 06/07/24 Order Info: 0667-1 - BMP Order Date: 05/31/24 Order Info: 0786-1 - CMP Performed By: #### L 500.4050, L3300.1000 #### [facility] [address] [place], [address] Laboratory - Chemistry and C hemistry - challengeOrdered By: Nathen Chang on 06-06-2024 AST [Catalytic activity/Vol] 28 U/L <38 [facility] Lymphocytes Auto (Unsp spec) [#/Vol]Ordered By: Nathen Chang on 06-06-2024 Lymphocytes (Bld) [#/Vol] 1.23 10*3/uL 0.83-4.51 [facility] Lymphocytes/100 WBC Auto (Un sp spec)Ordered By: Nathen Chang on 06-06-2024 Lymphocytes/100 WBC (Bld) 11.5 % Low 19-41 [facility] MCV (mean corpuscular volume ) determinationOrdered By: Nathen Chang on 06-06-2024 MCV (RBC) [Entitic vol] 88.9 fL 80-94 [facility] Mean corpuscular hemoglobin (MCH) determinationOrdered By: Nathen Chang on 06-06-2024 MCH (RBC) [Entitic mass] 29.0 pg 27.0-32.0 [facility] Mean corpuscular hemoglobin concentration (MCHC) determinationOrdered By: Nathen Chang on 06-06-2024 MCHC (RBC) [Mass/Vol] 32.6 g/dL 32-36 [facility] Mean platelet volume determi nationOrdered By: Nathen Chang on 06-06-2024 Platelet mean volume (Bld) [Entitic vol] 10.0 fL 6.2-12.0 [facility] Microalb:Creat Ratio,Random URon 06-06-2024 Creatinine [Mass/Vol] 79.10 mg/dL Normal 39-259 [facility] Comment on above: Performed By: #### L 500.4050, L3300.1000 #### [facility] [address] [place], [address] MALB:CREAT 28206.3 mg/g CRE Normal [facility] Comment on above: Performed By: #### L 500.4050, L3300.1000 #### [facility] [address] [place], [address] MICROALBUMIN,UR 1936.0 mg/L Normal NO RANGE EST. [facility] Comment on above: Performed By: #### L 500.4050, L3300.1000 #### [facility] [address] [place], [address] Microalbumin/creat ratio urO rdered By: Nathen Chang on 06-06-2024 Urine Microalbumin/Creatinine Ratio 14392.3 mg/g CRE [facility] Monocyte percentageOrdered B y: Nathen Chang on 06-06-2024 Monocytes/100 WBC (Bld) 3.3 % 0-10 [facility] Neutrophil percentageOrdered By: Nathen Chang on 06-06-2024 Neutrophils/100 WBC (Bld) 83.6 % High 47-70 [facility] No Panel InformationOrdered By: Nathen Chang on 06-06-2024 Cortisol AM Sample 1.84 ug/dL Low 6.02-18.40 [facility] Nucleated red blood cell per centageOrdered By: Nathen Chang on 06-06-2024 Nucleated RBC/100 WBC (Bld) [Ratio] 0 % 0-5 [facility] Platelet countOrdered By: Rusty Chang on 06-06-2024 Platelets (Bld) [#/Vol] 232 10*3/uL 150-450 [facility] RBC Auto (Bld) [#/Vol]Ordere d By: Nathen Chang on 06-06-2024 RBC (Bld) [#/Vol] 4.79 10*6/uL 4.6-6.2 [facility] Random urine creatinine amadou urement (mass/volume)Ordered By: Nathen Chang on 06-06-2024 Creatinine Unsp time (U) [Mass/Vol] 79.10 mg/dL 39-259 [facility] Serum creatinine measurement (mass/volume)Ordered By: Nathen Chang on 06-06-2024 Creatinine [Mass/Vol] 2.79 mg/dL High 0.70-1.20 [facility] Serum globulin measurementOr dered By: Nathen Chang on 06-06-2024 Globulin (S) [Mass/Vol] 3.2 g/dL 2.2-4.2 [facility] Serum glucose measurement (m ass/volume)Ordered By: Nathen Chang on 06-06-2024 Glucose [Mass/Vol] 505 mg/dL High 70-99 [facility] Comment on above: Critical Result(s) C alled at: by: Results read back by same. Critical Result(s) Called at: by: Results read back by same.Critical Result(s) Called at 1024: by: Nadia hooper [facility]. ? Results read back by same.Previous reported result: 505 mg/dLEdited by: LOGAN on 06/07/24:0533 AMENDED REPORT 06/07/24 0533 GLU previously reported as: 505 *H mg/dL Critical Result(s) Called at: by: Results read back by same. Serum or plasma alanine diaz otransferase (ALT) measurementOrdered By: Nathen Chang on 06-06-2024 ALT [Catalytic activity/Vol] 18 U/L <47 [facility] Serum or plasma albumin amadou urement (mass/volume)Ordered By: Nathen Chang on 06-06-2024 Albumin [Mass/Vol] 3.5 g/dL 3.4-4.8 [facility] Serum or plasma albumin/glob ulin mass ratioOrdered By: Nathen Chang on 06-06-2024 Albumin/Globulin [Mass ratio] 1.1 {ratio} 0.9-2.4 [facility] Serum or plasma alkaline esther sphatase measurementOrdered By: Nathen Chang on 06-06-2024 ALP [Catalytic activity/Vol] 63 U/L 40-129 [facility] Serum or plasma anion gap de termination (moles/volume)Ordered By: Nathen Chang on 06-06-2024 Anion gap [Moles/Vol] 14 mmol/L 5-15 [facility] Serum or plasma calcium amadou urement (mass/volume)Ordered By: Nathen Chang on 06-06-2024 Calcium [Mass/Vol] 9.3 mg/dL 7.6-11.0 [facility] Serum or plasma potassium me asurementOrdered By: Nathen Chang on 06-06-2024 Potassium [Moles/Vol] 6.4 mmol/L High 3.3-5.1 [facility] Comment on above: Critical Result(s) C alled at 1024: by: Nadia Riley. Results read back by same. Serum or plasma sodium measu rement (moles/volume)Ordered By: Nathen Chang on 06-06-2024 Sodium [Moles/Vol] 134 mmol/L 133-145 [facility] Serum or plasma urea nitroge n measurement (mass/volume)Ordered By: Nathen Chang on 06-06-2024 Urea nitrogen [Mass/Vol] 50 mg/dL High 4-19 [facility] Total proteinOrdered By: Shani Chang on 06-06-2024 Protein [Mass/Vol] 6.6 g/dL 5.9-8.4 [facility] Urine albumin measurement [facility] detection limit of 20 mg/L or less (mass/volume)Ordered By: Nathen Chang on 06-06-2024 Albumin DL <= 20 mg/L (U) [Mass/Vol] 1936.0 mg/L NO RANGE EST. [facility] White blood cell (WBC) count Ordered By: Nathen Chang on 06-06-2024 WBC (Bld) [#/Vol] 10.7 10*3/uL 4.4-11.0 [facility] OT D/C of Non Returning Pton 04-14-2024 OT D/C of Non Returning Pt [facility] Occupational Therapy [facility] [address] [place] [address]. [address] [place] [address] / REHABILITATION SERVICES DISCHARGE SUMMARY MR#: [id number] Acct: [id number] Name: PARK SOUSA Rep #: [id number] : 1945 78 From: Stefany Currie OTR/L, CHT Referring Dr.: Dr. Nathen Chang MD Status: REG R CR Eval Date: Discharge Date: Patient Information Patient Information: PARK SOUSA was seen in my office for initial evaluation on 10/06/23. The following Plan of Care was established for this patient: Anticipated Interventions Anticipated Interventions: Education re assistive Equipment, Education re Diagnosis, Education re Life-long lymphedema Management, Education re Skin Care and Precautions, Education re Self Massage Techniques, Education re Correct Donning Tech,Care Wearing Sched Comp Garments, Caregiver Training and Home Program Other Interventions: velcro closure compression alternatives Last Seen Last Seen: This patient was last seen in our office for inital eval on 10/06/23 . Pertinent comments regarding their Occupational therapy will appear below: no further apts scheduled and due to time lapse in services pt is d/c At this point I will be discontinuing this patient from occupational therapy. I would be happy to see this patient again in the future if found appropriate by the physician. Thank you! RAISA Izaguirre/Jaimie, CHT 04/14/24 1144 CC: Dr. Nathen Chang MD MK Signed Normal [facility] OT General Evaluationon OT General Evaluation [facility] [address] [place] [address]. [address] [place] [address] / REHABILITATION SERVICES INITIAL EVALUATION MR#: [id number] Acct: [id number] Name: PARK SOUSA Rep #: [id number] : 1945 78 From: Stefany KLINE/Jaimie, HUANT Referring Dr.: Dr. Nathen Chang MD Status: REG R CR Insurance: [employer] MEDICARE PPO Eval Date: MEDICAID Patient's Visit Information Visit Information Visit Information: PARK SOUSA is a 78 year old M, referred to Occupational Therapy by Dr. Nathen Chang MD, with a diagnosis of LE edema. Date of Evaluation: 10/06/23 Occupational Therapist: Stefany Currie, RAISA/Jaimie, CHT Subjective Subjective: This 77 year old male was seen for OT eval with dx of BLE lymphedema. pt also has hx of CHF, PVD. pt states DM among all other issues from pneumonia- Hospitalized 5 days about 6-8 or more weeks ago due to pneumonia. pt did go home with O2. as well as home health. pt using O2 at night for 2-3 hours- pts states she feels she has noticed swelling but with water pills does decrease edema- pt and pts states she does have a pair compression socks but they both can not get them on. ( copper fit) Lymphedema (Circumferential Measure) Mid-foot: right 22cm left 23cm Ankle: right 28cm left 30cm Lower calf: right 30cm left 31cm Largest calf: right 40cm left 40cm Below knee: right 37cm left 37cm Lower Limb Functional Index Lower Extremity Functional Score: 25 Goals Goal: Patient will demonstrate a 20% reduction in edema by discharge: Yes Goal: Patient will demonstrate adequate knowledge of self-massage by the end of the second week.: Yes Goal: Patient will demonstrate adequate knowledge of skin care and precautions by the end of the first week.: Yes Goal: Patient will demonstrate adequate knowledge of therapeutic exercises by discharge.: Yes Goal: Patient will select an appropriate compression garment and demonstrate adequate knowledge of correct donning technique, care and wearing schedule by discharge.: Yes Goal: Patient will voice understanding of need to replace compression garment every four to six months by discharge.: Yes Rehabilitation General Assessment: pt dem with bilateral LE edema that limits pts with ambulation and driving. Pt would benefit from skilled OT services 3-4 visits to ed. pt on mtg. of LE edema/lymphedema. Pt with today and both were ed. on lymph stimulation ex. initiation at neck and working down to legs- pt and demo understand- therapist also ed, pt on skin care- avoiding sitting for long periods of time ( ed. to get up and move every hour for 15 min) pt and pts receptive- did bring shay compression socks with them- therapist did ed. them on using thick rubber gloves to assist in donning the socks- was receptive and feels she will be able to get them on. Therapist ed. pt and on compression class of 20-30mmHg for medical grade and insurance to possibly cover garment- ( therapist also ed. pt and insurance does not always pay for compression socks) pt and demo understanding. therapist ed. on skin care and precautions. Rehabilitation Potential: Questionable Anticipated Interventions Anticipated Interventions: Education re assistive Equipment, Education re Diagnosis, Education re Life-long lymphedema Management, Education re Skin Care and Precautions, Education re Self Massage Techniques, Education re Correct Donning Tech,Care Wearing Sched Comp Garments, Caregiver Training and Home Program Other Interventions: velcro closure compression alternatives Visit Plan TEXT: Thank you for the opportunity to evaluate your patient. For Medicare and Medicare HMO plans, please review the plan of care and approve it. It will need to be FAXED BACK to us at [phone] for Medicare purposes. Please let me know if there are questions or concerns regarding this plan of care. Physician Signature: Date : 04/14/24 1143 CC: Dr. Nathen Chang MD JUNO Signed For Medicare only, by signing this I certify the plan of care. Physicians Signature Date Normal [facility] Toe(s) Min 2 Viewson 11-12-2 024 Toe(s) Min 2 Views [facility] [address] [place] [address] Toe(s) Min 2 Views MR#: [id number] Acct: [id number] Name: PARK SOUSA Rep #: [id number] : 1945 M 78 From: Yung Gamble DO PCP: Dr. Nathen Chang MD Status: REG CLI Study: Toe(s) Min 2 Views Date of Exam: 02/16/24 Exam# [id number] Ordering Dr: Karson Davis MD [id number] INDICATION: Injury EXAMINATION/TECHNIQUE : X-RAY - RIGHT FOOT XR Toes 3 VIEWS COMPARISON: __ FINDINGS: SOFT TISSUES: No soft tissue swelling or gas. No radiopaque foreign body. BONES/JOINTS: Probable nondisplaced fracture of the base of the distal phalanx of the first toe. Normal alignment. Preservation of the joint space.. No sclerotic or destructive changes observed. RAD/Toe(s) Min 2 Views IMPRESSION: Probable nondisplaced fracture of the base of the distal phalanx of the first toe. Electronically Signed: Yung Gamble DO at 9:48 EST Reading Location ID and State: [address] [place] [address] Tel [phone], Service support , CC: Dr. Karson Davis MD; Dr. Nathen Chang MD [employer]: Signed Normal [facility] Urgent Care Visit Reporton 1 Urgent Care Visit Report [facility] [address] [facility], [address] [place] [id number] OFFICE VISIT Date of Service: 01/16/24 MR#: [id number] Acct: [id number] Name: PARK SOUSA Rep #: [id number] : 1945 Provider: RUTH ANN Garcias Age/Sex: 78/M Location: [facility] [place] [facility] Status: Signed Intake Vital Signs 08/14/23 10:26 01/16/24 11:03 Height 6 ft 6 ft Weight: 226 lb BMI 30.6 BP 124/76 H Position Sitting Pulse 73 Temp 97.6 F L Temp Source Temporal Pulse Oximetry (%) 97 Oxygen Delivery Method room air Intake Visit Reasons: L EAR PAIN Accompanied by: Self Allergies amiodarone Adverse Reaction (Severe, Verified 01/16/24 11:04) significant effect on lung function per PFT 09/19/17 Have you fallen in the past year?: No PFSH Medical History Atherosclerosis of coronary artery of [place] heart without angina pectoris Cardiac arrest with ventricular fibrillation (04/07/12) Chronic kidney disease Congestive heart failure (CHF) COPD (chronic obstructive pulmonary disease) Essential hypertension Former smoker History of diabetes mellitus History of hypertension Hyperlipidemia Hypothyroidism 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 Social History household members: significant other Smoking Status: Former smoker alcohol intake: never substance use type: does not use HPI HPI Details: PARK SOUSA, is a 78 M who presents to the office today for left ear pain over the past 3-4 days. Patient states that the pain is only present with swallowing and he denies recent infection or otorrhea. Patient denies history of similar symptoms or frequent OM. Patient states he is otherwise asymptomatic and has not been using any treatment for this issue. Patient states that he will occasionally utilize Q-tips to clean his ears but not on a regular basis. Patient denies trauma. ROS Const Constitutional: No body ache, chills, fatigue or fever(s) ENT ENT: Positive for ear or mastoid pain and ear pressure; No abnormal hearing, ear discharge, tinnitus, dizziness/vertigo, nasal congestion or nasal discharge Neuro Neurology: No abnormal hearing Endo Endocrine: No fatigue Exam Const General: cooperative, comfortable and no acute distress HENMT Ears: EAC abnormal cerumen impaction bilaterally; no erythema and no edema and TM abnormal wth effusion serous bilaterally Neck Lymphatic: no lymphadenopathy noted Office Procedures Cerumen Removal Procedure BMS Cerumen Removal Procedure Method of removal: irrigation From which ear canal was the cerumen removed: bilateral Amount of Cerumen: moderate Patient tolerated procedure: with pain Complications: none Coding Level of Care Code Off vis,new,level 3 History Problem Focused Exam Problem Focused Medical Decision Making Low Complexity Diagnoses Impacted cerumen of both ears H61.23 Assessment and Plan Assessment and Plan (1) Impacted cerumen of both ears: Status: Acute Plan: Irrigation of the EAC accomplished in office without complication. Discussed appropriate ear care and f/u if signs of bleeding, discharge, or worsening pain. Encouraged trial of OTC Flonase and Zyrtec to improve effusion of the middle ear. Patient voiced understanding and agreement with plan. Counseling provided on avoiding insertion of objects or devices into the EAC due to risk for trauma and recurrent cerumen impaction. Orders: Orders Cerumen Removal BMS Today H61.23 - Impacted cerumen, bilateral Clinical Quality Measures Falls Risk Screening/Assistive Devices Have you fallen in the past year?: No 01/16/24 1135 Date Andrea Nur Signature: Date (if applicable) CC: Normal [facility] CBC W/Diff, Automatedon 10-04 Absolute Lymph 1.34 X10 3/uL Normal 0.83-4.51 [facility] Comment on above: Order Comment: Order Date: 06/07/24 Order Info: 0667-1 - BMP Order Date: 05/31/24 Order Info: 0786- - CMP Performed By: #### L 500.4050, L3300.1000 #### [facility] [address] [place], [address] Absolute Neut 4.7 X10 3/uL Normal 2.0-7.7 [facility] Comment on above: Order Comment: Order Date: 06/07/24 Order Info: 0667- - BMP Order Date: 05/31/24 Order Info: 0786-1 - CMP Performed By: #### L 500.4050, L3300.1000 #### [facility] [address] [place], [address] Basophils/100 WBC (Bld) 0.6 % Normal 0-1 [facility] Comment on above: Order Comment: Order Date: 06/07/24 Order Info: 0667- - BMP Order Date: 05/31/24 Order Info: 0786- - CMP Performed By: #### L 500.4050, L3300.1000 #### [facility] [address] [place], [address] Eosinophils/100 WBC (Bld) 3.4 % Normal 0-5 [facility] Comment on above: Order Comment: Order Date: 06/07/24 Order Info: 0667- - BMP Order Date: 05/31/24 Order Info: 0786- - CMP Performed By: #### L 500.4050, L3300.1000 #### [facility] [address] [place], [address] Erythrocyte distribution width (RBC) [Ratio] 14.4 % Normal 11.6-14.6 [facility] Comment on above: Order Comment: Order Date: 06/07/24 Order Info: 0667-1 - BMP Order Date: 05/31/24 Order Info: 0786-1 - CMP Performed By: #### L 500.4050, L3300.1000 #### [facility] [address] [place], [address] Hematocrit (Bld) [Volume fraction] 43.1 % Normal 40-54 [facility] [facility] Comment on above: Order Comment: Order Date: 06/07/24 Order Info: 0667-1 - BMP Order Date: 05/31/24 Order Info: 0786-1 - CMP Performed By: #### L 500.4050, [id number] #### [facility] [address] [place], [address] Hemoglobin (Bld) [Mass/Vol] 13.7 g/dL Normal 13.0-16.5 [facility] Comment on above: Order Comment: Order Date: 06/07/24 Order Info: 0667-1 - BMP Order Date: 05/31/24 Order Info: 0786-1 - CMP Performed By: #### L 500.4050, L3300.1000 #### [facility] [address] [place], [address] IG% 0.600 Normal 0.0-0.9 [facility] Comment on above: Order Comment: Order Date: 06/07/24 Order Info: 0667-1 - BMP Order Date: 05/31/24 Order Info: 0786-1 - CMP Result Comment: IG% - Immature Granulocytes (promyelocytes, myelocytes and metamyelocytes) > 1% indicates that a LEFT SHIFT is Present. Performed By: #### L 500.4050, L3300.1000 #### [facility] [address] [place], [address] Lymphocytes/100 WBC (Bld) 18.8 % Low 19-41 [facility] Comment on above: Order Comment: Order Date: 06/07/24 Order Info: 0667-1 - BMP Order Date: 05/31/24 Order Info: 0786-1 - CMP Performed By: #### L [id number], [id number] #### [facility] [address] [place], [address] MCH (RBC) [Entitic mass] 28.9 pg Normal 27.0-32.0 [facility] Comment on above: Order Comment: Order Date: 06/07/24 Order Info: 0667-1 - BMP Order Date: 05/31/24 Order Info: 0786-1 - CMP Performed By: #### L [id number], [id number] #### [facility] [address] [place], [address] MCHC (RBC) [Mass/Vol] 31.8 g/dL Low 32-36 [facility] Comment on above: Order Comment: Order Date: 06/07/24 Order Info: 67- - BMP Order Date: 05/31/24 Order Info: 0786- - CMP Performed By: #### L 500.4050, [id number] #### [facility] [address] [place], [address] MCV (RBC) [Entitic vol] 90.9 fL Normal 80-94 [facility] Comment on above: Order Comment: Order Date: 06/07/24 Order Info: 0667- - BMP Order Date: 05/31/24 Order Info: 0786- - CMP Performed By: #### L [id number], [id number] #### [facility] [address] [place], [address] Monocytes/100 WBC (Bld) 11.0 % High 0-10 [facility] Comment on above: Order Comment: Order Date: 06/07/24 Order Info: 0667- - BMP Order Date: 05/31/24 Order Info: 0786- - CMP Performed By: #### L 500.4050, [id number] #### [facility] [address] [place], [address] Neutrophils/100 WBC (Bld) 65.6 % Normal 47-70 [facility] Comment on above: Order Comment: Order Date: 06/07/24 Order Info: 0667-1 - BMP Order Date: 05/31/24 Order Info: 0786-1 - CMP Performed By: #### L [id number], [id number] #### [facility] [address] [place], [address] Nucleated RBC (Bld) [#/Vol] 0 10*3/uL Normal 0-5 [facility] Comment on above: Order Comment: Order Date: 06/07/24 Order Info: 0667-1 - BMP Order Date: 05/31/24 Order Info: 0786-1 - CMP Performed By: #### L 500.4050, [id number] #### [facility] [address] [place], [address] Platelet mean volume (Bld) [Entitic vol] 11.0 fL Normal 6.2-12.0 [facility] Comment on above: Order Comment: Order Date: 06/07/24 Order Info: 0667-1 - BMP Order Date: 05/31/24 Order Info: 0786-1 - CMP Performed By: #### L 500.4050, [id number] #### [facility] [address] [place], [address] Platelets (Bld) [#/Vol] 182 10*3/uL Normal 150-450 [facility] Comment on above: Order Comment: Order Date: 06/07/24 Order Info: 0667-1 - BMP Order Date: 05/31/24 Order Info: 0786-1 - CMP Performed By: #### L 500.4050, [id number] #### [facility] [address] [place], [address] RBC (Bld) [#/Vol] 4.74 10*6/uL Normal 4.6-6.2 [facility] Comment on above: Order Comment: Order Date: 06/07/24 Order Info: 0667-1 - BMP Order Date: 05/31/24 Order Info: 0786-1 - CMP Performed By: #### L 500.4050, [id number] #### [facility] [address] [place], [address] RDW SD 47.9 fl High 35.1-43.9 [facility] Comment on above: Order Comment: Order Date: 06/07/24 Order Info: 0667-1 - BMP Order Date: 05/31/24 Order Info: 0786-1 - CMP Performed By: #### L 500.4050, [id number] #### [facility] [address] [place], [address] WBC (Bld) [#/Vol] 7.1 10*3/uL Normal 4.4-11.0 [facility] Comment on above: Order Comment: Order Date: 06/07/24 Order Info: 0667-1 - BMP Order Date: 05/31/24 Order Info: 0786-1 - CMP Performed By: #### L 500.4050, [id number] #### [facility] [address] [place], [address] Comprehensive Metabolic Prof [facility] 10-15-2023 Albumin [Mass/Vol] 3.0 g/dL Low 3.2-5.0 [facility] Comment on above: Order Comment: Order Date: 06/07/24 Order Info: 0667-1 - BMP Order Date: 05/31/24 Order Info: 0786-1 - CMP Performed By: #### L 500.4050, [id number] #### [facility] [address] [place], [address] Albumin/Globulin [Mass ratio] 0.8 {ratio} Low 0.9-2.4 [facility] Comment on above: Order Comment: Order Date: 06/07/24 Order Info: 0667-1 - BMP Order Date: 05/31/24 Order Info: 0786-1 - CMP Performed By: #### L 500.4050, [id number] #### [facility] [address] [place], [address] ALK P 62 U/L Normal 45-117 [facility] Comment on above: Order Comment: Order Date: 06/07/24 Order Info: 0667-1 - BMP Order Date: 05/31/24 Order Info: 0786-1 - CMP Performed By: #### L 500.4050, [id number] #### [facility] [address] [place], [place], [address] ALT [Catalytic activity/Vol] 21 U/L Normal 16-61 [facility] Comment on above: Order Comment: Order Date: 06/07/24 Order Info: 0667- - BMP Order Date: 05/31/24 Order Info: 0786-1 - CMP Performed By: #### L 500.4050, [id number] #### [facility] [address] [place], [place], [address] AST [Catalytic activity/Vol] 25 U/L Normal 15-37 [facility] Comment on above: Order Comment: Order Date: 06/07/24 Order Info: 0667- - BMP Order Date: 05/31/24 Order Info: 0786-1 - CMP Performed By: #### L 500.4050, [id number] #### [facility] [address] [place], [address] Bilirubin [Mass/Vol] 0.40 mg/dL Normal 0.20-1.00 [facility] Comment on above: Order Comment: Order Date: 06/07/24 Order Info: 0667-1 - BMP Order Date: 05/31/24 Order Info: 0786-1 - CMP Result Comment: For patients on eltrombopag therapy, use of Dimension Armstrong TBIL is not recommended. Performed By: #### L 500.4050, [id number] #### [facility] [address] [place], [address] BUN/CRE 18.0 RATIO Normal 10-20 [facility] Comment on above: Order Comment: Order Date: 06/07/24 Order Info: 0667-1 - BMP Order Date: 05/31/24 Order Info: 0786-1 - CMP Performed By: #### L 500.4050, [id number] #### [facility] [address] [place], [address] CA,Total 9.6 mg/dL Normal 8.5-10.1 [facility] Comment on above: Order Comment: Order Date: 06/07/24 Order Info: 0667-1 - BMP Order Date: 05/31/24 Order Info: 0786-1 - CMP Performed By: #### L 500.4050, [id number] #### [facility] [address] [place], [address] Chloride [Moles/Vol] 100 mmol/L Normal 98-107 [facility] Comment on above: Order Comment: Order Date: 06/07/24 Order Info: 0667-1 - BMP Order Date: 05/31/24 Order Info: 0786- - CMP Performed By: #### L 500.4050, [id number] #### [facility] [address] [place], [address] CO2 [Moles/Vol] 29.0 mmol/L Normal 21.0-32.0 [facility] Comment on above: Order Comment: Order Date: 06/07/24 Order Info: 0667-1 - BMP Order Date: 05/31/24 Order Info: 0786- - CMP Performed By: #### L 500.4050, [id number] #### [facility] [address] [place], [address] Creatinine [Mass/Vol] 2.45 mg/dL High 0.70-1.30 [facility] Comment on above: Order Comment: Order Date: 06/07/24 Order Info: 0667-1 - BMP Order Date: 05/31/24 Order Info: 0786-1 - CMP Result Comment: The validity of the calculated GFR GFRAA in patients over 70 years has not been determined. Clinical correlation is essential. Performed By: #### L 500.4050, [id number] #### [facility] [address] [place], [address] EST GFR - AA 33 mL/min Low >60 [facility] Comment on above: Order Comment: Order Date: 06/07/24 Order Info: 0667-1 - BMP Order Date: 05/31/24 Order Info: 0786-1 - CMP Result Comment: Afri can [place] GFR Calc Performed By: #### L 500.4050, [id number] #### [facility] [address] [place], [address] GAP 6 Normal 5-15 [facility] Comment on above: Order Comment: Order Date: 06/07/24 Order Info: 0667- - BMP Order Date: 05/31/24 Order Info: 0786- - CMP Performed By: #### L 500.4050, [id number] #### [facility] [address] [place], [address] GFR/1.73 sq M.predicted among non-blacks MDRD (S/P/Bld) [Vol rate/Area] 27 mL/min/{1.73_m2} Low >60 [facility] Comment on above: Order Comment: Order Date: 06/07/24 Order Info: 0667-1 - BMP Order Date: 05/31/24 Order Info: 0786-1 - CMP Result Comment: Non- GFR Calc Performed By: #### L 500.4050, [id number] #### [facility] [address] [place], [address] Globulin (S) [Mass/Vol] 4.0 g/dL Normal 2.2-4.2 [facility] Comment on above: Order Comment: Order Date: 06/07/24 Order Info: 0667-1 - BMP Order Date: 05/31/24 Order Info: 0786-1 - CMP Performed By: #### L 500.4050, [id number] #### [facility] [address] [place], [address] Glucose [Mass/Vol] 240 mg/dL High 74-106 [facility] Comment on above: Order Comment: Order Date: 06/07/24 Order Info: 0667-1 - BMP Order Date: 05/31/24 Order Info: 0786-1 - CMP Result Comment: Gluc ose result greater than or equal to 200 mg/dL suggests DIABETES MELLITUS per A.D.A. criteria. Performed By: #### L 500.4050, [id number] #### [facility] [address] [place], [address] Potassium [Moles/Vol] 4.5 mmol/L Normal 3.5-5.1 [facility] Comment on above: Order Comment: Order Date: 06/07/24 Order Info: 0667-1 - BMP Order Date: 05/31/24 Order Info: 0786- - CMP Performed By: #### L 500.4050, [id number] #### [facility] [address] [place], [address] Sodium [Moles/Vol] 135 mmol/L Low 136-145 [facility] Comment on above: Order Comment: Order Date: 06/07/24 Order Info: 0667-1 - BMP Order Date: 05/31/24 Order Info: 0786- - CMP Performed By: #### L 500.4050, [id number] #### [facility] [address] [place], [address] T PROT 7.0 g/dL Normal 6.4-8.2 [facility] Comment on above: Order Comment: Order Date: 06/07/24 Order Info: 0667-1 - BMP Order Date: 05/31/24 Order Info: 0786-1 - CMP Performed By: #### L 500.4050, [id number] #### [facility] [address] [place], [address] Urea nitrogen [Mass/Vol] 44 mg/dL High 7-18 [facility] Comment on above: Order Comment: Order Date: 06/07/24 Order Info: 0667-1 - BMP Order Date: 05/31/24 Order Info: 0786-1 - CMP Performed By: #### L 500.4050, [id number] #### [facility] [address] [place], [place], [address] Hemoglobin A1con 10-15-2023 HbA1c (Bld) [Mass fraction] 9.0 % High 3.8-5.6 [facility] Comment on above: Order Comment: Order Date: 06/07/24 Order Info: 0667-1 - BMP Order Date: 05/31/24 Order Info: 0786-1 - CMP Result Comment: Norm al < 5.7 % Prediabetic 5.7 - 6.4 % Diabetic >or= 6.5 % Please note range changes. Performed By: #### L 500.4050, [id number] #### [facility] [address] [place], [place], [address] Vitamin D,25 Hydroxyon 10-14 Vitamin D 25-OH 35.0 ng/mL Normal [facility] Comment on above: Order Comment: Order Date: 06/07/24 Order Info: 0667-1 - BMP Order Date: 05/31/24 Order Info: 0786-1 - CMP Result Comment: Anabella min D 25(OH) Status Range Deficiency <20 ng/mL (50nmol/L) Insufficiency 20 - 30 ng/mL (50 - 75 nmol/L) Sufficiency 30 - 100 ng/mL (75 - 250 nmol/L) Toxicity >100 ng/mL (>250 nmol/L) Performed By: #### L 500.4050, [id number] #### [facility] [address] [place], [place], [address] Assessment of wrist artery p atency prior to arterial punctureOrdered By: Yassine Lopez on 08-14-2023 Arterial patency Wrist artery --pre arterial puncture Positive [facility] Base excessOrdered By: Shefali Lopez on 08-14-2023 Base excess Calc (BldV) [Moles/Vol] -3 mmol/L -2-2 [facility] Basophil percentageOrdered B y: Yassine Lopez on 08-14-2023 Basophil percentage 24 [facility] Bas[facility]/100 WBC (Bld) 92 % 95-99 [facility] Measurement, pHOrdered By: Leonor Lopez on 08-14-2023 pH (Unsp spec) 7.37 [pH] 7.35-7.45 [facility] No Panel InformationOrdered By: Yassine Lopez on 08-14-2023 Arterial Blood Partial Pressure CO2 38.9 mmHg 35-45 [facility] Arterial Blood Partial Pressure O2 64 mmHG 75-100 [facility] Blood Gas Bicarbonate Actual 22.5 mmol/L 22-26 [facility] Blood Gas Oxygen Percent 5.0 [facility] Blood Gas Sample Site R Radial [facility] Blood Gas Specimen Type ART [facility] Blood Gas Vent Mode Not entered [facility] Oxygen Delivery Device Cannula [facility] Absolute lymphocyte countOrd ered By: Yassine Lopez on 08-13-2023 Lymphocytes Auto (Unsp spec) [#/Vol] 0.75 10*3/uL 0.83-4.51 [facility] Automated lymphocyte count a s percentage of total leukocytesOrdered By: Yassine Lopez on 08-13-2023 Lymphocytes/100 WBC Auto (Unsp spec) 5.8 % 19-41 [facility] Basophil percentageOrdered B y: Yassine Lopez on 08-13-2023 Basophils/100 WBC (Bld) 0.1 % 0-1 [facility] Chloride [Moles/Vol] 101 mmol/L 98-107 [facility] Eosinophils/100 WBC (Bld) 0.3 % 0-5 [facility] Glucose [Mass/Vol] 271 mg/dL 74-106 [facility] Comment on above: Glucose result great er than or equal to 200 mg/dLsuggests DIABETES MELLITUS per A.D.A. criteria. Hemoglobin (Bld) [Mass/Vol] 14.8 g/dL 13.0-16.5 [facility] Monocytes/100 WBC (Bld) 4.4 % 0-10 [facility] Neutrophils (Bld) [#/Vol] 11.2 10*3/uL 2.0-7.7 [facility] Neutrophils/100 WBC (Bld) 86.6 % 47-70 [facility] Potassium [Moles/Vol] 5.0 mmol/L 3.5-5.1 [facility] ster [facility] Sodium [Moles/Vol] 133 mmol/L 136-145 [facility] r [facility] WBC (Bld) [#/Vol] 12.9 10*3/uL 4.4-11.0 [facility] Blood manual differential co mment interpretation (narrative result)Ordered By: Yassine Lopez on 08-13-2023 Manual differential comment Shankar (Bld) [Interp] SCANNED [facility] Determination of erythrocyte mean corpuscular volume (MCV)Ordered By: Yassine Lopez on 08-13-2023 MCV (RBC) [Entitic vol] 90.4 fL 80-94 [facility] Erythrocyte distribution wid th ratioOrdered By: Yassine Lopez on 08-13-2023 Erythrocyte distribution width (RBC) [Ratio] 14.0 % 11.6-14.6 [facility] Erythrocyte distribution wid th standard deviationOrdered By: Yassine Lopez on 08-13-2023 Erythrocyte distribution width (RBC) [Entitic vol] 46.0 fL 35.1-43.9 [facility] Hematocrit Auto (Bld) [Volum e fraction]Ordered By: Yassine Lopez on 08-13-2023 Hematocrit (Bld) [Volume fraction] 45.2 % 40-54 [facility] Immature granulocytes/100 WB C Auto (Bld)Ordered By: Yassine Lopez on 08-13-2023 Immature granulocytes/100 WBC (Bld) 2.800 % 0.0-0.9 [facility] Comment on above: IG% - Immature Granu locytes (promyelocytes, myelocytes and metamyelocytes) > 1% indicates that a LEFT SHIFT is Present. Laboratory - Chemistry and C hemistry - challengeOrdered By: Yassine Lopez on 08-13-2023 CO2 [Moles/Vol] 26.0 mmol/L 21.0-32.0 [facility] Magnesium [Mass/Vol] 2.2 mg/dL 1.6-2.6 [facility] Natriuretic peptide B (Bld) [Mass/Vol] 468.7 pg/mL 0-100 [facility] Urea nitrogen/Creatinine [Mass ratio] 17.2 mg/mg 10-20 [facility] - Hematology and Cell countsOrdered By: Yassine Lopez on 08-13-2023 MCH (RBC) [Entitic mass] 29.6 pg 27.0-32.0 [facility] MCHC (RBC) [Mass/Vol] 32.7 g/dL 32-36 [facility] Nucleated RBC/100 WBC (Bld) [Ratio] 0 % 0-5 [facility] Platelet mean volume (Bld) [Entitic vol] 11.0 fL 6.2-12.0 [facility] Platelets (Bld) [#/Vol] 181 10*3/uL 150-450 [facility] No Panel InformationOrdered By: Yassine Lopez on 08-13-2023 Estimated Creatinine Clearance Calc 31.34 ml/min [facility] Estimated GFR (MDRD) Amer 31 mL/min >60 [facility] Comment on above: GFR Calc Estimated GFR (MDRD) Non-Af Amer 26 mL/min >60 [facility] Comment on above: Non- GFR Calc RBC Auto (Bld) [#/Vol]Ordere d By: Yassine Lopez on 08-13-2023 RBC (Bld) [#/Vol] 5.00 10*6/uL 4.6-6.2 [facility] Serum or plasma calcium amadou urement (mass/volume)Ordered By: Yassine Lopez on 08-13-2023 Calcium [Mass/Vol] 8.9 mg/dL 8.5-10.1 [facility] Serum or plasma creatinine m easurement (mass/volume)Ordered By: Yassine Lopez on 08-13-2023 Creatinine [Mass/Vol] 2.56 mg/dL 0.70-1.30 [facility] Comment on above: The validity of the calculated GFR & GFRAA in patients over 70 years has not been determined. Clinical correlation is essential. Serum or plasma urea nitroge n measurement (mass/volume)Ordered By: Yassine Lopez on 08-13-2023 Urea nitrogen [Mass/Vol] 44 mg/dL 7-18 [facility] Thin prep Papanicolaou smear with manual screeningOrdered By: Yassine Lopez on 08-13-2023 Thin prep Papanicolaou smear with manual screening 6 5-15 [facility] Absolute lymphocyte countOrd ered By: Solomon Griffiths on 08-12-2023 Lymphocytes Auto (Unsp spec) [#/Vol] 0.90 10*3/uL 0.83-4.51 [facility] Automated lymphocyte count a s percentage of total leukocytesOrdered By: Solomon Griffiths on 08-12-2023 Lymphocytes/100 WBC Auto (Unsp spec) 9.0 % 19-41 [facility] Basophil percentageOrdered B y: Solomon Griffiths on 08-12-2023 Basophils/100 WBC (Bld) 0.5 % 0-1 [facility] Chloride [Moles/Vol] 102 mmol/L 98-107 [facility] Eosinophils/100 WBC (Bld) 1.7 % 0-5 [facility] Glucose [Mass/Vol] 284 mg/dL 74-106 [facility] Comment on above: Glucose result great er than or equal to 200 mg/dLsuggests DIABETES MELLITUS per A.D.A. criteria. Hemoglobin (Bld) [Mass/Vol] 13.4 g/dL 13.0-16.5 [facility] Monocytes/100 WBC (Bld) 8.8 % 0-10 [facility] Neutrophils (Bld) [#/Vol] 8.0 10*3/uL 2.0-7.7 [facility] Neutrophils/100 WBC (Bld) 79.6 % 47-70 [facility] Potassium [Moles/Vol] 4.5 mmol/L 3.5-5.1 [facility] Sodium [Moles/Vol] 135 mmol/L 136-145 [facility] WBC (Bld) [#/Vol] 10.0 10*3/uL 4.4-11.0 [facility] Determination of erythrocyte mean corpuscular volume (MCV)Ordered By: Solomon Griffiths on 08-12-2023 MCV (RBC) [Entitic vol] 90.2 fL 80-94 [facility] Erythrocyte distribution wid th ratioOrdered By: Solomon Griffiths on 08-12-2023 Erythrocyte distribution width (RBC) [Ratio] 13.5 % 11.6-14.6 [facility] Erythrocyte distribution wid th standard deviationOrdered By: Solomon Griffiths on 08-12-2023 Erythrocyte distribution width (RBC) [Entitic vol] 44.4 fL 35.1-43.9 [facility] Hematocrit Auto (Bld) [Volum e fraction]Ordered By: Solomon Griffiths on 08-12-2023 Hematocrit (Bld) [Volume fraction] 41.4 % 40-54 [facility] Immature granulocytes/100 WB C Auto (Bld)Ordered By: Solomon Griffiths on 08-12-2023 Immature granulocytes/100 WBC (Bld) 0.400 % 0.0-0.9 [facility] Comment on above: IG% - Immature Granu locytes (promyelocytes, myelocytes and metamyelocytes) > 1% indicates that a LEFT SHIFT is Present. Laboratory - Chemistry and C hemistry - challengeOrdered By: Solomon Griffiths on 08-12-2023 CO2 [Moles/Vol] 29.0 mmol/L 21.0-32.0 [facility] Natriuretic peptide B (Bld) [Mass/Vol] 552.0 pg/mL 0-100 [facility] Urea nitrogen/Creatinine [Mass ratio] 13.2 mg/mg 10-20 [facility] - Hematology and Cell countsOrdered By: Solomon Griffiths on 08-12-2023 MCH (RBC) [Entitic mass] 29.2 pg 27.0-32.0 [facility] MCHC (RBC) [Mass/Vol] 32.4 g/dL 32-36 [facility] Nucleated RBC/100 WBC (Bld) [Ratio] 0 % 0-5 [facility] Platelet mean volume (Bld) [Entitic vol] 10.5 fL 6.2-12.0 [facility] Platelets (Bld) [#/Vol] 171 10*3/uL 150-450 [facility] - Microbiology an d Antimicrobial susceptibilityOrdered By: Solomon Griffiths on 08-12-2023 SARS-CoV-2 (COVID-19) RNA LEANNE+probe Ql (Unsp spec) [facility] No Panel InformationOrdered By: Solomon Griffiths on 08-12-2023 Estimated Creatinine Clearance Calc 41.02 ml/min [facility] Estimated GFR (MDRD) Amer 43 mL/min >60 [facility] Comment on above: GFR Calc Estimated GFR (MDRD) Non-Af Amer 35 mL/min >60 [facility] Comment on above: Non- GFR Calc Troponin I High Sensitivity 36 pg/mL 3.0-78.0 [facility] Comment on above: Please Note: New Yuliya t Units and Gender Specific Reference Ranges. For more information see Policy Stat Procedure [facility] High Sensitivity Troponin (TNIH) and attachments. RBC Auto (Bld) [#/Vol]Ordere d By: Solomon Griffiths on 08-12-2023 RBC (Bld) [#/Vol] 4.59 10*6/uL 4.6-6.2 [facility] Serum or plasma calcium amadou urement (mass/volume)Ordered By: Solomon Griffiths on 08-12-2023 Calcium [Mass/Vol] 9.2 mg/dL 8.5-10.1 [facility] Serum or plasma creatinine m easurement (mass/volume)Ordered By: Solomon Griffiths on 08-12-2023 Creatinine [Mass/Vol] 1.97 mg/dL 0.70-1.30 [facility] Comment on above: The validity of the calculated GFR & GFRAA in patients over 70 years has not been determined. Clinical correlation is essential. Serum or plasma urea nitroge n measurement (mass/volume)Ordered By: Solomon Griffiths on 08-12-2023 Urea nitrogen [Mass/Vol] 26 mg/dL 7-18 [facility] Thin prep Papanicolaou smear with manual screeningOrdered By: Solomon Griffiths on 08-12-2023 Thin prep Papanicolaou smear with manual screening 4 5-15 [facility] Absolute lymphocyte countOrd ered By: Amanda Wick on 08-08-2023 Lymphocytes Auto (Unsp spec) [#/Vol] 1.30 10*3/uL 0.83-4.51 [facility] Automated lymphocyte count a s percentage of total leukocytesOrdered By: Amanda Wick on 08-08-2023 Lymphocytes/100 WBC Auto (Unsp spec) 22.6 % 19-41 [facility] Basophil percentageOrdered B y: Amanda Wick on 08-08-2023 Basophils/100 WBC (Bld) 0.5 % 0-1 [facility] Chloride [Moles/Vol] 105 mmol/L 98-107 [facility] Eosinophils/100 WBC (Bld) 1.9 % 0-5 [facility] Glucose [Mass/Vol] 260 mg/dL 74-106 [facility] Comment on above: Glucose result great er than or equal to 200 mg/dLsuggests DIABETES MELLITUS per A.D.A. criteria. Hemoglobin (Bld) [Mass/Vol] 12.2 g/dL 13.0-16.5 [facility] Monocytes/100 WBC (Bld) 16.2 % 0-10 [facility] Neutrophils (Bld) [#/Vol] 3.4 10*3/uL 2.0-7.7 [facility] Neutrophils/100 WBC (Bld) 58.5 % 47-70 [facility] Potassium [Moles/Vol] 3.8 mmol/L 3.5-5.1 [facility] Sodium [Moles/Vol] 136 mmol/L 136-145 [facility] WBC (Bld) [#/Vol] 5.7 10*3/uL 4.4-11.0 [facility] Determination of erythrocyte mean corpuscular volume (MCV)Ordered By: Amanda Wick on 08-08-2023 MCV (RBC) [Entitic vol] 90.6 fL 80-94 [facility] Erythrocyte distribution wid th ratioOrdered By: Amanda Wick on 08-08-2023 Erythrocyte distribution width (RBC) [Ratio] 14.2 % 11.6-14.6 [facility] Erythrocyte distribution wid th standard deviationOrdered By: Amanda Wick on 08-08-2023 Erythrocyte distribution width (RBC) [Entitic vol] 47.0 fL 35.1-43.9 [facility] Hematocrit Auto (Bld) [Volum e fraction]Ordered By: Amanda Wick on 08-08-2023 Hematocrit (Bld) [Volume fraction] 38.4 % 40-54 [facility] Immature granulocytes/100 WB C Auto (Bld)Ordered By: Amanda Wick on 08-08-2023 Immature granulocytes/100 WBC (Bld) 0.300 % 0.0-0.9 [facility] Comment on above: IG% - Immature Granu locytes (promyelocytes, myelocytes and metamyelocytes) > 1% indicates that a LEFT SHIFT is Present. Laboratory - Chemistry and C hemistry - challengeOrdered By: Amanda Wick on 08-08-2023 CO2 [Moles/Vol] 26.0 mmol/L 21.0-32.0 [facility] Urea nitrogen/Creatinine [Mass ratio] 12.4 mg/mg 10-20 [facility] Laboratory - Hematology and Cell countsOrdered By: Amanda Wick on 08-08-2023 MCH (RBC) [Entitic mass] 28.8 pg 27.0-32.0 [facility] MCHC (RBC) [Mass/Vol] 31.8 g/dL 32-36 [facility] Nucleated RBC/100 WBC (Bld) [Ratio] 0 % 0-5 [facility] Platelet mean volume (Bld) [Entitic vol] 10.5 fL 6.2-12.0 [facility] Platelets (Bld) [#/Vol] 112 10*3/uL 150-450 [facility] No Panel InformationOrdered By: Amanda Wick on 08-08-2023 Estimated Creatinine Clearance Calc 39.53 ml/min [facility] Estimated GFR (MDRD) Amer 42 mL/min >60 [facility] Comment on above: GFR Calc Estimated GFR (MDRD) Non-Af Amer 34 mL/min >60 [facility] Comment on above: Non- GFR Calc RBC Auto (Bld) [#/Vol]Ordere d By: Amanda Wick on 08-08-2023 RBC (Bld) [#/Vol] 4.24 10*6/uL 4.6-6.2 [facility] Serum or plasma calcium amadou urement (mass/volume)Ordered By: Amanda Wick on 08-08-2023 Calcium [Mass/Vol] 8.8 mg/dL 8.5-10.1 [facility] Serum or plasma creatinine m easurement (mass/volume)Ordered By: Amanda Wick on 08-08-2023 Creatinine [Mass/Vol] 2.01 mg/dL 0.70-1.30 [facility] Comment on above: The validity of the calculated GFR & GFRAA in patients over 70 years has not been determined. Clinical correlation is essential. Serum or plasma urea nitroge n measurement (mass/volume)Ordered By: Amanda Wick on 08-08-2023 Urea nitrogen [Mass/Vol] 25 mg/dL 7-18 [facility] Thin prep Papanicolaou smear with manual screeningOrdered By: Amanda Baldomerobrendon on 08-08-2023 Thin prep Papanicolaou smear with manual screening 314 mg/dL 74-106 [facility] Comment on above: MANAGEMENT OF PATIEN T CARE PER NURSING PROTOCOL Thin prep Papanicolaou smear with manual screening 5 5-15 [facility] Basophil percentageOrdered B y: Gela Rita on 08-07-2023 Bilirubin [Mass/Vol] 0.70 mg/dL 0.20-1.00 [facility] Comment on above: For patients on eltr ombopag therapy, use of Dimension [facility] TBIL is not recommended. Protein [Mass/Vol] 5.9 g/dL 6.4-8.2 [facility] Laboratory - Chemistry and C hemistry - challengeOrdered By: Gela Salinas on 08-07-2023 Albumin/Globulin [Mass ratio] 0.7 {ratio} 0.9-2.4 [facility] ALP [Catalytic activity/Vol] 50 U/L 45-117 [facility] ALT [Catalytic activity/Vol] 17 U/L 16-61 [facility] Globulin (S) [Mass/Vol] 3.4 g/dL 2.2-4.2 [facility] Thin prep Papanicolaou smear with manual screeningOrdered By: Gela Salinas on 08-07-2023 Thin prep Papanicolaou smear with manual screening 2.5 g/dL 3.2-5.0 [facility] Thin prep Papanicolaou smear with manual screening 20 U/L 15-37 [facility] Absolute lymphocyte countOrd ered By: Carlyn Wallace on 08-06-2023 Lymphocytes Auto (Unsp spec) [#/Vol] 0.81 10*3/uL 0.83-4.51 [facility] Automated lymphocyte count a s percentage of total leukocytesOrdered By: Carlyn Wallace on 08-06-2023 Lymphocytes/100 WBC Auto (Unsp spec) 14.8 % 19-41 [facility] Basophil percentageOrdered B y: Carlyn Wallace on 08-06-2023 Basophils/100 WBC (Bld) 0.5 % 0-1 [facility] Chloride [Moles/Vol] 104 mmol/L 98-107 [facility] Eosinophils/100 WBC (Bld) 2.6 % 0-5 [facility] Glucose [Mass/Vol] 344 mg/dL 74-106 [facility] Comment on above: Glucose result great er than or equal to 200 mg/dLsuggests DIABETES MELLITUS per A.D.A. criteria. Hemoglobin (Bld) [Mass/Vol] 13.4 g/dL 13.0-16.5 [facility] Monocytes/100 WBC (Bld) 13.7 % 0-10 [facility] Neutrophils (Bld) [#/Vol] 3.7 10*3/uL 2.0-7.7 [facility] Neutrophils/100 WBC (Bld) 67.9 % 47-70 [facility] Potassium [Moles/Vol] 4.3 mmol/L 3.5-5.1 [facility] Sodium [Moles/Vol] 137 mmol/L 136-145 [facility] WBC (Bld) [#/Vol] 5.5 10*3/uL 4.4-11.0 [facility] Determination of erythrocyte mean corpuscular volume (MCV)Ordered By: Carlyn Wallace on 08-06-2023 MCV (RBC) [Entitic vol] 89.6 fL 80-94 [facility] Erythrocyte distribution wid th ratioOrdered By: Carlyn Wallace on 08-06-2023 Erythrocyte distribution width (RBC) [Ratio] 14.1 % 11.6-14.6 [facility] Erythrocyte distribution wid th standard deviationOrdered By: Carlyn Wallace on 08-06-2023 Erythrocyte distribution width (RBC) [Entitic vol] 45.4 fL 35.1-43.9 [facility] Hematocrit Auto (Bld) [Volum e fraction]Ordered By: Carlyn Wallace on 08-06-2023 Hematocrit (Bld) [Volume fraction] 40.5 % 40-54 [facility] Immature granulocytes/100 WB C Auto (Bld)Ordered By: Carlyn Wallace on 08-06-2023 Immature granulocytes/100 WBC (Bld) 0.500 % 0.0-0.9 [facility] Comment on above: IG% - Immature Granu locytes (promyelocytes, myelocytes and metamyelocytes) > 1% indicates that a LEFT SHIFT is Present. Laboratory - Chemistry and C hemistry - challengeOrdered By: Carlyn Wallace on 08-06-2023 CO2 [Moles/Vol] 27.0 mmol/L 21.0-32.0 [facility] Urea nitrogen/Creatinine [Mass ratio] 11.8 mg/mg 10-20 [facility] Laboratory - Hematology and Cell countsOrdered By: Carlyn Wallace on 08-06-2023 MCH (RBC) [Entitic mass] 29.6 pg 27.0-32.0 [facility] MCHC (RBC) [Mass/Vol] 33.1 g/dL 32-36 [facility] Nucleated RBC/100 WBC (Bld) [Ratio] 0 % 0-5 [facility] Platelet mean volume (Bld) [Entitic vol] 10.8 fL 6.2-12.0 [facility] Platelets (Bld) [#/Vol] 125 10*3/uL 150-450 [facility] Laboratory - Microbiology an d Antimicrobial susceptibilityOrdered By: Carlyn Wallace on 08-06-2023 SARS-CoV-2 (COVID-19) RNA LEANNE+probe Ql (Unsp spec) [facility] No Panel InformationOrdered By: Gela Salinas on 08-06-2023 Streptococcus pneumoniae Antigen (M [facility] No Panel InformationOrdered By: Carlyn Wallace on 08-06-2023 Estimated Creatinine Clearance Calc 35.02 ml/min [facility] Estimated GFR (MDRD) Amer 36 mL/min >60 [facility] Comment on above: GFR Calc Estimated GFR (MDRD) Non-Af Amer 30 mL/min >60 [facility] Comment on above: Non- GFR Calc RBC Auto (Bld) [#/Vol]Ordere d By: Carlyn Wallace on 08-06-2023 RBC (Bld) [#/Vol] 4.52 10*6/uL 4.6-6.2 [facility] Respiratory pathogens DNA an d RNA panel LEANNE+probe (Resp)Ordered By: Gela Salinas on 08-06-2023 Respiratory Panel (PCR) Rhinovirus [facility] Serum or plasma acetone amadou urement (mass/volume)Ordered By: Carlyn Wallace on 08-06-2023 Acetone [Mass/Vol] Negative NEG [facility] Serum or plasma calcium amadou urement (mass/volume)Ordered By: Carlyn Wallace on 08-06-2023 Calcium [Mass/Vol] 8.7 mg/dL 8.5-10.1 [facility] Serum or plasma creatinine m easurement (mass/volume)Ordered By: Carlyn Wallace on 08-06-2023 Creatinine [Mass/Vol] 2.28 mg/dL 0.70-1.30 [facility] Comment on above: The validity of the calculated GFR & GFRAA in patients over 70 years has not been determined. Clinical correlation is essential. Serum or plasma urea nitroge n measurement (mass/volume)Ordered By: Carlyn Wallace on 08-06-2023 Urea nitrogen [Mass/Vol] 27 mg/dL 7-18 [facility] Thin prep Papanicolaou smear with manual screeningOrdered By: Carlyn Wallace on 08-06-2023 Thin prep Papanicolaou smear with manual screening 6 5-15 [facility] Absolute lymphocyte countOrd ered By: Elmo Schreiber on 12-27-2022 Lymphocytes Auto (Unsp spec) [#/Vol] 0.67 10*3/uL 0.83-4.51 [facility] Basophil percentageOrdered B y: Elmo Schreiber on 12-27-2022 Basophils/100 WBC (Bld) 0.6 % 0-1 [facility] Chloride [Moles/Vol] 99 mmol/L 98-107 [facility] Eosinophils/100 WBC (Bld) 0.8 % 0-5 [facility] Glucose [Mass/Vol] 414 mg/dL 74-106 [facility] Comment on above: Glucose result great er than or equal to 200 mg/dLsuggests DIABETES MELLITUS per A.D.A. criteria. Neutrophils (Bld) [#/Vol] 3.8 10*3/uL 2.0-7.7 [facility] Neutrophils/100 WBC (Bld) 72.4 % 47-70 [facility] Potassium [Moles/Vol] 4.5 mmol/L 3.5-5.1 [facility] Sodium [Moles/Vol] 132 mmol/L 136-145 [facility] WBC (Bld) [#/Vol] 5.3 10*3/uL 4.4-11.0 [facility] Basophil percentageOrdered B y: Gela Salinas on 12-27-2022 Bilirubin [Mass/Vol] 0.40 mg/dL 0.20-1.00 [facility] Comment on above: For patients on eltr ombopag therapy, use of Dimension [facility] TBIL is not recommended. LDH [Catalytic activity/Vol] 272 U/L 87-241 [facility] Protein [Mass/Vol] 7.3 g/dL 6.4-8.2 [facility] Blood erythrocytes count (nu mber/volume)Ordered By: Elmo Schreiber on 12-27-2022 RBC (Bld) [#/Vol] 5.00 10*6/uL 4.6-6.2 [facility] Blood hemoglobin measurement (mass/volume)Ordered By: Elmo Schreiber on 12-27-2022 Hemoglobin (Bld) [Mass/Vol] 14.9 g/dL 13.0-16.5 [facility] Blood lymphocytes/100 leukoc ytesOrdered By: Elmo Schreiber on 12-27-2022 Lymphocytes/100 WBC (Bld) 12.7 % 19-41 [facility] Blood monocytes/100 leukocyt esOrdered By: Elmo Schreiber on 12-27-2022 Monocytes/100 WBC (Bld) 13.1 % 0-10 [facility] Blood platelet mean volumeOr dered By: lEmo Schreiber on 12-27-2022 Platelet mean volume (Bld) [Entitic vol] 10.7 fL 6.2-12.0 [facility] Determination of erythrocyte mean corpuscular volume (MCV)Ordered By: Elmo Schreiber on 12-27-2022 MCV (RBC) [Entitic vol] 91.2 fL 80-94 [facility] Direct bilirubinOrdered By: Gela Salinas on 12-27-2022 Bilirubin.direct [Mass/Vol] 0.14 mg/dL 0.00-0.30 [facility] Hematocrit Auto (Bld) [Volum e fraction]Ordered By: Elmo Schreiber on 12-27-2022 Hematocrit (Bld) [Volume fraction] 45.6 % 40-54 [facility] Laboratory - Chemistry and C hemistry - challengeOrdered By: Gela Salinas on 12-27-2022 ALP [Catalytic activity/Vol] 66 U/L 45-117 [facility] ALT [Catalytic activity/Vol] 38 U/L 16-61 [facility] CK [Catalytic activity/Vol] 170 U/L 39-308 [facility] Globulin (S) [Mass/Vol] 4.3 g/dL 2.2-4.2 [facility] Natriuretic peptide B (Bld) [Mass/Vol] 365.7 pg/mL 0-100 [facility] Laboratory - Chemistry and C hemistry - challengeOrdered By: Elmo Schreiber on 12-27-2022 CO2 [Moles/Vol] 26.0 mmol/L 21.0-32.0 [facility] Urea nitrogen/Creatinine [Mass ratio] 11.6 mg/mg 10-20 [facility] Laboratory - Hematology and Cell countsOrdered By: Elmo Schreiber on 12-27-2022 Erythrocyte distribution width (RBC) [Entitic vol] 45.7 fL 35.1-43.9 [facility] Erythrocyte distribution width (RBC) [Ratio] 13.6 % 11.6-14.6 [facility] Immature granulocytes/100 WBC (Bld) 0.400 % 0.0-0.9 [facility] Comment on above: IG% - Immature Granu locytes (promyelocytes, myelocytes and metamyelocytes) > 1% indicates that a LEFT SHIFT is Present. MCH (RBC) [Entitic mass] 29.8 pg 27.0-32.0 [facility] Nucleated RBC/100 WBC (Bld) [Ratio] 0 % 0-5 [facility] Laboratory - Microbiology an d Antimicrobial susceptibilityOrdered By: Gela Salinas on 12-27-2022 SARS-CoV-2 (COVID-19) RNA LEANNE+probe Ql (Unsp spec) SARS-CoV-2 (COVID 19) [facility] MCHC Auto (RBC) [Mass/Vol]Or dered By: Elmo Schreiber on 12-27-2022 MCHC (RBC) [Mass/Vol] 32.7 g/dL 32-36 [facility] No Panel InformationOrdered By: Gela Salinas on 12-27-2022 D-Dimer Quantitative (PE/DVT) 0.99 FEU/ug/m 0.27-0.49 [facility] Comment on above: CRITICAL VALUE VERIF IED. CALLED TO JAXON DURANT RN [id number] Kannan Esqueda.RESULTS READ BACK BY SAME . D-Dimer ELEVATED (>0.49): Additional studies and clinicalassessments are indicated to conclude diagnosis of:Deep Vein Thrombosis (DVT) or Pulmonary Embolism (PE) Troponin I High Sensitivity 46 pg/mL 3.0-78.0 [facility] Comment on above: Please Note: New Yuliya t Units and Gender Specific Reference Ranges. For more information see Policy Stat Procedure [facility] High Sensitivity Troponin (TNIH) and attachments. No Panel InformationOrdered By: Elmo Schreiber on 12-27-2022 Estimated Creatinine Clearance Calc 30.18 ml/min [facility] Estimated GFR (MDRD) Amer 37 mL/min >60 [facility] Comment on above: GFR Calc Estimated GFR (MDRD) Non-Af Amer 30 mL/min >60 [facility] Comment on above: Non- GFR Calc Platelets bldOrdered By: Reina Schreiber on 12-27-2022 Platelets (Bld) [#/Vol] 123 10*3/uL 150-450 [facility] Serum or plasma C reactive p rotein measurement (mass/volume)Ordered By: Gela Salinas on 12-27-2022 CRP [Mass/Vol] 70.20 mg/L 0.0-3.0 [facility] Comment on above: C-Reactive Protein ( CRP) provides useful information for thediagnosis, therapy and monitoring of inflammatory processesand associated diseases. For the evaluation of Relative Riskfor Cardiovascular Disease, a High Sensitivity CRP (HSCRP)should be ordered. Serum or plasma albumin amadou urement (mass/volume)Ordered By: Gela Salinas on 12-27-2022 Albumin [Mass/Vol] 3.0 g/dL 3.2-5.0 [facility] Serum or plasma calcium amadou urement (mass/volume)Ordered By: Elmo Schreiber on 12-27-2022 Calcium [Mass/Vol] 9.0 mg/dL 8.5-10.1 [facility] Serum or plasma creatinine m easurement (mass/volume)Ordered By: Elmo Schreiber on 12-27-2022 Creatinine [Mass/Vol] 2.25 mg/dL 0.70-1.30 [facility] Comment on above: The validity of the calculated GFR & GFRAA in patients over 70 years has not been determined. Clinical correlation is essential. Serum or plasma ferritin sienna surement (mass/volume)Ordered By: Gela Salinas on 12-27-2022 Ferritin [Mass/Vol] 328 ng/mL 26-388 [facility] Serum or plasma urea nitroge n measurement (mass/volume)Ordered By: Elmo Schreiber on 12-27-2022 Urea nitrogen [Mass/Vol] 26 mg/dL 7-18 [facility] Serum procalcitonin measurem entOrdered By: Gela Salinas on 12-27-2022 Procalcitonin [Mass/Vol] 0.24 ng/mL 0.00-0.09 [facility] Comment on above: A procalcitonin (PCT ) level above 2.0 ng/mL on the first day of ICU admission is associated with a high risk for progression to severe sepsis and/or septic shock. A PCT level below 0.5 ng/mL on the first day of ICU admission is associated with a low risk for progression to severe and/or septic shock. Note: Concentrations <0.5 ng/mL do not exclude an infection on account of localized infections (without systemic signs) which can be associated with such low concentrations, or a systemic infection in its initial stages (<6 hours). Furthermore, increased procalcitonin can occur without infection. PCT concentrations between 0.5 and 2.0 ng/mL should be interpreted taking into account the patient's history. It is recommended to retest PCT within 6-24 hours if any concentrations <2 ng/mL are obtained. Thin prep Papanicolaou smear with manual screeningOrdered By: Gela Salinas on 12-27-2022 Thin prep Papanicolaou smear with manual screening 32 U/L 15-37 [facility] Thin prep Papanicolaou smear with manual screeningOrdered By: Elmo Schreiber on 12-27-2022 Thin prep Papanicolaou smear with manual screening 7 5-15 [facility] Absolute lymphocyte countOrd ered By: Nathen Chang on 10-27-2022 Lymphocytes Auto (Unsp spec) [#/Vol] 1.65 10*3/uL 0.83-4.51 [facility] Basophil percentageOrdered B y: Nathen Chang on 10-27-2022 Basophils/100 WBC (Bld) 1.0 % 0-1 [facility] Bilirubin [Mass/Vol] 0.30 mg/dL 0.20-1.00 [facility] Comment on above: For patients on eltr ombopag therapy, use of Dimension [facility] TBIL is not recommended. Chloride [Moles/Vol] 106 mmol/L 98-107 [facility] Eosinophils/100 WBC (Bld) 2.7 % 0-5 [facility] Glucose [Mass/Vol] 181 mg/dL 74-106 [facility] Comment on above: Fasting Glucose resu lt greater than or equal to 126 mg/dL suggests DIABETES MELLITUS per A.D.A. criteria. Neutrophils (Bld) [#/Vol] 3.8 10*3/uL 2.0-7.7 [facility] Neutrophils/100 WBC (Bld) 60.0 % 47-70 [facility] Potassium [Moles/Vol] 3.9 mmol/L 3.5-5.1 [facility] Protein [Mass/Vol] 6.8 g/dL 6.4-8.2 [facility] Sodium [Moles/Vol] 139 mmol/L 136-145 [facility] WBC (Bld) [#/Vol] 6.3 10*3/uL 4.4-11.0 [facility] Blood erythrocytes count (nu mber/volume)Ordered By: Nathen Chang on 10-27-2022 RBC (Bld) [#/Vol] 4.85 10*6/uL 4.6-6.2 [facility] Blood hemoglobin measurement (mass/volume)Ordered By: Nathen Chang on 10-27-2022 Hemoglobin (Bld) [Mass/Vol] 14.4 g/dL 13.0-16.5 [facility] Blood lymphocytes/100 leukoc ytesOrdered By: Nathen Chang on 10-27-2022 Lymphocytes/100 WBC (Bld) 26.4 % 19-41 [facility] Blood monocytes/100 leukocyt esOrdered By: Nathen Chang on 10-27-2022 Monocytes/100 WBC (Bld) 9.4 % 0-10 [facility] Blood platelet mean volumeOr dered By: Nathen Chang on 10-27-2022 Platelet mean volume (Bld) [Entitic vol] 10.4 fL 6.2-12.0 [facility] Determination of erythrocyte mean corpuscular volume (MCV)Ordered By: Nathen Chang on 10-27-2022 MCV (RBC) [Entitic vol] 91.8 fL 80-94 [facility] Hematocrit Auto (Bld) [Volum e fraction]Ordered By: Nathen Chang on 10-27-2022 Hematocrit (Bld) [Volume fraction] 44.5 % 40-54 [facility] Laboratory - Chemistry and C hemistry - challengeOrdered By: Nathen Chang on 10-27-2022 ALP [Catalytic activity/Vol] 61 U/L 45-117 [facility] ALT [Catalytic activity/Vol] 40 U/L 16-61 [facility] CO2 [Moles/Vol] 28.0 mmol/L 21.0-32.0 [facility] Globulin (S) [Mass/Vol] 3.8 g/dL 2.2-4.2 [facility] Urea nitrogen/Creatinine [Mass ratio] 13.7 mg/mg 10-20 [facility] Laboratory - Hematology and Cell countsOrdered By: Nathen Chang on 10-27-2022 Erythrocyte distribution width (RBC) [Entitic vol] 46.3 fL 35.1-43.9 [facility] Erythrocyte distribution width (RBC) [Ratio] 13.7 % 11.6-14.6 [facility] Immature granulocytes/100 WBC (Bld) 0.500 % 0.0-0.9 [facility] Comment on above: IG% - Immature Granu locytes (promyelocytes, myelocytes and metamyelocytes) > 1% indicates that a LEFT SHIFT is Present. MCH (RBC) [Entitic mass] 29.7 pg 27.0-32.0 [facility] Nucleated RBC/100 WBC (Bld) [Ratio] 0 % 0-5 [facility] MCHC Auto (RBC) [Mass/Vol]Or dered By: Nathen Chang on 10-27-2022 MCHC (RBC) [Mass/Vol] 32.4 g/dL 32-36 [facility] No Panel InformationOrdered By: Nathen Chang on 10-27-2022 Hepatitis C Antibody Non-Reactive Nonreactive [facility] Comment on above: Non Reactive: < 0.8 Equivocal: >/= 0.8 to < 1.0 Reactive: >/= 1.0The CDC recommends that a reactive/equivocal HCV antibody result be followed up by the HCV Nucleic Acid Amplificationtest (230805) Estimated GFR (MDRD) Amer 43 mL/min >60 [facility] Comment on above: GFR Calc Estimated GFR (MDRD) Non-Af Amer 35 mL/min >60 [facility] Comment on above: Non- GFR Calc Parathyroid Hormone (Intact) 50.5 pg/mL 18.4-80.1 [facility] Thyroid Stimulating Hormone (TSH) 2.80 uIU/mL 0.358-3.74 [facility] Platelets bldOrdered By: Shani Chang on 10-27-2022 Platelets (Bld) [#/Vol] 165 10*3/uL 150-450 [facility] Serum or plasma albumin amadou urement (mass/volume)Ordered By: Nathen Chang on 10-27-2022 Albumin [Mass/Vol] 3.0 g/dL 3.2-5.0 [facility] Serum or plasma albumin/glob ulin mass ratioOrdered By: Nathen Chang on 10-27-2022 Albumin/Globulin [Mass ratio] 0.8 {ratio} 0.9-2.4 [facility] Serum or plasma calcium amadou urement (mass/volume)Ordered By: Nathen Chang on 10-27-2022 Calcium [Mass/Vol] 8.9 mg/dL 8.5-10.1 [facility] Serum or plasma creatinine m easurement (mass/volume)Ordered By: Nathen Chang on 10-27-2022 Creatinine [Mass/Vol] 1.97 mg/dL 0.70-1.30 [facility] Comment on above: The validity of the calculated GFR & GFRAA in patients over 70 years has not been determined. Clinical correlation is essential. Serum or plasma urea nitroge n measurement (mass/volume)Ordered By: Nathen Chang on 10-27-2022 Urea nitrogen [Mass/Vol] 27 mg/dL 7-18 [facility] Thin prep Papanicolaou smear with manual screeningOrdered By: Nathen Chang on 10-27-2022 Thin prep Papanicolaou smear with manual screening 25 U/L 15-37 [facility] Thin prep Papanicolaou smear with manual screening 5 5-15 [facility] Absolute lymphocyte countOrd ered By: Dr. Chang on 08-01-2022 Lymphocytes Auto (Unsp spec) [#/Vol] 1.28 10*3/uL 0.83-4.51 [facility] Basophil percentageOrdered B y: Dr. Chang on 08-01-2022 Basophils/100 WBC (Bld) 0.7 % 0-1 [facility] Bilirubin [Mass/Vol] 0.30 mg/dL 0.20-1.00 [facility] Comment on above: For patients on eltr ombopag therapy, use of Dimension [employer] TBIL is not recommended. Chloride [Moles/Vol] 106 mmol/L 98-107 [facility] Eosinophils/100 WBC (Bld) 1.8 % 0-5 [facility] Glucose [Mass/Vol] 174 mg/dL 74-106 [facility] Comment on above: Fasting Glucose resu lt greater than or equal to 126 mg/dL suggests DIABETES MELLITUS per A.D.A. criteria. Neutrophils (Bld) [#/Vol] 5.9 10*3/uL 2.0-7.7 [facility] Neutrophils/100 WBC (Bld) 70.3 % 47-70 [facility] Potassium [Moles/Vol] 4.6 mmol/L 3.5-5.1 [facility] Protein [Mass/Vol] 7.0 g/dL 6.4-8.2 [facility] Sodium [Moles/Vol] 137 mmol/L 136-145 [facility] WBC (Bld) [#/Vol] 8.4 10*3/uL 4.4-11.0 [facility] Blood erythrocytes count (nu mber/volume)Ordered By: Dr. Chang on 08-01-2022 RBC (Bld) [#/Vol] 4.76 10*6/uL 4.6-6.2 [facility] Blood hemoglobin measurement (mass/volume)Ordered By: Dr. Chang on 08-01-2022 Hemoglobin (Bld) [Mass/Vol] 14.0 g/dL 13.0-16.5 [facility] Blood lymphocytes/100 leukoc ytesOrdered By: Dr. Chang on 08-01-2022 Lymphocytes/100 WBC (Bld) 15.3 % 19-41 [facility] Blood monocytes/100 leukocyt esOrdered By: Dr. Chang on 08-01-2022 Monocytes/100 WBC (Bld) 11.4 % 0-10 [facility] Blood platelet mean volumeOr dered By: Dr. Chang on 08-01-2022 Platelet mean volume (Bld) [Entitic vol] 9.9 fL 6.2-12.0 [facility] Determination of erythrocyte mean corpuscular volume (MCV)Ordered By: Dr. Chang on 08-01-2022 MCV (RBC) [Entitic vol] 93.9 fL 80-94 [facility] Hematocrit Auto (Bld) [Volum e fraction]Ordered By: Dr. Chang on 08-01-2022 Hematocrit (Bld) [Volume fraction] 44.7 % 40-54 [facility] Laboratory - Chemistry and C hemistry - challengeOrdered By: Dr. Chang on 08-01-2022 ALP [Catalytic activity/Vol] 62 U/L 45-117 [facility] ALT [Catalytic activity/Vol] 30 U/L 16-61 [facility] CO2 [Moles/Vol] 27.0 mmol/L 21.0-32.0 [facility] Cobalamin (Vitamin B12) [Mass/Vol] 253 pg/mL 211-911 [facility] Globulin (S) [Mass/Vol] 4.1 g/dL 2.2-4.2 [facility] Urea nitrogen/Creatinine [Mass ratio] 13.2 mg/mg 10-20 [facility] Laboratory - Hematology and Cell countsOrdered By: Dr. Chang on 08-01-2022 Erythrocyte distribution width (RBC) [Entitic vol] 48.1 fL 35.1-43.9 [facility] Erythrocyte distribution width (RBC) [Ratio] 13.8 % 11.6-14.6 [facility] Immature granulocytes/100 WBC (Bld) 0.500 % 0.0-0.9 [facility] Comment on above: IG% - Immature Granu locytes (promyelocytes, myelocytes and metamyelocytes) > 1% indicates that a LEFT SHIFT is Present. MCH (RBC) [Entitic mass] 29.4 pg 27.0-32.0 [facility] Nucleated RBC/100 WBC (Bld) [Ratio] 0 % 0-5 [facility] MCHC Auto (RBC) [Mass/Vol]Or dered By: Dr. Chang on 08-01-2022 MCHC (RBC) [Mass/Vol] 31.3 g/dL 32-36 [facility] No Panel InformationOrdered By: Dr. Chang on 08-01-2022 Estimated GFR (MDRD) Amer 45 mL/min >60 [facility] Comment on above: GFR Calc Estimated GFR (MDRD) Non-Af Amer 37 mL/min >60 [facility] Comment on above: Non- GFR Calc Thyroid Stimulating Hormone (TSH) 1.62 uIU/mL 0.358-3.74 [facility] Platelets bldOrdered By: Dr. Chang on 08-01-2022 Platelets (Bld) [#/Vol] 185 10*3/uL 150-450 [facility] Serum or plasma albumin amadou urement (mass/volume)Ordered By: Dr. Chang on 08-01-2022 Albumin [Mass/Vol] 2.9 g/dL 3.2-5.0 [facility] Serum or plasma albumin/glob ulin mass ratioOrdered By: Dr. Chang on 08-01-2022 Albumin/Globulin [Mass ratio] 0.7 {ratio} 0.9-2.4 [facility] Serum or plasma calcium amadou urement (mass/volume)Ordered By: Dr. Chang on 08-01-2022 Calcium [Mass/Vol] 9.5 mg/dL 8.5-10.1 [facility] Serum or plasma creatinine m easurement (mass/volume)Ordered By: Dr. Chang on 08-01-2022 Creatinine [Mass/Vol] 1.90 mg/dL 0.70-1.30 [facility] Comment on above: The validity of the calculated GFR & GFRAA in patients over 70 years has not been determined. Clinical correlation is essential. Serum or plasma folate measu rement (mass/volume)Ordered By: Dr. Chang on 08-01-2022 Folate [Mass/Vol] 11.70 ng/mL 3.1-55.4 [facility] Comment on above: Slight Hemolysis, Re sult may be falsely increased. Serum or plasma urea nitroge n measurement (mass/volume)Ordered By: Dr. Chang on 08-01-2022 Urea nitrogen [Mass/Vol] 25 mg/dL 7-18 [facility] Thin prep Papanicolaou smear with manual screeningOrdered By: Dr. Chang on 08-01-2022 Thin prep Papanicolaou smear with manual screening 26 U/L 15-37 [facility] Thin prep Papanicolaou smear with manual screening 4 5-15 [facility] Absolute lymphocyte countOrd ered By: ED PROVIDER on 07-20-2022 Lymphocytes Auto (Unsp spec) [#/Vol] 0.50 10*3/uL 0.83-4.51 [facility] Basophil percentageOrdered B y: Dr. Salazar on 07-20-2022 Basophil percentage 0 SEEN /hpf 0-5 [facility] Basophil percentageOrdered B y: ED PROVIDER on 07-20-2022 Basophils/100 WBC (Bld) 0.4 % 0-1 [facility] Chloride [Moles/Vol] 102 mmol/L 98-107 [facility] Eosinophils/100 WBC (Bld) 0.9 % 0-5 [facility] Glucose [Mass/Vol] 354 mg/dL 74-106 [facility] Comment on above: Glucose result great er than or equal to 200 mg/dLsuggests DIABETES MELLITUS per A.D.A. criteria. Neutrophils (Bld) [#/Vol] 4.4 10*3/uL 2.0-7.7 [facility] Neutrophils/100 WBC (Bld) 80.3 % 47-70 [facility] Potassium [Moles/Vol] 4.4 mmol/L 3.5-5.1 [facility] Sodium [Moles/Vol] 132 mmol/L 136-145 [facility] WBC (Bld) [#/Vol] 5.5 10*3/uL 4.4-11.0 [facility] Bilirubin Test strip Ql (U)O rdered By: Dr. Salazar on 07-20-2022 Bilirubin Ql (U) Negative Negative [facility] Blood erythrocytes count (nu mber/volume)Ordered By: ED PROVIDER on 07-20-2022 RBC (Bld) [#/Vol] 4.80 10*6/uL 4.6-6.2 [facility] Blood hemoglobin measurement (mass/volume)Ordered By: ED PROVIDER on 07-20-2022 Hemoglobin (Bld) [Mass/Vol] 14.5 g/dL 13.0-16.5 [facility] Blood lymphocytes/100 leukoc ytesOrdered By: ED PROVIDER on 07-20-2022 Lymphocytes/100 WBC (Bld) 9.1 % 19-41 [facility] Blood manual differential co mment interpretation (narrative result)Ordered By: ED PROVIDER on 07-20-2022 Manual differential comment Shankar (Bld) [Interp] SCANNED [facility] Blood monocytes/100 leukocyt esOrdered By: ED PROVIDER on 07-20-2022 Monocytes/100 WBC (Bld) 8.2 % 0-10 [facility] Blood platelet mean volumeOr dered By: ED PROVIDER on 07-20-2022 Platelet mean volume (Bld) [Entitic vol] 10.3 fL 6.2-12.0 [facility] Determination of erythrocyte mean corpuscular volume (MCV)Ordered By: ED PROVIDER on 07-20-2022 MCV (RBC) [Entitic vol] 87.1 fL 80-94 [facility] Glucose Glucometer (BldC) [M ass/Vol]Ordered By: Dr. Salazar on 07-20-2022 Glucose [Mass/Vol] 386 mg/dL 74-106 [facility] Comment on above: MANAGEMENT OF PATIEN T CARE PER NURSING PROTOCOL Hematocrit Auto (Bld) [Volum e fraction]Ordered By: ED PROVIDER on 07-20-2022 Hematocrit (Bld) [Volume fraction] 41.8 % 40-54 [facility] Hyaline casts LM.LPF (Urine sed) [#/Area]Ordered By: Dr. Salazar on 07-20-2022 Hyaline casts (Urine sed) [#/Area] 0 /[LPF] 0-5 [facility] Ketones Test strip Ql (U)Ord ered By: Dr. Salazar on 07-20-2022 Ketones Ql (U) 5 mg/dl Negative [facility] Laboratory - Chemistry and C hemistry - challengeOrdered By: ED PROVIDER on 07-20-2022 CO2 [Moles/Vol] 22.0 mmol/L 21.0-32.0 [facility] Urea nitrogen/Creatinine [Mass ratio] 16.6 mg/mg 10-20 [facility] Laboratory - Hematology and Cell countsOrdered By: ED PROVIDER on 07-20-2022 Erythrocyte distribution width (RBC) [Entitic vol] 41.8 fL 35.1-43.9 [facility] Erythrocyte distribution width (RBC) [Ratio] 13.3 % 11.6-14.6 [facility] Immature granulocytes/100 WBC (Bld) 1.100 % 0.0-0.9 [facility] Comment on above: IG% - Immature Granu locytes (promyelocytes, myelocytes and metamyelocytes) > 1% indicates that a LEFT SHIFT is Present. MCH (RBC) [Entitic mass] 30.2 pg 27.0-32.0 [facility] Nucleated RBC/100 WBC (Bld) [Ratio] 0 % 0-5 [facility] MCHC Auto (RBC) [Mass/Vol]Or dered By: ED PROVIDER on 07-20-2022 MCHC (RBC) [Mass/Vol] 34.7 g/dL 32-36 [facility] Mucus LM Ql (Urine sed)Order ed By: Dr. Salazar on 07-20-2022 Mucus Ql (Urine sed) 0 SEEN /hpf [facility] Nitrite Test strip Ql (U)Ord ered By: Dr. Salazar on 07-20-2022 Nitrite Ql (U) Negative Negative [facility] No Panel InformationOrdered By: ED PROVIDER on 07-20-2022 Estimated Creatinine Clearance Calc 28.62 ml/min [facility] Estimated GFR (MDRD) Amer 34 mL/min >60 [facility] Comment on above: GFR Calc Estimated GFR (MDRD) Non-Af Amer 28 mL/min >60 [facility] Comment on above: Non- GFR Calc Platelets bldOrdered By: ED PROVIDER on 07-20-2022 Platelets (Bld) [#/Vol] 146 10*3/uL 150-450 [facility] Protein Test strip Ql (U)Ord ered By: Dr. Salazar on 07-20-2022 Protein Ql (U) 500 mg/dl Negative [facility] Serum or plasma calcium amadou urement (mass/volume)Ordered By: ED PROVIDER on 07-20-2022 Calcium [Mass/Vol] 9.0 mg/dL 8.5-10.1 [facility] Serum or plasma creatinine m easurement (mass/volume)Ordered By: ED PROVIDER on 07-20-2022 Creatinine [Mass/Vol] 2.41 mg/dL 0.70-1.30 [facility] Comment on above: The validity of the calculated GFR & GFRAA in patients over 70 years has not been determined. Clinical correlation is essential. Serum or plasma urea nitroge n measurement (mass/volume)Ordered By: ED PROVIDER on 07-20-2022 Urea nitrogen [Mass/Vol] 40 mg/dL 7-18 [facility] Squamous epithelial cells de tection in urine sediment by light microscopyOrdered By: Dr. Salazar on 07-20-2022 Epithelial cells.squamous LM Ql (Urine sed) 0 SEEN /hpf 0-5 [facility] Thin prep Papanicolaou smear with manual screeningOrdered By: ED PROVIDER on 07-20-2022 Thin prep Papanicolaou smear with manual screening 8 5-15 [facility] Urine blood detectionOrdered By: Dr. Salazar on 07-20-2022 RBC Ql (U) 10 /ul Negative [facility] RBC Ql (U) 0-5 SEEN /hpf 0-5 [facility] Urine clarityOrdered By: Dr. Salazar on 07-20-2022 Clarity (U) Clear Clear [facility] Urine color determinationOrd ered By: Dr. Salazar on 07-20-2022 Color (U) Yellow Yellow [facility] Urine glucose detectionOrder ed By: Dr. Salazar on 07-20-2022 Glucose Ql (U) 1000 mg/dl Normal [facility] Urine leukocyte esterase det ection by dipstickOrdered By: Dr. Salazar on 07-20-2022 Leukocyte esterase Test strip Ql (U) Negative Negative [facility] Urine pHOrdered By: Dr. Sofia mccabe on 07-20-2022 pH (U) 5.0 [pH] 5.0 - 8.0 [facility] Urine sediment bacteria coun t by microscopy (number/high power field)Ordered By: Dr. Salazar on 07-20-2022 Bacteria LM.HPF (Urine sed) [#/Area] 0 /[HPF] None Seen [facility] Urine specific gravity measu rementOrdered By: Dr. Salazar on 07-20-2022 Specific gravity (U) [Rel density] 1.025 1.002-1.030 [facility] Urobilinogen Auto test strip Ql (U)Ordered By: Dr. Salazar on 07-20-2022 Urobilinogen Ql (U) Normal mg/dl Normal [facility] Basophil percentageOrdered B y: Dr. Chang on 04-29-2022 Basophil percentage 3.3 mg/dL 2.5-4.9 [facility] Chloride [Moles/Vol] 105 mmol/L 98-107 [facility] Glucose [Mass/Vol] 205 mg/dL 74-106 [facility] Comment on above: Glucose result great er than or equal to 200 mg/dLsuggests DIABETES MELLITUS per A.D.A. criteria. Potassium [Moles/Vol] 5.1 mmol/L 3.5-5.1 [facility] Sodium [Moles/Vol] 139 mmol/L 136-145 [facility] Laboratory - Chemistry and C hemistry - challengeOrdered By: Dr. Chang on 04-29-2022 CO2 [Moles/Vol] 27.0 mmol/L 21.0-32.0 [facility] Urea nitrogen/Creatinine [Mass ratio] 11.1 mg/mg 10-20 [facility] No Panel InformationOrdered By: Dr. Chang on 04-29-2022 Estimated GFR (MDRD) Amer 50 mL/min >60 [facility] Comment on above: GFR Calc Estimated GFR (MDRD) Non-Af Amer 42 mL/min >60 [facility] Comment on above: Non- GFR Calc Parathyroid Hormone (Intact) 43.1 pg/mL 18.4-80.1 [facility] Vitamin D 25-Hydroxy 38.6 ng/mL [facility] Comment on above: Vitamin D 25(OH) Sta tus Range Deficiency <20 ng/mL (50nmol/L) Insufficiency 20 - 30 ng/mL (50 - 75 nmol/L) Sufficiency 30 - 100 ng/mL (75 - 250 nmol/L) Toxicity >100 ng/mL (>250 nmol/L) Serum or plasma albumin amadou urement (mass/volume)Ordered By: Dr. Chang on 04-29-2022 Albumin [Mass/Vol] 3.2 g/dL 3.2-5.0 [facility] Serum or plasma calcium amadou urement (mass/volume)Ordered By: Dr. Chang on 04-29-2022 Calcium [Mass/Vol] 9.2 mg/dL 8.5-10.1 [facility] Serum or plasma creatinine m easurement (mass/volume)Ordered By: Dr. Chang on 04-29-2022 Creatinine [Mass/Vol] 1.71 mg/dL 0.70-1.30 [facility] Comment on above: The validity of the calculated GFR & GFRAA in patients over 70 years has not been determined. Clinical correlation is essential. Serum or plasma urea nitroge n measurement (mass/volume)Ordered By: Dr. Chang on 04-29-2022 Urea nitrogen [Mass/Vol] 19 mg/dL 7-18 [facility] Basophil percentageon 2021 Chloride [Moles/Vol] 98 mmol/L 98-107 [facility] Work Phone: Cholesterol [Mass/Vol] 135 mg/dL <200 [facility] Work Phone: Comment on above: <200 mg/dL Desirable 200-240 mg/dL Borderline >240 mg/dL High Risk Glucose [Mass/Vol] 354 mg/dL 74-106 [facility] Work Phone: Comment on above: Glucose result great er than or equal to 200 mg/dLsuggests DIABETES MELLITUS per A.D.A. criteria. Potassium [Moles/Vol] 4.2 mmol/L 3.5-5.1 [facility] Work Phone: Sodium [Moles/Vol] 132 mmol/L 136-145 [facility] Work Phone: Triglyceride [Mass/Vol] 247 mg/dL <199 [facility] Work Phone: Comment on above: The drugs N-Acetylcy steine and Metamizole may falsely depress this assay.Serum Triglycerides Reference Interval Normal <150 mg/dL Borderline high 150 - 199 mg/dL High 200 - 499 mg/dL Very High > or = 500 mg/dL Glucose Glucometer (BldC) [M ass/Vol]on 02-03-2022 Glucose [Mass/Vol] 195 mg/dL 74-106 [facility] Work Phone: Comment on above: MANAGEMENT OF PATIEN T CARE PER NURSING PROTOCOL Glucose [Mass/Vol] 486 mg/dL 74-106 [facility] Work Phone: Comment on above: Dr Becca BLACKMAN OF PATIENT CARE PER NURSING PROTOCOL Laboratory - Chemistry and C hemistry - challengeon 02-03-2022 CO2 [Moles/Vol] 25.0 mmol/L 21.0-32.0 [facility] Work Phone: Urea nitrogen/Creatinine [Mass ratio] 15.9 mg/mg 10-20 [facility] Work Phone: No Panel Informationon 02-03 Estimated Creatinine Clearance Calc 36.50 ml/min [facility] Work Phone: Estimated GFR (MDRD) Amer 45 mL/min >60 [facility] Work Phone: Comment on above: GFR Calc Estimated GFR (MDRD) Non-Af Amer 37 mL/min >60 [facility] Work Phone: Comment on above: Non- GFR Calc Thyroid Stimulating Hormone (TSH) 0.74 uIU/mL 0.358-3.74 [facility] Work Phone: Serum or plasma calcium amadou urement (mass/volume)on 02-03-2022 Calcium [Mass/Vol] 9.2 mg/dL 8.5-10.1 [facility] Work Phone: Serum or plasma cholesterol in HDL measurement (mass/volume)on 02-03-2022 Cholesterol in HDL [Mass/Vol] 39 mg/dL >40 [facility] Work Phone: Comment on above: The drugs N-Acetylcy steine and Metamizole may falsely depress this assay. Reference Range HDL <40 mg/dL Low HDL Cholesterol HDL >or= 60 mg/dL High HDL Cholesterol Serum or plasma cholesterol in VLDL measurement (mass/volume)on 02-03-2022 Cholesterol in VLDL [Mass/Vol] 49 mg/dL 5-40 [facility] Work Phone: Serum or plasma creatinine m easurement (mass/volume)on 02-03-2022 Creatinine [Mass/Vol] 1.89 mg/dL 0.70-1.30 [facility] Work Phone: Comment on above: The validity of the calculated GFR & GFRAA in patients over 70 years has not been determined. Clinical correlation is essential. Serum or plasma low density lipoprotein (LDL) cholesterol measurement (mass/volume)on 02-03-2022 Cholesterol in LDL [Mass/Vol] 47 mg/dL 0-130 [facility] Work Phone: Serum or plasma urea nitroge n measurement (mass/volume)on 02-03-2022 Urea nitrogen [Mass/Vol] 30 mg/dL 7-18 [facility] Work Phone: Thin prep Papanicolaou smear with manual screeningon 02-03-2022 Thin prep Papanicolaou smear with manual screening 9 5-15 [facility] Work Phone: Absolute lymphocyte counton 02-02-2022 Lymphocytes Auto (Unsp spec) [#/Vol] 2.14 10*3/uL 0.83-4.51 [facility] Work Phone: Basophil percentageon 2021 Basophils/100 WBC (Bld) 0.8 % 0-1 [facility] Work Phone: Eosinophils/100 WBC (Bld) 2.0 % 0-5 [facility] Work Phone: Neutrophils (Bld) [#/Vol] 4.3 10*3/uL 2.0-7.7 [facility] Work Phone: Neutrophils/100 WBC (Bld) 57.2 % 47-70 [facility] Work Phone: WBC (Bld) [#/Vol] 7.5 10*3/uL 4.4-[facility] Blood erythrocytes count (nu mber/volume)on 02-02-2022 RBC (Bld) [#/Vol] 5.30 10*6/uL 4.6-6.2 [facility]: Blood hemoglobin measurement (mass/volume)on 02-02-2022 Hemoglobin (Bld) [Mass/Vol] 16.1 g/dL 13.0-16.5 [facility] Work Phone: Blood lymphocytes/100 leukoc yteson 02-02-2022 Lymphocytes/100 WBC (Bld) 28.6 % 19-41 [facility] Work Phone: Blood monocytes/100 leukocyt eson 02-02-2022 Monocytes/100 WBC (Bld) 10.9 % 0-10 [facility] Work Phone: Blood platelet mean volumeon 02-02-2022 Platelet mean volume (Bld) [Entitic vol] 10.3 fL 6.2-12.0 [facility] Work Phone: Determination of erythrocyte mean corpuscular volume (MCV)on 02-02-2022 MCV (RBC) [Entitic vol] 87.2 fL 80-94 [facility] Work Phone: [phone] Hematocrit Auto (Bld) [Volum e fraction]on 02-02-2022 Hematocrit (Bld) [Volume fraction] 46.2 % 40-54 [facility] Work Phone: INR in Blood by Coagulation assayon 02-02-2022 INR Coag (Bld) [Relative time] 1.1 {INR} [facility] Work Phone: Laboratory - Coagulationon 1 aPTT Coag (Bld) [Time] 32.2 s 24.1-36.2 [facility] Work Phone: PT Coag (PPP) [Time] 13.6 s 11.7-14.9 [facility] Work Phone: Laboratory - Hematology and Cell countson 02-02-2022 Erythrocyte distribution width (RBC) [Entitic vol] 39.6 fL 35.1-43.9 [facility] Work Phone: Erythrocyte distribution width (RBC) [Ratio] 12.5 % 11.6-14.6 [facility] Work Phone: Immature granulocytes/100 WBC (Bld) 0.500 % 0.0-0.9 [facility] Work Phone: Comment on above: IG% - Immature Granu locytes (promyelocytes, myelocytes and metamyelocytes) > 1% indicates that a LEFT SHIFT is Present. MCH (RBC) [Entitic mass] 30.4 pg 27.0-32.0 [facility] Work Phone: Nucleated RBC/100 WBC (Bld) [Ratio] 0 % 0-5 [facility] Work Phone: MCHC Auto (RBC) [Mass/Vol]on 02-02-2022 MCHC (RBC) [Mass/Vol] 34.8 g/dL 32-36 [facility] Work Phone: No Panel Informationon 02-02 Troponin I High Sensitivity 34 pg/mL 3.0-78.0 [facility] Work Phone: Comment on above: Please Note: New Yuliya t Units and Gender Specific Reference Ranges. For more information see Policy Stat Procedure Armstrong High Sensitivity Troponin (TNIH) and attachments. Platelets bldon 02-02-2022 Platelets (Bld) [#/Vol] 176 10*3/uL 150-450 [facility] Work Phone: Glucose Glucometer (BldC) [M ass/Vol]on 11-07-2021 Glucose [Mass/Vol] 172 mg/dL 74-106 [facility] Work Phone: Comment on above: MANAGEMENT OF PATIEN T CARE PER NURSING PROTOCOL Absolute lymphocyte counton 11-06-2021 Lymphocytes Auto (Unsp spec) [#/Vol] 1.11 10*3/uL 0.83-4.51 [facility] Work Phone: Basophil percentageon 2021 Basophils/100 WBC (Bld) 0.2 % 0-1 [facility] Work Phone: Bilirubin [Mass/Vol] 0.30 mg/dL 0.20-1.00 [facility] Work Phone: Comment on above: For patients on eltr ombopag therapy, use of Dimension Armstrong TBIL is not recommended. Chloride [Moles/Vol] 114 mmol/L 98-107 [facility] Work Phone: [phone] Eosinophils/100 WBC (Bld) 1.7 % 0-5 [facility] Work Phone: Glucose [Mass/Vol] 67 mg/dL 74-106 [facility] Work Phone: [phone] Neutrophils (Bld) [#/Vol] 6.5 10*3/uL 2.0-7.7 [facility] Work Phone: [phone] Neutrophils/100 WBC (Bld) 73.3 % 47-70 [facility] Work Phone: Potassium [Moles/Vol] 4.1 mmol/L 3.5-5.1 [facility] Work Phone: Protein [Mass/Vol] 6.5 g/dL 6.4-8.2 [facility] Work Phone: Sodium [Moles/Vol] 143 mmol/L 136-145 [facility] Work Phone: WBC (Bld) [#/Vol] 8.8 10*3/uL 4.4-11.0 [facility] Work Phone: Blood erythrocytes count (nu mber/volume)on 11-06-2021 RBC (Bld) [#/Vol] 4.28 10*6/uL 4.6-6.2 [facility]: Blood hemoglobin measurement (mass/volume)on 11-06-2021 Hemoglobin (Bld) [Mass/Vol] 13.4 g/dL 13.0-16.5 [facility] Work Phone: Blood lymphocytes/100 leukoc yteson 11-06-2021 Lymphocytes/100 WBC (Bld) 12.6 % 19-41 [facility] Work Phone: Blood monocytes/100 leukocyt eson 11-06-2021 Monocytes/100 WBC (Bld) 11.0 % 0-10 [facility] Work Phone: Blood platelet mean volumeon 11-06-2021 Platelet mean volume (Bld) [Entitic vol] 9.8 fL 6.2-12.0 [facility] Work Phone: Determination of erythrocyte mean corpuscular volume (MCV)on 11-06-2021 MCV (RBC) [Entitic vol] 91.4 fL 80-94 [facility] Work Phone: Direct bilirubinon 2 Bilirubin.direct [Mass/Vol] 0.12 mg/dL 0.00-0.30 [facility] Work Phone: Hematocrit Auto (Bld) [Volum e fraction]on 11-06-2021 Hematocrit (Bld) [Volume fraction] 39.1 % 40-54 [facility] Work Phone: Laboratory - Chemistry and C hemistry - challengeon 11-06-2021 ALP [Catalytic activity/Vol] 52 U/L 45-117 [facility] Work Phone: ALT [Catalytic activity/Vol] 32 U/L 16-61 [facility] Work Phone: CO2 [Moles/Vol] 24.0 mmol/L 21.0-32.0 [facility] Work Phone: Globulin (S) [Mass/Vol] 3.4 g/dL 2.2-4.2 [facility] Work Phone: Magnesium [Mass/Vol] 1.9 mg/dL 1.6-2.6 [facility] Work Phone: Urea nitrogen/Creatinine [Mass ratio] 22.1 mg/mg 10-20 [facility] Work Phone: Laboratory - Hematology and Cell countson 11-06-2021 Erythrocyte distribution width (RBC) [Entitic vol] 47.9 fL 35.1-43.9 [facility] Work Phone: Erythrocyte distribution width (RBC) [Ratio] 14.2 % 11.6-14.6 [facility] Work Phone: Immature granulocytes/100 WBC (Bld) 1.200 % 0.0-0.9 [facility] Work Phone: Comment on above: IG% - Immature Granu locytes (promyelocytes, myelocytes and metamyelocytes) > 1% indicates that a LEFT SHIFT is Present. MCH (RBC) [Entitic mass] 31.3 pg 27.0-32.0 [facility] Work Phone: Nucleated RBC/100 WBC (Bld) [Ratio] 0 % 0-5 [facility] Work Phone: MCHC Auto (RBC) [Mass/Vol]on 11-06-2021 MCHC (RBC) [Mass/Vol] 34.3 g/dL 32-36 [facility] Work Phone: No Panel Informationon 11-06 Estimated Creatinine Clearance Calc 48.31 ml/min [facility] Work Phone: Estimated GFR (MDRD) Amer 61 mL/min >60 [facility] Work Phone: Comment on above: GFR Calc Estimated GFR (MDRD) Non-Af Amer 50 mL/min >60 [facility] Work Phone: Comment on above: Non- GFR Calc Platelets bldon 11-06-2021 Platelets (Bld) [#/Vol] 158 10*3/uL 150-450 [facility] Work Phone: Serum or plasma albumin amadou urement (mass/volume)on 11-06-2021 Albumin [Mass/Vol] 3.1 g/dL 3.2-5.0 [facility] Work Phone: Serum or plasma calcium amadou urement (mass/volume)on 11-06-2021 Calcium [Mass/Vol] 9.1 mg/dL 8.5-10.1 [facility] Work Phone: Serum or plasma creatinine m easurement (mass/volume)on 11-06-2021 Creatinine [Mass/Vol] 1.45 mg/dL 0.70-1.30 [facility] Work Phone: Comment on above: The validity of the calculated GFR & GFRAA in patients over 70 years has not been determined. Clinical correlation is essential. Serum or plasma urea nitroge n measurement (mass/volume)on 11-06-2021 Urea nitrogen [Mass/Vol] 32 mg/dL 7-18 [facility] Work Phone: Thin prep Papanicolaou smear with manual screeningon 11-06-2021 Thin prep Papanicolaou smear with manual screening 36 U/L 15-37 [facility] Work Phone: Thin prep Papanicolaou smear with manual screening 5 5-15 [facility] Work Phone: Basophil percentageon 2021 Chloride [Moles/Vol] 94 mmol/L 98-107 [facility] Work Phone: Glucose [Mass/Vol] 555 mg/dL 74-106 [facility] Work Phone: Comment on above: Critical Result(s) C alled at: 10:37:11 10/25/2021 by: Rob Malin to Faiza Curry RN(PLAB). Results read back by same.Glucose result greater than or equal to 200 mg/dLsuggests DIABETES MELLITUS per A.D.A. criteria. Potassium [Moles/Vol] 4.8 mmol/L 3.5-5.1 [facility] Work Phone: Sodium [Moles/Vol] 130 mmol/L 136-145 [facility] Work Phone: Laboratory - Chemistry and C hemistry - challengeon 10-25-2021 CO2 [Moles/Vol] 31.0 mmol/L 21.0-32.0 [facility] Work Phone: Magnesium [Mass/Vol] 2.5 mg/dL 1.6-2.6 [facility] Work Phone: Urea nitrogen/Creatinine [Mass ratio] 18.6 mg/mg 10-20 [facility] Work Phone: No Panel Informationon 10-25 Estimated GFR (MDRD) Amer 32 mL/min >60 [facility] Work Phone: Comment on above: GFR Calc Estimated GFR (MDRD) Non-Af Amer 27 mL/min >60 [facility] Work Phone: Comment on above: Non- GFR Calc Serum or plasma calcium amadou urement (mass/volume)on 10-25-2021 Calcium [Mass/Vol] 10.1 mg/dL 8.5-10.1 [facility] Work Phone: Serum or plasma creatinine m easurement (mass/volume)on 10-25-2021 Creatinine [Mass/Vol] 2.53 mg/dL 0.70-1.30 [facility] Work Phone: Comment on above: The validity of the calculated GFR & GFRAA in patients over 70 years has not been determined. Clinical correlation is essential. Serum or plasma urea nitroge n measurement (mass/volume)on 10-25-2021 Urea nitrogen [Mass/Vol] 47 mg/dL 7-18 [facility] Work Phone: Thin prep Papanicolaou smear with manual screeningon 10-25-2021 Thin prep Papanicolaou smear with manual screening 5 5-15 [facility] Work Phone: Absolute lymphocyte counton 10-22-2021 Lymphocytes Auto (Unsp spec) [#/Vol] 2.16 10*3/uL 0.83-4.51 [facility] Work Phone: Basophil percentageon 2021 Basophils/100 WBC (Bld) 0.5 % 0-1 [facility] Work Phone: Chloride [Moles/Vol] 95 mmol/L 98-107 [facility]: Eosinophils/100 WBC (Bld) 2.3 % 0-5 [facility] Work Phone: Glucose [Mass/Vol] 108 mg/dL 74-106 [facility] Work Phone: Comment on above: Fasting Glucose resu lt from 100 to 125 mg/dL suggests IMPAIRED HOMEOSTASIS per A.D.A. criteria. Neutrophils (Bld) [#/Vol] 4.2 10*3/uL 2.0-7.7 [facility] Work Phone: [phone] Neutrophils/100 WBC (Bld) 56.7 % 47-70 [facility] Work Phone: [phone] Potassium [Moles/Vol] 3.8 mmol/L 3.5-5.1 [facility] Work Phone: [phone] Sodium [Moles/Vol] 136 mmol/L 136-145 [facility] Work Phone: [phone] WBC (Bld) [#/Vol] 7.4 10*3/uL 4.4-11.0 [facility] Work Phone: [phone] Blood erythrocytes count (nu mber/volume)on 10-22-2021 RBC (Bld) [#/Vol] 4.75 10*6/uL 4.6-6.2 [facility] Work Phone: [phone] Blood hemoglobin measurement (mass/volume)on 10-22-2021 Hemoglobin (Bld) [Mass/Vol] 14.5 g/dL 13.0-16.5 [facility] Work Phone: Blood lymphocytes/100 leukoc yteson 10-22-2021 Lymphocytes/100 WBC (Bld) 29.0 % 19-41 [facility] Work Phone: Blood monocytes/100 leukocyt eson 10-22-2021 Monocytes/100 WBC (Bld) 10.8 % 0-10 [facility] Work Phone: Blood platelet mean volumeon 10-22-2021 Platelet mean volume (Bld) [Entitic vol] 10.4 fL 6.2-12.0 [facility] Work Phone: Determination of erythrocyte mean corpuscular volume (MCV)on 10-22-2021 MCV (RBC) [Entitic vol] 89.5 fL 80-94 [facility] Work Phone: Hematocrit Auto (Bld) [Volum e fraction]on 10-22-2021 Hematocrit (Bld) [Volume fraction] 42.5 % 40-54 [facility] Work Phone: Laboratory - Chemistry and C hemistry - challengeon 10-22-2021 CO2 [Moles/Vol] 30.0 mmol/L 21.0-32.0 [facility] Work Phone: [phone] Magnesium [Mass/Vol] 3.1 mg/dL 1.6-2.6 [facility] Work Phone: Urea nitrogen/Creatinine [Mass ratio] 19.1 mg/mg 10-20 [facility] Work Phone: Laboratory - Hematology and Cell countson 10-22-2021 Erythrocyte distribution width (RBC) [Entitic vol] 42.7 fL 35.1-43.9 [facility] Work Phone: Erythrocyte distribution width (RBC) [Ratio] 13.1 % 11.6-14.6 [facility] Work Phone: Immature granulocytes/100 WBC (Bld) 0.700 % 0.0-0.9 [facility] Work Phone: Comment on above: IG% - Immature Granu locytes (promyelocytes, myelocytes and metamyelocytes) > 1% indicates that a LEFT SHIFT is Present. MCH (RBC) [Entitic mass] 30.5 pg 27.0-32.0 [facility] Work Phone: Nucleated RBC/100 WBC (Bld) [Ratio] 0 % 0-5 [facility] Work Phone: MCHC Auto (RBC) [Mass/Vol]on 10-22-2021 MCHC (RBC) [Mass/Vol] 34.1 g/dL 32-36 [facility] Work Phone: No Panel Informationon 10-22 Estimated Creatinine Clearance Calc 22.31 ml/min [facility] Work Phone: Estimated GFR (MDRD) Amer 25 mL/min >60 [facility] Work Phone: Comment on above: GFR Calc Estimated GFR (MDRD) Non-Af Amer 21 mL/min >60 [facility] Work Phone: Comment on above: Non- GFR Calc Platelets bldon 10-22-2021 Platelets (Bld) [#/Vol] 185 10*3/uL 150-450 [facility] Work Phone: Serum or plasma calcium amadou urement (mass/volume)on 10-22-2021 Calcium [Mass/Vol] 10.1 mg/dL 8.5-10.1 [facility] Work Phone: Serum or plasma creatinine m easurement (mass/volume)on 10-22-2021 Creatinine [Mass/Vol] 3.14 mg/dL 0.70-1.30 [facility] Work Phone: Comment on above: The validity of the calculated GFR & GFRAA in patients over 70 years has not been determined. Clinical correlation is essential. Serum or plasma urea nitroge n measurement (mass/volume)on 10-22-2021 Urea nitrogen [Mass/Vol] 60 mg/dL 7-18 [facility] Work Phone: Thin prep Papanicolaou smear with manual screeningon 10-22-2021 Thin prep Papanicolaou smear with manual screening 11 5-15 [facility] Work Phone: Absolute lymphocyte counton 09-05-2021 Lymphocytes Auto (Unsp spec) [#/Vol] 1.34 10*3/uL 0.83-4.51 [facility] Work Phone: Basophil percentageon 2021 Basophils/100 WBC (Bld) 0.7 % 0-1 [facility] Work Phone: Bilirubin [Mass/Vol] 0.50 mg/dL 0.20-1.00 [facility] Work Phone: Comment on above: For patients on eltr ombopag therapy, use of Dimension Armstrong TBIL is not recommended. Chloride [Moles/Vol] 98 mmol/L 98-107 [facility] Work Phone: Eosinophils/100 WBC (Bld) 2.1 % 0-5 [facility] Work Phone: Glucose [Mass/Vol] 455 mg/dL 74-106 [facility] Work Phone: Comment on above: Critical Result(s) C alled at: 14:22:14 09/05/2021 by: GAL ZAZUETA RN P. Results read back by same.Glucose result greater than or equal to 200 mg/dLsuggests DIABETES MELLITUS per A.D.A. criteria. Neutrophils (Bld) [#/Vol] 5.4 10*3/uL 2.0-7.7 [facility] Work Phone: [phone] Neutrophils/100 WBC (Bld) 70.9 % 47-70 [facility] Work Phone: Potassium [Moles/Vol] 5.9 mmol/L 3.5-5.1 [facility] Work Phone: Protein [Mass/Vol] 7.2 g/dL 6.4-8.2 [facility] Work Phone: [phone] Sodium [Moles/Vol] 130 mmol/L 136-145 [facility] Work Phone: WBC (Bld) [#/Vol] 7.6 10*3/uL 4.4-11.0 [facility] Work Phone: Blood erythrocytes count (nu mber/volume)on 09-05-2021 RBC (Bld) [#/Vol] 4.66 10*6/uL 4.6-6.2 [facility] Work [facility]: Blood hemoglobin measurement (mass/volume)on 09-05-2021 Hemoglobin (Bld) [Mass/Vol] 14.3 g/dL 13.0-16.5 [facility] Work Phone: Blood lymphocytes/100 leukoc yteson 09-05-2021 Lymphocytes/100 WBC (Bld) 17.6 % 19-41 [facility] Work Phone: Blood monocytes/100 leukocyt eson 09-05-2021 Monocytes/100 WBC (Bld) 8.0 % 0-10 [facility] Work Phone: Blood platelet mean volumeon 09-05-2021 Platelet mean volume (Bld) [Entitic vol] 10.7 fL 6.2-12.0 [facility] Work Phone: Determination of erythrocyte mean corpuscular volume (MCV)on 09-05-2021 MCV (RBC) [Entitic vol] 91.6 fL 80-94 [facility] Work Phone: Hematocrit Auto (Bld) [Volum e fraction]on 09-05-2021 Hematocrit (Bld) [Volume fraction] 42.7 % 40-54 [facility] Work Phone: Laboratory - Chemistry and C hemistry - challengeon 09-05-2021 ALP [Catalytic activity/Vol] 71 U/L 45-117 [facility] Work Phone: ALT [Catalytic activity/Vol] 27 U/L 16-61 [facility] Work Phone: CO2 [Moles/Vol] 25.0 mmol/L 21.0-32.0 [facility] Work Phone: Globulin (S) [Mass/Vol] 3.9 g/dL 2.2-4.2 [facility] Work Phone: Urea nitrogen/Creatinine [Mass ratio] 22.4 mg/mg 10-20 [facility] Work Phone: Laboratory - Hematology and Cell countson 09-05-2021 Erythrocyte distribution width (RBC) [Entitic vol] 43.6 fL 35.1-43.9 [facility] Work Phone: Erythrocyte distribution width (RBC) [Ratio] 13.0 % 11.6-14.6 [facility] Work Phone: Immature granulocytes/100 WBC (Bld) 0.700 % 0.0-0.9 [facility] Work Phone: Comment on above: IG% - Immature Granu locytes (promyelocytes, myelocytes and metamyelocytes) > 1% indicates that a LEFT SHIFT is Present. MCH (RBC) [Entitic mass] 30.7 pg 27.0-32.0 [facility] Work Phone: Nucleated RBC/100 WBC (Bld) [Ratio] 0 % 0-5 [facility] Work Phone: MCHC Auto (RBC) [Mass/Vol]on 09-05-2021 MCHC (RBC) [Mass/Vol] 33.5 g/dL 32-36 [facility] Work Phone: No Panel Informationon 09-05 Estimated GFR (MDRD) Amer 35 mL/min >60 [facility] Work Phone: Comment on above: GFR Calc Estimated GFR (MDRD) Non-Af Amer 29 mL/min >60 [facility] Work Phone: Comment on above: Non- GFR Calc Thyroid Stimulating Hormone (TSH) 0.71 uIU/mL 0.358-3.74 [facility] Work Phone: Platelets bldon 09-05-2021 Platelets (Bld) [#/Vol] 150 10*3/uL 150-450 [facility] Work Phone: Serum or plasma albumin amadou urement (mass/volume)on 09-05-2021 Albumin [Mass/Vol] 3.3 g/dL 3.2-5.0 [facility] Work Phone: Serum or plasma albumin/glob ulin mass ratioon 09-05-2021 Albumin/Globulin [Mass ratio] 0.8 {ratio} 0.9-2.4 [facility] Work Phone: Serum or plasma calcium amadou urement (mass/volume)on 09-05-2021 Calcium [Mass/Vol] 9.3 mg/dL 8.5-10.1 [facility] Work Phone: Serum or plasma creatinine m easurement (mass/volume)on 09-05-2021 Creatinine [Mass/Vol] 2.32 mg/dL 0.70-1.30 [facility] Work Phone: Comment on above: The validity of the calculated GFR & GFRAA in patients over 70 years has not been determined. Clinical correlation is essential. Serum or plasma urea nitroge n measurement (mass/volume)on 09-05-2021 Urea nitrogen [Mass/Vol] 52 mg/dL 7-18 [facility] Work Phone: Thin prep Papanicolaou smear with manual screeningon 09-05-2021 Thin prep Papanicolaou smear with manual screening 20 U/L 15-37 [facility] Work Phone: Thin prep Papanicolaou smear with manual screening 7 5-15 [facility] Work Phone: Whole blood hemoglobin A1c/t otal hemoglobin ratio (mass fraction)on 09-05-2021 HbA1c (Bld) [Mass fraction] 11.6 % 3.8-5.6 [facility] Work Phone: Comment on above: Normal < 5.7 % Predi abetic 5.7 - 6.4 % Diabetic >or= 6.5 % Please note range changes. Basic Metabolic Panelon Anion gap molar conc 4 Normal [facility] Comment on above: Performed By: #### H EMDF, CMP3, MG3, BNP3, TROPN #### [place] [address] [place], [place] Calcium mass conc 8.3 mg/dL Low 8.4-10.[address] [facility] Comment on above: Performed By: #### H EMDF, CMP3, MG3, BNP3, TROPN #### [place] [address] [address] [place], [place] CO2 molar conc 23 mmol/L Normal 22-[address] [facility] Comment on above: Performed By: #### H EMDF, CMP3, MG3, BNP3, TROPN #### [place] [address] [place], [place] Glucose mass conc 250 mg/dL High 70-[address] [facility] Comment on above: Performed By: #### H EMDF, CMP3, MG3, BNP3, TROPN #### [place] [address] [place], [place] Urea nitrogen mass conc 26 mg/dL High 7-20 [facility] Comment on above: Performed By: #### H EMDF, CMP3, MG3, BNP3, TROPN #### [place] [address] [place], [place] Creatinine mass conc 1.18 mg/dL Normal 0.52-1.25 [facility] Comment on above: Performed By: #### H EMDF, CMP3, MG3, BNP3, TROPN #### [place] [address] [place], [place] GFR/1.73 sq M predicted among blacks MDRD vol rate/area (S/P/Bld) mL/min/{1.73_m2} Normal >[address] [facility] Comment on above: Performed By: #### H EMDF, CMP3, MG3, BNP3, TROPN #### [place] [address] [place], [place] GFR/1.73 sq M predicted among non-blacks MDRD vol rate/area (S/P/Bld) mL/min/{1.73_m2} Normal >[address] [facility] Comment on above: Result Comment: Sour ce- MDRD equation with creatinine calibration to IDMS(NKDEP) eGFR not recommended for drug dose adjustment Performed By: #### H EMDF, CMP3, MG3, BNP3, TROPN #### [facility] [address] [place] [address] Chloride molar conc 110 mmol/L High 98-[address] [facility] Comment on above: Performed By: #### H EMDF, CMP3, MG3, BNP3, TROPN #### [place] [address] [place] [address] Potassium molar conc 4.7 mmol/L Normal 3.5-5.1 [facility] Comment on above: Result Comment: Slig htly hemolysed, interpret with caution. Performed By: #### H EMDF, CMP3, MG3, BNP3, TROPN #### [place] [address] [place] [address] Sodium molar conc 137 mmol/L Normal 135-[address] [facility] Comment on above: Performed By: #### H EMDF, CMP3, MG3, BNP3, TROPN #### [place] [address] [place] [address] Glucose,Bedsideon 06-05-2018 Glucose mass conc 222 mg/dL High 70-[address] [facility] Comment on above: Result Comment: Test performed by glucose meter. Results may be 10%-15% lower than serum/plasma values. (CLIA ID [id number]) Performed By: #### H EMDF, CMP3, MG3, BNP3, TROPN #### [facility] [address] [place] [address] Glucose mass conc 221 mg/dL High 70-[address] [facility] Comment on above: Result Comment: Test performed by glucose meter. Results may be 10%-15% lower than serum/plasma values. (CLIA ID [id number]) Performed By: #### H EMDF, CMP3, MG3, BNP3, TROPN #### [place] [address] [place], [place] Glucose mass conc 165 mg/dL High 70-[address] [facility] Comment on above: Result Comment: Test performed by glucose meter. Results may be 10%-15% lower than serum/plasma values. (CLIA ID [id number]) Performed By: #### H EMDF, CMP3, MG3, BNP3, TROPN #### [address] Hemogramon 06-05-2018 Erythrocyte distribution width Ratio (RBC) 12.8 % Normal 11.5-14.[address] [facility] Comment on above: Performed By: #### H EMDF, CMP3, MG3, BNP3, TROPN #### [place] [address] [place], [place] Hematocrit Volume Fraction (Bld) 43.6 % Normal 40.0-52.[address] [facility] Comment on above: Performed By: #### H EMDF, CMP3, MG3, BNP3, TROPN #### [address] Hemoglobin mass conc (Bld) 15.2 g/dL Normal 13.0-18.[address] [facility] Comment on above: Performed By: #### H EMDF, CMP3, MG3, BNP3, TROPN #### [address] MCH Entitic mass (RBC) 33.2 pg Normal 26.0-34.0 [facility] Comment on above: Performed By: #### H EMDF, CMP3, MG3, BNP3, TROPN #### [address] MCHC mass conc (RBC) 34.9 % Normal 32.0-36.0 [facility] Comment on above: Performed By: #### H EMDF, CMP3, MG3, BNP3, TROPN #### [place] [address] [place], [place] MCV Entitic volume (RBC) 95.1 fL Normal 80.0-98.[address] [facility] Comment on above: Performed By: #### H EMDF, CMP3, MG3, BNP3, TROPN #### [place] [address] [place], [place] Platelet mean volume Entitic volume (Bld) 8.9 fL Normal 7.4-10.[address] [facility] Comment on above: Performed By: #### H EMDF, CMP3, MG3, BNP3, TROPN #### [address] [address] [place], [place] Platelets #/vol (Bld) 141 10*3/uL Normal 140-440 [facility] Comment on above: Performed By: #### H EMDF, CMP3, MG3, BNP3, TROPN #### [address] RBC #/vol (Bld) 4.58 10*6/uL Normal 4.40-5.[address] [facility] Comment on above: Performed By: #### H EMDF, CMP3, MG3, BNP3, TROPN #### [address] [address] [address] [place], [place] WBC #/vol (Bld) 6.5 10*3/uL Normal 3.6-10.[address] [facility] Comment on above: Performed By: #### H EMDF, CMP3, MG3, BNP3, TROPN #### [address] Magnesiumon 06-05-2018 Magnesium mass conc 2.0 mg/dL Normal 1.6-2.[address] [facility] Comment on above: Result Comment: Slig htly hemolysed, interpret with caution. Performed By: #### H EMDF, CMP3, MG3, BNP3, TROPN #### [address] [place], [place] Phosphoruson 06-05-2018 Phosphate mass conc 3.4 mg/dL Normal 2.5-4.[address] [facility] Comment on above: Performed By: #### H EMDF, CMP3, MG3, BNP3, TROPN #### [address] [address] [place], [place] Basic Metabolic Panelon 03-0 Calcium mass conc 8.4 mg/dL Normal 8.4-10.[address] [facility] Comment on above: Performed By: #### H EMDF, CMP3, MG3, BNP3, TROPN #### [facility] [address] [place], [place] Anion gap molar conc 5 Normal [facility] Comment on above: Performed By: #### H EMDF, CMP3, MG3, BNP3, TROPN #### [facility] [address] [place], [place] CO2 molar conc 26 mmol/L Normal 22-[address] [facility] Comment on above: Performed By: #### H EMDF, CMP3, MG3, BNP3, TROPN #### [address] [address] [address] [place], [place] Creatinine mass conc 1.48 mg/dL High 0.52-1.25 [facility] Comment on above: Performed By: #### H EMDF, CMP3, MG3, BNP3, TROPN #### [address] [address] [address] [place], [place] GFR/1.73 sq M predicted among blacks MDRD vol rate/area (S/P/Bld) 56.6 mL/min/{1.73_m2} Normal >[address] [facility] Comment on above: Performed By: #### H EMDF, CMP3, MG3, BNP3, TROPN #### [facility] [address] [place], [place] GFR/1.73 sq M predicted among non-blacks MDRD vol rate/area (S/P/Bld) 46.7 mL/min/{1.73_m2} Normal >60 [facility] Comment on above: Result Comment: Sour ce- MDRD equation with creatinine calibration to IDMS(NKDEP) eGFR not recommended for drug dose adjustment Performed By: #### H EMDF, CMP3, MG3, BNP3, TROPN #### [facility] [address] [place], [place] Glucose mass conc 229 mg/dL High 70-[address] [facility] Comment on above: Performed By: #### H EMDF, CMP3, MG3, BNP3, TROPN #### [facility] [address] [place], [place] Urea nitrogen mass conc 35 mg/dL High 7-20 [facility] Comment on above: Performed By: #### H EMDF, CMP3, MG3, BNP3, TROPN #### [facility] [address] [place], [place] Chloride molar conc 109 mmol/L High 98-[address] [facility] Comment on above: Performed By: #### H EMDF, CMP3, MG3, BNP3, TROPN #### [address] [address] [address] [place], [place] Potassium molar conc 4.5 mmol/L Normal 3.5-5.1 [facility] Comment on above: Performed By: #### H EMDF, CMP3, MG3, BNP3, TROPN #### [facility] [address] [place], [place] Sodium molar conc 139 mmol/L Normal 135-[address] [facility] Comment on above: Performed By: #### H EMDF, CMP3, MG3, BNP3, TROPN #### [address] [address] [address] [place], [place] Glucose,Bedsideon 06-04-2018 Glucose mass conc 262 mg/dL High 70-[address] [facility] Comment on above: Result Comment: Test performed by glucose meter. Results may be 10%-15% lower than serum/plasma values. (CLIA ID [id number]) Performed By: #### H EMDF, CMP3, MG3, BNP3, TROPN #### [facility] [address] [place], [place] Glucose mass conc 192 mg/dL High 70-[address] [facility] Comment on above: Result Comment: Test performed by glucose meter. Results may be 10%-15% lower than serum/plasma values. (CLIA ID [id number]) Performed By: #### H EMDF, CMP3, MG3, BNP3, TROPN #### [address] [place] [address] Hemogram w/ Autodiffon 06-04 Abs Baso Cnt 0.0 10*3/uL Normal 0.0-0.[address] [facility] Comment on above: Performed By: #### H EMDF, CMP3, MG3, BNP3, TROPN #### [address] [address] [place] [address] Abs Neutrophile Cnt 3.4 10*3/uL Normal 1.8-7.0 [facility] Comment on above: Performed By: #### H EMDF, CMP3, MG3, BNP3, TROPN #### [address] Basophils/100 WBC (Bld) 0.3 % Normal 0.0-2.0 [facility] Comment on above: Performed By: #### H EMDF, CMP3, MG3, BNP3, TROPN #### [address] Eosinophils #/vol (Bld) 0.2 10*3/uL Normal 0.0-0.[address] [facility] Comment on above: Performed By: #### H EMDF, CMP3, MG3, BNP3, TROPN #### [address] Eosinophils/100 WBC (Bld) 2.7 % Normal 1.0-6.[address] [facility] Comment on above: Performed By: #### H EMDF, CMP3, MG3, BNP3, TROPN #### [address] Erythrocyte distribution width Ratio (RBC) 13.1 % Normal 11.5-14.[address] [facility] Comment on above: Performed By: #### H EMDF, CMP3, MG3, BNP3, TROPN #### [address] Granulocytes/100 WBC (Bld) 57.4 % Normal 40.0-80.[address] [facility] Comment on above: Performed By: #### H EMDF, CMP3, MG3, BNP3, TROPN #### [address] Hematocrit Volume Fraction (Bld) 43.3 % Normal 40.0-52.[address] [facility] Comment on above: Performed By: #### H EMDF, CMP3, MG3, BNP3, TROPN #### [address] Hemoglobin mass conc (Bld) 15.0 g/dL Normal 13.0-18.[address] [facility] Comment on above: Performed By: #### H EMDF, CMP3, MG3, BNP3, TROPN #### [address] Lymphocytes #/vol (Bld) 1.8 10*3/uL Normal 1.0-4.[address] [facility] Comment on above: Performed By: #### H EMDF, CMP3, MG3, BNP3, TROPN #### [address] Lymphocytes/100 WBC (Bld) 29.9 % Normal 20.0-40.[address] [facility] Comment on above: Performed By: #### H EMDF, CMP3, MG3, BNP3, TROPN #### [address] MCH Entitic mass (RBC) 33.1 pg Normal 26.0-34.0 [facility] Comment on above: Performed By: #### H EMDF, CMP3, MG3, BNP3, TROPN #### [address] MCHC mass conc (RBC) 34.6 % Normal 32.0-36.0 [facility] Comment on above: Performed By: #### H EMDF, CMP3, MG3, BNP3, TROPN #### [address] MCV Entitic volume (RBC) 95.7 fL Normal 80.0-98.[address] [facility] Comment on above: Performed By: #### H EMDF, CMP3, MG3, BNP3, TROPN #### [facility] [address] [place], [place] Monocytes #/vol (Bld) 0.6 10*3/uL Normal 0.0-0.8 [facility] Comment on above: Performed By: #### H EMDF, CMP3, MG3, BNP3, TROPN #### [facility] [address] [place], [place] Monocytes/100 WBC (Bld) 9.7 % Normal 2.0-10.0 [facility] Comment on above: Performed By: #### H EMDF, CMP3, MG3, BNP3, TROPN #### [address] [address] [address] [place], [place] Platelet mean volume Entitic volume (Bld) 8.8 fL Normal 7.4-10.[address] [facility] Comment on above: Performed By: #### H EMDF, CMP3, MG3, BNP3, TROPN #### [address] [address] [address] [place], [place] Platelets #/vol (Bld) 144 10*3/uL Normal 140-440 [facility] Comment on above: Performed By: #### H EMDF, CMP3, MG3, BNP3, TROPN #### [address] [address] [address] [place], [place] RBC #/vol (Bld) 4.52 10*6/uL Normal 4.40-5.[address] [facility] Comment on above: Performed By: #### H EMDF, CMP3, MG3, BNP3, TROPN #### [facility] [address] [place], [place] WBC #/vol (Bld) 5.9 10*3/uL Normal 3.6-10.[address] [facility] Comment on above: Performed By: #### H EMDF, CMP3, MG3, BNP3, TROPN #### [address] [address] [place], [place] Magnesiumon 06-04-2018 Magnesium mass conc 2.2 mg/dL Normal 1.6-2.[address] [facility] Comment on above: Performed By: #### H EMDF, CMP3, MG3, BNP3, TROPN #### [facility] [address] [place] [address] Phosphoruson 06-04-2018 Phosphate mass conc 3.9 mg/dL Normal 2.5-4.[address] [facility] Comment on above: Performed By: #### H EMDF, CMP3, MG3, BNP3, TROPN #### [facility] [address] [place] [address] Albumin, Serumon 06-03-2018 Albumin mass conc 3.6 g/dL Normal 3.5-5.[address] [facility] Comment on above: Performed By: #### A LB3 #### [facility] [address] 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 The heart demonstrates normal size. Calcification of the thoracic aorta is noted. There is pulmonary venous congestion without ashish pulmonary edema. No consolidation. There is no sizable pleural effusion. Degenerative change of the thoracic spine is noted. IMPRESSION: Pulmonary venous congestion without ashish edema or consolidation. Report Dictated on Final Dictated: 06/03/2018 8:07 am Dictating Physician: MD MANRIQUE NICHOLAS Signed Date and Time: 06/03/2018 8:08 am Signed by: MD MANRIQUE NICHOLAS Transcribed Date and Time: 06/03/2018 8:[address] [facility] Comp Metabolic Panelon 06-03 ALP enzyme act/vol 64 U/L Normal 38-[address] [facility] Comment on above: Performed By: #### H EMDF, CMP3, MG3, BNP3, TROPN #### [facility] [address] [place], [place] ALT enzyme act/vol 21 U/L Normal 13-[address] [facility] Comment on above: Performed By: #### H EMDF, CMP3, MG3, BNP3, TROPN #### [address] [address] [place], [place] Anion gap molar conc 6 Normal [facility] Comment on above: Performed By: #### H EMDF, CMP3, MG3, BNP3, TROPN #### [address] AST enzyme act/vol 26 U/L Normal 15-[address] [facility] Comment on above: Performed By: #### H EMDF, CMP3, MG3, BNP3, TROPN #### [address] Calcium mass conc 8.8 mg/dL Normal 8.4-10.[address] [facility] Comment on above: Performed By: #### H EMDF, CMP3, MG3, BNP3, TROPN #### [address] CO2 molar conc 27 mmol/L Normal 22-[address] [facility] Comment on above: Performed By: #### H EMDF, CMP3, MG3, BNP3, TROPN #### [address] [address] [place], [place] Glucose mass conc 268 mg/dL High 70-[address] [facility] Comment on above: Performed By: #### H EMDF, CMP3, MG3, BNP3, TROPN #### [address] Protein mass conc 6.6 g/dL Normal 6.3-8.[address] [facility] Comment on above: Performed By: #### H EMDF, CMP3, MG3, BNP3, TROPN #### [address] Urea nitrogen mass conc 34 mg/dL High 7-20 [facility] Comment on above: Performed By: #### H EMDF, CMP3, MG3, BNP3, TROPN #### [facility] [address] [place], [place] Bilirubin mass conc 0.5 mg/dL Normal 0.2-1.[address] [facility] Comment on above: Performed By: #### H EMDF, CMP3, MG3, BNP3, TROPN #### [address] [address] [address] [place], [place] Creatinine mass conc 1.59 mg/dL High 0.52-1.25 [facility] Comment on above: Performed By: #### H EMDF, CMP3, MG3, BNP3, TROPN #### [address] [address] [place], [place] GFR/1.73 sq M predicted among blacks MDRD vol rate/area (S/P/Bld) 52.1 mL/min/{1.73_m2} Normal >[address] [facility] Comment on above: Performed By: #### H EMDF, CMP3, MG3, BNP3, TROPN #### [address] [address] [address] [place], [place] GFR/1.73 sq M predicted among non-blacks MDRD vol rate/area (S/P/Bld) 43.0 mL/min/{1.73_m2} Normal >60 [facility] Comment on above: Result Comment: Sour ce- MDRD equation with creatinine calibration to IDMS(NKDEP) eGFR not recommended for drug dose adjustment Performed By: #### H EMDF, CMP3, MG3, BNP3, TROPN #### [address] [address] [place], [place] Albumin mass conc 3.7 g/dL Normal 3.5-5.[address] [facility] Comment on above: Performed By: #### H EMDF, CMP3, MG3, BNP3, TROPN #### [address] [address] [place], [place] Chloride molar conc 106 mmol/L Normal 98-[address] [facility] Comment on above: Performed By: #### H EMDF, CMP3, MG3, BNP3, TROPN #### [facility] [address] [place] [address] Potassium molar conc 4.6 mmol/L Normal 3.5-5.1 [facility] Comment on above: Performed By: #### H EMDF, CMP3, MG3, BNP3, TROPN #### [facility] [address] [place] [address] Sodium molar conc 138 mmol/L Normal 135-[address] [facility] Comment on above: Performed By: #### H EMDF, CMP3, MG3, BNP3, TROPN #### [address] [address] ED Provider Noteon 9 Protein mass conc THIS NOTE CONTAINS PATIENT DISPOSITION. USE THIS NOTE. PATIENT WAS SIGNED OUT TO ME BY DR. Ibarra. Please see his/her initial documentation for details of the patient's initial ED presentation, physical exam and completed studies. In brief: 72-year-old male presents for V. tach versus SVT Patient has a history of NH and an AICD placement. He was transferred from [facility] for palpitations when they discovered that he had a rapid heart rate in the 150s. He got Cardizem there, with no effect. He got cardioverted externally 3 Times also no effect. The patient has not had any discharge/defibrillat ion from his AICD itself. The CCU asked that the patient be transferred to the emergency department at [facility] and he is currently in the ED. He is persistently tachycardic at 1 56 bpm. Additionally, the patient has a [employer] mechanical service technician for his pacemaker was interrogated his pacemaker, they are questioning whether this is SVT with a aberrant conduction circuit or whether this is true V. tach CCU is on the way down to see the patient, they do not want us to give any IV medications or cardiovert the patient at this time as he has a slightly low blood pressure but is neurologically completely normal Patient resting comfortably in bed, laughing and smiling while supine and talking on a cell phone, appears largely unaffected despite his circumstances. Still having palpitations, still tachycardic. Slightly hypotensive in the 80s systolic but does not appear to be symptomatic from. Awaiting CCU. Pacemaker mechanical service technician also en route to ED. Metabolic panel shows no metabolic acidosis, suboptimal kidney function, hyperglycemic at 268 Troponin within normal limits at 0.020 Aminotransferases alkaline phosphate is unremarkable Normal white blood cell count Nonanemic CCU team at bedside along with Gretchen make her mechanical service technician. Originally the CCU was considering using ketamine given that the patient was hypotensive in the 80s systolic rather than propofol, in order to reprogram his pacer to pace him but avoid the possibility of defibrillation by the pacemaker while he was awake. However, eventually they decided not to do this procedure and instead place the patient on a lidocaine drip. Upon further investigation, CCU team feels that this is more consistent with ventricular tachycardia than it is SVT with aberrant conduction circuit. Patient will be admitted to the [facility]. Clinical impression: Ventricular tachycardia, palpitations Cisco Galindo MD 06/03/[address] [facility] Echo Complete w/wo Contrasto n 06-03-2018 Echo Complete w/wo Contrast Patient Name: PARK SOUSA Ultrasound Exam Date/Time 06/03/2018 13:53:48 EST Exam Echo Complete w/wo Contrast Ordering Physician MD LATIA, ELISA Accession Number [id number] Reason For Exam Slow VT Report TRANSTHORACIC ECHOCARDIOGRAM PATIENT: Park Sousa STUDY DATE: 06/03/2018 : 1945 AGE: 72 HT/WT: 182.9 cm (72 108.9 kg (239.5 in) lb) GENDER: M BP: 132 / LOCATION: [facility] PATIENT Inpatient [facility] STATUS: *ORDERING PHYSICIAN: * Elisa Chacon *READING PHYSICIAN: * Alysia Toscano MD *CLINICAL PHARMACY TECHNICIAN: * Vernell Warren --- INDICATIONS: Slow V tach. --- CONCLUSIONS SUMMARY: 1. Left ventricle: The cavity size is near upper normal. Wall thickness is moderately increased. Systolic function is mildly decreased by the biplane method of disks. The estimated ejection fraction is 47%. Akinesis with wall thinning of the basal inferolateral (posterior) myocardium; appears aneurysmal. Akinesis and thinning of the basal inferior myocardium; appears aneurysmal. Doppler parameters are consistent with abnormal left ventricular relaxation (grade 1 diastolic dysfunction). 2. No significant valve disease. --- STUDY DATA: Complete transthoracic echocardiogram. Procedure: Image quality was poor. The study was technically limited due to body habitus. Intravenous imaging enhancement (Definity) was administered to opacify the chamber. Definity lot #: [id number]. M-mode, complete 2D, complete spectral Doppler, and color flow Doppler images were acquired and archived for permanent storage and are available for subsequent review. Study status: Routine. Patient status: Inpatient. --- FINDINGS LEFT VENTRICLE: The cavity size is near upper normal. Wall thickness is moderately increased. Systolic function is mildly decreased by the biplane method of disks. The estimated ejection fraction is 47%. Regional wall motion abnormalities: Akinesis with wall thinning of the basal inferolateral (posterior) myocardium; appears aneurysmal. Akinesis and thinning of the basal inferior myocardium; appears aneurysmal. Doppler parameters are consistent with abnormal left ventricular relaxation (grade 1 diastolic dysfunction). RIGHT VENTRICLE: The cavity size is normal. Wall thickness is normal. Pacer wire noted in the right ventricle. Systolic function is normal. Right ventricular systolic pressure is within the normal range. VENTRICULAR SEPTUM: There is no evidence of a ventricular septal defect. LEFT ATRIUM: The atrium is normal in size. RIGHT ATRIUM: The atrium is normal in size. Linear echo density in the RA, which could be device wire or IV central catheter. ATRIAL SEPTUM: Color Doppler shows no evidence of shunt. MITRAL VALVE: Mildly calcified annulus. Mildly thickened leaflets. Doppler: There is trivial, less than 1+ regurgitation. AORTIC VALVE: Trileaflet; mildly thickened leaflets. Doppler: There is no regurgitation. Peak gradient (S): 6 mm Hg. Peak velocity (S): 1.2 m/sec. TRICUSPID VALVE: Structurally normal valve. Doppler: There is trivial, less than 1+ regurgitation. PULMONIC VALVE: Structurally normal valve. Doppler: There is no regurgitation. AORTA: The aorta is normal. PULMONARY ARTERY: Main pulmonary artery: Normal. PERICARDIUM: There is no pericardial effusion. SYSTEMIC VEINS: Inferior vena cava: The vessel is dilated. The IVC collapses by greater than 50% with inspiration. --- Measurements Left ventricle Value Reference LV ID, ED 5.8 cm 4.2 - 5.9 LV ID, ES 4.6 cm --------- LV PW thickness, ED (H) 1.1 cm 0.6 - 1.0 LV end-diastolic volume, 1-p A4C 122 ml 67 - 155 LV end-systolic volume, 1-p A4C (H) 59 ml 22 - 58 LV end-diastolic volume, 2-p 132 ml 67 - 155 LV end-systolic volume, 2-p (H) 70 ml 22 - 58 LV ejection fraction, 2-p (L) 47 % >=55 LV E/e', lateral 10.3 --------- LV E/e', medial 16.7 --------- LV E/e', average 12.8 --------- Ventricular septum Value Reference IVS thickness, ED (H) 1.5 cm 0.6 - 1.0 LVOT Value Reference LVOT ID, A-P 2.5 cm --------- LVOT mean velocity, S 0.6 m/sec --------- LVOT VTI, S 17.5 cm --------- LVOT peak gradient, S 3 mm Hg --------- Stroke volume (SV), LVOT DP 87 ml --------- Stroke index (SV/bsa), LVOT DP 37 ml/m2 --------- Aortic valve Value Reference Aortic valve peak velocity, S 1.2 m/sec --------- Aortic peak gradient, S 6 mm Hg --------- Aorta Value Reference Aortic root ID 3.5 cm <4.4 Aortic root ID, STJ, ED 2.5 cm --------- Ascending aorta ID, A-P 3.4 cm --------- Ascending aorta ID, A-P, S 3.4 cm --------- Left atrium Value Reference LA volume/bsa, ES, 2-p 23 ml/m2 --------- Mitral valve Value Reference Mitral E-wave peak velocity 0.4 m/sec --------- Mitral A-wave peak velocity 1.1 m/sec --------- Mitral deceleration time 386 ms --------- Mitral E/A ratio, peak 0.4 --------- Pulmonary arteries Value Reference PA pressure, S, DP 32 mm Hg --------- Tricuspid valve Value Reference Tricuspid regurg peak velocity 2.5 m/sec --------- Tricuspid peak RV-RA gradient 24 mm Hg --------- Right atrium Value Reference RA area, ES, A4C 16 cm2 10 - 18 Systemic veins Value Reference Estimated RAP 8 mm Hg --------- Right ventricle Value Reference RV ID, minor axis, ED, A4C base 3.2 cm 2.4 - 4.2 RV ID, minor axis, ED, A4C mid 2.4 cm 2.0 - 3.5 TAPSE 1.8 cm --------- RV pressure, S, DP 32 mm Hg --------- RV s', lateral, S 0.09 m/sec --------- Legend: (L) and (H) denisa values outside specified reference range. Electronically signed by Alysia Toscano MD 06/03/2018 14:31 Final Dictated: 06/03/2018 2:31 pm Dictating Physician: MD TOSCANO LORETTA Signed Date and Time: 06/03/2018 2:31 pm Signed by: MD TOSCANO LORETTA Normal [facility] Glucose,Bedsideon 06-03-2018 Glucose mass conc 219 mg/dL High [address] Comment on above: Result Comment: Test performed by glucose meter. Results may be 10%-15% lower than serum/plasma values. (CLIA ID [id number]) Performed By: #### H EMDF, CMP3, MG3, BNP3, TROPN #### [facility] [address] Glucose mass conc 263 mg/dL High [address] Comment on above: Result Comment: Test performed by glucose meter. Results may be 10%-15% lower than serum/plasma values. (CLIA ID [id number]) Performed By: #### B GLU #### [facility] [address] [place] [address] Glucose mass conc 205 mg/dL High [address] Comment on above: Result Comment: Test performed by glucose meter. Results may be 10%-15% lower than serum/plasma values. (CLIA ID [id number]) Performed By: #### B GLU #### [facility] [address] [place] [id number] Hemogram w/ Autodiffon 06-03 Abs Baso Cnt 0.0 10*3/uL Normal 0.0-0.[address] [facility] Comment on above: Performed By: #### H EMDF, CMP3, MG3, BNP3, TROPN #### [address] Abs Neutrophile Cnt 6.1 10*3/uL Normal 1.8-7.0 [facility] Comment on above: Performed By: #### H EMDF, CMP3, MG3, BNP3, TROPN #### [address] Basophils/100 WBC (Bld) 0.5 % Normal 0.0-2.0 [facility] Comment on above: Performed By: #### H EMDF, CMP3, MG3, BNP3, TROPN #### [address] Eosinophils #/vol (Bld) 0.1 10*3/uL Normal 0.0-0.[address] [facility] Comment on above: Performed By: #### H EMDF, CMP3, MG3, BNP3, TROPN #### [address] Eosinophils/100 WBC (Bld) 1.5 % Normal 1.0-6.[address] [facility] Comment on above: Performed By: #### H EMDF, CMP3, MG3, BNP3, TROPN #### [address] Erythrocyte distribution width Ratio (RBC) 13.6 % Normal 11.5-14.[address] [facility] Comment on above: Performed By: #### H EMDF, CMP3, MG3, BNP3, TROPN #### [address] Granulocytes/100 WBC (Bld) 70.3 % Normal 40.0-80.[address] [facility] Comment on above: Performed By: #### H EMDF, CMP3, MG3, BNP3, TROPN #### [address] Hematocrit Volume Fraction (Bld) 49.5 % Normal 40.0-52.[address] [facility] Comment on above: Performed By: #### H EMDF, CMP3, MG3, BNP3, TROPN #### [address] Hemoglobin mass conc (Bld) 17.0 g/dL Normal 13.0-18.[address] [facility] Comment on above: Performed By: #### H EMDF, CMP3, MG3, BNP3, TROPN #### [address] Lymphocytes #/vol (Bld) 1.7 10*3/uL Normal 1.0-4.[address] [facility] Comment on above: Performed By: #### H EMDF, CMP3, MG3, BNP3, TROPN #### [address] Lymphocytes/100 WBC (Bld) 19.2 % Low 20.0-40.[address] [facility] Comment on above: Performed By: #### H EMDF, CMP3, MG3, BNP3, TROPN #### [address] MCH Entitic mass (RBC) 32.9 pg Normal 26.0-34.0 [facility] Comment on above: Performed By: #### H EMDF, CMP3, MG3, BNP3, TROPN #### [address] MCHC mass conc (RBC) 34.3 % Normal 32.0-36.0 [facility] Comment on above: Performed By: #### H EMDF, CMP3, MG3, BNP3, TROPN #### [address] MCV Entitic volume (RBC) 96.0 fL Normal 80.0-98.[address] [facility] Comment on above: Performed By: #### H EMDF, CMP3, MG3, BNP3, TROPN #### [place] [address] [address] [place], [place] Monocytes #/vol (Bld) 0.7 10*3/uL Normal 0.0-0.8 [facility] Comment on above: Performed By: #### H EMDF, CMP3, MG3, BNP3, TROPN #### [place] [address] [place], [place] Monocytes/100 WBC (Bld) 8.5 % Normal 2.0-10.0 [facility] Comment on above: Performed By: #### H EMDF, CMP3, MG3, BNP3, TROPN #### [address] Platelet mean volume Entitic volume (Bld) 8.6 fL Normal 7.4-10.[address] [facility] Comment on above: Performed By: #### H EMDF, CMP3, MG3, BNP3, TROPN #### [address] Platelets #/vol (Bld) 161 10*3/uL Normal 140-440 [facility] Comment on above: Performed By: #### H EMDF, CMP3, MG3, BNP3, TROPN #### [address] RBC #/vol (Bld) 5.16 10*6/uL Normal 4.40-5.[address] [facility] Comment on above: Performed By: #### H EMDF, CMP3, MG3, BNP3, TROPN #### [place] [address] [address] [place], [place] WBC #/vol (Bld) 8.8 10*3/uL Normal 3.6-10.[address] [facility] Comment on above: Performed By: #### H EMDF, CMP3, MG3, BNP3, TROPN #### [address] Magnesiumon 06-03-2018 Magnesium mass conc 2.2 mg/dL Normal 1.6-2.3 [facility] on above: Performed By: #### H EMDF, CMP3, MG3, BNP3, TROPN #### [employer] [address] [place] [phone] NT pro BNPon 06-03-2018 Natriuretic peptide B mass conc (Bld) 769 pg/mL High 0-125 [facility] Comment on above: Performed By: #### H EMDF, CMP3, MG3, BNP3, TROPN #### [address] [place] [id number] Troponin Ion 06-03-2018 Troponin I.cardiac mass conc 0.020 ng/mL Normal 0.000-0.034 [facility] Comment on above: Result Comment: 0.04 6 - 0.400 = Indeterminate > 0.400 = Consider Myocardial Injury Performed By: #### H EMDF, CMP3, MG3, BNP3, TROPN #### [employer] [address] [place] [phone] Lab Report: Liver Profileon 02-11-2017 Alanine aminotransferase (ALT) 35 U/L Invalid Interpretation Code 12-78 [employer] Work Phone: [phone] Albumin 3.4 g/dL Invalid Interpretation Code 3.4-5.0 [employer] Work Phone: [phone] Alkaline phosphatase (ALP) 64 U/L Invalid Interpretation Code 45-117 [employer] Work Phone: [phone] Aspartate aminotransferase (AST) 29 U/L Invalid Interpretation Code 15-37 [employer] Work Phone: [phone] Bilirubin (direct) 0.10 mg/dL Invalid Interpretation Code 0.00-0.30 [employer] Work Phone: [phone] Bilirubin (total) 0.40 mg/dL Invalid Interpretation Code 0.20-1.00 [employer] Work Phone: [phone] Globulin 3.9 g/dL Invalid Interpretation Code 2.2-4.2 [employer] Work Phone: [phone] Protein 7.3 g/dL Invalid Interpretation Code 6.4-8.2 [employer] Work Phone: [phone] Clinical Lists Update: Prelo c2 tactical analysis technician 02-06-2017 Left ventricular Ejection fraction 50-55 Invalid Interpretation Code [employer] Work Phone: [phone] Lab Report: Basic Metabolic Profile (BMP)on 08-12-2016 Anion gap 5 mmol/L Invalid Interpretation Code 5-15 [employer] Work Phone: [phone] BUN/Creatinine Ratio 13.2 RATIO Invalid Interpretation Code 10-20 [employer] Work Phone: [phone] Calcium 8.8 mg/dL Invalid Interpretation Code 8.5-10.1 [employer] Work Phone: [phone] Chloride 100 mmol/L Invalid Interpretation Code 98-107 [employer] Work Phone: [phone] CO2 33.0 mmol/L High 21.0-32.0 [employer] Work Phone: [phone] Creatinine 1.89 mg/dL High 0.70-1.30 [employer] Work Phone: [phone] eGFR (non-black) 46 mL/min/{1.73_m2} Low >60 [employer] Work Phone: [phone] eGFR (non-black) 38 mL/min/{1.73_m2} Low >60 [employer] Work Phone: [phone] Glucose mass conc 186 mg/dL High 70-110 [employer] Work Phone: [phone] Potassium molar conc 4.7 mmol/L Invalid Interpretation Code 3.5-5.1 [employer] Work Phone: [phone] Sodium 138 mmol/L Invalid Interpretation Code 136-145 [employer] Work Phone: [phone] Urea nitrogen 25 mg/dL High 7-18 [employer] Work Phone: [phone] Lab Report: Lipid Profileon 08-12-2016 Cholesterol 132 mg/dL Invalid Interpretation Code 200 [employer] Work Phone: [phone] HDL Cholesterol 38 mg/dL Low [employer] Work Phone: [phone] LDL Cholesterol 69 mg/dL Invalid Interpretation Code 0-130 [employer] Work Phone: [phone] Triglyceride 126 mg/dL Invalid Interpretation Code [facility] Work Phone: [phone] very low density lipoproteins 25 mg/dL Invalid Interpretation Code 5-40 [employer] Work Phone: [phone] Lab Report: Liver Profileon 08-12-2016 Alanine aminotransferase (ALT) 26 U/L Invalid Interpretation Code 12-78 [employer] Work Phone: [phone] Albumin 3.1 g/dL Low 3.4-5.0 [employer] Work Phone: [phone] Alkaline phosphatase (ALP) 57 U/L Invalid Interpretation Code 45-117 [employer] Work Phone: [phone] Aspartate aminotransferase (AST) 21 U/L Invalid Interpretation Code 15-37 [employer] Work Phone: [phone] Bilirubin (direct) 0.09 mg/dL Invalid Interpretation Code 0.00-0.30 [employer] Work Phone: [phone] Bilirubin (total) 0.50 mg/dL Invalid Interpretation Code 0.20-1.00 [employer] Work Phone: [phone] Globulin 3.8 g/dL High 2.3-3.5 [employer] Work Phone: [phone] Protein 6.9 g/dL Invalid Interpretation Code 6.4-8.2 [employer] Work Phone: [phone] Lab Report: Magnesiumon Magnesium 2.1 mg/dL Invalid Interpretation Code 1.8-2.4 [employer] Work Phone: [phone] Lab Report: T4 Total, Thyrox inon 08-12-2016 Thyroxine (T4) 10.0 ug/dL Invalid Interpretation Code 4.5-12.1 [employer] Work Phone: [phone] Lab Report: Thyroid Stim Hor tamy (TSH)on 08-12-2016 Thyroid stimulating hormone (TSH) 8.88 u[iU]/mL High 0.358-3.74 [employer] Work Phone: [phone] Office Visiton 08-11-2016 Dietary management education, guidance, and counseling (procedure) yes Invalid Interpretation Code [employer] Work Phone: [phone] Documentation of current medications (procedure) Done Invalid Interpretation Code [employer] Phone: [phone] Fall risk assessment No Invalid Interpretation Code [employer] Work Phone: [phone] Smoking cessation education (procedure) yes Invalid Interpretation Code [employer] Phone: [phone] Tobacco use CPHS Current every day smoker Invalid Interpretation Code [employer] Phone: [phone] Office Visiton 07-18-2016 Hemoglobin A1c/Hemoglobin.total mass fraction (Bld) 9.1 % Invalid Interpretation Code [employer] Work Phone: [phone] Replaced Document: Zach Benito CG Observationson 02-11-2016 EKG QRS axis 27 deg Invalid Interpretation Code [employer] Phone: [phone] Interpretation Sinus Rhythm - Diffuse nonspecific T-abnormality. ABNORMAL Invalid Interpretation Code [employer] Phone: [phone] P [place] 30 deg Invalid Interpretation Code [employer] Phone: [phone] NV Interval 174 ms Invalid Interpretation Code [employer] Work Phone: [phone] Pulse (Heart Rate) 68 /min Invalid Interpretation Code [employer] Phone: [phone] QRS Duration 108 ms Invalid Interpretation Code [employer] Phone: [phone] QT Interval new path ms Invalid Interpretation Code [employer] Phone: [phone] QTc [place] 430 ms Invalid Interpretation Code [employer] Phone: [phone] T [place] 1 deg Invalid Interpretation Code [employer] Work Phone: [phone] Clinical Lists Update: Prelo c2 tactical analysis technician 01-21-2016 Erythrocytes (RBC) 4.77 10*6/uL Invalid Interpretation Code [employer] Phone: [phone] Hematocrit (HCT) 44.8 % Invalid Interpretation Code [employer] Work Phone: [phone] Hemoglobin mass conc (Bld) 15.5 g/dL Invalid Interpretation Code [employer] Work Phone: [phone] Platelets 142 10*3/mm3 Low [employer] Work Phone: [phone] WBC (Leukocytes) 6.5 10*3/uL Invalid Interpretation Code [facility] Work Phone: Clinical Lists Update: Prelo c2 tactical analysis technician 01-20-2016 Thyroxine (T4) free 1.06 ng/dL Invalid Interpretation Code [facility] Work Phone: No Panel Information SARS-CoV-2 & FLU Antigen (Rapid) [facility] Work Phone: Vital Signs Date Time Vital Sign Value Performing Clinician Chalo frazier 08-14-2023 03:07-0400 Body temperature 98.1 [degF] Dr. Nathen Chang Work Phone: [facility] 08-14-2023 03:07-0400 Diastolic blood pressure 55 mm[Hg] Dr. Nathen Chang Work Phone: [facility] 08-14-2023 03:07-0400 Heart rate 76 /min Dr. Nathen Chang Work Phone: [facility] 08-14-2023 03:07-0400 Respiratory rate 19 /min Dr. Nathen Chang Work Phone: [facility] 08-14-2023 03:07-0400 SaO2% (BldA) [Mass fraction] 92 % Dr. Nathen Chang Work Phone: [facility] 08-14-2023 03:07-0400 Systolic blood pressure 125 mm[Hg] Dr. Nathen Chang Work Phone: [facility] 08-14-2023 03:00-0400 Inhaled oxygen flow rate 6 L/min Dr. Nathen Chang Work Phone: [facility] 08-13-2023 23:42-0400 Body height 182.[address] Nathen Chang Work Phone: [facility] 08-13-2023 23:42-0400 Body mass index (BMI) [Ratio] 33.7 kg/m2 Dr. Nathen Chang Work Phone: [facility] 08-13-2023 23:42-0400 Body weight 112.[address] Nathen Chang Work Phone: [facility] 08-12-2023 11:59-0400 Body temperature 97.6 [degF] Dr. Nathen Chang Work Phone: [facility] 08-12-2023 11:59-0400 Diastolic blood pressure 86 mm[Hg] Dr. Nathen Chang Work Phone: [facility] 08-12-2023 11:59-0400 Heart rate 69 /min Dr. Nathen Chang Work Phone: [facility] 08-12-2023 11:59-0400 Respiratory rate 17 /min Dr. Nathen Chang Work Phone: [facility] 08-12-2023 11:59-0400 SaO2% (BldA) [Mass fraction] 95 % Dr. Nathen Chang Work Phone: [facility] 08-12-2023 11:59-0400 Systolic blood pressure 172 mm[Hg] Dr. Nathen Chang Work Phone: [facility] 08-12-2023 07:43-0400 Inhaled oxygen flow rate 2 L/min Dr. Nathen Chang Work Phone: [facility] 08-12-2023 07:29-0400 Body height 182.[address] Nathen Chang Work Phone: [facility] 08-12-2023 07:29-0400 Body mass index (BMI) [Ratio] 34.2 kg/m2 Dr. Nathen Chang Work Phone: [facility] 08-12-2023 07:29-0400 Body weight 114.[address] Nathen Chang Work Phone: [facility] 08-08-2023 13:20-0400 Body temperature 98 [degF] Dr. Nathen Chang Work Phone: [facility] 08-08-2023 13:20-0400 Diastolic blood pressure 70 mm[Hg] Dr. Nathen Chang Work Phone: [facility] 08-08-2023 13:20-0400 Heart rate 70 /min Dr. Nathen Chang Work Phone: [facility] 08-08-2023 13:20-0400 Respiratory rate 18 /min Dr. Nathen Chang Work Phone: [facility] 08-08-2023 13:20-0400 SaO2% (BldA) [Mass fraction] 96 % Dr. Nathen Chang Work Phone: [facility] 08-08-2023 13:20-0400 Systolic blood pressure 140 mm[Hg] Dr. Nathen Chang Work Phone: [facility] 08-08-2023 11:13-0400 Inhaled oxygen flow rate 0 L/min Dr. Nathen Chang Work Phone: [facility] 08-08-2023 00:36-0400 Body mass index (BMI) [Ratio] 33 kg/m2 Dr. Nathen Chang Work Phone: [facility] 08-08-2023 00:36-0400 Body weight 110.[address] Nathen Chang Work Phone: [facility] 08-06-2023 23:57-0400 Body height 182.[address] Nathen Chang Work Phone: [facility] 08-06-2023 22:26-0400 Body temperature 98.2 [degF] Dr. Nathen Chang Work Phone: [facility] 08-06-2023 22:26-0400 Diastolic blood pressure 91 mm[Hg] Dr. Nathen Chang Work Phone: [facility] 08-06-2023 22:26-0400 Heart rate 69 /min Dr. Nathen Chang Work Phone: [facility] 08-06-2023 22:26-0400 Respiratory rate 25 /min Dr. Nathen Chang Work Phone: [facility] 08-06-2023 22:26-0400 SaO2% (BldA) [Mass fraction] 92 % Dr. Nathen Chang Work Phone: [facility] 08-06-2023 22:26-0400 Systolic blood pressure 186 mm[Hg] Dr. Nathen Chang Work Phone: [facility] 08-06-2023 20:27-0400 Body height 182.[address] Nathen Chang Work Phone: [facility] 08-06-2023 20:27-0400 Body mass index (BMI) [Ratio] 33.4 kg/m2 Dr. Nathen Chang Work Phone: [facility] 08-06-2023 20:27-0400 Body weight 111.[address] Nathen Chang Work Phone: [facility] 12-27-2022 19:25-0400 Diastolic blood pressure 67 mm[Hg] Dr. Nathen Chang Work Phone: [facility] 12-27-2022 19:25-0400 Systolic blood pressure 145 mm[Hg] Dr. Nathen Chang Work Phone: [facility] 12-27-2022 19:04-0400 Body temperature 99.8 [degF] Dr. Nathen Chang Work Phone: [facility] 12-27-2022 19:04-0400 Heart rate 85 /min Dr. Nathen Chang Work Phone: [facility] 12-27-2022 19:04-0400 Respiratory rate 21 /min Dr. Nathen Chang Work Phone: [facility] 12-27-2022 19:04-0400 SaO2% (BldA) [Mass fraction] 94 % Dr. Nathen Chang Work Phone: [facility] 12-27-2022 16:52-0400 Body height 182.[address] Nathen Chang Work Phone: [facility] 12-27-2022 16:52-0400 Body mass index (BMI) [Ratio] 31.8 kg/m2 Dr. Nathen Chang Work Phone: [facility] 12-27-2022 16:52-0400 Body weight 106.[address] Nathen Chang Work Phone: [facility] 07-20-2022 05:59-0400 Body temperature 97.6 [degF] Dr. Nathen Chang Work Phone: [facility] 07-20-2022 05:59-0400 Diastolic blood pressure 76 mm[Hg] Dr. Nathen Chang Work Phone: [facility] 07-20-2022 05:59-0400 Heart rate 65 /min Dr. Nathen Chang Work Phone: [facility] 07-20-2022 05:59-0400 Respiratory rate 16 /min Dr. Nathen Chang Work Phone: [facility] 07-20-2022 05:59-0400 SaO2% (BldA) [Mass fraction] 93 % Dr. Nathen Chang Work Phone: [facility] 07-20-2022 05:59-0400 Systolic blood pressure 156 mm[Hg] Dr. Nathen Chang Work Phone: [facility] 07-20-2022 01:02-0400 Body height 182.[address] Nathen Chang Work Phone: [facility] 07-20-2022 01:02-0400 Body mass index (BMI) [Ratio] 31.4 kg/m2 Dr. Nathen Chang Work Phone: [facility] 07-20-2022 01:02-0400 Body weight 105.[address] Nathen Chang Work Phone: [facility] 02-03-2022 15:03-0400 Body temperature 97.2 [degF] Dr. Nathen Chang Work Phone: [facility] Work Phone: 02-03-2022 15:03-0400 Diastolic blood pressure 73 mm[Hg] Dr. Nathen Chang Work Phone: [facility] Work Phone: 02-03-2022 15:03-0400 Heart rate 65 /min Dr. Nathen Chang Work Phone: [facility] Work Phone: 02-03-2022 15:03-0400 Respiratory rate 18 /min Dr. Nathen Chang Work Phone: [facility] Work Phone: 02-03-2022 15:03-0400 SaO2% (BldA) [Mass fraction] 92 % Dr. Nathen Chang Work Phone: [facility] Work Phone: 02-03-2022 15:03-0400 Systolic blood pressure 153 mm[Hg] Dr. Nathen Chang Work Phone: [facility] Work Phone: 02-03-2022 03:48-0400 Body mass index (BMI) [Ratio] 24 kg/m2 Dr. Nathen Chang Work Phone: [facility] Work Phone: 02-02-2022 23:55-0400 Body height 182.[address] Nathen Chang Work Phone: [facility] Work Phone: 02-02-2022 23:55-0400 Body weight 80.[address] Nathen Chang Work Phone: [facility] Work Phone: 11-07-2021 01:13-0400 Diastolic blood pressure 72 mm[Hg] Dr. Nathen Chang Work Phone: [facility] Work Phone: 11-07-2021 01:13-0400 Heart rate 74 /min Dr. Nathen Cahng Work Phone: [facility] Work Phone: 11-07-2021 01:13-0400 Respiratory rate 16 /min Dr. Nathen Chang Work Phone: [facility] Work Phone: 11-07-2021 01:13-0400 SaO2% (BldA) [Mass fraction] 95 % Dr. Nathen Chang Work Phone: [facility] Work Phone: 11-07-2021 01:13-0400 Systolic blood pressure 148 mm[Hg] Dr. Nathen Chang Work Phone: [facility] Work Phone: 11-06-2021 22:49-0400 Body height 182.[address] Nathen Chang Work Phone: [facility] Work Phone: 11-06-2021 22:49-0400 Body mass index (BMI) [Ratio] 32.8 kg/m2 Dr. Nathen Chang Work Phone: [facility] Work Phone: 11-06-2021 22:49-0400 Body temperature 97.2 [degF] Dr. Nathen Chang Work Phone: [facility] Work Phone: 11-06-2021 22:49-0400 Body weight 109.[address] Nathen Chang Work Phone: [facility] Work Phone: 10-22-2021 23:02-0400 Diastolic blood pressure 71 mm[Hg] Dr. Nathen Chang Work Phone: [facility] Work Phone: 10-22-2021 23:02-0400 Heart rate 78 /min Dr. Nathen Chang Work Phone: [facility] Work Phone: 10-22-2021 23:02-0400 Respiratory rate 16 /min Dr. Nathen Chang Work Phone: [facility] Work Phone: 10-22-2021 23:02-0400 SaO2% (BldA) [Mass fraction] 94 % Dr. Nathen Chang Work Phone: [facility] Work Phone: 10-22-2021 23:02-0400 Systolic blood pressure 127 mm[Hg] Dr. Nathen Chang Work Phone: [facility] Work Phone: 10-22-2021 18:25-0400 Body height 182.[address] Nathen Chang Work Phone: [facility] Work Phone: 10-22-2021 18:25-0400 Body mass index (BMI) [Ratio] 31.2 kg/m2 Dr. Nathen Chang Work Phone: [facility] Work Phone: 10-22-2021 18:25-0400 Body temperature 97.9 [degF] Dr. Nathen Chang Work Phone: [facility] Work Phone: 10-22-2021 18:25-0400 Body weight 104.[address] Nathen Chang Work Phone: [facility] Work Phone: 08-11-2016 12:34-0400 BMI (Body Mass Index) 35.53 kg/m2 Oralia Wells RN [facility] Work Phone: 08-11-2016 12:34-0400 BP Diastolic 60 mm[Hg] Oralia Wells RN [facility] Work Phone: 08-11-2016 12:34-0400 BP Systolic 118 mm[Hg] Oralia Wells RN [facility] Work Phone: 08-11-2016 12:34-0400 Height 182.88 cm Oralia Wells RN [facility] Work Phone: 08-11-2016 12:34-0400 Pulse (Heart Rate) 70 /min Oralia Wells RN [facility] Work Phone: 08-11-2016 12:34-0400 Respiratory Rate 18 /min [facility] Work Phone: 08-11-2016 12:34-0400 Weight 118.84 kg Oralia Wells RN [facility] Work Phone: 02-11-2016 09:03-0500 BSA (Body Surface Area) 2.35 m2 Oralia Wells RN [facility] Work Phone: Encounters Encounter Date Encounter Type Care Provider Facility Start: 09-12-2024 End: 09-12-[address] Nathen Chang MD Work Phone: [facility] Work Phone: Start: 09-12-2024 End: 09-12-[address] [facility] Start: 09-12-2024 End: 09-12-2024 ambulatory Nathenольга Chang Facility:[facility] Start: 09-09-2024 End: 09-09-[address] Nathen Chang MD Work Phone: [facility] Work Phone: Start: 09-09-2024 End: 09-09-[address] Nathen Chang MD -[facility] Start: 09-09-2024 End: 09-09-2024 ambulatory Nathen Chang Facility:[facility] Start: 08-30-2024 End: 08-30-[address] Nathen Chang MD Work Phone: [facility] Work Phone: Start: 08-30-2024 End: 08-30-[address] Nathen Chang MD -[facility] Start: 08-30-2024 End: 08-30-2024 ambulatory Nathenольга Chang Facility:[facility] Start: 08-05-2024 End: 08-05-[address] Nathen Chang MD Work Phone: [facility] Work Phone: Start: 08-05-2024 End: 08-05-2024 Patient encounter procedure Parvez PARRA -[facility] [place] Work Phone: Start: 08-05-2024 End: 08-05-2024 ambulatory [facility] Facility:[facility] Start: 07-05-2024 End: 07-05-[address] Nathen Chang MD Work Phone: [facility] Work Phone: Start: 07-05-2024 End: 07-05-[address] Nathen Chang MD -Laboratory, [place] Work Phone: Start: 07-05-2024 End: 07-05-2024 ambulatory [facility] Facility:[facility] Start: 06-13-2024 End: 06-13-[address] Nathen Chang MD Work Phone: [facility] Work Phone: Start: 06-13-2024 End: 06-13-[address] Nathen Chang MD -Laboratory, [facility] Start: 06-13-2024 End: 06-13-2024 ambulatory Nathen Chang Facility:[facility] Start: 06-08-2024 End: 06-08-[address] Nathen Chang MD Work Phone: [facility] Work Phone: Start: 06-08-2024 End: 06-08-[address] Nathen Chang MD -Laboratory, [facility] Start: 06-08-2024 End: 06-08-2024 ambulatory Nathen Chang Facility:[facility] Start: 06-06-2024 End: 06-06-[address] Nathen Chang MD Work Phone: [facility] Work Phone: Start: 06-06-2024 End: 06-06-[address] Nathen Chang MD -Laboratory Work Phone: Start: 06-06-2024 End: 06-06-2024 ambulatory Nathenольга Chang Facility:[facility] Start: 05-06-2024 End: 05-06-2024 ambulatory Nathen Chang Facility:[facility] Start: 05-06-2024 End: 05-06-[address] Chano Simms MD -[facility] Work Phone: Start: 02-16-2024 End: 02-16-2024 ambulatory Nathen Chang Facility:[facility] Start: 02-05-2024 End: 02-05-2024 ambulatory Nathen Chang Facility:[facility] Start: 01-16-2024 End: 01-16-2024 ambulatory Nathen Chang Facility:[facility] Start: 11-06-2023 End: 11-06-2023 ambulatory Nathen Chang Facility:[facility] Start: 10-15-2023 End: 10-15-2023 ambulatory Nathen Chang Facility:[facility] Start: 10-06-2023 End: 10-06-2023 ambulatory Nathen Chang Facility:[facility] Start: 08-14-2023 Evaluation and management of inpatient Dr. Nathen Chang Work Phone: [facility] Work Phone: Start: 08-12-2023 End: 08-12-2023 Emergency department patient visit Dr. Nathen Chang Work Phone: [facility]Emergency [facility] Work Phone: Start: 08-08-2023 End: 08-08-[address] Nathen Chang Work Phone: [facility] Work Phone: Start: 08-08-2023 Non-patient / Non-visit Dr. Rusty Chang Work Phone: [facility] Work Phone: Start: 08-07-2023 Non-patient / Non-visit Dr. Rusty Chang Work Phone: [facility] Work Phone: Start: 08-06-2023 End: 08-08-2023 Evaluation and management of inpatient Dr. Nathen Chang Work Phone: [facility] Work Phone: Start: 08-06-2023 End: 08-08-[address] Nathen Chang Work Phone: [facility] Work Phone: Start: 05-29-2023 End: 05-29-[address] Nathen Chang Work Phone: [facility] Work Phone: Start: 05-29-2023 End: 05-29-[address] Nathen Chang Work Phone: [facility] Start: 05-08-2023 End: 05-08-[address] Nathen Chang Work Phone: [facility] Work Phone: Start: 04-08-2023 End: 04-08-[address] Nathen Chang Work Phone: [facility] Work Phone: Start: 02-06-2023 End: 02-06-[address] Nathen Chang Work Phone: [facility] Work Phone: Start: 12-27-2022 Evaluation and management of inpatient [facility] Work Phone: Start: 12-27-2022 Non-patient / Non-visit Dr. Rusty Chang Work Phone: [facility] Work Phone: Start: 10-27-2022 End: 10-27-[address] Nathen Chang Work Phone: [facility] Work Phone: Start: 10-27-2022 End: 10-27-[address] Nathen Chang Work Phone: [facility] Start: 10-23-2022 Non-patient / Non-visit Dr. Rusty Chang Work Phone: [facility] Work Phone: Start: 10-22-2022 Non-patient / Non-visit Dr. Rusty Chang Work Phone: [facility] Start: 10-21-2022 End: 10-21-[address] Nathen Chang Work Phone: [facility] Work Phone: Start: 10-21-2022 End: 10-21-[address] [facility]: Start: 10-05-2022 End: 10-05-[address] Nathen Chang Work Phone: [facility] Work Phone: Start: 08-02-2022 End: 08-02-[address] Nathen Chang Work Phone: [facility] Start: 08-01-2022 End: 08-01-[address] Nathen Chang Work Phone: [facility] Work Phone: Start: 08-01-2022 End: 08-01-[address] Nathen Chang Work Phone: [facility] Start: 07-20-2022 End: 07-20-2022 Emergency department patient visit Dr. Nathen Chang Work Phone: [facility] Start: 07-08-2022 Non-patient / Non-visit Dr. Rusty Chang Work Phone: [facility] Start: 07-08-2022 End: 07-08-[address] Nathen Chang Work Phone: [facility] Work Phone: Start: 07-08-2022 End: 07-08-[address] [facility] Start: 05-23-2022 End: 05-23-[address] Nathen Chang Work Phone: [facility] Start: 04-29-2022 End: 04-29-[address] Nathen Chang Work Phone: [facility] Start: 02-24-2022 Non-patient / Non-visit Dr. Rusty Chang Work Phone: [facility] Start: 02-24-2022 End: 02-24-[address] Nathen Chang Work Phone: [facility] Work Phone: Start: 02-24-2022 End: 02-24-[address] [facility] Start: 02-14-2022 End: 02-14-[address] Nathen Chang Work Phone: [facility] Start: 02-03-2022 Non-patient / Non-visit Dr. Rusty Chang Work Phone: [facility] Start: 02-03-2022 Non-patient / Non-visit Dr. Rusty Chang Work Phone: [facility] Start: 02-02-2022 Non-patient / Non-visit Dr. Rusty Chang Work Phone: [facility] Start: 02-02-2022 End: 02-03-2022 Evaluation and management of inpatient [facility]. Nathen [facility] Start: 02-02-2022 End: 02-03-[address] Nathen Chang Work Phone: [facility] Work Phone: Start: 11-06-2021 End: 11-07-2021 Emergency department patient visit Dr. Nathen Chang Work Phone: [facility] Start: 11-06-2021 End: 11-06-[address] Nathen Chang Work Phone: [facility] Start: 10-25-2021 End: 10-25-[address] Nathen Chang Work Phone: [facility] Start: 10-22-2021 End: 10-22-2021 Emergency department patient visit [facility]hen [facility] Start: 09-05-2021 End: 09-05-[address] Nathen Chang Work Phone: [facility] Start: 07-31-2021 End: 07-31-[address] Nathen Chang Work Phone: [facility] Start: 06-03-2018 Evaluation and management of inpatient [facility] Procedures Date Procedure Procedure Detail Performing Clinician Start: 08-05-2024 X-ray of chest, PA a nd lateral views Dr. Nathen Chang MD Work Phone: Start: 06-08-[address] Nathen Chang MD Work Phone: Comment on above: ACTH reference inter miguel angel for samples collected between 7 and10 AM.Performed at: [address] [id number] Director: Mati Culp PhD, Phone: [phone] Start: 06-06-2024 Urine microalbumin/c reatinine ratio measurement Dr. Nathen Chang MD Work Phone: Start: 06-06-[address] Nathen Chang MD Work Phone: Comment on above: ACTH reference inter miguel angel for samples collected between 7 and10 AM.Performed at: [address] [id number] Director: Mati Culp PhD, Phone: [phone] Start: 08-14-2023 CT of chest without contrast Dr. Nathen Chang Work Phone: Start: 08-12-2023 SARS-CoV-2, Influenz a & RSV (PCR) Dr. Nathen Chang Work Phone: Start: 08-12-2023 Plain chest X-ray Dr. Jigna Chang Work Phone: Start: 08-07-2023 Plain chest X-ray Dr. Jigna Chang Work Phone: Start: 08-06-2023 Plain chest X-ray Dr. Jigna Chang Work Phone: Start: 08-06-[address] Nathen Chang Work Phone: Start: 08-06-2023 SARS-CoV-2, Influenz a & RSV (PCR) Dr. Nathen Chang Work Phone: Start: 08-06-2023 Streptococcus pneumo niae Antigen (M Dr. Nathen Chang Work Phone: Start: 12-27-2022 Plain chest X-ray Dr. Jigna Chang Work Phone: Start: 12-27-2022 Coronavirus COVID-[address] Nathen Chang Work Phone: Start: 10-21-2022 Cardiovascular stres s test using pharmacologic stress agent Dr. Nathen Chang Work Phone: Start: 07-20-2022 CT of head without contrast Dr. Nathen Chang Work Phone: Start: 02-03-2022 CT of head without contrast Dr. Nathen Chang Work Phone: Start: 02-02-2022 CT angiography of he ad and neck Dr. Nathen Chang Work Phone: Start: 02-02-2022 CT of head without contrast Dr. Nathen Chang Work Phone: Start: 02-02-2022 Plain chest X-ray Dr. Jigna Chang Work Phone: Start: 02-11-2017 End: 02-11-2017 *Hepatic Function Panel Christiano Molina MD Work Phone: Start: 12-09-2016 End: 02-04-2017 Follow Up Appt 3 months Christiano Molina MD Work Phone: Start: 12-09-2016 End: 12-12-2016 Interrogation eval remote 90 d 1/2/cash application representative ld dfb Christiano Molina MD Work Phone: Start: 12-09-2016 End: 02-04-2017 Pacer Clinic Christiano Molina MD Work Phone: Start: 08-29-2016 End: 02-04-2017 Follow Up Appt 3 months Elmo Maloney MD Start: 08-29-2016 End: 08-29-2016 Interrogation eval remote 90 d 1/2/cash application representative ld dfb Elmo Maloney MD Start: 08-29-2016 [...] 08-04-2016 Follow Up Appt 3 months Stefany West PA-C Work Phone: Start: 05-21-2016 End: 08-04-2016 [...] 6 months Christiano Molina MD Work Phone: SARS-CoV-2 & FLU Ant igen (Rapid) Dr. Nathen Chang Work Phone: Plan of Treatment Date Care Activity Detail Author Start: 08-15-2023 Blood chemistry [facility] Start: 08-14-2023 Bacteria identified in Blood by Culture Blood Culture [facility] Start: 08-14-2023 SARS-CoV-2, Influenza & RSV (PCR) SARS-CoV-2, Influenza & RSV (PCR) [facility] Start: 08-14-2023 Blood chemistry [facility] Start: 08-14-2023 Verification routine [facility] Start: 08-14-2023 Admission procedure [facility] Start: 08-14-2023 End: 08-14-2023 Blood culture [facility] Start: 08-14-2023 Hospital admission, emergency, from emergency room, medical nature [facility] Start: 08-14-2023 [facility] Start: 08-13-2023 Blood chemistry [facility] Start: 08-12-2023 [facility] Start: 08-12-2023 [facility] Start: 08-12-2023 Blood chemistry [facility] Start: 08-11-2023 Blood chemistry [facility] Start: 08-10-2023 Blood chemistry [facility] Start: 08-09-2023 Blood chemistry [facility] Start: 08-08-2023 Patient discharge [facility] Start: 08-07-2023 Respiratory secretion precautions [facility] Start: 08-06-2023 End: 08-07-2023 [facility] Start: 08-06-2023 Following clinical pathway protocol [facility] Start: 08-06-2023 Assessment of risk of venous thromboembolism [facility] Start: 08-06-2023 Bacteria identified in Sputum by Culture [facility] Start: 08-06-2023 Care regimes management [facility] Start: 08-06-2023 Fall prevention [facility] Start: 08-06-2023 Insertion of catheter into peripheral vein [facility] Start: 08-06-2023 Introduction of urinary catheter [facility] Start: 08-06-2023 Measuring intake and output [facility] Start: 08-06-2023 Notification of physician [facility] Start: 08-06-2023 Oxygen therapy [facility] Start: 08-06-2023 Providing care according to standard [facility] Start: 08-06-2023 Provision of activity privileges [facility] Start: 08-06-2023 Referral to occupational therapist [facility] Start: 08-06-2023 Referral to service [facility] Start: 08-06-2023 Legionella pneumophila Ag [Presence] in Urine [facility] Start: 08-06-2023 Streptococcus pneumoniae antigen assay [facility] Start: 08-06-2023 Verification routine [facility] Start: 08-06-2023 Admission procedure [facility] Start: 08-06-2023 Hospital admission, emergency, from emergency room, medical nature [facility] Start: 08-06-2023 Inhalation therapy procedure [facility] Start: 12-27-2022 Verification routine [facility] Start: 12-27-2022 Admission procedure [facility] Start: 12-27-2022 [facility] Start: 12-27-2022 End: 12-27-2022 [facility] Start: 02-03-2022 Speech therapy assessment [facility] Work Phone: Start: 02-03-2022 Patient discharge [facility] Work Phone: Start: 02-03-2022 End: 02-03-2022 Following clinical pathway protocol [facility] Work Phone: Start: 02-02-2022 Ambulation without limitation [facility] Work Phone: Start: 02-02-2022 Assessment of risk of venous thromboembolism [facility] Work Phone: Start: 02-02-2022 Cardiac monitoring [facility] Work Phone: Start: 02-02-2022 Care regimes management [facility] Work Phone: Start: 02-02-2022 Catheterization of vein [facility] Work Phone: Start: 02-02-2022 Continuous pulse oximetry [facility] Work Phone: Start: 02-02-2022 Elevation of head of bed [facility] Work Phone: Start: 02-02-2022 Exercises [facility] Work Phone: Start: 02-02-2022 Implementation of planned interventions [facility] Work Phone: Start: 02-02-2022 Insertion of catheter into peripheral vein [facility] Work Phone: Start: 02-02-2022 Measuring intake and output [facility] Work Phone: Start: 02-02-2022 Notification of physician [facility] Work Phone: Start: 02-02-2022 Oxygen therapy [facility] Work Phone: Start: 02-02-2022 Providing care according to standard [facility] Work Phone: Start: 02-02-2022 Referral to occupational therapist [facility] Work Phone: Start: 02-02-2022 Referral to service [facility] Work Phone: Start: 02-02-2022 Tobacco use cessation education [facility] Work Phone: Start: 02-02-2022 [facility] Work Phone: Start: 02-02-2022 Admission procedure [facility] Work Phone: Start: 03-17-2017 End: 03-17-2017 Appointment Appointment [facility] Work Phone: Start: 02-12-2017 End: 02-12-2017 Appointment Appointment [facility] Work Phone: Start: 02-11-2017 End: 02-11-2017 *Hepatic Function Panel *Hepatic Function Panel [facility] Work Phone: Start: 02-11-2017 End: 08-23-2016 Lipid panel [AGGREGATE] *Lipid Profile CC PCP [facility] Work Phone: Start: 12-09-2016 End: 02-04-2017 Follow Up Appt 3 months Follow Up Appt 3 months [facility] Work Phone: Start: 12-09-2016 End: 02-04-2017 Pacer Clinic [facility] Work Phone: Start: 08-29-2016 End: 02-04-2017 Follow Up Appt 3 months Follow Up Appt 3 months [facility] Work Phone: Start: 08-29-2016 End: 02-04-2017 Pacer Clinic [facility] Clinic [facility] Work Phone: Start: 08-11-2016 End: 08-12-2016 *BMP *BMP [facility] Work Phone: Start: 08-11-2016 End: 08-12-2016 *Hepatic Function Panel *Hepatic Function Panel [facility] Work Phone: Start: 08-11-2016 End: 02-04-2017 DJN DJN [facility] Work Phone: Start: 08-11-2016 End: 02-04-2017 Follow Up Appt 6 months Follow Up Appt 6 months [facility] Work Phone: Start: 08-11-2016 End: 08-12-2016 Lipid panel [AGGREGATE] *Lipid Profile CC PCP [facility] Work Phone: Start: 08-11-2016 End: 08-12-2016 Magnesium *Magnesium [facility] Work Phone: Start: 08-11-2016 End: 08-11-2016 Pulmonary Function Test - complete Pulmonary Function Test - complete [facility] Work Phone: Start: 08-11-2016 End: 08-12-2016 Thyroid stimulating hormone (TSH) *TSH [facility] Work Phone: Start: 08-11-2016 End: 08-12-2016 Thyroxine (T4) *T4 (Total) [facility] Work Phone: Start: 05-21-2016 End: 08-04-2016 Follow Up Appt 3 months Follow Up Appt 3 months [facility] Work Phone: Start: 05-21-2016 End: 08-04-2016 Pacer Clinic Pacer Clinic [facility] Work Phone: Start: 03-24-2016 End: 08-12-2016 *Hepatic Function Panel *Hepatic Function Panel [facility] Work Phone: Start: 03-24-2016 End: 08-12-2016 Lipid panel [AGGREGATE] *Lipid Profile CC PCP [facility] Work Phone: Start: 03-24-2016 End: 08-12-2016 Thyroid stimulating hormone (TSH) *TSH [facility] Work Phone: Start: 03-24-2016 End: 08-12-2016 Thyroxine (T4) *T4 (Total) [facility] Work Phone: Start: 02-11-2016 End: 02-11-2016 DJN DJN [facility] Work Phone: Start: 02-11-2016 End: 02-11-2016 Ecg routine ecg w/least 12 lds w/i&r EKG (In office) [facility] Work Phone: Start: 02-11-2016 End: 02-11-2016 Follow Up Appt 6 months Follow Up Appt 6 months [facility] Work Phone: Anion gap measurement [facility] Anion gap measurement [facility] Anion gap measurement [facility] Anion gap measurement [facility] Anion gap measurement [facility] Anion gap measurement [facility] Anion gap measurement [facility] Blood culture [facility] BUN/Creatinine ratio [facility] BUN/Creatinine ratio [facility] BUN/Creatinine ratio [facility] BUN/Creatinine ratio [facility] BUN/Creatinine ratio [facility] BUN/Creatinine ratio [facility] BUN/Creatinine ratio [facility] Calcium [Mass/volume ] in Serum or Plasma [facility] Calcium [Mass/volume ] in Serum or Plasma [facility] Calcium [Mass/volume ] in Serum or Plasma [facility] Calcium [Mass/volume ] in Serum or Plasma [facility] Calcium [Mass/volume ] in Serum or Plasma [facility] Calcium [Mass/volume ] in Serum or Plasma [facility] Calcium [Mass/volume ] in Serum or Plasma [facility] Carbon dioxide, tota l [Moles/volume] in Serum or Plasma [facility] Carbon dioxide, tota l [Moles/volume] in Serum or Plasma [facility] Carbon dioxide, tota l [Moles/volume] in Serum or Plasma [facility] Carbon dioxide, tota l [Moles/volume] in Serum or Plasma [facility] Carbon dioxide, tota l [Moles/volume] in Serum or Plasma [facility] Carbon dioxide, tota l [Moles/volume] in Serum or Plasma [facility] Carbon dioxide, tota l [Moles/volume] in Serum or Plasma [facility] Chloride [Moles/volu me] in Serum or Plasma [facility] Chloride [Moles/volu me] in Serum or Plasma [facility] Chloride [Moles/volu me] in Serum or Plasma [facility] Chloride [Moles/volu me] in Serum or Plasma [facility] Chloride [Moles/volu me] in Serum or Plasma [facility] Chloride [Moles/volu me] in Serum or Plasma [facility] Chloride [Moles/volu me] in Serum or Plasma [facility] Creatinine [Moles/vo lume] in Serum or Plasma [facility] Creatinine [Moles/vo lume] in Serum or Plasma [facility] Creatinine [Moles/vo lume] in Serum or Plasma [facility] Creatinine [Moles/vo lume] in Serum or Plasma [facility] Creatinine [Moles/vo lume] in Serum or Plasma [facility] Creatinine [Moles/vo lume] in Serum or Plasma [facility] Creatinine [Moles/vo lume] in Serum or Plasma [facility] Erythrocyte mean corpuscular volume determination [facility] Erythrocyte mean corpuscular volume determination [facility] Erythrocyte mean corpuscular volume determination [facility] Erythrocyte mean corpuscular volume determination [facility] Erythrocyte mean corpuscular volume determination [facility] Erythrocyte mean corpuscular volume determination [facility] Erythrocyte mean corpuscular volume determination [facility] Glucose [Mass/volume ] in Serum or Plasma [facility] Glucose [Mass/volume ] in Serum or Plasma [facility] Glucose [Mass/volume ] in Serum or Plasma [facility] Glucose [Mass/volume ] in Serum or Plasma [facility] Glucose [Mass/volume ] in Serum or Plasma [facility] Glucose [Mass/volume ] in Serum or Plasma [facility] Glucose [Mass/volume ] in Serum or Plasma [facility] Hematocrit [Volume Fraction] of Blood [facility] Hematocrit [Volume Fraction] of Blood [facility] Hematocrit [Volume Fraction] of Blood [facility] Hematocrit [Volume Fraction] of Blood [facility] Hematocrit [Volume Fraction] of Blood [facility] Hematocrit [Volume Fraction] of Blood [facility] Hematocrit [Volume Fraction] of Blood [facility] Hemoglobin [Mass/vol ume] in Blood [facility] Hemoglobin [Mass/vol ume] in Blood [facility] Hemoglobin [Mass/vol ume] in Blood [facility] Hemoglobin [Mass/vol ume] in Blood [facility] Hemoglobin [Mass/vol ume] in Blood [facility] Hemoglobin [Mass/vol ume] in Blood [facility] Hemoglobin [Mass/vol ume] in Blood [facility] Leukocytes [#/volume ] in Blood [facility] Leukocytes [#/volume ] in Blood [facility] Leukocytes [#/volume ] in Blood [facility] Leukocytes [#/volume ] in Blood [facility] Leukocytes [#/volume ] in Blood [facility] Leukocytes [#/volume ] in Blood [facility] Leukocytes [#/volume ] in Blood [facility] Mean corpuscular hem oglobin concentration determination [facility] Mean corpuscular hem oglobin concentration determination [facility] Mean corpuscular hem oglobin concentration determination [facility] Mean corpuscular hem oglobin concentration determination [facility] Mean corpuscular hem oglobin concentration determination [facility] Mean corpuscular hem oglobin concentration determination [facility] Mean corpuscular hem oglobin concentration determination [facility] Mean corpuscular hem oglobin determination [facility] Mean corpuscular hem oglobin determination [facility] Mean corpuscular hem oglobin determination [facility] Mean corpuscular hem oglobin determination [facility] Mean corpuscular hem oglobin determination [facility] Mean corpuscular hem oglobin determination [facility] Mean corpuscular hem oglobin determination [facility] Measurement of renal function [facility] Measurement of renal function [facility] Measurement of renal function [facility] Measurement of renal function [facility] Measurement of renal function [facility] Measurement of renal function [facility] Measurement of renal function [facility] Neutrophil count [facility] Neutrophil count [facility] Neutrophil count [facility] Neutrophil count [facility] Neutrophil count [facility] Neutrophil count [facility] Neutrophil count [facility] Neutrophil percent differential count [facility] Neutrophil percent differential count [facility] Neutrophil percent differential count [facility] Neutrophil percent differential count [facility] Neutrophil percent differential count [facility] Neutrophil percent differential count [facility] Neutrophil percent differential count [facility] Patient Education [facility] Work Phone: Patient referral [facility] Work Phone: Platelets [#/volume] in Blood [facility] Platelets [#/volume] in Blood [facility] Platelets [#/volume] in Blood [facility] Platelets [#/volume] in Blood [facility] Platelets [#/volume] in Blood [facility] Platelets [#/volume] in Blood [facility] Platelets [#/volume] in Blood [facility] Potassium [Moles/vol ume] in Serum or Plasma [facility] Potassium [Moles/vol ume] in Serum or Plasma [facility] Potassium [Moles/vol ume] in Serum or Plasma [facility] Potassium [Moles/vol ume] in Serum or Plasma [facility] Potassium [Moles/vol ume] in Serum or Plasma [facility] Potassium [Moles/vol ume] in Serum or Plasma [facility] Potassium [Moles/vol ume] in Serum or Plasma [facility] Red blood cell count [facility] Red blood cell count [facility] Red blood cell count [facility] Red blood cell count [facility] Red blood cell count [facility] Red blood cell count [facility] Red blood cell count [facility] Red cell distributio n width determination [facility] Red cell distributio n width determination [facility] Red cell distributio n width determination [facility] Red cell distributio n width determination [facility] Red cell distributio n width determination [facility] Red cell distributio n width determination [facility] Red cell distributio n width determination [facility] Respiratory pathogen s DNA and RNA panel - Respiratory specimen by LEANNE with probe detection [facility] Sodium [Moles/volume ] in Serum or Plasma [facility] Sodium [Moles/volume ] in Serum or Plasma [facility] Sodium [Moles/volume ] in Serum or Plasma [facility] Sodium [Moles/volume ] in Serum or Plasma [facility] Sodium [Moles/volume ] in Serum or Plasma [facility] Sodium [Moles/volume ] in Serum or Plasma [facility] Sodium [Moles/volume ] in Serum or Plasma [facility] Urea nitrogen [Mass/ volume] in Serum or Plasma [facility] Urea nitrogen [Mass/ volume] in Serum or Plasma [facility] Urea nitrogen [Mass/ volume] in Serum or Plasma [facility] Urea nitrogen [Mass/ volume] in Serum or Plasma [facility] Urea nitrogen [Mass/ volume] in Serum or Plasma [facility] Urea nitrogen [Mass/ volume] in Serum or Plasma [facility] Urea nitrogen [Mass/ volume] in Serum or Plasma [facility] Immunizations Immunization Date Immunization Notes Care Provider Fa [facility] 05-21-2021 influenza, injectabl e, quadrivalent, preservative free Dr. Nathen Chang Work Phone: [facility] 03-08-2021 Covid ([employer] (PTG)) Dr. Nathen choe Work Phone: [facility] 06-18-2020 Covid ([employer]) Dr. Nathen Chang Work Phone: [facility] Payers Date Payer Category Payer Self-pay [id number] 2023 Medicaid [id number] 2013 Medicare [id number] 1945 Unknown [id number] 2.16.8 [id number] Medicare Medicare [id number] Private Health Insurance Unknown [id number] 2.16.8 [id number] Unknown [id number] 2.16.8 [id number] Unknown [id number] 2.16.8 [id number] Unknown [id number] 2.16.8 [id number] Unknown [id number] 2.16.8 [id number] Unknown [id number] 2.16.8 [id number] Unknown [id number] 2.16.8 [id number] Unknown [id number] 2.16.8 [id number] Unknown [id number] 2.16.8 [id number] Unknown [id number] 2.16.8 [id number] Unknown [id number] 2.16.8 [id number] Unknown [id number] 2.16.8 [id number] Unknown [id number] 2.16.8 [id number] Unknown [id number] 2.16.8 [id number] Unknown [id number] 2.16.8 [id number] Social History Date Type Detail Facility Start: 10-22-2021 End: 08-13-2023 Tobacco smoking status NHIS Unknown if ever smoked [facility] Start: 06-03-2018 None [facility] Start: 06-03-2018 Alone [facility] Start: 10-20-2018 Cigarettes [facility] Start: 1945 Sex Assigned At Male [facility] Start: 08-14-2023 [facility] Start: 06-17-2024 End: 07-07-2024 Sex Male (finding) [facility] Medical Equipment Procedure Code Equipment Code Equipment Origin al Text Equipment Identifier Dates [facility] Start: 2019 [facility] Start: [facility] Start: 2019 [facility] Start: 2019 [facility] Start: 2019 [facility] Start: 2019 [facility] Start: [facility] Start: [address] [facility] Start: [address] [facility] Start: [address] [facility] Start: [address] [facility] Start: [address] [facility] Start: [address] [facility] Start: [address] [facility] Start: [address] [facility] Start: [address] [facility] Start: [address] [facility] Start: [address] FDA Start: [address] FDA Start: [address] FDA Start: [address] FDA Start: [address] FDA Start: [address] FDA Start: [address] FDA Start: [address] FDA Start: [address] FDA Start: [address] FDA Start: [address] FDA Start: [address] FDA Start: [address] FDA Start: [address] FDA Start: [address] FDA Start: [address] FDA Start: [address] FDA Start: [address] FDA Start: [address] FDA Start: [address] [facility] Start: [address] FDA Start: [address] FDA Start: [address] FDA Start: [address] FDA Start: [address] FDA Start: [address] FDA Start: [address] FDA Start: [address] FDA Start: [address] FDA Start: [address] FDA Start: [address] FDA Start: [address] FDA Start: [address] FDA Start: [address] [facility] FDA Start: [address] [facility] [facility] FDA Start: [address] [facility] FDA Start: [address] FDA Start: [address] FDA Start: [address] FDA Start: [address] FDA Start: 2019 [facility] FDA Start: [address] [facility] Start: [address] [facility] FDA Start: [address] FDA Start: [address] FDA Start: 2019 Goals Date Patient Goal Desired Activity /State Functional Status Date Assessment Result Facility 08-08-2023 Functional status Ambulates [facility] Work Phone: 02-03-2022 Functional status [facility] Work Phone: Mental Status Date Assessment Result Facility 08-08-2023 Cognitive function Voice/Name [facility] Work Phone: 02-03-2022 Cognitive function Voice/Name [facility] Work Phone: 11-06-2021 Cognitive function Level Of Cons ciousness Follows Commands;Lethargic [facility] Work Phone: 10-22-2021 Cognitive function Level Of Cons ciousness Awake;Alert;Appropriate;Follow s Commands [facility] Work Phone: Clinical Notes 04-12-2012 to 08-06-2024 Note Date & Type Note Facility 08-06-2024 Radiology Diagnostic study note [facility] Imaging Services [address] [place] [address] Chest PA and Lateral MR#: [id number] Acct: [id number] Name: PARK SOUSA Rep #: [id number] : 1945 M 78 From: Jonathan Miranda MD PCP: Dr. Nathen Chang MD Status: REG CLI Study:Chest PA and Lateral Date of Exam: 08/05/24 Exam# [id number] Ordering Dr: Parvez Biggs WIRELESS SALES EXPERT WIRELESS SALES EXPERT-C PROCEDURE: CHEST PA AND LATERAL 08/05/2024 REASON FOR EXAM: BRONCHITIS TECHNIQUE: Frontal and lateral views of the chest. COMPARISON: 08/12/2023 FINDINGS: The lungs appear clear. Pulmonary vascularity appears within limits. No pleural effusion. The cardiac and mediastinal contours appear within limits. Atherosclerotic change at the aortic arch again noted. lead principal technical architect AICD again noted. The visualized osseous structures appear within limits. RAD/Chest PA and Lateral IMPRESSION: No evidence of acute disease. Reading Location: [facility] CC: Parvez WOO NP-Khang McMorrow; Dr. Nathen Chang MD ~ [employer]: Signed [facility] 08-12-2023 Hospital Discharg e instructions Additional Instructions I think your shortness of breath is secondary to fluid buildup. You will be placed on Lasix 1 pill 20 mg once a day taken between breakfast and lunch every morning. It can make you pee a lot. Do not take it at night because you will be up all night urinating. This should help your shortness of breath. You need to have close follow-up with Dr. Nathen Chang who I spoke with today to make sure that you are doing well this is improving you are not affecting your kidney function. Return if feeling worse. [facility] Work Phone: 08-07-2023 Progress note Note Date/Time August 07, 2023 2:01pm [facility] Medical Records Department [address] [place] [id number] Progress Note 08/07/23 1355 MR#: [id number] Acct: [id number] Name: PARK SOUSA Rep #:[id number] : 1945 77 From: Amanda Wick MD PCP: Dr. Nathen Chang MD Status:ADM CHAIM Location: [place] [id number] Subjective Subjective Patient seen and examined. He still complained of feeling short of breath and complained of generalized malaise. He denied any fever or chills. He admitted to coughing and occasional shortness of breath as well as wheezing.. He denied any nausea or vomiting. Review of systems otherwise negative. Objective Data Objective Data Vital Signs: Vital Signs Temp Pulse Resp BP Pulse Ox O2 Del Method 97.7 F L 85 18 179/88 H 94 Room Air 08/07/23 10:16 08/07/23 10:16 08/07/23 10:16 08/07/23 10:16 08/07/23 10:16 08/07/23 10:16 Oxygen Delivery Method Room Air Weight: 243 lb 13.3 oz Body Mass Index (BMI) 33.0 Intake & Output: Intake and Output for Last 24 Hours 08/05/23 08/06/23 08/07/23 23:59 23:59 23:59 Intake Total 1400 / 1400 1000 / 1000 Output Total 250 / 250 Balance 1400 / 1150 750 / 750 Lab / Micro Data 08/07/23 05:30 08/07/23 05:30 Labs: Laboratory Results - last 24 hr 08/06/23 20:30: WBC 5.5, RBC 4.52 L, Hgb 13.4, Hct 40.5, MCV 89.6, MCH 29.6, MCHC 33.1, RDW Std Deviation 45.4 H, RDW Coeff of Peggy 14.1, Plt Count 125 L, MPV10.8, Immature Gran % (Auto) 0.500, Neut % (Auto) 67.9, Lymph % (Auto) 14.8 L, [place] % (Auto) 13.7 H, Eos % (Auto) 2.6, Baso % (Auto) 0.5, Absolute Neuts (auto)3.7, Absolute Lymphs (auto) 0.81 L, Nucleated RBC % 0, Sodium 137, Potassium 4.3, Chloride 104, Carbon Dioxide 27.0, Anion Gap 6, BUN 27 H, Creatinine 2.28 H, Estim Creat Clear Calc 35.02, Est GFR (MDRD) Af Amer 36 L, Est GFR (MDRD) Non-Af 30 L, BUN/Creatinine Ratio 11.8, Glucose 344 H, Calcium 8.7 08/06/23 20:50: Acetone Level NEGATIVE 08/06/23 23:58: POC Glucose 160 H 08/07/23 05:30: WBC 6.0, RBC 4.44 L, Hgb 12.9 L, Hct 40.2, MCV 90.5, MCH 29.1, MCHC 32.1, RDW Std Deviation 47.4 H, RDW Coeff of Peggy 14.2, Plt Count 110 L, MPV11.3, Immature Gran % (Auto) 0.300, Neut % (Auto) 70.9 H, Lymph % (Auto) 13.3 L,[place] % (Auto) 12.8 H, Eos % (Auto) 2.2, Baso % (Auto) 0.5, Absolute Neuts (auto)4.2, Absolute Lymphs (auto) 0.79 L, Nucleated RBC % 0, Sodium 135 L, Potassium 4.4, Chloride 104, Carbon Dioxide 22.0, Anion Gap 9, BUN 24 H, Creatinine 2.04 H, Estim Creat Clear Calc 38.95, Est GFR (MDRD) Af Amer 41 L, Est GFR (MDRD) Non-Af 34 L, BUN/Creatinine Ratio 11.8, Glucose 296 H, Calcium 8.5, Total Bilirubin 0.70, AST 20, ALT 17, Alkaline Phosphatase 50, Total Protein 5.9 L, Albumin 2.5 L, Globulin 3.4, Albumin/Globulin Ratio 0.7 L 08/07/23 06:11: POC Glucose 297 H 08/07/23 11:15: POC Glucose 351 H Micro: Microbiology 08/06/23 23:40 Mucosa - Nasopharyngeal Respiratory Panel (PCR) - Final Rhinovirus 08/06/23 23:58 Urine, Random Streptococcus pneumoniae Antigen (M - Final 08/06/23 23:58 Urine, Random Legionella Antigen - Final 08/06/23 20:50 Mucosa - Nose SARS-CoV-2, Influenza & RSV (PCR) - Final Radiography Diagnostic Testing: Radiology Impression Chest X-Ray 08/06/23 21:05 IMPRESSION: Mild nonspecific bibasilar interstitial thickening of uncertain chronicity more pronounced on the left. Cannot exclude inflammatory changes. Clinical correlation is recommended as well as comparison with prior studies when available assessed for interval changes Electronically Signed: Guevara Crowder MD at 21:31 EDT , Chest X-Ray 08/07/23 05:55 IMPRESSION: No acute abnormality is seen. Electronically Signed: Juan Ramon Jack MD at 13:21 EDT , Physical Exam Const alert, oriented x3 and no apparent distress HEENT normocephalic and head/scalp atraumatic Mouth: dry mucous membranes Eyes PERRL and EOMs intact bilaterally Neck no lymphadenopathy and supple Lymph Lymphatic: no lymphadenopathy noted and no lymphedema noted Resp Resp Narrative: Moderately diminished breath sounds bibasilarly, no wheezes or crackles. On room air. Cardio regular rate, regular rhythm, S1 normal heart sound, S2 normal heart sound and no murmurs GI normal to inspection, nondistended, normoactive bowel sounds, soft to palpation,non-tender and non-distended Extremity normal capillary refill, no clubbing, cyanosis or edema and no calf tenderness General Extremity: no tenderness to palpation of joints or extremities Skin General Skin Exam: no breakdown Neuro CN's II-XII intact bilaterally and no focal motor deficits Motor Exam: strength 5/5 throughout and general weakness Psych thought process normal and cooperative Appearance: appropriate Assessment & Plan Assessment/Plan (1) Viral syndrome: PLAN: Plan #Hypoxia due to acute viral URTI from rhinovirus infection * Patient now on room air. Still complains of wheezing and coughing. He had family members who have similar symptoms. Chest x-ray showed no evidence of superimposed pneumonia. Breathing treatments bronchodilators. Titrate oxygen to maintain saturation above 90%. * Respiratory panel positive for rhinovirus * Hydrate gently with IV fluids. * #Thrombocytopenia: Platelets at 110 today. Was 125 yesterday. May be due to acute viral infection. Will continue to monitor. #Paroxysmal A-fib: On Eliquis and Coreg. #Type 2 diabetes mellitus: On Lantus. Insulin sliding scale. Accu-Cheks ACHS. #Heart failure preserved ejection fraction: S/p ICD insertion. #History of CAD: Has history of cardiac arrest and is s/p ICD. On Plavix as well as Coreg and statin. #CKD stage III: Has a solitary kidney. Creatinine is 2.04 today, from 2.28 on admission. Baseline is around 1.7. Will monitor. #Hypertension: On Coreg. IV hydralazine as needed #Type 2 diabetes mellitus: On Lantus. Insulin sliding scale. Tactics ACHS. #Hypothyroidism: On Synthroid #Hyperlipidemia: On statin #DVT prophylaxis: on eliquis. Charges/Coding Visit Charges Inpatient E&M: 11536 Subs Hosp L2 08/07/23 1614 <Electronically signed by Amanda Wick MD> Amanda Wick MD Cosigner Signature (if applicable): CC: ~ Signed [facility] Work Phone: 1(447) 325-732005-03-2024 History and physical note Author Gela Salinas [facility] August 06, 2023 11:20pm Note Date/Time August 06, 2023 10:27p m [facility] Medical Records Department [address] [place] [address] H&P Exam - Hospitalist 08/06/232226 MR#: [id number] Acct: [id number] Name: PARK SOUSA Rep #:[id number] : 1945 77 From: Gela Salinas MD PCP: Dr. Nathen Chang MD Status:ADM CHAIM [id number]PI - General General Date of Admission: 08/06/23 Date of Service: 08/06/23 Chief Complaint: Cough, congestion, dyspnea, worsening. HPI Narrative The patient is a 77 y/o M w/ PMHx: Suspected PAF, Obesity, Presumed HFpEF, CAD/Ischemic cardiomyopathy s/p AICD/pacemaker, HTN, HLD, Diabetes mellitus typeII, Hx VF Cardiac arrest, Former tobacco use, CKD stage III unclear subtype withsolitary kidney, Hypothyroidism who presents to the [facility] ED on 08/06/23 with history of cold-like symptoms starting over the last 3 days with mild headache, congestion, rhinorrhea, sore throat, chills, nonproductive cough, increased sneezing with mild dyspnea worse with exertion not improving with his girlfriendhaving similar symptoms although she seems to have improved but on day of presentation he had significant increased weakness and debility having difficulty even getting up prompting EMS call. He has noted that he is been having elevated blood sugars with poor oral intake recently. Workup in the ED included T97.5, heart rate 70, BP 167/76, respiratory rate 32, 93% on room air, CBC with WBC 5.5, hemoglobin 13.4, platelet 125 with lymphopenia, BMP with BUN/lbnttxxauu21/2.28, glucose 344, acetone negative, chest x-ray with nonspecific mild bibasilar interstitial thickening of uncertain chronicity more pronounced on theleft possibly inflammatory changes, rapid SARS COVID/influenza/RSV negative. Inthe ED patient ministered 1 L normal saline as well as albuterol and DuoNeb therapy. 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) Solitary kidney Sustained ventricular tachycardia Ventricular fibrillation Home Medications fexofenadine-pseudoephedrine ER 180 mg-240 mg tablet,ext.release 24 hr 1 tab.sr PO DAILY allergies 01/20/16 [History Last Taken Unknown] levothyroxine 100 mcg capsule 100 mcg PO QDAY thyroid 08/20/17 [History Last Taken 12/22/19] cholecalciferol (vitamin D3) 125 mcg (5,000 unit) capsule 125 mcg PO DAILY vitamin 01/15/21 [History Last Taken Unknown] acetaminophen 500 mg tablet (Tylenol Extra Strength) 1,000 mg (2 x 500 mg) PO Q6H PRN pain #20 tabs 10/22/21 [Rx Last Taken Unknown] insulin glargine 100 unit/mL (3 mL) subcutaneous pen 63 unit subcut QPM ffkcacbv57/19/22 [History Last Taken Unknown] rosuvastatin 20 mg tablet 20 mg PO DAILY #30 tabs 02/03/22 [Rx Last Taken Unknown] insulin lispro 100 unit/mL subcutaneous pen (Humalog KwikPen (U-100) Insulin) 50unit subcut TIDAC 07/20/22 [History Last Taken Unknown] magnesium oxide 400 mg PO QHS 12/27/22 [History Last Taken Unknown] pyridoxine (vitamin B6) 50 mg tablet 50 mg PO TID 12/27/22 [History Last Taken Unknown] dexamethasone 6 mg tablet 6 mg PO DAILY 7 days #7 tabs 12/29/22 [Rx Last Taken Unknown] carvedilol 25 mg tablet 25 mg PO BID #180 tabs 01/13/23 [Rx Last Taken Unknown] apixaban 5 mg tablet (Eliquis) 5 mg PO BID #180 tabs 04/09/23 [Rx Last Taken Unknown] clopidogrel 75 mg tablet 75 mg PO DAILY 08/06/23 [History Last Taken Unknown] Allergy/AdvReac Type Severity Reaction Status Date / Time amiodarone AdvReac Severe significant Verified 12/27/22 16:52 effect on lung function per PFT 09/19/17 Family History Father Colon cancer Mother No problems noted. Surgical History History of electrophysiologic study (10/21/12) History of implantable cardiac defibrillator (ICD) (04/12/12) History of left heart catheterization (01/21/16) Hx of colonoscopy Social History household members: significant other Smoking Status: Former smoker alcohol intake: never substance use type: does not use ROS ROS Narrative Admission Review of Systems: CONSTITUTIONAL: No weight loss, fever, chills, +weakness or fatigue. HEENT: + Congestion, rhinorrhea, sore throat, sneezing, headache. Eyes: No visual loss, blurred vision, double vision or yellow sclerae. Ears, Nose, Throat: No hearing loss. SKIN: No rash or itching, lesions, wounds except + occasional staged ecchymoses. CARDIOVASCULAR: No chest pain, chest pressure or chest discomfort, palpitations,edema, orthopnea, syncopal events. RESPIRATORY: + shortness of breath, cough without marked sputum, worse with exertion. No wheezing, hemoptysis. GASTROINTESTINAL: + anorexia. No nausea, vomiting, diarrhea, abdominal pain, melena, BRBPR. GENITOURINARY: No dysuria, frequency, urgency or retention. NEUROLOGICAL: + Headache. No dizziness, syncope, paralysis, ataxia, numbness or tingling in the extremities, focal weakness, change in bowel or bladder control,seizure. MUSCULOSKELETAL: + muscle, back pain, joint pain or stiffness. HEMATOLOGIC: + Easy bleeding or bruising. LYMPHATICS: No enlarged nodes. No history of splenectomy. PSYCHIATRIC: No history of depression or anxiety. ENDOCRINOLOGIC: + reports of sweating, cold or heat intolerance. No polyuria or polydipsia. ALLERGIES: + history of rhinitis. Vital Signs Vital Signs Vital Signs: 08/06/23 20:27 08/06/23 20:27 08/06/23 20:31 Temperature 97.5 F L 97.9 F Temperature Source Temporal Temporal Pulse Rate 70 73 Respiratory Rate 32 H 30 H Respiratory Effort Short of Breath Respiratory Depth Normal Respiratory Pattern Tachypnea Blood Pressure 167/76 H 167/76 H Blood Pressure Mean 106 106 Pulse Ox 93 93 Oxygen Delivery Method Room Air Room Air Room Air 08/06/23 21:31 08/06/23 21:28 08/06/23 22:00 Temperature 98.2 F 97.8 F Temperature Source Temporal Temporal Pulse Rate 69 71 69 Respiratory Rate 26 H 22 H 26 H Respiratory Effort Respiratory Depth Respiratory Pattern Tachypnea Blood Pressure 180/121 H 170/101 H Blood Pressure Mean 140 124 Pulse Ox 98 94 Oxygen Delivery Method Room Air Room Air Weight Weight: 246 lb 4.101 oz Body Mass Index (BMI) 33.4 Physical Exam Narrative Physical Examination: General: Awake, alert, oriented x 3 and cooperative, seated upright in the ED bed, fatigued, congested, mildly hoarse voice from coughing, coughing during evaluation but appears dry/non-moist in nature. Skin: Normal color, normal turgor, no icterus, no cyanosis except occasional staged ecchymoses. HEENT: AT/NC, EOMI, PERRLA, dry MM, no carotid bruits, difficult to assess JVD given thickened neck. Lungs: Diffusely diminished, greater bases, proper effort, no evidence of any distress, occasional end expiratory wheeze. No rales, ronchi. Heart: Currently regular rate and rhythm; no gallop, rub audible. Abdomen: Soft, obese, NTTP, mildly hyperactive BS, difficult to discern distention and HSM given habitus. Extremities: No cyanosis, no clubbing, mild ankle not markedly pitting edema. Neurological: Patient awake, alert, oriented as noted, cognitive function intact; pupils equally reactive to light and accommodation, cranial nerves II-XII grossly normal, moving all 4 extremities, no focal deficits, strength moderately to severely global decrease secondary to acute presentation. Psychiatric: Affect appears fatigued, no acute evidence of depressive or anxietyfeelings. Results Lab / Micro Data 08/06/23 20:30 08/06/23 20:30 Labs: Laboratory Results - last 24 hr 08/06/23 20:30: WBC 5.5, RBC 4.52 L, Hgb 13.4, Hct 40.5, MCV 89.6, MCH 29.6, MCHC 33.1, RDW Std Deviation 45.4 H, RDW Coeff of Peggy 14.1, Plt Count 125 L, MPV10.8, Immature Gran % (Auto) 0.500, Neut % (Auto) 67.9, Lymph % (Auto) 14.8 L, [place] % (Auto) 13.7 H, Eos % (Auto) 2.6, Baso % (Auto) 0.5, Absolute Neuts (auto)3.7, Absolute Lymphs (auto) 0.81 L, Nucleated RBC % 0, Sodium 137, Potassium 4.3, Chloride 104, Carbon Dioxide 27.0, Anion Gap 6, BUN 27 H, Creatinine 2.28 H, Estim Creat Clear Calc 35.02, Est GFR (MDRD) Af Amer 36 L, Est GFR (MDRD) Non-Af 30 L, BUN/Creatinine Ratio 11.8, Glucose 344 H, Calcium 8.7 08/06/23 20:50: Acetone Level NEGATIVE Micro: Microbiology 08/06/23 20:50 Mucosa - Nose SARS-CoV-2, Influenza & RSV (PCR) - Final Imaging Radiology Impression Chest X-Ray 08/06/23 21:05 IMPRESSION: Mild nonspecific bibasilar interstitial thickening of uncertain chronicity more pronounced on the left. Cannot exclude inflammatory changes. Clinical correlation is recommended as well as comparison with prior studies when available assessed for interval changes Electronically Signed: Guevara Crowder MD at 21:31 EDT , Assessment & Plan Assessment/Plan (1) Viral syndrome: (2) Adult failure to thrive: PLAN: Plan The patient is a 77 y/o M w/ PMHx: Suspected PAF, Obesity, Presumed HFpEF, CAD/Ischemic cardiomyopathy s/p AICD/pacemaker, HTN, HLD, Diabetes mellitus typeII, Hx VF Cardiac arrest, Former tobacco use, CKD stage III unclear subtype withsolitary kidney, Hypothyroidism who presents to the [facility] ED on 08/06/23 with history of cold-like symptoms starting over the last 3 days with mild headache, congestion, rhinorrhea, sore throat, chills, nonproductive cough, increased sneezing with mild dyspnea worse with exertion not improving with his girlfriendhaving similar symptoms although she seems to have improved but on day of presentation he had significant increased weakness and debility having difficulty even getting up prompting EMS call. He has noted that he is been having elevated blood sugars with poor oral intake recently. #1. Adult FTT, Debility secondary to Suspected Acute Viral Syndrome: Given significant debility will admit to medical surgical floor, maintain on fall precautions, maintain on ATC budesonide therapy, PRN albuterol, HOB, IS parameters, if able obtain sputum Cx, obtain full respiratory viral panel, procalcitonin, monitor for development of super imposed bacterial pneumonia, IVFs overnight with repeat AM CXR, encourage OOB, PT/OT/CM consultation for discharge planning. #2. Acute thrombocytopenia: Suspect reactive given acute viral syndrome, admission platelet 125, baseline previously primarily normal range but has occasionally been thrombocytopenic in the past but unclear circumstances, continueto closely trend CBC. #3. Suspected PAF: Patient is uncertain why he has been started on Eliquis, will continue Coreg and although uncertain suspect likely underlying A-fib as hedenies any clot including DVT or PE history. #4. Diabetes mellitus type II with hyperglycemia: Will continue home insulin regimen, ADA diet, accu checks w/ ISS. #5. Presumed HFpEF/Ischemic cardiomyopathy: 02/02/2022 echocardiogram with normal LV size, EF 55%, mild segmental systolic dysfunction, mildly enlarged LA,try sinus/trileaflet aortic valve, bubble contrast AT negative for shunt but patient is status post AICD placement thus EF could have certainly been reduced previously, continue patient Plavix, Eliquis, Coreg and statin therapy. #6. CAD with history of V-fib cardiac arrest: We will continue patient apixabanand Plavix, continue Coreg and statin therapy, not on GRETCHEN or/ARB possibly secondary to renal disease. #7. Chronic Kidney Disease Stage III, unclear subtype with solitary kidney: Admission BUN/Cr 27/2.28, GFR upon current presentation 30, baseline renal function primarily 1.7-2.4 with GFR primarily 30-40 range, repeat BMP in AM. #8. Hypertension: Continue home regimen including Coreg, PRN hydralazine. #9. Diabetes mellitus type II: Hold oral home regimen, continue home insulin regimen, ADA diet, accu checks w/ ISS. #10. Hypothyroidism: We will can patient home levothyroxine regimen. #11. Hyperlipidemia: We will continue patient home statin therapy. #12. Allergic rhinitis: Patient on chronic fexofenadine hydrochloride however it appears he also takes pseudoephedrine combination, strongly encourage this fiona avoided chronically if able. #13. Obesity: Weight loss and lifestyle changes encouraged. #14. Former tobacco use: Encourage continued tobacco cessation. #15. DVT prophylaxis: We will continue patient on Eliquis regimen. #16. CODE status: Patient HCPOA and living will are not in place but he notes his significant other would be his decision-maker if necessary. Discussed CODE status at length including difference between FULL code, DNR-CCA and DNR-CC status. Following discussions about the differences in these status, requested Full Code status. Advanced Care Planning Face to Face Time: 16 minutes. Charges/Coding Visit Charges Inpatient E&M: 35098 Init Hosp L2 Procedures Hospitalists Procedures: 58571 Advncd Care Plan 30 Min 08/06/23 2320 <Electronically signed by Gela Salinas MD> Cosigner Signature (if applicable): CC: Dr. Gela Salinas MD; Dr. Nathen Chang MD~ Signed [facility] Work Phone: [phone]) 239-697405-03-2024 Discharge summary Author Solomon Griffiths [facility] August 06, 2023 10:11pm Note Date/Time August 06, 2023 8:51pm [facility] Medical Records Department [address] [place] [address] Emergency Department Summary 08/06/23 MR#: [id number] Acct: [id number] Name: PARK SOUSA Rep #:[id number] : 1945 77 From: Carlyn VALLECILLO PCP: Dr. Nathen Chang MD Status:REG ER Location: ED HPI <RUTH ANN Fritz - Last Filed: 08/06/23 21:57> History of Present Illness Chief Complaint: Cough Narrative Narrative: Patient presenting today with cold-like symptoms that started 3 days ago. He reports that he has had headache, chills, nonproductive cough, and sneezing. His girlfriend is sick with similar symptoms. He laid down to rest and was unable to get out of bed due to feeling weak, prompting his girlfriend to call EMS. EMS noticed that his blood glucose was 500. Patient reports that he does have a history of T1DM, it is not unusual for him to have hyperglycemia and is working with his doctor to get this under control. He does take insulin daily and has had all of his normal doses today. He has not had much to eat today dueto not feeling well. He denies any fevers, abdominal pain, nausea, vomiting, chest pain, and shortness of breath. 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) Solitary kidney Sustained ventricular tachycardia Ventricular fibrillation Home Medications fexofenadine-pseudoephedrine ER 180 mg-240 mg tablet,ext.release 24 hr 1 tab.sr PO DAILY allergies 01/20/16 [History Last Taken Unknown] levothyroxine 100 mcg capsule 100 mcg PO QDAY thyroid 08/20/17 [History Last Taken 12/22/19] cholecalciferol (vitamin D3) 125 mcg (5,000 unit) capsule 125 mcg PO DAILY vitamin 01/15/21 [History Last Taken Unknown] acetaminophen 500 mg tablet (Tylenol Extra Strength) 1,000 mg (2 x 500 mg) PO Q6H PRN pain #20 tabs 10/22/21 [Rx Last Taken Unknown] insulin glargine 100 unit/mL (3 mL) subcutaneous pen 63 unit subcut QPM [id number]/22 [History Last Taken Unknown] rosuvastatin 20 mg tablet 20 mg PO DAILY #30 tabs 02/03/22 [Rx Last Taken Unknown] insulin lispro 100 unit/mL subcutaneous pen (Humalog KwikPen (U-100) Insulin) 50unit subcut TIDAC 07/20/22 [History Last Taken Unknown] magnesium oxide 400 mg PO QHS 12/27/22 [History Last Taken Unknown] pyridoxine (vitamin B6) 50 mg tablet 50 mg PO TID 12/27/22 [History Last Taken Unknown] dexamethasone 6 mg tablet 6 mg PO DAILY 7 days #7 tabs 12/29/22 [Rx Last Taken Unknown] carvedilol 25 mg tablet 25 mg PO BID #180 tabs 01/13/23 [Rx Last Taken Unknown] apixaban 5 mg tablet (Eliquis) 5 mg PO BID #180 tabs 04/09/23 [Rx Last Taken Unknown] Allergy/AdvReac Type Severity Reaction Status Date / Time amiodarone AdvReac Severe significant Verified 12/27/22 16:52 effect on lung function per PFT 09/19/17 Family History Father Colon cancer Mother No problems noted. Surgical History History of electrophysiologic study (10/21/12) History of implantable cardiac defibrillator (ICD) (04/12/12) History of left heart catheterization (01/21/16) Hx of colonoscopy Social History household members: significant other Smoking Status: Former smoker alcohol intake: never substance use type: does not use ROS <RUTH ANN Fritz - Last Filed: 08/06/23 21:57> ROS ED Constitutional Constitutional ED: Reports chills; Denies fever(s) Cardiovascular Cardiovascular: Denies chest pain or palpitations Respiratory/Chest Respiratory/Chest: Reports cough; Denies dyspnea Gastrointestinal Gastrointestinal: Denies abdominal pain, diarrhea, nausea or vomiting Musculoskeletal Musculoskeletal: Denies arthralgias or myalgias Integumentary Denies rash Neurologic Neurologic: Reports weakness EXAM <RUTH ANN Fritz - Last Filed: 08/06/23 21:57> Physical Exam Const Vital Signs: 08/06/23 20:27 08/06/23 20:27 08/06/23 20:31 Temperature 97.5 F L 97.9 F Temperature Source Temporal Temporal Pulse Rate 70 73 Respiratory Rate 32 H 30 H Respiratory Effort Short of Breath Respiratory Depth Normal Respiratory Pattern Tachypnea Blood Pressure 167/76 H 167/76 H Blood Pressure Mean 106 106 Pulse Ox 93 93 Oxygen Delivery Method Room Air Room Air Room Air 08/06/23 21:31 Temperature 98.2 F Temperature Source Temporal Pulse Rate 69 Respiratory Rate 26 H Respiratory Effort Respiratory Depth Respiratory Pattern Blood Pressure 180/121 H Blood Pressure Mean 140 Pulse Ox 98 Oxygen Delivery Method Room Air Positive well nourished, well developed and no apparent distress General Appearance ED: well developed HEENT Reports normocephalic and head/scalp atraumatic Mouth ED: Yes moist mucous membranes normal Eyes PERRL and EOMs intact bilaterally Neck full ROM and supple Chest Wall inspection of chest normal Resp normal respiratory effort Resp Narrative: Faint expiratory wheezes at the lung bases bilaterally Cardio regular rate and regular rhythm GI soft to palpation, non-tender, non-distended and no masses Back/Spine normal ROM and normal to inspection Extremity normal to inspection and full ROM Neuro oriented x3, CN's II-XII intact bilaterally, moves all extremities, no focal motor deficits and no sensory deficits noted Sensorium / Orientation: awake and alert Psych mental status grossly normal and thought process normal Skin no rashes or lesions noted and no wounds <Dr. Solomon Griffiths MD - Last Filed: 08/06/23 22:03> Physical Exam Const Vital Signs: 08/06/23 20:27 08/06/23 20:27 08/06/23 20:31 Temperature 97.5 F L 97.9 F Temperature Source Temporal Temporal Pulse Rate 70 73 Respiratory Rate 32 H 30 H Respiratory Effort Short of Breath Respiratory Depth Normal Respiratory Pattern Tachypnea Blood Pressure 167/76 H 167/76 H Blood Pressure Mean 106 106 Pulse Ox 93 93 Oxygen Delivery Method Room Air Room Air Room Air 08/06/23 21:31 Temperature 98.2 F Temperature Source Temporal Pulse Rate 69 Respiratory Rate 26 H Respiratory Effort Respiratory Depth Respiratory Pattern Blood Pressure 180/121 H Blood Pressure Mean 140 Pulse Ox 98 Oxygen Delivery Method Room Air MDM <RUTH ANN Fritz - Last Filed: 08/06/23 21:57> MDM MDM Narrative Medical decision making narrative: Patient presenting with cold-like symptoms that started 3 days ago. He is well-appearing and in no acute distress. He denies any chest pain or shortness of breath. EMS noticed he was hyperglycemic at 500, he will be given IV fluids. He does have a history of type 1 diabetes mellitus and does take insulin at home. Labs to be obtained to rule out DKA, COVID, influenza, and RSV swabs willbe obtained. Chest x-ray will be obtained to rule out pneumonia and is negativefor acute findings. He will be given breathing treatments. COVID and influenza negative. Patient is not in DKA, hyperglycemia is improving. Patient feels that he is too weak to go home, he was unable to get out of his bed which is whyEMS was called. I do think he would benefit from admission to the hospital. Will speak with the hospitalist. I have personally performed a face to face assessment of the patient and have reviewed the MAHAD Note. I performed a substantive portion of the visit including all aspects of the following. My hurtado findings include: History is 77-year-old male URI symptoms last 3 to 4 days. has been sick for about a week with similar symptoms. He denies any vomiting or diarrhea. Nofever. Nonproductive cough. He has been having some wheezing. She states he is generally weak he could not even get around the house today he was so weak. Had trouble walking due to generalized weakness. No fall. No trauma. No chestpain. He is on both Eliquis and Plavix. Exam is [77-year-old male vital signs stable afebrile. Pulse ox 93% on room air no signs hypoxia. HEENT exam mild dry mucous membranes. Neck nontender no lymphadenopathy. Lungs currently are clear to auscultation bilaterally. Initially physician's family assistant said he was wheezing and has had aerosols as wheezing is resolved. Heart regular rhythm rate about 70 no murmur. Abdomen soft nontender. Moving all 4 extremities. Nontender no edema. Neurologically is awake and alert. No focal motor deficits.] Medical Decision Making [77-year-old male URI symptoms. Differential would include pneumonia versus COVID versus flu versus other viral syndromes. Chest x-ray and labs and respiratory panel be obtained. Will be treated with DuoNeb and albuterol aerosols for his bronchospasm. He will need to be admitted for his generalized weakness.] Other additions or changes: [None] Lab Data Attestation: I reviewed the patient's lab results. Lab results narrative: Platelet count 125, BUN 27, creatinine 2.28, glucose 344 Labs: Laboratory Results - last 24 hr 08/06/23 08/06/23 20:30 20:50 WBC 5.5 RBC 4.52 L Hgb 13.4 Hct 40.5 MCV 89.6 MCH 29.6 MCHC 33.1 RDW Std Deviation 45.4 H RDW Coeff of Peggy 14.1 Plt Count 125 L MPV 10.8 Immature Gran % (Auto) 0.500 Neut % (Auto) 67.9 Lymph % (Auto) 14.8 L [place] % (Auto) 13.7 H Eos % (Auto) 2.6 Baso % (Auto) 0.5 Absolute Neuts (auto) 3.7 Absolute Lymphs (auto) 0.81 L Nucleated RBC % 0 Sodium 137 Potassium 4.3 Chloride 104 Carbon Dioxide 27.0 Anion Gap 6 BUN 27 H Creatinine 2.28 H Estim Creat Clear Calc 35.02 Est GFR (MDRD) Af Amer 36 L Est GFR (MDRD) Non-Af 30 L BUN/Creatinine Ratio 11.8 Glucose 344 H Calcium 8.7 Acetone Level NEGATIVE Radiography X-Ray: Read by ED Physician Diagnostic Testing: Clinical Impression(s) from Imaging Studies Chest X-Ray 08/06/23 21:05 IMPRESSION: Mild nonspecific bibasilar interstitial thickening of uncertain chronicity more pronounced on the left. Cannot exclude inflammatory changes. Clinical correlation is recommended as well as comparison with prior studies when available assessed for interval changes Electronically Signed: Guevara Crowder MD at 21:31 EDT , <Dr. Solomon Griffiths MD - Last Filed: 08/06/23 22:03> [facility] Narrative Medical decision making narrative: Patient presenting with cold-like symptoms that started 3 days ago. He is well-appearing and in no acute distress. He denies any chest pain or shortness of breath. EMS noticed he was hyperglycemic at 500, he will be given IV fluids. He does have a history of type 1 diabetes mellitus and does take insulin at home. Labs to be obtained to rule out DKA, COVID, influenza, and RSV swabs will be obtained. Chest x-ray will be obtained to rule out pneumonia. He will be given breathing treatments. I have personally performed a face to face assessment of the patient and have reviewed the MAHAD Note. I performed a substantive portion of the visit including all aspects of the following. My hurtado findings include: History is 77-year-old male URI symptoms last 3 to 4 days. has been sick for about a week with similar symptoms. He denies any vomiting or diarrhea. No fever. Nonproductive cough. He has been having some wheezing. She states he is generally weak he could not even get around the house today he was so weak. Had trouble walking due to generalized weakness. No fall. No trauma. No chest pain. He is on both Eliquis and Plavix. Exam is [77-year-old male vital signs stable afebrile. Pulse ox 93% on room air no signs hypoxia. HEENT exam mild dry mucous membranes. Neck nontender no lymphadenopathy. Lungs currently are clear to auscultation bilaterally. Initially physician's family assistant said he was wheezing and has had aerosols as wheezing is resolved. Heart regular rhythm rate about 70 no murmur. Abdomen soft nontender. Moving all 4 extremities. Nontender no edema. Neurologically is awake and alert. No focal motor deficits.] Medical Decision Making [77-year-old male URI symptoms. Differential would include pneumonia versus COVID versus flu versus other viral syndromes. Chest x-ray and labs and respiratory panel be obtained. Will be treated with DuoNeb and albuterol aerosols for his bronchospasm. He will need to be admitted for his generalized weakness.] Other additions or changes: [None] History & Record Review Discussion w/independent historian: Patient Additional record(s) reviewed:: Prior inpatient record, Prior outpatient record, Prior ED visit, Prior labs and No prior records Lab Data Attestation: I reviewed the patient's lab results. Lab results narrative: CBC white count of 5. H&H 13 and 40. Platelets 125,000. Electrolytes show gap of 6. BUN 27 creatinine 2.28 which is consistent with his baseline renal insufficiency and chronic kidney disease. Glucose 344 he is diabetic but is not in DKA. His acetone is negative and his gap is normal. Chest x-ray shows chronic changes. No obvious pneumonia. There is some bibasilar atelectasis. COVID, flu and RSV are negative. Labs: Laboratory Results - last 24 hr 08/06/23 08/06/23 20:30 20:50 WBC 5.5 RBC 4.52 L Hgb 13.4 Hct 40.5 MCV 89.6 MCH 29.6 MCHC 33.1 RDW Std Deviation 45.4 H RDW Coeff of Peggy 14.1 Plt Count 125 L MPV 10.8 Immature Gran % (Auto) 0.500 Neut % (Auto) 67.9 Lymph % (Auto) 14.8 L [place] % (Auto) 13.7 H Eos % (Auto) 2.6 Baso % (Auto) 0.5 Absolute Neuts (auto) 3.7 Absolute Lymphs (auto) 0.81 L Nucleated RBC % 0 Sodium 137 Potassium 4.3 Chloride 104 Carbon Dioxide 27.0 Anion Gap 6 BUN 27 H Creatinine 2.28 H Estim Creat Clear Calc 35.02 Est GFR (MDRD) Af Amer 36 L Est GFR (MDRD) Non-Af 30 L BUN/Creatinine Ratio 11.8 Glucose 344 H Calcium 8.7 Acetone Level NEGATIVE Radiography Chest X-Ray - ED: 1 View, Read by ED Physician, Read by Radiologist, Normal, Heart, Lungs, Mediastinum, Bony Structures, No Acute Disease and Chronic Changes Diagnostic Testing: Clinical Impression(s) from Imaging Studies Chest X-Ray 08/06/23 21:05 IMPRESSION: Mild nonspecific bibasilar interstitial thickening of uncertain chronicity more pronounced on the left. Cannot exclude inflammatory changes. Clinical correlation is recommended as well as comparison with prior studies when available assessed for interval changes Electronically Signed: Guevara Crowder MD at 21:31 EDT , Chest x-ray, 2 views, AP and lateral, interpreted both by myself and the radiologist. There is chronic changes. Bibasilar atelectasis. No obvious pneumonia. No effusion. Left-sided pacemaker. Discharge Plan Dx/Rx/DC Orders Clinical Impression: Viral syndrome, Hyperglycemia due to diabetes mellitus, Generalized weakness, Unable to ambulate, Chronic kidney disease, Chronic anticoagulation Disposition Disposition: Acute Care Hospital [facility] What to do if you have Problems For any increased pain, shortness of breath, bleeding, nausea or vomiting, chest pain, or any unexpected problems, contact your Primary Care Provider. Call [facility] ([phone]) or report to the closest Emergency Room. Call 911 if necessary. 08/06/232156 <Electronically signed by Carlyn VALLECILLO> Cosigner Signature (if applicable): 08/06/232210 <Electronically signed by Solomon Griffiths MD> CC: Dr. Nathen Chang MD ~ Signed [facility] Work Phone: 1(131) 222-162205-02-2024 Discharge summary Author Solomon Griffiths [facility] August 06, 2023 10:11pm Note Date/Time August 06, 2023 8:51pm [facility] Medical Records Department [address] [place] [address] Emergency Department Summary 08/06/23 MR#: [id number] Acct: [id number] Name: PARK SOUSA Rep #:[id number] : 1945 77 From: Carlyn VALLECILLO PCP: Dr. Nathen Chang MD Status:REG ER Location: ED HPI <RUTH ANN Fritz - Last Filed: 08/06/23 21:57> History of Present Illness Chief Complaint: Cough Narrative Narrative: Patient presenting today with cold-like symptoms that started 3 days ago. He reports that he has had headache, chills, nonproductive cough, and sneezing. His girlfriend is sick with similar symptoms. He laid down to rest and was unable to get out of bed due to feeling weak, prompting his girlfriend to call EMS. EMS noticed that his blood glucose was 500. Patient reports that he does have a history of T1DM, it is not unusual for him to have hyperglycemia and is working with his doctor to get this under control. He does take insulin daily and has had all of his normal doses today. He has not had much to eat today dueto not feeling well. He denies any fevers, abdominal pain, nausea, vomiting, chest pain, and shortness of breath. 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) Solitary kidney Sustained ventricular tachycardia Ventricular fibrillation Home Medications fexofenadine-pseudoephedrine ER 180 mg-240 mg tablet,ext.release 24 hr 1 tab.sr PO DAILY allergies 01/20/16 [History Last Taken Unknown] levothyroxine 100 mcg capsule 100 mcg PO QDAY thyroid 08/20/17 [History Last Taken 12/22/19] cholecalciferol (vitamin D3) 125 mcg (5,000 unit) capsule 125 mcg PO DAILY vitamin 01/15/21 [History Last Taken Unknown] acetaminophen 500 mg tablet (Tylenol Extra Strength) 1,000 mg (2 x 500 mg) PO Q6H PRN pain #20 tabs 10/22/21 [Rx Last Taken Unknown] insulin glargine 100 unit/mL (3 mL) subcutaneous pen 63 unit subcut QPM [id number]/19/22 [History Last Taken Unknown] rosuvastatin 20 mg tablet 20 mg PO DAILY #30 tabs 02/03/22 [Rx Last Taken Unknown] insulin lispro 100 unit/mL subcutaneous pen (Humalog KwikPen (U-100) Insulin) 50unit subcut TIDAC 07/20/22 [History Last Taken Unknown] magnesium oxide 400 mg PO QHS 12/27/22 [History Last Taken Unknown] pyridoxine (vitamin B6) 50 mg tablet 50 mg PO TID 12/27/22 [History Last Taken Unknown] dexamethasone 6 mg tablet 6 mg PO DAILY 7 days #7 tabs 12/29/22 [Rx Last Taken Unknown] carvedilol 25 mg tablet 25 mg PO BID #180 tabs 01/13/23 [Rx Last Taken Unknown] apixaban 5 mg tablet (Eliquis) 5 mg PO BID #180 tabs 04/09/23 [Rx Last Taken Unknown] Allergy/AdvReac Type Severity Reaction Status Date / Time amiodarone AdvReac Severe significant Verified 12/27/22 16:52 effect on lung function per PFT 09/19/17 Family History Father Colon cancer Mother No problems noted. Surgical History History of electrophysiologic study (10/21/12) History of implantable cardiac defibrillator (ICD) (04/12/12) History of left heart catheterization (01/21/16) Hx of colonoscopy Social History household members: significant other Smoking Status: Former smoker alcohol intake: never substance use type: does not use ROS <RUTH ANN Fritz - Last Filed: 08/06/23 21:57> ROS ED Constitutional Constitutional ED: Reports chills; Denies fever(s) Cardiovascular Cardiovascular: Denies chest pain or palpitations Respiratory/Chest Respiratory/Chest: Reports cough; Denies dyspnea Gastrointestinal Gastrointestinal: Denies abdominal pain, diarrhea, nausea or vomiting Musculoskeletal Musculoskeletal: Denies arthralgias or myalgias Integumentary Denies rash Neurologic Neurologic: Reports weakness EXAM <RUTH ANN Fritz - Last Filed: 08/06/23 21:57> Physical Exam Const Vital Signs: 08/06/23 20:27 08/06/23 20:27 08/06/23 20:31 Temperature 97.5 F L 97.9 F Temperature Source Temporal Temporal Pulse Rate 70 73 Respiratory Rate 32 H 30 H Respiratory Effort Short of Breath Respiratory Depth Normal Respiratory Pattern Tachypnea Blood Pressure 167/76 H 167/76 H Blood Pressure Mean 106 106 Pulse Ox 93 93 Oxygen Delivery Method Room Air Room Air Room Air 08/06/23 21:31 Temperature 98.2 F Temperature Source Temporal Pulse Rate 69 Respiratory Rate 26 H Respiratory Effort Respiratory Depth Respiratory Pattern Blood Pressure 180/121 H Blood Pressure Mean 140 Pulse Ox 98 Oxygen Delivery Method Room Air Positive well nourished, well developed and no apparent distress General Appearance ED: well developed HEENT Reports normocephalic and head/scalp atraumatic Mouth ED: Yes moist mucous membranes normal Eyes PERRL and EOMs intact bilaterally Neck full ROM and supple Chest Wall inspection of chest normal Resp normal respiratory effort Resp Narrative: Faint expiratory wheezes at the lung bases bilaterally Cardio regular rate and regular rhythm GI soft to palpation, non-tender, non-distended and no masses Back/Spine normal ROM and normal to inspection Extremity normal to inspection and full ROM Neuro oriented x3, CN's II-XII intact bilaterally, moves all extremities, no focal motor deficits and no sensory deficits noted Sensorium / Orientation: awake and alert Psych mental status grossly normal and thought process normal Skin no rashes or lesions noted and no wounds <Dr. Solomon Griffiths MD - Last Filed: 08/06/23 22:03> Physical Exam Const Vital Signs: 08/06/23 20:27 08/06/23 20:27 08/06/23 20:31 Temperature 97.5 F L 97.9 F Temperature Source Temporal Temporal Pulse Rate 70 73 Respiratory Rate 32 H 30 H Respiratory Effort Short of Breath Respiratory Depth Normal Respiratory Pattern Tachypnea Blood Pressure 167/76 H 167/76 H Blood Pressure Mean 106 106 Pulse Ox 93 93 Oxygen Delivery Method Room Air Room Air Room Air 08/06/23 21:31 Temperature 98.2 F Temperature Source Temporal Pulse Rate 69 Respiratory Rate 26 H Respiratory Effort Respiratory Depth Respiratory Pattern Blood Pressure 180/121 H Blood Pressure Mean 140 Pulse Ox 98 Oxygen Delivery Method Room Air MDM <RUTH ANN Fritz - Last Filed: 08/06/23 21:57> [facility] Narrative Medical decision making narrative: Patient presenting with cold-like symptoms that started 3 days ago. He is well-appearing and in no acute distress. He denies any chest pain or shortness of breath. EMS noticed he was hyperglycemic at 500, he will be given IV fluids. He does have a history of type 1 diabetes mellitus and does take insulin at home. Labs to be obtained to rule out DKA, COVID, influenza, and RSV swabs willbe obtained. Chest x-ray will be obtained to rule out pneumonia and is negativefor acute findings. He will be given breathing treatments. COVID and influenza negative. Patient is not in DKA, hyperglycemia is improving. Patient feels that he is too weak to go home, he was unable to get out of his bed which is whyEMS was called. I do think he would benefit from admission to the hospital. Will speak with the hospitalist. I have personally performed a face to face assessment of the patient and have reviewed the MAHAD Note. I performed a substantive portion of the visit including all aspects of the following. My hurtado findings include: History is 77-year-old male URI symptoms last 3 to 4 days. has been sick for about a week with similar symptoms. He denies any vomiting or diarrhea. Nofever. Nonproductive cough. He has been having some wheezing. She states he is generally weak he could not even get around the house today he was so weak. Had trouble walking due to generalized weakness. No fall. No trauma. No chestpain. He is on both Eliquis and Plavix. Exam is [77-year-old male vital signs stable afebrile. Pulse ox 93% on room air no signs hypoxia. HEENT exam mild dry mucous membranes. Neck nontender no lymphadenopathy. Lungs currently are clear to auscultation bilaterally. Initially physician's family assistant said he was wheezing and has had aerosols as wheezing is resolved. Heart regular rhythm rate about 70 no murmur. Abdomen soft nontender. Moving all 4 extremities. Nontender no edema. Neurologically is awake and alert. No focal motor deficits.] Medical Decision Making [77-year-old male URI symptoms. Differential would include pneumonia versus COVID versus flu versus other viral syndromes. Chest x-ray and labs and respiratory panel be obtained. Will be treated with DuoNeb and albuterol aerosols for his bronchospasm. He will need to be admitted for his generalized weakness.] Other additions or changes: [None] Lab Data Attestation: I reviewed the patient's lab results. Lab results narrative: Platelet count 125, BUN 27, creatinine 2.28, glucose 344 Labs: Laboratory Results - last 24 hr 08/06/23 08/06/23 20:30 20:50 WBC 5.5 RBC 4.52 L Hgb 13.4 Hct 40.5 MCV 89.6 MCH 29.6 MCHC 33.1 RDW Std Deviation 45.4 H RDW Coeff of Peggy 14.1 Plt Count 125 L MPV 10.8 Immature Gran % (Auto) 0.500 Neut % (Auto) 67.9 Lymph % (Auto) 14.8 L [place] % (Auto) 13.7 H Eos % (Auto) 2.6 Baso % (Auto) 0.5 Absolute Neuts (auto) 3.7 Absolute Lymphs (auto) 0.81 L Nucleated RBC % 0 Sodium 137 Potassium 4.3 Chloride 104 Carbon Dioxide 27.0 Anion Gap 6 BUN 27 H Creatinine 2.28 H Estim Creat Clear Calc 35.02 Est GFR (MDRD) Af Amer 36 L Est GFR (MDRD) Non-Af 30 L BUN/Creatinine Ratio 11.8 Glucose 344 H Calcium 8.7 Acetone Level NEGATIVE Radiography X-Ray: Read by ED Physician Diagnostic Testing: Clinical Impression(s) from Imaging Studies Chest X-Ray 08/06/23 21:05 IMPRESSION: Mild nonspecific bibasilar interstitial thickening of uncertain chronicity more pronounced on the left. Cannot exclude inflammatory changes. Clinical correlation is recommended as well as comparison with prior studies when available assessed for interval changes Electronically Signed: Guevara Crowder MD at 21:31 EDT , <Dr. Solomon Griffiths MD - Last Filed: 08/06/23 22:03> [facility] MDM Narrative Medical decision making narrative: Patient presenting with cold-like symptoms that started 3 days ago. He is well-appearing and in no acute distress. He denies any chest pain or shortness of breath. EMS noticed he was hyperglycemic at 500, he will be given IV fluids. He does have a history of type 1 diabetes mellitus and does take insulin at home. Labs to be obtained to rule out DKA, COVID, influenza, and RSV swabs will be obtained. Chest x-ray will be obtained to rule out pneumonia. He will be given breathing treatments. I have personally performed a face to face assessment of the patient and have reviewed the MAHAD Note. I performed a substantive portion of the visit including all aspects of the following. My hurtado findings include: History is 77-year-old male URI symptoms last 3 to 4 days. has been sick for about a week with similar symptoms. He denies any vomiting or diarrhea. No fever. Nonproductive cough. He has been having some wheezing. She states he is generally weak he could not even get around the house today he was so weak. Had trouble walking due to generalized weakness. No fall. No trauma. No chest pain. He is on both Eliquis and Plavix. Exam is [77-year-old male vital signs stable afebrile. Pulse ox 93% on room air no signs hypoxia. HEENT exam mild dry mucous membranes. Neck nontender no lymphadenopathy. Lungs currently are clear to auscultation bilaterally. Initially physician's family assistant said he was wheezing and has had aerosols as wheezing is resolved. Heart regular rhythm rate about 70 no murmur. Abdomen soft nontender. Moving all 4 extremities. Nontender no edema. Neurologically is awake and alert. No focal motor deficits.] Medical Decision Making [77-year-old male URI symptoms. Differential would include pneumonia versus COVID versus flu versus other viral syndromes. Chest x-ray and labs and respiratory panel be obtained. Will be treated with DuoNeb and albuterol aerosols for his bronchospasm. He will need to be admitted for his generalized weakness.] Other additions or changes: [None] History & Record Review Discussion w/independent historian: Patient Additional record(s) reviewed:: Prior inpatient record, Prior outpatient record, Prior ED visit, Prior labs and No prior records Lab Data Attestation: I reviewed the patient's lab results. Lab results narrative: CBC white count of 5. H&H 13 and 40. Platelets 125,000. Electrolytes show gap of 6. BUN 27 creatinine 2.28 which is consistent with his baseline renal insufficiency and chronic kidney disease. Glucose 344 he is diabetic but is not in DKA. His acetone is negative and his gap is normal. Chest x-ray shows chronic changes. No obvious pneumonia. There is some bibasilar atelectasis. COVID, flu and RSV are negative. Labs: Laboratory Results - last 24 hr 08/06/23 08/06/23 20:30 20:50 WBC 5.5 RBC 4.52 L Hgb 13.4 Hct 40.5 MCV 89.6 MCH 29.6 MCHC 33.1 RDW Std Deviation 45.4 H RDW Coeff of Peggy 14.1 Plt Count 125 L MPV 10.8 Immature Gran % (Auto) 0.500 Neut % (Auto) 67.9 Lymph % (Auto) 14.8 L [place] % (Auto) 13.7 H Eos % (Auto) 2.6 Baso % (Auto) 0.5 Absolute Neuts (auto) 3.7 Absolute Lymphs (auto) 0.81 L Nucleated RBC % 0 Sodium 137 Potassium 4.3 Chloride 104 Carbon Dioxide 27.0 Anion Gap 6 BUN 27 H Creatinine 2.28 H Estim Creat Clear Calc 35.02 Est GFR (MDRD) Af Amer 36 L Est GFR (MDRD) Non-Af 30 L BUN/Creatinine Ratio 11.8 Glucose 344 H Calcium 8.7 Acetone Level NEGATIVE Radiography Chest X-Ray - ED: 1 View, Read by ED Physician, Read by Radiologist, Normal, Heart, Lungs, Mediastinum, Bony Structures, No Acute Disease and Chronic Changes Diagnostic Testing: Clinical Impression(s) from Imaging Studies Chest X-Ray 08/06/23 21:05 IMPRESSION: Mild nonspecific bibasilar interstitial thickening of uncertain chronicity more pronounced on the left. Cannot exclude inflammatory changes. Clinical correlation is recommended as well as comparison with prior studies when available assessed for interval changes Electronically Signed: Guevara Crowder MD at 21:31 EDT , Chest x-ray, 2 views, AP and lateral, interpreted both by myself and the radiologist. There is chronic changes. Bibasilar atelectasis. No obvious pneumonia. No effusion. Left-sided pacemaker. Discharge Plan Dx/Rx/DC Orders Clinical Impression: Viral syndrome, Hyperglycemia due to diabetes mellitus, Generalized weakness, Unable to ambulate, Chronic kidney disease, Chronic anticoagulation Disposition Disposition: Acute Care Hospital [facility] What to do if you have Problems For any increased pain, shortness of breath, bleeding, nausea or vomiting, chest pain, or any unexpected problems, contact your Primary Care Provider. Call [facility] ([phone]) or report to the closest Emergency Room. Call 911 if necessary. 08/06/232156 <Electronically signed by Carlyn VALLECILLO> Cosigner Signature (if applicable): 08/06/232210 <Electronically signed by Solomon Griffiths MD> CC: Dr. Nathen Chang MD ~ Signed [facility] Work Phone: [phone]) 359-703409-23-2023 History and physical note Author Gela Salinas [facility] December 27, 2022 6:59pm Note Date/Time December 27, 2022 6:38pm [facility] Medical Records Department [address] [place] [address] H&P Exam - Hospitalist 12/27/22 1830 MR#: [id number] Acct: [id number] Name: PARK SOUSA Rep #:[id number] : 1945 77 From: Gela Salinas MD PCP: Dr. Nathen Chang MD Status:REG ER Location: ED HPI - General General Date of Admission: 12/27/22 Date of Service: 12/27/22 Chief Complaint: Dyspnea, cough, diarrhea, fatigued, + outside COVID testing. HPI Narrative The patient is a 77 y/o M w/ PMHx: CKD stage III unclear subtype, CAD, Hx VF Cardiac arrest s/p pacer/AICD, HFpEF/Ischemic cardiomyopathy, Obesity, Tobacco use, HTN, HLD, Hypothyroidism, Allergic rhintis who presents to the [facility] ED on 12/27/22 with history of several days of increased fatigue, malaise, difficulty even performing tasks with dyspnea worse with exertion with poor appetite, nausea, emesis, diarrhea, body aches, congestion, sore throat with home COVID test on Thursday noted to be positive when patient worsened with concurrent fevers and chills at home prompting eventual EMS call with noted hypoxia for squad of 88% on room air prompting transition to the ED for evaluation. Patientsignificant is present and she has had similar symptoms and did a home test thatwas negative but discussed if he is truly COVID-positive she certainly has COVIDas well. From discussion with patient significant and him he was vaccinated with [place] and Pfizer only. Work-up in the ED included Tmax in the ED 100.8, heart rate 79, BP initially 211/89, respiratory rate 19, 93% on room air, CBC with WBC 5.3, hemoglobin 14.9, MCV 91.2, platelet 123 with lymphopenia, BMP withsodium 132, BUN/creatinine 26/2.25, glucose 414, chest x-ray with no acute cardiopulmonary findings, EKG with sinus rhythm with no acute evidence of ischemia. In the ED patient administered 1 L normal saline. Ordered confirmatory COVID, PCR given timeline to be cautious and will administer hydralazine 20 mg IV x 1 as well as IV decadron 6 mg x 1 given lengthy weight times for transition to in-house bed. 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) Solitary kidney Sustained ventricular tachycardia Ventricular fibrillation Home Medications aspirin 81 mg tablet,delayed release 81 mg PO DAILY heart health 01/20/16 [History Last Taken Unknown] fexofenadine-pseudoephedrine ER 180 mg-240 mg tablet,ext.release 24 hr 1 tab.sr PO DAILY allergies 01/20/16 [History Last Taken Unknown] levothyroxine 100 mcg capsule 100 mcg PO QDAY thyroid 08/20/17 [History Last Taken 12/22/19] cholecalciferol (vitamin D3) 125 mcg (5,000 unit) capsule 125 mcg PO DAILY vitamin 01/15/21 [History Last Taken Unknown] acetaminophen 500 mg tablet (Tylenol Extra Strength) 1,000 mg (2 x 500 mg) PO Q6H PRN pain #20 tabs 10/22/21 [Rx Last Taken Unknown] insulin glargine 100 unit/mL (3 mL) subcutaneous pen 63 unit subcut QPM [id number]/19/22 [History Last Taken Unknown] carvedilol 25 mg tablet 25 mg PO BID #180 tabs 11/27/21 [Rx Last Taken Unknown] rosuvastatin 20 mg tablet 20 mg PO DAILY #30 tabs 02/03/22 [Rx Last Taken Unknown] clopidogrel 75 mg tablet 75 mg PO DAILY 07/20/22 [History Last Taken Unknown] insulin lispro 100 unit/mL subcutaneous pen (Humalog KwikPen (U-100) Insulin) 50unit subcut TIDAC 07/20/22 [History Last Taken Unknown] magnesium oxide 400 mg PO QHS 12/27/22 [History Last Taken Unknown] pyridoxine (vitamin B6) 50 mg tablet 50 mg PO TID 12/27/22 [History Last Taken Unknown] Allergy/AdvReac Type Severity Reaction Status Date / Time amiodarone AdvReac Severe significant Verified 12/27/22 16:52 effect on lung function per PFT 09/19/17 Family History (Updated 12/27/22 @ 17:[address] Glea Salinas MD) Father Colon cancer Mother No problems noted. Surgical History History of electrophysiologic study (10/21/12) History of implantable cardiac defibrillator (ICD) (04/12/12) History of left heart catheterization (01/21/16) Hx of colonoscopy Social History (Updated 12/27/22 @ 18:[address] Gela Salinas MD) household members: significant other Smoking Status: Former smoker alcohol intake: never substance use type: does not use ROS ROS Narrative Admission Review of Systems: CONSTITUTIONAL: No weight loss, + fever, chills, weakness or fatigue. HEENT: + Congestion, sore throat. Eyes: No visual loss, blurred vision, double vision or yellow sclerae. Ears, Nose, Throat: No hearing loss, sneezing. SKIN: No rash or itching, lesions, wounds except + occasional staged ecchymoses. CARDIOVASCULAR: No chest pain, chest pressure or chest discomfort, palpitations,edema, orthopnea, syncopal events. RESPIRATORY: + shortness of breath, cough without marked sputum, worse with exertion. No wheezing, hemoptysis. GASTROINTESTINAL: + anorexia, nausea, vomiting, diarrhea. No abdominal pain, melena, BRBPR. GENITOURINARY: No dysuria, frequency, urgency or retention. NEUROLOGICAL: No headache, dizziness, syncope, paralysis, ataxia, numbness or tingling in the extremities, focal weakness, change in bowel or bladder control,seizure. MUSCULOSKELETAL: + muscle, back pain, joint pain or stiffness. HEMATOLOGIC: + Easy bleeding or bruising. LYMPHATICS: No enlarged nodes. No history of splenectomy. PSYCHIATRIC: No history of depression or anxiety. ENDOCRINOLOGIC: + reports of sweating, cold or heat intolerance. No polyuria or polydipsia. ALLERGIES: + history of rhinitis. Vital Signs Vital Signs Vital Signs: 12/27/22 16:52 12/27/22 16:56 12/27/22 17:33 Temperature 98.5 F 100.8 F H Temperature Source Temporal Oral Pulse Rate 79 Respiratory Rate 19 H Respiratory Effort Short of Breath Respiratory Depth Deep Respiratory Pattern Tachypnea Blood Pressure 211/89 H Blood Pressure Mean 129 Pulse Ox 93 Oxygen Delivery Method Room Air Room Air 12/27/22 17:34 12/27/22 17:56 12/27/22 18:00 Temperature 100.3 F H 100.3 F H Temperature Source Oral Oral Pulse Rate 76 75 77 Respiratory Rate 21 H 20 H 21 H Respiratory Effort Respiratory Depth Respiratory Pattern Blood Pressure 204/100 H 221/95 H 221/95 H Blood Pressure Mean 134 137 137 Pulse Ox 92 92 92 Oxygen Delivery Method Room Air Room Air Room Air Weight Weight: 234 lb 9.149 oz Body Mass Index (BMI) 31.8 Physical Exam Narrative Physical Examination: General: Awake, alert, oriented x 3 and cooperative, seated upright in the ED bed, fatigued and ill-appearing, congested, mildly hoarse voice from coughing. Skin: Normal color, normal turgor, no icterus, no cyanosis except occasional staged ecchymoses. HEENT: AT/NC, EOMI, PERRLA, dry MM, no carotid bruits or JVD noted. Lungs: Diffusely diminished, greater bases, proper effort, no evidence of any distress, no rales, ronchi or wheezing. Heart: Currently regular rate and rhythm; no gallop, rub audible. Abdomen: Soft, obese, NTTP, mildly hyperactive BS, difficult to discern distention and HSM given habitus. Extremities: No cyanosis, no clubbing, mild ankle not markedly pitting edema. Neurological: Patient awake, alert, oriented as noted, cognitive function intact; pupils equally reactive to light and accommodation, cranial nerves II-XII grossly normal, moving all 4 extremities, no focal deficits, strength severely global decrease secondary to acute presentation. Psychiatric: Affect appears flat, fatigued, ill-appearing, no acute evidence of depressive or anxiety feelings. Results Lab / Micro Data 12/27/22 17:08 12/27/22 17:08 Labs: Laboratory Results - last 24 hr 12/27/22 17:08: WBC 5.3, RBC 5.00, Hgb 14.9, Hct 45.6, MCV 91.2, MCH 29.8, MCHC 32.7, RDW Std Deviation 45.7 H, RDW Coeff of Peggy 13.6, Plt Count 123 L, MPV 10.7, Immature Gran % (Auto) 0.400, Neut % (Auto) 72.4 H, Lymph % (Auto) 12.7 L,[place] % (Auto) 13.1 H, Eos % (Auto) 0.8, Baso % (Auto) 0.6, Absolute Neuts (auto)3.8, Absolute Lymphs (auto) 0.67 L, Nucleated RBC % 0, Sodium 132 L, Potassium 4.5, Chloride 99, Carbon Dioxide 26.0, Anion Gap 7, BUN 26 H, Creatinine 2.25 H,Estim Creat Clear Calc 30.18, Est GFR (MDRD) Af Amer 37 L, Est GFR (MDRD) Non-Af30 L, BUN/Creatinine Ratio 11.6, Glucose 414 H, Calcium 9.0 Radiology Impression Chest X-Ray 12/27/22 17:04 IMPRESSION: Nonacute portable x-ray examination of the chest. Electronically Signed: Judah Herrera MD (Brooks) at 18:12 EDT Reading Location ID and State: [facility] / NH , Service support , Assessment & Plan Assessment/Plan (1) COVID-19: PLAN: Plan The patient is a 77 y/o M w/ PMHx: CKD stage III unclear subtype, CAD, Hx VF Cardiac arrest s/p pacer/AICD, HFpEF/Ischemic cardiomyopathy, Obesity, Tobacco use, HTN, HLD, Hypothyroidism, Allergic rhintis who presents to the [facility] ED on 12/27/22 with history of several days of increased fatigue, malaise, difficulty even performing tasks with dyspnea worse with exertion with poor appetite and diarrhea with home COVID test on Thursday noted to be positive when patient worsened with concurrent fevers and chills at home prompting eventual EMS call with noted hypoxia for squad of 88% on room air prompting transition to the ED for evaluation. #1. Acute Hypoxia (decreased to 88%on RA, improved with rest) secondary to Acute Viral Syndrome, COVID-19 with resulting Adult Failure to Thrive: Will admit to the [place] telemetry, maintain on COVID precautions, will maintain on oxygen withwean as tolerated to room air, PRN albuterol, HOB, IS parameters w/ pending sputum cultures, respiratory viral panel and urine antigens, will obtain liver profile, D-dimer, procalcitonin, CRP, CPK, Ferritin, LDH, trop and BNP, continuesupportive, will initiate and continue IV decadron x 10 doses, currently presentation with oxygenation </= 94% and not requiring oxygen supplementation but clinically would be high risk given medical history, thus will continue withadministration of given IV remdesivir with currently CrCl >/= 30 but will closely monitor CMP daily to assure creatinine clearance remains >/= 30, PT/OT/CM consultations for discharge planning. #2. CAD with history of V-fib cardiac arrest: Status post pacer/AICD placement,will continue aspirin, Plavix, statin, Coreg home regimen, not on GRETCHEN inhibitorsor ARB per review of current list. Of note recent 10/22/2022 stress testing noted to be abnormal with reduced EF with basal inferior, mid inferior and basalinferior lateral infarct but no ischemia noted suspected likely with prior insults with arrest. Last interrogation noted 10/10/2022. Will continue aspirin, Plavix, Coreg, statin therapy, not on GRETCHEN inhibitor/ARB nor diuretic therapy. #3. HFpEF/Ischemic cardiomyopathy: 02/02/2022 echocardiogram with normal LV size, EF 55%, mild segmental systolic dysfunction, LA mildly enlarged, try sinus/trileaflet aortic valve, but bubble contrast study negative compared to previous ventricular function similar. Given history we will very cautiously hydrate as needed, continue aspirin, Plavix, Coreg, statin therapy, not on GRETCHEN inhibitor/ARB nor diuretic therapy. Given COVID certainly could pulse dose IV Lasix if necessary if becomes fluid overloaded. #4. Chronic Kidney Disease Stage III, unclear subtype with solitary kidney: Admission BUN/Cr 26/2.25, baseline renal function primarily 1.8-2.4 although most recently 10/27/2022 creatinine 1.97, repeat CMP in AM. #5. Diabetes mellitus type II with hyperglycemia, poorly controlled: Hold oral home regimen, continue home insulin regimen, ADA diet if able to tolerate otherwise with acute presentation may de-escalate to clears and advance slowly as tolerated, may need to adjust insulin regimen given planned steroid usage as noted #1, maintain on overlapping accu checks w/ ISS. Most recently reviewed HgbA1c 09/05/21 11.6%, will repeat at this time as expect notable hyperglycemia with steroid usage also. #6. Hypertension, uncontrolled: BP significantly elevated upon ED arrival, potentially related with acute presentation as noted #1, will for now continue home regimen including Coreg with additional oral regimen pending response to treatment of acute presentation but in the interim we will have PRN hydralazine with dose x1 to be administered in the ED now. #7. Hyperlipidemia: We will continue patient on statin therapy. #8. Hypothyroidism: Continue home synthroid regimen. #9. Obesity: Weight loss and lifestyle changes encouraged. #10. Tobacco Abuse: Encouraged continued tobacco cessation. #11. Allergic rhinitis: We will verify patient allergy regimen as from current list taking fexofenadine with pseudoephedrine and would prefer avoidance of taking this frequently. #12. DVT prophylaxis: Lovenox 30 mg SC BID per COVID order set based on BMI andrenal function. #13. CODE status: Patient SAFIA is his significant who is present and also his son and living will is reportedly in place. Discussed CODE status at length including difference between FULL code, DNR-CCA and DNR-CC status. Following discussions about the differences in these status, requested Full Code status. Amenable to BIPAP/airvo/antiviral regimen per discussions. Advanced Care Planning Face to Face Time: 16 minutes. Charges/Coding Visit Charges Inpatient E&M: 43821 Init Hosp L3 Procedures Hospitalists Procedures: 64356 Advncd Care Plan 30 Min 12/27/22 1983 <Electronically signed by Gela Salinas MD> Cosigner Signature (if applicable): CC: Dr. Gela Salinas MD; Dr. 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 Sustained ventricular tachycardia chronic History of implantable cardi ac defibrillator (ICD) April 12, 2012 chronic 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 Sustained ventricular tachycardia [facility] Work Phone: 1(518) 206-920201-07-2013 Evaluation note* Diagnosis Onset Date Resolution Status History of implantable cardi ac defibrillator (ICD) April 12, 2012 chronic Ischemic 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 Sustained ventricular tachycardia chronic Brain TIA acute History of diabetes mellitus acute History of hypertension acut e Chronic kidney disease chron [facility] Work Phone: 1(901) 596-230601-07-2013 Evaluation note* Diagnosis Onset Date Resolution Status History of implantable cardi ac defibrillator (ICD) April 12, 2012 chronic Ischemic 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 Sustained ventricular tachycardia chronic Brain TIA resolved History of implantable cardi ac defibrillator (ICD) April 12, 2012 chronic 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 Sustained ventricular tachycardia [facility] Work Phone: 1([phone]) 648-548801-07-2013 Evaluation note* Diagnosis Onset Date Resolution Status History of implantable cardi ac defibrillator (ICD) April 12, 2012 chronic Ischemic 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 Sustained ventricular tachycardia chronic Acute dehydration acute Adult failure to thrive acut e COVID-19 acute Hyperglycemia due to diabetes mellitus acute Weakness acute Chronic hypertension [facility] Work Phone: Discharge summary Author Amanda [facility] August 08, 2023 12:20pm Note Date/Time August 08, 2023 12:19p [facility] Medical Records Department [address] [place] [id number] Instructions for Home/Discharge Instructions 08/08/23 1218 MR#: [id number] Acct: [id number] Name: PARK SOUSA Rep #:[id number] : 1945 77 From: Amanda Wick MD PCP: Dr. Nathen Chang MD Status:ADM CHAIM Discharge Instructions Diet Discharge Diet: Low fat / Low cholesterol Activity Discharge Activity: Return to Normal Activity Weight Bearing Status: Weight bearing as tolerated Dressing / Incision Call your doctor if you observe: Fever of 101 or Higher, Shortness of breath, Dizziness and Chest pain Follow Up Care Test Results: Test results from this visit will be discussed in further detail at your follow- up appointment, if applicable. Discharge Plan Admission Admit Date/Time: 08/06/23 22:27 Primary Reason for Your Visit: URTI, rhinovirus Attending Provider: Amanda Wick Primary Care Provider: Nathen Chang Consulting Providers: Gela Salinas Instructions Patient Instructions: Understanding the Cold Virus Discharge Orders/Prescriptions Prescriptions: Continued levothyroxine 100 mcg capsule 100 mcg capsule 100 mcg PO QDAY cholecalciferol (vitamin D3) 125 mcg (5,000 unit) capsule 125 mcg PO DAILY fexofenadine-pseudoephedrine 1 TAB.SR tablet extended release 24 hr 1 tab.sr PO DAILY Hold Instructions: Advised to take it as needed for nasal congestion, cold symptoms/allergic rhinitis Patient Comments: DIRECTED insulin glargine 100 unit/mL (3 mL) Insulin Pen 63 unit SUBCUT QPM acetaminophen [Tylenol Extra Strength] 500 mg tablet 1,000 mg PO Q6H PRN (Reason: pain) Qty: 20 0RF rosuvastatin 20 mg tablet 20 mg PO DAILY Qty: 30 2RF insulin lispro [Humalog KwikPen Insulin] 100 unit/mL insulin pen 50 unit subcut TIDAC pyridoxine (vitamin B6) 50 mg tablet 50 mg PO TID Patient Comments: 1 (one) Tablet three times daily with meals magnesium oxide 400 mg magnesium tablet 400 mg PO QHS Patient Comments: TAKE 1 TABLET BY MOUTH AT BEDTIME clopidogrel 75 mg tablet 75 mg PO DAILY carvedilol 25 mg tablet 25 mg PO BID Qty: 180 3RF Eliquis 5 mg tablet 5 mg PO BID Qty: 180 3RF Discontinued dexamethasone 6 mg tablet 6 mg PO DAILY 7 Days Qty: 7 0RF Referrals / Follow Up: Nathen Chang MD [Primary Care Provider] - Within 2 Weeks Disposition Disposition (needs filled in before D/C Order can be placed): Home, Self Care 08/08/23 1220<Electronically signed by Amanda Wick MD>Amanda Wick MD CC: Dr. Gela Salinas MD; Dr. Nathen Chang MD ~ Signed [facility] Work Phone: Discharge summary Author [facility] August 08, 2023 12:56pm Note Date/Time August 08, 2023 12:22p [facility] Medical Records Department [address] [place] [id number] Discharge Summary 08/08/23 1222 MR#: [id number] Acct: [id number] Name: PARK SOUSA Rep #:[id number] : 1945 77 From: Amanda Wick MD PCP: Dr. Nathen Chang MD Status:ADM CHAIM [id number] Prov[facility] Date of Admission: 08/06/23 Date of Discharge: 08/08/23 Primary Care Physician: Dr. Nathen Chang MD Reason For Visit: VIRAL SYNDROME, ADULT FTT Diagnosis Discharge Diagnosis (1) Viral syndrome: Status: Acute Code(s): B34.9 - Viral infection, unspecified Plan #Hypoxia due to acute viral URTI from rhinovirus infection * Patient now on room air. Still complains of wheezing and coughing. He had family members who have similar symptoms. Chest x-ray showed no evidence of superimposed pneumonia. Breathing treatments bronchodilators. Titrate oxygen to maintain saturation above 90%. * Respiratory panel positive for rhinovirus * Hydrate gently with IV fluids. * #Thrombocytopenia: Platelets at 110 today. Was 125 yesterday. May be due to acute viral infection. Will continue to monitor. #Paroxysmal A-fib: On Eliquis and Coreg. #Type 2 diabetes mellitus: On Lantus. Insulin sliding scale. Accu-Cheks ACHS. #Heart failure preserved ejection fraction: S/p ICD insertion. #History of CAD: Has history of cardiac arrest and is s/p ICD. On Plavix as well as Coreg and statin. #CKD stage III: Has a solitary kidney. Creatinine is 2.04 today, from 2.28 on admission. Baseline is around 1.7. Will monitor. #Hypertension: On Coreg. IV hydralazine as needed #Type 2 diabetes mellitus: On Lantus. Insulin sliding scale. Tactics ACHS. #Hypothyroidism: On Synthroid #Hyperlipidemia: On statin #DVT prophylaxis: on eliquis. Medications at Discharge Home Medications fexofenadine-pseudoephedrine ER 180 mg-240 mg tablet,ext.release 24 hr 1 tab.sr PO DAILY allergies 01/20/16 levothyroxine 100 mcg capsule 100 mcg PO QDAY thyroid 08/20/17 cholecalciferol (vitamin D3) 125 mcg (5,000 unit) capsule 125 mcg PO DAILY vitamin 01/15/21 acetaminophen 500 mg tablet (Tylenol Extra Strength) 1,000 mg (2 x 500 mg) PO Q6H PRN pain #20 tabs 10/22/21 insulin glargine 100 unit/mL (3 mL) subcutaneous pen 63 unit subcut QPM [id number]/19/22 rosuvastatin 20 mg tablet 20 mg PO DAILY #30 tabs 02/03/22 insulin lispro 100 unit/mL subcutaneous pen (Humalog KwikPen (U-100) Insulin) 50unit subcut TIDAC 07/20/22 magnesium oxide 400 mg PO QHS 12/27/22 pyridoxine (vitamin B6) 50 mg tablet 50 mg PO TID 12/27/22 carvedilol 25 mg tablet 25 mg PO BID #180 tabs 01/13/23 apixaban 5 mg tablet (Eliquis) 5 mg PO BID #180 tabs 04/09/23 clopidogrel 75 mg tablet 75 mg PO DAILY 08/06/23 Hospital Course Operations None Procedures None Summary of Care Provided Minutes Spent on Discharge: 45 Hospital Course: Patient is a 77-year-old male with a past medical history as outlined was admitted through the ED on 08/06/2023 with a complaint of cough, congestion and shortness of breath. His symptoms had started a few days prior to his coming and and he had assisted headache and rhinorrhea as well. His girlfriend and grandchildren had had similar complaints. His symptoms were not improving so hedecided to come into the ED. He said he had not been eating and drinking well at home also. Chest x-ray showed nonspecific mild bibasilar interstitial thickening of uncertain chronicity. Respiratory panel was positive for rhinovirus and COVID as well as influenza and RSV screens were negative. He wasadmitted and managed for hypoxia due to upper respiratory tract infection from rhinovirus infection. Patient was hydrated with IV fluids and work with physical therapy. His symptoms did improve and he felt better. He was weaned off of oxygen. He remained stable and was discharged home on 08/08/2023. He had walking pulse ox which showed that he did not require any oxygen. Patient seen and examined prior to discharge. He had no complaints and had an uneventful review of systems otherwise negative. Labs and vitals reviewed. Home medication reviewed and reconciled. Physical Exam Const alert, oriented x3 and no apparent distress General Appearance: cooperative, comfortable and well kempt HEENT normocephalic, head/scalp atraumatic, hearing grossly normal bilaterally and moist oral mucous membranes Mouth: oral and palatal mucosa normal Eyes PERRL, EOMs intact bilaterally and conjunctivae normal Neck no lymphadenopathy and supple Lymph Lymphatic: no lymphadenopathy noted and no lymphedema noted Resp Resp Narrative: Moderately diminished breath sounds bibasilarly, no wheezes or crackles. On room air. Cardio regular rate, regular rhythm, S1 normal heart sound, S2 normal heart sound and no murmurs GI normal to inspection, nondistended, normoactive bowel sounds, soft to palpation,non-tender and non-distended Extremity normal to inspection, full ROM, normal capillary refill, no clubbing, cyanosis or edema and no calf tenderness General Extremity: no tenderness to palpation of joints or extremities Skin no rashes or lesions noted General Skin Exam: no breakdown Neuro oriented x3, CN's II-XII intact bilaterally, moves all extremities and no focal motor deficits Sensorium / Orientation: awake and alert Motor Exam: strength 5/5 throughout and general weakness Psych thought process normal and cooperative Appearance: appropriate Weight / BMI Weight Weight: 243 lb 13.3 oz Body Mass Index (BMI) 33.0 ABG / Lab / Microbiology Data 08/08/23 06:02 08/08/23 06:02 Laboratory: Laboratory Results - last 24 hr 08/07/23 16:29: POC Glucose 305 H 08/07/23 21:28: POC Glucose 384 H 08/08/23 06:02: WBC 5.7, RBC 4.24 L, Hgb 12.2 L, Hct 38.4 L, MCV 90.6, MCH 28.8,MCHC 31.8 L, RDW Std Deviation 47.0 H, RDW Coeff of Peggy 14.2, Plt Count 112 L, MPV 10.5, Immature Gran % (Auto) 0.300, Neut % (Auto) 58.5, Lymph % (Auto) 22.6,[place] % (Auto) 16.2 H, Eos % (Auto) 1.9, Baso % (Auto) 0.5, Absolute Neuts (auto)3.4, Absolute Lymphs (auto) 1.30, Nucleated RBC % 0, Sodium 136, Potassium 3.8, Chloride 105, Carbon Dioxide 26.0, Anion Gap 5, BUN 25 H, Creatinine 2.01 H, Estim Creat Clear Calc 39.53, Est GFR (MDRD) Af Amer 42 L, Est GFR (MDRD) Non-Af34 L, BUN/Creatinine Ratio 12.4, Glucose 260 H, Calcium 8.8 08/08/23 06:38: POC Glucose 221 H Microbiology: Microbiology 08/06/23 23:40 Mucosa - Nasopharyngeal Respiratory Panel (PCR) - Final Rhinovirus 08/06/23 23:58 Urine, Random Streptococcus pneumoniae Antigen (M - Final 08/06/23 23:58 Urine, Random Legionella Antigen - Final 08/06/23 20:50 Mucosa - Nose SARS-CoV-2, Influenza & RSV (PCR) - Final Radiography Diagnostic Testing: Radiology Impression Chest X-Ray 08/07/23 05:55 IMPRESSION: No acute abnormality is seen. Electronically Signed: Juan Ramon Jack MD at 13:21 EDT , D/C Instructions Discharge Diet: Low fat / Low cholesterol Discharge Activity: Return to Normal Activity Weight Bearing Status: Weight bearing as tolerated Call your doctor if you observe: Fever of 101 or Higher, Shortness of breath, Dizziness and Chest pain Meaningful Use Info Meaningful Use Meaningful Use Diagnoses (Choose all that apply): None applicable Ischemic Stroke Statin Dosing Therapy Reference: STATIN DOSE THERAPY REFERENCE: * Patients > 75 years receive moderate or high dose statin therapy. * Patients 75 years or YOUNGER should receive HIGH intensity statin dose unless contraindicated. You will be required to document reason for non-treatment if statin daily dose does not meet guidelines. HIGH DOSE STATIN THERAPY DAILY Atorvastatin > than or = to 40 mg Rosuvastatin > than or = to 20 mg Amlodipine + Atorvastatin > than or = to 2.5/40 mg Ezetimibe + Simvastatin 10/80 mg Simvastatin 80mg Discharge Plan Admission Admit Date/Time: 08/06/23 22:27 Primary Reason for Your Visit: URTI, rhinovirus Attending Provider: Amanda Wick Primary Care Provider: Nathen Chang Consulting Providers: Gela Salinas Instructions Patient Instructions: Understanding the Cold Virus Discharge Orders/Prescriptions Prescriptions: Continued levothyroxine 100 mcg capsule 100 mcg capsule 100 mcg PO QDAY cholecalciferol (vitamin D3) 125 mcg (5,000 unit) capsule 125 mcg PO DAILY fexofenadine-pseudoephedrine 1 TAB.SR tablet extended release 24 hr 1 tab.sr PO DAILY Hold Instructions: Advised to take it as needed for nasal congestion, cold symptoms/allergic rhinitis Patient Comments: DIRECTED insulin glargine 100 unit/mL (3 mL) Insulin Pen 63 unit SUBCUT QPM acetaminophen [Tylenol Extra Strength] 500 mg tablet 1,000 mg PO Q6H PRN (Reason: pain) Qty: 20 0RF rosuvastatin 20 mg tablet 20 mg PO DAILY Qty: 30 2RF insulin lispro [Humalog KwikPen Insulin] 100 unit/mL insulin pen 50 unit subcut TIDAC pyridoxine (vitamin B6) 50 mg tablet 50 mg PO TID Patient Comments: 1 (one) Tablet three times daily with meals magnesium oxide 400 mg magnesium tablet 400 mg PO QHS Patient Comments: TAKE 1 TABLET BY MOUTH AT BEDTIME clopidogrel 75 mg tablet 75 mg PO DAILY carvedilol 25 mg tablet 25 mg PO BID Qty: 180 3RF Eliquis 5 mg tablet 5 mg PO BID Qty: 180 3RF Discontinued dexamethasone 6 mg tablet 6 mg PO DAILY 7 Days Qty: 7 0RF Referrals / Follow Up: Nathen Chang MD [Primary Care Provider] - Within 2 Weeks Disposition Disposition (needs filled in before D/C Order can be placed): Home, Self Care Charges/Coding Visit Charges Inpatient E&M: 15357 Disch Hosp >30min 08/08/23 1256 <Electronically signed by Amanda Wick MD> Cosigner Signature (if applicable): CC: Dr. Nathen Chang MD; Dr. Amanda Wick MD~ Signed [facility] Work Phone: Evaluation noteNo assessment information available [facility] Work Phone: Evaluation note* Diagnosis Onset Date Resolution Status Adult failure to thrive acut e Chronic anticoagulation acut e Generalized weakness acute Hyperglycemia due to diabetes mellitus acute Unable to ambulate acute Viral syndrome acute Chronic kidney disease chron ic [facility] Work Phone: Evaluation note* Diagnosis Onset Date Resolution Status Adult failure to thrive acut e Chronic anticoagulation acut e Generalized weakness acute Hyperglycemia due to diabetes mellitus acute Unable to ambulate acute Viral syndrome acute Chronic kidney disease chron ic Acute CHF (congestive heart failure) acute Acute respiratory insufficiency acute Adult failure to thrive acut e Pneumonia acute Viral syndrome acute Weakness acute [facility] Work Phone: History and physical note Author Gela Salinas [facility] August 06, 2023 11:20pm Note Date/Time August 06, 2023 10:27p [facility] Medical Records Department [address] [place] [address] H&P Exam - Hospitalist 08/06/232226 MR#: [id number] Acct: [id number] Name: PARK SOUSA Rep #:[id number] : 1945 77 From: Gela Salinas MD PCP: Dr. Nathen Chang MD Status:ADM CHAIM [id number] - General General Date of Admission: 08/06/23 Date of Service: 08/06/23 Chief Complaint: Cough, congestion, dyspnea, worsening. HPI Narrative The patient is a 77 y/o M w/ PMHx: Suspected PAF, Obesity, Presumed HFpEF, CAD/Ischemic cardiomyopathy s/p AICD/pacemaker, HTN, HLD, Diabetes mellitus typeII, Hx VF Cardiac arrest, Former tobacco use, CKD stage III unclear subtype withsolitary kidney, Hypothyroidism who presents to the [facility] ED on 08/06/23 with history of cold-like symptoms starting over the last 3 days with mild headache, congestion, rhinorrhea, sore throat, chills, nonproductive cough, increased sneezing with mild dyspnea worse with exertion not improving with his girlfriendhaving similar symptoms although she seems to have improved but on day of presentation he had significant increased weakness and debility having difficulty even getting up prompting EMS call. He has noted that he is been having elevated blood sugars with poor oral intake recently. Workup in the ED included T97.5, heart rate 70, BP 167/76, respiratory rate 32, 93% on room air, CBC with WBC 5.5, hemoglobin 13.4, platelet 125 with lymphopenia, BMP with BUN/woawzgnodi08/2.28, glucose 344, acetone negative, chest x-ray with nonspecific mild bibasilar interstitial thickening of uncertain chronicity more pronounced on theleft possibly inflammatory changes, rapid SARS COVID/influenza/RSV negative. Inthe ED patient ministered 1 L normal saline as well as albuterol and DuoNeb therapy. 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) Solitary kidney Sustained ventricular tachycardia Ventricular fibrillation Home Medications fexofenadine-pseudoephedrine ER 180 mg-240 mg tablet,ext.release 24 hr 1 tab.sr PO DAILY allergies 01/20/16 [History Last Taken Unknown] levothyroxine 100 mcg capsule 100 mcg PO QDAY thyroid 08/20/17 [History Last Taken 12/22/19] cholecalciferol (vitamin D3) 125 mcg (5,000 unit) capsule 125 mcg PO DAILY vitamin 01/15/21 [History Last Taken Unknown] acetaminophen 500 mg tablet (Tylenol Extra Strength) 1,000 mg (2 x 500 mg) PO Q6H PRN pain #20 tabs 10/22/21 [Rx Last Taken Unknown] insulin glargine 100 unit/mL (3 mL) subcutaneous pen 63 unit subcut QPM [id number]/19/22 [History Last Taken Unknown] rosuvastatin 20 mg tablet 20 mg PO DAILY #30 tabs 02/03/22 [Rx Last Taken Unknown] insulin lispro 100 unit/mL subcutaneous pen (Humalog KwikPen (U-100) Insulin) 50unit subcut TIDAC 07/20/22 [History Last Taken Unknown] magnesium oxide 400 mg PO QHS 12/27/22 [History Last Taken Unknown] pyridoxine (vitamin B6) 50 mg tablet 50 mg PO TID 12/27/22 [History Last Taken Unknown] dexamethasone 6 mg tablet 6 mg PO DAILY 7 days #7 tabs 12/29/22 [Rx Last Taken Unknown] carvedilol 25 mg tablet 25 mg PO BID #180 tabs 01/13/23 [Rx Last Taken Unknown] apixaban 5 mg tablet (Eliquis) 5 mg PO BID #180 tabs 04/09/23 [Rx Last Taken Unknown] clopidogrel 75 mg tablet 75 mg PO DAILY 08/06/23 [History Last Taken Unknown] Allergy/AdvReac Type Severity Reaction Status Date / Time amiodarone AdvReac Severe significant Verified 12/27/22 16:52 effect on lung function per PFT 09/19/17 Family History Father Colon cancer Mother No problems noted. Surgical History History of electrophysiologic study (10/21/12) History of implantable cardiac defibrillator (ICD) (04/12/12) History of left heart catheterization (01/21/16) Hx of colonoscopy Social History household members: significant other Smoking Status: Former smoker alcohol intake: never substance use type: does not use ROS ROS Narrative Admission Review of Systems: CONSTITUTIONAL: No weight loss, fever, chills, +weakness or fatigue. HEENT: + Congestion, rhinorrhea, sore throat, sneezing, headache. Eyes: No visual loss, blurred vision, double vision or yellow sclerae. Ears, Nose, Throat: No hearing loss. SKIN: No rash or itching, lesions, wounds except + occasional staged ecchymoses. CARDIOVASCULAR: No chest pain, chest pressure or chest discomfort, palpitations,edema, orthopnea, syncopal events. RESPIRATORY: + shortness of breath, cough without marked sputum, worse with exertion. No wheezing, hemoptysis. GASTROINTESTINAL: + anorexia. No nausea, vomiting, diarrhea, abdominal pain, melena, BRBPR. GENITOURINARY: No dysuria, frequency, urgency or retention. NEUROLOGICAL: + Headache. No dizziness, syncope, paralysis, ataxia, numbness or tingling in the extremities, focal weakness, change in bowel or bladder control,seizure. MUSCULOSKELETAL: + muscle, back pain, joint pain or stiffness. HEMATOLOGIC: + Easy bleeding or bruising. LYMPHATICS: No enlarged nodes. No history of splenectomy. PSYCHIATRIC: No history of depression or anxiety. ENDOCRINOLOGIC: + reports of sweating, cold or heat intolerance. No polyuria or polydipsia. ALLERGIES: + history of rhinitis. Vital Signs Vital Signs Vital Signs: 08/06/23 20:27 08/06/23 20:27 08/06/23 20:31 Temperature 97.5 F L 97.9 F Temperature Source Temporal Temporal Pulse Rate 70 73 Respiratory Rate 32 H 30 H Respiratory Effort Short of Breath Respiratory Depth Normal Respiratory Pattern Tachypnea Blood Pressure 167/76 H 167/76 H Blood Pressure Mean 106 106 Pulse Ox 93 93 Oxygen Delivery Method Room Air Room Air Room Air 08/06/23 21:31 08/06/23 21:28 08/06/23 22:00 Temperature 98.2 F 97.8 F Temperature Source Temporal Temporal Pulse Rate 69 71 69 Respiratory Rate 26 H 22 H 26 H Respiratory Effort Respiratory Depth Respiratory Pattern Tachypnea Blood Pressure 180/121 H 170/101 H Blood Pressure Mean 140 124 Pulse Ox 98 94 Oxygen Delivery Method Room Air Room Air Weight Weight: 246 lb 4.101 oz Body Mass Index (BMI) 33.4 Physical Exam Narrative Physical Examination: General: Awake, alert, oriented x 3 and cooperative, seated upright in the ED bed, fatigued, congested, mildly hoarse voice from coughing, coughing during evaluation but appears dry/non-moist in nature. Skin: Normal color, normal turgor, no icterus, no cyanosis except occasional staged ecchymoses. HEENT: AT/NC, EOMI, PERRLA, dry MM, no carotid bruits, difficult to assess JVD given thickened neck. Lungs: Diffusely diminished, greater bases, proper effort, no evidence of any distress, occasional end expiratory wheeze. No rales, ronchi. Heart: Currently regular rate and rhythm; no gallop, rub audible. Abdomen: Soft, obese, NTTP, mildly hyperactive BS, difficult to discern distention and HSM given habitus. Extremities: No cyanosis, no clubbing, mild ankle not markedly pitting edema. Neurological: Patient awake, alert, oriented as noted, cognitive function intact; pupils equally reactive to light and accommodation, cranial nerves II-XII grossly normal, moving all 4 extremities, no focal deficits, strength moderately to severely global decrease secondary to acute presentation. Psychiatric: Affect appears fatigued, no acute evidence of depressive or anxietyfeelings. Results Lab / Micro Data 08/06/23 20:30 08/06/23 20:30 Labs: Laboratory Results - last 24 hr 08/06/23 20:30: WBC 5.5, RBC 4.52 L, Hgb 13.4, Hct 40.5, MCV 89.6, MCH 29.6, MCHC 33.1, RDW Std Deviation 45.4 H, RDW Coeff of Peggy 14.1, Plt Count 125 L, MPV10.8, Immature Gran % (Auto) 0.500, Neut % (Auto) 67.9, Lymph % (Auto) 14.8 L, [place] % (Auto) 13.7 H, Eos % (Auto) 2.6, Baso % (Auto) 0.5, Absolute Neuts (auto)3.7, Absolute Lymphs (auto) 0.81 L, Nucleated RBC % 0, Sodium 137, Potassium 4.3, Chloride 104, Carbon Dioxide 27.0, Anion Gap 6, BUN 27 H, Creatinine 2.28 H, Estim Creat Clear Calc 35.02, Est GFR (MDRD) Af Amer 36 L, Est GFR (MDRD) Non-Af 30 L, BUN/Creatinine Ratio 11.8, Glucose 344 H, Calcium 8.7 08/06/23 20:50: Acetone Level NEGATIVE Micro: Microbiology 08/06/23 20:50 Mucosa - Nose SARS-CoV-2, Influenza & RSV (PCR) - Final Imaging Radiology Impression Chest X-Ray 08/06/23 21:05 IMPRESSION: Mild nonspecific bibasilar interstitial thickening of uncertain chronicity more pronounced on the left. Cannot exclude inflammatory changes. Clinical correlation is recommended as well as comparison with prior studies when available assessed for interval changes Electronically Signed: Guevara Crowder MD at 21:31 EDT , Assessment & Plan Assessment/Plan (1) Viral syndrome: (2) Adult failure to thrive: PLAN: Plan The patient is a 77 y/o M w/ PMHx: Suspected PAF, Obesity, Presumed HFpEF, CAD/Ischemic cardiomyopathy s/p AICD/pacemaker, HTN, HLD, Diabetes mellitus typeII, Hx VF Cardiac arrest, Former tobacco use, CKD stage III unclear subtype withsolitary kidney, Hypothyroidism who presents to the [facility] ED on 08/06/23 with history of cold-like symptoms starting over the last 3 days with mild headache, congestion, rhinorrhea, sore throat, chills, nonproductive cough, increased sneezing with mild dyspnea worse with exertion not improving with his girlfriendhaving similar symptoms although she seems to have improved but on day of presentation he had significant increased weakness and debility having difficulty even getting up prompting EMS call. He has noted that he is been having elevated blood sugars with poor oral intake recently. #1. Adult FTT, Debility secondary to Suspected Acute Viral Syndrome: Given significant debility will admit to medical surgical floor, maintain on fall precautions, maintain on ATC budesonide therapy, PRN albuterol, HOB, IS parameters, if able obtain sputum Cx, obtain full respiratory viral panel, procalcitonin, monitor for development of super imposed bacterial pneumonia, IVFs overnight with repeat AM CXR, encourage OOB, PT/OT/CM consultation for discharge planning. #2. Acute thrombocytopenia: Suspect reactive given acute viral syndrome, admission platelet 125, baseline previously primarily normal range but has occasionally been thrombocytopenic in the past but unclear circumstances, continueto closely trend CBC. #3. Suspected PAF: Patient is uncertain why he has been started on Eliquis, will continue Coreg and although uncertain suspect likely underlying A-fib as hedenies any clot including DVT or PE history. #4. Diabetes mellitus type II with hyperglycemia: Will continue home insulin regimen, ADA diet, accu checks w/ ISS. #5. Presumed HFpEF/Ischemic cardiomyopathy: 02/02/2022 echocardiogram with normal LV size, EF 55%, mild segmental systolic dysfunction, mildly enlarged LA,try sinus/trileaflet aortic valve, bubble contrast AT negative for shunt but patient is status post AICD placement thus EF could have certainly been reduced previously, continue patient Plavix, Eliquis, Coreg and statin therapy. #6. CAD with history of V-fib cardiac arrest: We will continue patient apixabanand Plavix, continue Coreg and statin therapy, not on GRETCHEN or/ARB possibly secondary to renal disease. #7. Chronic Kidney Disease Stage III, unclear subtype with solitary kidney: Admission BUN/Cr 27/2.28, GFR upon current presentation 30, baseline renal function primarily 1.7-2.4 with GFR primarily 30-40 range, repeat BMP in AM. #8. Hypertension: Continue home regimen including Coreg, PRN hydralazine. #9. Diabetes mellitus type II: Hold oral home regimen, continue home insulin regimen, ADA diet, accu checks w/ ISS. #10. Hypothyroidism: We will can patient home levothyroxine regimen. #11. Hyperlipidemia: We will continue patient home statin therapy. #12. Allergic rhinitis: Patient on chronic fexofenadine hydrochloride however it appears he also takes pseudoephedrine combination, strongly encourage this fiona avoided chronically if able. #13. Obesity: Weight loss and lifestyle changes encouraged. #14. Former tobacco use: Encourage continued tobacco cessation. #15. DVT prophylaxis: We will continue patient on Eliquis regimen. #16. CODE status: Patient HCPOA and living will are not in place but he notes his significant other would be his decision-maker if necessary. Discussed CODE status at length including difference between FULL code, DNR-CCA and DNR-CC status. Following discussions about the differences in these status, requested Full Code status. Advanced Care Planning Face to Face Time: 16 minutes. Charges/Coding Visit Charges Inpatient E&M: 58654 Init Hosp L2 Procedures Hospitalists Procedures: 05063 Advncd Care Plan 30 Min 08/06/23 2320 <Electronically signed by Gela Salinas MD> Cosigner Signature (if applicable): CC: Dr. Gela Salinas MD; Dr. Nathen Chang MD~ Signed [facility] Work Phone: Hospital Discharge instructions Additional Instructions His lab work and imaging did not show any severe abnormalities. He has renal insufficiency which appears to be chronic. I do encourage him to drink more fluids. His blood sugar is elevated but does not meet criteria for DKA or other diabetic crisis. It is important that he takes his insulin as prescribed. There is no sign of infection on his work-up today. I would recommend return to the ER if he has any further weakness, falls or progression of his symptoms. Otherwise he should be fine to follow-up with his primary care doctor.[facility] Work Phone: Reason for referral (narrative)No reason for referral information availableWooAshtab[facility] Work Phone: Summary Purpose Family History No Family History Records Found Relationship Condition Age at Onset Recorded Date/T miracle father Malignant neoplasm of colon Unknown Advance Directives No Advanced Directives Records Found Advance Directive Response Recorded Date/ Time Advance Directives No December 9:27am Living Will No October 22, 2021 6:29pm Power of Vocational Training Teacher No October 22 6:29pm Advance Directive Response Recorded Date/ Time Advance Directives No December 9:27am Living Will No November 06, 2021 10:52pm Power of Vocational Training Teacher No November 06 10:52pm Advance Directive Response Recorded Date/ Time Advance Directives No December 9:27am Living Will No February 02 11:55pm Power of Vocational Training Teacher No February 02, 2022 11:55pm Advance Directive Response Recorded Date/ Time Advance Directives No December 8:27am Living Will No February 02 10:55pm Power of Vocational Training Teacher No February 02, 2022 10:55pm Advance Directive Response Recorded Date/ Time Advance Directives No December 9:27am Living Will No July 20, 2022 1:09am Power of Vocational Training Teacher No July 20 1:09am Advance Directive Response Recorded Date/ Time Advance Directives No December 9:27am Living Will No December 27, 2022 4:57pm Power of Vocational Training Teacher No December 4:57pm Advance Directive Response Recorded Date/ Time Advance Directives No December 8:27am Living Will No December 27, 2022 8:41pm Power of Vocational Training Teacher No December 8:41pm Advance Directive Response Recorded Date/ Time Advance Directives No December 9:27am Living Will No August 06, 2023 8: 27pm Power of Vocational Training Teacher No August 06, 2023 8:27pm Advance Directive Response Recorded Date/ Time Advance Directives No December 9:27am Living Will No August 06, 2023 11 :58pm Power of Vocational Training Teacher No August 06, 2023 11:58pm Advance Directive Response Recorded Date/ Time Advance Directives No December 9:27am Living Will No August 12, 2023 7: 44am Power of Vocational Training Teacher No August 12, 2023 7:44am Advance Directive Response Recorded Date/ Time Advance Directives No December 9:27am Living Will No August 13, 2023 11 :49pm Power of Vocational Training Teacher No August 13, 2023 11:49pm Advance Directive Response Recorded Date/ Time Advance Directives No December 9:27am Chief Complaint and Reason for Visit Chief Complaint 3 mos remote ICD f/u hypotension Reason for Visit History of implantab le cardiac defibrillator (ICD) Ischemic cardiomyopathy Sustained ventricular tachycardia Chief Complaint 3 mos remote ICD f/u hypotension 3 mos remote ICD f/u low blood sugar Reason for Visit History of implantab le cardiac defibrillator (ICD) Ischemic cardiomyopathy Sustained ventricular tachycardia History of implantable cardiac defibrillator (ICD) Ischemic cardiomyopathy Sustained ventricular tachycardia Chief Complaint hypotension 3 mos remote ICD f/u low blood sugar TIA TIA (cardiology) Reason for Visit History of implantab le cardiac defibrillator (ICD) Ischemic cardiomyopathy Sustained ventricular tachycardia Brain TIA History of diabetes mellitus History of hypertension Chronic kidney disease Chief Complaint 3 mos remote ICD f/u low blood sugar TIA TIA (cardiology) TIA (cardiology) 3 mos remote ICD f/u Transient cerebral ischemic attack, unspecified Reason for Visit History of implantab le cardiac defibrillator (ICD) Ischemic cardiomyopathy Sustained ventricular tachycardia Brain TIA History of implantable cardiac defibrillator (ICD) Ischemic cardiomyopathy Sustained ventricular tachycardia Chief Complaint 3 mos remote ICD f/u PVD Reason for Visit History of implantab le cardiac defibrillator (ICD) Ischemic cardiomyopathy Sustained ventricular tachycardia Chief Complaint 3 mos remote ICD f/u PVD hyperglycemia Reason for Visit History of implantab le cardiac defibrillator (ICD) Ischemic cardiomyopathy Sustained ventricular tachycardia Chief Complaint 3 mos remote ICD f/u PVD hyperglycemia Remote ALERT for VT Reason for Visit History of implantab le cardiac defibrillator (ICD) Ischemic cardiomyopathy Sustained ventricular tachycardia History of implantable cardiac defibrillator (ICD) Ischemic cardiomyopathy Sustained ventricular tachycardia Chief Complaint PVD hyperglycemia Remote ALERT for VT remote ALERT for VT ATHEROSCLEROTIC HEART DISEASE ; SVT ATHEROSCLEROTIC HEART DISEASE ; SVT Amb Documentation Reason for Visit History of implantab le cardiac defibrillator (ICD) Ischemic cardiomyopathy Sustained ventricular tachycardia History of implantable cardiac defibrillator (ICD) Ischemic cardiomyopathy Sustained ventricular tachycardia Chief Complaint remote ALERT for VT ATHEROSCLEROTIC HEART DISEASE ; SVT ATHEROSCLEROTIC HEART DISEASE ; SVT Amb Documentation sob HYPOXIA, COVID-19 Reason for Visit History of implantab le cardiac defibrillator (ICD) Ischemic cardiomyopathy Sustained ventricular tachycardia Acute dehydration Adult failure to thrive COVID-19 Hyperglycemia due to diabetes mellitus Weakness Chronic hypertension Chief Complaint Pacer Check Remote Pacer Check Remote Pacer Check Remote Chief Complaint Pacer Check Remote Pacer Check Remote VIRAL SYNDROME, ADULT FTT Reason for Visit Adult failure to thr merlin Chronic anticoagulation Generalized weakness Hyperglycemia due to diabetes mellitus Unable to ambulate Viral syndrome Chronic kidney disease Chief Complaint Pacer Check Remote VIRAL SYNDROME, ADULT FTT VIRAL SYNDROME, ADULT FTT VIRAL SYNDROME, ADULT FTT Reason for Visit Adult failure to thr merlin Chronic anticoagulation Generalized weakness Hyperglycemia due to diabetes mellitus Unable to ambulate Viral syndrome Chronic kidney disease Chief Complaint Pacer Check Remote VIRAL SYNDROME, ADULT FTT VIRAL SYNDROME, ADULT FTT VIRAL SYNDROME, ADULT FTT sob Reason for Visit Adult failure to thr merlin Chronic anticoagulation Generalized weakness Hyperglycemia due to diabetes mellitus Unable to ambulate Viral syndrome Chronic kidney disease Chief Complaint Pacer Check Remote VIRAL SYNDROME, ADULT FTT VIRAL SYNDROME, ADULT FTT VIRAL SYNDROME, ADULT FTT Pacer Check Remote sob MULTIFOCAL NOSOCOMIAL PNEUMONIA AFTER RECENT Reason for Visit Adult failure to thr merlin Chronic anticoagulation Generalized weakness Hyperglycemia due to diabetes mellitus Unable to ambulate Viral syndrome Chronic kidney disease Acute CHF (congestive heart failure) Acute respiratory insufficiency Adult failure to thrive Pneumonia Viral syndrome Weakness Chief Complaint Admit Date Pacer Check Remote May 06, 2024 2 :00am Chief Complaint Admit Date Pacer Check Remote May 06, 2024 2 :00am EORDERS July 05, 2024 10:4 9am Chief Complaint Admit Date Pacer Check Remote May 06, 2024 2 :00am EORDERS July 05, 2024 10:4 9am CHEST PA & LAT August 05, 2024 10:06a m Chief Complaint Admit Date EORDERS July 05, 2024 10:4 9am CHEST PA & LAT August 05, 2024 10:06a m Additional Source Comments (unrecognized sect ion and content) No Status Records FoundNo Status Records FoundNo Status Records Found INFORMATION SOURCE (unrecogn ized section and content) DATE [facility]ATED [facility] DATE CREATED AUTHOR AUTHOR'S ORGANIZ ATION 06/15/2018 [facility] [employer] DATE CREATED AUTHOR AUTHOR'S ORGANIZ ATION 09/18/2024 [facility] Goals (unrecognized section and content) Goals may be documented in a n alternate sectionGoals may be documented in an alternate sectionGoals may be documented in an alternate sectionGoals may be documented in an alternate sectionGoals may be documented in an alternate sectionGoals may be documented in an alternate sectionGoals may be documented in an alternate sectionGoals may be documented in an alternate sectionGoals may be documented in an alternate sectionGoals may be documented in an alternate sectionGoals may be documented in an alternate sectionGoals may be documented in an alternate sectionGoals may be documented in an alternate sectionGoals may be documented in an alternate sectionGoals may be documented in an alternate sectionGoals may be documented in an alternate sectionGoals may be documented in an alternate sectionGoals may be documented in an alternate sectionGoals may be documented in an alternate section Care Teams (unrecognized sec tion and content) Team Status: Active Member Role Status Dates Dr. Nathen Chang MD Family Provider Active Dr. Nathen Chang MD Primary Care Provider Active Team Status: Inactive Member Role Status Dates Dr. Nathen Chang MD Primary Care Provider Active Ashlee Harper Active Dr. Chano Simms MD Attending Provider, Referring Pro vider Active Team Status: Active Member Role Status Dates Dr. Nathen Chang MD Primary Care Provider Active Dr. Nathen Del Castillo MD Attending Provider Active Team Status: Inactive Member Role Status Dates Dr. Nathen Chang MD Primary Care Provide r, Attending Provider, Referring Provider Active Team Status: Inactive Member Role Status Dates Dr. Nathen Chang MD Primary Care Provider, Attending P rovider Active Team Status: Inactive Member Role Status Dates Dr. Nathen Chang MD Primary Care Provider Active Dr. Candelaria Salazar DO Emergency Provider Active Team Status: Active Member Role Status Dates Dr. Nathen Chang MD Primary Care Provider, Referring P rovider Active Ashlee Harper Attending Provider Active Team Status: Inactive Member Role Status Dates Dr. Nathen Chang MD Primary Care Provider Active Dr. Candelaria Salazar DO Attending Provider, Emergency P rovider Active Team Status: Active Member Role Status Dates Dr. Nathen Chang MD Primary Care Provider, Referring P rovider Active Dr. Nathen Del Castillo MD Attending Provider Active Team Status: Inactive Member Role Status Dates Dr. Nathen Chang MD Primary Care Provider, Referring P rovider Active Ashlee Harper Attending Provider Active Team Status: Active Member Role Status Dates Dr. Nathen Chang MD Primary Care Provider Active Dequan Nettles [employer]LESS SALES EXPERT, WIRELESS SALES EXPERT-C Referring Provider, Other Provide r Active Dr. Chano Simms MD Attending Provider Active Team Status: Active Member Role Status Dates Dr. Nathen Chang MD Primary Care Provider Active Dequan Nettles WIRELESS SALES EXPERT, WIRELESS SALES EXPERT-C Attending Provider Active Team Status: Inactive Member Role Status Dates Dr. Nathen Chang MD Primary Care Provider Active Dequan Nettles WIRELESS SALES EXPERT, WIRELESS SALES EXPERT-C Attending Provider, Referring Pro vider Active Team Status: Active Member Role Status Dates Dr. Nathen Chang MD Primary Care Provider Active Dr. Solomon Griffiths MD Emergency Provider Active Dr. Gela Salinas MD Attending Provider Active Team Status: Active Member Role Status Dates Dr. Nathen Chang MD Primary Care Provider Active Dr. Solomon Griffiths MD Emergency Provider Active Dr. Gela Salinas MD Admit Provider, Attending Prov ider Active Team Status: Inactive Member Role Status Dates Dr. Nathen Chang MD Primary Care Provider Active Dr. Chano Simms MD Attending Provider, Referring Pro vider Active Team Status: Inactive Member Role Status Dates Dr. Nathen Chang MD Primary Care Provider Active Dr. Chano Simms MD Attending Provider Active Team Status: Active Member Role Status Dates Dr. Nathen Chang MD Primary Care Provider Active Dr. Solomon Griffiths MD Emergency Provider Active Dr. Gela Salinas MD Admit Provider, Other Provider Active Dr. Amanda Wick MD Attending Provider, Other Prov ider Active Team Status: Inactive Member Role Status Dates Dr. Nathen Chang MD Primary Care Provider Active Dr. Solomon Griffiths MD Emergency Provider Active Dr. Gela Salinas MD Admit Provider, Other Provider Active Dr. Amanda Wick MD Attending Provider Active Team Status: Inactive Member Role Status Dates Dr. Nathen Chang MD Primary Care Provider Active Dr. Solomon Griffiths MD Emergency Provider Active Team Status: Active Member Role Status Dates Dr. Nathen Chang MD Primary Care Provider Active Dr. Yassine Lopez DO Emergency Provider Active Dr. Cedrick Valdez DO Admit Provider, Attending Pr ovider Active Team Status: Active Member Role Status Dates Dr. Nathen Chang MD Primary Care Provider Active Team Status: Inactive Member Role Status Dates Dr. Nathen Chang MD Primary Care Provider Active Start: May 06, 2024 End: May 06, 2024 Dr. Chano Simms MD Attending Provider Active S tart: May 06, 2024 End: May 06, 2024 Dr. Chano Simms MD Referring Provider Active S tart: May 06, 2024 End: May 06, 2024 Team Status: Inactive Member Role Status Dates Dr. Nathen Chang MD Primary Care Provider Active Start: June 06, 2024 End: June 06, 2024 Dr. Nathen Chang MD Attending Provider Active St art: June 06, 2024 End: June 06, 2024 Dr. Nathen Chang MD Referring Provider Active St art: June 06, 2024 End: June 06, 2024 Team Status: Active Member Role Status Dates Dr. Nathen Chang MD Primary Care Provider Active Start: June 08, 2024 Dr. Nathen Chang MD Attending Provider Active St art: June 08, 2024 Dr. Nathen Chang MD Referring Provider Active St art: June 08, 2024 Team Status: Active Member Role Status Dates Dr. Nathen Chang MD Primary Care Provider Active Start: June 13, 2024 Dr. Nathen Chang MD Attending Provider Active St art: June 13, 2024 Team Status: Inactive Member Role Status Dates Dr. Nathen Chang MD Primary Care Provider Active Start: June 08, 2024 End: June 08, 2024 Dr. Nathen Chang MD Attending Provider Active St art: June 08, 2024 End: June 08, 2024 Dr. Nathen Chang MD Referring Provider Active St art: June 08, 2024 End: June 08, 2024 Team Status: Inactive Member Role Status Dates Dr. Nathen Chang MD Primary Care Provider Active Start: June 13, 2024 End: June 13, 2024 Dr. Nathen Chang MD Attending Provider Active St art: June 13, 2024 End: June 13, 2024 Team Status: Inactive Member Role Status Dates Dr. Nathen Chang MD Primary Care Provider Active Start: July 05, 2024 End: July 05, 2024 Dr. Nathen Chang MD Attending Provider Active St art: July 05, 2024 End: July 05, 2024 Dr. Nathen Chang MD Referring Provider Active St art: July 05, 2024 End: July 05, 2024 Team Status: Inactive Member Role Status Dates Dr. Nathen Chang MD Primary Care Provider Active Start: August 05, 2024 End: August 05, 2024 Parvez Biggs [employer] SAL[employer] EXPERT, [employer] SAL[employer] EXPERT-C Attending Provider Active Start: August 05, 2024 End: August 05, 2024 Parvez Hamiltonorrrobby [employer] SALES EXPERT, W[employer] SALES EXPERT-C Referring Provider Active Start: August 05, 2024 End: August 05, 2024 Team Status: Inactive Member Role Status Dates Dr. Nathen Chang MD Primary Care Provider Active Start: August 30, 2024 End: August 30, 2024 Dr. Nathen Chang MD Attending Provider Active St art: August 30, 2024 End: August 30, 2024 Dr. Nathen Chang MD Referring Provider Active St art: August 30, 2024 End: August 30, 2024 Team Status: Inactive Member Role Status Dates Dr. Nathen Chang MD Primary Care Provider Active Start: September 09, 2024 End: September 09, 2024 Dr. Nathen Chang MD Attending Provider Active St art: September 09, 2024 End: September 09, 2024 Dr. Nathen Chang MD Referring Provider Active St art: September 09, 2024 End: September 09, 2024 Team Status: Active Member Role Status Dates Dr. Nathen Chang MD Primary Care Provider Active Start: September 12, 2024 Dr. Nathen Chang MD Attending Provider Active St art: September 12, 2024 Dr. Nathen Chang MD Referring Provider Active St art: September 12, 2024 Team Status: Inactive Member Role Status Dates Dr. Nathen Chang MD Primary Care Provider Active Start: September 12, 2024 End: September 12, 2024 Dr. Nathen Chang MD Attending Provider Active St art: September 12, 2024 End: September 12, 2024 Dr. Nathen Chang MD Referring Provider Active St art: September 12, 2024 End: September 12, 2024 FOR RECORDS PERTAINING TO PATIENTS WHO ARE [...] BE BASED ON THE PRIMARY CLINICAL RECORDS. [facility] [employer] provides no warranty or guarantee of the accuracy or completeness of information in this document.
[2024-09-20 18:05] LABS: Anion Gap 14 (5-15); BUN 40 mg/dL (4-19); BUN/Creat Ratio 12.6 RATIO (10-20); Calcium,Total 9.7 mg/dL (7.6-11.0); Carbon Dioxide 22.4 mmol/L (21.0-32.0); Chloride 98 mmol/L (98-108); Creatinine, Serum 3.16 mg/dL (0.70-1.20); EST Glomerular Filtration Rate 19 (>60); Glucose 308 mg/dL (70-99); Potassium 5.5 mmol/L (3.3-5.1); Sodium Level 134 mmol/L (133-145)
== END | disposition home or self-care (01) ==
LOC: MFPLAB 09:58
PROVIDERS: PCP Family Medicine; Referring Provider Family Medicine; Visit Provider Family Medicine
DX: E66.812 Obesity, class 2 (principal); E66.01 Morbid (severe) obesity due to excess calories; E11.9 Type 2 diabetes mellitus without complications; I10 Essential (primary) hypertension
CPT/HCPCS: 80048

== ENCOUNTER → 2024-09-23 | Outpatient (CLI) | payer MEDICARE, MEDICAID, SELFPAY ==
[2024-09-23 11:12] LABS: Anion Gap 13 (5-15); BUN 39 mg/dL (4-19); BUN/Creat Ratio 12.4 RATIO (10-20); Calcium,Total 9.6 mg/dL (7.6-11.0); Carbon Dioxide 22.7 mmol/L (21.0-32.0); Chloride 99 mmol/L (98-108); Creatinine, Serum 3.17 mg/dL (0.70-1.20); EST Glomerular Filtration Rate 19 (>60); Glucose 362 mg/dL (70-99); Potassium 4.8 mmol/L (3.3-5.1); Sodium Level 135 mmol/L (133-145)
== END | disposition home or self-care (01) ==
LOC: MFPLAB 09:24
PROVIDERS: PCP Family Medicine; Referring Provider Family Medicine; Visit Provider Family Medicine
DX: E11.9 Type 2 diabetes mellitus without complications (principal)
CPT/HCPCS: 36415; 80048

== ENCOUNTER 2024-09-27 11:22 | Observation (INO) | payer MEDICARE, MEDICAID, SELFPAY ==
[2024-09-27] VITALS (11 sets, daily range): BP systolic 99–160; BP diastolic 56–85; PULSE 67–89; RESP 15–19; TEMP 36.2–36.7; O2SAT 92–98; BMI 13.7; BMI 30.4
--- NOTE | 2024-09-27 11:31 | EKG12_ITS ---
Test Reason : DIZZY Blood Pressure : */* mmHG Vent. Rate : 75 BPM Atrial Rate : 75 BPM P-R Int : 168 ms QRS Dur : 120 ms QT Int : 442 ms P-R-T Axes : * -80 39 degrees QTcB Int : 493 ms Normal sinus rhythm Right bundle branch block Left anterior fascicular block Bifascicular block Abnormal ECG Confirmed by RICK ARCE, VIKKI ([id number]), acquisition editor ADÁN CHANCE ([id number]) on 09/28/2024 11:09:20 AM Referred By: Lalo/Lata Confirmed By: VIKKI CABRERA MD
[2024-09-27 11:47] LABS: Absolute Neutrophil Count 4.6 X10^3/uL (2.0-7.7); Basophil# 0.07 X10^3/uL; Eosinophil# 0.14 X10^3/uL; Eosinophils% 1.9 % (0-5); Hematocrit 42.4 % (40-54); Hemoglobin 14.4 g/dL (13.0-16.5); Lymphocyte % 23.3 % (19-41); Mean Corpuscular Hgb 29.7 pg (27.0-32.0); Mean Corpuscular Volume 87.4 fL (80-94); Mean Platelet Vol. 10.7 fl (6.2-12.0); Monocyte# 0.79 X10^3/uL; Monocyte% 10.8 % (0-10); NRBC Flagged by Analyzer 0 % (0-5); Neutrophil # 4.55 X10^3/uL (2.7-7.7); Neutrophil % 62.3 % (47-70); Platelet Count 190 K/mm3 (150-450); RBC Distribution Width CV 13.6 % (11.6-14.6); RBC Distribution Width SD 43.5 fl (35.1-43.9); Red Blood Count 4.85 M/mm3 (4.6-6.2); White Blood Count 7.3 K/mm3 (4.4-11.0)
[2024-09-27] MEDS: 0.9% Normal Saline (1000mL) 1,000 ML 999 ML IV ×2 (11:47→17:15)
--- NOTE | 2024-09-27 12:03 | EDS_ITS ---
HPI History of Present Illness Chief Complaint: Syncope Narrative Narrative: Patient is a 70-year-old male with a past medical history of COPD, chronic kidney disease, diabetes, hypertension, hyperlipidemia, ICD, on Eliquis who presented to the emergency department with a chief complaint of not feeling well overall. He states that 3 weeks ago my physician started me on a new pill for a gland that is not working properly he cannot tell me any information that pertains to this. He states that over the weekend he went down to visit a friend and noted over the weekend on Thursday he became lightheaded and was feeling fatigued and not well he states that he went home and notes that he laid in bed all day Thursday. He states that he had appointment for a blood draw for this new medicine that he was started on and states that while waiting in the waiting room he was not feeling well. He states that after the blood draw he was sitting in the waiting room and he noted that he vomited all of the floor and felt very ill. He states that they checked his blood pressure and noted th at it was low and the provider there called the EMS personnel to have him brought here for further evaluation management. He states that he did not pass out. 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) Cardiac arrest with ventricular fibrillation (04/07/12) Essential hypertension Solitary kidney Hypothyroidism Nicotine dependence Atherosclerosis of coronary artery of [place] heart without angina pectoris Ventricular fibrillation Left ventricular aneurysm Ischemic cardiomyopathy Hyperlipidemia Obesity Home Medications ?Medication ?Instructions ?Recorded ?Last Taken ?Type fexofenadine-pseudoephedrine ER 1 tab PO DAILY PRN ALL ERGIES 01/20/16 Unknown History 180 mg-240 mg tablet,ext.release 24 hr acetaminophen 500 mg tablet 1,000 mg (2 x 500 mg) PO Q 6H PRN 10/22/21 Unknown Rx (Tylenol Extra Strength) PAIN #20 tabs rosuvastatin 20 mg tablet 20 mg PO DAILY CHOLESTEROL #30 02/03/22 Unknown Rx tabs magnesium oxide 400 mg PO QHS SUPPLEMENT Unknown History pyridoxine (vitamin B6) 50 mg 50 mg PO TIDCM SUPPLEMEN T 12/27/22 Unknown History tablet clopidogrel 75 mg tablet 75 mg PO DAILY BLOOD THINNER 08/06/23 Unknown History cholecalciferol (vitamin D3) 125 125 mcg PO DAILY SUPP LEMENT 08/12/23 Unknown History mcg (5,000 unit) tablet levothyroxine 100 mcg tablet 100 mcg PO DAILY THYROID 08/12/23 Unknown History L.acidophil,salivari-Bifido 1 cap PO BID #0 caps 08/17 Unknown Rx bifidum-Strep thermoph 175 mg capsule amoxicillin 500 mg-potassium 1 tab PO BID 7 days #14 t abs 08/18/23 Unknown Rx clavulanate 125 mg tablet (Augmentin) dextromethorphan-guaifenesin 30 2 tab PO BID 7 days #2 8 tabs 08/18/23 Unknown Rx mg-600 mg tablet extended [id number] hr (Mucinex DM) furosemide 40 mg tablet (Lasix) 40 mg PO DAILY 1 month #30 tabs 08/18/23 Unknown Rx insulin glargine 100 unit/mL (3 50 unit (0.5 mL) subcu t QPM 08/18/23 Unknown Rx mL) subcutaneous pen DIABETES 30 days #0 mL insulin lispro 100 unit/mL 30 unit (0.3 mL) subcut TID AC 08/18/23 Unknown Rx subcutaneous pen (Humalog KwikPen DIABETES 30 days #0 mL (U-100) Insulin) ipratropium 20 mcg-albuterol 100 2 puff inhalation Q6H PRN 08/18/23 Unknown Rx mcg/actuation mist for inhalation shortness of breath or wheezing #4 (Combivent Respimat) grams pantoprazole 40 mg tablet,delayed 40 mg PO DAILY 1 mon th #30 tabs 08/18/23
--- NOTE | 2024-09-27 12:03 | EX.ED.DYSGE1 ---
HPI History of Present Illness Chief Complaint: Syncope Narrative Narrative: Patient is a 70-year-old male with a past medical history of COPD, chronic kidney disease, diabetes, hypertension, hyperlipidemia, ICD, on Eliquis who presented to the emergency department with a chief complaint of not feeling well overall. He states that 3 weeks ago my physician started me on a new pill for a gland that is not working properly he cannot tell me any information that pertains to this. He states that over the weekend he went down to visit a friend and noted over the weekend on Thursday he became lightheaded and was feeling fatigued and not well he states that he went home and notes that he laid in bed all day Thursday. He states that he had appointment for a blood draw for this new medicine that he was started on and states that while waiting in the waiting room he was not feeling well. He states that after the blood draw he was sitting in the waiting room and he noted that he vomited all of the floor and felt very ill. He states that they checked his blood pressure and noted that it was low and the provider there called the EMS personnel to have him brought here for further evaluation management. He states that he did not pass out. 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) Cardiac arrest with ventricular fibrillation (04/07/12) Essential hypertension Solitary kidney Hypothyroidism Nicotine dependence Atherosclerosis of coronary artery of [place] heart without angina pectoris Ventricular fibrillation Left ventricular aneurysm Ischemic cardiomyopathy Hyperlipidemia Obesity Home Medications ?Medication ?Instructions ?Recorded ?Last Taken ?Type fexofenadine-pseudoephedrine ER 1 tab PO DAILY PRN ALLERGIES 01/20/16 Unknown History 180 mg-240 mg tablet,ext.release 24 hr acetaminophen 500 mg tablet 1,000 mg (2 x 500 mg) PO Q6H PRN 10/22/21 Unknown Rx (Tylenol Extra Strength) PAIN #20 tabs rosuvastatin 20 mg tablet 20 mg PO DAILY CHOLESTEROL #30 02/03/22 Unknown Rx tabs magnesium oxide 400 mg PO QHS SUPPLEMENT 12/27/22 Unknown History pyridoxine (vitamin B6) 50 mg 50 mg PO TIDCM SUPPLEMENT 12/27/22 Unknown History tablet clopidogrel 75 mg tablet 75 mg PO DAILY BLOOD THINNER 08/06/23 Unknown History cholecalciferol (vitamin D3) 125 125 mcg PO DAILY SUPPLEMENT 08/12/23 Unknown History mcg (5,000 unit) tablet levothyroxine 100 mcg tablet 100 mcg PO DAILY THYROID 08/12/23 Unknown History L.acidophil,salivari-Bifido 1 cap PO BID #0 caps 08/18/23 Unknown Rx bifidum-Strep thermoph 175 mg capsule amoxicillin 500 mg-potassium 1 tab PO BID 7 days #14 tabs 08/18/23 Unknown Rx clavulanate 125 mg tablet (Augmentin) dextromethorphan-guaifenesin 30 2 tab PO BID 7 days #28 tabs 08/18/23 Unknown Rx mg-600 mg tablet extended [id number] hr (Mucinex DM) furosemide 40 mg tablet (Lasix) 40 mg PO DAILY 1 month #30 tabs 08/18/23 Unknown Rx insulin glargine 100 unit/mL (3 50 unit (0.5 mL) subcut QPM 08/18/23 Unknown Rx mL) subcutaneous pen DIABETES 30 days #0 mL insulin lispro 100 unit/mL 30 unit (0.3 mL) subcut TIDAC 08/18/23 Unknown Rx subcutaneous pen (Humalog KwikPen DIABETES 30 days #0 mL (U-100) Insulin) ipratropium 20 mcg-albuterol 100 2 puff inhalation Q6H PRN 08/18/23 Unknown Rx mcg/actuation mist for inhalation shortness of breath or wheezing #4 (Combivent Respimat) grams pantoprazole 40 mg tablet,delayed 40 mg PO DAILY 1 month #30 tabs 08/18/23 Unknown Rx release (Protonix) prednisone 10 mg tablet See Taper PO DAILY #30 tabs 08/18/23 Unknown Rx carvedilol 25 mg tablet 25 mg PO BID #30 TABLETS 02/08/24 Unknown Rx apixaban 2.5 mg tablet (Eliquis) 2.5 mg PO BID #180 tabs 08/02/24 Unknown Rx Allergy/AdvReac Type Severity Reaction Status Date / Time amiodarone AdvReac Severe significant Verified 09/27/24 11:22 effect on lung function per PFT 09/19/17 Family History Father Colon cancer Mother No problems noted. Surgical History History of implantable cardiac defibrillator (ICD) (04/12/12) Hx of colonoscopy History of electrophysiologic study (10/21/12) History of left heart catheterization (01/21/16) Social History household members: significant other Smoking Status: Former smoker alcohol intake: never substance use type: does not use ROS ROS ED ROS Narrative Constitutional: Complains of lightheadedness denies dizziness, fevers, chills, headaches Eyes: Denies change in vision double vision blurry vision Cardiovascular: Denies chest pain or palpitations Respiratory: Denies coughing wheezing shortness of breath Abdomen: Denies abdominal pain nausea vomit diarrhea : Denies urinary symptoms Neurological: Denies numbness, weakness, tingling Musculoskeletal: Denies back pain Skin: Denies rashes or lesions EXAM Physical Exam Narrative Exam Narrative: General: Patient was lying in bed rest comfortably did not appear to be in acute distress Head: Atraumatic, normocephalic Eyes: PERRL bilaterally, EOMI bilateral, no conjunctival injection noted Neck: Soft, supple, trachea midline Cardiovascular: Regular rate and rhythm no murmurs gallops rubs noted Respiratory: Clear to auscultation bilaterally Abdomen: Soft, nondistended, tender to palpation Extremities: +5/5 strength noted in the bilateral upper and lower extremities, radial pulses +2/4 in the bilateral extremities Neurological: Patient following commands and that he was at [facility] year is 2024. NIH of 0 GCS 15 Skin: Warm, dry, intact no rashes or lesions noted Const Vital Signs: 09/27/24 11:23 09/27/24 11:23 09/27/24 11:28 Temperature 97.6 F L Temperature Source Oral Pulse Rate 73 77 Pulse Rate [Lying] Pulse Rate [Sitting (for 1 minute prior to obtaining)] Pulse Rate [Standing (for 1 minute prior to obtaining)] Respiratory Rate 18 Respiratory Pattern Normal Blood Pressure 115/66 Blood Pressure [Lying] Blood Pressure [Sitting (for 1 minute prior to obtaining)] Blood Pressure [Standing (for 1 minute prior to obtaining)] Blood Pressure Mean 82 Blood Pressure Mean [Lying] Blood Pressure Mean [Sitting (for 1 minute prior to obtaining)] Blood Pressure Mean [Standing (for 1 minute prior to obtaining)] Pulse Ox 96 Oxygen Delivery Method Room Air 09/27/24 11:31 09/27/24 12:14 09/27/24 13:00 Temperature Temperature Source Pulse Rate 70 70 Pulse Rate [Lying] Pulse Rate [Sitting (for 1 minute prior to obtaining)] Pulse Rate [Standing (for 1 minute prior to obtaining)] Respiratory Rate 18 18 Respiratory Pattern Blood Pressure 117/64 131/81 H Blood Pressure [Lying] Blood Pressure [Sitting (for 1 minute prior to obtaining)] Blood Pressure [Standing (for 1 minute prior to obtaining)] Blood Pressure Mean 81 97 Blood Pressure Mean [Lying] Blood Pressure Mean [Sitting (for 1 minute prior to obtaining)] Blood Pressure Mean [Standing (for 1 minute prior to obtaining)] Pulse Ox 94 98 Oxygen Delivery Method Room Air Room Air 09/27/24 14:00 09/27/24 14:46 09/27/24 15:00 Temperature Temperature Source Pulse Rate 69 83 Pulse Rate [Lying] 83 Pulse Rate [Sitting (for 1 minute prior to obtaining)] 85 Pulse Rate [Standing (for 1 minute prior to obtaining)] 72 Respiratory Rate 17 18 Respiratory Pattern Blood Pressure 142/79 H 141/79 H Blood Pressure [Lying] 137/82 H Blood Pressure [Sitting (for 1 minute prior to obtaining)] 129/77 H Blood Pressure [Standing (for 1 minute prior to obtaining)] 99/65 Blood Pressure Mean 100 99 Blood Pressure Mean [Lying] 100 Blood Pressure Mean [Sitting (for 1 minute prior to obtaining)] 94 Blood Pressure Mean [Standing (for 1 minute prior to obtaining)] 76 Pulse Ox 93 94 Oxygen Delivery Method Room Air Room Air 09/27/24 16:00 09/27/24 17:00 09/27/24 17:16 Temperature 97.2 F L Temperature Source Pulse Rate 71 71 67 Pulse Rate [Lying] Pulse Rate [Sitting (for 1 minute prior to obtaining)] Pulse Rate [Standing (for 1 minute prior to obtaining)] Respiratory Rate 15 18 18 Respiratory Pattern Blood Pressure 145/79 H 145/85 H 145/85 H Blood Pressure [Lying] Blood Pressure [Sitting (for 1 minute prior to obtaining)] Blood Pressure [Standing (for 1 minute prior to obtaining)] Blood Pressure Mean 101 105 105 Blood Pressure Mean [Lying] Blood Pressure Mean [Sitting (for 1 minute prior to obtaining)] Blood Pressure Mean [Standing (for 1 minute prior to obtaining)] Pulse Ox 92 93 95 Oxygen Delivery Method Room Air Room Air MDM MDM MDM Narrative Medical decision making narrative: Patient is a 78-year-old male who presented to the emergency department with a chief complaint of near syncope, vomiting not feeling well overall. On the differential diagnosis includes but not limited to ACS, pneumonia, viral gastroenteritis, dehydration, DKA, hypothyroidism, electrolyte abnormality. Once workup is obtained reviewed he will be reevaluated. Patient be given IV fluids. Patient's CBC was reviewed showed no evidence leukocytosis white blood count was 7.3, hemoglobin 14.4, platelet count was 190. Patient sodium was normal 139, [place] 4.7, creatinine was elevated at 3.11 he has underlying chronic kidney disease according to previous blood draws this is around his baseline. Patient's troponin was 103 with a delta troponin of 93. Patient's TSH normal at 1.93, free T4 and T3 were normal at 1.20 and 2.5 respectively. Patient's EKG was reviewed and showed sinus rhythm with a rate of 75 bpm with evidence of right bundle branch block. This was compared to EKG from 08/14/2023 which also showed evidence of right bundle branch block at that point time. Patient chest x-ray reviewed by myself by radiology which showed no acute cardiopulmonary processes there is a left thoracic transvenous pacemaker with the atrial and ventricular leads. Stable. Patient's orthostatic vital signs were positive here in the emergency department and he was ordered additional fluids. At this point time will discuss case with hospitalist for his near syncope, orthostatic hypotension, generalized weakness and not feeling well. Discussed case with hospitalist Dr. Antunez who accept patient for admission. Patient is agreeable this plan all question concerns answered. Lab Data Labs: Laboratory Results - last 24 hr 09/27/24 09/27/24 09/27/24 11:35 13:25 15:27 WBC 7.3 RBC 4.85 Hgb 14.4 Hct 42.4 MCV 87.4 MCH 29.7 MCHC 34.0 RDW Std Deviation 43.5 RDW Coeff of Peggy 13.6 Plt Count 190 MPV 10.7 Immature Gran % (Auto) 0.700 Neut % (Auto) 62.3 Lymph % (Auto) 23.3 [place] % (Auto) 10.8 H Eos % (Auto) 1.9 Baso % (Auto) 1.0 Absolute Neuts (auto) 4.6 Absolute Lymphs (auto) 1.70 Nucleated RBC % 0 Sodium Cancelled 139 Potassium Cancelled 4.7 Chloride Cancelled 102 Carbon Dioxide Cancelled 27.5 Anion Gap Cancelled 9 BUN Cancelled 36 H Creatinine Cancelled 3.11 H Estim Creat Clear Calc Cancelled 12.74 L Est GFR (MDRD) Non-Af Cancelled 20 L BUN/Creatinine Ratio Cancelled 11.5 Glucose Cancelled 109 H Calcium Cancelled 10.0 Total Bilirubin Cancelled 0.31 Direct Bilirubin Cancelled 0.14 AST Cancelled 15 ALT Cancelled 6 Alkaline Phosphatase Cancelled 54 Troponin T High Sens Cancelled 103 H* Troponin T Hi Sens 2 Hr 93 H* Total Protein Cancelled 6.7 Albumin Cancelled 3.7 Globulin Cancelled 3.0 TSH Cancelled 1.930 Free T4 Cancelled 1.20 Free T3 pg/dL Cancelled 2.5 Radiography Diagnostic Testing: Clinical Impression(s) from Imaging Studies Chest X-Ray 09/27/24 12:30 IMPRESSION: Left thoracic transvenous pacemaker with atrial and ventricular leads appears stable. Lungs are somewhat hypoinflated, but appear clear of acute disease. No pleural effusion or pneumothorax is noted. The cardiomediastinal silhouette is stable, without evidence of cardiomegaly. No interval osseous change is seen. Reading Location: [facility] Discharge Plan Triage Chief Complaint: Syncope ED Provider: Greg May Dx/Rx/DC Orders Clinical Impression: Near syncope, Orthostatic hypotension Prescriptions: No Action fexofenadine-pseudoephedrine 1 TAB.SR tablet extended release 24 hr 1 tab PO DAILY PRN (Reason: ALLERGIES ) acetaminophen [Tylenol Extra Strength] 500 mg tablet 1,000 mg PO Q6H PRN (Reason: PAIN ) Qty: 20 0RF rosuvastatin 20 mg tablet 20 mg PO DAILY Qty: 30 2RF pyridoxine (vitamin B6) 50 mg tablet 50 mg PO TIDCM magnesium oxide 400 mg magnesium tablet 400 mg PO QHS clopidogrel 75 mg tablet 75 mg PO DAILY L.acidoph,saliva-B.bif-S.therm 175 mg Capsule 1 cap PO BID Qty: 0 0RF Rx Instructions: Probiotic advised with [id number] Mucinex DM 30-600 mg Tablet Extended Release 12 Hr 2 tab PO BID 7 Days Qty: 28 0RF Combivent Respimat 20-100 mcg/actuation mist 2 puff inhalation Q6H PRN (Reason: shortness of breath or wheezing) Qty: 4 0RF amoxicillin-pot clavulanate [Augmentin] 500-125 mg tablet 1 tab PO BID 7 Days Qty: 14 0RF furosemide [Lasix] 40 mg tablet 40 mg PO DAILY 30 Days Qty: 30 0RF insulin glargine 100 unit/mL (3 mL) Insulin Pen 50 unit SUBCUT QPM 30 Days Qty: 0 0RF prednisone 10 mg tablet See Taper PO DAILY Qty: 30 0RF Taper: Prednisone Taper 50 mg WITH BREAKFAST for 5 Days and 0 Hour 40 mg WITH BREAKFAST for 5 Days and 0 Hour 30 mg WITH BREAKFAST for 5 Days and 0 Hour 20 mg WITH BREAKFAST for 5 Days and 0 Hour 10 mg WITH BREAKFAST for 5 Days and 0 Hour insulin lispro [Humalog KwikPen Insulin] 100 unit/mL insulin pen 30 unit subcut TIDAC 30 Days Qty: 0 0RF Rx Instructions: Hold if glucose less than 130 mg/dl pantoprazole [Protonix] 40 mg tablet,delayed release (DR/EC) 40 mg PO DAILY 30 Days Qty: 30 0RF levothyroxine 100 mcg tablet 100 mcg PO DAILY cholecalciferol (vitamin D3) 125 mcg (5,000 unit) tablet 125 mcg PO DAILY carvedilol 25 mg tablet 25 mg PO BID Qty: 30 1RF Rx Instructions: Short term supply-waiting on mail order to arrive Eliquis 2.5 mg tablet 2.5 mg PO BID Qty: 180 3RF Primary Care Provider: Nathen Chang Referrals: Nathen Chang MD [Primary Care Provider] - Print Language: Mauritian Disposition Disposition: Acute Care Hospital [facility]
--- NOTE | 2024-09-27 12:30 | RAD_ITS ---
PROCEDURE: CHEST PA AND LATERAL 09/27/2024 REASON FOR EXAM: CHEST PAIN TECHNIQUE: CHEST PA AND LATERAL COMPARISON: Chest x-ray of 08/05/2024. RAD/Chest PA and Lateral IMPRESSION: Left thoracic transvenous pacemaker with atrial and ventricular leads appears s table. Lungs are somewhat hypoinflated, but appear clear of acute disease. No pleural effusion or pneumothorax is noted. The cardiomediastinal silhouette is stable, without evidence of cardiomegaly. No interval osseous change is seen. Reading Location: [place] [id number]
[2024-09-27 14:01] LABS: AST(SGOT) 15 U/L (<=37); Alanine Aminotransfer ALT/SGPT 6 U/L (<=46); Albumin, Serum 3.7 g/dL (3.4-4.8); Alkaline Phosphatase 54 U/L (40-129); Anion Gap 9 (5-15); BUN 36 mg/dL (4-19); BUN/Creat Ratio 11.5 RATIO (10-20); Bilirubin, Direct 0.14 mg/dL (0.00-0.30); Carbon Dioxide 27.5 mmol/L (21.0-32.0); Chloride 102 mmol/L (98-108); Creatinine, Serum 3.11 mg/dL (0.70-1.20); EST Glomerular Filtration Rate 20 (>60); Estimated Creatinine Clearance 12.74 ml/min (50-250); Free T3 2.5 pg/mL (2.18-3.98); Glucose 109 mg/dL (70-99); Potassium 4.7 mmol/L (3.3-5.1); Protein, Total 6.7 g/dL (5.9-8.4); Sodium Level 139 mmol/L (133-145); Total Bilirubin 0.31 mg/dL (0.00-1.30)
[2024-09-27 14:04] LABS: Troponin T High Sensitivity 103 ng/L (<=22)
[2024-09-27 16:40] LABS: Troponin T High Sens 2 HR 93 ng/L (<=22)
[2024-09-27 18:25] LABS: Troponin T High Sens 4 HR 87 ng/L (<=22)
--- NOTE | 2024-09-27 18:41 | HP.PCM.HOS_ITS ---
HPI - General General Date of Admission: 09/27/24 Date of Service: 09/27/24 Chief Complaint: Lightheadedness HPI Narrative PARK MARISCAL, is a 78-year-old male history of hypothyroidism, ICD, COPD, hypertension, CKD, ischemic cardiomyopathy, GERD presented [facility] ED 09/27/2024 due to lightheadedness and feeling generally unwell. In the ED patient afebrile, heart rate 73 with blood pressure 115/66, respiratory rate 18 and patient 96% on room air with orthostatic vital signs positive with a blood pressure 137/82 and on standing it dropped to 99/65. CBC in the ED unremarkable and creatinine 3.11 which is similar over the past 10 days. Troponin was 103 down trended to 87. Given his report of presyncope, lightheadedness and orthostatic positive hospitalist contacted for admission. Patient evaluated at bedside. He reports he was started on a new medication 3 weeks ago and has been feeling somewhat unwell since that time with lightheadedness and over the weekend he was at his friends at the [place] and he became very lightheaded when he stood up and felt unwell and this is continued happening over the past 2 days. He had a doctor's appointment this morning at his PCPs office and went to get lab work before the appointment, after his lab work he went into the waiting room where he had a presyncopal episode and vomited prompting him to come to the ED. Patient did feel lightheaded when he arrived and had orthostats and ambulated to the bathroom, not particularly symptomatic while laying there at present. Does have slight headache but otherwise no new or acute complaints. Does note all the symptoms started when he had the new medication change. Denies any chest pain or shortness of breath. When asked what medicine changed he said he does not know that he takes him any medicines he is not sure what the medicines are for which ones he is taking. 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) Cardiac arrest with ventricular fibrillation (04/07/12) Essential hypertension Solitary kidney Hypothyroidism Nicotine dependence Atherosclerosis of coronary artery of [place] heart without angina pectoris Ventricular fibrillation Left ventricular aneurysm Ischemic cardiomyopathy Hyperlipidemia Obesity Home Medications ?Medication ?Instructions ?Recorded ?Last Taken ?Type fexofenadine-pseudoephedrine ER 1 tab PO DAILY PRN ALL ERGIES 01/20/16 Unknown History 180 mg-240 mg tablet,ext.release 24 hr acetaminophen 500 mg tablet 1,000 mg (2 x 500 mg) PO Q 6H PRN 10/22/21 Unknown Rx (Tylenol Extra Strength) PAIN #20 tabs rosuvastatin 20 mg tablet 20 mg PO DAILY CHOLESTEROL #30 02/03/22 Unknown Rx tabs magnesium oxide 400 mg PO QHS SUPPLEMENT Unknown History pyridoxine (vitamin B6) 50 mg 50 mg PO TIDCM SUPPLEMEN T 12/27/22 Unknown History tablet clopidogrel 75 mg tablet 75 mg PO DAILY BLOOD THINNER 08/06/23 Unknown History cholecalciferol (vitamin D3) 125 125 mcg PO DAILY SUPP LEMENT 08/12/23 Unknown History mcg (5,000 unit) tablet levothyroxine 100 mcg tablet 100 mcg PO DAILY THYROID 08/12/23 Unknown History L.acidophil,salivari-Bifido 1 cap PO BID #0 caps 08/17 Unknown Rx bifidum-Strep thermoph 175 mg capsule amoxicillin 500 mg-potassium 1 tab PO BID 7 days #14 t abs 08/18/23 Unknown Rx clavulanate 125 mg tablet (Augmentin) dextromethorphan-guaifenesin 30 2 tab PO BID 7 days #2 8 tabs 08/18/23 Unknown Rx mg-600 mg tablet extended fohiiyx60 hr (Mucinex DM) furosemide 40 mg tablet (Lasix) 40 mg PO DAILY 1 month #30 tabs 08/18/23 Unknown Rx insulin glargine 100 unit/mL (3 50 unit (0.5 mL) subcu t QPM 08/18/23 Unknown Rx mL) subcutaneous pen DIABETES 30 days #0 mL insulin lispro 100 unit/mL 30 unit (0.3 mL) subcut TID AC 08/18/23 Unknown Rx subcutaneous pen (Humalog KwikPen DIABETES 30 days #0 mL (U-100) Insulin) ipratropium 20 mcg-albuterol 100 2 puff inhalation Q6H PRN 08/18/23 Unknown Rx mcg/actuation mist for inhalation shortness of breath or wheezing #4 (Combivent Respimat) grams pantoprazole 40 mg tablet,delayed 40 mg PO DAILY 1 mon th #30 tabs 08/18/23 Unknown Rx release (Protonix) prednisone 10 mg tablet See Taper PO DAILY #30 tabs 08/18/23 Unknown Rx carvedilol 25 mg tablet 25 mg PO BID #30 TABLETS 07/28 Unknown Rx apixaban 2.5 mg tablet (Eliquis) 2.5 mg PO BID #180 ta bs 08/02/24 Unknown Rx Allergy/AdvReac Type Severity Reaction Status Date / Time amiodarone AdvReac Severe significant Verified 09/27/24 11:22 effect on lung function per PFT 09/19/17 Family History Father Colon cancer Mother No problems noted. Surgical History History of implantable cardiac defibrillator (ICD) (04/12/12) Hx of colonoscopy History of electrophysiologic study (10/21/12) History of left heart catheterization (01/21/16) Social History household members: significant other Smoking Status: Former smoker alcohol intake: never substance use type: does not use ROS ROS Narrative General: Denies fever/chills HENT: Slight headache at present, denies stuffy nose, denies sore throat EYES: Denies changes in vision Resp: Denies cough, denies shortness of breath Cardiac: Denies chest pain GI: Denies abdominal pain, denies changes in bowel, denies nausea/vomiting : Denies changes in urination Extremity: Denies swelling MSK: Some generalized weakness and lightheadedness Neuro: 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 Heme: Denies any bleeding or bruising Skin: Denies rashes Psychiatric: No complaints voiced Vital Signs Vital Signs Vital Signs: 09/27/24 11:23 09/27/24 11:23 09/27/24 11:28 Temperature 97.6 F L Temperature Source Oral Pulse Rate 73 77 Pulse Rate [Lying] Pulse Rate [Sitting (for 1 minute prior to obtaining)] Pulse Rate [Standing (for 1 minute prior to obtaining)] Respiratory Rate 18 Respiratory Pattern Normal Blood Pressure 115/66 Blood Pressure [Lying] Blood Pressure [Sitting (for 1 minute prior to obtaining)] Blood Pressure [Standing (for 1 minute prior to obtaining)] Blood Pressure Mean 82 Blood Pressure Mean [Lying] Blood Pressure Mean [Sitting (for 1 minute prior to obtaining)] Blood Pressure Mean [Standing (for 1 minute prior to obtaining)] Pulse Ox 96 Oxygen Delivery Method Room Air 09/27/24 11:31 09/27/24 12:14 09/27/24 13:00 Temperature Temperature Source Pulse Rate 70 70 Pulse Rate [Lying] Pulse Rate [Sitting (for 1 minute prior to obtaining)] Pulse Rate [Standing (for 1 minute prior to obtaining)] Respiratory Rate 18 18 Respiratory Pattern Blood Pressure 117/64 131/81 H Blood Pressure [Lying] Blood Pressure [Sitting (for 1 minute prior to obtaining)] Blood Pressure [Standing (for 1 minute prior to obtaining)] Blood Pressure Mean 81 97 Blood Pressure Mean [Lying] Blood Pressure Mean [Sitting (for 1 minute prior to obtaining)] Blood Pressure Mean [Standing (for 1 minute prior to obtaining)] Pulse Ox 94 98 Oxygen Delivery Method Room Air Room Air 09/27/24 14:00 09/27/24 14:46 09/27/24 15:00 Temperature Temperature Source Pulse Rate 69 83 Pulse Rate [Lying] 83 Pulse Rate [Sitting (for 1 minute prior to obtaining)] 85 Pulse Rate [Standing (for 1 minute prior to obtaining)] 72 Respiratory Rate 17 18 Respiratory Pattern Blood Pressure 142/79 H 141/79 H Blood Pressure [Lying] 137/82 H Blood Pressure [Sitting (for 1 minute prior to obtaining)] 129/77 H Blood Pressure [Standing (for 1 minute prior to obtaining)] 99/65 Blood Pressure Mean 100 99 Blood Pressure Mean [Lying] 100 Blood Pressure Mean [Sitting (for 1 minute prior to obtaining)] 94 Blood Pressure Mean [Standing (for 1 minute prior to obtaining)] 76 Pulse Ox 93 94 Oxygen Delivery Method Room Air Room Air 09/27/24 16:00 09/27/24 17:00 09/27/24 17:16 Temperature 97.2 F L Temperature Source Pulse Rate 71 71 67 Pulse Rate [Lying] Pulse Rate [Sitting (for 1 minute prior to obtaining)] Pulse Rate [Standing (for 1 minute prior to obtaining)] Respiratory Rate 15 18 18 Respiratory Pattern Blood Pressure 145/79 H 145/85 H 145/85 H Blood Pressure [Lying] Blood Pressure [Sitting (for 1 minute prior to obtaining)] Blood Pressure [Standing (for 1 minute prior to obtaining)] Blood Pressure Mean 101 105 105 Blood Pressure Mean [Lying] Blood Pressure Mean [Sitting (for 1 minute prior to obtaining)] Blood Pressure Mean [Standing (for 1 minute prior to obtaining)] Pulse Ox 92 93 95 Oxygen Delivery Method Room Air Room Air 09/27/24 18:00 Temperature Temperature Source Pulse Rate 83 Pulse Rate [Lying] Pulse Rate [Sitting (for 1 minute prior to obtaining)] Pulse Rate [Standing (for 1 minute prior to obtaining)] Respiratory Rate 19 H Respiratory Pattern Blood Pressure 160/84 H Blood Pressure [Lying] Blood Pressure [Sitting (for 1 minute prior to obtaining)] Blood Pressure [Standing (for 1 minute prior to obtaining)] Blood Pressure Mean 109 Blood Pressure Mean [Lying] Blood Pressure Mean [Sitting (for 1 minute prior to obtaining)] Blood Pressure Mean [Standing (for 1 minute prior to obtaining)] Pulse Ox 95 Oxygen Delivery Method Room Air Weight Weight: 45.994 kg Body Mass Index (BMI) 13.7 Physical Exam Narrative General: Alert, oriented, no apparent distress HEENT: Atraumatic, normocephalic Eyes: Anicteric, normal conjunctiva, extraocular movements grossly intact Neck: Supple Respiratory: Clear to auscultation bilaterally, normal respiratory effort Cardiovascular: Regular rate and rhythm GI: Soft, nontender, nondistended Extremities: No edema Musculoskeletal: Moving all extremities Neuro: No overt focal neurological deficits Skin: No rashes appreciated Psych: Cooperative Results Lab / Micro Data 09/27/24 11:35 09/27/24 13:25 Labs: Laboratory Results - last 24 hr 09/27/24 11:35: WBC 7.3, RBC 4.85, Hgb 14.4, Hct 42.4, MCV 87.4, MCH 29.7, MCHC 34.0, RDW Std Deviation 43.5, RDW Coeff of Peggy 13.6, Plt Count 190, MPV 10.7, Immature Gran % (Auto) 0.700, Neut % (Auto) 62.3, Lymph % (Auto) 23.3, [place] % (Auto) 10.8 H, Eos % (Auto) 1.9, Baso % (Auto) 1.0, Absolute Neuts (auto) 4.6, Absolute Lymphs (auto) 1.70, Nucleated RBC % 0, Sodium Cancelled, Potassium Cancelled, Chloride Cancelled, Carbon Dioxide Cancelled, Anion Gap Cancelled, BUN Cancelled, Creatinine Cancelled, Estim Creat Clear Calc Cancelled, Est GFR (MDRD) Non-Af Cancelled, BUN/Creatinine Ratio Cancelled, Glucose Cancelled, Calcium Cancelled, Total Bilirubin Cancelled, Direct Bilirubin Cancelled, AST Cancelled, ALT Cancelled, Alkaline Phosphatase Cancelled, Troponin T High Sens Cancelled, Total Protein Cancelled, Albumin Cancelled, Globulin Cancelled, TSH Cancelled, Free T4 Cancelled, Free T3 pg/dL Cancelled 09/27/24 13:25: Sodium 139, Potassium 4.7, Chloride 102, Carbon Dioxide 27.5, Anion Gap 9, BUN 36 H, Creatinine 3.11 H, Estim Creat Clear Calc 12.74 L, Est GFR (MDRD) Non-Af 20 L, BUN/Creatinine Ratio 11.5, Glucose 109 H, Calcium 10.0, Total Bilirubin 0.31, Direct Bilirubin 0.14, AST 15, ALT 6, Alkaline Phosphatase 54, Troponin T High Sens 103 H*, Total Protein 6.7, Albumin 3.7, Globulin 3.0, TSH 1.930, Free T4 1.20, Free T3 pg/dL 2.5 09/27/24 15:27: Troponin T Hi Sens 2 Hr 93 H* 09/27/24 17:27: Troponin T Hi Sens 4Hr 87 H* Imaging Radiology Impression Chest X-Ray 09/27/24 12:30 IMPRESSION: Left thoracic transvenous pacemaker with atrial and ventricular leads appears stable. Lungs are somewhat hypoinflated, but appear clear of acute disease. No pleural effusion or pneumothorax is noted. The cardiomediastinal silhouette is stable, without evidence of cardiomegaly. No interval osseous change is seen. Reading Location: [facility] Assessment & Plan Assessment/Plan (1) Near syncope: PLAN: Plan # Presyncope -admit to telemetry -EGK normal sinus rhythm with a right bundle branch block and left anterior fascicular block -orthostatic vital signs positive with vitals while standing 137/82 and dropped to 99/65 - Interrogate pacer if not already done in the ED - Patient received IV fluids - Unclear if this is medication related or due to some other underlying etiology, will need to clarify patient's med list is and if there have been any recent changes - Check echo - Check UA - TSH within normal limits - Repeat orthostats in the a.m. # CKD stage IV - Values similar over the past 2 weeks but were in the mid 2 range prior to that - May need outpatient referral to long wall shear operator if he does not already follow with 1 #Elevated troponin - Patient denies any chest pain, will have pacemaker interrogated if not already done in the ED, did not see a full report on chart available at time of evaluation - Troponins downtrending - May be due to episodes of hypotension leading to strain given patient's underlying cardiac history - Monitoring on telemetry #Type 2 diabetes mellitus -Glucose checks and sliding scale insulin - Continue long-acting insulin, may resume at slightly lower dose given glucose only 109 in the ED and is unclear if patient's glucose may have been running low during any of these episodes of lightheadedness as he seems unsure exactly what he takes insulin foster and what is glucoses have been running # History of ischemic cardiomyopathy and AICD -Will need to verify patient's home medications -Daily weights, I's and O's -Holding Lasix -Last echo in 2021 with EF of 55 and wall motion abnormalities -Repeating echo as above #Hx COPD -Continue home inhalers -Incentive spirometer #Hypothyroidism -Continue Synthroid #GERD -Continue PPI #DVT ppx: Patient chronically on full dose Tj Antunez MD Charges/Coding Visit Charges Inpatient E&M: 45458 Init Hosp L2
--- NOTE | 2024-09-27 20:18 | ECHOD_ITS ---
Reason For Study Reason For Study: SYNCOPE Procedure This was a 2D Doppler, Color Flow transthoracic echocardiogram. Myocardial strain analysis was performed in this exam to aid in the assessment of cardiac function. Exam performed portable in patient room. Left Ventricle Normal LV size. The left ventricular ejection fraction is 50 %. Stage 1 diastolic dysfunction. There are regional wall motion abnormalities as specified. Posterior-Basal: Aneurysmal. Infero-Basal: Aneurysmal. Right Ventricle Normal RV size. ICD or pacer leads identified within the right ventricle. The right ventricle is normal in size, function, and thickness. Atria The left atrium is mildly enlarged. Normal right atrium. Mitral Valve Normal mitral valve. Tricuspid Valve Normal tricuspid valve. Aortic Valve Trisinus/trileaflet aortic valve. Mild focal aortic valve calcification. Pulmonic Valve Normal pulmonic valve. Great Vessels Normal aortic root. The pulmonary artery is normal size. Inferior vena cava collapse with respiration. Pericardium/Pleural No pericardial effusion. MMode/2D Measurements & Calculations LVIDd: 5.3 cm IVSd: 1.3 cm LVOT diam: 2.2 cm LVIDs: 3.4 cm LVPWd: 1.0 cm LVOT area: 3.7 cm2 RVDd: 3.5 cm FS: 35.7 % asc Aorta Diam: 3.6 cm LAV(MOD-bp): 65.6 ml LVAd ap4: 22.1 cm2 LAV(MOD-bp) Indexed: 29.4 ml/m2 LVLd ap4: 7.2 cm LAV(MOD-sp2): 67.7 ml EDV(MOD-sp4): 57.0 ml LAV(MOD-sp4): 62.1 ml EDV(sp4-el): 57.3 ml LVAs ap4: 13.9 cm2 LVLs ap4: 6.0 cm ESV(MOD-sp4): 27.9 ml ESV(sp4-el): 27.4 ml EF(MOD-sp4): 51.0 % EF(sp4-el): 52.2 % LVAd ap2: 25.4 cm2 SV(MOD-sp4): 29.1 ml SV(MOD-sp2): 25.5 ml LVLd ap2: 7.5 cm SI(MOD-sp4): 13.0 ml/m2 SI(MOD-sp2): 11.4 ml/m2 EDV(MOD-sp2): 77.5 ml EDV(sp2-el): 73.1 ml LVAs ap2: 19.4 cm2 LVLs ap2: 6.7 cm ESV(MOD-sp2): 52.0 ml ESV(sp2-el): 48.0 ml EF(MOD-sp2): 32.9 % SV(sp4-el): 29.9 ml Ao sinus diam: 3.[address] Junction: 2.7 cm LA dimension(2D): 4.3 cm LA A4 area: 21.2 cm2 RA A4 area: 13.3 cm2 TAPSE: 1.9 cm Time Measurements MV dec time: 0.12 sec Doppler Measurements & Calculations MV E max tony: 53.6 cm/sec Lat Peak E' Tony: 5.5 cm/sec Med Peak E' Tony: 4.3 cm/sec MV A max tony: 109.0 cm/sec E/E' lat: 9.7 E/E' med: 12.3 MV E/A: 0.49 MV dec slope: 431.4 cm/sec2 Ao V2 max: 140.2 cm/sec LV V1 max: 84.0 cm/sec Ao max P.9 mmHg LV V1 max P.8 mmHg Ao V2 mean: 96.5 cm/sec LV V1 mean P.6 mmHg Ao mean P.3 mmHg LV V1 mean: 60.5 cm/sec Ao V2 VTI: 31.7 cm LV V1 VTI: 16.9 cm AV (velocity ratio): 0.53 KEO(I,D): 2.0 cm2 KEO(V,D): 2.2 cm2 SV(LVOT): 63.5 ml PA V2 max: 74.8 cm/sec ECHO/Echo Complete Interpretation Summary Normal LV size. The left ventricular ejection fraction is 50 %. Stage 1 diastolic dysfunction. There are regional wall motion abnormalities as specified. Compared to previous study, the left ventricular systolic function is the same. . Ordering Physician: Cecy Antunez Referring Physician: Nathen Chang MD Performed By: Jessi Loaiza RDCS
[2024-09-27 22:22] LABS: Bedside Glucose 283 mg/dL (74-106)
[2024-09-27] MEDS: Acetaminophen 325 MG Tablet 650 MG PO (22:56)
[2024-09-27] MEDS: APIXABAN 2.5 MG TABLET (WCH) PO (22:56)
[2024-09-27] MEDS: Atorvastatin Calcium 40 MG Tablet PO (22:56)
[2024-09-27] MEDS: MELATONIN 10 MG TABLET PO (22:56)
[2024-09-27] MEDS: Insulin Lispro 100 UNIT/ML INSULN.PEN SC (22:57)
[2024-09-27] MEDS: Insulin Glargine-YFGN 100 UNIT/ML Pen 10 UNIT SC (22:57)
[2024-09-27] MEDS: 0.9% Saline Lock 10 ML Syringe IV (22:58)
[2024-09-27 23:20] LABS: Mucous, Urine 0 SEEN /hpf (<or=2+)
[2024-09-27 23:25] LABS: Color, Urine Yellow (Yellow); Glucose, Dipstick 250 mg/dl (Normal); Ketone-Dipstick Negative (Negative); Leukocyte Esterase-Dipstick Negative /ul (Negative); Nitrite-Dipstick Negative (Negative); Occult Blood-Urine 25 /ul (Negative); Protein-Dipstick 100 mg/dl (Negative); Specific Gravity, Urine 1.015 (1.002-1.030); Urine Bilirubin Dipstick Negative (Negative); Urine Clarity Clear (Clear); Urine Urobilinogen Normal (Normal)
[2024-09-27 23:47] LABS: Bacteria RARE /hpf (None Seen); Red Blood Cells-Urine 0-5 SEEN /hpf (0-5); Squamous Epithelial Cells - UA 0-5 SEEN /hpf (0-5); White Blood Cells 0-5 SEEN /hpf (0-5)
[2024-09-28 03:00] VITALS: BP 115/73; PULSE 71; RESP 16; TEMP 36.7; O2SAT 94
[2024-09-28 03:09] VITALS: BMI 30.4
[2024-09-28 05:02] LABS: Absolute Neutrophil Count 3.6 X10^3/uL (2.0-7.7); Basophil# 0.05 X10^3/uL; Basophil% 0.8 % (0-1); Eosinophil# 0.12 X10^3/uL; Hematocrit 36.6 % (40-54); Hemoglobin 12.1 g/dL (13.0-16.5); Lymphocyte % 23.6 % (19-41); Mean Corp Hgb Conc 33.1 g/dL (32-36); Mean Corpuscular Hgb 29.5 pg (27.0-32.0); Mean Corpuscular Volume 89.3 fL (80-94); Mean Platelet Vol. 10.4 fl (6.2-12.0); Monocyte# 0.68 X10^3/uL; Monocyte% 11.5 % (0-10); NRBC Flagged by Analyzer 0 % (0-5); Neutrophil # 3.62 X10^3/uL (2.7-7.7); Neutrophil % 61.3 % (47-70); Platelet Count 150 K/mm3 (150-450); RBC Distribution Width CV 13.6 % (11.6-14.6); RBC Distribution Width SD 44.2 fl (35.1-43.9); White Blood Count 5.9 K/mm3 (4.4-11.0)
[2024-09-28 05:44] LABS: Anion Gap 10 (5-15); BUN 36 mg/dL (4-19); BUN/Creat Ratio 11.8 RATIO (10-20); Calcium,Total 9.3 mg/dL (7.6-11.0); Carbon Dioxide 23.4 mmol/L (21.0-32.0); Chloride 101 mmol/L (98-108); Creatinine, Serum 3.03 mg/dL (0.70-1.20); EST Glomerular Filtration Rate 20 (>60); Estimated Creatinine Clearance 24.78 ml/min (50-250); Glucose 283 mg/dL (70-99); Potassium 5.2 mmol/L (3.3-5.1); Sodium Level 135 mmol/L (133-145)
[2024-09-28 06:34] VITALS: BP 126/74; BP 131/73; BP 146/73; PULSE 73; PULSE 76
[2024-09-28] MEDS: Levothyroxine 100 MCG Tablet PO (06:44)
[2024-09-28] MEDS: Insulin Lispro 100 UNIT/ML INSULN.PEN SC ×6 (08:08→16:48)
[2024-09-28] MEDS: APIXABAN 2.5 MG TABLET (WCH) PO (08:10)
[2024-09-28] MEDS: Pantoprazole Sodium 40 MG Tablet PO (08:10)
[2024-09-28] MEDS: Clopidogrel Bisulfate 75 MG Tablet PO (08:10)
[2024-09-28] MEDS: Carvedilol 12.5 MG Tablet PO ×2 (08:12→16:48)
[2024-09-28 08:13] VITALS: BP 151/75; PULSE 78; RESP 14; TEMP 36.4; O2SAT 97
[2024-09-28] MEDS: 0.9% Normal Saline (500mL Bag) 500 ML 999 ML IV (08:30)
[2024-09-28] MEDS: 0.9% Saline Lock 10 ML Syringe IV (08:30)
[2024-09-28 08:36] LABS: Bedside Glucose 272 mg/dL (74-106)
[2024-09-28 11:49] LABS: Bedside Glucose 301 mg/dL (74-106)
[2024-09-28 14:30] VITALS: BP 145/75; PULSE 70; RESP 14; TEMP 36.4; O2SAT 95
[2024-09-28] MEDS: Acetaminophen 325 MG Tablet 650 MG PO (14:33)
--- NOTE | 2024-09-28 16:57 | CASEMGMT ---
Patient has order for discharge. RN CM in to discuss needs at discharge. Patient denies needs or help at discharge. Patient had no further questions or concerns.
--- NOTE | 2024-09-28 16:59 | DCINST_ITS ---
Discharge Instructions Diet Discharge Diet: 1800 Calorie Control Diet DC O2, CPAP, BIPAP needs Home O2 Discharge instructions: No Dressing / Incision Discharge Activity: Return to Normal Activity Weight Bearing Status: Full weight bearing Follow Up Care Test Results: Test results from this visit will be discussed in further detail at your follow- up appointment, if applicable. Discharge Plan Admission Admit Date/Time: 09/27/24 18:41 Primary Reason for Your Visit: presyncope Attending Provider: Gerardo Valencia Primary Care Provider: Nathen Chang Consulting Providers: Cecy Antunez Discharge Orders/Prescriptions Prescriptions: Continued fexofenadine-pseudoephedrine 1 TAB.SR tablet extended release 24 hr 1 tab PO DAILY PRN (Reason: ALLERGIES ) acetaminophen [Tylenol Extra Strength] 500 mg tablet 1,000 mg PO Q6H PRN (Reason: PAIN ) Qty: 20 0RF rosuvastatin 20 mg tablet 20 mg PO DAILY Qty: 30 2RF pyridoxine (vitamin B6) 50 mg tablet 50 mg PO TIDCM magnesium oxide 400 mg magnesium tablet 400 mg PO QHS clopidogrel 75 mg tablet 75 mg PO DAILY L.acidoph,saliva-B.bif-S.therm 175 mg Capsule 1 cap PO BID Qty: 0 0RF Rx Instructions: Probiotic advised with [id number] Combivent Respimat 20-100 mcg/actuation mist 2 puff inhalation Q6H PRN (Reason: shortness of breath or wheezing) Qty: 4 0RF insulin glargine 100 unit/mL (3 mL) Insulin Pen 50 unit SUBCUT QPM 30 Days Qty: 0 0RF insulin lispro [Humalog KwikPen Insulin] 100 unit/mL insulin pen 30 unit subcut TIDAC 30 Days Qty: 0 0RF Rx Instructions: Hold if glucose less than 130 mg/dl pantoprazole [Protonix] 40 mg tablet,delayed release (DR/EC) 40 mg PO DAILY 30 Days Qty: 30 0RF levothyroxine 100 mcg tablet 100 mcg PO DAILY cholecalciferol (vitamin D3) 125 mcg (5,000 unit) tablet 125 mcg PO DAILY torsemide 20 mg tablet 20 mg PO DAILY fluorometholone 0.1 % drops,suspension 1 drp ophthalmic (eye) BID albuterol sulfate 90 mcg/actuation HFA aerosol inhaler 1 puff INHALATION 4X/DAY PRN PRN (Reason: shortness of breath or wheezing) (DME) True Metrix Glucose Test Strip Strip MISCELLANEOUS Patient Comments: [NO ORIGINAL SIG] insulin glargine U-300 conc [Toujeo SoloStar U-300 Insulin] 300 unit/mL (1.5 mL) insulin pen 30 unit subcut BID Trav Maier U-200 Insulin 200 unit/mL (3 mL) insulin pen SUBCUT Patient Comments: INJECT 60 units per breakfast and lunch; and 10units per snack (up to twice daily) or/and 30 units supper, max daily dose 240 Unit ondansetron HCl 8 mg tablet 4 - 8 mg PO Q8 Ozempic 0.25 mg or 0.5 mg (2 mg/3 mL) pen injector 0.5 mg subcut QWEEK carvedilol 25 mg tablet 25 mg PO BID Qty: 30 1RF Patient Comments: 1/2 tab twice daily Rx Instructions: Short term supply-waiting on mail order to arrive Eliquis 2.5 mg tablet 2.5 mg PO BID Qty: 180 3RF Discontinued furosemide [Lasix] 40 mg tablet 40 mg PO DAILY 30 Days Qty: 30 0RF prednisone 10 mg tablet See Taper PO DAILY Qty: 30 0RF Taper: Prednisone Taper 50 mg WITH BREAKFAST for 5 Days and 0 Hour 40 mg WITH BREAKFAST for 5 Days and 0 Hour 30 mg WITH BREAKFAST for 5 Days and 0 Hour 20 mg WITH BREAKFAST for 5 Days and 0 Hour 10 mg WITH BREAKFAST for 5 Days and 0 Hour spironolactone 50 mg tablet 50 mg PO QPM mifepristone 300 mg tablet 300 mg PO DAILY Patient Comments: @ supper when eliquis 2.5mg and spironolactone ready Referrals / Follow Up: Nathen Chang MD [Primary Care Provider] - Within 2 Weeks Disposition Disposition (needs filled in before D/C Order can be placed): Home, Self Care
[2024-09-28 17:06] VITALS: BP 150/71; PULSE 79; RESP 14; TEMP 36.6; O2SAT 96
--- NOTE | 2024-09-28 17:06 | DS.PCM_ITS ---
Providers Date of Admission: 09/27/24 Date of Discharge: 09/28/24 Primary Care Physician: Dr. Nathen Chang MD Reason For Visit: ORTHOSTATIC HYPOTENSION PRESYNCOPE Diagnosis Discharge Diagnosis (1) Near syncope: Status: Inactive Code(s): R55 - Syncope and collapse Plan 1. Presyncope secondary to orthostatic hypotension #2 chronic kidney disease stage IV #3 elevated troponin-etiology unclear #4 type 2 diabetes #4 ischemic cardiomyopathy #5 COPD Medications at Discharge Home Medications fexofenadine-pseudoephedrine ER 180 mg-240 mg tablet,ext.release 24 hr 1 tab PO DAILY PRN ALLERGIES 01/20/16 acetaminophen 500 mg tablet (Tylenol Extra Strength) 1,000 mg (2 x 500 mg) PO Q6H PRN PAIN #20 tabs 10/22/21 rosuvastatin 20 mg tablet 20 mg PO DAILY CHOLESTEROL #30 tabs 02/03/22 magnesium oxide 400 mg PO QHS SUPPLEMENT 12/27/22 pyridoxine (vitamin B6) 50 mg tablet 50 mg PO TIDCM SUPPLEMENT 12/27/22 clopidogrel 75 mg tablet 75 mg PO DAILY BLOOD THINNER 08/06/23 cholecalciferol (vitamin D3) 125 mcg (5,000 unit) tablet 125 mcg PO DAILY SUPPLEMENT 08/12/23 levothyroxine 100 mcg tablet 100 mcg PO DAILY THYROID 08/12/23 L.acidophil,salivari-Bifido bifidum-Strep thermoph 175 mg capsule 1 cap PO BID #0 caps 08/18/23 insulin glargine 100 unit/mL (3 mL) subcutaneous pen 50 unit (0.5 mL) subcut QPM DIABETES 30 days #0 mL 08/18/23 insulin lispro 100 unit/mL subcutaneous pen (Humalog KwikPen (U-100) Insulin) 30 unit (0.3 mL) subcut TIDAC DIABETES 30 days #0 mL 08/18/23 ipratropium 20 mcg-albuterol 100 mcg/actuation mist for inhalation (Combivent Respimat) 2 puff inhalation Q6H PRN shortness of breath or wheezing #4 grams 08/18/23 pantoprazole 40 mg tablet,delayed release (Protonix) 40 mg PO DAILY 1 month #30 tabs 08/18/23 carvedilol 25 mg tablet 25 mg PO BID blood pressure #30 TABLETS 02/08/24 apixaban 2.5 mg tablet (Eliquis) 2.5 mg PO BID blood thinner #180 tabs 08/02/24 torsemide 20 mg tablet 20 mg PO DAILY diuretic 09/27/24 albuterol sulfate 90 mcg/actuation aerosol inhaler 1 puff inhalation 4X/DAY PRN PRN shortness of breath or wheezing 09/28/24 blood sugar diagnostic (True Metrix Glucose Test Strip) 09/28/24 fluorometholone 0.1 % eye drops,suspension 1 drp ophthalmic (eye) BID eye health 09/28/24 insulin glargine U-300 conc 300 unit/mL (1.5 mL) subcutaneous pen (Toujeo SoloStar U-300 Insulin) 30 unit subcut BID diabetes 09/28/24 insulin lispro-aabc 200 unit/mL (3 mL) subcutaneous pen (Lyumjev KwikPen U-200 Insulin) subcut diabetes 09/28/24 ondansetron HCl 8 mg tablet 4 - 8 mg PO Q8 nausea 09/28/24 semaglutide 0.25 mg or 0.5 mg (2 mg/3 mL) subcutaneous pen injector (Ozempic) 0.5 mg subcut QWEEK diabetes 09/28/24 Hospital Course Operations None Procedures 2-D Echocardiogram Summary of Care Provided Minutes Spent on Discharge: 31 Hospital Course: 78-year-old white male was seen in the emergency room at [facility] with complaints of lightheadedness. Workup in the emergency room included a CBC which was unremarkable, creatinine was 3.11 which was similar to previous creatinine readings. Troponin was 103 and second troponin was 87. Patient stated that he was started on a new medication approximately 3 weeks prior and has not felt well on this medication. Patient denied any actual syncope. Patient was unsure of his medications. EKG showed normal sinus rhythm with a right bundle branch block and a left anterior fascicular block. Patient's blood pressure showed a drop to 99/65 while standing, patient's blood pressure while lying it was 137/82. Patient was placed in observation status on PCU, echocardiogram was obtained which showed an ejection fraction of 50, patient received IV fluids. On 09/28/2024, patient was seen and examined: On examination he appeared in good health and spirits. Vital signs as documented. Skin warm and dry and without overt rashes. Neck without JVD, neck was supple, trachea midline, thyroid was normal. Lungs clear bilaterally, normal air movement was noted. Heart exam notable for regular rhythm, normal sounds and absence of murmurs, rubs or gallops. Abdomen unremarkable and without evidence of organomegaly, masses, or abdominal aortic enlargement. Bowel sounds are present, abdomen is not distended. Extremities nonedematous, no cyanosis was noted, no clubbing was noted. Neuro: Cranial nerves II through XII are grossly intact, no focal motor deficits were noted, sensation to light touch and pinprick intact, motor exam 5/5 throughout. Psych: Patient is alert and oriented x3, he does not appear anxious or depressed, he does not appear agitated. Patient was discharged home in stable condition, at the time of discharge I discontinued several medications which I did not feel the patient needed. These included diuretics and mifepristone. I also contacted the patient's PCP (Dr. Chang) about his medical care on the hospital and the medication changes. Weight / BMI Weight Weight: 101.6 kg Body Mass Index (BMI) 30.4 ABG / Lab / Microbiology Data 09/28/24 04:27 09/28/24 04:27 Laboratory: Laboratory Results - last 24 hr 09/27/24 17:27: Troponin T Hi Sens 4Hr 87 H* 09/27/24 20:39: POC Glucose 283 H 09/27/24 23:02: Urine Color Yellow, Urine Clarity Clear, Urine pH 6.0, Ur Specific [place] 1.015, Urine Protein 100 H, Urine Glucose (UA) 250 H, Urine Ketones Negative, Urine Occult Blood 25 H, Urine Nitrite Negative, Urine Bilirubin Negative, Urine Urobilinogen Normal, Ur Leukocyte Esterase Negative, Urine RBC 0-5 SEEN, Urine WBC 0-5 SEEN, Ur Squamous Epith Cells 0-5 SEEN, Urine Bacteria RARE, Urine Mucus 0 SEEN 09/28/24 04:27: WBC 5.9, RBC 4.10 L, Hgb 12.1 L, Hct 36.6 L, MCV 89.3, MCH 29.5, MCHC 33.1, RDW Std Deviation 44.2 H, RDW Coeff of Peggy 13.6, Plt Count 150, MPV 10.4, Immature Gran % (Auto) 0.800, Neut % (Auto) 61.3, Lymph % (Auto) 23.6, M anny % (Auto) 11.5 H, Eos % (Auto) 2.0, Baso % (Auto) 0.8, Absolute Neuts (auto) 3.6, Absolute Lymphs (auto) 1.40, Nucleated RBC % 0, Sodium 135, Potassium 5.2 H , Chloride 101, Carbon Dioxide 23.4, Anion Gap 10, BUN 36 H, Creatinine 3.03 H, Estim Creat Clear Calc 24.78 L, Est GFR (MDRD) Non-Af 20 L, BUN/Creatinine Ratio 11.8, Glucose 283 H, Calcium 9.3 09/28/24 08:06: POC Glucose 272 H 09/28/24 11:29: POC Glucose 301 H Microbiology: Microbiology 09/27/24 23:02 Urine, Clean Catch Urine Culture - Final Mixed Gram Positive Organisms Radiography Diagnostic Testing: Radiology Impression Echocardiogram 09/27/24 20:18 Interpretation Summary Normal LV size. The left ventricular ejection fraction is 50 %. Stage 1 diastolic dysfunction. There are regional wall motion abnormalities as specified. Compared to previous study, the left ventricular systolic function is the same.. Ordering Physician: Cecy Antunez Referring Physician: Nathen Chang MD Performed By: Jessi Loaiza RDCS D/C Instructions Discharge Diet: 1800 Calorie Control Diet Weight Bearing Status: Full weight bearing DC O2, CPAP, BIPAP Needs Home O2 Discharge instructions: No Meaningful Use Info Meaningful Use Meaningful Use Diagnoses (Choose all that apply): None applicable Ischemic Stroke Statin Dosing Therapy Reference: STATIN DOSE THERAPY REFERENCE: * Patients > 75 years receive moderate or high dose statin therapy. * Patients 75 years or YOUNGER should receive HIGH intensity statin dose unless contraindicated. You will be required to document reason for non-treatment if statin daily dose does not meet guidelines. HIGH DOSE STATIN THERAPY DAILY Atorvastatin > than or = to 40 mg Rosuvastatin > than or = to 20 mg Amlodipine + Atorvastatin > than or = to 2.5/40 mg Ezetimibe + Simvastatin 10/80 mg Simvastatin 80mg Discharge Plan Admission Admit Date/Time: 09/27/24 18:41 Primary Reason for Your Visit: presyncope Attending Provider: Gerardo Valencia Primary Care Provider: Nathen Chang Consulting Providers: Cecy Antunez Discharge Orders/Prescriptions Prescriptions: Continued fexofenadine-pseudoephedrine 1 TAB.SR tablet extended release 24 hr 1 tab PO DAILY PRN (Reason: ALLERGIES ) acetaminophen [Tylenol Extra Strength] 500 mg tablet 1,000 mg PO Q6H PRN (Reason: PAIN ) Qty: 20 0RF rosuvastatin 20 mg tablet 20 mg PO DAILY Qty: 30 2RF pyridoxine (vitamin B6) 50 mg tablet 50 mg PO TIDCM magnesium oxide 400 mg magnesium tablet 400 mg PO QHS clopidogrel 75 mg tablet 75 mg PO DAILY L.acidoph,saliva-B.bif-S.therm 175 mg Capsule 1 cap PO BID Qty: 0 0RF Rx Instructions: Probiotic advised with [id number] Combivent Respimat 20-100 mcg/actuation mist 2 puff inhalation Q6H PRN (Reason: shortness of breath or wheezing) Qty: 4 0RF insulin glargine 100 unit/mL (3 mL) Insulin Pen 50 unit SUBCUT QPM 30 Days Qty: 0 0RF insulin lispro [Humalog KwikPen Insulin] 100 unit/mL insulin pen 30 unit subcut TIDAC 30 Days Qty: 0 0RF Rx Instructions: Hold if glucose less than 130 mg/dl pantoprazole [Protonix] 40 mg tablet,delayed release (DR/EC) 40 mg PO DAILY 30 Days Qty: 30 0RF levothyroxine 100 mcg tablet 100 mcg PO DAILY cholecalciferol (vitamin D3) 125 mcg (5,000 unit) tablet 125 mcg PO DAILY torsemide 20 mg tablet 20 mg PO DAILY fluorometholone 0.1 % drops,suspension 1 drp ophthalmic (eye) BID albuterol sulfate 90 mcg/actuation HFA aerosol inhaler 1 puff INHALATION 4X/DAY PRN PRN (Reason: shortness of breath or wheezing) (DME) True Metrix Glucose Test Strip Strip MISCELLANEOUS Patient Comments: [NO ORIGINAL SIG] insulin glargine U-300 conc [Toujeo SoloStar U-300 Insulin] 300 unit/mL (1.5 mL) insulin pen 30 unit subcut BID Trav Maier U-200 Insulin 200 unit/mL (3 mL) insulin pen SUBCUT Patient Comments: INJECT 60 units per breakfast and lunch; and 10units per snack (up to twice daily) or/and 30 units supper, max daily dose 240 Unit ondansetron HCl 8 mg tablet 4 - 8 mg PO Q8 Ozempic 0.25 mg or 0.5 mg (2 mg/3 mL) pen injector 0.5 mg subcut QWEEK carvedilol 25 mg tablet 25 mg PO BID Qty: 30 1RF Patient Comments: 1/2 tab twice daily Rx Instructions: Short term supply-waiting on mail order to arrive Eliquis 2.5 mg tablet 2.5 mg PO BID Qty: 180 3RF Discontinued furosemide [Lasix] 40 mg tablet 40 mg PO DAILY 30 Days Qty: 30 0RF prednisone 10 mg tablet See Taper PO DAILY Qty: 30 0RF Taper: Prednisone Taper 50 mg WITH BREAKFAST for 5 Days and 0 Hour 40 mg WITH BREAKFAST for 5 Days and 0 Hour 30 mg WITH BREAKFAST for 5 Days and 0 Hour 20 mg WITH BREAKFAST for 5 Days and 0 Hour 10 mg WITH BREAKFAST for 5 Days and 0 Hour spironolactone 50 mg tablet 50 mg PO QPM mifepristone 300 mg tablet 300 mg PO DAILY Patient Comments: @ supper when eliquis 2.5mg and spironolactone ready Referrals / Follow Up: Nathen Chang MD [Primary Care Provider] - Within 2 Weeks Disposition Disposition (needs filled in before D/C Order can be placed): Home, Self Care Charges/Coding Visit Charges Inpatient E&M: 26558 Disch Hosp >30min
[2024-09-28 17:14] LABS: Bedside Glucose 319 mg/dL (74-106)
== END 2024-09-28 18:00 | disposition home or self-care (01) ==
LOC: ED 17:42 → PCU 17:56
PROVIDERS: Admitting Provider Internal Medicine; Emergency Provider Emergency Medicine; PCP Family Medicine; Visit Provider Internal Medicine
DX: I95.1 Orthostatic hypotension (principal); N18.4 Chronic kidney disease, stage 4 (severe); I50.32 Chronic diastolic (congestive) heart failure; I13.0 Hypertensive heart and chronic kidney disease with heart failure and stage 1 through stage 4 chronic kidney disease, or unspecified chronic kidney disease; J44.9 Chronic obstructive pulmonary disease, unspecified; Z79.4 Long term (current) use of insulin; E11.22 Type 2 diabetes mellitus with diabetic chronic kidney disease; Z87.891 Personal history of nicotine dependence; I45.2 Bifascicular block; I25.5 Ischemic cardiomyopathy; Z79.02 Long term (current) use of antithrombotics/antiplatelets; Z79.890 Hormone replacement therapy; E78.5 Hyperlipidemia, unspecified; I25.10 Atherosclerotic heart disease of native coronary artery without angina pectoris; Z79.01 Long term (current) use of anticoagulants; Z95.810 Presence of automatic (implantable) cardiac defibrillator; Z79.899 Other long term (current) drug therapy; E03.9 Hypothyroidism, unspecified; Z86.74 Personal history of sudden cardiac arrest; I25.2 Old myocardial infarction; R79.89 Other specified abnormal findings of blood chemistry
CPT/HCPCS: 36415; 71046; 80048; 80076; 81001; 82962; 84439; 84443; 84481; 84484; 85025; 87086; 87088; 93005; 93306; 96360; 96361; 97161; 97165; 99221; 99285; A4216; G0378

== ENCOUNTER → 2024-09-27 | Outpatient (CLI) | payer MEDICARE, MEDICAID, SELFPAY ==
[2024-09-27 13:29] LABS: Anion Gap 16 (5-15); BUN 36 mg/dL (4-19); BUN/Creat Ratio 11.2 RATIO (10-20); Calcium,Total 10.4 mg/dL (7.6-11.0); Carbon Dioxide 21.3 mmol/L (21.0-32.0); Chloride 99 mmol/L (98-108); Creatinine, Serum 3.16 mg/dL (0.70-1.20); EST Glomerular Filtration Rate 19 (>60); Glucose 245 mg/dL (70-99); Potassium 4.7 mmol/L (3.3-5.1); Sodium Level 136 mmol/L (133-145)
== END | disposition home or self-care (01) ==
LOC: MFPLAB 09:52
PROVIDERS: PCP Family Medicine; Referring Provider Family Medicine; Visit Provider Family Medicine
DX: E11.9 Type 2 diabetes mellitus without complications (principal)
CPT/HCPCS: 36415; 80048

== ENCOUNTER → 2024-10-04 | Outpatient (CLI) | payer MEDICARE, MEDICAID, SELFPAY ==
[2024-10-04 18:28] LABS: AST(SGOT) 16 U/L (<=37); Alanine Aminotransfer ALT/SGPT 7 U/L (<=46); Albumin, Serum 3.8 g/dL (3.4-4.8); Alkaline Phosphatase 52 U/L (40-129); Anion Gap 12 (5-15); BUN 39 mg/dL (4-19); BUN/Creat Ratio 13.1 RATIO (10-20); CRP 3.75 mg/L (0.0-3.0); Calcium,Total 9.7 mg/dL (7.6-11.0); Carbon Dioxide 24.7 mmol/L (21.0-32.0); Chloride 98 mmol/L (98-108); Globulin 3.2 g/dL (2.2-4.2); Glucose 326 mg/dL (70-99); Hematocrit 41.9 % (40-54); Hemoglobin 13.5 g/dL (13.0-16.5); Immature Granulocytes Count 0.030 X10^3/uL (0.0-0.0); Mean Corp Hgb Conc 32.2 g/dL (32-36); Mean Corpuscular Volume 90.1 fL (80-94); Mean Platelet Vol. 10.5 fl (6.2-12.0); NRBC Flagged by Analyzer 0 % (0-5); Platelet Count 189 K/mm3 (150-450); Potassium 5.2 mmol/L (3.3-5.1); RBC Distribution Width CV 13.8 % (11.6-14.6); RBC Distribution Width SD 45.6 fl (35.1-43.9); Red Blood Count 4.65 M/mm3 (4.6-6.2); White Blood Count 6.3 K/mm3 (4.4-11.0)
== END | disposition home or self-care (01) ==
LOC: MFPLAB 15:44
PROVIDERS: PCP Family Medicine; Referring Provider Family Medicine; Visit Provider Family Medicine
DX: R53.83 Other fatigue (principal)
CPT/HCPCS: 36415; 80053; 84443; 85025; 86140

== ENCOUNTER → 2024-10-06 | Outpatient (CLI) | payer MEDICARE, MEDICAID, SELFPAY ==
[2024-10-06 12:56] LABS: Anion Gap 12 (5-15); BUN 38 mg/dL (4-19); BUN/Creat Ratio 13.1 RATIO (10-20); Calcium,Total 9.7 mg/dL (7.6-11.0); Carbon Dioxide 23.7 mmol/L (21.0-32.0); Chloride 101 mmol/L (98-108); Glucose 330 mg/dL (70-99); Potassium 4.8 mmol/L (3.3-5.1)
== END | disposition home or self-care (01) ==
LOC: MFPLAB 11:10
PROVIDERS: PCP Family Medicine; Referring Provider Family Medicine; Visit Provider Family Medicine
DX: E87.8 Other disorders of electrolyte and fluid balance, not elsewhere classified (principal)
CPT/HCPCS: 36415; 80048

== ENCOUNTER → 2024-11-25 | Outpatient (CLI) | payer MEDICARE, MEDICAID, SELFPAY ==
[2024-11-25 15:16] LABS: Hematocrit 42.0 % (40-54); Hemoglobin 14.0 g/dL (13.0-16.5); Immature Granulocytes Count 0.040 X10^3/uL (0.0-0.0); Mean Corp Hgb Conc 33.3 g/dL (32-36); Mean Corpuscular Volume 90.3 fL (80-94); Mean Platelet Vol. 10.4 fl (6.2-12.0); NRBC Flagged by Analyzer 0 % (0-5); Platelet Count 180 K/mm3 (150-450); RBC Distribution Width CV 13.7 % (11.6-14.6); RBC Distribution Width SD 45.3 fl (35.1-43.9); Red Blood Count 4.65 M/mm3 (4.6-6.2); White Blood Count 8.0 K/mm3 (4.4-11.0)
[2024-11-25 15:29] LABS: Creatinine, Urine (random) 78.20 mg/dL (39.00-259.00)
[2024-11-25 15:37] LABS: AST(SGOT) 32 U/L (<=37); Alanine Aminotransfer ALT/SGPT 26 U/L (<=46); Albumin, Serum 3.7 g/dL (3.4-4.8); Alkaline Phosphatase 50 U/L (40-129); Anion Gap 11 (5-15); BUN 40 mg/dL (4-19); BUN/Creat Ratio 13.5 RATIO (10-20); Calcium,Total 9.7 mg/dL (7.6-11.0); Carbon Dioxide 24.7 mmol/L (21.0-32.0); Chloride 100 mmol/L (98-108); Cholesterol 107 mg/dL (<=200); Globulin 3.0 g/dL (2.2-4.2); Glucose 300 mg/dL (70-99); Low Density Lipoprotein Calc. 36 mg/dL; Potassium 5.7 mmol/L (3.3-5.1); Triglycerides 159 mg/dL; Very Low Density Lipoprotein 32 mg/dL (5-40); cholesterol:hdl ratio screen 2.70
[2024-11-25 15:41] LABS: Microalbumin,Random Urine 1311.0 mg/L (<20 mg/L)
== END | disposition home or self-care (01) ==
LOC: MTLAB 13:15
PROVIDERS: PCP Family Medicine; Referring Provider Family Medicine; Visit Provider Family Medicine
DX: E11.22 Type 2 diabetes mellitus with diabetic chronic kidney disease (principal); E11.21 Type 2 diabetes mellitus with diabetic nephropathy; N18.9 Chronic kidney disease, unspecified
CPT/HCPCS: 80053; 80061; 82043; 82570; 83036; 85025

== ENCOUNTER → 2024-11-29 | Outpatient (CLI) | payer MEDICARE, MEDICAID, SELFPAY ==
--- NOTE | 2024-11-29 09:29 | RAD_ITS ---
PROCEDURE: CHEST PA AND LATERAL 11/29/2024 REASON FOR EXAM: HICOUGH TECHNIQUE: CHEST PA AND LATERAL COMPARISON: 09/27/2024. FINDINGS: Left chest pacemaker. The lungs are clear. Enlarged pulmonary arteries. No acute osseous abnormalities. RAD/Chest PA and Lateral IMPRESSION: No acute cardiopulmonary abnormality. Enlarged pulmonary arteries which may represent pulmonary hypertension. Reading Location: [id number]
== END | disposition home or self-care (01) ==
LOC: MTRAD 09:22
PROVIDERS: PCP Family Medicine; Referring Provider Family Medicine; Visit Provider Family Medicine
DX: R06.6 Hiccough (principal)
CPT/HCPCS: 71046